=== PATIENT | female | born 1945 | race Caucasian/White ===

== ENCOUNTER → 2019-06-01 | Outpatient (REF) | payer MEDICARE, OTHER ==
[2019-06-01 16:25] LABS: BASO # 0.1 10^3/uL (0.0-0.2); EOS # 0.2 10^3/uL (0.0-0.5); HEMATOCRIT 43.4 % (36.0-47.0); HEMOGLOBIN 13.7 g/dl (12.0-15.5); LYMPH # 2.1 10^3/uL (1.5-5.0); LYMPH % 35.4 % (24.0-44.0); MEAN CORPUSCULAR HEMOGLOBIN 34.3 pg (27.0-33.0); MEAN CORPUSCULAR HGB CONC 31.6 g/dl (32.0-36.5); MEAN CORPUSCULAR VOLUME 108.5 fl (80.0-96.0); MONO # 0.9 10^3/uL (0.0-0.8); NEUTROPHILS # 2.6 10^3/uL (1.5-8.5); NEUTROPHILS % 44.4 % (36.0-66.0); PLATELET COUNT, AUTOMATED 328 10^3/uL (150-450); WHITE BLOOD COUNT 5.9 10^3/uL (4.0-10.0)
[2019-06-01 16:41] LABS: ALBUMIN 3.7 GM/DL (3.2-5.2); ALT/SGPT 19 U/L (12-78); BILIRUBIN,TOTAL 0.3 MG/DL (0.2-1.0); BLOOD UREA NITROGEN 15 MG/DL (7-18); CALCIUM LEVEL 9.2 MG/DL (8.8-10.2); CARBON DIOXIDE LEVEL 33 MEQ/L (21-32); CHLORIDE LEVEL 106 MEQ/L (98-107); CHOLESTEROL LEVEL 213 MG/DL (<200); CHOLESTEROL RISK RATIO 5.325 (<5); CREATININE FOR GFR 0.74 MG/DL (0.55-1.30); FREE THYROXINE INDEX 3.6 % (1.3-4.8); GLOMERULAR FILTRATION RATE > 60.0 (>39); GLUCOSE, FASTING 80 MG/DL (70-100); HDL CHOLESTEROL 40 MG/DL (>40); LDL CHOLESTEROL 109 MG/DL (<100); NON-HDL-C 173 MG/DL; POTASSIUM SERUM 5.1 MEQ/L (3.5-5.1); SODIUM LEVEL 143 MEQ/L (136-145); T UPTAKE 34 % (30-39); THYROXINE (T4) 10.6 UG/DL (4.5-12.0); TOTAL PROTEIN 6.7 GM/DL (6.4-8.2); TRIGLYCERIDES LEVEL 321 MG/DL (<150)
[2019-06-01 16:42] LABS: TOTAL 25(OH) VITAMIN D 29.4 NG/ML (30.0-100.0); VITAMIN B12 LEVEL 705 PG/ML (247-911)
== END ==
LOC: M SFHCCLAY 11:36
PROVIDERS: ATTEND Nurse Practitioner Family
DX: Z13.21 Encounter for screening for nutritional disorder (principal); I63.9 Cerebral infarction, unspecified; F32.9 Major depressive disorder, single episode, unspecified

== ENCOUNTER → 2019-06-23 | Outpatient (CLI) | payer MEDICARE ==
--- NOTE | 2019-06-24 06:43 | REP ---
MRI RIGHT SHOULDER: TECHNIQUE: Axial T2 fat sat, gradient echo, sagittal oblique T2 fat sat, coronal oblique T1, T2 fat sat. The supraspinatus tendon demonstrates mild tendinopathy/tendinitis. In addition there appears to be a focal full thickness tear at the anterior leading edge peripherally. Other rotator cuff tendons appear intact. There are mild hypertrophic degenerative changes of acromioclavicular joint with mild fluid in the joint. The acromion is type II. The biceps tendon is within the bicipital groove with no tendosynovitis. Moderate focal fluid is seen surrounding the supraspinatus muscle and tendon near the musculotendinous junction having an appearance most consistent with focal tenosynovitis. This is just beneath the distal end of the clavicle. There is no Hill-Sachs deformity. There is no abnormal signal in the deltoid muscle. There is mild fraying of the biceps labral complex. There is a focal tear of the posterior labrum and cartilage which breaches the adjacent bony cortex of the posterior glenoid with focal cystic change in that portion of the bone approximately 4 mm in diameter. Remaining portions of the labrum appear intact. Mild subchondral marrow edema is seen in the superolateral humeral head. There is mild fluid in the glenohumeral joint as well as in the subacromial subdeltoid bursae. IMPRESSION: Mild to moderate supraspinatus tendinopathy. Focal full thickness partial tear anterior leading edge of the tendon. There is moderate fluid surrounding the supraspinatus muscle and tendon near the musculotendinous junction having an appearance most consistent with focal tendosynovitis. There are mild hypertrophic degenerative changes of the acromioclavicular joint with a type II acromion. There is fraying of the biceps labral complex. There is a tear of the posterior labrum and adjacent cartilage, breaching the cortex of the bony glenoid with associated focal 4 mm cyst in the subchondral bone. There is also diffuse chondromalacia at the glenohumeral joint. Subcortical marrow edema superolateral humeral head. Mild fluid in the subacromial subdeltoid bursae . Electronically Signed by Ugo Hammond MD 06/24/2019 09:38 A
== END ==
LOC: M RAD 09:13
PROVIDERS: ATTEND Orthopaedic Surgery Sports Medicine
DX: S46.011A Strain of muscle(s) and tendon(s) of the rotator cuff of right shoulder, initial encounter (principal); Y92.9 Unspecified place or not applicable; Y93.9 Activity, unspecified; Y99.9 Unspecified external cause status; M19.011 Primary osteoarthritis, right shoulder

== ENCOUNTER → 2019-10-01 | Outpatient (REF) | payer OTHER ==
[~2019-10-01] MED LIST: ASPI81TA85 PO; ATOR40TA75 PO; BUPR15TASR PO; DONE5TAB82 PO; FENO160T10 PO; OMEP-218 PO; OXYB5TAB10 PO; PREG200C PO; PRIM50TA6 PO; PROP40TA62 PO; TRAZ-257 PO; VENL150C43 PO
[2019-10-01 12:07] LABS: ALBUMIN 3.3 GM/DL (3.2-5.2); BILIRUBIN,DIRECT 6.6 MG/DL (0.0-0.2); BILIRUBIN,TOTAL 8.3 MG/DL (0.2-1.0); CHOLESTEROL RISK RATIO 5.5 (<5); TOTAL PROTEIN 7.4 GM/DL (6.4-8.2)
== END ==
LOC: M SFHCCLAY 08:50
PROVIDERS: ATTEND Nurse Practitioner Family
DX: E78.5 Hyperlipidemia, unspecified (principal)

== ENCOUNTER → 2019-10-01 | Outpatient (REF) | payer OTHER ==
[2019-10-01 12:42] LABS: FOLATE > 24.0 NG/ML; VITAMIN B12 LEVEL > 2000 PG/ML
[2019-10-04 00:06] LABS: VITAMIN B1 LEVEL WHOLE BLOOD 173.8 nmol/L (66.5-200.0); VITAMIN B6,PYRIDOXAL PHOSPHATE 15.6 ug/L (2.0-32.8)
== END ==
LOC: M LABDRAWC 11:09
PROVIDERS: ATTEND Psychiatry & Neurology Neurology
DX: H53.2 Diplopia (principal); E53.8 Deficiency of other specified B group vitamins

== ENCOUNTER 2019-10-02 14:25 | Inpatient (IN) | payer MEDICARE, OTHER ==
[~2019-10-02] VITALS: Ht 157.5 cm; Wt 52.5 kg
[2019-10-02 15:14] LABS: BASO % 0.2 % (0.0-1.0); EOS % 0.2 % (0.0-3.0); HEMATOCRIT 35.1 % (36.0-47.0); HEMOGLOBIN 12.1 g/dl (12.0-15.5); LYMPH % 7.5 % (24.0-44.0); MEAN CORPUSCULAR HEMOGLOBIN 32.4 pg (27.0-33.0); MEAN CORPUSCULAR HGB CONC 34.5 g/dl (32.0-36.5); MEAN CORPUSCULAR VOLUME 94.1 fl (80.0-96.0); MONO # 1.5 10^3/uL (0.0-0.8); MONO % 11.3 % (0.0-5.0); NEUTROPHILS # 10.5 10^3/uL (1.5-8.5); NEUTROPHILS % 80.3 % (36.0-66.0); PLATELET COUNT, AUTOMATED 309 10^3/uL (150-450); RED BLOOD COUNT 3.73 10^6/uL (4.00-5.40); WHITE BLOOD COUNT 13.1 10^3/uL (4.0-10.0)
[2019-10-02] MEDS ORDERED: BUPR15TASR PO (15:22)
[2019-10-02] MEDS ORDERED: FENO160T10 PO (15:22)
[2019-10-02] MEDS ORDERED: PROP40TA62 PO (15:22)
[2019-10-02] MEDS ORDERED: PREG200C PO (15:22)
[2019-10-02] MEDS ORDERED: PRIM50TA6 PO (15:22)
[2019-10-02] MEDS ORDERED: OXYB5TAB10 PO (15:22)
[2019-10-02] MEDS ORDERED: ASPI81TA85 PO (15:22)
[2019-10-02] MEDS ORDERED: OMEP-218 PO (15:22)
[2019-10-02] MEDS ORDERED: ATOR40TA75 PO (15:22)
[2019-10-02] MEDS ORDERED: TRAZ-257 PO (15:22)
[2019-10-02] MEDS ORDERED: DONE5TAB82 PO (15:22)
[2019-10-02] MEDS ORDERED: VENL150C43 PO (15:22)
--- NOTE | 2019-10-02 15:41 | REP ---
REASON: Altered mental status. COMPARISON: None. Patchy and somewhat curvilinear right lower lobe opacities are noted. Pleural angles are sharp and the heart is not enlarged. The osseous structures are within normal limits. IMPRESSION: Right lower lobe opacities as described above. Subsegmental atelectasis versus developing pneumonia. Correlate clinically. Electronically Signed by Esteban Ellis DO 10/02/2019 04:53 P
--- NOTE | 2019-10-02 15:45 | REP ---
REASON: Altered mental status. The ventricles and sulci are within normal limits. There are no extra-axial fluid collections. There is no shift of the midline structures. Patchy lucencies are seen throughout the deep cerebral white matter. The posterior fossa is within normal limits. The cerebellopontine angles are within normal limits. The sella turcica, cavernous, and paracavernous structures are within normal limits. The imaged paranasal sinuses and mastoid air cells are clear. IMPRESSION: Age-related deep white matter ischemic changes. Electronically Signed by Esteban Ellis DO 10/02/2019 04:53 P
[2019-10-02] MEDS: GASTROGRAFIN SOLUTION 30ML PO SCH ×2 (16:09→16:34)
[2019-10-02 16:13] LABS: ACETAMINOPHEN LEVEL < 2.0 UG/ML (10.0-30.0); ALBUMIN 2.9 GM/DL (3.2-5.2); ALT/SGPT 216 U/L (12-78); BILIRUBIN,TOTAL 11.6 MG/DL (0.2-1.0); BLOOD UREA NITROGEN 9 MG/DL (7-18); CALCIUM LEVEL 8.7 MG/DL (8.8-10.2); CARBON DIOXIDE LEVEL 27 MEQ/L (21-32); CHLORIDE LEVEL 99 MEQ/L (98-107); CK-MB VALUE MASS 1.5 NG/ML (<3.6); CPK CREATINE PHOSPHOKINASE 108 U/L (26-192); CREATININE FOR GFR 0.55 MG/DL (0.55-1.30); ETHYL ALCOHOL (ETHANOL) < 0.003 % (0.000-0.010); GLOMERULAR FILTRATION RATE > 60.0 (>39); GLUCOSE, FASTING 75 MG/DL (70-100); LIPASE 121 U/L (73-393); MB/CK RELATIVE INDEX 1.39 (< OR =4); POTASSIUM SERUM 2.9 MEQ/L (3.5-5.1); SALICYLATE LEVEL < 1.7 MG/DL (5.0-30.0); SODIUM LEVEL 134 MEQ/L (136-145); TOTAL PROTEIN 6.6 GM/DL (6.4-8.2); TROPONIN I < 0.02 NG/ML (< 0.10)
[2019-10-02] MEDS ORDERED: POTASSIUM CHLORIDE 10 MEQ SR TABLET PO ONE (16:15)
[2019-10-02] MEDS ORDERED: KCL 10MEQ/100ML SWI (KRUN) 10 MEQ in IV 1 EA IV ONE (16:15)
[2019-10-02] MEDS ORDERED: ONDANSETRON 4MG/2ML VIAL As Ordered ONE (16:31)
[2019-10-02] MEDS ORDERED: ONDANSETRON 4MG/2ML VIAL IV ONE ×2 (16:45→20:00)
[2019-10-02] MEDS ORDERED: ISOVUE-370 76% 100ML VIAL As Ordered ONE (17:27)
--- NOTE | 2019-10-02 18:30 | REPVR ---
PROCEDURE INFORMATION: Exam: CT Abdomen And Pelvis With Contrast Exam date and time: 10/02/2019 5:46 PM Age: 74 years old Clinical indication: Abdominal pain; Additional info: Upper abd pain, jaundiced TECHNIQUE: Imaging protocol: Computed tomography of the abdomen and pelvis with intravenous contrast. Radiation optimization: All CT scans at this facility use at least one of these dose optimization techniques: automated exposure control; mA and/or kV adjustment per patient size (includes targeted exams where dose is matched to clinical indication); or iterative reconstruction. Contrast material: ISO 370; Contrast volume: 100 ml; Contrast route: IV; COMPARISON: No relevant prior studies available. FINDINGS: Liver: Normal. No mass. Gallbladder and bile ducts: Intrahepatic biliary ductal dilatation. There common bile duct is dilated and measuring 11 mm. Pancreas: Normal. No ductal dilation. Spleen: 1 cm hyperdense lesion in the spleen. Adrenals: Normal. No mass. Kidneys and ureters: 1.5 cm cyst at the lower pole of the right kidney. Stomach and bowel: There is rectal and distal sigmoid colonic wall thickening. No pericolonic fat stranding. Evidence of prior left colectomy. Appendix: No evidence of appendicitis. Intraperitoneal space: Unremarkable. No free air. No significant fluid collection. Vasculature: Unremarkable. No abdominal aortic aneurysm. Lymph nodes: Unremarkable. No enlarged lymph nodes. Bladder: Unremarkable as visualized. Reproductive: Unremarkable as visualized. Bones/joints: Degenerative changes of the spine. Soft tissues: Unremarkable. IMPRESSION: Common bile duct is dilated with intrahepatic biliary ductal dilatation. Findings may suggest post cholecystectomy changes, however a distal stricture or lesion in the common bile duct cannot be excluded. MRI and MRCP is suggested for further evaluation. Rectal and distal sigmoid colonic wall thickening. Differential includes infection/inflammation/neoplastic lesion. Electronically signed by: Adithya Noyola On 10/02/2019 18:30:20 PM
[2019-10-02 19:42] LABS: AMPHETAMINES LEVEL URINE NEGATIVE (NEGATIVE); BARBITURATES URINE NEGATIVE (NEGATIVE); BENZODIAZEPINES URINE NEGATIVE (NEGATIVE); CANNABINOIDS URINE NEGATIVE (NEGATIVE); COCAINE METABOLITE URINE NEGATIVE (NEGATIVE); METHADONE URINE NEGATIVE (NEGATIVE); OPIATES URINE NEGATIVE (NEGATIVE); PHENCYCLIDINE URINE NEGATIVE (NEGATIVE)
[2019-10-02] MEDS: PIPERACILLIN/TAZOBACTAM SOD 3.375 GM in D5W MINI-BAG PLUS 50 ML IV SCH (20:08)
[2019-10-02] MEDS ORDERED: ACETAMINOPHEN TAB 650MG DOSE (2X325MG) PO PRN (20:15)
[2019-10-02] MEDS ORDERED: ONDANSETRON 4MG/2ML VIAL IV PRN (20:15)
[2019-10-02] MEDS ORDERED: MOM 30ML SUSPENSION UDC PO PRN (20:15)
[2019-10-02] MEDS ORDERED: MORPHINE 2 MG/ML 1ML VIAL (J2270) IV PRN (20:45)
[2019-10-02] MEDS ORDERED: traMADol 50 MG TAB PO PRN (20:45)
[2019-10-02 21:23] LABS: INR 1.1; PROTHROMBIN TIME 13.9 SECONDS (11.8-14.0)
[2019-10-02 21:36] VITALS: BP 138/70
[2019-10-02] MEDS ORDERED: PILL CUTTER 1 EACH XX PRN (21:45)
[2019-10-02] MEDS: PRIMIDONE 50 MG TAB PO SCH (22:26)
[2019-10-02] MEDS: VENLAFAXINE **XR** 75MG CAPSULE PO SCH (22:27)
[2019-10-02] MEDS: PREGABALIN 100 MG CAP (LYRICA) PO SCH (22:27)
[2019-10-02] MEDS: oxyBUTYnin 5 MG TAB PO SCH (22:27)
[2019-10-02] MEDS: traZODone 100 MG TAB PO SCH (22:27)
[2019-10-02] MEDS: HEPARIN SOD (PORCINE) 5000UNITS/ML VIAL (J1644 PER 1000UNITS) SC SCH (22:28)
[2019-10-03] VITALS (8 sets, daily range): BP systolic 134–157; BP diastolic 62–77
[2019-10-03] MEDS: D5W/0.45% SODIUM CHLORIDE 1,000 ML IV SCH ×2 (00:28→13:08)
--- NOTE | 2019-10-03 01:11 | HPEPDOC ---
General Date of Admission Oct 02, 2019 at 20:24 Date of Service: Oct 02, 2019 Attending Physician: YENNY SALCEDO MD Chief Complaint The patient is a 74-year-old female admitted with a reason for visit of Hypokalemia,Jaundice. History of Present Illness HPI: This is a 74-year-old female presenting for sharp right-sided nonradiating abdominal pain that is intermittent and associated with nausea vomiting that started 2 days ago without any inciting factors. She denies any aggravating or alleviating factors. Also has noted gradually worsening jaundice and decreased appetite over the past 1-2 weeks, with associated 5 pound unintentional weight loss, chills, and pale-appearing stools. She reports she had similar abdominal pain with nausea and vomiting couple months ago in February 2019 when she was found to have gallstones that were removed via ERCP sweep back in [place]. She denies any recent sick contacts, travel, changes in medications or diet. Denies any fevers, shortness of breath, rashes, or blood loss. In the ER, she is noted to be severely jaundiced with T bili 11.6, direct bili 10, AST/ALT 218/216, alkaline phosphatase 322, and CT of the abdomen and pelvis showing common bile duct dilated, intrahepatic biliary duct dilation, and rectal and distal sigmoid colonic thickening. Patient is afebrile, WBC 13.1, and hemodynamically stable with normal lactate at 1.8. Patient will be admitted for further workup, and GI Dr. Torres has been consulted, pending MRCP and ERCP. 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 Admits chills and 5lb unintentional weight loss in past 1 month HEENT: Denies headache, dysphagia, odynophagia. Admits yellowing of eyes Skin: Denies any rashes or lesions. Admits jaundice Pulmonary: Denies dyspnea, cough, wheezing Cardiac: Denies chest pain, palpitations, orthopnea, PND, edema, lightheadedness GI: Denies vomiting or blood loss or constipation. Admits nausea, abdominal pain, diarrhea of loose stools, reid-colored stools, dark urine. Admits decreased po intake & decreased appetite : Denies dysuria, hematuria, retention. Admits overactive bladder MSK: Denies new pains or weakness Neurologic: Denies new numbness/tingling. Admits memory issues at baseline PHYSICAL: General exam: A&O x3, NAD, resting comfortably HEENT: NCAT, EOMI, scleral icterus present, MMM without oral lesions, neck supple Cardiac: RRR, normal S1 & S2, 2/6 systolic murmur, no edema Respiratory: CTAB, good air exchange, no w/r/r Abdomen: soft, ND, normoactive bowel sounds, no appreciable masses or splenomegaly. Tender to palpation more in LUQ. No rebound, guarding, rigidity Extremity: 2+ radial pulses, 1+ dorsalis pedis, no calf tenderness Skin: warm, dry, no visible rash. Jaundiced throughout Msk: strength 5/5 x4, normal tone Neuro: normal speech, no focal deficits. Memory issues Psych: Normal mood and affect LABORATORY DATA, MICROBIOLOGY: Please see below. ASSESSMENT AND PLAN: This is a 74 yo F presenting for abd pain, nausea, vomiting, decreased appetite, jaundice, reid-colored stools, 5-lb wt loss worsening over the past 1 week. Has a hx of gallstones that were removed with ERCP sweep in [place] in Feb 2019. Imaging this time reveals dilated CBD & intrahepatic biliary duct. 1. Jaundice - Gradually worsening last 1-2 weeks - Associated n/v abd pain, decreased appetite, reid-colored stools - T Bili 11.6, D Bili 10.0, AST/ALT 218/216, alkaline phosphatase 322 - CT abdomen and pelvis: Common bile duct dilated to 11 mm with intrahepatic biliary ductal dilation - Choledocholithiasis versus biliary stenosis/mass effect/malignancy - Hepatitis panel pending, Tox screen negative - GI Dr. Torres consulted, appreciate input: MRCP ordered. NPO after midnight for pending ERCP 10/03/19 2. Possible colitis - Abdominal pain with chills and decreased appetite, nausea and vomiting - CT abdomen pelvis noted rectal and distal sigmoid colonic wall thickening - Afebrile, but WBC 13. Imaging may be noting inflammatory changes, but will start empiric coverage with Zosyn till remaining w/u is complete - Monitor I/O, bowel mvmts. On IVF & pain control 3. Hypokalemia - 2.9 on admission. Asymptomatic - Likely 2/2 decreased po intake, increased n/v - Supplemented po & IV. Monitor on tele - repeat in am 4. Murmur - Pt denies cardiac hx or prior murmurs - Cardiac markers negative, EKG on admission in NSR in 70s with left axis deviation, no ST-T abnormalities - Hemodynamically stable with no decompensation on exam - Echo ordered For the remainder of her chronic medical conditions as listed above, home meds are resumed. DVT prophylaxis: heparin sc CODE STATUS: discussed in depth with pt, requesting FULL CODE, and HCP is her [id number] Buffy Fisher ([phone]) while her son is deployed. DISPOSITION: admit to hospital. GI consulted, pending ERCP. Home Medications Scheduled Aspirin (Aspir 81) 81 Mg Tablet.dr, 81 MG PO DAILY, (Reported) Atorvastatin Calcium (Atorvastatin Calcium) 40 Mg Tablet, 40 MG PO DAILY, (Reported) Bupropion HCl (Bupropion HCl Sr) 150 Mg Tab.er.12h, 150 MG PO DAILY, (Reported) Donepezil HCl (Donepezil HCl) 5 Mg Tablet, 5 MG PO DAILY, (Reported) Fenofibrate (Fenofibrate) 160 Mg Tablet, 160 MG PO DAILY, (Reported) Omeprazole (Omeprazole) 20 Mg Capsule.dr, 20 MG PO DAILY, (Reported) Oxybutynin Chloride (Oxybutynin Chloride) 5 Mg Tablet, 5 MG PO BID, (Reported) Pregabalin (Pregabalin) 200 Mg Capsule, 200 MG PO BID, (Reported) Primidone (Primidone) 50 Mg Tablet, 25 MG PO QHS, (Reported) Propranolol HCl (Propranolol HCl) 40 Mg Tablet, 40 MG PO DAILY, (Reported) Trazodone HCl (Trazodone HCl) 100 Mg Tablet, 100 MG PO QHS, (Reported) Venlafaxine HCl (Venlafaxine HCl ER) 150 Mg Cap.er.24h, 150 MG PO BID, (Reporte d) Allergies Coded Allergies: morphine (Verified Adverse Reaction, Mild, restlessness, 10/02/19) A-FIB/CHADSVASC A-FIB History Current/History of A-Fib/PAF?: No Vital Signs Vital Signs Date Time Temp Pulse Resp B/P (MAP) Pulse Ox O2 Delivery O2 Flow Rate FiO2 10/02/19 20:50 75 10/02/19 20:45 148/72 (97) 10/02/19 20:35 18 95 Room Air 10/02/19 14:25 97.4 Laboratory Data Labs 24H Laboratory Tests 2 10/02/19 15:02: Immature Granulocyte % (Auto) 0.5, Neutrophils (%) (Auto) 80.3H, Lymphocytes (%) (Auto) 7.5L, Monocytes (%) (Auto) 11.3H, Eosinophils (%) (Auto) 0.2, Basophils (%) (Auto) 0.2, Neutrophils # (Auto) 10.5H, Lymphocytes # (Auto) 1.0L, Monocytes # (Auto) 1.5H, Eosinophils # (Auto) 0.0, Basophils # (Auto) 0.0, Nucleated Red Blood Cells % (auto) 0.0, Anion Gap 8, Glomerular Filtration Rate > 60.0, Calcium Level 8.7L, Total Bilirubin 11.6H, Direct Bilirubin 10.0H, Aspartate Amino Transf (AST/SGOT) 218H, Alanine Aminotransferase (ALT/SGPT) 216H, Alkaline Phosphatase 322H, Ammonia < 10, Total Creatine Kinase 108, Creatine Kinase MB 1.5, Creatine Kinase MB Relative Index 1.39, Troponin I < 0.02, Total Protein 6.6, Albumin 2.9L, Albumin/Globulin Ratio 0.78L, Lipase 121, Thyroid Stimulating Hormone (TSH) 1.980, Salicylates Level < 1.7L, Acetaminophen Level < 2.0L, Ethyl Alcohol Level < 0.003 10/02/19 15:58: Urine Color GARTH, Urine Appearance CLEAR, Urine pH 6.0, Urine Specific [place] 1.006, Urine Protein NEGATIVE, Urine Glucose (UA) NEGATIVE, Urine Ketones TRACEH, Urine Blood NEGATIVE, Urine Nitrite NEGATIVE, Urine Bilirubin 2+H, Urine Urobilinogen 2.0H, Urine Leukocyte Esterase NEGATIVE, Urine WBC (Auto) 0, Urine RBC (Auto) 1, Urine Hyaline Casts (Auto) 0, Urine Bacteria (Auto) NEGATIVE, Urine Squamous Epithelial Cells 0, Urine Mucus (Auto) SMALL, Urine Sperm (Auto) 10/02/19 18:49: Urine Opiates Screen NEGATIVE, Urine Methadone Screen NEGATIVE, Urine Barbiturates Screen NEGATIVE, Urine Phencyclidine Screen NEGATIVE, Urine Amphetamines Screen NEGATIVE, Urine Benzodiazepines Screen NEGATIVE, Urine Cocaine Metabolite Screen NEGATIVE, Urine Cannabinoids Screen NEGATIVE 10/02/19 21:00: Prothrombin Time 13.9, Prothromb Time International Ratio 1.10, Magnesium Level 1.8 CBC/BMP Laboratory Tests 10/02/19 15:02 Microbiology Microbiology 10/02/19 Blood Culture, Received Pending 10/02/19 Blood Culture, Received Pending Plan / VTE VTE Prophylaxis Ordered?: Yes GME ATTESTATION GME ATTESTATION My faculty preceptor for this patient encounter was physically present during the encounter and was fully available. All aspects of the patient interview, examination, medical decision making process, and medical care plan development were reviewed and approved by the faculty preceptor. The faculty preceptor is aware and concurs with the plan as stated in the body of this note and will attest to such by his/her cosignature. ATTENDING NOTE I, Yenny Salcedo, have independently examined this patient and performed my own physical exam, as well as reviewed the documentation and edited where necessary. I have discussed in detail with the resident / student the findings and plan of treatment as documented by the resident / student and edited their note. I agree with their findings and treatment plan and have edited their documentation. I will continue to follow the patient during this hospital stay. PRECIOUS MORGAN DO Oct 03, 2019 01:10 YENNY SALCEDO MD Oct 03, 2019 03:26
[2019-10-03] MEDS: PIPERACILLIN/TAZOBACTAM SOD 3.375 GM in D5W MINI-BAG PLUS 50 ML IV SCH ×4 (02:38→21:21)
--- NOTE | 2019-10-03 06:33 | REPVR ---
PROCEDURE INFORMATION: Exam: MR Abdomen Without Contrast; Liver Exam date and time: 10/03/2019 8:07 PM Age: 74 years old Clinical indication: Other: Jaundice; Additional info: Cbd dilation, jaundice, abd pain TECHNIQUE: Imaging protocol: MR Abdomen without contrast. Exam focused on the liver. 3D rendering: MIP and/or 3D reconstructed images were created by the technologist. COMPARISON: CT ABD/PEL W/IV ORAL CONTRAS 10/02/2019 5:37 PM FINDINGS: Liver: Unremarkable liver. No lesions. Gallbladder and bile ducts: The patient is status post cholecystectomy. The CBD is dilated measuring up to 1.1 cm containing multiple filling defects with [id number] intrahepatic biliary ductal dilatation. Filling defects are also seen in the distal left hepatic lobe duct. Pancreas: Normal. Spleen: There is 1 cm and 6 mm splenic incompletely characterized T2 hyperintensity. Kidneys and ureters: There is a 1.7 x 1.6 cm right lower renal pole simple cyst. Intraperitoneal space: No free fluid. Bones/joints: There is lumbar spine scoliosis. IMPRESSION: 1. Status post cholecystectomy with multiple choledocholithiasis apparently extending to the distal left hepatic lobe duct with moderate intrahepatic biliary ductal dilatation. No obvious pancreatic head mass seen. Findings are likely the sequela distal CBD /ampullary stricture. Occult pancreatic head lesion cannot be completely excluded though felt less likely due to lack of pancreatic ductal dilatation. 2. 1 cm in 6 mm splenic incompletely characterized T2 hyperintensities. Further characterization may be obtained with contrast enhanced MRI. 3. 1.7 cm simple appearing right renal cyst. No follow-up is deemed necessary. Electronically signed by: Lopez Camilo On 10/03/2019 06:33:07 AM
[2019-10-03 06:37] LABS: HEMATOCRIT 35.5 % (36.0-47.0); MEAN CORPUSCULAR HEMOGLOBIN 32.4 pg (27.0-33.0); MEAN CORPUSCULAR HGB CONC 33.8 g/dl (32.0-36.5); MEAN CORPUSCULAR VOLUME 95.9 fl (80.0-96.0); PLATELET COUNT, AUTOMATED 307 10^3/uL (150-450); WHITE BLOOD COUNT 8.5 10^3/uL (4.0-10.0)
[2019-10-03 07:09] LABS: ALBUMIN 2.6 GM/DL (3.2-5.2); ALT/SGPT 199 U/L (12-78); BILIRUBIN,TOTAL 11.9 MG/DL (0.2-1.0); BLOOD UREA NITROGEN 10 MG/DL (7-18); CALCIUM LEVEL 8.6 MG/DL (8.8-10.2); CARBON DIOXIDE LEVEL 27 MEQ/L (21-32); CHLORIDE LEVEL 103 MEQ/L (98-107); CREATININE FOR GFR 0.71 MG/DL (0.55-1.30); GLOMERULAR FILTRATION RATE > 60.0 (>39); GLUCOSE, FASTING 77 MG/DL (70-100); POTASSIUM SERUM 3.3 MEQ/L (3.5-5.1); SODIUM LEVEL 139 MEQ/L (136-145); TOTAL PROTEIN 6.2 GM/DL (6.4-8.2)
[2019-10-03] MEDS ORDERED: KCL 10MEQ/100ML SWI (KRUN) 10 MEQ in IV 1 EA IV ONE ×3 (08:15→18:15)
[2019-10-03 08:29] LABS: MAGNESIUM LEVEL 1.8 MG/DL (1.8-2.4)
[2019-10-03] MEDS: ATORVASTATIN 20 MG TAB PO SCH (09:00)
[2019-10-03] MEDS: HEPARIN SOD (PORCINE) 5000UNITS/ML VIAL (J1644 PER 1000UNITS) SC SCH ×2 (09:00→21:22)
[2019-10-03] MEDS: VENLAFAXINE **XR** 75MG CAPSULE PO SCH ×2 (09:00→21:22)
[2019-10-03] MEDS: FENOFIBRATE 145 MG TAB (TRICOR) PO SCH (09:00)
[2019-10-03] MEDS: PROPRANOLOL 20 MG TAB PO SCH (09:00)
[2019-10-03] MEDS: oxyBUTYnin 5 MG TAB PO SCH ×2 (09:00→21:22)
[2019-10-03] MEDS: OMEPRAZOLE 20 MG CAP PO SCH (09:00)
[2019-10-03] MEDS: DONEPEZIL 5 MG TAB PO SCH (09:00)
[2019-10-03] MEDS: buPROPion **SR TABLET** (ZYBAN) 150MG PO SCH (09:00)
[2019-10-03] MEDS: ASPIRIN 81 MG ENTERIC TAB PO SCH (09:00)
[2019-10-03] MEDS: PREGABALIN 100 MG CAP (LYRICA) PO SCH ×2 (09:00→21:21)
[2019-10-03 10:58] LABS: HEPATITIS A ANTIBODY IGM NEGATIVE (NEGATIVE); HEPATITIS B CORE ANTIBODY IGM NEGATIVE (NEGATIVE); HEPATITIS B SURFACE ANTIGEN NEGATIVE (NEGATIVE); HEPATITIS C VIRUS ABY INDEX 0.1 INDEX (<0.8)
--- NOTE | 2019-10-03 13:22 | IPNPDOC ---
Text Note Date of Service The patient was seen on 10/03/19. NOTE Subjective: Patient stated that her pain subsided. She denied fever, chills, nausea, vomiting, diarrhea or dysuria Objective: VITAL SIGNS: Please see below. GENERAL: awake, alert, NAD, jaundice female HEENT: NCAT, icterus, YOSEF NECK: supple, no JVD CARDIOVASCULAR EXAMINATION: NS1S2, regular rate/rhythm RESPIRATORY EXAMINATION: CTA b/l, no wheezes/rales/rhonchi ABDOMINAL EXAMINATION: positive bowel sounds x 4, NT EXTREMITIES: no cyanosis, clubbing, edema SKIN: warm, no rashes. NEUROLOGICAL EXAMINATION: AAO x 3, no motor/sensory deficits PSYCHIATRIC EXAMINATION: calm, normal affect Assessment and plan Patient is 74 years old female with past medical history dementia, TIA presented to the hospital with abdominal pain secondary to choledocholithiasis. Sepsis Blood culture came back positive for gram-negative rods secondary to choledocholithiasis Patient has significantly elevated total bilirubin and transaminases Continue Zosyn IV I will repeat blood culture Choledocholithiasis CT abdomen and pelvis: Common bile duct dilated to 11 mm with intrahepatic biliary ductal dilation MRCP was done and showed The CBD is dilated measuring up to 1.1 cm containing multiple filling defects with [id number] intrahepatic biliary ductal dilatation ERCP today Jaundice Secondary to common bile duct dilatation See above Hypokalemia Secondary to vomiting Replaced Abdominal pain Secondary to choledocholithiasis Pain management VS,Fishbone, I+O VS, Fishbone, I+O Laboratory Tests 10/02/19 15:02 10/03/19 06:15 Vital Signs Date Time Temp Pulse Resp B/P (MAP) Pulse Ox O2 Delivery O2 Flow Rate FiO2 10/03/19 06:00 98.9 79 18 138/62 (87) 94 Room Air I&O- Last 24 Hours up to 6 AM 10/03/19 06:00 Intake Total 170 ml Output Total 800 ml Balance -630 ml JN ESQUIVEL DO Oct 03, 2019 13:22
--- NOTE | 2019-10-03 14:24 | CR.PDOC ---
General Date of Consultation: Oct 03, 2019 Referring Provider: JN ESQUIVEL DO Attending Physician: ZAY CONN MD Consultation Primary physician/ hospitalist: -Dr. Almazan Reason for consult: -Abnormal liver tests and jaundice HPI: 74-year-old female patient with HTN, HLD, depression, dementia, TIA in March 2019 (on aspirin 81 MG), presented to [facility] for abdominal pain associated with nausea and vomiting. Patient was noted with severe cholestasis in labs and had CT and ultrasound abdomen, which showed dilated CBD with prior cholecystectomy. GI was consulted for the same. Patient reports sharp right-sided nonradiating abdominal pain that is intermittent and associated with nausea vomiting that started 2 days ago without any inciting factors. She denies any aggravating or alleviating factors. Also has noted gradually worsening jaundice and decreased appetite over the past 1-2 weeks, with associated 5 pound unintentional weight loss, chills, and pale-appearing stools. She reports she had similar abdominal pain with nausea and vomiting couple months ago in February 2019 when she was found to have gallstones that were removed via ERCP sweep back in [place]. Pertinent negative GI symptoms: Patient denies fever, sick contacts, recent travel. No history of hematemesis, melena or hematochezia. Patient reports regular bowel movements. Review of Systems: GI: as stated above CVS: No chest pain, No palpitations, No leg swelling. RS: No Shortness of breath, No Wheezing, no cough PLC ENGINEER: No dizziness, No motor weakness, No sensory problems Hematology: No bruising, No gum bleeding, Musculoskeletal: No joint pain, ambulating well. Skin: No rash : No hematuria, No burning sensation of the urine ENT: No ear discharge/ pain, No dysphagia. Eyes: No photophobia. Jaundice Home medications: reviewed. Antithrombotic agents: -Aspirin 81 MG Medical h/o: As above. Surgical h/o: Multiple prior abdominal surgeries - with bowel resection in past with colostomy in past. Social h/o: Alcohol: -Remote history of heavy alcohol use, quit 30 years ago, smoking:. Denies, IVDA/ drugs: Denies. Family h/o of GI cancers - None Prior Endoscopies: None in [facility] Prior GI evaluations: -In [facility]. Patient was known to have CBD stones in the past as per HPI Exam: Vitals: reviewed General: Alert and oriented x 3, not in distress HEENT: NO pallor, no icterus. Normal oropharynx, NO cervical lymph nodes. Chest: symmetric with bilateral clear air entry, CVS: S1, S2 heard, normal, no murmurs . Abdomen: non-distended, multiple abdominal surgical scars, soft, non-tender, no palpable masses, normal bowel sounds heard. Rectal exam: Patient refused / Deferred at this time. Extremities: no pedal edema, pulses palpable. PLC ENGINEER: no focal motor or sensory deficits. Moves all extremities Skin: no rash. Labs: reviewed. Imaging: reviewed. 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 Impression: -Upper abdominal pain with nausea and vomiting, jaundice, cholestatic liver panel, and abdominal imaging including MRI liver protocol showed multiple CBD stones. Recommendations: - Patient educated about the test results, possible differential diagnoses and All questions answered. - Nothing by mouth, - IV hydration. - Continue home medications - Patient will be scheduled for ERCP with sphincterotomy, stone extraction with/without stent placement. - The procedure, indications, risks (bleeding, perforation, infection, hypotension, respiratory depression, allergy, need for endotracheal intubation, surgery, colostomy, cardiac arrest, even ), benefits, limitations (e.g., missing a lesion), and all other alternatives (including no intervention) were explained to the patient who understood and agreed for the procedure. - Please follow operative note for postprocedure recommendations Plan of care discussed with patient and primary team. Patient verbalized understanding and agreed with the plan. Vital Signs/I&O Vital Signs Date Time Temp Pulse Resp B/P (MAP) Pulse Ox O2 Delivery O2 Flow Rate FiO2 10/03/19 06:00 98.9 79 18 138/62 (87) 94 Room Air l I&O- Last 24 Hours up to 6 AM 10/03/19 05:59 Intake Total 170 ml Output Total 800 ml Balance -630 ml Laboratory Data Labs 24H Laboratory Tests 2 10/02/19 15:02: Immature Granulocyte % (Auto) 0.5, Neutrophils (%) (Auto) 80.3H, Lymphocytes (%) (Auto) 7.5L, Monocytes (%) (Auto) 11.3H, Eosinophils (%) (Auto) 0.2, Basophils (%) (Auto) 0.2, Neutrophils # (Auto) 10.5H, Lymphocytes # (Auto) 1.0L, Monocytes # (Auto) 1.5H, Eosinophils # (Auto) 0.0, Basophils # (Auto) 0.0, Nucleated Red Blood Cells % (auto) 0.0, Anion Gap 8, Glomerular Filtration Rate > 60.0, Calcium Level 8.7L, Total Bilirubin 11.6H, Direct Bilirubin 10.0H, Aspartate Amino Transf (AST/SGOT) 218H, Alanine Aminotransferase (ALT/SGPT) 216H, Alkaline Phosphatase 322H, Ammonia < 10, Total Creatine Kinase 108, Creatine Kinase MB 1.5, Creatine Kinase MB Relative Index 1.39, Troponin I < 0.02, Total Protein 6.6, Albumin 2.9L, Albumin/Globulin Ratio 0.78L, Lipase 121, Thyroid Stimulating Hormone (TSH) 1.980, Salicylates Level < 1.7L, Acetaminophen Level < 2.0L, Ethyl Alcohol Level < 0.003, Hepatitis A IgM Antibody NEGATIVE, Hepatitis B Surface Antigen NEGATIVE, Hepatitis B Core IgM Antibody NEGATIVE, Hepatitis C Antibody Index 0.1 10/02/19 15:58: Urine Color GARTH, Urine Appearance CLEAR, Urine pH 6.0, Urine Specific Moore 1.006, Urine Protein NEGATIVE, Urine Glucose (UA) NEGATIVE, Urine Ketones TRACEH, Urine Blood NEGATIVE, Urine Nitrite NEGATIVE, Urine Bilirubin 2+H, Urine Urobilinogen 2.0H, Urine Leukocyte Esterase NEGATIVE, Urine WBC (Auto) 0, Urine RBC (Auto) 1, Urine Hyaline Casts (Auto) 0, Urine Bacteria (Auto) NEGATIVE, Urine Squamous Epithelial Cells 0, Urine Mucus (Auto) SMALL, Urine Sperm (Auto) 10/02/19 18:49: Urine Opiates Screen NEGATIVE, Urine Methadone Screen NEGATIVE, Urine Barbiturates Screen NEGATIVE, Urine Phencyclidine Screen NEGATIVE, Urine Amphetamines Screen NEGATIVE, Urine Benzodiazepines Screen NEGATIVE, Urine Cocaine Metabolite Screen NEGATIVE, Urine Cannabinoids Screen NEGATIVE 10/02/19 21:00: Prothrombin Time 13.9, Prothromb Time International Ratio 1.10, Magnesium Level 1.8 10/03/19 06:15: Nucleated Red Blood Cells % (auto) 0.0, Anion Gap 9, Glomerular Filtration Rate > 60.0, Calcium Level 8.6L, Magnesium Level 1.8, Total Bilirubin 11.9H, Aspartate Amino Transf (AST/SGOT) 199H, Alanine Aminotransferase (ALT/SGPT) 199H, Alkaline Phosphatase 310H, Total Protein 6.2L, Albumin 2.6L, Albumin/Globulin Ratio 0.72L 10/03/19 13:46: Lactic Acid Level 1.1 CBC/BMP Laboratory Tests 10/02/19 15:02 10/03/19 06:15 10/03/19 13:46 Microbiology Microbiology 10/03/19 Blood Culture, Received Pending 10/02/19 Blood Culture, Received Pending 10/02/19 Blood Culture - Preliminary, Resulted Allergies Coded Allergies: morphine (Verified Adverse Reaction, Mild, restlessness, 10/02/19) Home Medications Scheduled Aspirin (Aspir 81) 81 Mg Tablet.dr, 81 MG PO DAILY, (Reported) Atorvastatin Calcium (Atorvastatin Calcium) 40 Mg Tablet, 40 MG PO DAILY, (Reported) Bupropion HCl (Bupropion HCl Sr) 150 Mg Tab.er.12h, 150 MG PO DAILY, (Reported) Donepezil HCl (Donepezil HCl) 5 Mg Tablet, 5 MG PO DAILY, (Reported) Fenofibrate (Fenofibrate) 160 Mg Tablet, 160 MG PO DAILY, (Reported) Omeprazole (Omeprazole) 20 Mg Capsule.dr, 20 MG PO DAILY, (Reported) Oxybutynin Chloride (Oxybutynin Chloride) 5 Mg Tablet, 5 MG PO BID, (Reported) Pregabalin (Pregabalin) 200 Mg Capsule, 200 MG PO BID, (Reported) Primidone (Primidone) 50 Mg Tablet, 25 MG PO QHS, (Reported) Propranolol HCl (Propranolol HCl) 40 Mg Tablet, 40 MG PO DAILY, (Reported) Trazodone HCl (Trazodone HCl) 100 Mg Tablet, 100 MG PO QHS, (Reported) Venlafaxine HCl (Venlafaxine HCl ER) 150 Mg Cap.er.24h, 150 MG PO BID, (Reported) ZAY CONN MD Oct 03, 2019 14:24
[2019-10-03] MEDS ORDERED: ISOVUE-300 61% 50ML VIAL As Ordered ONE (14:31)
[2019-10-03] MEDS ORDERED: POTASSIUM CHLORIDE 10 MEQ SR TABLET PO ONE (16:15)
[2019-10-03] MEDS ORDERED: fentaNYL 100 MCG/2 ML INJECTION (J3010) As Ordered ONE (18:19)
[2019-10-03] MEDS ORDERED: MIDAZOLAM INJ 2MG/2ML VIAL (J2250 PER 1MG) As Ordered ONE (18:19)
[2019-10-03] MEDS ORDERED: ROCURONIUM BROMIDE 50 MG/5 ML VIAL As Ordered ONE (18:20)
[2019-10-03] MEDS ORDERED: LIDOCAINE 2% 100MG/5ML SDV (FOR ANES.) As Ordered ONE (18:20)
[2019-10-03] MEDS ORDERED: ONDANSETRON 4MG/2ML VIAL As Ordered ONE (18:20)
[2019-10-03] MEDS ORDERED: dexameTHASONE 4 MG/ML 1ML VIAL (J1100 PER 1MG) As Ordered ONE (18:20)
[2019-10-03] MEDS ORDERED: SUGAMMADEX SODIUM 500 MG/5 ML VIAL (BRIDION) As Ordered ONE (19:00)
--- NOTE | 2019-10-03 20:04 | ROOR ---
Patient Name: Karli Fisher Procedure Date: 10/03/2019 6:22 PM Date of : 1945 Age: 74 Room: Main OR Gender: Female Note Status: Finalized Procedure: ERCP Indications: Bile duct stone(s), Common bile duct stricture Providers: Jean-Claude Torres MD Referring MD: 2. Inpatient 2. Inpatient, Margaret Jara NP Requesting Provider: Medicines: Monitored Anesthesia Care Complications: No immediate complications. Procedure: Pre-Anesthesia Assessment: - Prior to the procedure, a History and Physical was performed, and patient medications and allergies were reviewed. The patient is competent. The risks and benefits of the procedure and the sedation options and risks were discussed with the patient. All questions were answered and informed consent was obtained. Patient identification and proposed procedure were verified by the physician, the nurse and the anesthesiologist in the pre-procedure area. Mental Status Examination: normal. Airway Examination: normal oropharyngeal airway and neck mobility. Prophylactic Antibiotics: The patient does not require prophylactic antibiotics. Prior Anticoagulants: The patient has taken no previous anticoagulant or antiplatelet agents. ASA Grade Assessment: III - A patient with severe systemic disease. After reviewing the risks and benefits, the patient was deemed in satisfactory condition to undergo the procedure. The anesthesia plan was to use monitored anesthesia care (MAC). Immediately prior to administration of medications, the patient was re-assessed for adequacy to receive sedatives. The heart rate, respiratory rate, oxygen saturations, blood pressure, adequacy of pulmonary ventilation, and response to care were monitored throughout the procedure. The physical status of the patient was re-assessed after the procedure. The Duodenoscope was introduced through the mouth, and advanced to the duodenum and used to inject contrast into the bile duct. The ERCP was accomplished without difficulty. The patient tolerated the procedure well. Findings: The model maker scale film was normal. The esophagus was successfully intubated under direct vision without detailed examination of the pharynx, larynx, and associated structures, and upper GI tract. The upper GI tract was grossly normal. A biliary sphincterotomy had been performed. The sphincterotomy appeared open. A 0.035 inch x 260 cm straight Hydra Jagwire was passed into the biliary tree. The short-nosed traction sphincterotome was passed over the guidewire and the bile duct was then deeply cannulated. Contrast was injected. The main bile duct contained filling defect(s) thought to be a stone and sludge. The lower third of the main bile duct contained a segmental irregularity. The middle third of the main bile duct, upper third of the main bile duct and right main hepatic duct were moderately dilated and diffusely dilated, acquired. The largest diameter was 12 mm. A 1 mm biliary sphincterotomy was made with a monofilament traction (standard) sphincterotome using ERBE electrocautery. There was no post-sphincterotomy bleeding. The biliary tree was swept with a 12 mm balloon starting at the bifurcation. Pus was swept from the duct. Sludge was swept from the duct. Many stones were removed. No stones remained. Cells for cytology were obtained by brushing in the lower third of the main bile duct. The lower third of the main bile duct contained a segmental irregularity. One 10 mm by 4 cm covered metal stent was placed into the common bile duct. Bile flowed through the stent. The stent was in good position. Impression: - Prior biliary sphincterotomy appeared open. - A filling defect consistent with a stone and sludge was seen on the cholangiogram. - The upper third of the main bile duct, middle third of the main bile duct and right main hepatic duct were moderately dilated, acquired. - An irregularity was found in the lower third of the main bile duct. - An irregularity was found in the lower third of the main bile duct. - Choledocholithiasis was found. Complete removal was accomplished by biliary sphincterotomy and balloon extraction. - A biliary sphincterotomy was performed. - The biliary tree was swept and pus was found. - Cells for cytology obtained in the lower third of the main duct. - One covered metal stent was placed into the common bile duct. Recommendation: - Patient has a contact number available for emergencies. The signs and symptoms of potential delayed complications were discussed with the patient. Return to normal activities tomorrow. Written discharge instructions were provided to the patient. - Return patient to [facility] for ongoing care. - Await cytology results. - Clear liquid diet for 1 day, then advance as tolerated to resume previous diet. - Observe patient's clinical course. - Repeat ERCP in 4 months to remove stent. - Return to GI clinic in [facility] (address [address], [address], [place] [address]) in 3 months. Please call GI clinic @ [phone] for apppointment date and time. - Return to primary care physician. Attending Participation: I personally performed the entire procedure. Jean-Claude Torres MD Jean-Claude Torres MD 10/03/2019 8:04:18 PM Electronically signed by Jean-Claude Torres MD Number of Addenda: 0 Note Initiated On: 10/03/2019 6:22 PM Estimated Blood Loss: Estimated blood loss: none.
--- NOTE | 2019-10-03 20:04 | ECGEPIP ---
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
[2019-10-03] MEDS ORDERED: fentaNYL 100 MCG/2 ML INJECTION (J3010) IV PRN (20:15)
[2019-10-03] MEDS ORDERED: HYDROMORPHONE HCL 0.5 MG/ 0.5 ML SYRINGE (J1170 PER 1) IV PRN (20:15)
[2019-10-03] MEDS ORDERED: oxyCODONE 5MG TAB PO PRN (20:15)
[2019-10-03] MEDS ORDERED: LR 1,000 ML IV SCH (20:15)
[2019-10-03] MEDS ORDERED: LR 1,000 ML IV ONE (20:30)
[2019-10-03 20:37] LABS: BLOOD UREA NITROGEN 8 MG/DL (7-18); CALCIUM LEVEL 9.1 MG/DL (8.8-10.2); CARBON DIOXIDE LEVEL 30 MEQ/L (21-32); CHLORIDE LEVEL 102 MEQ/L (98-107); GLOMERULAR FILTRATION RATE > 60.0 (>39); GLUCOSE, FASTING 99 MG/DL (70-100); POTASSIUM SERUM 3.8 MEQ/L (3.5-5.1); SODIUM LEVEL 137 MEQ/L (136-145)
[2019-10-03] MEDS: traZODone 100 MG TAB PO SCH (21:22)
[2019-10-03] MEDS: PRIMIDONE 50 MG TAB PO SCH (21:22)
--- NOTE | 2019-10-03 23:10 | ECHO ---
DATE OF PROCEDURE: 10/03/2019 REFERRING PROVIDER: Dr. Hoang PATIENT LOCATION: Room 4221. REASON FOR THE STUDY: Heart murmur. 2D MEASUREMENTS: IVS: 1.0 cm LV: 4.4 cm LVPW: 0.9 cm LA: 3.5 cm Aorta: 2.6 cm RV: 2.5 cm DOPPLER MEASUREMENTS: Peak velocity across the aortic valve: 1.4 m/s Peak velocity across the LVOT: 0.8 m/s Mitral E: 0.58 Mitral A: 0.96, with a ratio of 0.6 Maximum tricuspid valve velocity: 3.9 m/s 2D COMMENTS: 1. Normal left ventricular size, wall thickness, and normal global left ventricular systolic function. The estimated left ventricular systolic ejection fraction is 60-65%. 2. Normal left atrium. Normal right atrium and right ventricle. 3. The atrial septum appeared to be normal without evidence of defect or shunt. 4. Normal aortic root. 5. Trace pericardial effusion noted; no evidence of cardiac tamponade. 6. Mildly calcified aortic valve with normal leaflet excursion. Normal mitral valve, tricuspid valve, and pulmonic valve. The proximal pulmonary artery branches were not well visualized. 7. The inferior vena cava subjectively appeared to be normal in size. DOPPLER: It detects trace aortic regurgitation, mild to moderate mitral regurgitation, and mild tricuspid regurgitation. The calculated pulmonary artery systolic pressure varies between 35 and 40 mmHg. Abnormal relaxation pattern was noted across the mitral valve leaflets as well as the mitral valve annulus, consistent with features of grade 1 left ventricular diastolic dysfunction. IMPRESSION: 1. Normal global left ventricular systolic function. There were some features of grade 1 left ventricular diastolic dysfunction manifested by abnormal relaxation. 2. Aortic valve sclerosis with trace aortic regurgitation but no aortic stenosis. 3. Mild to moderate mitral regurgitation. 4. Mild tricuspid regurgitation with mild pulmonary hypertension. 5. Trace pericardial effusion noted; no evidence of cardiac tamponade. [facility]
[2019-10-04] MEDS: LR 1,000 ML IV SCH ×2 (00:04→08:21)
[2019-10-04 00:45] VITALS: BP 145/70
[2019-10-04 00:52] LABS: BLOOD UREA NITROGEN 6 MG/DL (7-18); CALCIUM LEVEL 8.2 MG/DL (8.8-10.2); CARBON DIOXIDE LEVEL 28 MEQ/L (21-32); CHLORIDE LEVEL 103 MEQ/L (98-107); CREATININE FOR GFR 0.69 MG/DL (0.55-1.30); GLOMERULAR FILTRATION RATE > 60.0 (>39); GLUCOSE, FASTING 238 MG/DL (70-100); POTASSIUM SERUM 3.3 MEQ/L (3.5-5.1); SODIUM LEVEL 138 MEQ/L (136-145)
[2019-10-04] MEDS ORDERED: POTASSIUM CHLORIDE 10 MEQ SR TABLET PO ONE (01:45)
[2019-10-04] MEDS: PIPERACILLIN/TAZOBACTAM SOD 3.375 GM in D5W MINI-BAG PLUS 50 ML IV SCH ×2 (02:00→08:20)
--- NOTE | 2019-10-04 04:13 | REP ---
Clinical: Choledocholithiasis. Technique: Real time fluoroscopic evaluation using portable C-arm technique. Findings: Multiple images from ERCP examination demonstrate moderate diffuse extrahepatic and intrahepatic biliary ductal dilatation along with filling defects consistent with choledocholithiasis. Final images demonstrate the patient to be status post common bile duct stenting and decreased biliary dilatation. Total fluoroscopic time 2 minutes 10 seconds. Impression: Status post ductal stone extraction and common bile duct stent. Electronically Signed by Anand Henry MD 10/04/2019 04:05 A
[2019-10-04 04:17] LABS: HEMATOCRIT 32.2 % (36.0-47.0); HEMOGLOBIN 10.9 g/dl (12.0-15.5); MEAN CORPUSCULAR HEMOGLOBIN 32.1 pg (27.0-33.0); MEAN CORPUSCULAR HGB CONC 33.9 g/dl (32.0-36.5); MEAN CORPUSCULAR VOLUME 94.7 fl (80.0-96.0); PLATELET COUNT, AUTOMATED 329 10^3/uL (150-450); WHITE BLOOD COUNT 11.1 10^3/uL (4.0-10.0)
[2019-10-04 04:50] LABS: ALBUMIN 2.4 GM/DL (3.2-5.2); ALT/SGPT 184 U/L (12-78); BILIRUBIN,TOTAL 7.1 MG/DL (0.2-1.0); BLOOD UREA NITROGEN 5 MG/DL (7-18); CALCIUM LEVEL 8.6 MG/DL (8.8-10.2); CARBON DIOXIDE LEVEL 29 MEQ/L (21-32); CHLORIDE LEVEL 102 MEQ/L (98-107); CREATININE FOR GFR 0.61 MG/DL (0.55-1.30); GLOMERULAR FILTRATION RATE > 60.0 (>39); GLUCOSE, FASTING 143 MG/DL (70-100); SODIUM LEVEL 137 MEQ/L (136-145); TOTAL PROTEIN 5.9 GM/DL (6.4-8.2)
[2019-10-04 06:00] VITALS: BP 150/60
[2019-10-04] MEDS: HEPARIN SOD (PORCINE) 5000UNITS/ML VIAL (J1644 PER 1000UNITS) SC SCH (08:21)
[2019-10-04] MEDS: FENOFIBRATE 145 MG TAB (TRICOR) PO SCH (08:22)
[2019-10-04] MEDS: ASPIRIN 81 MG ENTERIC TAB PO SCH (08:22)
[2019-10-04] MEDS: PREGABALIN 100 MG CAP (LYRICA) PO SCH (08:22)
[2019-10-04] MEDS: oxyBUTYnin 5 MG TAB PO SCH (08:22)
[2019-10-04] MEDS: buPROPion **SR TABLET** (ZYBAN) 150MG PO SCH (08:22)
[2019-10-04] MEDS: OMEPRAZOLE 20 MG CAP PO SCH (08:22)
[2019-10-04] MEDS: ATORVASTATIN 20 MG TAB PO SCH (08:22)
[2019-10-04] MEDS: VENLAFAXINE **XR** 75MG CAPSULE PO SCH (08:22)
[2019-10-04] MEDS: DONEPEZIL 5 MG TAB PO SCH (08:22)
[2019-10-04 08:23] VITALS: BP 158/75
[2019-10-04] MEDS: PROPRANOLOL 20 MG TAB PO SCH (08:23)
[2019-10-04 08:48] LABS: BLOOD UREA NITROGEN 5 MG/DL (7-18); CALCIUM LEVEL 8.5 MG/DL (8.8-10.2); CARBON DIOXIDE LEVEL 28 MEQ/L (21-32); CHLORIDE LEVEL 101 MEQ/L (98-107); GLOMERULAR FILTRATION RATE > 60.0 (>39); GLUCOSE, FASTING 87 MG/DL (70-100); POTASSIUM SERUM 4.5 MEQ/L (3.5-5.1); SODIUM LEVEL 136 MEQ/L (136-145)
[2019-10-04] MEDS ORDERED: AUGM875T28 PO (11:39)
[2019-10-04] MEDS ORDERED: ACET1TAB55 PO (11:39)
[2019-10-04 12:39] LABS: BLOOD UREA NITROGEN 4 MG/DL (7-18); CALCIUM LEVEL 8.6 MG/DL (8.8-10.2); CARBON DIOXIDE LEVEL 29 MEQ/L (21-32); CHLORIDE LEVEL 100 MEQ/L (98-107); CREATININE FOR GFR 0.64 MG/DL (0.55-1.30); GLOMERULAR FILTRATION RATE > 60.0 (>39); GLUCOSE, FASTING 140 MG/DL (70-100); POTASSIUM SERUM 3.6 MEQ/L (3.5-5.1); SODIUM LEVEL 136 MEQ/L (136-145)
--- NOTE | 2019-10-04 16:02 | DS.PDOC ---
Discharge Summary General Date of Admission Oct 02, 2019 at 20:24 Date of Discharge 10/04/19 Discharge Summary PROCEDURES PERFORMED DURING STAY: [None]. ADMITTING DIAGNOSES: Sepsis Hypokalemia Jaundice Choledocholithiasis Abdominal pain DISCHARGE DIAGNOSES: Sepsis Hypokalemia Jaundice Choledocholithiasis Abdominal pain COMPLICATIONS/CHIEF COMPLAINT: Hypokalemia,Jaundice. HISTORY OF PRESENT ILLNESS:74-year-old female patient with HTN, HLD, depression, dementia, TIA in March 2019 (on aspirin 81 MG), presented to [facility] for abdominal pain associated with nausea and vomiting. Patient was noted with se kavita cholestasis in labs and had CT and ultrasound abdomen, which showed dilated CBD with prior cholecystectomy. GI was consulted for the same. Patient reports sharp right-sided nonradiating abdominal pain that is intermittent and associated with nausea vomiting that started 2 days ago without any inciting factors. She denies any aggravating or alleviating factors. Also has noted gradually worsening jaundice and decreased appetite over the past 1-2 weeks, with associated 5 pound unintentional weight loss, chills, and pale-appearing stools. She reports she had similar abdominal pain with nausea and vomiting couple months ago in February 2019 when she was found to have gallstones that were removed via ERCP sweep back in [place]. Pertinent negative GI symptoms: Patient denies fever, sick contacts, recent travel. No history of hematemesis, melena or hematochezia. Patient reports regular bowel movements. 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 HOSPITAL COURSE: During hospital stay patient received ERCP with sphincterotomy, stone extraction with stent placement. Blood culture was positive for gram-negative. Patient received treatment with Zosyn IV DISCHARGE MEDICATIONS: Please see below. ALLERGIES: Please see below. PHYSICAL EXAMINATION ON DISCHARGE: VITAL SIGNS: Please see below. GENERAL: awake, alert, NAD, jaundice female HEENT: NCAT, icterus, YOSEF NECK: supple, no JVD CARDIOVASCULAR EXAMINATION: NS1S2, regular rate/rhythm RESPIRATORY EXAMINATION: CTA b/l, no wheezes/rales/rhonchi ABDOMINAL EXAMINATION: positive bowel sounds x 4, NT EXTREMITIES: no cyanosis, clubbing, edema SKIN: warm, no rashes. NEUROLOGICAL EXAMINATION: AAO x 3, no motor/sensory deficits PSYCHIATRIC EXAMINATION: calm, normal affect LABORATORY DATA: Please see below. IMAGING: PROCEDURE INFORMATION: Exam: MR Abdomen Without Contrast; Liver Exam date and time: 10/03/2019 8:07 PM Age: 74 years old Clinical indication: Other: Jaundice; Additional info: Cbd dilation, jaundice, abd pain TECHNIQUE: Imaging protocol: MR Abdomen without contrast. Exam focused on the liver. 3D rendering: MIP and/or 3D reconstructed images were created by the technologist. COMPARISON: CT ABD/PEL W/IV ORAL CONTRAS 10/02/2019 5:37 PM FINDINGS: Liver: Unremarkable liver. No lesions. Gallbladder and bile ducts: The patient is status post cholecystectomy. The CBD is dilated measuring up to 1.1 cm containing multiple filling defects with [id number] intrahepatic biliary ductal dilatation. Filling defects are also seen in the distal left hepatic lobe duct. Pancreas: Normal. Spleen: There is 1 cm and 6 mm splenic incompletely characterized T2 hyperintensity. Kidneys and ureters: There is a 1.7 x 1.6 cm right lower renal pole simple cyst. Intraperitoneal space: No free fluid. Bones/joints: There is lumbar spine scoliosis. IMPRESSION: 1. Status post cholecystectomy with multiple choledocholithiasis apparently extending to the distal left hepatic lobe duct with moderate intrahepatic biliary ductal dilatation. No obvious pancreatic head mass seen. Findings are likely the sequela distal CBD /ampullary stricture. Occult pancreatic head lesion cannot be completely excluded though felt less likely due to lack of pancreatic ductal dilatation. 2. 1 cm in 6 mm splenic incompletely characterized T2 hyperintensities. Further characterization may be obtained with contrast enhanced MRI. 3. 1.7 cm simple appearing right renal cyst. No follow-up is deemed necessary. Electronically signed by: Rock Camilo On 10/03/2019 06:33:07 AM DD: ROCK CAMILO MD 10/03/192006 DT: REJI 10/03/19632 DS: GRACE 10/03/19632 [~ rep ct labl] PROGNOSIS: Fair ACTIVITY: [As tolerated]. DIET: Cardiac DISPOSITION: 01 Home, Self-Care. ITEMS TO FOLLOWUP ON ON OUTPATIENT: Follow-up with GI specialist and PCP DISCHARGE CONDITION: [Stable]. TIME SPENT ON DISCHARGE: Greater than 20 minutes. Vital Signs/I&Os Vital Signs Date Time Temp Pulse Resp B/P (MAP) Pulse Ox O2 Delivery O2 Flow Rate FiO2 10/04/19 08:23 78 158/75 10/04/19 06:00 99.8 17 94 Room Air I&O- Last 24 Hours up to 6 AM 10/04/19 06:00 Intake Total 2470 ml Output Total 2150 ml Balance 320 ml Laboratory Data Labs 24H Laboratory Tests 2 10/03/19 20:04: Anion Gap 5L, Glomerular Filtration Rate > 60.0, Calcium Level 9.1 10/04/19 00:14: Anion Gap 7L, Glomerular Filtration Rate > 60.0, Calcium Level 8.2L 10/04/19 04:10: Anion Gap 6L, Glomerular Filtration Rate > 60.0, Calcium Level 8.6L, Nucleated Red Blood Cells % (auto) 0.0, Total Bilirubin 7.1H, Aspartate Amino Transf (AST/SGOT) 181H, Alanine Aminotransferase (ALT/SGPT) 184H, Alkaline Phosphatase 297H, Total Protein 5.9L, Albumin 2.4L, Albumin/Globulin Ratio 0.69L 10/04/19 07:06: Anion Gap 7L, Glomerular Filtration Rate > 60.0, Calcium Level 8.5L 10/04/19 12:01: Anion Gap 7L, Glomerular Filtration Rate > 60.0, Calcium Level 8.6L CBC/BMP Laboratory Tests 10/03/19 20:04 10/04/19 00:14 10/04/19 04:10 10/04/19 07:06 10/04/19 12:01 Microbiology Microbiology 10/03/19 Blood Culture - Preliminary, Resulted No growth after 24 hours . All specim... 10/02/19 Blood Culture - Preliminary, Resulted No growth after 24 hours . All specim... 10/02/19 Blood Culture - Preliminary, Resulted Discharge Medications Scheduled Amoxicillin/Potassium Clav (Augmentin 875-125 Tablet) 1 Each Tablet, 875 MG PO BID Aspirin (Aspir 81) 81 Mg Tablet.dr, 81 MG PO DAILY, (Reported) Atorvastatin Calcium (Atorvastatin Calcium) 40 Mg Tablet, 40 MG PO DAILY, (Reported) Bupropion HCl (Bupropion HCl Sr) 150 Mg Tab.er.12h, 150 MG PO DAILY, (Reported) Donepezil HCl (Donepezil HCl) 5 Mg Tablet, 5 MG PO DAILY, (Reported) Fenofibrate (Fenofibrate) 160 Mg Tablet, 160 MG PO DAILY, (Reported) Omeprazole (Omeprazole) 20 Mg Capsule.dr, 20 MG PO DAILY, (Reported) Oxybutynin Chloride (Oxybutynin Chloride) 5 Mg Tablet, 5 MG PO BID, (Reported) Pregabalin (Pregabalin) 200 Mg Capsule, 200 MG PO BID, (Reported) Primidone (Primidone) 50 Mg Tablet, 25 MG PO QHS, (Reported) Propranolol HCl (Propranolol HCl) 40 Mg Tablet, 40 MG PO DAILY, (Reported) Trazodone HCl (Trazodone HCl) 100 Mg Tablet, 100 MG PO QHS, (Reported) Venlafaxine HCl (Venlafaxine HCl ER) 150 Mg Cap.er.24h, 150 MG PO BID, (Reported) Scheduled PRN Acetaminophen (Acetaminophen) 325 Mg Tablet, 650 MG PO Q4H PRN for PAIN OR FEVER Allergies Coded Allergies: morphine (Verified Adverse Reaction, Mild, restlessness, 10/02/19) JN ESQUIVEL DO Oct 04, 2019 16:02
== END 2019-10-04 14:52 | disposition home or self-care (01) | DRG 872 ==
LOC: M ED 14:25 → M ED INP 20:24 → ENRESERVTM 20:35 → ENRESERVDT 20:35 → M MSPAV 21:36
PROVIDERS: ADMIT Internal Medicine; ATTEND Internal Medicine
PROC: 0F798DZ Dilation of Common Bile Duct with Intraluminal Device, Via Natural or Artificial Opening Endoscopic (ICD-10-PCS; 2019-10-03)
PROC: 0FD98ZX Extraction of Common Bile Duct, Via Natural or Artificial Opening Endoscopic, Diagnostic (ICD-10-PCS; 2019-10-03)
PROC: 0FC98ZZ Extirpation of Matter from Common Bile Duct, Via Natural or Artificial Opening Endoscopic (ICD-10-PCS; principal; 2019-10-03 18:00)
DX: A41.9 Sepsis, unspecified organism (principal); R17 Unspecified jaundice; F03.90 Unspecified dementia, unspecified severity, without behavioral disturbance, psychotic disturbance, mood disturbance, and anxiety; K80.50 Calculus of bile duct without cholangitis or cholecystitis without obstruction; E87.6 Hypokalemia; R01.1 Cardiac murmur, unspecified; K21.9 Gastro-esophageal reflux disease without esophagitis; E78.5 Hyperlipidemia, unspecified; F32.9 Major depressive disorder, single episode, unspecified; N32.81 Overactive bladder; G47.00 Insomnia, unspecified; Z88.5 Allergy status to narcotic agent; Z79.82 Long term (current) use of aspirin; Z79.899 Other long term (current) drug therapy

== ENCOUNTER 2019-10-26 18:22 | Emergency (ER) | payer MEDICARE, OTHER ==
[~2019-10-26] VITALS: Ht 157.5 cm; Wt 49.8 kg
[~2019-10-26 18:22] MED LIST changes: +ACET1TAB55 PO; +AUGM875T28 PO
[2019-10-26] MEDS ORDERED: NS 1,000 ML IV ONE (19:45)
--- NOTE | 2019-10-26 19:55 | REP ---
Clinical: Lower chest and abdominal pain . Comparison: 10/02/2019 . Technique: PA and lateral. Findings: The mediastinum and cardiac silhouette are normal. The lung acosta are clear and without acute consolidation, effusion, or pneumothorax. Chronic changes at the right base again noted. The skeletal structures are intact and normal. Impression: 1. No acute cardiopulmonary process. Electronically Signed by Anand Henry MD 10/26/2019 07:47 P
[2019-10-26 20:32] LABS: BASO % 0.6 % (0.0-1.0); EOS # 0.1 10^3/uL (0.0-0.5); EOS % 1.3 % (0.0-3.0); HEMATOCRIT 40.2 % (36.0-47.0); HEMOGLOBIN 13.1 g/dl (12.0-15.5); LYMPH # 1.7 10^3/uL (1.5-5.0); MEAN CORPUSCULAR HEMOGLOBIN 31.6 pg (27.0-33.0); MEAN CORPUSCULAR HGB CONC 32.6 g/dl (32.0-36.5); MEAN CORPUSCULAR VOLUME 96.9 fl (80.0-96.0); MONO # 0.6 10^3/uL (0.0-0.8); MONO % 8.4 % (0.0-5.0); NEUTROPHILS # 4.5 10^3/uL (1.5-8.5); NEUTROPHILS % 64.6 % (36.0-66.0); PLATELET COUNT, AUTOMATED 258 10^3/uL (150-450); RED BLOOD COUNT 4.15 10^6/uL (4.00-5.40); WHITE BLOOD COUNT 6.9 10^3/uL (4.0-10.0)
[2019-10-26 20:42] LABS: INR 1.07; PROTHROMBIN TIME 13.6 SECONDS (11.8-14.0)
[2019-10-26 20:43] LABS: PARTIAL THROMBOPLASTIN TIME 31.7 SECONDS (25.0-38.4)
[2019-10-26 21:00] LABS: ALBUMIN 3.8 GM/DL (3.2-5.2); ALT/SGPT 43 U/L (12-78); AMYLASE 51 U/L (25-115); BILIRUBIN,DIRECT 0.7 MG/DL (0.0-0.2); BILIRUBIN,TOTAL 1.2 MG/DL (0.2-1.0); BLOOD UREA NITROGEN 17 MG/DL (7-18); CARBON DIOXIDE LEVEL 27 MEQ/L (21-32); CHLORIDE LEVEL 102 MEQ/L (98-107); CK-MB VALUE MASS < 1.0 NG/ML (<3.6); CPK CREATINE PHOSPHOKINASE 90 U/L (26-192); CREATININE FOR GFR 0.61 MG/DL (0.55-1.30); GLOMERULAR FILTRATION RATE > 60.0 (>39); GLUCOSE, FASTING 77 MG/DL (70-100); LIPASE 109 U/L (73-393); MB/CK RELATIVE INDEX 1.11 (< OR =4); POTASSIUM SERUM 3.9 MEQ/L (3.5-5.1); SODIUM LEVEL 138 MEQ/L (136-145); TOTAL PROTEIN 7.5 GM/DL (6.4-8.2); TROPONIN I < 0.02 NG/ML (< 0.10)
[2019-10-26] MEDS ORDERED: ISOVUE-370 76% 100ML VIAL As Ordered ONE (21:04)
--- NOTE | 2019-10-26 21:20 | ECGEPIP ---
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
--- NOTE | 2019-10-26 21:27 | REPVR ---
PROCEDURE INFORMATION: Exam: CT Abdomen And Pelvis With Contrast Exam date and time: 10/26/2019 9:12 PM Age: 74 years old Clinical indication: Abdominal pain; Generalized; Additional info: Abd pain, recent ercp with stent, ho diverticulitis sp resect TECHNIQUE: Imaging protocol: Computed tomography of the abdomen and pelvis with intravenous contrast. Radiation optimization: All CT scans at this facility use at least one of these dose optimization techniques: automated exposure control; mA and/or kV adjustment per patient size (includes targeted exams where dose is matched to clinical indication); or iterative reconstruction. Contrast material: ISOVUE 370; Contrast volume: 100 ml; Contrast route: IV; COMPARISON: CT ABD/PEL W/IV ORAL CONTRAS 10/02/2019 5:37 PM FINDINGS: Lungs: Calcified granuloma at the right lower lobe. Liver: Small right hepatic hypodensity is too small to characterize. Gallbladder and bile ducts: Stent involving the common bile duct. Pneumobilia. Previous cholecystectomy. Pancreas: Normal. No ductal dilation. Spleen: Small splenic hypodensities are too small to characterize. Adrenals: Normal. No mass. Kidneys and ureters: 1.5 cm simple right renal cyst, no follow-up recommended. Stomach and bowel: Previous partial colectomy with rectosigmoid anastomosis. Appendix: Normal appendix. Intraperitoneal space: Unremarkable. No free air. No significant fluid collection. Vasculature: Vascular calcification. Lymph nodes: Unremarkable. No enlarged lymph nodes. Bladder: Unremarkable as visualized. Reproductive: Unremarkable as visualized. Bones/joints: There are degenerative changes involving the spine. Mild superior endplate compression fracture involving T12, stable. Soft tissues: Small fat containing umbilical hernia. IMPRESSION: 1. No acute inflammatory process. 2. Mild superior endplate compression fracture involving T12, stable from prior examination. 3. Additional findings as above. Electronically signed by: Balbir Benavides On 10/26/2019 21:26:33 PM
[2019-10-26 22:02] VITALS: BP 106/58
[2019-10-27] MEDS ORDERED: ZOFR4TAB16 PO (13:00)
== END 2019-10-26 22:13 | disposition home or self-care (01) ==
LOC: M ED 18:22
DX: E80.6 Other disorders of bilirubin metabolism (principal); S30.1XXA Contusion of abdominal wall, initial encounter; X58.XXXA Exposure to other specified factors, initial encounter; Y92.89 Other specified places as the place of occurrence of the external cause; N28.1 Cyst of kidney, acquired; I10 Essential (primary) hypertension; E78.5 Hyperlipidemia, unspecified; F33.9 Major depressive disorder, recurrent, unspecified; K21.9 Gastro-esophageal reflux disease without esophagitis; G47.00 Insomnia, unspecified; Z86.73 Personal history of transient ischemic attack (TIA), and cerebral infarction without residual deficits; Z87.19 Personal history of other diseases of the digestive system; Z87.442 Personal history of urinary calculi; Z79.899 Other long term (current) drug therapy; Z79.82 Long term (current) use of aspirin; Z88.5 Allergy status to narcotic agent
CPT/HCPCS: 71046; 74177; 80048; 80076; 81001; 82150; 82550; 82553; 83605; 83690; 84484; 85025; 85610; 85730; 87040; 93005; 96360; 96361; 99284; Q9967

== ENCOUNTER 2019-10-27 10:23 | Emergency (ER) | payer MEDICARE ==
[~2019-10-27] VITALS: Ht 157.5 cm; Wt 49.6 kg
[2019-10-27] MEDS ORDERED: NS 1,000 ML IV SCH (10:44)
[2019-10-27] MEDS: ACETAMINOPHEN TAB 650MG DOSE (2X325MG) PO ONE ×2 (11:00→11:11)
[2019-10-27] MEDS: GASTROGRAFIN SOLUTION 30ML PO SCH ×2 (11:11→11:41)
[2019-10-27 11:15] LABS: BASO % 0.8 % (0.0-1.0); EOS # 0.1 10^3/uL (0.0-0.5); EOS % 2.2 % (0.0-3.0); HEMATOCRIT 39.1 % (36.0-47.0); HEMOGLOBIN 12.8 g/dl (12.0-15.5); LYMPH # 1.4 10^3/uL (1.5-5.0); MEAN CORPUSCULAR HGB CONC 32.7 g/dl (32.0-36.5); MEAN CORPUSCULAR VOLUME 97.8 fl (80.0-96.0); MONO # 0.5 10^3/uL (0.0-0.8); MONO % 10.1 % (0.0-5.0); NEUTROPHILS # 2.9 10^3/uL (1.5-8.5); NEUTROPHILS % 57.9 % (36.0-66.0); PLATELET COUNT, AUTOMATED 247 10^3/uL (150-450)
[2019-10-27 11:50] LABS: ALBUMIN 3.7 GM/DL (3.2-5.2); ALT/SGPT 36 U/L (12-78); BILIRUBIN,DIRECT 0.9 MG/DL (0.0-0.2); BILIRUBIN,TOTAL 1.1 MG/DL (0.2-1.0); BLOOD UREA NITROGEN 12 MG/DL (7-18); CALCIUM LEVEL 8.7 MG/DL (8.8-10.2); CARBON DIOXIDE LEVEL 28 MEQ/L (21-32); CHLORIDE LEVEL 104 MEQ/L (98-107); CREATININE FOR GFR 0.71 MG/DL (0.55-1.30); GLOMERULAR FILTRATION RATE > 60.0 (>39); GLUCOSE, FASTING 99 MG/DL (70-100); LIPASE 140 U/L (73-393); POTASSIUM SERUM 3.4 MEQ/L (3.5-5.1); SODIUM LEVEL 139 MEQ/L (136-145)
[2019-10-27] MEDS ORDERED: ONDANSETRON 4MG/2ML VIAL As Ordered ONE (12:04)
[2019-10-27] MEDS ORDERED: POTASSIUM CHLORIDE 10 MEQ SR TABLET PO ONE (12:15)
[2019-10-27] MEDS ORDERED: ONDANSETRON 4MG/2ML VIAL IV ONE (12:15)
[2019-10-27 12:30] VITALS: BP 153/72
[2019-10-27] MEDS ORDERED: ZOFR4TAB16 PO (13:00)
--- NOTE | 2019-11-21 06:51 | REP ---
Clinical: Diffuse abdominal pain. Technique: Axial contrast enhanced images from the lung bases to the pubic symphysis using oral (per protocol) and 100 ml Isovue 370 intravenous contrast material with coronal and sagittal re-formations. Comparison: 10/26/2019. Findings: Lung bases demonstrate chronic changes primarily involving the right lower lobe including calcified granuloma, scarring and mild bronchiectasis. Liver, spleen, pancreas, bilateral adrenal glands and kidneys are relatively normal / stable. Evidence of prior cholecystectomy with common bile duct stent identified. Renal hypodensities are again noted and suggest the possibility of cysts. The enteric system is without obstruction or acute inflammatory process. Normal terminal ileum and appendix identified in the right lower quadrant. Evidence for prior partial sigmoid resection and anastomoses. Pelvis demonstrates normal bladder and age-appropriate uterus/adnexa. No pelvic fluid or ascites. No free air. No adenopathy. Atherosclerotic changes to the aorta without aneurysm or dissection. Musculoskeletal structures demonstrate degenerative changes. Impression: 1. No acute abdominopelvic pathology appreciated. 2. Evidence of prior cholecystectomy and common bile duct stent in stable position. 3. Chronic changes at the right lung base consistent with prior granulomatous disease. 4. No ascites, free air, focal inflammatory stranding, or adenopathy. Electronically Signed by Anand Henry MD 11/21/2019 06:42 A
== END 2019-10-27 13:30 | disposition home or self-care (01) ==
LOC: M ED 10:23
DX: R10.84 Generalized abdominal pain (principal); R11.2 Nausea with vomiting, unspecified; Z88.5 Allergy status to narcotic agent
CPT/HCPCS: 74176; 80048; 80076; 83690; 85025; 93041; 96361; 96374; 99285; J2405; Q9963

== ENCOUNTER → 2019-11-13 | Outpatient (REF) | payer MEDICARE ==
[~2019-11-13] MED LIST changes: +ZOFR4TAB16 PO
[2019-11-13 11:53] LABS: HEMATOCRIT 40.6 % (36.0-47.0); MEAN CORPUSCULAR HEMOGLOBIN 31.9 pg (27.0-33.0); MEAN CORPUSCULAR VOLUME 99.5 fl (80.0-96.0); PLATELET COUNT, AUTOMATED 283 10^3/uL (150-450); RED BLOOD COUNT 4.08 10^6/uL (4.00-5.40); WHITE BLOOD COUNT 5.6 10^3/uL (4.0-10.0)
[2019-11-13 12:53] LABS: ALBUMIN 3.9 GM/DL (3.2-5.2); ALT/SGPT 41 U/L (12-78); BILIRUBIN,TOTAL 0.6 MG/DL (0.2-1.0); BLOOD UREA NITROGEN 11 MG/DL (7-18); CALCIUM LEVEL 9.2 MG/DL (8.8-10.2); CARBON DIOXIDE LEVEL 31 MEQ/L (21-32); CHLORIDE LEVEL 101 MEQ/L (98-107); CHOLESTEROL LEVEL 183 MG/DL (<200); CHOLESTEROL RISK RATIO 2.652 (<5); CREATININE FOR GFR 0.79 MG/DL (0.55-1.30); GLOMERULAR FILTRATION RATE > 60.0 (>39); GLUCOSE, FASTING 80 MG/DL (70-100); HDL CHOLESTEROL 69 MG/DL (>40); LDL CHOLESTEROL 87 MG/DL (<100); NON-HDL-C 114 MG/DL; POTASSIUM SERUM 4.1 MEQ/L (3.5-5.1); SODIUM LEVEL 138 MEQ/L (136-145); TOTAL 25(OH) VITAMIN D 56.5 NG/ML (30.0-100.0); TOTAL PROTEIN 6.7 GM/DL (6.4-8.2); TRIGLYCERIDES LEVEL 134 MG/DL (<150)
== END ==
LOC: M SFHCCLAY 09:02
PROVIDERS: ATTEND Nurse Practitioner Family
DX: I63.9 Cerebral infarction, unspecified (principal); E87.6 Hypokalemia; E78.5 Hyperlipidemia, unspecified; E55.9 Vitamin D deficiency, unspecified

== ENCOUNTER 2019-12-07 10:12 | Outpatient (RCR) | payer MEDICARE | END 2019-12-11 | LOC: M PT 10:12 | PROVIDERS: ATTEND Nurse Practitioner Family | DX: I63.9 Cerebral infarction, unspecified (principal) ==

== ENCOUNTER → 2019-12-19 | Outpatient (CLI) | payer MEDICARE ==
--- NOTE | 2019-12-21 01:12 | ECWPNPC ---
PATIENT NAME: TAY SOSA : 1945 GENDER: FEMALE VISIT DATE: 12/19/2019 DISCHARGE DATE: 12/19/19 1030 VISIT LOCKED DATE TIME: PHYSICIAN: CHAN STEVEN RESOURCE: CHAN STEVEN REASON FOR APPOINTMENT 1. CHRONIC NECK AND BACK PAIN HISTORY OF PRESENT ILLNESS GENERAL: -74-YEAR-OLD FEMALE IN FOR INITIAL PAIN CONSULT. SHE RATES HER PAIN CURRENTLY AT A 2 OUT OF 10 AND DESCRIBES IT ACHING. PATIENT ADMITS TO A HISTORY OF SPINAL INJECTIONS IN THE PAST AND HAS FOUND GOOD RELIEF WITH THEM. SHE IS CURRENTLY TAKING LYRICA TO HELP WITH RADICULAR PAIN. FALL RISK SCREENING: SCREENING :NO FALLS REPORTED IN THE LAST YEAR PAIN SCREENING: PATIENT HAS A COMPLAINT OF ACUTE OR CHRONIC PAIN :YES LOCATION OF PAIN: BILATERAL LOW BACK , BILATERAL HIPS INTENSITY OF PAIN (SCALE OF 1 TO 10):2 WHAT DOES YOUR PAIN FEEL LIKE:ACHING DURATION:ONLY WITH SPECIFIC ACTIVITIES, PERIODIC PAIN IS INCREASED BY:ACTIVITIES, PROLONGED STANDING PAIN IS DECREASED BY:USE OF PAIN MEDICATIONS NURSING NOTE: -. CURRENT MEDICATIONS TAKING OMEPRAZOLE 40 MG CAPSULE DELAYED RELEASE 1 CAPSULE 30 MINUTES BEFORE MORNING MEAL ORALLY ONCE A DAY TAKING WALKER - MISCELLANEOUS DIRECTED 4 WHEELED WALKER WITH SEAT I63.9, UNSTEADY GAIT TAKING PHYSICAL THERAPY EVALUATE AND TREAT PHYSICAL THERAPY DIRECTED I63.9, UNSTEADY GAIT 1-3X/WEEK TAKING ASPIRIN EC LOW DOSE 81 MG TABLET DELAYED RELEASE 1 TABLET ORALLY ONCE A DAY TAKING CHOLECALCIFEROL 25 MCG (1000 UT) CAPSULE 2 ORALLY ONCE A DAY TAKING VITAMIN B12 1000 MCG TABLET EXTENDED RELEASE 1 TABLET ORALLY ONCE A DAY TAKING TRAZODONE HCL 100 MG TABLET 1 TABLET AT BEDTIME ORALLY ONCE A DAY TAKING DONEPEZIL HCL 5 MG TABLET TAKE 1 TABLET BY MOUTH EVERY DAY TAKING BUPROPION HCL ER (SMOKING DET) 150 MG TABLET EXTENDED RELEASE 12 HOUR 1 TABLET IN THE MORNING ORALLY ONCE A DAY, NOTES: ZYBAN TAKING PROPRANOLOL HCL 40 MG TABLET TAKE 1 TABLET BY MOUTH ONCE DAILY FOR ESSENTIAL TREMORS TAKING VENLAFAXINE HCL ER 150 MG CAPSULE EXTENDED RELEASE 24 HOUR 1 CAPSULE WITH FOOD ORALLY BID TAKING ATORVASTATIN CALCIUM 40 MG TABLET 1 TABLET ORALLY ONCE A DAY TAKING PREGABALIN 200 MG CAPSULE 1 CAP ORALLY BID TAKING OXYBUTYNIN CHLORIDE 5 MG TABLET 1 TAB ORALLY TID TAKING FENOFIBRATE 160 MG TABLET 1 TAB ORALLY DAILY TAKING NAPROSYN 250 MG TABLET 1 TABLET WITH FOOD OR MILK ORALLY TWICE A DAY, NOTES: PT TAKES 6 AT A TIME WHEN SHE HAS PAIN MEDICATION LIST REVIEWED AND RECONCILED WITH THE PATIENT PAST MEDICAL HISTORY CVA MAR 2019 DIVERTICULOSIS GERD HYPERLIPIDEMIA MEMORY LOSS DEPRESSION OVERACTIVE BLADDER INSOMNIA SEASONAL ALLERGIES ALLERGIES MORPHINE: HEADACHE, RESTLESS - SIDE EFFECTS SURGICAL HISTORY TONSILS REMOVED PARTIAL COLECTOMY X2 CERVICAL SPINE FUSION GALLSTONES REMOVED ENDOSCOPIES ERCP WITH STENT PLACEMENT 09/2019 FAMILY HISTORY FATHER: MOTHER: 1 SISTER(S) . 1 SON(S) , 1 DAUGHTER(S) - HEALTHY. FATHER WITH ? ALZHEIMERS, MOTHER WITH DM/CANCER, HTN--SISTER WITH DM AND MULT. ISSUES. SOCIAL HISTORY GENERAL: TOBACCO USE ARE YOU A:NONSMOKER LATEX QUESTIONNAIRE LATEX ALLERGY : HAVE YOU EVER DEVELOPED ANY TYPE OF REACTION AFTER HANDLING LATEX PRODUCTS SUCH RUBBER GLOVES, CONDOMS, DIAPHRAGMS, BALLOONS, SOCKS, OR UNDERWEAR?NO LATEX ALLERGY : HAVE YOU EVER DEVELOPED ANY TYPE OF REACTION DURING OR AFTER DENTAL APPOINTMENT, VAGINAL/RECTAL EXAMINATION, SURGICAL PROCEDURE, OR ANY OTHER EXPOSURE?NO LATEX RISK : HAVE YOU EVER HAD ANY DIFFICULTY BREATHING OR HIVES AFTER EATING OR HANDLING ANY FRUITS, OR VEGETABLES; SUCH KIWI, BANANAS, STONE FRUITS, OR CHESTNUTSNO LATEX RISK : DO YOU HAVE A PREVIOUS PERSONAL HISTORY OF MORE THAN NINE SURGERIES, SPINA BIFIDA, OR REPEATED CATHERIZATIONS? NO LATEX RISK : ARE YOU FREQUENTLY EXPOSED TO LATEX PRODUCTS IN YOUR OCCUPATION?NO DATE ASKED : 12/19/2019 LUNG CANCER SCREENING SMOKING STATUS:NON SMOKER ALCOHOL SCREENING DID YOU HAVE A DRINK CONTAINING ALCOHOL IN THE PAST YEAR?NO POINTS0 INTERPRETATIONNEGATIVE RECREATIONAL DRUG USE DRUG USE?NO CAFFEINE CAFFEINE USE?YES HOW OFTEN AND HOW MUCH? 1 CUP COFFEE DAILY HIV / HEP-C SCREENING HIV TEST OFFERED TO PATIENT:YES DATE OFFERED:10/10/2019 TEST ACCEPTED:NO HEP-C TEST OFFERED TO PATIENT:YES DATE OFFERED:10/10/2019 REASON:PATIENT DECLINED TEST ACCEPTED:NO REASON:PATIENT DECLINED BROCHURE PROVIDED TO PATIENTNO LUTHERAN LUTHERAN NO PRESYBETERIAN BELIEFS THAT WOULD IMPACT HEALTH CARE. 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 DIET: REGULAR. EXERCISE: NO REGULAR EXERCISE. OTHERS AT HOME: NONE. HOSPITALIZATION/MAJOR DIAGNOSTIC PROCEDURE SURGERY CVA 03/2019 SMC: CHOLEDOCHOLITHIASIS 09/2019 REVIEW OF SYSTEMS CONSTITUTIONAL: ANY RECENT FEVER NO . CHILLS NO . WEIGHT CHANGE OF UNKNOWN REASONS NO . MUSCULOSKELETAL: ANY UNUSUAL JOINT PAIN OR SWELLING NOT MENTIONED NO . SYSTEMIC LUPUS NO . ANY NEUROMUSCULAR DISORDER NOT MENTIONED NO . LYME DISEASE NO . GASTROENTEROLOGY: ANY NEW CHANGE IN BOWEL CONTROL? NO . HISTORY OF LIVER DISORDER NOT MENTIONED NO . HISTORY OF UNUSUAL ABDOMINAL PAIN OR CRAMPING NOT MENTIONED NO . NO CONSTIPATION. GENITOURINARY: ANY NEW CHANGE IN BLADDER CONTROL? NO . ANY RENAL/KIDNEY CONDITON NOT MENTIONED NO . NEUROLOGY: HISTORY OF TBI NOT MENTIONED NO . OTHER NEW NUMBNESS OR PAIN PATTERNS NOT MENTIONED NO . NEW ONSET DIZZINESS OR NEUROLOGICAL CHANGES NOT MENTIONED NO . HISTORY OF SEVERE HEADACHES NOT MENTIONED NO . HISTORY OF STROKE OR NEUROLOGICAL DISORDER NOT MENTIONED NO . CARDIOLOGY: HEART SURGERY NO . CONGESTIVE HEART FAILURE/FLUID OVERLOAD NOT MENTIONED NO . HISTORY OF CHEST PAIN,IRREGULAR HEART BEAT NOT MENTIONED NO . RESPIRATORY: SHORTNESS OF BREATH ON EXERTION, WHEEZES, UNUSUAL COUGH NOT MENTIONED NO . ENDOCRINOLOGY: ADRENAL GLAND OR THYROID DISORDERS NOT MENTIONED NO . UNUSUAL URINATION, DIZZINESS OR LETHARGY NOT MENTIONED NO . VITAL SIGNS WT 114 LBS, HT 62 IN, BMI 20.85 INDEX, BP 130/61 MM HG, HR 65 /MIN, RR 18 /MIN, TEMP 96.3 F, OXYGEN SAT % 96%, NA INITIALS SC 09:12. EXAMINATION GENERAL EXAMINATION: GENERALNO ACUTE DISTRESS, WELL NOURISHED AND HYDRATED. PSYCHAPPROPRIATE MOOD AND AFFECT . LUNGS:CLEAR TO AUSCULTATION BILATERALLY, NO WHEEZES, RHONCHI, RALES. HEART:NO MURMURS, REGULAR RATE AND RHYTHM. BACK:POINT TENDER BILATERAL LUMBAR SPINE, SURROUNDING SKIN SHOWS NO ERYTHEMA, ECCHYMOSIS, INCREASED WARMTH, AND/OR SKIN ERUPTIONS NOTED. PATIENT DOES ENDORSE INCREASED PAIN WITH FACET LOADING. . ASSESSMENTS CHRONIC BILATERAL LOW BACK PAIN - M54.5 (PRIMARY) TREATMENT CHRONIC BILATERAL LOW BACK PAIN NOTES: BILATERAL THERAPEUTIC FACET BLOCK L3-L4, L4-L5. CLINICAL NOTES: 74 OLD FEMALE IN FOR INITIAL PAIN CONSULT. GIVEN PRESENTING SYMPTOMS AND RESULTS OF PHYSICAL EXAMINATION RECOMMEND FACET BLOCK WITH POST PROCEDURAL FOLLOW-UP. PATIENT HAS EXPRESSED UNDERSTANDING OF AND WAS IN AGREEMENT WITH TREATMENT PLAN. GIVEN TIME TO ASK QUESTIONS AND EXPRESS CONCERNS. OTHERS NOTES: FACET JOINT INJECTION MATERIAL WAS PRINTED. PROCEDURE CODES FA211 ESTABILISHED PATIENT [facility] CHARGE DISPOSITION & COMMUNICATION FOLLOW UP POST PROCEDURE (REASON: BILATERAL THERAPEUTIC FACET BLOCK L3-L4, L4-L5) ELECTRONICALLY SIGNED BY HELEN ZAFAR ON 12/20/2019 AT 08:23 AM EDT DISCLAIMER : THIS IS A VISIT SUMMARY EXTRACTED FROM THE [employer] CHART. IT IS NOT A COPY OF THE [employer] PROGRESS NOTE. BRET
== END ==
LOC: M PAIN 09:00
PROVIDERS: ATTEND Family Medicine
DX: M54.5 Low back pain (principal)

== ENCOUNTER 2020-01-02 08:26 | Outpatient (RCR) | payer MEDICARE ==
[~2020-01-02 08:26] MED LIST changes: -METH20TA31 PO
[2020-01-30] MEDS ORDERED: METH20TA31 PO (17:37)
== END 2020-01-11 ==
LOC: M PT 08:26
PROVIDERS: ATTEND Nurse Practitioner Family
DX: I63.9 Cerebral infarction, unspecified (principal)
CPT/HCPCS: 97110; 97112; C9803; U0003

== ENCOUNTER → 2020-01-02 | Outpatient (CLI) | payer MEDICARE ==
[~2020-01-02] MED LIST changes: -ASPI81TA85 PO; +ASPI81TA86 PO; +METH20TA31 PO
== END ==
LOC: M LABSMTC 09:38
PROVIDERS: ATTEND Anesthesiology
DX: Z11.59 Encounter for screening for other viral diseases (principal); Z20.828 Contact with and (suspected) exposure to other viral communicable diseases

== ENCOUNTER → 2020-01-23 | Outpatient (CLI) | payer MEDICARE ==
[~2020-01-23] MED LIST changes: +E-Z-GAS II EFFERVESCENT PACKET (SODIUM BICARB./CITRIC ACID/SIMETHICONE) As Ordered ONE; +E-Z-GAS II EFFERVESCENT PACKET (SODIUM BICARB./CITRIC ACID/SIMETHICONE) ONE; +E-Z-HD 98% w/w 340GM SUSP BTL As Ordered ONE; +E-Z-HD 98% w/w 340GM SUSP BTL ONE; +E-Z-PAQUE 96% w/w SUSP 176GM BTL As Ordered ONE; +E-Z-PAQUE 96% w/w SUSP 176GM BTL ONE; +METH20TA31 PO
--- NOTE | 2020-03-22 10:23 | REP ---
AIR-CONTRAST ESOPHAGRAM The procedure was performed under the direct supervision of Dr. Hammond. The images were reviewed with Dr. Hammond. A single view PA chest x-ray is submitted as a talent scout film. There is no change compared to a previous chest x-ray performed on 10/26/2019. Liquid barium and gas-producing granules are given in the erect position, as well as liquid barium in the prone oblique position, in order to perform a double-contrast esophagram examination. The oral and pharyngeal stages of deglutition are unremarkable. Note is made of a cervical anterior fixation plate extending from C4 through C6. During esophageal transport, there are tertiary waves demonstrated. There is no esophagitis, stricture, mucosal ring, or hiatal hernia. Gastroesophageal reflux is not demonstrated on this examination. Note is made of reflux of contrast into the biliary tree. IMPRESSION: There are tertiary waves demonstrated. Otherwise, unremarkable esophagram examination. Note is made of reflux of contrast into the biliary tree. 0.8 minutes of fluoroscopy time was utilized for this procedure. BRET
== END ==
LOC: M RAD 08:00
PROVIDERS: ATTEND Internal Medicine Gastroenterology
DX: R13.10 Dysphagia, unspecified (principal)

== ENCOUNTER → 2020-01-29 | Outpatient (CLI) | payer MEDICARE ==
[~2020-01-29] MED LIST changes: -E-Z-GAS II EFFERVESCENT PACKET (SODIUM BICARB./CITRIC ACID/SIMETHICONE) As Ordered ONE; -E-Z-GAS II EFFERVESCENT PACKET (SODIUM BICARB./CITRIC ACID/SIMETHICONE) ONE; -E-Z-HD 98% w/w 340GM SUSP BTL As Ordered ONE; -E-Z-HD 98% w/w 340GM SUSP BTL ONE; -E-Z-PAQUE 96% w/w SUSP 176GM BTL As Ordered ONE; -E-Z-PAQUE 96% w/w SUSP 176GM BTL ONE
== END ==
LOC: M PAIN 10:45
PROVIDERS: ATTEND Family Medicine
DX: M47.816 Spondylosis without myelopathy or radiculopathy, lumbar region (principal)

== ENCOUNTER → 2020-01-30 | Outpatient (CLI) | payer MEDICARE ==
--- NOTE | 2020-03-07 11:53 | REP ---
BILATERAL LOWER EXTREMITY ARTERIAL DOPPLER ULTRASOUND: HISTORY: Lower extremity pain. FINDINGS: The ankle brachial indices are normal at 1.2 on the right and the left. Mild plaquing is seen bilaterally. Relative normal biphasic waveforms are noted throughout. No high grade stenosis or occlusion is seen. VELOCITY CHART RIGHT PSV RIGHT (cm/s) Right AUTOMOTIVE UPHOLSTERER 84 Profunda 46 Proximal SFA 90 Mid-SFA 71 Distal SFA 67 Popliteal 41 Proximal BETTIE 60 Tibioperoneal trunk 76 Proximal FIRE PROTECTION DESIGNER 44 Distal FIRE PROTECTION DESIGNER 69 Distal BETTIE 52 VELOCITY CHART LEFT PSV LEFT (cm/s) Left AUTOMOTIVE UPHOLSTERER 60 Profunda 52 Proximal SFA 64 Mid-SFA 70 Distal SFA 60 Popliteal 51 Proximal BETTIE 39 Tibioperoneal trunk 66 Proximal FIRE PROTECTION DESIGNER 41 Distal FIRE PROTECTION DESIGNER 50 Distal BETTIE 69 MTDD
== END ==
LOC: M RAD 10:06
PROVIDERS: ATTEND Physician Assistant
DX: M79.606 Pain in leg, unspecified (principal)

== ENCOUNTER 2020-01-31 12:12 | Day surgery (SDC) | payer MEDICARE ==
[~2020-01-31] VITALS: Ht 157.5 cm; Wt 50.8 kg
[2020-01-31] MEDS ORDERED: ROCURONIUM BROMIDE 50 MG/5 ML VIAL As Ordered ONE (13:56)
[2020-01-31] MEDS ORDERED: dexameTHASONE 4 MG/ML 1ML VIAL (J1100 PER 1MG) As Ordered ONE (13:56)
[2020-01-31] MEDS ORDERED: LIDOCAINE 2% 100MG/5ML SDV (FOR ANES.) As Ordered ONE (13:56)
[2020-01-31] MEDS ORDERED: SUGAMMADEX SODIUM 500 MG/5 ML VIAL (BRIDION) As Ordered ONE (13:56)
[2020-01-31] MEDS ORDERED: ONDANSETRON 4MG/2ML VIAL As Ordered ONE (13:56)
[2020-01-31] MEDS ORDERED: propofoL 200 MG/20 ML VIAL As Ordered ONE (13:56)
[2020-01-31] MEDS ORDERED: fentaNYL 100 MCG/2 ML INJECTION (J3010) As Ordered ONE (13:57)
[2020-01-31] MEDS ORDERED: MIDAZOLAM INJ 2MG/2ML VIAL (J2250 PER 1MG) As Ordered ONE (13:57)
[2020-01-31] MEDS ORDERED: ISOVUE-300 61% 50ML VIAL As Ordered ONE (17:10)
[2020-01-31] MEDS ORDERED: LABETALOL 100MG/20ML VIAL As Ordered ONE (18:57)
[2020-01-31] MEDS ORDERED: hydrALAZINE 20MG/ML 1ML VIAL (J0360 PER 20MG) As Ordered ONE (19:12)
[2020-01-31] MEDS: hydrALAZINE 20MG/ML 1ML VIAL (J0360 PER 20MG) IV SCH ×3 (19:14→19:26)
[2020-01-31] MEDS ORDERED: LABETALOL 100MG/20ML VIAL IV SCH (19:15)
[2020-01-31 19:26] VITALS: BP 182/81
[2020-01-31] MEDS ORDERED: oxyCODONE 5MG TAB PO PRN (19:30)
[2020-01-31] MEDS ORDERED: fentaNYL 100 MCG/2 ML INJECTION (J3010) IV PRN (19:30)
[2020-01-31] MEDS ORDERED: HYDROMORPHONE HCL 0.5 MG/ 0.5 ML SYRINGE (J1170 PER 1) IV PRN (19:30)
[2020-01-31] MEDS ORDERED: ONDANSETRON 4MG/2ML VIAL IV PRN (19:30)
[2020-01-31] MEDS ORDERED: LR 1,000 ML IV SCH ×2 (19:30)
[2020-01-31 19:45] VITALS: BP 154/65
--- NOTE | 2020-02-20 11:26 | ROOR ---
Patient Name: Karli Fisher Procedure Date: 01/31/2020 5:29 PM Date of : 1945 Age: 74 Room: Main OR Gender: Female Note Status: Finalized Procedure: ERCP Indications: Bile duct stone(s), Biliary stent removal Providers: Jean-Claude Torres MD Referring MD: 1. No Referring Physician 1. No Referring Physician, Admin. Requesting Provider: Medicines: Monitored Anesthesia Care Complications: No immediate complications. Procedure: Pre-Anesthesia Assessment: - Prior to the procedure, a History and Physical was performed, and patient medications and allergies were reviewed. The patient is competent. The risks and benefits of the procedure and the sedation options and risks were discussed with the patient. All questions were answered and informed consent was obtained. Patient identification and proposed procedure were verified by the physician, the nurse and the anesthesiologist in the procedure room. Mental Status Examination: alert and oriented. Airway Examination: normal oropharyngeal airway and neck mobility. Respiratory Examination: clear to auscultation. CV Examination: normal. Prophylactic Antibiotics: The patient does not require prophylactic antibiotics. Prior Anticoagulants: The patient has taken no previous anticoagulant or antiplatelet agents. ASA Grade Assessment: III - A patient with severe systemic disease. After reviewing the risks and benefits, the patient was deemed in satisfactory condition to undergo the procedure. The anesthesia plan was to use general anesthesia. Immediately prior to administration of medications, the patient was re-assessed for adequacy to receive sedatives. The heart rate, respiratory rate, oxygen saturations, blood pressure, adequacy of pulmonary ventilation, and response to care were monitored throughout the procedure. The physical status of the patient was re-assessed after the procedure. The Duodenoscope was introduced through the mouth, and advanced to the duodenum and used to cannulate the bile duct. The ERCP was accomplished without difficulty. The patient tolerated the procedure well. Findings: A biliary stent was visible on the scout executive film. The scope was advanced to a normal major papilla in the descending duodenum. Examination of the pharynx, larynx and associated structures, and upper GI tract was normal. One covered metal stent originating in the biliary tree was emerging from the major papilla. The stent was partially occluded. A biliary sphincterotomy had been performed. The sphincterotomy appeared open. One stent was removed from the biliary tree using a rat-toothed forceps and snare. The stent was found to be partially occluded via the water column test. A 0.035 inch x 260 cm straight Hydra Jagwire was passed into the biliary tree. The short-nosed traction sphincterotome was passed over the guidewire and the bile duct was then deeply cannulated. Contrast was injected. I personally interpreted the bile duct images. Ductal flow of contrast was adequate. Image quality was adequate. Contrast extended to the entire biliary tree. The middle third of the main bile duct contained filling defect(s) thought to be a stone and sludge. To discover objects, the biliary tree was swept with a 10 mm balloon starting at the bifurcation. Sludge was swept from the duct. All stones were removed. Occlusion cholangiogram at the end of the procedure did not show any residual filling defects. Pancreatic duct was neither cannulated nor opacified. Impression: - One partially occluded stent from the biliary tree was seen in the major papilla. - Prior biliary sphincterotomy appeared open. - A filling defect consistent with a stone and sludge was seen on the cholangiogram. - Choledocholithiasis was found. Complete removal was accomplished by balloon extraction. - One stent was removed from the biliary tree. - The biliary tree was swept. Recommendation: - Avoid aspirin and nonsteroidal anti-inflammatory medicines. - The patient will be observed post-procedure, until all discharge criteria are met. - Patient has a contact number available for emergencies. The signs and symptoms of potential delayed complications were discussed with the patient. Return to normal activities tomorrow. Written discharge instructions were provided to the patient. - Clear liquid diet today, then advance as tolerated to high fiber diet. - Miralax 1 capful (17 grams) in 8 ounces of water PO BID for 6 days. - Return to GI clinic if persistent symptoms or new symptoms. - Return to primary care physician. Jean-Claude Torres MD Jean-Claude Torres MD 01/31/2020 6:34:39 PM Number of Addenda: 0 Note Initiated On: 01/31/2020 5:29 PM Estimated Blood Loss: Estimated blood loss was minimal.
--- NOTE | 2020-03-07 11:52 | REP ---
ERCP: 96-VIEWS HISTORY: History of dysphagia. COMPARISON: 10/03/19 78 seconds of fluoroscopy time is reported. FINDINGS: A sequence of 96 last image hold fluoroscopically obtained spot radiographs of the right upper quadrant document endoscopic cannulation and contrast injection of the common bile duct. A stent catheter is noted visible in place on several images. The previously noted common bile duct stent is not apparent. The intrahepatic bile ducts are somewhat improved from 10/03/19. MTDD
== END 2020-01-31 20:15 | disposition home or self-care (01) ==
LOC: M SDC 12:12
PROVIDERS: ATTEND Internal Medicine Gastroenterology
DX: K80.50 Calculus of bile duct without cholangitis or cholecystitis without obstruction (principal); R13.10 Dysphagia, unspecified; Z88.5 Allergy status to narcotic agent; Z79.899 Other long term (current) drug therapy
CPT/HCPCS: 43264; 43273; 43275; 74330; J0360; J1100; J2250; J2405; J3010; Q9967

== ENCOUNTER 2020-02-07 07:57 | Outpatient (RCR) | payer MEDICARE | END 2020-02-11 | LOC: M PT 07:57 | PROVIDERS: ATTEND Nurse Practitioner Family | DX: R29.6 Repeated falls (principal); M25.559 Pain in unspecified hip ==

== ENCOUNTER 2020-03-06 08:45 | Outpatient (RCR) | payer MEDICARE | END 2020-03-12 | LOC: M PT 08:45 | PROVIDERS: ATTEND Nurse Practitioner Family | DX: M25.559 Pain in unspecified hip (principal); R29.6 Repeated falls ==

== ENCOUNTER → 2020-03-10 | Outpatient (CLI) | payer MEDICARE | LOC: M PAIN 09:58 | PROVIDERS: ATTEND Family Medicine | DX: M47.817 Spondylosis without myelopathy or radiculopathy, lumbosacral region (principal) ==

== ENCOUNTER 2020-03-24 09:55 | Outpatient (CLI) | payer MEDICARE ==
[2020-03-24] MEDS ORDERED: VARIBAR NECTAR 40% w/v 240ML SUSP BTL As Ordered ONE (10:16)
[2020-03-24] MEDS ORDERED: BARIUM SULFATE 700 MG TABLET (E-Z-DISK) As Ordered ONE (10:16)
[2020-03-24] MEDS ORDERED: VARIBAR PUDDING 40% w/v 230ML TUBE As Ordered ONE (10:16)
--- NOTE | 2020-03-27 13:15 | REP ---
COOKIE SWALLOW This procedure was performed by KARINE Rivera, under the direct supervision of Dr. Rdz. The procedure was performed with Kavita Melchor from speech pathology present. 5 mL aliquots of thin, pudding, mixed fruit, soft food, hard food, and pill consistency barium was administered. Flash penetration was visualized with thin consistency barium. The detailed report of this examination will be provided by speech pathology. 2.3 minutes of fluoroscopy time was utilized for this procedure. BRET
== END 2020-03-24 12:08 ==
LOC: M ST 09:55 → EDSTATUS 11:30 → M RAD 11:30 → M ST 12:08 → M RAD 04-12 08:56
PROVIDERS: ATTEND Internal Medicine Gastroenterology
DX: R13.10 Dysphagia, unspecified (principal)

== ENCOUNTER → 2020-04-09 | Outpatient (CLI) | payer MEDICARE ==
--- NOTE | 2020-04-11 07:23 | ECWPNPC ---
PATIENT NAME: TAY SOSA : 1945 GENDER: FEMALE VISIT DATE: 04/09/2020 DISCHARGE DATE: 04/09/20940 VISIT LOCKED DATE TIME: PHYSICIAN: CHAN STEVEN PHYSICIAN PAGER NO: ACTIVE RESOURCE: CHAN STEVEN REASON FOR APPOINTMENT 1. LOW BACK PAIN HISTORY OF PRESENT ILLNESS PAIN CENTER INTAKE QUESTIONS: 74-YEAR-OLD FEMALE IN FOR CHRONIC PAIN FOLLOW-UP. SHE FEELS HER MEDICATIONS ARE HELPFUL AND DENIES MED SIDE EFFECTS AT THIS TIME. DO YOU HAVE A HISTORY OF MRSA? :NO DO YOU TAKE A BLOOD THINNERS? :NO DO YOU HAVE ANY BLEEDING DISORDERS? :NO ANY NEW NUMBNESS OR WEAKNESS IN YOUR LEGS OR ARMS? :NO ANY PACEMAKER,DEFIBRILLATOR, OR DORSAL COLUMN STIMULATOR? :NO DO YOU HAVE ANY RASHES OR OPEN SORES? :NO ARE YOU ALLERGIC TO IV DYE? :NO ARE YOU DIABETIC? :NO ANY NEW PROBLEMS WITH YOUR MEDICATIONS? :NO HAVE YOU RECEIVED A VACCINE IN THE PAST 30 DAYS? :NO DO YOU PLAN TO RECEIVE A VACCINE IN THE NEXT 21 DAYS? :NO DO YOU NEED ANY PRESCRIPTION? :NO DO YOU TAKE ANY IMMUNOSUPPRESSIVE MEDICATIONS? :NO IS THERE A CHANCE YOU COULD BE ? :NO ARE YOU BREAST FEEDING? :NO GENERAL: -. FALL RISK SCREENING: SCREENING :TWO OR MORE FALLS WITH INJURY IN THE PAST YEAR FROILAN HAD A FALL ON CONCRETE FELL GOING UP STEPS AND FRACTURED LEFT WRIST . HAD ANOTHER FALL IN BATHROOM A "COUPLE OF MONTHS AGO" PAIN SCREENING: PATIENT HAS A COMPLAINT OF ACUTE OR CHRONIC PAIN :NO NURSING NOTE: -. CURRENT MEDICATIONS TAKING OMEPRAZOLE 20 MG CAPSULE DELAYED RELEASE 1 CAPSULE 30 MINUTES BEFORE MORNING MEAL ORALLY ONCE A DAY TAKING ASPIRIN EC LOW DOSE 81 MG TABLET DELAYED RELEASE 1 TABLET ORALLY ONCE A DAY TAKING CHOLECALCIFEROL 25 MCG (1000 UT) CAPSULE 2 ORALLY ONCE A DAY TAKING VITAMIN B12 1000 MCG TABLET EXTENDED RELEASE 1 TABLET ORALLY ONCE A DAY TAKING TRAZODONE HCL 100 MG TABLET 1 TABLET AT BEDTIME ORALLY ONCE A DAY TAKING DONEPEZIL HCL 5 MG TABLET TAKE 1 TABLET BY MOUTH EVERY DAY TAKING BUPROPION HCL ER (SMOKING DET) 150 MG TABLET EXTENDED RELEASE 12 HOUR 1 TABLET IN THE MORNING ORALLY ONCE A DAY, NOTES: ZYBAN TAKING PROPRANOLOL HCL 40 MG TABLET TAKE 1 TABLET BY MOUTH ONCE DAILY FOR ESSENTIAL TREMORS TAKING VENLAFAXINE HCL ER 150 MG CAPSULE EXTENDED RELEASE 24 HOUR 1 CAPSULE WITH FOOD ORALLY BID TAKING ATORVASTATIN CALCIUM 40 MG TABLET 1 TABLET ORALLY ONCE A DAY TAKING PREGABALIN 200 MG CAPSULE 1 CAP ORALLY BID TAKING OXYBUTYNIN CHLORIDE 5 MG TABLET 1 TAB ORALLY TID TAKING PRIMIDONE 50 MG TABLET DIRECTED ORALLY TAKING FENOFIBRATE 160 MG TABLET TAKE 1 TABLET BY MOUTH DAILY NOT-TAKING WALKER - MISCELLANEOUS DIRECTED 4 WHEELED WALKER WITH SEAT I63.9, UNSTEADY GAIT MEDICATION LIST REVIEWED AND RECONCILED WITH THE PATIENT PAST MEDICAL HISTORY DIVERTICULOSIS CVA MAR 2019 GERD HYPERLIPIDEMIA MEMORY LOSS DEPRESSION OVERACTIVE BLADDER INSOMNIA SEASONAL ALLERGIES ALLERGIES MORPHINE: HEADACHE, RESTLESS - SIDE EFFECTS SURGICAL HISTORY TONSILS REMOVED PARTIAL COLECTOMY X2 CERVICAL SPINE FUSION GALLSTONES REMOVED ENDOSCOPIES ERCP WITH STENT PLACEMENT 09/2019 STENT REMOVED FAMILY HISTORY FATHER: MOTHER: 1 SISTER(S) . 1 SON(S) , 1 DAUGHTER(S) - HEALTHY. FATHER WITH ? ALZHEIMERS, MOTHER WITH DM/CANCER, HTN--SISTER WITH DM AND MULT. ISSUES. SOCIAL HISTORY GENERAL: TOBACCO USE ARE YOU A:NONSMOKER LATEX QUESTIONNAIRE LATEX ALLERGY : HAVE YOU EVER DEVELOPED ANY TYPE OF REACTION AFTER HANDLING LATEX PRODUCTS SUCH RUBBER GLOVES, CONDOMS, DIAPHRAGMS, BALLOONS, SOCKS, OR UNDERWEAR?NO LATEX ALLERGY : HAVE YOU EVER DEVELOPED ANY TYPE OF REACTION DURING OR AFTER DENTAL APPOINTMENT, VAGINAL/RECTAL EXAMINATION, SURGICAL PROCEDURE, OR ANY OTHER EXPOSURE?NO DATE ASKED : 12/19/2019 LATEX RISK : HAVE YOU EVER HAD ANY DIFFICULTY BREATHING OR HIVES AFTER EATING OR HANDLING ANY FRUITS, OR VEGETABLES; SUCH KIWI, BANANAS, STONE FRUITS, OR CHESTNUTSNO LATEX RISK : DO YOU HAVE A PREVIOUS PERSONAL HISTORY OF MORE THAN NINE SURGERIES, SPINA BIFIDA, OR REPEATED CATHERIZATIONS? NO LATEX RISK : ARE YOU FREQUENTLY EXPOSED TO LATEX PRODUCTS IN YOUR OCCUPATION?NO LUNG CANCER SCREENING SMOKING STATUS:NON SMOKER ALCOHOL SCREENING DID YOU HAVE A DRINK CONTAINING ALCOHOL IN THE PAST YEAR?NO POINTS0 INTERPRETATIONNEGATIVE RECREATIONAL DRUG USE DRUG USE?NO CAFFEINE CAFFEINE USE?YES HOW OFTEN AND HOW MUCH? 1 CUP COFFEE DAILY HIV / HEP-C SCREENING HIV TEST OFFERED TO PATIENT:YES DATE OFFERED:10/10/2019 TEST ACCEPTED:NO HEP-C TEST OFFERED TO PATIENT:YES DATE OFFERED:10/10/2019 REASON:PATIENT DECLINED TEST ACCEPTED:NO REASON:PATIENT DECLINED BROCHURE PROVIDED TO PATIENTNO GNOSTICISM GNOSTICISM NO ZOROASTRIANISM BELIEFS THAT WOULD IMPACT HEALTH CARE. 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 DIET: REGULAR. EXERCISE: NO REGULAR EXERCISE. OTHERS AT HOME: NONE. HOSPITALIZATION/MAJOR DIAGNOSTIC PROCEDURE SURGERY CVA 03/2019 SMC: CHOLEDOCHOLITHIASIS 09/2019 REVIEW OF SYSTEMS CONSTITUTIONAL: ANY RECENT FEVER NO . CHILLS NO . WEIGHT CHANGE OF UNKNOWN REASONS NO . GASTROENTEROLOGY: NEW UNEXPLAINABLE CHANGES IN BOWEL CONTROL NO . CONSTIPATION NO . GENITOURINARY: ANY NEW CHANGE IN BLADDER CONTROL? NO . NEUROLOGY: NEW ONSET DIZZINESS OR NEUROLOGICAL CHANGES NOT MENTIONED NO . NEW NUMBNESS OR PAIN PATTERNS NOT MENTIONED AND PERTINENT TO TODAY'S VISIT NO . CARDIOLOGY: NEW CHEST PRESSURE NO . NEW CHEST PAIN NO . RESPIRATORY: UNEXPLAINABLE COUGH NO . NEW SHORTNESS OF BREATH NO . VITAL SIGNS WT 116.4 LBS, HT 62 IN, BMI 21.29 INDEX, BP 140/60 MM HG, HR 69 /MIN, RR 18 /MIN, TEMP 96.6 F, OXYGEN SAT % 94%, SAFE IN ENV? (Y/N) YES, NA INITIALS WV 09:15, REVIEWED BY: KG. EXAMINATION GENERAL EXAMINATION: GENERALNO ACUTE DISTRESS, WELL NOURISHED AND HYDRATED. PSYCHAPPROPRIATE MOOD AND AFFECT . LUNGS:CLEAR TO AUSCULTATION BILATERALLY, NO WHEEZES, RHONCHI, RALES. HEART:NO MURMURS, REGULAR RATE AND RHYTHM. ASSESSMENTS OTHER CHRONIC PAIN - G89.29 (PRIMARY) CHRONIC BILATERAL LOW BACK PAIN - M54.5 TREATMENT OTHER CHRONIC PAIN START DICLOFENAC SODIUM TABLET DELAYED RELEASE, 50 MG, 1 TABLET, ORALLY, THREE TIMES DAILY, 30 DAY(S), 90 PAIN PROCEDURE LOGDATE OF [id number]/20PROCEDURE:BILAT LUMBAR FACET BLOCK L3/4 L4/5AMOUNT OF PRE SEDATE0/0 NOTES: 74-YEAR-OLD FEMALE IN FOR CHRONIC PAIN FOLLOW-UP. GIVEN PRESENTING SYMPTOMS RECOMMEND INCREASING DICLOFENAC 50 MG 3 TIMES A DAY WITH FOLLOW-UP IN 2 MONTHS. PATIENT HAS EXPRESSED UNDERSTANDING OF AND WAS IN AGREEMENT WITH TREATMENT PLAN. GIVEN TIME TO ASK QUESTIONS AND EXPRESS CONCERNS. CHRONIC BILATERAL LOW BACK PAIN NOTES: BILATERAL THERAPEUTIC FACET BLOCK L3-L4, L4-L5. CLINICAL NOTES: 74 OLD FEMALE IN FOR INITIAL PAIN CONSULT. GIVEN PRESENTING SYMPTOMS AND RESULTS OF PHYSICAL EXAMINATION RECOMMEND FACET BLOCK WITH POST PROCEDURAL FOLLOW-UP. PATIENT HAS EXPRESSED UNDERSTANDING OF AND WAS IN AGREEMENT WITH TREATMENT PLAN. GIVEN TIME TO ASK QUESTIONS AND EXPRESS CONCERNS. OTHERS NOTES: FACET JOINT INJECTION MATERIAL WAS PRINTED. PROCEDURE CODES FA211 ESTABILISHED PATIENT [facility] CHARGE DISPOSITION & COMMUNICATION FOLLOW UP 2 MONTHS (REASON: BACK PAIN) ELECTRONICALLY SIGNED BY HELEN ZAFAR ON 04/10/2020 AT 08:35 AM EDT DISCLAIMER : THIS IS A VISIT SUMMARY EXTRACTED FROM THE [employer] CHART. IT IS NOT A COPY OF THE [employer] PROGRESS NOTE. BRET
== END ==
LOC: M PAIN 09:00
PROVIDERS: ATTEND Family Medicine
DX: G89.29 Other chronic pain (principal); M54.5 Low back pain; K21.9 Gastro-esophageal reflux disease without esophagitis; E78.5 Hyperlipidemia, unspecified; F32.9 Major depressive disorder, single episode, unspecified; N32.81 Overactive bladder; G47.00 Insomnia, unspecified; J30.2 Other seasonal allergic rhinitis; R41.3 Other amnesia; Z79.82 Long term (current) use of aspirin; Z79.899 Other long term (current) drug therapy; Z88.5 Allergy status to narcotic agent

== ENCOUNTER 2020-05-06 13:41 | Outpatient (RCR) | payer MEDICARE | END 2020-05-12 | LOC: M ST 13:41 | PROVIDERS: ATTEND Internal Medicine Gastroenterology | DX: R13.10 Dysphagia, unspecified (principal) ==

== ENCOUNTER 2020-06-01 14:11 | Inpatient (IN) | payer MEDICARE ==
[~2020-06-01] VITALS: Ht 157.5 cm; Wt 49.6 kg
[2020-06-01] MEDS ORDERED: ATOR40TA75 PO (14:44)
[2020-06-01] MEDS ORDERED: NAPR250T4 PO (14:44)
[2020-06-01] MEDS ORDERED: cholecalciferol PO (14:44)
--- NOTE | 2020-06-01 15:11 | REP ---
INDICATION: aphasia COMPARISON: 10/02/2019. TECHNIQUE: Axial noncontrast images from the skull base to the thoracic inlet with coronal reformations. This CT examination was performed using the following dose reduction techniques: Automated exposure control, adjustment of mA and/or kv according to the patient's size, and use of iterative reconstruction technique. FINDINGS: Age-related atrophy and microvascular ischemic changes are appreciated. The ventricles and sulci are symmetric. Hammond-white differentiation is maintained. There is no evidence for acute intracranial hemorrhage, mass/mass effect, pathology or infarction. No extra-axial fluid collection. Calvarium is intact. Paranasal sinuses and mastoid air cells are clear. IMPRESSION: Age related atrophy and microvascular ischemic changes. No acute intracranial hemorrhage, infarction, or mass/mass effect. <Electronically signed by Anand Henry > 06/01/20 [id number]
[2020-06-01] MEDS ORDERED: ASPIRIN 325 MG TAB PO ONE (15:30)
--- NOTE | 2020-06-01 15:33 | REP ---
INDICATION: CVA COMPARISON: 10/26/2019 TECHNIQUE: Portable AP view of the chest FINDINGS: Moderate right lower lobe opacities suggesting acute pneumonia and possible pleural reaction. Remainder of the lung acosta are well aerated and clear. No pneumothorax. Visualized mediastinum and cardiac silhouette normal. Skeletal structures intact. IMPRESSION: Moderate right lower lobe opacity suggesting pneumonia and possible pleural reaction. <Electronically signed by Anand Henry > 06/01/20 152
[2020-06-01 15:35] LABS: BASO % 0.2 % (0.0-1.0); EOS % 0.2 % (0.0-3.0); HEMATOCRIT 38.5 % (36.0-47.0); HEMOGLOBIN 12.8 g/dl (12.0-15.5); LYMPH # 1.5 10^3/uL (1.5-5.0); LYMPH % 11.4 % (24.0-44.0); MEAN CORPUSCULAR HEMOGLOBIN 31.5 pg (27.0-33.0); MEAN CORPUSCULAR HGB CONC 33.2 g/dl (32.0-36.5); MEAN CORPUSCULAR VOLUME 94.8 fl (80.0-96.0); MONO # 1.4 10^3/uL (0.0-0.8); MONO % 11.3 % (0.0-5.0); NEUTROPHILS # 9.8 10^3/uL (1.5-8.5); NEUTROPHILS % 76.4 % (36.0-66.0); PLATELET COUNT, AUTOMATED 397 10^3/uL (150-450); RED BLOOD COUNT 4.06 10^6/uL (4.00-5.40); WHITE BLOOD COUNT 12.8 10^3/uL (4.0-10.0)
[2020-06-01 15:47] LABS: INR 1.01; PROTHROMBIN TIME 13.5 SECONDS (12.5-14.3)
[2020-06-01 15:48] LABS: PARTIAL THROMBOPLASTIN TIME 37.3 SECONDS (24.2-38.5)
[2020-06-01 16:04] LABS: ALBUMIN 3.4 GM/DL (3.2-5.2); ALT/SGPT 37 U/L (12-78); BILIRUBIN,DIRECT 0.3 MG/DL (0.0-0.2); BILIRUBIN,TOTAL 0.7 MG/DL (0.2-1.0); BLOOD UREA NITROGEN 15 MG/DL (7-18); CALCIUM LEVEL 10.1 MG/DL (8.8-10.2); CARBON DIOXIDE LEVEL 30 MEQ/L (21-32); CHLORIDE LEVEL 100 MEQ/L (98-107); CK-MB VALUE MASS 2.7 NG/ML (<3.6); CPK CREATINE PHOSPHOKINASE 211 U/L (26-192); CREATININE FOR GFR 0.59 MG/DL (0.55-1.30); ETHYL ALCOHOL (ETHANOL) 0.004 % (0.000-0.010); GLOMERULAR FILTRATION RATE > 60.0 (>39); GLUCOSE, FASTING 122 MG/DL (70-100); MB/CK RELATIVE INDEX 1.28 (< OR =4); POTASSIUM SERUM 2.9 MEQ/L (3.5-5.1); SODIUM LEVEL 139 MEQ/L (136-145); TOTAL PROTEIN 7.3 GM/DL (6.4-8.2); TROPONIN I < 0.02 NG/ML (< 0.10)
[2020-06-01] MEDS ORDERED: LORazepam 2 MG/ML VIAL IV STA (16:29)
[2020-06-01 16:41] LABS: AMPHETAMINES LEVEL URINE NEGATIVE (NEGATIVE); BARBITURATES URINE POSITIVE (NEGATIVE); BENZODIAZEPINES URINE NEGATIVE (NEGATIVE); CANNABINOIDS URINE NEGATIVE (NEGATIVE); COCAINE METABOLITE URINE NEGATIVE (NEGATIVE); METHADONE URINE NEGATIVE (NEGATIVE); OPIATES URINE NEGATIVE (NEGATIVE); PHENCYCLIDINE URINE NEGATIVE (NEGATIVE)
[2020-06-01] MEDS ORDERED: cefTRIAXone SOD 2 GM in D5W MINI-BAG PLUS 50 ML IV ONE (18:00)
--- NOTE | 2020-06-01 18:14 | REPVR ---
PROCEDURE INFORMATION: Exam: MR Head Without Contrast Exam date and time: 06/01/2020 3:45 PM Age: 74 years old Clinical indication: Altered mental status/memory loss; Confusion or disorientation; Additional info: Aphasia TECHNIQUE: Imaging protocol: MR of the head without contrast. COMPARISON: CT Head without contrast 06/01/2020 2:48 PM FINDINGS: Limitations: Patient motion artifact causes moderate image degradation on the T1 weighted sagittal, T1 weighted axial and gradient echo axial sequences.. Brain: There is no susceptibility artifact to indicate parenchymal calcification or blood product. Mild age-appropriate global brain atrophy. Mild small multifocal T2 hyperintensities in the cerebral white matter are nonspecific, but likely to be chronic small vessel ischemic change in a patient of this age group. No diffusion restriction to indicate a recent ischemic event. Fourth ventricle and posterior fossa contents are unremarkable. No mass effect or midline shift. No extra-axial fluid collections. Cerebral ventricles: Ventricles are within normal limits of size and configuration. Bones/joints: The calvarium is unremarkable. Paranasal sinuses: The paranasal sinuses are unremarkable. No acute sinusitis. Mastoid air cells: No significant mastoid disease. Orbits: The orbital contents are unremarkable. Soft tissues: Unremarkable. IMPRESSION: 1. No acute intracranial abnormalities. There is no diffusion restriction to indicate a recent stroke. 2. Mild age-appropriate global brain atrophy. 3. Mild/moderate microvascular ischemic changes. Electronically signed by: Marek Jang On 06/01/2020 18:13:45 PM
[2020-06-01] MEDS ORDERED: ASPI81TA26 PO (18:48)
[2020-06-01] MEDS ORDERED: POTASSIUM CHLORIDE 10 MEQ SR TABLET PO ONE ×2 (19:00→19:45)
--- NOTE | 2020-06-01 19:07 | ECGEPIP ---
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
[2020-06-01 19:10] LABS: RSV AMPLIFICATION NEGATIVE (NEGATIVE)
[2020-06-01] MEDS ORDERED: ACETAMINOPHEN TAB 650MG DOSE (2X325MG) PO PRN (19:45)
[2020-06-01] MEDS ORDERED: MOM 30ML SUSPENSION UDC PO PRN (19:45)
[2020-06-01] MEDS ORDERED: MAALOX 30 ML SUSP *UDC PO PRN (19:45)
[2020-06-01 19:58] LABS: MAGNESIUM LEVEL 1.7 MG/DL (1.8-2.4)
--- NOTE | 2020-06-01 22:23 | HPEPDOC ---
[facility] Medical History & Physical Date of Admission Jun 01, 2020 Date of Service: Jun 01, 2020 Primary Care Physician: Margaret Jara Attending Physician: CARL MATTSON MD History and Physical TIME OF SERVICE: 7:45 PM CHIEF COMPLAINT: Word finding difficulties HISTORY OF PRESENT ILLNESS: This 74-year-old female was brought to the hospital because of difficulties finding the right words to use for one day. Per ER intake notes. The patient's son said that she was confused yesterday and today whatever she said didn't make any sense. He also added that noted that she hasn't been eating. At the time of my exam, the patient reported feeling well. She admitted that she came to the hospital because her son was concerned about her, but she wasn't able to explain why he felt concerned. Her speech was fluent, and the topic of her speech was congruent with the conversation. She knew who the president was and knew that it was winter, but she was not able to tell me the date. . She denied having any fevers, chills, chest pain, cough, runny nose, joint pain or rash. She wasn't sure if she had been eating less than usual. 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 Per chart review, she isn't recovering alcoholic and does not drink in 30 yers FAMILY HISTORY: Cancer and heart disease ALLERGIES: Please see below. HOME MEDICATIONS: Please see below. PHYSICAL EXAMINATION: Vital Signs Date Time Temp Pulse Resp B/P (MAP) Pulse Ox O2 Delivery O2 Flow Rate FiO2 06/01/20 14:12 96.8 93 16 152/69 (96) 94 Room Air GEN: Slim build/ well developed/ NAD INTEGUMENT: not flushed/ not jaundice HEENT: lips acyanotic /mucus membranes moist and pink CVS: RRR/NMRG/ no JVP / radial and dorsalis pedis pulses intact / no lower extremity edema LUNGS: able to speak full sentences without stopping to take a breath / no cou ghing / lungs are clear to auscultation bilaterally on room air ABDOMEN: Contour (flat) / soft & not tender with palpation MSK/EXTREMITIES: NCAT / range of motion intact in all 4 extremities NEURO: CN 2-12 are grossly intact / speech is not dysarthric PSYCH: alert and oriented to person / able to understand and follow all commands LABORATORY DATA: 06/01/20 14:34: Bedside Glucose (Misc Panel) 123H 06/01/20 15:12: Immature Granulocyte % (Auto) 0.5, Neutrophils (%) (Auto) 76.4H, Lymphocytes (%) (Auto) 11.4L, Monocytes (%) (Auto) 11.3H, Eosinophils (%) (Auto) 0.2, Basophils (%) (Auto) 0.2, Neutrophils # (Auto) 9.8H, Lymphocytes # (Auto) 1.5, Monocytes # (Auto) 1.4H, Eosinophils # (Auto) 0.0, Basophils # (Auto) 0.0, Nucleated Red Blood Cells % (auto) 0.0, Prothrombin Time 13.5, Prothromb Time International Ratio 1.01, Activated Partial Thromboplast Time 37.3, Anion Gap 9, Glomerular Filtration Rate > 60.0, Calcium Level 10.1, Magnesium Level 1.7L, Total Bilirubin 0.7, Direct Bilirubin 0.3H, Aspartate Amino Transf (AST/SGOT) 29, Alanine Aminotransferase (ALT/SGPT) 37, Alkaline Phosphatase 89, Total Creatine Kinase 211H, Creatine Kinase MB 2.7, Creatine Kinase MB Relative Index 1.28, Troponin I < 0.02, Total Protein 7.3, Albumin 3.4, Albumin/Globulin Ratio 0.9L, Ethyl Alcohol Level 0.004 06/01/20 16:01: Urine Color GARTH, Urine Appearance HAZY, Urine pH 6.0, Urine Specific [place] 1.020, Urine Protein 1+H, Urine Glucose (UA) NEGATIVE, Urine Ketones 1+H, Urine Blood NEGATIVE, Urine Nitrite NEGATIVE, Urine Bilirubin 1+H, Urine Urobilinogen 4.0H, Urine Leukocyte Esterase NEGATIVE, Urine WBC (Auto) 2, Urine RBC (Auto) 2, Urine Hyaline Casts (Auto) 0, Urine Bacteria (Auto) NEGATIVE, Urine Squamous Epithelial Cells 3, Urine Mucus (Auto) MODERATE, Urine Sperm (Auto) , Urine Opiates Screen NEGATIVE, Urine Methadone Screen NEGATIVE, Urine Barbiturates Screen POSITIVEH, Urine Phencyclidine Screen NEGATIVE, Urine Amphetamines Screen NEGATIVE, Urine Benzodiazepines Screen NEGATIVE, Urine Cocaine Metabolite Screen NEGATIVE, Urine Cannabinoids Screen NEGATIVE 06/01/20 18:11: Coronavirus (COVID-19)(PCR) NEGATIVE, Influenza Type A (RT-PCR) NEGATIVE, Influenza Type B (RT-PCR) NEGATIVE, Respiratory Syncytial Virus (PCR) NEGATIVE IMAGING: CT head "Age related atrophy and microvascular ischemic changes. No acute intracranial hemorrhage, infarction, or mass/mass effect." Chest x-ray "Moderate right lower lobe opacity suggesting pneumonia and possible pleural reaction" MRI brain "1. No acute intracranial abnormalities. There is no diffusion restriction to indicate a recent stroke. 2. Mild age-appropriate global brain atrophy. 3. Mild/moderate microvascular ischemic changes" MICROBIOLOGY: Please see below. 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 PLAN: 1. Transient aphasia At the time of my exam, she didn't have any word finding difficulties and the topic of her speech was congruent to the conversation. Imaging of the brain was unremarkable, but her urine drug screen was positive for barbiturates. It is also possible that she had a TIA. Plan: Admit to medical floor/frequent neuro checks/telemetry / f/u carotid US in the morning / one-on-one sitter / ASA 2. Hypokalemia Likely due to poor oral intake Plan: Replete potassium. Follow-up magnesium & repeat K at 12 3. Abnormal chest xray finding Does not clinical signs or symptoms of pneumonia therefore , we'll start antibiotics. 4. Possible barbiturate abuse. Plan: Will ask the daytime team to obtain additional history from the patient's son in the morning / fall precautions 5. Dementia with Depression Plan: Donepezil, bupropion, venlafaxine/hold trazodone to avoid oversedation 6. DLP Plan: Atorvastatin, fenofibrate 7. Chronic HTN Plan: Propranolol DVT PROPHYLAXIS: lovenox DISPOSITION: home after more than 2 midnight's stay Late entry 4:36 AM Repeat potassium and magnesium were low. Plan: Give additional potassium, chloride, along with mag oxide Home Medications Scheduled Aspirin (Aspirin EC) 81 Mg Tablet.dr, 81 MG PO DAILY Atorvastatin Calcium (Atorvastatin Calcium) 40 Mg Tablet, 40 MG PO DAILY Bupropion HCl (Bupropion HCl Sr) 150 Mg Tab.er.12h, 150 MG PO DAILY Donepezil HCl (Donepezil HCl) 5 Mg Tablet, 5 MG PO DAILY Fenofibrate (Fenofibrate) 160 Mg Tablet, 160 MG PO DAILY Omeprazole (Omeprazole) 20 Mg Capsule.dr, 20 MG PO DAILY Oxybutynin Chloride (Oxybutynin Chloride) 5 Mg Tablet, 5 MG PO TID Pregabalin (Pregabalin) 200 Mg Capsule, 200 MG PO BID Propranolol HCl (Propranolol HCl) 40 Mg Tablet, 40 MG PO DAILY Trazodone HCl (Trazodone HCl) 100 Mg Tablet, 100 MG PO QHS Venlafaxine HCl (Venlafaxine HCl ER) 150 Mg Cap.er.24h, 150 MG PO BID Allergies Coded Allergies: morphine (Verified Adverse Reaction, Mild, restlessness, 10/02/19) A-FIB/CHADSVASC A-FIB History Current/History of A-Fib/PAF?: No Current PO Anticoag Therapy: No CARL MATTSON MD Jun 01, 2020 22:23
[2020-06-01 22:40] VITALS: BP 158/81
[2020-06-01] MEDS: ASPIRIN 81 MG ENTERIC TAB PO SCH (23:08)
[2020-06-01] MEDS: ENOXAPARIN 40MG/0.4ML SYRINGE (J1650 PER 10MG) SC SCH (23:08)
[2020-06-01] MEDS: PREGABALIN 100 MG CAP (LYRICA) PO SCH (23:08)
[2020-06-01] MEDS: VENLAFAXINE **XR** 75MG CAPSULE PO SCH (23:08)
[2020-06-02] MEDS ORDERED: MAGNESIUM OXIDE 400 MG TAB (MAG-OX) PO ONE (04:45)
[2020-06-02] MEDS ORDERED: POTASSIUM CHLORIDE 10 MEQ SR TABLET PO ONE ×2 (04:45→19:00)
[2020-06-02 06:00] VITALS: BP 130/73
[2020-06-02 06:34] LABS: HEMATOCRIT 37.7 % (36.0-47.0); HEMOGLOBIN 12.7 g/dl (12.0-15.5); MEAN CORPUSCULAR HEMOGLOBIN 33.1 pg (27.0-33.0); MEAN CORPUSCULAR HGB CONC 33.7 g/dl (32.0-36.5); MEAN CORPUSCULAR VOLUME 98.2 fl (80.0-96.0); PLATELET COUNT, AUTOMATED 375 10^3/uL (150-450); RED BLOOD COUNT 3.84 10^6/uL (4.00-5.40); WHITE BLOOD COUNT 13.9 10^3/uL (4.0-10.0)
[2020-06-02 07:05] LABS: BLOOD UREA NITROGEN 14 MG/DL (7-18); CALCIUM LEVEL 9.4 MG/DL (8.8-10.2); CARBON DIOXIDE LEVEL 31 MEQ/L (21-32); CHLORIDE LEVEL 102 MEQ/L (98-107); CREATININE FOR GFR 0.59 MG/DL (0.55-1.30); GLOMERULAR FILTRATION RATE > 60.0 (>39); GLUCOSE, FASTING 87 MG/DL (70-100); POTASSIUM SERUM 3.2 MEQ/L (3.5-5.1); SODIUM LEVEL 141 MEQ/L (136-145)
[2020-06-02] MEDS: DONEPEZIL 5 MG TAB PO SCH (08:41)
[2020-06-02] MEDS: OMEPRAZOLE 20 MG CAP PO SCH (08:41)
[2020-06-02] MEDS: VENLAFAXINE **XR** 75MG CAPSULE PO SCH ×2 (08:41→20:00)
[2020-06-02] MEDS: ATORVASTATIN 20 MG TAB PO SCH (08:41)
[2020-06-02] MEDS: buPROPion **SR TABLET** (ZYBAN) 150MG PO SCH (08:41)
[2020-06-02] MEDS: oxyBUTYnin 5 MG TAB PO SCH ×3 (08:41→20:01)
[2020-06-02] MEDS: FENOFIBRATE 145 MG TAB (TRICOR) PO SCH (08:41)
[2020-06-02] MEDS: PREGABALIN 100 MG CAP (LYRICA) PO SCH ×2 (08:42→20:01)
[2020-06-02] MEDS: PROPRANOLOL 20 MG TAB PO SCH (08:44)
[2020-06-02 13:04] LABS: BLOOD UREA NITROGEN 19 MG/DL (7-18); CALCIUM LEVEL 9.8 MG/DL (8.8-10.2); CARBON DIOXIDE LEVEL 32 MEQ/L (21-32); CHLORIDE LEVEL 104 MEQ/L (98-107); CREATININE FOR GFR 0.85 MG/DL (0.55-1.30); GLOMERULAR FILTRATION RATE > 60.0 (>39); GLUCOSE, FASTING 102 MG/DL (70-100); POTASSIUM SERUM 3.4 MEQ/L (3.5-5.1); SODIUM LEVEL 141 MEQ/L (136-145)
[2020-06-02 14:00] VITALS: BP 129/79
--- NOTE | 2020-06-02 14:10 | REP ---
INDICATION: transient aphasia COMPARISON: None. TECHNIQUE: Real-time ultrasound evaluation and duplex Doppler interrogation of the extracranial carotid vasculature is performed. FINDINGS: There is mild plaquing and narrowing in both carotid bulbs extending into the internal and external carotid arteries. Luminal narrowing is less than 50%. There is no evidence of hemodynamically significant stenosis of either internal carotid artery. Normal flow velocities are seen. The vertebral arteries demonstrate normal direction of flow. RIGHT LEFT Peak systolic velocity ICA 75.2 cm/s 163.6 cm/s End diastolic velocity ICA 21.2 cm/s 43.5 cm/s Peak systolic velocity CCA 91.0 cm/s 99.0cm/s Peak systolic velocity ECA 57.1 cm/s 67.0 cm/s ICA/CCA ratio 0.8 1.6 IMPRESSION: Bilateral luminal narrowing of the internal carotid arteries less than 50%. No evidence of hemodynamically significant stenosis. <Electronically signed by Ugo Hammond > 06/02/20 [id number]
--- NOTE | 2020-06-02 19:00 | IPNPDOC ---
Date Seen The patient was seen on 06/02/20. Progress Note SUBJECTIVE: Improved mentation per nursing, still slightly confused when I evaluated her. Had to repeat I was the doctor several times during conversation. She is eating, drinking well. Replaced potassium twice today. Denies chest pain, shortness of breath, fevers, chills, n/v/d. OBJECTIVE: PHYSICAL EXAM: VS: Please see below GEN: Slim build/ well developed/ NAD, pleasantly confused at times during conversation INTEGUMENT: not flushed/ not jaundice HEENT: lips acyanotic /mucus membranes moist and pink CVS: RRR/NMRG/ no JVP / radial and dorsalis pedis pulses intact / no lower ext remity edema LUNGS: able to speak full sentences without stopping to take a breath / no coughing / lungs are clear to auscultation bilaterally on room air ABDOMEN: Contour (flat) / soft & not tender with palpation MSK/EXTREMITIES: NCAT / range of motion intact in all 4 extremities NEURO: CN 2-12 are grossly intact / speech is not dysarthric , slightly confused at times PSYCH: mood and affect are appropriate. LABORATORY DATA: Please see below MICROBIOLOGY: Please see below. IMAGING: Carotid US: Bilateral luminal narrowing of the internal carotid arteries less than 50%. No evidence of hemodynamically significant stenosis. CT head : Age related atrophy and microvascular ischemic changes. No acute intracranial hemorrhage, infarction, or mass/mass effect. Chest x-ray: Moderate right lower lobe opacity suggesting pneumonia and possible pleural reaction MRI brain 1. No acute intracranial abnormalities. There is no diffusion restriction to indicate a recent stroke. 2. Mild age-appropriate global brain atrophy. 3. 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 PLAN: Transient aphasia cannot r/o 2/2 to barbiturate use vs. TIA vs. possible infection (PnA?): -No word finding difficulties just slightly confused during conversation: had to remind her who I was several times -WBC increased today to 13.9, afebrile, UA neg, blood cultures ordered -US carotid arteries neg -Neuro checks neg -PT: would beneift from 1-2 more session of skilled PT to futher examin her poor safety awareness and assess appropriate d/c plan; pt at this time appears most appropriate for rehab d/t decreased safety, and impulsivity; pt would also benefit from TITLE 1 TUTOR eval -F/u speech evaluation -C/w ASA, statin, abx PNA vs. aspiration -CXR: Moderate right lower lobe opacity suggesting pneumonia and possible pleural reaction. -Findings on CXR, could this be aspiration? vs. true infection -WBC incr today to 13.9, on RA -Blood cultures ordered. -Speech evaluation ordered -C/w abx. Hypokalemia, acute likely 2/2 to poor oral intake -S/p multiple potassium replacements today -F/u AM labs Hypomagnesemia likely 2/2 to poor oral intake -Supplemented by admitting team -F/u AM labs. Possible barbiturate abuse. -patient denies but is also not the best historian. -Will hold for now -Fall precautions Dementia with Depression -Unknown if this is baseline but patient pleasantly confused at times. -C/w Donepezil, bupropion, venlafaxine/hold trazodone to avoid oversedation DLP -C/w Atorvastatin, fenofibrate Chronic HTN -C/w Propranolol DVT PROPHYLAXIS: lovenox DISPOSITION: home after more than 2 midnight's stay VS, I&O, 24H, Fishbone Vital Signs/I&O Vital Signs Date Time Temp Pulse Resp B/P (MAP) Pulse Ox O2 Delivery O2 Flow Rate FiO2 06/02/20 14:00 97.9 81 18 129/79 (96) 96 Room Air I&O- Last 24 Hours up to 6 AM 06/02/20 05:59 Intake Total 50 ml Output Total 0 ml Balance 50 ml Laboratory Data 24H LABS Laboratory Tests 2 06/02/20 05:51: Nucleated Red Blood Cells % (auto) 0.0, Anion Gap 8, Glomerular Filtration Rate > 60.0, Calcium Level 9.4 06/02/20 12:19: Anion Gap 5L, Glomerular Filtration Rate > 60.0, Calcium Level 9.8 CBC/BMP Laboratory Tests 06/02/20 00:06 06/02/20 05:51 06/02/20 12:19 Current Medications Current Medications Medications (Trade) Dose Ordered Sig/Joan Route PRN Reason Start Time Stop Time Status Last Admin Dose Admin Acetaminophen (Tylenol Tab) 650 mg Q4H PRN PO PAIN OR FEVER 06/01/20 19:45 Al Hydrox/Mg Hydrox/Simethicone (Mylanta) 30 ml DAILY PRN PO DYSPEPSIA 06/01/20 19:45 Aspirin (Ecotrin) 81 mg DAILY@2100 PO 06/01/20 22:30 06/01/20 23:08 Atorvastatin Calcium (Lipitor) 40 mg DAILY PO 06/02/20 09:00 06/02/20 08:41 Bupropion HCl (Zyban, Wellbutrin Sr) 150 mg DAILY PO 06/02/20 09:00 06/02/20 08:41 Donepezil HCl (AriCEPT) 5 mg DAILY PO 06/02/20 09:00 06/02/20 08:41 Enoxaparin Sodium (Lovenox) 40 mg DAILY@2100 SC 06/01/20 21:00 06/01/20 23:08 Fenofibrate (Tricor) 145 mg DAILY PO 06/02/20 09:00 06/02/20 08:41 Home Med (Med Rec Complete!) ASDIRECTED XX 06/01/20 19:00 06/01/20 18:51 DC Lorazepam (Ativan) 1 mg STAT STAT IV 06/01/20 16:29 06/01/20 16:30 DC 06/01/20 16:33 Magnesium Hydroxide (Milk Of Magnesia) 30 ml DAILY PRN PO CONSTIPATION 06/01/20 19:45 Omeprazole (PriLOSEC) 20 mg DAILY PO 06/02/20 09:00 06/02/20 08:41 Oxybutynin Chloride (Ditropan) 5 mg TID PO 06/02/20 09:00 06/02/20 16:37 Pregabalin (Lyrica) 200 mg BID PO 06/01/20 22:30 06/02/20 08:42 Propranolol HCl (Inderal) 40 mg DAILY PO 06/02/20 09:00 06/02/20 08:44 Venlafaxine HCl (Effexor Xr) 150 mg BID PO 06/01/20 22:30 06/02/20 08:41 Allergies Coded Allergies: morphine (Verified Adverse Reaction, Mild, restlessness, 10/02/19) Celia Steen MD Jun 02, 2020 18:59
[2020-06-02] MEDS: ASPIRIN 81 MG ENTERIC TAB PO SCH (20:01)
[2020-06-02] MEDS: ENOXAPARIN 40MG/0.4ML SYRINGE (J1650 PER 10MG) SC SCH (20:01)
[2020-06-02 22:00] VITALS: BP 117/47
[2020-06-03 06:00] VITALS: BP 127/54
[2020-06-03 06:29] LABS: HEMATOCRIT 33.5 % (36.0-47.0); HEMOGLOBIN 10.8 g/dl (12.0-15.5); MEAN CORPUSCULAR HEMOGLOBIN 31.6 pg (27.0-33.0); MEAN CORPUSCULAR HGB CONC 32.2 g/dl (32.0-36.5); PLATELET COUNT, AUTOMATED 328 10^3/uL (150-450); RED BLOOD COUNT 3.42 10^6/uL (4.00-5.40); WHITE BLOOD COUNT 9.1 10^3/uL (4.0-10.0)
[2020-06-03 07:09] LABS: ALBUMIN 2.5 GM/DL (3.2-5.2); ALT/SGPT 30 U/L (12-78); BILIRUBIN,TOTAL 0.4 MG/DL (0.2-1.0); BLOOD UREA NITROGEN 18 MG/DL (7-18); CALCIUM LEVEL 9.3 MG/DL (8.8-10.2); CARBON DIOXIDE LEVEL 29 MEQ/L (21-32); CHLORIDE LEVEL 107 MEQ/L (98-107); CREATININE FOR GFR 0.86 MG/DL (0.55-1.30); GLOMERULAR FILTRATION RATE > 60.0 (>39); GLUCOSE, FASTING 106 MG/DL (70-100); POTASSIUM SERUM 3.8 MEQ/L (3.5-5.1); SODIUM LEVEL 142 MEQ/L (136-145); TOTAL PROTEIN 6.3 GM/DL (6.4-8.2)
[2020-06-03] MEDS: VENLAFAXINE **XR** 75MG CAPSULE PO SCH ×2 (08:34→20:17)
[2020-06-03] MEDS: buPROPion **SR TABLET** (ZYBAN) 150MG PO SCH (08:34)
[2020-06-03] MEDS: DONEPEZIL 5 MG TAB PO SCH (08:34)
[2020-06-03] MEDS: PREGABALIN 100 MG CAP (LYRICA) PO SCH ×2 (08:34→20:18)
[2020-06-03] MEDS: OMEPRAZOLE 20 MG CAP PO SCH (08:34)
[2020-06-03] MEDS: FENOFIBRATE 145 MG TAB (TRICOR) PO SCH (08:34)
[2020-06-03] MEDS: ATORVASTATIN 20 MG TAB PO SCH (08:35)
[2020-06-03] MEDS: oxyBUTYnin 5 MG TAB PO SCH ×3 (08:35→20:18)
[2020-06-03 08:36] VITALS: BP 160/82
[2020-06-03] MEDS: PROPRANOLOL 20 MG TAB PO SCH (08:36)
--- NOTE | 2020-06-03 13:07 | IPNPDOC ---
Date Seen The patient was seen on 06/03/20. Progress Note SUBJECTIVE: No complaints of upper or lower extremity paresthesias or weakness. , No fever, chills, shortness of breath Patient requesting to go home. OBJECTIVE: PHYSICAL EXAM: VS: Please see below GEN: Awake, alert, oriented to person only HEENT: No JVD, thyromegaly. Moist mucous membranes . Heart: S1, S2, regular rate, rhythm LUNGS:. No conversational dyspnea clear to auscultation. Wheezing or rales ABDOMEN: Soft, nontender, nondistended, positive bowel sounds NEURO: Motor function. 5 out of 54 extremities. No sensory disturbance, speech is fluent. Tongue is midline LABORATORY DATA: Please see below MICROBIOLOGY: Please see below. IMAGING: Carotid US: Bilateral luminal narrowing of the internal carotid arteries less than 50%. No evidence of hemodynamically significant stenosis. CT head : Age related atrophy and microvascular ischemic changes. No acute intracranial hemorrhage, infarction, or mass/mass effect. Chest x-ray: Moderate right lower lobe opacity suggesting pneumonia and possible pleural reaction MRI brain 1. No acute intracranial abnormalities. There is no diffusion restriction to indicate a recent stroke. 2. Mild age-appropriate global brain atrophy. 3. 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 Problem list: Acute encephalopathy secondary to barbiturate use Transient ischemic attack Pneumonia Dementia , Depression , Hypertension , Dyslipidemia PLAN: . Await speech therapy evaluation. Patient has been cleared by physical therapy for discharge. Homecare referral. Immediate follow-up with her primary care physician and neurologist as outpatient . Continue with aspirin. MRI of the brain shows no acute CVA. VS, I&O, 24H, Fishbone Vital Signs/I&O Vital Signs Date Time Temp Pulse Resp B/P (MAP) Pulse Ox O2 Delivery O2 Flow Rate FiO2 06/03/20 08:36 95 160/82 06/03/20 06:00 98.8 18 96 Room Air I&O- Last 24 Hours up to 6 AM 06/03/20 05:59 Intake Total 1430 ml Output Total 200 ml Balance 1230 ml Laboratory Data 24H LABS Laboratory Tests 2 06/03/20 05:47: Nucleated Red Blood Cells % (auto) 0.0, Anion Gap 6L, Glomerular Filtration Rate > 60.0, Calcium Level 9.3, Total Bilirubin 0.4, Aspartate Amino Transf (AST/SGOT) 21, Alanine Aminotransferase (ALT/SGPT) 30, Alkaline Phosphatase 75, Total Protein 6.3L, Albumin 2.5#L, Albumin/Globulin Ratio 0.7L CBC/BMP Laboratory Tests 06/03/20 05:47 Microbiology Microbiology 06/02/20 Blood Culture, Received Pending 06/02/20 Blood Culture, Received Pending TARA REYNA MD Jun 03, 2020 13:06
[2020-06-03 14:00] VITALS: BP 135/64
[2020-06-03 14:12] VITALS: BP 135/64
[2020-06-03] MEDS: MOXIFLOXACIN 400 MG TAB PO SCH (14:36)
--- NOTE | 2020-06-03 14:40 | REP ---
INDICATION: cough r/o pna COMPARISON: 06/01/2020 TECHNIQUE: PA and lateral. FINDINGS: Moderate opacity in the right lung base consistent with right middle lobe consolidation. Remainder lung acosta are well aerated and clear. No definite effusion. No pneumothorax. Visualized portions of the cardiac silhouette are normal. Skeletal structures are intact. IMPRESSION: Right middle lobe consolidation unchanged compared to 06/01/2020. Follow-up to resolution recommended. <Electronically signed by Anand Henry > 06/03/20 [id number]
[2020-06-03] MEDS: ASPIRIN 81 MG ENTERIC TAB PO SCH (20:17)
[2020-06-03] MEDS: ENOXAPARIN 40MG/0.4ML SYRINGE (J1650 PER 10MG) SC SCH (20:18)
[2020-06-03 22:00] VITALS: BP 131/55
[2020-06-04] MEDS: MOXIFLOXACIN 400 MG TAB PO SCH (05:04)
[2020-06-04 06:00] VITALS: BP 125/68
[2020-06-04] MEDS: buPROPion **SR TABLET** (ZYBAN) 150MG PO SCH (08:45)
[2020-06-04] MEDS: VENLAFAXINE **XR** 75MG CAPSULE PO SCH (08:45)
[2020-06-04] MEDS: FENOFIBRATE 145 MG TAB (TRICOR) PO SCH (08:45)
[2020-06-04] MEDS: PREGABALIN 100 MG CAP (LYRICA) PO SCH (08:45)
[2020-06-04] MEDS: OMEPRAZOLE 20 MG CAP PO SCH (08:46)
[2020-06-04] MEDS: oxyBUTYnin 5 MG TAB PO SCH (08:46)
[2020-06-04] MEDS: ATORVASTATIN 20 MG TAB PO SCH (08:46)
[2020-06-04] MEDS: DONEPEZIL 5 MG TAB PO SCH (08:46)
--- NOTE | 2020-06-04 10:18 | IPNPDOC ---
Date Seen The patient was seen on 06/04/20. Progress Note SUBJECTIVE: anxious to go home, but not cleared due to cognitive issues. no c/o ue/le weakness paresthesias, dysphagia, expressive or receptive aphasia, changes in vision OBJECTIVE: PHYSICAL EXAM: VS: Please see below GEN:no distress. face is symmetric no pallor HEENT: No JVD, thyromegaly. Moist mucous membranes . Heart: S1, S2, regular rate, rhythm LUNGS:. No conversational dyspnea clear to auscultation. Wheezing or rales ABDOMEN: Soft, nontender, nondistended, positive bowel sounds NEURO: Motor function. 5 out of 54 extremities. No sensory disturbance, speech is fluent. Tongue is midline LABORATORY DATA: Please see below MICROBIOLOGY: Please see below. IMAGING: Carotid US: Bilateral luminal narrowing of the internal carotid arteries less than 50%. No evidence of hemodynamically significant stenosis. CT head : Age related atrophy and microvascular ischemic changes. No acute intracranial hemorrhage, infarction, or mass/mass effect. Chest x-ray: Moderate right lower lobe opacity suggesting pneumonia and possible pleural reaction MRI brain 1. No acute intracranial abnormalities. There is no diffusion restriction to indicate a recent stroke. 2. Mild age-appropriate global brain atrophy. 3. 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 Problem list: Acute encephalopathy secondary to barbiturate use Transient ischemic attack Pneumonia Dementia , Depression , Hypertension , Dyslipidemia PLAN: continue present meds. awaiting speech cognitive evaluation. pt will need placement. will change to alc/snf status until cleared for dc home vs facility. VS, I&O, 24H, Fishbone Vital Signs/I&O Vital Signs Date Time Temp Pulse Resp B/P (MAP) Pulse Ox O2 Delivery O2 Flow Rate FiO2 06/04/20 06:00 98.2 78 16 125/68 (87) 93 Room Air I&O- Last 24 Hours up to 6 AM 06/04/20 06:00 Intake Total 600 ml Output Total 1400 ml Balance -800 ml Laboratory Data Microbiology Microbiology 06/02/20 Blood Culture - Preliminary, Resulted No growth after 24 hours . All specim... 06/02/20 Blood Culture - Preliminary, Resulted No growth after 24 hours . All specim... TARA REYNA MD Jun 04, 2020 10:18
[2020-06-04] MEDS: PROPRANOLOL 20 MG TAB PO SCH (11:44)
== END 2020-06-04 12:39 | disposition home or self-care (01) | DRG 91 ==
LOC: M ED 14:11 → M ED INP 19:36 → ENRESERV 22:33 → M MSPAV 22:41
PROVIDERS: ADMIT Internal Medicine; ATTEND General Practice
DX: G92 Toxic encephalopathy (principal); J18.9 Pneumonia, unspecified organism; G45.9 Transient cerebral ischemic attack, unspecified; F03.90 Unspecified dementia, unspecified severity, without behavioral disturbance, psychotic disturbance, mood disturbance, and anxiety; F32.9 Major depressive disorder, single episode, unspecified; E78.5 Hyperlipidemia, unspecified; I10 Essential (primary) hypertension; E87.6 Hypokalemia; T42.3X5A Adverse effect of barbiturates, initial encounter; K21.9 Gastro-esophageal reflux disease without esophagitis; Z90.49 Acquired absence of other specified parts of digestive tract; Z79.82 Long term (current) use of aspirin; Z86.73 Personal history of transient ischemic attack (TIA), and cerebral infarction without residual deficits; Z79.899 Other long term (current) drug therapy; Z88.5 Allergy status to narcotic agent; Z20.828 Contact with and (suspected) exposure to other viral communicable diseases

== ENCOUNTER → 2020-06-12 | Outpatient (RCR) | payer MEDICARE ==
[~2020-06-12] MED LIST changes: +ASPI81TA26 PO; +NAPR250T4 PO; +cholecalciferol PO
== END | disposition home or self-care (01) ==
LOC: M ST 11:03
PROVIDERS: ATTEND Internal Medicine Gastroenterology
DX: R13.10 Dysphagia, unspecified (principal)

== ENCOUNTER → 2020-06-18 | Outpatient (CLI) | payer MEDICARE ==
[~2020-06-18] MED LIST changes: +B-12100011 SL; +MEDREC COMMENT
--- NOTE | 2020-06-18 10:35 | REP ---
INDICATION: R93.89, ABNORMAL CHEST XRAY; RML DENSITY ON PRIOR CXR COMPARISON: 06/03/2020 TECHNIQUE: PA and lateral. FINDINGS: The mediastinum and cardiac silhouette are normal. Continued opacity in the right middle lobe is only minimally improved. Remainder of lung acosta are clear. No effusion. No pneumothorax. IMPRESSION: Continued right middle lobe opacity minimally improved. Consider chest CT with contrast follow-up to evaluate for the possibility of more significant underlying pathology. <Electronically signed by Anand Henry > 06/18/20 [id number]
== END ==
LOC: M CLY 10:14
PROVIDERS: ATTEND Family Medicine
DX: R91.8 Other nonspecific abnormal finding of lung field (principal); R93.89 Abnormal findings on diagnostic imaging of other specified body structures

== ENCOUNTER 2020-06-21 15:55 | Inpatient (IN) | payer MEDICARE ==
[~2020-06-21] VITALS: Ht 157.5 cm; Wt 45.0 kg
[~2020-06-21 15:55] MED LIST changes: -B-12100011 SL; -MEDREC COMMENT
--- NOTE | 2020-06-21 16:13 | REP ---
INDICATION: R/O CVVA COMPARISON: 06/01/2020 TECHNIQUE: Axial noncontrast images from the skull base to the thoracic inlet with coronal reformations. This CT examination was performed using the following dose reduction techniques: Automated exposure control, adjustment of mA and/or kv according to the patient's size, and use of iterative reconstruction technique. FINDINGS: Age-related atrophy with periventricular leukomalacia and microvascular ischemic changes are appreciated. The ventricles and sulci are symmetric. Hammond-white differentiation is maintained. There is no evidence for acute intracranial hemorrhage, mass/mass effect, pathology or infarction. No extra-axial fluid collection. Calvarium is intact. Paranasal sinuses and mastoid air cells are clear. IMPRESSION: Atrophy with periventricular leukomalacia and microvascular ischemic changes. No acute intracranial hemorrhage, infarction, or mass/mass effect. <Electronically signed by Anand Henry > 06/21/20 [id number]
[2020-06-21] MEDS: NS 1,000 ML IV SCH ×2 (16:53→22:43)
[2020-06-21 17:07] LABS: BASO % 0.2 % (0.0-1.0); EOS % 0.1 % (0.0-3.0); HEMATOCRIT 38.5 % (36.0-47.0); HEMOGLOBIN 12.5 g/dl (12.0-15.5); LYMPH # 1.5 10^3/uL (1.5-5.0); LYMPH % 10.2 % (24.0-44.0); MEAN CORPUSCULAR HEMOGLOBIN 31.8 pg (27.0-33.0); MEAN CORPUSCULAR HGB CONC 32.5 g/dl (32.0-36.5); MONO # 1.5 10^3/uL (0.0-0.8); MONO % 10.3 % (0.0-5.0); NEUTROPHILS # 11.6 10^3/uL (1.5-8.5); NEUTROPHILS % 78.8 % (36.0-66.0); PLATELET COUNT, AUTOMATED 319 10^3/uL (150-450); RED BLOOD COUNT 3.93 10^6/uL (4.00-5.40); WHITE BLOOD COUNT 14.8 10^3/uL (4.0-10.0)
--- NOTE | 2020-06-21 17:11 | REP ---
INDICATION: Altered Mental Status COMPARISON: 06/18/2020 TECHNIQUE: Portable AP view of the chest FINDINGS: Opacity in the right base again identified, unchanged and is consistent with right middle lobe infiltrate. The remainder of lung acosta are clear. Cardiac silhouette is normal. Skeletal structures are intact. IMPRESSION: Right middle lobe opacity essentially unchanged compared to prior examination <Electronically signed by Anand Henry > 06/21/20 [id number]
[2020-06-21 17:22] LABS: ACETAMINOPHEN LEVEL < 2.0 UG/ML (10.0-30.0); ALBUMIN 3.5 GM/DL (3.2-5.2); ALT/SGPT 23 U/L (12-78); BILIRUBIN,DIRECT 0.2 MG/DL (0.0-0.2); BILIRUBIN,TOTAL 0.5 MG/DL (0.2-1.0); BLOOD UREA NITROGEN 15 MG/DL (7-18); CALCIUM LEVEL 8.9 MG/DL (8.8-10.2); CARBON DIOXIDE LEVEL 30 MEQ/L (21-32); CHLORIDE LEVEL 98 MEQ/L (98-107); CK-MB VALUE MASS < 1.0 NG/ML (<3.6); CPK CREATINE PHOSPHOKINASE 46 U/L (26-192); CREATININE FOR GFR 0.54 MG/DL (0.55-1.30); ETHYL ALCOHOL (ETHANOL) < 0.003 % (0.000-0.010); GLOMERULAR FILTRATION RATE > 60.0 (>39); GLUCOSE, FASTING 82 MG/DL (70-100); MB/CK RELATIVE INDEX 2.17 (< OR =4); POTASSIUM SERUM 3.1 MEQ/L (3.5-5.1); SALICYLATE LEVEL 2.5 MG/DL (5.0-30.0); SODIUM LEVEL 136 MEQ/L (136-145); TOTAL PROTEIN 6.8 GM/DL (6.4-8.2); TROPONIN I < 0.02 NG/ML (< 0.10)
[2020-06-21] MEDS ORDERED: ACETAMINOPHEN TAB 650MG DOSE (2X325MG) PO PRN (18:15)
--- NOTE | 2020-06-21 18:36 | HPEPDOC ---
General Date of Admission Jun 21, 2020 at 18:12 Date of Service: Jun 21, 2020 Chief Complaint The patient is a 74-year-old female admitted with a reason for visit of Ams Metabolic Encephlopathy. Source: Patient Exam Limitations: Mild cognitive slowing Timing/Duration: 24 hours Severity: Mild History of Present Illness Patient is 74 years old female with past medical history of CVA in 2019, hyperlipidemia, depression, insomnia, hypertension presented to the hospital with increased confusion which started in the morning. According to the son patient developed increased forgetfulness in the morning specifically short- term. Patient did not remember how many cats she has, what day today. Of note, patient was recently admitted with similar symptoms in May 2020, workup was negative for stroke. MRI showed 1. No acute intracranial abnormalities. There is no diffusion restriction to indicate a recent stroke. 2. Mild age-appropriate global brain atrophy. 3. Mild/moderate microvascular ischemic changes.Carotid US: Bilateral luminal narrowing of the internal carotid arteries less than 50%. No evidence of hemodynamically significant stenosis In ER patient was found to have negative CT head, labs showed elevated white blood count of 14.8., Patient afebrile. Home Medications Scheduled Aspirin (Aspirin EC) 81 Mg Tablet.dr, 81 MG PO DAILY, (Reported) Atorvastatin Calcium (Atorvastatin Calcium) 40 Mg Tablet, 40 MG PO DAILY, (Reported) Bupropion HCl (Bupropion HCl Sr) 150 Mg Tab.er.12h, 150 MG PO DAILY, (Reported) Donepezil HCl (Donepezil HCl) 5 Mg Tablet, 5 MG PO DAILY, (Reported) Fenofibrate (Fenofibrate) 160 Mg Tablet, 160 MG PO DAILY, (Reported) Omeprazole (Omeprazole) 20 Mg Capsule.dr, 20 MG PO DAILY, (Reported) Oxybutynin Chloride (Oxybutynin Chloride) 5 Mg Tablet, 5 MG PO TID, (Reported) Pregabalin (Pregabalin) 200 Mg Capsule, 200 MG PO BID, (Reported) Propranolol HCl (Propranolol HCl) 40 Mg Tablet, 40 MG PO DAILY, (Reported) Trazodone HCl (Trazodone HCl) 100 Mg Tablet, 100 MG PO QHS, (Reported) Venlafaxine HCl (Venlafaxine HCl ER) 150 Mg Cap.er.24h, 150 MG PO BID, (Reported) Allergies Coded Allergies: morphine (Verified Adverse Reaction, Mild, restlessness, 10/02/19) Past Medical History Medical History Dementia Depression TIA DLP Chronic HTN GERD Cholelithiasis OVERACTIVE BLADDER INSOMNIA Surgical History Tonsillectomy Partial colectomy with ostomy with subsequent reversal 2 to manage perforated diverticulitis CERVICAL SPINE FUSION GALLSTONES REMOVED ENDOSCOPIES ERCP WITH STENT PLACEMENT 09/2019 STENT REMOVED Family History Cancer and heart disease Social History * Smoker: Denies Alcohol: Denies Drugs: denies A-FIB/CHADSVASC A-FIB History Current/History of A-Fib/PAF?: No Current PO Anticoag Therapy: No Review of Systems Constitutional: Denies: Chills, Fever Eyes: Denies: Pain ENT: Denies: Head Aches Skin: Denies: Rash, Lesions Pulmonary: Denies: Dyspnea, Cough Cardiovascular: Denies: Chest Pain Gastrointestinal: Denies: Nausea, Vomiting Genitourinary: Denies: Dysuria, Frequency Hematologic: Denies: Bruising Musculoskeletal: Denies: Neck Pain Neurological: Denies: Weakness Psych: Reports: Memory Issues Physical Examination General Exam: Positive: Alert, Cooperative Eye Exam: Positive: PERRLA ENT Exam: Positive: Atraumatic Neck Exam: Positive: Supple; Negative: JVD Chest Exam: Positive: Clear to auscultation Heart Exam: Positive: Rate Normal Telemetry: Positive: No significant arrhythmia Abdomen Exam: Positive: Normal bowel sounds Extremity Exam: Negative: Clubbing Skin Exam: Positive: Nl turgor and temperature Neuro Exam: Positive: Strength at 5/5 X4 ext, Cranial Nerves 3-12 NL Psych Exam: Positive: Oriented x 3 (oriented in place , not in time); Negative: Memory Intact Vital Signs Vital Signs Date Time Temp Pulse Resp B/P (MAP) Pulse Ox O2 Delivery O2 Flow Rate FiO2 06/21/20 16:47 06/21/20 15:55 97.8 102 18 100 Room Air Laboratory Data Labs 24H Laboratory Tests 2 06/21/20 16:38: Immature Granulocyte % (Auto) 0.4, Neutrophils (%) (Auto) 78.8H, Lymphocytes (%) (Auto) 10.2L, Monocytes (%) (Auto) 10.3H, Eosinophils (%) (Auto) 0.1, Basophils (%) (Auto) 0.2, Neutrophils # (Auto) 11.6H, Lymphocytes # (Auto) 1.5, Monocytes # (Auto) 1.5H, Eosinophils # (Auto) 0.0, Basophils # (Auto) 0.0, Nucleated Red Blood Cells % (auto) 0.0, Anion Gap 8, Glomerular Filtration Rate > 60.0, Calcium Level 8.9, Total Bilirubin 0.5, Direct Bilirubin 0.2, Aspartate Amino Transf (AST/SGOT) 12, Alanine Aminotransferase (ALT/SGPT) 23, Alkaline Phosphatase 83, Total Creatine Kinase 46, Creatine Kinase MB < 1.0, Creatine Kinase MB Relative Index 2.17, Troponin I < 0.02, Total Protein 6.8, Albumin 3.5, Albumin/Globulin Ratio 1.1L, Thyroid Stimulating Hormone (TSH) 2.020, Salicylates Level 2.5L, Acetaminophen Level < 2.0L, Ethyl Alcohol Level < 0.003 06/21/20 16:40: Lactic Acid Level 1.1 CBC/BMP Laboratory Tests 06/21/20 16:38 Assessment/Plan Patient is 74 years old female with past medical history of CVA in 2019, hyperlipidemia, depression, insomnia, hypertension presented to the hospital with increased confusion which started in the morning. According to the son patient developed increased forgetfulness in the morning specifically short- term. Patient did not remember how many cats she has, what day today. Of note, patient was recently admitted with similar symptoms in May 2020, workup was negative for stroke. MRI showed 1. No acute intracranial abnormalities. There is no diffusion restriction to indicate a recent stroke. 2. Mild age-appropriate global brain atrophy. 3. Mild/moderate microvascular ischemic changes. In ER patient was found to have negative CT head, labs showed elevated white blood count of 14.8., Patient afebrile. Problems (1) Metabolic encephalopathy Status: Acute Problem Text: Differential diagnosis includes TIA, stroke, progression of dementia or polypharmacy Will proceed with MRI and MRA Continue statin and aspirin Gabapentin on hold (2) Hypertension Status: Acute Problem Text: Continue home cardioprotective medication Blood pressures under control (3) Hyperlipidemia Status: Chronic Problem Text: Continue statin (4) Leukocytosis Status: Chronic Problem Text: Patient does not have fever, chills, diarrhea or dysuria I will not give antibiotics Continue to monitor Plan / VTE VTE Prophylaxis Ordered?: Yes JN ESQUIVEL DO Jun 21, 2020 18:35
[2020-06-21 19:35] LABS: RSV AMPLIFICATION NEGATIVE (NEGATIVE)
[2020-06-21] MEDS ORDERED: PRIM50TA6 PO (19:37)
[2020-06-21] MEDS ORDERED: B-12100011 SL (19:37)
[2020-06-21] MEDS ORDERED: MEDREC COMMENT (19:39)
[2020-06-21] MEDS ORDERED: LORazepam 2 MG/ML VIAL IV PRN (20:15)
[2020-06-21] MEDS ORDERED: LORazepam 2 MG/ML VIAL As Ordered ONE (20:45)
--- NOTE | 2020-06-21 22:20 | REPVR ---
PROCEDURE INFORMATION: Exam: MR Head Without Contrast Exam date and time: 06/21/2020 9:49 PM Age: 74 years old Clinical indication: Altered mental status/memory loss and other: Recent headache; Other: Confusion and memory loss; Patient HX: DEVI muir states feels his mother a month ago had a stroke and recently she was appearing to have simular symptoms with increase confusion (repeating a lot), and recently had a headache TECHNIQUE: Imaging protocol: MR of the head without contrast. COMPARISON: MRI-Brain without Contrast 06/01/2020 4:48 PM FINDINGS: Examination is motion limited. Moderate to severe volume loss. Major vascular flow voids at the skull base are preserved. No extra-axial fluid collection. No midline shift or significant intracranial mass effect. Nonspecific white matter gliosis, probable chronic microvascular ischemia. No diffusion restriction. Minimal paranasal sinus disease. No significant mastoid effusion. IMPRESSION: Patient motion without definite acute intracranial abnormality. Electronically signed by: Balbir Benavides On 06/21/2020 22:20:55 PM
--- NOTE | 2020-06-21 22:22 | REPVR ---
PROCEDURE INFORMATION: Exam: MR Angiogram Head Without Contrast, Arteries Exam date and time: 06/21/2020 9:49 PM Age: 74 years old Clinical indication: Headache and other: Confusion and memory loss; Patient HX: PT sons states feels his mother a month ago had a stroke and recently she was appearing to have simular symptoms with increase confusion (repeating a lot), and recently had a headache TECHNIQUE: Imaging protocol: MR angiogram head without contrast. Exam focused on the arteries. 3D rendering (Not supervised by radiologist): MIP and/or 3D reconstructed images were created by the technologist. COMPARISON: MRI-Brain without Contrast 06/01/2020 4:48 PM FINDINGS: Limitations: Patient motion. ANTERIOR CIRCULATION: Right internal carotid artery: Intracranial segment is patent with no significant stenosis. No aneurysm. Right middle cerebral artery: No occlusion or significant stenosis. No aneurysm. Right anterior cerebral artery: No occlusion or significant stenosis. No aneurysm. Left internal carotid artery: Intracranial segment is patent with no significant stenosis. No aneurysm. Left middle cerebral artery: No occlusion or significant stenosis. No aneurysm. Left anterior cerebral artery: No occlusion or significant stenosis. No aneurysm. POSTERIOR CIRCULATION: Right vertebral artery: No occlusion or significant stenosis. No aneurysm. Left vertebral artery: Left vertebral artery is dominant. Basilar artery: No occlusion or significant stenosis. No aneurysm. Right posterior cerebral artery: No occlusion or significant stenosis. No aneurysm. Left posterior cerebral artery: Carotid dominant left posterior cerebral artery with hypoplastic left P1 segment. IMPRESSION: Patient motion without definite hemodynamically significant stenosis or large vessel occlusion. Electronically signed by: Balbir Benavides On 06/21/2020 22:22:59 PM
[2020-06-21] MEDS: ENOXAPARIN 40MG/0.4ML SYRINGE (J1650 PER 10MG) SC SCH (22:46)
[2020-06-21 22:50] VITALS: BP 151/75
[2020-06-22] MEDS: HALOPERIDOL 5MG/ML VIAL (J1630 PER 1) IM PRN ×3 (01:30→20:40)
[2020-06-22] MEDS ORDERED: HALOPERIDOL 5MG/ML VIAL (J1630 PER 1) IM ONE (02:00)
[2020-06-22 06:00] VITALS: BP 153/68
[2020-06-22 06:17] LABS: HEMATOCRIT 36.6 % (36.0-47.0); HEMOGLOBIN 11.4 g/dl (12.0-15.5); MEAN CORPUSCULAR HEMOGLOBIN 31.6 pg (27.0-33.0); MEAN CORPUSCULAR HGB CONC 31.1 g/dl (32.0-36.5); MEAN CORPUSCULAR VOLUME 101.4 fl (80.0-96.0); PLATELET COUNT, AUTOMATED 277 10^3/uL (150-450); RED BLOOD COUNT 3.61 10^6/uL (4.00-5.40); WHITE BLOOD COUNT 11.8 10^3/uL (4.0-10.0)
[2020-06-22 06:50] LABS: ALBUMIN 2.9 GM/DL (3.2-5.2); ALT/SGPT 20 U/L (12-78); BILIRUBIN,TOTAL 0.6 MG/DL (0.2-1.0); BLOOD UREA NITROGEN 10 MG/DL (7-18); CALCIUM LEVEL 8.8 MG/DL (8.8-10.2); CARBON DIOXIDE LEVEL 26 MEQ/L (21-32); CHLORIDE LEVEL 101 MEQ/L (98-107); GLOMERULAR FILTRATION RATE > 60.0 (>39); GLUCOSE, FASTING 73 MG/DL (70-100); MAGNESIUM LEVEL 1.6 MG/DL (1.8-2.4); POTASSIUM SERUM 3.2 MEQ/L (3.5-5.1); SODIUM LEVEL 136 MEQ/L (136-145); TOTAL PROTEIN 6.8 GM/DL (6.4-8.2)
[2020-06-22 07:44] LABS: APPEARANCE, URINE CLEAR (CLEAR); BACTERIA, URINE AUTO NEGATIVE (NEGATIVE); BILIRUBIN, URINE AUTO NEGATIVE (NEGATIVE); BLOOD, URINE BLOOD 1+ (NEGATIVE); COLOR, URINE YELLOW (YELLOW); GLUCOSE, URINE (UA) AUTO NEGATIVE (NEGATIVE); KETONE, URINE AUTO TRACE mg/dL (NEGATIVE); LEUKOCYTE ESTERASE, URINE AUTO NEGATIVE (NEGATIVE); MUCUS, URINE SMALL (NEGATIVE); NITRITE, URINE AUTO NEGATIVE (NEGATIVE); PROTEIN, URINE AUTO NEGATIVE (NEGATIVE); RBC, URINE AUTO 1 /HPF (0-3); SPECIFIC GRAVITY URINE AUTO 1.006 (1.002-1.035); SQUAMOUS EPITHELIAL CELL UR AU 2 /HPF (0-6); UROBILINOGEN, URINE AUTO 0.2 mg/dL (0.0-2.0); WBC, URINE AUTO 4 /HPF (0-3)
[2020-06-22 14:00] VITALS: BP 133/75
--- NOTE | 2020-06-22 15:39 | IPNPDOC ---
Text Note Date of Service The patient was seen on 06/22/20. NOTE Subjective: No any acute events overnight. Pt continues to have forgetfulness patient oriented to place but not in time Objective: GENERAL APPEARANCE: NAD HEENT: no scleral icterus, no JVD, EOMI CARDIOVASCULAR: S1S2 LUNGS: CTA ABDOMEN: soft & not tender w palpitation MUSCULOSKELETAL: no cyanosis, no swelling INTEGUMENT: no generalized palor NEUROLOGICAL: cranial nerve function from 2-12 intact intact, follows commands, speech not dysarthric Assessment/Plan Patient is 74 years old female with past medical history of CVA in 2019, hyperlipidemia, depression, insomnia, hypertension presented to the hospital with increased confusion which started in the morning. According to the son patient developed increased forgetfulness in the morning specifically short- term. Patient did not remember how many cats she has, what day today. Of note, patient was recently admitted with similar symptoms in May 2020, workup was negative for stroke. MRI showed 1. No acute intracranial abnormalities. There is no diffusion restriction to indicate a recent stroke. 2. Mild age-appropriate global brain atrophy. 3. Mild/moderate microvascular ischemic changes. In ER patient was found to have negative CT head, labs showed elevated white blood count of 14.8. Patient afebrile. Problems (1) Metabolic encephalopathy/forgetfulness Improved Most likely secondary to progression of dementia MRI and MRA negative for stroke Continue statin and aspirin Gabapentin on hold Patient will need 24/ 7 home care (2) Hypertension Continue home cardioprotective medication Blood pressures under control (3) Hyperlipidemia Continue statin (4) Leukocytosis Improved Patient does not have fever, chills, diarrhea or dysuria I will not give antibiotics Continue to monitor VS,Rubioe, I+O VS, Fishbone, I+O Laboratory Tests 06/21/20 16:38 06/22/20 05:53 Vital Signs Date Time Temp Pulse Resp B/P (MAP) Pulse Ox O2 Delivery O2 Flow Rate FiO2 06/22/20 14:00 98.3 81 21 133/75 (94) 98 Room Air I&O- Last 24 Hours up to 6 AM 06/22/20 06:00 Intake Total 1020 ml Output Total 175 ml Balance 845 ml JN ESQUIVEL DO Jun 22, 2020 15:39
[2020-06-22] MEDS: oxyBUTYnin 5 MG TAB PO SCH ×2 (17:30→20:41)
[2020-06-22] MEDS: VENLAFAXINE **XR** 75MG CAPSULE PO SCH (20:41)
[2020-06-22] MEDS: ENOXAPARIN 40MG/0.4ML SYRINGE (J1650 PER 10MG) SC SCH (20:41)
[2020-06-22] MEDS: PROPRANOLOL 20 MG TAB PO SCH (20:45)
[2020-06-22 22:00] VITALS: BP 143/93
[2020-06-23 06:00] VITALS: BP 148/62
[2020-06-23 06:25] LABS: HEMATOCRIT 37.2 % (36.0-47.0); HEMOGLOBIN 12.2 g/dl (12.0-15.5); MEAN CORPUSCULAR HEMOGLOBIN 32.7 pg (27.0-33.0); MEAN CORPUSCULAR HGB CONC 32.8 g/dl (32.0-36.5); MEAN CORPUSCULAR VOLUME 99.7 fl (80.0-96.0); PLATELET COUNT, AUTOMATED 320 10^3/uL (150-450); RED BLOOD COUNT 3.73 10^6/uL (4.00-5.40); WHITE BLOOD COUNT 7.1 10^3/uL (4.0-10.0)
[2020-06-23 06:46] LABS: BLOOD UREA NITROGEN 6 MG/DL (7-18); CARBON DIOXIDE LEVEL 31 MEQ/L (21-32); CHLORIDE LEVEL 102 MEQ/L (98-107); CREATININE FOR GFR 0.54 MG/DL (0.55-1.30); GLOMERULAR FILTRATION RATE > 60.0 (>39); GLUCOSE, FASTING 89 MG/DL (70-100); MAGNESIUM LEVEL 1.8 MG/DL (1.8-2.4); POTASSIUM SERUM 3.4 MEQ/L (3.5-5.1); SODIUM LEVEL 141 MEQ/L (136-145)
[2020-06-23] MEDS ORDERED: POTASSIUM CHLORIDE 10 MEQ SR TABLET PO ONE (08:30)
[2020-06-23] MEDS: oxyBUTYnin 5 MG TAB PO SCH ×3 (09:54→20:23)
[2020-06-23] MEDS: VENLAFAXINE **XR** 75MG CAPSULE PO SCH ×2 (09:54→20:23)
[2020-06-23] MEDS: buPROPion **SR TABLET** (ZYBAN) 150MG PO SCH (09:54)
[2020-06-23] MEDS: ASPIRIN 81 MG ENTERIC TAB PO SCH (09:54)
[2020-06-23] MEDS: OMEPRAZOLE 20 MG CAP PO SCH (09:54)
[2020-06-23] MEDS: ATORVASTATIN 20 MG TAB PO SCH (09:55)
[2020-06-23] MEDS: PROPRANOLOL 20 MG TAB PO SCH ×3 (09:55→20:26)
[2020-06-23 14:00] VITALS: BP 128/66
[2020-06-23] MEDS: ENOXAPARIN 40MG/0.4ML SYRINGE (J1650 PER 10MG) SC SCH (20:23)
[2020-06-24 06:00] VITALS: BP 144/74
[2020-06-24 07:39] LABS: HEMATOCRIT 42.8 % (36.0-47.0); HEMOGLOBIN 13.3 g/dl (12.0-15.5); MEAN CORPUSCULAR HEMOGLOBIN 32.5 pg (27.0-33.0); MEAN CORPUSCULAR HGB CONC 31.1 g/dl (32.0-36.5); MEAN CORPUSCULAR VOLUME 104.6 fl (80.0-96.0); PLATELET COUNT, AUTOMATED 375 10^3/uL (150-450); RED BLOOD COUNT 4.09 10^6/uL (4.00-5.40)
--- NOTE | 2020-06-24 07:54 | ECGEPIP ---
[facility] - ED Test Date: 2020-06-21 Pat Name: TAY SOSA Department: Room: [place] [address] Gender: Female Supervisor Finishing Department: TAI : 1945 Requested By: MICKEY CERVANTES Order Number: [id number] Reading MD: Beth Ny Measurements Intervals [place] Rate: 101 P: 53 [place]: 150 QRS: -8 QRSD: 142 T: 142 QT: 401 QTc: 522 Interpretive Statements SINUS TACHYCARDIA POSSIBLE LEFT ATRIAL ENLARGEMENT LEFT BUNDLE BRANCH BLOCK Electronically Signed on 06-24-2020 7:54:33 EST by Beth Ny
[2020-06-24 08:47] LABS: BLOOD UREA NITROGEN 11 MG/DL (7-18); CARBON DIOXIDE LEVEL 23 MEQ/L (21-32); CHLORIDE LEVEL 103 MEQ/L (98-107); CREATININE FOR GFR 0.72 MG/DL (0.55-1.30); GLOMERULAR FILTRATION RATE > 60.0 (>39); GLUCOSE, FASTING 102 MG/DL (70-100); MAGNESIUM LEVEL 1.7 MG/DL (1.8-2.4); POTASSIUM SERUM 3.9 MEQ/L (3.5-5.1); SODIUM LEVEL 135 MEQ/L (136-145)
[2020-06-24] MEDS: OMEPRAZOLE 20 MG CAP PO SCH (11:23)
[2020-06-24] MEDS: VENLAFAXINE **XR** 75MG CAPSULE PO SCH (11:23)
[2020-06-24] MEDS: oxyBUTYnin 5 MG TAB PO SCH (11:24)
[2020-06-24] MEDS: buPROPion **SR TABLET** (ZYBAN) 150MG PO SCH (11:24)
[2020-06-24] MEDS: ATORVASTATIN 20 MG TAB PO SCH (11:24)
[2020-06-24 11:25] VITALS: BP 125/68
[2020-06-24] MEDS: PROPRANOLOL 20 MG TAB PO SCH (11:25)
[2020-06-24] MEDS: ASPIRIN 81 MG ENTERIC TAB PO SCH (11:26)
--- NOTE | 2020-06-25 16:47 | DS.PDOC ---
Discharge Summary General Date of Admission Jun 21, 2020 at 18:12 Date of Discharge 06/24/20 Discharge Summary PROCEDURES PERFORMED DURING STAY: [None]. ADMITTING DIAGNOSES: Metabolic encephalopathy/forgetfulness Hypertension Hyperlipidemia Leukocytosis DISCHARGE DIAGNOSES: Metabolic encephalopathy/forgetfulness Hypertension Hyperlipidemia Leukocytosis COMPLICATIONS/CHIEF COMPLAINT: Ams Metabolic Encephlopathy. HISTORY OF PRESENT ILLNESS: Patient is 74 years old female with past medical history of CVA in 2019, hyperlipidemia, depression, insomnia, hypertension presented to the hospital with increased confusion which started in the morning. According to the son patient developed increased forgetfulness in the morning specifically short-term. Patient did not remember how many cats she has, what day today. Of note, patient was recently admitted with similar symptoms in May 2020, workup was negative for stroke. MRI showed 1. No acute intracranial abnormalities. There is no diffusion restriction to indicate a recent stroke. 2. Mild age-appropriate global brain atrophy. 3. Mild/moderate microvascular ischemic changes. In ER patient was found to have negative CT head, labs showed elevated white blood count of 14.8. Patient afebrile. HOSPITAL COURSE: During hospital stay following issue addressed Problems (1) Metabolic encephalopathy/forgetfulness Improved Most likely secondary to progression of dementia MRI and MRA negative for stroke Continue statin and aspirin Patient will need 24/ 7 home care (2) Hypertension Continue home cardioprotective medication Blood pressures under control (3) Hyperlipidemia Continue statin (4) Leukocytosis Improved Patient does not have fever, chills, diarrhea or dysuria I will not give antibiotics Continue to monitor DISCHARGE MEDICATIONS: Please see below. ALLERGIES: Please see below. PHYSICAL EXAMINATION ON DISCHARGE: VITAL SIGNS: Please see below. GENERAL APPEARANCE: NAD HEENT: no scleral icterus, no JVD, EOMI CARDIOVASCULAR: S1S2 LUNGS: CTA ABDOMEN: soft & not tender w palpitation MUSCULOSKELETAL: no cyanosis, no swelling INTEGUMENT: no generalized palor NEUROLOGICAL: cranial nerve function from 2-12 intact intact, follows commands, speech not dysarthric LABORATORY DATA: Please see below. IMAGING: See above PROGNOSIS: Fair ACTIVITY: [As tolerated]. DIET: Cardiac DISPOSITION: Home Health Service. ITEMS TO FOLLOWUP ON ON OUTPATIENT: Follow-up with neurologist and PCP DISCHARGE CONDITION: [Stable]. TIME SPENT ON DISCHARGE: Greater than 40 minutes. Vital Signs/I&Os Vital Signs Date Time Temp Pulse Resp B/P (MAP) Pulse Ox O2 Delivery O2 Flow Rate FiO2 06/24/20 11:25 125/68 06/24/20 06:00 98.6 78 18 96 06/23/20 14:00 Room Air I&O- Last 24 Hours up to 6 AM 06/25/20 06:00 Intake Total 120 ml Balance 120 ml Discharge Medications Scheduled Aspirin (Aspirin EC) 81 Mg Tablet.dr, 81 MG PO DAILY, (Reported) Atorvastatin Calcium (Atorvastatin Calcium) 40 Mg Tablet, 40 MG PO DAILY, (Reported) Cyanocobalamin (Vitamin B-12) (Vitamin B-12) 1,000 Mcg Tab.subl, 1,000 MCG SL DAILY, (Reported) Donepezil HCl (Donepezil HCl) 5 Mg Tablet, 5 MG PO DAILY, (Reported) Fenofibrate (Fenofibrate) 160 Mg Tablet, 160 MG PO DAILY, (Reported) Omeprazole (Omeprazole) 20 Mg Capsule.dr, 20 MG PO DAILY, (Reported) Primidone (Primidone) 50 Mg Tablet, 25 MG PO BID, (Reported) Propranolol HCl (Propranolol HCl) 40 Mg Tablet, 40 MG PO TID, (Reported) Venlafaxine HCl (Venlafaxine HCl ER) 150 Mg Cap.er.24h, 150 MG PO BID, (Reported) Miscellaneous Medications [Medrec Comment] , (Reported) UNABLE TO VERIFY MEDS.USED EXTERNAL AND LAST OFFICE VISIT Allergies Coded Allergies: morphine (Verified Adverse Reaction, Mild, restlessness, 10/02/19) JN ESQUIVEL DO Jun 25, 2020 16:47
== END 2020-06-24 12:40 | disposition home health service (06) | DRG 884 ==
LOC: M ED 15:55 → M ED INP 18:12 → M MSPAV 22:30
PROVIDERS: ADMIT Internal Medicine; ATTEND Internal Medicine
DX: F03.90 Unspecified dementia, unspecified severity, without behavioral disturbance, psychotic disturbance, mood disturbance, and anxiety (principal); F32.9 Major depressive disorder, single episode, unspecified; Z86.73 Personal history of transient ischemic attack (TIA), and cerebral infarction without residual deficits; E78.5 Hyperlipidemia, unspecified; I10 Essential (primary) hypertension; K21.9 Gastro-esophageal reflux disease without esophagitis; N32.81 Overactive bladder; G47.00 Insomnia, unspecified; Z90.49 Acquired absence of other specified parts of digestive tract; Z98.1 Arthrodesis status; D72.829 Elevated white blood cell count, unspecified; Z79.82 Long term (current) use of aspirin; Z79.899 Other long term (current) drug therapy; Z88.5 Allergy status to narcotic agent; Z20.822 Contact with and (suspected) exposure to COVID-19

== ENCOUNTER 2020-06-29 18:00 | Emergency (ER) | payer MEDICARE ==
[~2020-06-29] VITALS: Ht 157.5 cm; Wt 50.0 kg
[~2020-06-29 18:00] MED LIST changes: +B-12100011 SL; +MEDREC COMMENT
--- OUTSIDE RECORDS SUMMARY | 2020-06-29 18:08 | CCD ---
Author Author [facility] Organization [facility] Address Unknown Phone Unavailable Care Team Providers Care Casino Enforcement Agent Name Role Phone Laurel Barnes Unavailable PROBLEMS Type Condition ICD9-CM Code [id number] Code Onset Dates Condition S tatus SNOMED Code Notes Problem Depression, unspecified depression type F32.9 Active 76012358 Problem Gastroesophageal reflux disease, esophagitis pre sence not specified K21.9 Active 294523652 Problem Dyslipidemia E78.5 Active 720826417 Problem Abnormal chest xray R93.89 Active 304350783 Problem Cerebrovascular accident (CVA), unspecified mechanism I63.9 Active 906436804 Problem TIA (transient ischemic attack) G45.9 Active 814051766 Problem Decreased appetite R63.0 Active 18676121 Problem Vitamin D deficiency E55.9 Active 98635992 Problem Other chronic pain G89.29 Active 37170567 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 20327830 ALLERGIES Allergen (clinical drug ingredient) Drug/Non Drug Allergy do cumented on EMR Reaction Allergy Type Onset Date Status morphine headache, restless Non Drug Allergy Active ENCOUNTERS from 1945 to 2020-06-18 Encounter Location Date Provider Diagnosis [facility] [address] [place] [address] Jun Laurel Barnes IMMUNIZATIONS Vaccine Route Administration Date Status Influenza (18 yrs & older) Flublok IM Intramuscular Mar 21, 2020 Administered SOCIAL HISTORY Tobacco Use: Social History Observation Description Date Details (start date - stop date) Never Smoker Sex Assigned At : Social History Observation Description Sex Assigned At Unknown Audit Question Answer Notes Total Score: 0 Interpretation: Alcohol Education Language: Question Answer Notes Languages spoken: Greek Adventism: Question Answer Notes Adventism No cheondoism beliefs that would impact health care. Drug and Alcohol Question Answer Notes Total Score: 0 Interpretation: No problems reported Alcohol Screening: Question Answer Notes Did you have a drink containing alcohol in the past year? No Points 0 Interpretation Negative Tobacco Use: Question Answer Notes Are you a: never smoker REASON FOR REFERRAL No Information VITAL SIGNS No information MEDICATIONS Medication SIG (Take, Route, Frequency, Duration) Notes Start Da te End Date Status Walker - as directed 4 WHEELED WALKER WITH SEAT I63.9, U NSTEADY GAIT October, Active Vitamin B12 1000 MCG 1 tablet Orally Once a day Active Aspirin EC Low Dose 81 MG 1 tablet Orally Once a day Active Pregabalin 200 MG 1 cap Orally bid A ctive TraZODone HCl 100 MG 1 tablet at bedtime Orally Once a day Active Donepezil HCl 5 MG TAKE 1 TABLET BY MOUTH EVERY DAY Active Fenofibrate 160 MG 1 tab Orally Daily Active Atorvastatin Calcium 40 MG 1 tablet Orally Once a day Active Omeprazole 20 MG 1 capsule 30 minutes before morning meal Orally Once a day for 90 Active Oxybutynin Chloride 5 MG 1 tab Orally tid Active Primidone 50 MG as directed Orally tid Active Propranolol HCl 40 MG 1 tablet Orally Once a day Active Cholecalciferol 25 MCG (1000 UT) 2 Orally Once a day Active BuPROPion HCl ER (Smoking Det) 150 MG 1 tablet in the mornin g Orally Once a day Active Venlafaxine HCl ER 150 MG 1 capsule with food Orally bid 2 Sep, Active PROCEDURES No Information RESULTS No Results REASON FOR VISIT Refill MEDICAL (GENERAL) HISTORY Type Description Date Medical History DIVERTICULOSIS Medical History CVA MAR 2019 Medical History GERD Medical History HYPERLIPIDEMIA Medical History MEMORY LOSS Medical History DEPRESSION Medical History OVERACTIVE BLADDER Medical History INSOMNIA Medical History SEASONAL ALLERGIES Surgical History tonsils removed Surgical History partial colectomy X2 Surgical History cervical spine fusion Surgical History gallstones removed Surgical History endoscopies Surgical History ERCP with stent placement 09/2019 Surgical History stent removed Hospitalization History surgery Hospitalization History CVA 03/2019 Hospitalization History [facility]: Choledocholithiasis 09/2019 Hospitalization History [facility] 06/01/2020 Goals Section No Information Health Concerns No Information MEDICAL EQUIPMENT No Information MENTAL STATUS No Information FUNCTIONAL STATUS No Information ASSESSMENTS No Information PLAN OF TREATMENT Medication Medication Name Sig Start Date Stop Date Donepezil HCl 5 MG TAKE 1 TABLET BY MOUTH EVERY DAY Cholecalciferol 25 MCG (1000 UT) 2 Orally Once a day TraZODone HCl 100 MG 1 tablet at bedtime Orally Once a day Pregabalin 200 MG 1 cap Orally bid Atorvastatin Calcium 40 MG 1 tablet Orally Once a day Vitamin B12 1000 MCG 1 tablet Orally Once a day Omeprazole 20 MG 1 capsule 30 minutes before morning meal Orally Once a day for 90 Aspirin EC Low Dose 81 MG 1 tablet Orally Once a day Primidone 50 MG as directed Orally tid BuPROPion HCl ER (Smoking Det) 150 MG 1 tablet in the mornin g Orally Once a day Fenofibrate 160 MG 1 tab Orally Daily Oxybutynin Chloride 5 MG 1 tab Orally tid Propranolol HCl 40 MG 1 tablet Orally Once a day Walker - as directed 4 WHEELED WALKER WITH SEAT I 63.9, UNSTEADY GAIT October, Venlafaxine HCl ER 150 MG 1 capsule with food Orally bid Sep, Next Appt Details Provider Name:Brinda Moore, 2020-06-30 09 :30:00 AM, [address] [place], [address], Provider Name:Margaret Jara, 2020-07-31 01:00:00 PM, [address] [place] [address], [phone], Insurance Providers Payer Name Payer Address Payer Phone Insured Name Patient Relati onship to Insured Coverage Start Date Coverage End Date MEDICARE COMPLETE [facility] [address] [address] [facility] [id number] TAY SOSA self
--- OUTSIDE RECORDS SUMMARY | 2020-06-29 18:08 | CCD ---
Author Author [facility] Organization [facility] Address Unknown Phone Unavailable Care Team Providers Care Capital Campaign Fundraiser Name Role Phone Margaret Jara Unavailable PROBLEMS Type Condition ICD9-CM Code [id number] Code Onset Dates Condition S tatus SNOMED Code Notes Problem Cerebrovascular accident (CVA), unspecified mechanism I63.9 Active 794071945 Problem Vitamin D deficiency E55.9 Active 52182791 Problem Other chronic pain G89.29 Active 28966514 Problem Depression, unspecified depression type F32.9 Active 05846807 Problem Gastroesophageal reflux disease, esophagitis pre sence not specified K21.9 Active 488455734 Problem Dyslipidemia E78.5 Active 187683580 Problem Decreased appetite R63.0 Active 56565761 ALLERGIES Allergen (clinical drug ingredient) Drug/Non Drug Allergy do cumented on EMR Reaction Allergy Type Onset Date Status morphine headache, restless Non Drug Allergy Active ENCOUNTERS from 1945 to 2020-04-08 Encounter Location Date Provider Diagnosis [facility] [address] [place] [address] Mar Margaret Jara Cerebrovascular accident (CVA), unspecif ied mechanism I63.9 ; Gastroesophageal reflux disease, esophagitis presence not specified K21.9 and Encounter for immunization Z23 IMMUNIZATIONS Vaccine Route Administration Date Status Influenza (18 yrs & older) Flublok IM Intramuscular Mar 21, 2020 Administered SOCIAL HISTORY Tobacco Use: Social History Observation Description Date Details (start date - stop date) Never Smoker Sex Assigned At : Social History Observation Description Sex Assigned At Unknown Audit Question Answer Notes Total Score: 0 Interpretation: Alcohol Education Language: Question Answer Notes Languages spoken: Vietnamese Holiness: Question Answer Notes Holiness No muslim beliefs that would impact health care. Drug and Alcohol Question Answer Notes Total Score: 0 Interpretation: No problems reported Alcohol Screening: Question Answer Notes Did you have a drink containing alcohol in the past year? No Points 0 Interpretation Negative Tobacco Use: Question Answer Notes Are you a: never smoker REASON FOR REFERRAL No Information VITAL SIGNS Weight 113 lbs lbs Mar, Height 62 in Mar, BMI 20.67 kg/m2 Mar, Heart Rate 63 /min Mar, Respiratory Rate 18 /min Mar, Temperature 98.7 degrees Fahrenheit Mar, Oximetry 96%ra Mar, Blood pressure systolic 150 mm Hg Mar, Blood pressure diastolic 71 mm Hg Mar, MEDICATIONS Medication SIG (Take, Route, Frequency, Duration) Start Date En d Date Status BuPROPion HCl ER (Smoking Det) 150 MG 1 tablet in the mornin g Orally Once a day Active Cholecalciferol 25 MCG (1000 UT) 2 Orally Once a day Active Pregabalin 200 MG 1 cap Orally bid Active Walker - as directed 4 WHEELED WALKER WITH SEAT I 63.9, UNSTEADY GAIT October, Active Atorvastatin Calcium 40 MG 1 tablet Orally Once a day Active Venlafaxine HCl ER 150 MG 1 capsule with food Orally bid Sep, Active Vitamin B12 1000 MCG 1 tablet Orally Once a day Active Primidone 50 MG as directed Orally Active Oxybutynin Chloride 5 MG 1 tab Orally tid Active TraZODone HCl 100 MG 1 tablet at bedtime Orally Once a day Active Fenofibrate 160 MG TAKE 1 TABLET BY MOUTH DAILY for 90 Active Omeprazole 20 MG 1 capsule 30 minutes before morning meal Orally Once a day Nov, Active Propranolol HCl 40 MG TAKE 1 TABLET BY MOUTH ONCE DAILY FOR ESSE NTIAL TREMORS Active Aspirin EC Low Dose 81 MG 1 tablet Orally Once a day Active Donepezil HCl 5 MG TAKE 1 TABLET BY MOUTH EVERY DAY Active PROCEDURES No Information RESULTS No Results REASON FOR VISIT 2 mo f/u MEDICAL (GENERAL) HISTORY Type Description Date Medical [...] CVA 03/2019 Hospitalization History [facility]: Choledocholithiasis 09/2019 Goals Section No Information Health Concerns No Information MEDICAL EQUIPMENT No Information MENTAL STATUS No Information FUNCTIONAL STATUS No Information ASSESSMENTS Encounter Date Diagnosis Notes Mar, Gastroesophageal reflux dise ase, esophagitis presence not specified (ICD-10 - K21.9) Mar, Cerebrovascular accident (CV A), unspecified mechanism (ICD-10 - I63.9) Mar, Encounter for immunization (ICD-10 - Z23 ) PLAN OF TREATMENT Medication Medication Name Sig Start Date Stop Date Venlafaxine HCl ER 150 MG 1 capsule with food Orally bid Sep, Propranolol HCl 40 MG TAKE 1 TABLET BY MOUTH ONCE DAILY FOR ESSE NTIAL TREMORS Atorvastatin Calcium 40 MG 1 tablet Orally Once a day Walker - as directed 4 WHEELED WALKER WITH SEAT I 63.9, UNSTEADY GAIT October, Primidone 50 MG as directed Orally Cholecalciferol 25 MCG (1000 UT) 2 Orally Once a day Oxybutynin Chloride 5 MG 1 tab Orally tid Pregabalin 200 MG 1 cap Orally bid Fenofibrate 160 MG TAKE 1 TABLET BY MOUTH DAILY for 90 Aspirin EC Low Dose 81 MG 1 tablet Orally Once a day Vitamin B12 1000 MCG 1 tablet Orally Once a day TraZODone HCl 100 MG 1 tablet at bedtime Orally Once a day Omeprazole 20 MG 1 capsule 30 minutes before morning meal Orally Once a day Nov, BuPROPion HCl ER (Smoking Det) 150 MG 1 tablet in the mornin g Orally Once a day Donepezil HCl 5 MG TAKE 1 TABLET BY MOUTH EVERY DAY Treatment Notes Assessment Notes Clinical Notes Encounter for immunization Patient Educated with: FLU Vaccine, Inactivated [id number] (FLU Vaccine, Inactivated [id number]) Treatment Notes Test Name Order Date Immunization: Flublok Quadrivalent (18 years & older) 0.5mL IM (Influenza) 2020-04-08 Next Appt Details 4 Months Reason: Provider Name:Jose M Melchor, 2020-04-09 09:00:00 AM, [address] [place], [address], Provider Name:Margaret Jara, 2020-07-31 01:00:00 PM, [address] [place] [address], [phone], Insurance Providers Payer Name Payer Address Payer Phone Insured Name Patient Relati onship to Insured Coverage Start Date Coverage End Date MEDICARE COMPLETE [employer] [address] [address] [facility] [phone] TAY SOSA self
--- OUTSIDE RECORDS SUMMARY | 2020-06-29 18:08 | CCD ---
Author Author [facility] Organization [facility] Address Unknown Phone Unavailable Care Team Providers Care Remote Broadcast Technician Name Role Phone Rodrigo Bhatti Unavailable PROBLEMS Type Condition ICD9-CM Code [id number] Code Onset Dates Condition S tatus SNOMED Code Notes Problem Cerebrovascular accident (CVA), unspecified mechanism I63.9 Active 872914830 Problem Vitamin D deficiency E55.9 Active 58799514 Problem Other chronic pain G89.29 Active 22656286 Problem Depression, unspecified depression type F32.9 Active 96962249 Problem Gastroesophageal reflux disease, esophagitis pre sence not specified K21.9 Active 822289493 Problem Dyslipidemia E78.5 Active 448516663 Problem Decreased appetite R63.0 Active 53849769 ALLERGIES Allergen (clinical drug ingredient) Drug/Non Drug Allergy do cumented on EMR Reaction Allergy Type Onset Date Status morphine headache, restless Non Drug Allergy Active ENCOUNTERS from 1945 to 2020-06-05 Encounter Location Date Provider Diagnosis [facility] [address] [place] [address] May, Rodrigo Bhatti IMMUNIZATIONS Vaccine Route Administration Date Status Influenza (18 yrs & older) Flublok IM Intramuscular Mar 21, 2020 Administered SOCIAL HISTORY Tobacco Use: Social History Observation Description Date Details (start date - stop date) Never Smoker Sex Assigned At : Social History Observation Description Sex Assigned At Unknown Audit Question Answer Notes Total Score: 0 Interpretation: Alcohol Education Language: Question Answer Notes Languages spoken: Kyrgyz Sabianist: Question Answer Notes Sabianist No catholic beliefs that would impact health care. Drug [...] Notes Start Da te End Date Status Atorvastatin Calcium 40 MG 1 tablet Orally Once a day for 90 Active TraZODone HCl 100 MG 1 tablet at bedtime Orally Once a day for 30 Day s Active Venlafaxine HCl ER 150 MG 1 capsule with food Orally bid 2 Sep, Active Primidone 50 MG as directed Orally tid Active Cholecalciferol 25 MCG (1000 UT) 2 Orally Once a day Active Propranolol HCl 40 MG 1 tablet Orally tid for 90 Active Pregabalin 200 MG 1 cap Orally bid for 30 Days Active BuPROPion HCl ER (Smoking Det) 150 MG 1 tablet in the mornin g Orally Once a day Active Diclofenac Sodium 50 MG 1 tablet Orally three times daily for 30 day(s) Mar, Active Vitamin B12 1000 MCG 1 tablet Orally Once a day Active Oxybutynin Chloride 5 MG 1 tab Orally tid Active Omeprazole 20 MG 1 capsule 30 minutes before morning meal Orally Once a day Nov, Active Fenofibrate 160 MG 1 tab Orally Daily for 90 Active Donepezil HCl 5 MG TAKE 1 TABLET BY MOUTH EVERY DAY for 30 Active Aspirin EC Low Dose 81 MG 1 tablet Orally Once a day Active Walker - as directed 4 WHEELED WALKER WITH SEAT I63.9, U NSTEADY GAIT October, Unknown PROCEDURES No Information RESULTS No Results REASON FOR VISIT [facility] D/C 06/04 MEDICAL (GENERAL) HISTORY Type Description Date Medical [...] surgery Hospitalization History CVA 03/2019 Hospitalization History [facility]: Choledocholithiasis 09/2019 Goals Section No Information Health Concerns No Information MEDICAL EQUIPMENT No Information MENTAL STATUS No Information FUNCTIONAL STATUS No Information ASSESSMENTS No Information PLAN OF TREATMENT Next Appt Details Provider Name:Jose M Kristy Melchor, 2020-06-10 09:30:00 AM, [address] [place] [address], [phone], Provider Name:Rodrigo Bhatti, 2020-06-11 10 :00:00 AM, [address], [place], [address], Provider Name:Margaret Jara, 2020-07-31 01:00:00 PM, [address], [place], [address], Insurance Providers Payer Name Payer Address Payer Phone Insured Name Patient Relati onship to Insured Coverage Start Date Coverage End Date MEDICARE COMPLETE [employer] [address] [address] [facility] [phone] TAY SOSA self
--- OUTSIDE RECORDS SUMMARY | 2020-06-29 18:08 | CCD | Continuity of Care Document ---
Author Author Karli LYON M.D. 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 Onset: 07/18/2019 Neck pain Samuel Lyon M.D. Onset: 07/18/2019 Spondylolysis of cervical spine Samuel Lyon M.D. Onset: 0 07/18/2019 Spondylolysis Samuel Lyon M.D. Onset: 07/18/2019 Low back pain Samuel Lyon M.D. Onset: 07/18/2019 Lumbar radiculopathy Samuel Lyon M.D. Onset: 07/18/2019 Carpal tunnel syndrome of left wrist Samuel Lyon M.D. Ons et: 09/19/2019 Lesion of ulnar nerve Samuel Lyon M.D. Onset: 09/19/2019 Essential tremor Samuel Lyon M.D. Onset: 09/19/2019 Diplopia Samuel Lyon M.D. Onset: 09/19/2019 Social History Type Date Description Comments Sex Unknown Tobacco Use Start: Unknown Patient has never smoked Allergies, Adverse Reactions, Alerts Active Allergies Reaction Severity Comments Date Morphine 07/18/2019 Medications Active Medications SIG Qnty Indications Ordering Provide r Date Primidone 50mg Tablets take 1/2 tablet by mouth twice daily. 15tabs Samuel Lyon M.D. 09/19/2019 Immunizations Description No Information Available Vital Signs Date Vital Result Comment 07/18/2019 8:21am BP Systolic 120 mmHg BP Diastolic 70 mmHg Heart Rate 70 /min Respiratory Rate 14 /min Height 62 inches 5'2" Weight 115.00 lb BMI (Body Mass Index) 21.0 kg/m2 [place] Body Weight 110 lb Results Description No Information Available Procedures Description No Information Available Medical Devices Description No Information Available Encounters Type Date Location Provider Dx Diagnosis Office Visit 04/24/2020 1:45p Main office - [place] Hung Griffith M54.2 Cervicalgia M43.02 Spondylolysis, 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, lumbar region M54.5 Low back pain M54.16 Radiculopathy, lumbar region I63.032 Cerebral infarction due to t hrombosis of left carotid artery G56.02 Carpal tunnel syndrome, left upper limb G56.22 Lesion of ulnar nerve, left upper limb G25.0 Essential tremor H53.2 Diplopia Assessments Date Code Description Provider 04/24/2020 M54.2 Cervicalgia Samuel Lyon M.D. 04/24/2020 M43.02 Spondylolysis, cervical region M ricki Lyon M.D. 04/24/2020 M43.06 Spondylolysis, lumbar region Balbir Lyon M.D. 04/24/2020 M54.5 Low back pain Samuel Lyon M.D. 04/24/2020 M54.16 Radiculopathy, lumbar region Balbir Lyon M.D. 04/24/2020 I63.032 Cerebral infarction due to throm bosis of left carotid artery Samuel Lyon M.D. 04/24/2020 G56.02 Carpal tunnel syndrome, left upp er limb Samuel Lyon M.D. 04/24/2020 G56.22 Lesion of ulnar nerve, left uppe r limb Samuel Lyon M.D. 04/24/2020 G25.0 Essential tremor Daniele Griffiht 04/24/2020 H53.2 Diplopia Samuel Lyon M.D. Plan of Treatment No Information Available Functional Status Description No Information Available Mental Status Description No Information Available Referrals Description No Information Available
--- OUTSIDE RECORDS SUMMARY | 2020-06-29 18:08 | CCD ---
Author Author [facility] Organization [facility] Address Unknown Phone Unavailable Care Team Providers Care Scrub Technician Name Role Phone Bhatti, Rodrigo Unavailable PROBLEMS Type Condition ICD9-CM Code [id number] Code Onset Dates Condition S tatus SNOMED Code Notes Problem Depression, unspecified depression type F32.9 Active 90124854 Problem Gastroesophageal reflux disease, esophagitis pre sence not specified K21.9 Active 002398674 Problem Dyslipidemia E78.5 Active 496939941 Problem Abnormal chest xray R93.89 Active 389840197 Problem Cerebrovascular accident (CVA), unspecified mechanism I63.9 Active 062927687 Problem TIA (transient ischemic attack) G45.9 Active 749703187 Problem Decreased appetite R63.0 Active 79672991 Problem Vitamin D deficiency E55.9 Active 53370348 Problem Other chronic pain G89.29 Active 76210800 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 32781292 ALLERGIES Allergen (clinical drug ingredient) Drug/Non Drug Allergy do cumented on EMR Reaction Allergy Type Onset Date Status morphine headache, restless Non Drug Allergy Active ENCOUNTERS from 1945 to 2020-06-21 Encounter Location Date Provider Diagnosis [facility] [address] [place] [address] Jun, Rodrigo Bhatti Abnormal chest xray R93.89 IMMUNIZATIONS Vaccine Route Administration Date Status Influenza (18 yrs & older) Flublok IM Intramuscular Mar 21, 2020 Administered SOCIAL HISTORY Tobacco Use: Social History Observation Description Date Details (start date - stop date) Never Smoker Sex Assigned At : Social History Observation Description Sex Assigned At Unknown Audit Question Answer Notes Total Score: 0 Interpretation: Alcohol Education Language: Question Answer Notes Languages spoken: Kazakh Zoroastrianism: Question Answer Notes Zoroastrianism No mormon beliefs that would impact health care. Drug [...] Information RESULTS No Results REASON FOR VISIT No Information MEDICAL (GENERAL) HISTORY Type Description Date Medical [...] STATUS No Information ASSESSMENTS Encounter Date Diagnosis Assessment Notes Treatment Notes Treatm ent Clinical Notes Jun, Abnormal chest xray (ICD-10 - R93.89) PLAN OF TREATMENT Medication Medication Name Sig [...] 1 capsule with food Orally bid Sep, Future Test Test Name Order Date [facility] Chest with contrast [id number] Next Appt Details Provider Name:Brinda Moore, 2020-06-30 09 :30:00 AM, [address] [place], [address], Provider Name:Margaret Jara, 2020-07-31 01:00:00 PM, [address] [place] [address], [address], Insurance Providers Payer Name Payer Address Payer Phone Insured Name Patient Relati onship to Insured Coverage Start Date Coverage End Date MEDICARE COMPLETE [employer] [address] [address] [facility] [id number] TAY SOSA self
--- OUTSIDE RECORDS SUMMARY | 2020-06-29 18:08 | CCD ---
Author Author [facility] Organization [facility] Address Unknown Phone Unavailable Care Team Providers Care Comsec Manager Name Role Phone Rodrigo Bhatti Unavailable PROBLEMS Type Condition ICD9-CM Code [id number] Code Onset Dates Condition S tatus SNOMED Code Notes Problem Depression, unspecified depression type F32.9 Active 08997017 Problem Gastroesophageal reflux disease, esophagitis pre sence not specified K21.9 Active 256597947 Problem Dyslipidemia E78.5 Active 264181281 Problem Abnormal chest xray R93.89 Active 935049833 Problem Cerebrovascular accident (CVA), unspecified mechanism I63.9 Active 008979155 Problem TIA (transient ischemic attack) G45.9 Active 332920276 Problem Decreased appetite R63.0 Active 29753778 Problem Vitamin D deficiency E55.9 Active 98787977 Problem Other chronic pain G89.29 Active 98813697 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 07283903 ALLERGIES Allergen (clinical drug ingredient) Drug/Non Drug Allergy do cumented on EMR Reaction Allergy Type Onset Date Status morphine headache, restless Non Drug Allergy Active ENCOUNTERS from 1945 to 2020-06-12 Encounter Location Date Provider Diagnosis [facility] [address] [place] [address] May, Rodrigo Bhatti TIA (transient ischemic attack) G45.9 ; Abnormal chest xray R93.89 ; Gastroesophageal reflux disease, esophagitis presence not specified K21.9 ; Cerebrovascular accident (CVA), unspecified mechanism I63.9 ; Other chronic pain G89.29 and 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 Drug and Alcohol Question Answer Notes Total Score: 0 Interpretation: No problems reported Alcohol Screening: Question Answer Notes Did you have a drink containing alcohol in the past year? No Points 0 Interpretation Negative Tobacco Use: Question Answer Notes Are you a: never smoker REASON FOR REFERRAL No Information VITAL SIGNS Weight 111 lbs May, 2019 Height 62 in May, BMI 20.30 kg/m2 May, Heart Rate 60 /min May, Respiratory Rate 18 /min May, Temperature 97.2 degrees Fahrenheit May, Oximetry 96%RA May, Blood pressure systolic 133 mm Hg May, Blood pressure diastolic 60 mm Hg May, MEDICATIONS Medication SIG (Take, Route, Frequency, Duration) [...] meal Orally Once a day Nov, Active Oxybutynin Chloride 5 MG 1 tab [...] Information RESULTS No Results REASON FOR VISIT [facility] d/c aphasia hypokalemia MEDICAL (GENERAL) HISTORY Type Description Date Medical [...] Notes Treatment Notes Treatm ent Clinical Notes May, TIA (transient ischemic attack) (ICD-10 - G45.9) May, Abnormal chest xray (ICD-10 - R93.89) May, Gastroesophageal reflux dise ase, esophagitis presence not specified (ICD-10 - K21.9) May, Cerebrovascular accident (CV A), unspecified mechanism (ICD-10 - I63.9) May, Other chronic pain (ICD-10 - G89.29) May, Somnambulism (ICD-10 - F51.3) PLAN OF TREATMENT Medication Medication Name Sig [...] morning meal Orally Once a day Nov, Aspirin EC Low Dose 81 MG 1 [...] Sep, Future Test Test Name Order Date [facility]SCAR CHEST 2 VIEW [id number] Next Appt Details 3 Months with SP Reason: Provider Name:Brinda Moore, 2020-06-30 09 :30:00 AM, [address] [place], [address], Provider Name:Margaret Jara, 2020-07-31 01:00:00 PM, [address] [place], [address], Insurance Providers Payer Name Payer Address Payer Phone Insured Name Patient Relati onship to Insured Coverage Start Date Coverage End Date MEDICARE COMPLETE [employer] [address] [address] [facility] [id number] TAY SOSA self
--- OUTSIDE RECORDS SUMMARY | 2020-06-29 18:08 | CCD ---
Author Author [facility] Organization [facility] Address Unknown Phone Unavailable Care Team Providers Care Community Education Specialist Name Role Phone Bhatti, Rodrigo Unavailable PROBLEMS Type Condition ICD9-CM Code [id number] Code Onset Dates Condition S tatus SNOMED Code Notes Problem Depression, unspecified depression type F32.9 Active 89113561 Problem Gastroesophageal reflux disease, esophagitis pre sence not specified K21.9 Active 542913887 Problem Dyslipidemia E78.5 Active 155970539 Problem Abnormal chest xray R93.89 Active 480356653 Problem Cerebrovascular accident (CVA), unspecified mechanism I63.9 Active 794057232 Problem TIA (transient ischemic attack) G45.9 Active 992954369 Problem Decreased appetite R63.0 Active 95248383 Problem Vitamin D deficiency E55.9 Active 87177287 Problem Other chronic pain G89.29 Active 60414806 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 Drug [...] Notes Start Da te End Date Status Propranolol HCl 40 MG 1 tablet Orally three times a day Active Vitamin B12 1000 MCG 1 tablet Orally Once a day Active Venlafaxine HCl ER 150 MG 1 capsule with food Orally bid 2 4 Sep, 2019 Active Aspirin EC Low Dose 81 MG 1 tablet Orally Once a day Active Atorvastatin Calcium 40 MG 1 tablet Orally Once a day Active Cholecalciferol 25 MCG (1000 UT) 2 Orally Once a day Not-Taking Donepezil HCl 5 MG TAKE 1 TABLET BY MOUTH EVERY DAY Active Omeprazole 20 MG 1 capsule 30 minutes before morning meal Orally Once a day for 90 Active Primidone 50 MG 0.5 tablet Orally Twice a day Active Fenofibrate 160 MG 1 tab Orally Daily Active Walker - as directed 4 WHEELED WALKER WITH SEAT I63.9, U NSTEADY GAIT October, Active PROCEDURES No Information RESULTS No Results REASON FOR VISIT [facility] D/C 06/24 MEDICAL (GENERAL) HISTORY Type Description Date Medical [...] surgery Hospitalization History CVA 03/2019 Hospitalization History [facility]: Choledocholithiasis 09/2019 Hospitalization History [facility]-TIA 06/01/2020 Goals Section No Information Health Concerns No Information MEDICAL EQUIPMENT No Information MENTAL STATUS No Information FUNCTIONAL STATUS No Information ASSESSMENTS Encounter Date Diagnosis Assessment Notes Treatment Notes Treatm ent Clinical Notes Jun, Other Spoke to pts so n and daughter in law, hospital follow up appt confirmed, medications reviewed and verified. Karlene Melendez RN 06/25/2020 1144 PLAN OF TREATMENT Next Appt Details Provider Name:Brinda Moore, 2020-06-30 09 :30:00 AM, [address] [place], [address], Provider Name:Rodrigo Bhatti, 2020-07-01 10 :00:00 AM, [address] , [place], [address], Provider Name:Margaret Jara, 2020-07-31 01:00:00 PM, [address], [place], [address], Insurance Providers Payer Name Payer Address Payer Phone Insured Name Patient Relati onship to Insured Coverage Start Date Coverage End Date MEDICARE COMPLETE [facility] [address] [address] [facility] [phone] TAY SOSA self
--- OUTSIDE RECORDS SUMMARY | 2020-06-29 18:08 | CCD ---
Author Author [facility] Organization [facility] Address Unknown Phone Unavailable Care Team Providers Care Clinical Education Manager Name Role Phone Margaret Jara Unavailable PROBLEMS Type Condition ICD9-CM Code [id number] Code Onset Dates Condition S tatus SNOMED Code Notes Problem Cerebrovascular accident (CVA), unspecified mechanism I63.9 Active 302146131 Problem Vitamin D deficiency E55.9 Active 34136320 Problem Other chronic pain G89.29 Active 03666772 Problem Depression, unspecified depression type F32.9 Active 35139248 Problem Gastroesophageal reflux disease, esophagitis pre sence not specified K21.9 Active 696072912 Problem Dyslipidemia E78.5 Active 283419844 Problem Decreased appetite R63.0 Active 29930438 ALLERGIES Allergen (clinical drug ingredient) Drug/Non Drug Allergy do cumented on EMR Reaction Allergy Type Onset Date Status morphine headache, restless Non Drug Allergy Active ENCOUNTERS from 1945 to 2020-04-26 Encounter Location Date Provider Diagnosis [facility] [address] [place] [address] Apr Margaret Jara IMMUNIZATIONS Vaccine Route Administration Date Status Influenza (18 yrs & older) Flublok IM Intramuscular Mar 21, 2020 Administered SOCIAL HISTORY Tobacco Use: Social History Observation Description Date Details (start date - stop date) Never Smoker Sex Assigned At : Social History Observation Description Sex Assigned At Unknown Audit Question Answer Notes Total Score: 0 Interpretation: Alcohol Education Language: Question Answer Notes Languages spoken: Serbian Rastafarian: Question Answer Notes Rastafarian No voodoo beliefs that would impact health care. Drug [...] Duration) Start Date En d Date Status Diclofenac Sodium 50 MG 1 tablet Orally three times daily fo r 30 day(s) Mar, Active Propranolol HCl 40 MG TAKE 1 TABLET BY MOUTH ONCE DAILY FOR ESSE NTIAL TREMORS Active Oxybutynin Chloride 5 MG 1 tab Orally tid Active Cholecalciferol 25 MCG (1000 UT) 2 Orally Once a day Active TraZODone HCl 100 MG 1 tablet at bedtime Orally Once a day for 30 D ays Active Atorvastatin Calcium 40 MG 1 tablet Orally Once a day for 90 Active Fenofibrate 160 MG 1 tab Orally Daily for 90 Active Donepezil HCl 5 MG TAKE 1 TABLET BY MOUTH EVERY DAY Active BuPROPion HCl ER (Smoking Det) 150 MG 1 tablet in the mornin g Orally Once a day Active Primidone 50 MG as directed Orally Active Omeprazole 20 MG 1 capsule 30 minutes before morning meal Orally Once a day Nov, Active Walker - as directed 4 WHEELED WALKER WITH SEAT I 63.9, UNSTEADY GAIT October, Not-Taking Vitamin B12 1000 MCG 1 tablet Orally Once a day Active Pregabalin 200 MG 1 cap Orally bid for 30 Days Active Aspirin EC Low Dose 81 MG 1 tablet Orally Once a day Active Venlafaxine HCl ER 150 MG 1 capsule with food Orally bid Sep, 20 Active PROCEDURES No Information RESULTS No Results REASON FOR VISIT renewal MEDICAL (GENERAL) HISTORY Type Description Date Medical [...] Medication Name Sig Start Date Stop Date Fenofibrate 160 MG 1 tab Orally Daily for 90 Pregabalin 200 MG 1 cap Orally bid for 30 Days Atorvastatin Calcium 40 MG 1 tablet Orally Once a day for 90 TraZODone HCl 100 MG 1 tablet at bedtime Orally Once a day for 3 0 Days Diclofenac Sodium 50 MG 1 tablet Orally three times daily fo r 30 day(s) Mar, Next Appt Details Provider Name:Brinda Moore, 2020-06-10 10 :00:00 AM, [address] [place], [address], Provider Name:Margaret Jara, 2020-07-31 01:00:00 PM, [address] [place] [address], [address], Insurance Providers Payer Name Payer Address Payer Phone Insured Name Patient Relati onship to Insured Coverage Start Date Coverage End Date MEDICARE COMPLETE [employer] [address] [address] [facility] [id number] TAY SOSA self
--- OUTSIDE RECORDS SUMMARY | 2020-06-29 18:08 | CCD ---
Author Author [facility] Organization [facility] Address Unknown Phone Unavailable Care Team Providers Care In Flight Refueling Operator Name Role Phone Marek Margaret Unavailable PROBLEMS Type Condition ICD9-CM Code EDL69-NP Code Onset Dates Condition S tatus SNOMED Code Notes Problem Depression, unspecified depression type F32.9 Active 94881649 Problem Gastroesophageal reflux disease, esophagitis pre sence not specified K21.9 Active 180334216 Problem Dyslipidemia E78.5 Active 367268435 Problem Abnormal chest xray R93.89 Active 348209205 Problem Cerebrovascular accident (CVA), unspecified mechanism I63.9 Active 281777276 Problem TIA (transient ischemic attack) G45.9 Active 707339208 Problem Decreased appetite R63.0 Active 79782656 Problem Vitamin D deficiency E55.9 Active 74746930 Problem Other chronic pain G89.29 Active 18034947 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 Drug [...] Information RESULTS No Results REASON FOR VISIT call back MEDICAL (GENERAL) HISTORY Type Description Date Medical [...] Name:Brinda Moore, 2020-06-30 09 :30:00 AM, [address] [place], [address], Provider Name:Margaret Jara, 2020-07-31 01:00:00 PM, [address] [place] [address], [address], Insurance Providers Payer Name Payer Address Payer Phone Insured Name Patient Relati onship to Insured Coverage Start Date Coverage End Date MEDICARE COMPLETE [facility] [address] [address] [facility] [id number] TAY SOSA self
--- OUTSIDE RECORDS SUMMARY | 2020-06-29 18:09 | CCD ---
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 Name Role Phone Lesley Miles MD Unavailable Unavailable Mollison, Lesley Roger MD Unavailable Unavailable Mollison, Lesley Roger MD Unavailable Unavailable Mollison, Lesley Roger MD Unavailable Unavailable Mollison, Lesley Roger MD Unavailable Unavailable Mollison, Lesley Roger MD Unavailable Unavailable Mollison, Lesley Roger MD Unavailable Unavailable Mollison, Lesley Roger MD Unavailable Unavailable Mollison, Lesley Roger MD Unavailable Unavailable Mollison, Lesley Roger MD Unavailable Unavailable Mollison, Lesley Roger MD Unavailable Unavailable Mollison, Lesley Roger MD Unavailable Unavailable Mollison, Lesley Roger MD Unavailable Unavailable Mollison, Lesley Roger MD Unavailable Unavailable Mollison, Lesley Roger MD Unavailable Unavailable Mollison, Lesley Roger MD Unavailable Unavailable Mollison, Lesley Roger MD Unavailable Unavailable Mollison, Lesley Roger MD Unavailable Unavailable Mollison, Lesley Roger MD Unavailable Unavailable Mollison, Lesley Roger MD Unavailable Unavailable MollisonLesley MD Unavailable Unavailable Loyola, L Ann Marie RPA Unavailable Unavailable Loyola, L Ann Marie RPA Unavailable Unavailable Loyola, L Ann Marie RPA Unavailable Unavailable Loyola, L Ann Marie RPA Unavailable Unavailable Loyola, L Ann Marie RPA Unavailable Unavailable Loyola, L Ann Marie RPA Unavailable Unavailable Loyola, L Ann Marie RPA Unavailable Unavailable Loyola, L Ann Marie RPA Unavailable Unavailable Loyola, L Ann Marie RPA Unavailable Unavailable Loyola, L Ann Marie RPA Unavailable Unavailable Loyola, L Ann Marie RPA Unavailable Unavailable Loyola, L Ann Marie RPA Unavailable Unavailable Loyola, L Ann Marie RPA Unavailable Unavailable Loyola, L Ann Marie RPA Unavailable Unavailable Loyola, L Ann Marie RPA Unavailable Unavailable Loyola, L Ann Marie RPA Unavailable Unavailable Loyola, L Ann Marie RPA Unavailable Unavailable Olyola, L Ann Marie RPA Unavailable Unavailable Loyola, L Ann Marie RPA Unavailable Unavailable Loyola, L Ann Marie RPA Unavailable Unavailable Loyola, L Ann Marie RPA Unavailable Unavailable Loyola, L Ann Marie RPA Unavailable Unavailable Loyola, L Ann Marie RPA Unavailable Unavailable Loyola, L Ann Marie RPA Unavailable Unavailable Loyola, L Ann Marie RPA Unavailable Unavailable Loyola, L Ann Marie RPA Unavailable Unavailable Loyola, L Ann Marie RPA Unavailable Unavailable Loyola, L Ann Marie RPA Unavailable Unavailable Loyola, L Ann Marie RPA Unavailable Unavailable Loyola, L Ann Marie RPA Unavailable Unavailable Loyola, L Ann Marie RPA Unavailable Unavailable Loyola, L Ann Marie RPA Unavailable Unavailable Ali, Samuel MD Unavailable Unavailable Ali, Samuel MD Unavailable Unavailable Ali, Samuel MD Unavailable Unavailable Ali, Samuel MD Unavailable Unavailable Ali, Samuel MD Unavailable Unavailable Ali, Samuel MD Unavailable Unavailable Ali, Samuel MD Unavailable Unavailable Ali, Samuel MD Unavailable Unavailable Ali, Samuel MD Unavailable Unavailable Ali, Samuel MD Unavailable Unavailable Ali, Samuel MD Unavailable Unavailable Ali, Samuel MD Unavailable Unavailable Ali, Samuel MD Unavailable Unavailable Ali, Samuel MD Unavailable Unavailable Ali, Samuel MD Unavailable Unavailable Ali, Samuel MD Unavailable Unavailable Ali, Samuel MD Unavailable Unavailable Ali, Samuel MD Unavailable Unavailable Ali, Samuel MD Unavailable Unavailable Ali, Samuel MD Unavailable Unavailable Ali, Samuel MD Unavailable Unavailable Ali, Samuel MD Unavailable Unavailable Ali, Samuel MD Unavailable Unavailable Ali, Samuel MD Unavailable Unavailable Ali, Samuel MD Unavailable Unavailable Ali, Samuel MD Unavailable Unavailable Ali, Samuel MD Unavailable Unavailable Ali, Samuel MD Unavailable Unavailable Ali, Samuel MD Unavailable Unavailable Ali, Samuel MD Unavailable Unavailable Ali, Samuel MD Unavailable Unavailable Ali, Samuel MD Unavailable Unavailable Ali, Samuel MD Unavailable Unavailable Ali, Samuel MD Unavailable Unavailable Ali, Samuel MD Unavailable Unavailable Ali, Samuel MD Unavailable Unavailable Ali, Samuel MD Unavailable Unavailable Ali, Samuel MD Unavailable Unavailable Ali, Samuel MD Unavailable Unavailable Ali, Samuel MD Unavailable Unavailable Ali, Samuel MD Unavailable Unavailable Ali, Samuel MD Unavailable Unavailable Ali, Samuel MD Unavailable Unavailable Ali, Samuel MD Unavailable Unavailable Ali, Samuel MD Unavailable Unavailable Ali, Samuel MD Unavailable Unavailable Ali, Samuel MD Unavailable Unavailable Ali, Samuel MD Unavailable Unavailable Ali, Samuel MD Unavailable Unavailable Ali, Samuel MD Unavailable Unavailable Ali, Samuel MD Unavailable Unavailable Ali, Samuel MD Unavailable Unavailable Re-disclosure Warning The records that you are about to access may contain information from federally-assisted alcohol or drug abuse programs. If such information is present, then the following federally mandated warning applies: This information has been disclosed to you from records protected by federal confidentiality rules (42 CFR part 2). The federal rules prohibit you from making any further disclosure of this information unless further disclosure is expressly permitted by the written consent of the person to whom it pertains or as otherwise permitted by 42 CFR part 2. A general authorization for the release of medical or other information is NOT sufficient for this purpose. The Federal rules restrict any use of the information to criminally investigate or prosecute any alcohol or drug abuse patient.The records that you are about to access may contain highly sensitive health information, the redisclosure of which is protected by Article 27-F of the [facility] Public Health law. If you continue you may have access to information: Regarding HIV / AIDS; Provided by facilities licensed or operated by the [facility] Office of Mental Health; or Provided by the [facility] Office for People With Developmental Disabilities. If such information is present, then the following [facility] mandated warning applies: This information has been disclosed to you from confidential records which are protected by state law. State law prohibits you from making any further disclosure of this information without the specific written consent of the person to whom it pertains, or as otherwise permitted by law. Any unauthorized further disclosure in violation of state law may result in a fine or penitentiary sentence or both. A general authorization for the release of medical or other information is NOT sufficient authorization for further disc losure. Allergies and Adverse Reactions Type Description Substance Reaction Status Data Source(s ) morphine morphine Morphine Sulfate 15 MG Extended Release Oral Tablet headache, restless Active eCW1 ([facility]) morphine morphine Morphine Sulfate 15 MG Extended Release Oral Tablet headache, restless Active eCW1 ([facility]) morphine morphine Morphine Sulfate 15 MG Extended Release Oral Tablet headache, restless Active eCW1 ([facility]) Encounters Encounter Providers Location Date Indications Data Source(s ) [place] [address] [facility] [address] 06/25/2020 12:00:00 AM EST eCW1 ([facility]) [place] [address] [facility] [address] 06/23/2020 12:00:00 AM EST eCW1 ([facility]) Unknown [address] [facility] [place] [address] 06/19/2020 12:00:00 AM EST eCW1 ([facility]) Unknown [address] [facility] [place] [address] 06/18/2020 12:00:00 AM EST eCW1 ([facility]) (TCM) Transition of Care Visit [address] [place] [address] 06/11/2020 12:00:00 AM EST eCW1 ([facility]) Unknown [address] [facility] [place] [address] 06/05/2020 12:00:00 AM EST eCW1 ([facility]) Unknown [address] [facility] [place] [address] 04/25/2020 12:00:00 AM EST eCW1 ([facility]) Office Visit Attender: Samuel Lyon MD Main office - [place] 04/24/2020 12:45:00 PM EST MEDENT ([facility] ) Outpatient [address] [facility] [place] [address] 04/09/2020 12:00:00 AM EDT eCW1 ([facility]) Outpatient [address] [facility] [place] [address] 03/21/2020 12:00:00 AM EDT eCW1 ([facility]) [place] [address] [facility] [address] 12/04/2019 12:00:00 AM EDT eCW1 ([facility]) Unknown [address] [facility] [place] [address] 11/23/2019 12:00:00 AM EDT eCW1 ([facility]) Outpatient [address] [facility] [place] [address] 11/15/2019 12:00:00 AM EDT eCW1 ([facility]) [address] [address] 11/02/2019 12:00:00 AM EDT eCW1 ([facility]) Outpatient [address] [place] [address] [place] [address] 11/01/2019 12:00:00 AM EDT eCW1 ([facility]) Outpatient Attender: Ann Marie Tolliver/Bryan/Matthew/Alanis nj 10/29/2019 10:30:00 AM EDT MEDENT ([facility] [address] [address] 10/29/2019 12:00:00 AM EDT eCW1 [facility]) Outpatient Attender: Samuel Lyon MD Main office - [place] 10/17/2019 02:00:00 PM EDT MEDENT ([facility] [place]) [address] [address] 10/10/2019 12:00:00 AM EDT eCW1 ([facility]) [address] [place] [address] 10/08/2019 12:00:00 AM EDT eCW1 ([facility]) [address] [place] [address] 10/05/2019 12:00:00 AM EDT eCW1 ([facility]) [address] [address] 10/05/2019 12:00:00 AM EDT eCW1 ([facility]) [address] [place] [address] 10/04/2019 12:00:00 AM EDT eCW1 ([facility]) [address] [place] [address] 10/02/2019 12:00:00 AM EDT eCW1 ([facility]) [address] [address] 10/02/2019 12:00:00 AM EDT eCW1 ([facility]) [address] [place] [address] 10/02/2019 12:00:00 AM EDT eCW1 ([facility] [address] [place] [address] 10/01/2019 12:00:00 AM EDT eCW1 ([facility]) [address] [place] [address] 09/28/2019 12:00:00 AM EDT eCW1 ([facility]) Outpatient Attender: Samuel Lyon MD Main [facility] 09/19/2019 12:45:00 PM EDT MEDENT ([facility], ) [address] [place] [address] 08/22/2019 12:00:00 AM EDT eCW1 ([facility]) [address] [place] [address] 08/22/2019 12:00:00 AM EDT eCW1 ([facility]) [address] [place] [address] 08/22/2019 12:00:00 AM EDT eCW1 ([facility]) [address] [address] 08/04/2019 12:00:00 AM EST eCW1 ([facility]) [address] [place] [address] 07/17/2019 12:00:00 AM EST eCW1 ([facility]) [address] [place] [address] 06/22/2019 12:00:00 AM EST eCW1 ([facility]) Outpatient Attender: Kana Tolliver/Bryan/Matthew/Swathi indl 06/12/2019 09:30:00 AM EST MEDENT ([facility] [address], [facility] [address] 06/01/2019 12:00:00 AM EST eCW1 ([facility]) Immunizations Vaccine Date Status Description Data Source(s) influenza, recombinant, quadrIvalent,injectable, prese rvative free 03/21/2020 12:58:00 PM EDT completed eCW1 ([facility]) influenza, recombinant, quadrIvalent,injectable, prese rvative free 03/21/2020 12:58:00 PM EDT completed eCW1 ([facility]) influenza, recombinant, quadrIvalent,injectable, prese rvative free 03/21/2020 12:58:00 PM EDT completed eCW1 ([facility]) influenza, recombinant, quadrIvalent,injectable, prese rvative free 03/21/2020 12:58:00 PM EDT completed eCW1 ([facility]) influenza, recombinant, quadrIvalent,injectable, prese rvative free 03/21/2020 12:58:00 PM EDT completed eCW1 ([facility]) influenza, recombinant, quadrIvalent,injectable, prese rvative free 03/21/2020 12:58:00 PM EDT completed eCW1 ([facility]) influenza, recombinant, quadrIvalent,injectable, prese rvative free 03/21/2020 12:58:00 PM EDT completed eCW1 ([facility]) influenza, recombinant, quadrIvalent,injectable, prese rvative free 03/21/2020 12:58:00 PM EDT completed eCW1 ([facility]) influenza, recombinant, quadrIvalent,injectable, prese rvative free 03/21/2020 12:58:00 PM EDT completed eCW1 ([facility]) Medications Medication Brand Name Start Date Product Form Dose Route Admi nistrative Instructions Pharmacy Instructions Status Indications Reaction Description Data Source(s) Diclofenac Sodium 50 MG Delayed Release Oral Tablet Diclofen ac Sodium 50 MG 04/09/2020 12:00:00 AM EDT 1.0 {tablet} active Diclofenac Sodium 50 MG eCW1 ([facility]) Diclofenac Sodium 50 MG Delayed Release Oral Tablet Diclofen ac Sodium 50 MG 04/09/2020 12:00:00 AM EDT 1.0 {tablet} active Diclofenac Sodium 50 MG eCW1 ([facility]) Diclofenac Sodium 50 MG Delayed Release Oral Tablet Diclofen ac Sodium 50 MG 04/09/2020 12:00:00 AM EDT 1.0 {tablet} active Diclofenac Sodium 50 MG eCW1 ([facility]) POLYETHYLENE GLYCOL 3350 142 MG/ML Oral Solution [Miralax] M iralax 02/01/2020 12:00:00 AM EDT active Jorge KEEN ([facility], ) Omeprazole 20 MG Delayed Release Oral Capsule Omeprazole 20 MG 11/15/2019 12:00:00 AM EDT active Omeprazo le 20 MG eCW1 ([facility]) Omeprazole 20 MG Delayed Release Oral Capsule Omeprazole 20 MG 11/15/2019 12:00:00 AM EDT active Omeprazo le 20 MG eCW1 ([facility]) Omeprazole 40 MG Delayed Release Oral Capsule Omeprazole 40 MG 11/15/2019 12:00:00 AM EDT active Omeprazo le 40 MG eCW1 ([facility]) Physical Therapy evaluate and treat UNK 11/15/2019 12:00:00 AM EDT active Physical Therapy evaluate and tr eat eCW1 ([facility]) Physical Therapy evaluate and treat UNK 11/15/2019 12:00:00 AM EDT active Physical Therapy evaluate and tr eat eCW1 ([facility]) Omeprazole 20 MG Delayed Release Oral Capsule Omeprazole 20 MG 11/15/2019 12:00:00 AM EDT active Omeprazo le 20 MG eCW1 ([facility]) Omeprazole 40 MG Delayed Release Oral Capsule Omeprazole 40 MG 11/15/2019 12:00:00 AM EDT active Omeprazo le 40 MG eCW1 ([facility]) Physical Therapy evaluate and treat UNK 11/15/2019 12:00:00 AM EDT active Physical Therapy evaluate and tr eat eCW1 ([facility]) Omeprazole 20 MG Delayed Release Oral Capsule Omeprazole 20 MG 11/15/2019 12:00:00 AM EDT active Omeprazo le 20 MG eCW1 ([facility]) Omeprazole 40 MG Delayed Release Oral Capsule Omeprazole 40 MG 11/15/2019 12:00:00 AM EDT active Omeprazo le 40 MG eCW1 ([facility]) Omeprazole 40 MG Delayed Release Oral Capsule Omeprazole 40 MG 11/15/2019 12:00:00 AM EDT active Omeprazo le 40 MG eCW1 ([facility]) Omeprazole 20 MG Delayed Release Oral Capsule Omeprazole 20 MG 11/15/2019 12:00:00 AM EDT active Omeprazo le 20 MG eCW1 ([facility]) Physical Therapy evaluate and treat UNK 11/15/2019 12:00:00 AM EDT active Physical Therapy evaluate and tr eat eCW1 ([facility]) Walker - Walker - 11/01/2019 12:00:00 AM EDT activ e Walker - eCW1 ([facility]) Walker - Walker - 11/01/2019 12:00:00 AM EDT suspe nded Walker - eCW1 ([facility]) Walker - Walker - 11/01/2019 12:00:00 AM EDT activ e Walker - eCW1 ([facility]) Walker - Walker - 11/01/2019 12:00:00 AM EDT activ e Walker - eCW1 ([facility]) Walker - Walker - 11/01/2019 12:00:00 AM EDT activ e Walker - eCW1 ([facility]) Walker - Walker - 11/01/2019 12:00:00 AM EDT activ e Walker - eCW1 ([facility]) Walker - Walker - 11/01/2019 12:00:00 AM EDT activ e Walker - eCW1 ([facility]) Walker - Walker - 11/01/2019 12:00:00 AM EDT activ e Walker - eCW1 ([facility]) Walker - Walker - 11/01/2019 12:00:00 AM EDT activ e as directed eCW1 ([facility]) Walker - Walker - 11/01/2019 12:00:00 AM EDT activ e Walker - eCW1 ([facility]) Walker - Walker - 11/01/2019 12:00:00 AM EDT activ e Walker - eCW1 ([facility]) Walker - Walker - 11/01/2019 12:00:00 AM EDT activ e Walker - eCW1 ([facility]) Walker - Walker - 11/01/2019 12:00:00 AM EDT activ e Walker - eCW1 ([facility]) Walker - Walker - 11/01/2019 12:00:00 AM EDT suspe nded Walker - eCW1 ([facility]) 24 HR venlafaxine 150 MG Extended Releas e Oral Capsule Venlafaxine HCl ER 150 MG Venlafaxine HCl ER 150 MG 10/05/2019 12:00:00 AM EDT active 1 capsule with food eCW1 ([facility]) 24 HR venlafaxine 150 MG Extended Releas e Oral Capsule Venlafaxine HCl ER 150 MG Venlafaxine HCl ER 150 MG 10/05/2019 12:00:00 AM EDT active 1 capsule with food eCW1 ([facility]) 24 HR venlafaxine 150 MG Extended Releas e Oral Capsule Venlafaxine HCl ER 150 MG Venlafaxine HCl ER 150 MG 10/05/2019 12:00:00 AM EDT 1 .0 {capsule_with_food} active Venlafaxine HCl ER 1 50 MG eCW1 ([facility]) 24 HR venlafaxine 150 MG Extended Releas e Oral Capsule Venlafaxine HCl ER 150 MG Venlafaxine HCl ER 150 MG 10/05/2019 12:00:00 AM EDT 1 .0 {capsule_with_food} active Venlafaxine HCl ER 1 50 MG eCW1 ([facility]) 24 HR venlafaxine 150 MG Extended Releas e Oral Capsule Venlafaxine HCl ER 150 MG Venlafaxine HCl ER 150 MG 10/05/2019 12:00:00 AM EDT 1 .0 {capsule_with_food} active Venlafaxine HCl ER 1 50 MG eCW1 ([facility]) 24 HR venlafaxine 150 MG Extended Releas e Oral Capsule Venlafaxine HCl ER 150 MG Venlafaxine HCl ER 150 MG 10/05/2019 12:00:00 AM EDT 1 .0 {capsule_with_food} active Venlafaxine HCl ER 1 50 MG eCW1 ([facility]) 24 HR venlafaxine 150 MG Extended Releas e Oral Capsule Venlafaxine HCl ER 150 MG Venlafaxine HCl ER 150 MG 10/05/2019 12:00:00 AM EDT 1 .0 {capsule_with_food} active Venlafaxine HCl ER 1 50 MG eCW1 ([facility]) 24 HR venlafaxine 150 MG Extended Releas e Oral Capsule Venlafaxine HCl ER 150 MG Venlafaxine HCl ER 150 MG 10/05/2019 12:00:00 AM EDT 1 .0 {capsule_with_food} active Venlafaxine HCl ER 1 50 MG eCW1 ([facility]) 24 HR venlafaxine 150 MG Extended Releas e Oral Capsule Venlafaxine HCl ER 150 MG Venlafaxine HCl ER 150 MG 10/05/2019 12:00:00 AM EDT 1 .0 {capsule_with_food} active Venlafaxine HCl ER 1 50 MG eCW1 ([facility]) 24 HR venlafaxine 150 MG Extended Releas e Oral Capsule Venlafaxine HCl ER 150 MG Venlafaxine HCl ER 150 MG 10/05/2019 12:00:00 AM EDT 1 .0 {capsule_with_food} active Venlafaxine HCl ER 1 50 MG eCW1 ([facility]) 24 HR venlafaxine 150 MG Extended Releas e Oral Capsule Venlafaxine HCl ER 150 MG Venlafaxine HCl ER 150 MG 10/05/2019 12:00:00 AM EDT 1 .0 {capsule_with_food} active Venlafaxine HCl ER 1 50 MG eCW1 ([facility]) 24 HR venlafaxine 150 MG Extended Releas e Oral Capsule Venlafaxine HCl ER 150 MG Venlafaxine HCl ER 150 MG 10/05/2019 12:00:00 AM EDT 1 .0 {capsule_with_food} active Venlafaxine HCl ER 1 50 MG eCW1 ([facility]) 24 HR venlafaxine 150 MG Extended Releas e Oral Capsule Venlafaxine HCl ER 150 MG Venlafaxine HCl ER 150 MG 10/05/2019 12:00:00 AM EDT 1 .0 {capsule_with_food} active Venlafaxine HCl ER 1 50 MG eCW1 ([facility]) 24 HR venlafaxine 150 MG Extended Releas e Oral Capsule Venlafaxine HCl ER 150 MG Venlafaxine HCl ER 150 MG 10/05/2019 12:00:00 AM EDT 1 .0 {capsule_with_food} active Venlafaxine HCl ER 1 50 MG eCW1 ([facility]) 24 HR venlafaxine 150 MG Extended Releas e Oral Capsule Venlafaxine HCl ER 150 MG Venlafaxine HCl ER 150 MG 10/05/2019 12:00:00 AM EDT 1 .0 {capsule_with_food} active Venlafaxine HCl ER 1 50 MG eCW1 ([facility]) Primidone 50 MG Oral Tablet Primidone 09/19/2019 12:00:00 AM EDT ORAL active MEDENT ([facility], ) Fenofibrate 160 MG Oral Tablet Fenofibrate 160 MG 06/22/2019 12:00: 00 AM EST active 1 tab eCW1 ([facility]) Fenofibrate 160 MG Oral Tablet Fenofibrate 160 MG 06/22/2019 12:00: 00 AM EST active 1 tab eCW1 ([facility]) Fenofibrate 160 MG Oral Tablet Fenofibrate 160 MG 06/22/2019 12:00: 00 AM EST active 1 tab eCW1 ([facility]) Fenofibrate 160 MG Oral Tablet Fenofibrate 160 MG 06/22/2019 12:00: 00 AM EST active 1 tab eCW1 ([facility]) Insurance Providers Payer name Policy type / Coverage type Policy ID Covered constitution party ID Covered constitution party's relationship to ramos Policy Ramos Plan Information MEDICARE COMPLETE [id number] SP [id number] MEDICARE COMPLETE-[facility] O [id number] S [id number] [facility] [id number] SP [id number] MEDICARE COMPLETE [id number] SP [id number] MEDICARE [id number] SP [id number] [facility] [id number] SP [id number] [facility] [id number] Problems, Conditions, and Diagnoses Code Display Name Description Problem Type Effective Dates Data Source(s) 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 Problem 06/11/2020 12:00:00 AM EST eCW1 ([facility]) G45.9 [id number] TIA (transient ischemic attack) Problem 06/11/2020 12:00:00 AM EST eCW1 ([facility]) R93.89 [id number] Abnormal chest xray Problem 06/11/2020 12:00 :00 AM EST eCW1 ([facility]) G89.29 Chronic pain Other chronic pain Problem 04/08/2020 12:0 0:00 AM EDT eCW1 ([facility]) E55.9 Vitamin D deficiency Vitamin D deficiency Problem 11/01/2019 12:00:00 AM EDT eCW1 ([facility]) E55.9 Vitamin D deficiency Vitamin D deficiency Problem 11/01/2019 12:00:00 AM EDT eCW1 ([facility]) R63.0 [id number] Decreased appetite Problem 10/10/2019 12:00: 00 AM EDT eCW1 ([facility]) R63.0 56317422 Decreased appetite Problem 10/10/2019 12:00: 00 AM EDT eCW1 ([facility]) 17432850 Diplopia Diplopia Problem 09/19/2019 12:00:00 AM ED T MEDENT ([facility], ) [id number] Essential tremor Essential tremor Problem 09/19/2019 12 :00:00 AM EDT MEDENT ([facility]) [id number] Lesion of ulnar nerve Lesion of ulnar nerve Problem 09/19/2019 12:00:00 AM EDT MEDENT ([facility], ) [id number] Carpal tunnel syndrome of left wrist Car pal tunnel syndrome of left wrist Problem 09/19/2019 12:00:00 AM EDT MEDENT ([facility]) [id number] Lumbar radiculopathy Lumbar radiculopathy Problem 07/18/2019 12:00:00 AM EST MEDENT ([facility], ) 498105003 Low back pain Low back pain Problem 07/18/2019 12:00:00 AM EST MEDENT ([facility], ) 674227883 Spondylolysis Spondylolysis Problem 07/18/2019 12:00:00 AM EST MEDENT ([facility], ) [id number] 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 Problem 07/18/2019 12:00:00 AM EST MEDENT ([facility] ) 58508269 Neck pain Neck pain Problem 07/18/2019 12:00:00 AM ES T MEDENT ([facility], ) [id number] 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 Problem 07/18/2019 12:00:00 AM EST MEDENT ([facility], ) E78.5 Dyslipidemia Dyslipidemia Problem 06/22/2019 12:00:00 A M EST W1 ([facility]) E78.5 [id number] Dyslipidemia Problem 06/22/2019 12:00:00 AM EST W1 ([facility]) I63.9 045085253 Cerebrovascular accident (CVA), unspecifi ed mechanism Problem 06/01/2019 12:00:00 AM EST W1 ([facility]) K21.9 451434002 Gastroesophageal ref lux disease, esophagitis presence not specified Problem 06/01/2019 12:00:00 AM EST eCW1 ([facility]) F32.9 Depressive disorder Depression, unspecified depression type Problem 06/01/2019 12:00:00 AM EST eCW1 ([facility]) K21.9 605752038 Gastroesophageal ref lux disease, esophagitis presence not specified Problem 06/01/2019 12:00:00 AM EST eCW1 ([facility]) F32.9 30153329 Depression, unspecified depression type P roblem 06/01/2019 12:00:00 AM EST [facility]CW1 [facility] [facility]) I63.9 [id number] Cerebrovascular accident (CVA), unspecifi ed mechanism Problem 06/01/2019 12:00:00 AM EST eCW1 ([facility]) Surgeries/Procedures Procedure Description Date Indications Data Source(s) Needle electromyography, each extremity, with related paraspinal areas, when performed, done with nerve conduction, amplitude and latency/velocity study; complete, five or more muscles studied, innervated by three or more nerves or four or more spinal levels (list separately in addition to the code for primary procedure). 07/23/2019 12:00:00 AM EST MEDEN T ([facility], ) Needle electromyography, each extremity, with related paraspinal areas, when performed, done with nerve conduction, amplitude and latency/velocity study; complete, five or more muscles studied, innervated by three or more nerves or four or more spinal levels (list separately in addition to the code for primary procedure). 07/23/2019 12:00:00 AM EST MEDEN T ([facility], ) Nerve Conduction 11-12 Studies 07/23/2019 12:00:00 AM EST MEDENT ([facility], ) MRI SPINAL CANAL CERVICAL W/O CONTRAST MATRL 0 12:00:00 AM EST MEDENT ([facility], ) MRI SPINAL CANAL CERVICAL W/O CONTRAST MATRL 0 12:00:00 AM EST MEDENT ([facility], ) MRI SPINAL CANAL LUMBAR W/O CONTRAST MATERIAL 07/21/19 20 12:00:00 AM EST MEDENT ([facility], ) MRI SPINAL CANAL LUMBAR W/O CONTRAST MATERIAL 07/21/19 20 12:00:00 AM EST MEDENT ([facility], ) Inject/Drain Arthrocentesis Major Joint/Bursa/Ganglion Cyst 06/12/2019 12:00:00 AM EST MEDENT ([facility], ) X-Ray Shoulder Complete 06/12/2019 12:00:00 AM EST MEDENT ([facility], ) Office Visit, New Pt., Level 3 FC 06/01/2019 12:00:00 AM EST eCW1 ([facility]) Office Visit, New Pt., Level 4 FC 06/01/2019 12:00:00 AM EST eCW1 ([facility]) Results ID Date Data Source [id number] 06/21/2020 06:39:00 PM EST [facility] Name Value Range Interpretation Code Description Data Itzel rce(s) Supporting Document(s) SARS coronavirus 2 RNA [Presence] in Res piratory specimen by MICHAEL with probe detection NEGATIVE [facility] This lab was ordered by [facility] a nd reported by [facility]. ID Date Data Source [id number] 06/01/2020 06:11:00 PM EST [facility] Name Value Range Interpretation Code Description Data Itzel rce(s) Supporting Document(s) SARS coronavirus 2 RNA [Presence] in Res piratory specimen by MICHAEL with probe detection [facility] This lab was ordered by [facility] a nd reported by [facility]. ID Date Data Source [id number] 01/02/2020 10:00:00 AM EDT [facility] Name Value Range Interpretation Code Description Data Itzel rce(s) Supporting Document(s) SARS coronavirus 2 RNA [facility] This lab was ordered by [facility] and reported by [facility]. ID Date Data Source [id number] 10/01/2019 09:06:00 AM EDT MEDENT ([facility], ) Name Value Range Interpretation Code Description Data Itzel rce(s) Supporting Document(s) Acetylcholine receptor Ab [Units/volume] in Serum Laboratory test result 0.00-0.24 MEDENT ([facility]) Negative: 0.00 - 0.24 Borderline: 0.25 - 0.40 Positive: >0.40 Acetylcholine receptor blocking Ab [Units/volume] in Serum 20 % 0-25 [facility] ([facility]) Results verified by repeat testing Negative: 0 - 25 Borderline: 26 - 30 Positive: >30 Thiamine [Mass/volume] in Blood 173.8 nmol/L 66.5-200.0 [facility] ([facility]) Performed at: [address] [id number] Mobility Architect Manager: Og Velarde MD, Phone: [phone] Acetylcholine receptor modulation Ab [Units/volume] in Serum Laboratory test result 0-20 [facility] ([facility]) <content>Negative: <21</content>
<content>Equivocal: 21 - 25</content>
<content>Positive: >25</content>
<content>The assay is linear between values of 12 and 64.</content>
<content>Those <12 and >64 are reported as such. No single</content>
<content>value for ACR- modulating antibody should be used as</content>
<content>a sole basis for diagnosis or response to therapy.</content>
<content></content> Pyridoxine [Mass/volume] in Serum or Plasma 15.6 ug/L 2.0-32.8 [facility] Specimen Comment: Test(s) 812322-[id number] B6; 990602-Bwo. B1, Whole Blood Specimen Comment: was developed and its performance characteristics Specimen Comment: determined by [email or web address]. It has not been cleared or approved Specimen Comment: by the Food and Drug Administration. Specimen Comment: Test(s) 862030-Ckdswhj E(Alpha Tocopherol); 089976- Specimen Comment: Vitamin E(Gamma Tocopherol) Specimen Comment: was developed and its performance characteristics Specimen Comment: determined by [facility]. It has not been cleared or approved Specimen Comment: by the Food and Drug Administration. Specimen Comment: Test(s) 605129-FPjA Blocking Abs, Serum Specimen Comment: results are labeled for research purposes only by the Specimen Comment: assay's director of trauma. The performance characteristics of Specimen Comment: this assay have not been established by the director of trauma. Specimen Comment: The result should not be used for treatment or for Specimen Comment: diagnostic purposes without confirmation of the diagnosis Specimen Comment: by another medically established diagnostic product or Specimen Comment: procedure. The performance characteristics were determined Specimen Comment: by [facility]. Striated muscle Ab [Presence] in Serum Laboratory test result [facility] ([facility], ) Performed at: [facility] [address] [id number] Mobility Architect Manager: Og Velarde MD, Phone: [phone] Performed at: [employer] [address] [place] [id number] Mobility Architect Manager: Soren Rios MD, Phone: [phone] Performed at: [facility] [address] [id number] Mobility Architect Manager: Shena Lau MD, Phone: [phone] Muscle specific receptor tyrosine kinase Ab [Titer] in Serum or Plasma Laboratory test result [facility]) <content>Reference Range:</content>
<content>Negative: <1.0</content>
<content>Positive: 1.0 or higher</content>
<content>A positive result, in the context of congruent clinical</content>
<content>findings, confirms the diagnosis of autoimmune MuSK</content>
<content>myasthenia gravis.</content>
<content>COMMENTS:</content>
<content>- Myasthenia gravis (MG) is caused by auto-antibodies</content>
<content>against proteins of the neuromuscular junction. Most</content>
<content>cases (about 90%) of generalized MG are anti-</content>
<content>acetylcholine receptor (AChR) antibody-positive.(1)</content>
<content>- Of generalized MG patients who lack anti-AChR antibodies</content>
<content>(AChR-seronegative), about 40% are positive for Muscle-</content>
<content>Specific Kinase (MuSK) antibody.(1,2)</content>
<content>- Though a positive MuSK result is specific for the</content>
<content>diagnosis of MuSK MG, a negative MuSK result does not</content>
<content>rule out a MG diagnosis.</content>
<content>- MuSK antibody levels have been shown to correlate with</content>
<content>disease severity.(3) Serial measurements may be useful</content>
<content>to follow treatment.</content>
<content>References:</content>
<content>1. Nahomi- Hima S et al. J Autoimmunity 2014;52:90-100.</content>
<content>2. Huijbers MG et al. PNAS 2013;110(59);00521-94911.</content>
<content>3. Jay Donis et al. Neurology 2006;67:505-507.</content>
<content>This test was developed and its performance characteristics</content>
<content>determined by [facility]. It has not been cleared or approved</content>
<content>by the Food and Drug Administration.</content>
<content></content> ID Date Data Source [id number] 10/01/2019 09:06:00 AM EDT [facility] Name Value Range Interpretation Code Description Data Itzel rce(s) Supporting Document(s) Vitamin E(Gamma Tocopherol) 0.3 mg/L 0.5-4.9 [facility] Reference intervals for alpha and gamma- tocopherol determined from National Health and Nutrition Examination Survey, 4588-0351. Individuals with alpha-tocopherol levels less than 5.0 mg/L are considered vitamin E deficient. Vitamin E(Alpha Tocopherol) 12.8 mg/L 9.0-29.0 MED[facility] ([facility], ) ID Date Data Source [id number] 10/01/2019 09:06:00 AM EDT [facility] Name Value Range Interpretation Code Description Data Itzel rce(s) Supporting Document(s) Vitamin B12 Level Laboratory test result [facility] ([facility], ) VITAMIN B12 NORMAL RANGE NORMAL 247 - 911 PG/ML INDETERMINATE 211 - 246 PG/ML DEFICIENT LESS THAN 211 PG/ML Folate Laboratory test result [facility] ([facility], ) FOLATE NORMAL RANGE NORMAL GREATER THAN 5.4 NG/ML INDETERMINATE 3.4-5.4 NG/ML DEFICIENT LESS THAN 3.4 NG/ML Procedure Social History Code Duration Value Status Description Data Source(s ) Smoking 06/11/2020 12:00:00 AM EST Never Smoker completed Never S moker eCW1 ([facility]) Smoking 06/11/2020 12:00:00 AM EST Never Smoker completed Never S moker eCW1 ([facility]) Smoking 06/11/2020 12:00:00 AM EST Never Smoker completed Never S moker eCW1 ([facility]) Smoking 06/11/2020 12:00:00 AM EST Never Smoker completed Never S moker eCW1 ([facility]) Smoking 06/11/2020 12:00:00 AM EST Never Smoker completed Never S moker eCW1 ([facility]) Smoking 04/09/2020 12:00:00 AM EDT Never Smoker completed Never S moker eCW1 ([facility]) Smoking 04/09/2020 12:00:00 AM EDT Never Smoker completed Never S moker eCW1 ([facility]) Smoking 04/09/2020 12:00:00 AM EDT Never Smoker completed Never S moker eCW1 ([facility]) Smoking 03/21/2020 12:00:00 AM EDT Never Smoker completed Never S moker eCW1 ([facility]) Smoking 11/15/2019 12:00:00 AM EDT Never Smoker completed Never S moker eCW1 ([facility]) Smoking 11/15/2019 12:00:00 AM EDT Never Smoker completed Never S moker eCW1 ([facility]) Smoking 11/15/2019 12:00:00 AM EDT Never Smoker completed Never S moker eCW1 ([facility]) Smoking 11/15/2019 12:00:00 AM EDT Never Smoker completed Never S moker eCW1 ([facility]) Vital Signs ID Date Data Source UNK Name Value Range Interpretation Code Description Data Source(s) Diastolic blood pressure 60 mm[Hg] 60 mm[Hg] eCW1 ([facility]) Systolic blood pressure 133 mm[Hg] 133 mm[Hg] e CW1 ([facility]) Body temperature 97.2 [degF] 97.2 [degF] eCW1 ( [facility]) Respiratory rate 18 /min 18 /min eCW1 ([facility]) Heart rate 60 /min 60 /min eCW1 ([facility]) Body mass index (BMI) [Ratio] 20.30 kg/m2 20.30 kg/m2 eCW1 ([facility]) Body height 62 [in_i] 62 [in_i] eCW1 ([facility]) Body weight 111 [lb_av] 111 [lb_av] eCW1 ([facility]) Diastolic blood pressure 60 mm[Hg] 60 mm[Hg] eCW1 ([facility]) Systolic blood pressure 140 mm[Hg] 140 mm[Hg] e CW1 ([facility]) Body temperature 96.6 [degF] 96.6 [degF] eCW1 ( [facility]) Respiratory rate 18 /min 18 /min eCW1 ([facility]) Heart rate 69 /min 69 /min eCW1 ([facility]) Body mass index (BMI) [Ratio] 21.29 kg/m2 21.29 kg/m2 eCW1 ([facility]) Body height 62 [in_i] 62 [in_i] eCW1 ([facility]) Body weight 116.4 [lb_av] 116.4 [lb_av] eCW1 ([facility]) Diastolic blood pressure 71 mm[Hg] 71 mm[Hg] eCW1 ([facility]) Systolic blood pressure 150 mm[Hg] 150 mm[Hg] e CW1 ([facility]) Body temperature 98.7 [degF] 98.7 [degF] eCW1 ( [facility]) Respiratory rate 18 /min 18 /min eCW1 ([facility]) Heart rate 63 /min 63 /min eCW1 ([facility]) Body mass index (BMI) [Ratio] 20.67 kg/m2 20.67 kg/m2 eCW1 ([facility]) Body height 62 [in_i] 62 [in_i] eCW1 ([facility]) Body weight [lb_av] eCW1 ([facility]) Body weight 50.576 kg 50.576 kg [facility] Body mass index (BMI) [Ratio] 20.4 kg/m2 20.4 k g/m2 MEDENT ([facility], ) Body weight 111.50 [lb_av] 111.50 [lb_av] [facility] Body height 62 [in_i] 62 [in_i] [facility] ([facility]) 5'2" Diastolic blood pressure 68 mm[Hg] 68 mm[Hg] [facility] ([facility]) Systolic blood pressure 120 mm[Hg] 120 mm[Hg] [facility] Body weight 51.257 kg 51.257 kg [facility] ([facility]) Body mass index (BMI) [Ratio] 20.7 kg/m2 20.7 k g/m2 [facility] ([facility]) Body weight 113.00 [lb_av] 113.00 [lb_av] [facility] Body height 62 [in_i] 62 [in_i] [facility] ([facility]) 5'2" Diastolic blood pressure 60 mm[Hg] 60 mm[Hg] [facility] ([facility]) Systolic blood pressure 112 mm[Hg] 112 mm[Hg] [facility] Diastolic blood pressure 72 mm[Hg] 72 mm[Hg] eCW1 ([facility]) Systolic blood pressure 108 mm[Hg] 108 mm[Hg] e CW1 ([facility]) Body temperature 98.4 [degF] 98.4 [degF] eCW1 ( [facility]) Respiratory rate 18 /min 18 /min eCW1 ([facility]) Heart rate 77 /min 77 /min eCW1 ([facility]) Body mass index (BMI) [Ratio] 20.48 kg/m2 20.48 kg/m2 W1 ([facility]) Body height [in_i] eCW1 ([facility]) Body weight 112 [lb_av] 112 [lb_av] eCW1 ([facility]) Diastolic blood pressure 84 mm[Hg] 84 mm[Hg] eCW1 ([facility]) Systolic blood pressure 130 mm[Hg] 130 mm[Hg] e CW1 ([facility]) Body temperature 99.0 [degF] 99.0 [degF] eCW1 ( [facility]) Respiratory rate 18 /min 18 /min eCW1 ([facility]) Heart rate 77 /min 77 /min eCW1 ([facility]) Body mass index (BMI) [Ratio] 20.12 kg/m2 20.12 kg/m2 eCW1 ([facility]) Body height [in_i] eCW1 ([facility]) Body weight 110 [lb_av] 110 [lb_av] eCW1 ([facility]) Body weight 49.216 kg 49.216 kg MEDENT ([facility], ) Body mass index (BMI) [Ratio] 19.8 kg/m2 19.8 k g/m2 MEDENT ([facility], ) Body weight 108.50 [lb_av] 108.50 [lb_av] MEDEN T ([facility], ) Body height 62 [in_i] 62 [in_i] MEDENT ([facility], ) 5'2" Diastolic blood pressure 68 mm[Hg] 68 mm[Hg] MEDENT ([facility]) Systolic blood pressure 108 mm[Hg] 108 mm[Hg] M EDENT ([facility]) Diastolic blood pressure 79 mm[Hg] 79 mm[Hg] eCW1 ([facility]) Systolic blood pressure 139 mm[Hg] 139 mm[Hg] e CW1 ([facility]) Body temperature 98.4 [degF] 98.4 [degF] eCW1 ( [facility]) Respiratory rate 20 /min 20 /min eCW1 ([facility]) Heart rate 72 /min 72 /min eCW1 ([facility]) Body mass index (BMI) [Ratio] 20.48 kg/m2 20.48 kg/m2 eCW1 ([facility]) Body height [in_us] eCW1 ([facility]) Body weight Measured 112 [lb_av] 112 [lb_av] eC W1 ([facility]) [place] body weight 110 [lb_av] 110 [lb_av] MEDEN T ([facility], ) Body mass index (BMI) [Ratio] 21.0 kg/m2 21.0 k g/m2 MEDENT ([facility]) Body weight 115.00 [lb_av] 115.00 [lb_av] MEDEN T ([facility]) Body height 62 [in_i] 62 [in_i] MEDENT ([facility], ) 5'2" Respiratory rate 14 /min 14 /min MEDENT ( [facility]) Heart rate 70 /min 70 /min MED[facility] ([facility]) Diastolic blood pressure 70 mm[Hg] 70 mm[Hg] MEDENT ([facility]) Systolic blood pressure 120 mm[Hg] 120 mm[Hg] M EDENT ([facility]) Diastolic blood pressure 67 mm[Hg] 67 mm[Hg] eCW1 ([facility]) Systolic blood pressure 140 mm[Hg] 140 mm[Hg] e CW1 ([facility]) Body temperature 98.3 [degF] 98.3 [degF] eCW1 ( [facility]) Respiratory rate 20 /min 20 /min eCW1 ([facility]) Heart rate 93 /min 93 /min eCW1 ([facility]) Body mass index (BMI) [Ratio] 21.40 kg/m2 21.40 kg/m2 eCW1 ([facility]) Body height [in_us] eCW1 ([facility]) Body weight Measured 117 [lb_av] 117 [lb_av] eC W1 ([facility]) Body weight 52.164 kg 52.164 kg MED[facility] ([facility], ) Body mass index (BMI) [Ratio] 21.0 kg/m2 21.0 k g/m2 MED[facility] ([facility], ) Body weight 115.00 [lb_av] 115.00 [lb_av] MEDEN T ([facility], ) Body height 62 [in_i] 62 [in_i] MED[facility] ([facility], ) 5'2" Body temperature 97.9 [degF] 97.9 [degF] MEDENT ([facility], ) Diastolic blood pressure 68 mm[Hg] 68 mm[Hg] eCW1 ([facility]) Systolic blood pressure 122 mm[Hg] 122 mm[Hg] e CW1 ([facility]) Body temperature 98 [degF] 98 [degF] eCW1 ([facility]) Respiratory rate 20 /min 20 /min eCW1 ([facility]) Heart rate 66 /min 66 /min eCW1 ([facility]) Body mass index (BMI) [Ratio] 21.03 kg/m2 21.03 kg/m2 eCW1 ([facility]) Body height [in_us] eCW1 ([facility]) Body weight Measured 115 [lb_av] 115 [lb_av] eC W1 ([facility]) Patient Treatment Plan of Care Planned Activity Planned Date Details Description Data Source (s) Diclofenac Sodium 50 MG Delayed Release Oral Tablet 04/09/20 12:00:00 AM EDT eCW1 ([facility]) Diclofenac Sodium 50 MG Delayed Release Oral Tablet 04/09/20 12:00:00 AM EDT eCW1 ([facility]) Omeprazole 20 MG Delayed Release Oral Capsule 11/15/2019 12:00:00 A M EDT eCW1 ([facility]) Omeprazole 20 MG Delayed Release Oral Capsule 11/15/2019 12:00:00 A M EDT eCW1 ([facility]) Physical Therapy evaluate and treat 11/15/2019 12:00:00 AM EDT eCW1 ([facility]) Omeprazole 40 MG Delayed Release Oral Capsule 11/15/2019 12:00:00 A M EDT eCW1 ([facility]) Physical Therapy evaluate and treat 11/15/2019 12:00:00 AM EDT eCW1 ([facility]) Omeprazole 40 MG Delayed Release Oral Capsule 11/15/2019 12:00:00 A M EDT eCW1 ([facility]) Physical Therapy evaluate and treat 11/15/2019 12:00:00 AM EDT eCW1 ([facility]) Omeprazole 40 MG Delayed Release Oral Capsule 11/15/2019 12:00:00 A M EDT eCW1 ([facility]) Physical Therapy evaluate and treat 11/15/2019 12:00:00 AM EDT eCW1 ([facility]) Omeprazole 40 MG Delayed Release Oral Capsule 11/15/2019 12:00:00 A M EDT eCW1 ([facility]) Walker - 11/01/2019 12:00:00 AM EDT e CW1 ([facility]) Walker - 11/01/2019 12:00:00 AM EDT e CW1 ([facility]) Walker - 11/01/2019 12:00:00 AM EDT e CW1 ([facility]) Walker - 11/01/2019 12:00:00 AM EDT e CW1 ([facility]) Walker - 11/01/2019 12:00:00 AM EDT e CW1 ([facility]) Walker - 11/01/2019 12:00:00 AM EDT e CW1 ([facility]) Walker - 11/01/2019 12:00:00 AM EDT e CW1 ([facility]) Walker - 11/01/2019 12:00:00 AM EDT e CW1 ([facility]) Walker - 11/01/2019 12:00:00 AM EDT e CW1 ([facility]) Walker - 11/01/2019 12:00:00 AM EDT e CW1 ([facility]) 24 HR venlafaxine 150 MG Extended Release Oral Capsule 10/05/2019 12:00:00 AM EDT eCW1 ([facility]) 24 HR venlafaxine 150 MG Extended Release Oral Capsule 10/05/2019 12:00:00 AM EDT eCW1 ([facility]) 24 HR venlafaxine 150 MG Extended Release Oral Capsule 10/05/2019 12:00:00 AM EDT eCW1 ([facility]) 24 HR venlafaxine 150 MG Extended Release Oral Capsule 10/05/2019 12:00:00 AM EDT eCW1 ([facility]) 24 HR venlafaxine 150 MG Extended Release Oral Capsule 10/05/2019 12:00:00 AM EDT eCW1 ([facility]) 24 HR venlafaxine 150 MG Extended Release Oral Capsule 10/05/2019 12:00:00 AM EDT eCW1 ([facility]) 24 HR venlafaxine 150 MG Extended Release Oral Capsule 10/05/2019 12:00:00 AM EDT eCW1 ([facility]) 24 HR venlafaxine 150 MG Extended Release Oral Capsule 10/05/2019 12:00:00 AM EDT eCW1 ([facility]) 24 HR venlafaxine 150 MG Extended Release Oral Capsule 10/05/2019 12:00:00 AM EDT eCW1 ([facility]) 24 HR venlafaxine 150 MG Extended Release Oral Capsule 10/05/2019 12:00:00 AM EDT eCW1 ([facility]) Fenofibrate 160 MG Oral Tablet 06/22/2019 12:00:00 AM EST eCW1 ([facility]) Fenofibrate 160 MG Oral Tablet 06/22/2019 12:00:00 AM EST eCW1 ([facility]) Fenofibrate 160 MG Oral Tablet 06/22/2019 12:00:00 AM EST eCW1 ([facility])
[2020-06-29] MEDS ORDERED: ONDANSETRON 4MG/2ML VIAL IV ONE (18:30)
[2020-06-29] MEDS ORDERED: NS 1,000 ML IV ONE (18:30)
[2020-06-29] MEDS ORDERED: ONDANSETRON 4MG/2ML VIAL As Ordered ONE (18:32)
--- OUTSIDE RECORDS SUMMARY | 2020-06-29 18:41 | CCD ---
Author Author [facility] Organization [facility] Address Unknown Phone Unavailable Care Team Providers Care Air Traffic Controller Name Role Phone Lesley Miles MD Unavailable [...] is protected by Article 27-F of the [facility] Public Health law. If you continue you may have access to information: Regarding HIV / AIDS; Provided by facilities licensed or operated by the [facility] Office of Mental Health; or Provided by the [facility] Office for People With Developmental Disabilities. If such information is present, then the following [facility] mandated warning applies: This information has been [...] law may result in a fine or half-way sentence or both. A general authorization for the release of medical or other information is NOT sufficient authorization for further disc losure. Allergies and Adverse Reactions Type Description Substance Reaction Status Data Source(s ) morphine morphine Morphine Sulfate 15 MG Extended Release Oral Tablet headache, restless Active eCW1 ([facility]) morphine morphine Morphine Sulfate 15 MG Extended Release Oral Tablet headache, restless Active eCW1 ([facility]) morphine morphine Morphine Sulfate 15 MG Extended Release Oral Tablet headache, restless Active eCW1 ([facility]) Encounters Encounter Providers Location Date Indications Data Source(s ) Unknown [address] [facility] [address] 06/25/2020 12:00:00 AM EST eCW1 ([facility]) Unknown [address] [facility] [address] 06/23/2020 12:00:00 AM EST eCW1 ([facility]) Unknown [address] [facility] [place] [address] 06/19/2020 12:00:00 AM EST eCW1 ([facility]) Unknown [address] [facility] [place] [address] 06/18/2020 12:00:00 AM EST eCW1 ([facility]) (TCM) Transition of Care Visit [address] [place] [address] 06/11/2020 12:00:00 AM EST eCW1 ([facility]) Unknown [address] [facility] [place] [address] 06/05/2020 12:00:00 AM EST eCW1 ([facility]) Unknown [address] [facility] [place] [address] 04/25/2020 12:00:00 AM EST eCW1 ([facility]) Office Visit Attender: Samuel Lyon MD Main office - [place] 04/24/2020 12:45:00 PM EST MEDENT ([facility] ) Outpatient [address] [facility] [place] [address] 04/09/2020 12:00:00 AM EDT eCW1 ([facility]) Outpatient [address] [facility] [place] [address] 03/21/2020 12:00:00 AM EDT eCW1 ([facility]) Unknown [address] [facility] [address] 12/04/2019 12:00:00 AM EDT eCW1 ([facility]) Unknown [address] [facility] [place] [address] 11/23/2019 12:00:00 AM EDT eCW1 ([facility]) Outpatient [address] [facility] [place] [address] 11/15/2019 12:00:00 AM EDT eCW1 ([facility]) [address] [address] 11/02/2019 12:00:00 AM EDT eCW1 ([facility]) Outpatient [address] [place] [address] [place] [address] 11/01/2019 12:00:00 AM EDT eCW1 ([facility]) Outpatient Attender: Ann Marie Tolliver/Bryan/Matthew/Alanis nj 10/29/2019 10:30:00 AM EDT MEDENT ([facility]) [address] [address] 10/29/2019 12:00:00 AM EDT eCW1 [facility]) Outpatient Attender: Samuel Lyon MD Main office - [place] 10/17/2019 02:00:00 PM EDT MEDENT ([facility], [place]) [address] [address] 10/10/2019 12:00:00 AM EDT eCW1 ([facility]) [address] [place] [address] 10/08/2019 12:00:00 AM EDT eCW1 ([facility]) [address] [place] [address] 10/05/2019 12:00:00 AM EDT eCW1 ([facility]) [address] [address] 10/05/2019 12:00:00 AM EDT eCW1 ([facility]) [address] [place] [address] 10/04/2019 12:00:00 AM EDT eCW1 ([facility]) [address] [place] [address] 10/02/2019 12:00:00 AM EDT eCW1 ([facility]) [address] [address] 10/02/2019 12:00:00 AM EDT eCW1 ([facility]) [address] [place] [address] 10/02/2019 12:00:00 AM EDT eCW1 ([facility]) [facility] [address] [place] [address] 10/01/2019 12:00:00 AM EDT eCW1 ([facility]) [address] [place] [address] 09/28/2019 12:00:00 AM EDT eCW1 ([facility]) Outpatient Attender: Samuel Lyon MD Main [facility] 09/19/2019 12:45:00 PM EDT MEDENT ([facility], ) [address] [place] [address] 08/22/2019 12:00:00 AM EDT eCW1 ([facility]) [address] [place] [address] 08/22/2019 12:00:00 AM EDT eCW1 ([facility]) [address] [place] [address] 08/22/2019 12:00:00 AM EDT eCW1 ([facility]) [address] [address] 08/04/2019 12:00:00 AM EST eCW1 ([facility]) [address] [place] [address] 07/17/2019 12:00:00 AM EST eCW1 ([facility]) [address] [place] [address] 06/22/2019 12:00:00 AM EST eCW1 ([facility]) Outpatient Attender: Kana Tolliver/Bryan/Matthew/Swathi indl 06/12/2019 09:30:00 AM EST MEDENT ([facility] [address], [facility] [address] 06/01/2019 12:00:00 AM EST eCW1 ([facility]) Immunizations Vaccine Date Status Description Data Source(s) influenza, recombinant, quadrIvalent,injectable, prese rvative free 03/21/2020 12:58:00 PM EDT completed eCW1 ([facility]) influenza, recombinant, quadrIvalent,injectable, prese rvative free 03/21/2020 12:58:00 PM EDT completed eCW1 ([facility]) influenza, recombinant, quadrIvalent,injectable, prese rvative free 03/21/2020 12:58:00 PM EDT completed eCW1 ([facility]) influenza, recombinant, quadrIvalent,injectable, prese rvative free 03/21/2020 12:58:00 PM EDT completed eCW1 ([facility]) influenza, recombinant, quadrIvalent,injectable, prese rvative free 03/21/2020 12:58:00 PM EDT completed eCW1 ([facility]) influenza, recombinant, quadrIvalent,injectable, prese rvative free 03/21/2020 12:58:00 PM EDT completed eCW1 ([facility]) influenza, recombinant, quadrIvalent,injectable, prese rvative free 03/21/2020 12:58:00 PM EDT completed eCW1 ([facility]) influenza, recombinant, quadrIvalent,injectable, prese rvative free 03/21/2020 12:58:00 PM EDT completed eCW1 ([facility]) influenza, recombinant, quadrIvalent,injectable, prese rvative free 03/21/2020 12:58:00 PM EDT completed eCW1 ([facility]) Medications Medication Brand Name Start Date Product Form Dose Route Admi nistrative Instructions Pharmacy Instructions Status Indications Reaction Description Data Source(s) Diclofenac Sodium 50 MG Delayed Release Oral Tablet Diclofen ac Sodium 50 MG 04/09/2020 12:00:00 AM EDT 1.0 {tablet} active Diclofenac Sodium 50 MG eCW1 ([facility]) Diclofenac Sodium 50 MG Delayed Release Oral Tablet Diclofen ac Sodium 50 MG 04/09/2020 12:00:00 AM EDT 1.0 {tablet} active Diclofenac Sodium 50 MG eCW1 ([facility]) Diclofenac Sodium 50 MG Delayed Release Oral Tablet Diclofen ac Sodium 50 MG 04/09/2020 12:00:00 AM EDT 1.0 {tablet} active Diclofenac Sodium 50 MG eCW1 ([facility]) POLYETHYLENE GLYCOL 3350 142 MG/ML Oral Solution [Miralax] M iralax 02/01/2020 12:00:00 AM EDT active Jorge KEEN ([facility] ) Omeprazole 20 MG Delayed Release Oral Capsule Omeprazole 20 MG 11/15/2019 12:00:00 AM EDT active Omeprazo le 20 MG eCW1 ([facility]) Omeprazole 20 MG Delayed Release Oral Capsule Omeprazole 20 MG 11/15/2019 12:00:00 AM EDT active Omeprazo le 20 MG eCW1 ([facility]) Omeprazole 40 MG Delayed Release Oral Capsule Omeprazole 40 MG 11/15/2019 12:00:00 AM EDT active Omeprazo le 40 MG eCW1 ([facility]) Physical Therapy evaluate and treat UNK 11/15/2019 12:00:00 AM EDT active Physical Therapy evaluate and tr eat eCW1 ([facility]) Physical Therapy evaluate and treat UNK 11/15/2019 12:00:00 AM EDT active Physical Therapy evaluate and tr eat eCW1 ([facility]) Omeprazole 20 MG Delayed Release Oral Capsule Omeprazole 20 MG 11/15/2019 12:00:00 AM EDT active Omeprazo le 20 MG eCW1 ([facility]) Omeprazole 40 MG Delayed Release Oral Capsule Omeprazole 40 MG 11/15/2019 12:00:00 AM EDT active Omeprazo le 40 MG eCW1 ([facility]) Physical Therapy evaluate and treat UNK 11/15/2019 12:00:00 AM EDT active Physical Therapy evaluate and tr eat eCW1 ([facility]) Omeprazole 20 MG Delayed Release Oral Capsule Omeprazole 20 MG 11/15/2019 12:00:00 AM EDT active Omeprazo le 20 MG eCW1 ([facility]) Omeprazole 40 MG Delayed Release Oral Capsule Omeprazole 40 MG 11/15/2019 12:00:00 AM EDT active Omeprazo le 40 MG eCW1 ([facility]) Omeprazole 40 MG Delayed Release Oral Capsule Omeprazole 40 MG 11/15/2019 12:00:00 AM EDT active Omeprazo le 40 MG eCW1 ([facility]) Omeprazole 20 MG Delayed Release Oral Capsule Omeprazole 20 MG 11/15/2019 12:00:00 AM EDT active Omeprazo le 20 MG eCW1 ([facility]) Physical Therapy evaluate and treat UNK 11/15/2019 12:00:00 AM EDT active Physical Therapy evaluate and tr eat eCW1 ([facility]) Walker - Walker - 11/01/2019 12:00:00 AM EDT activ e Walker - eCW1 ([facility]) Walker - Walker - 11/01/2019 12:00:00 AM EDT suspe nded Walker - eCW1 ([facility]) Walker - Walker - 11/01/2019 12:00:00 AM EDT activ e Walker - eCW1 ([facility]) Walker - Walker - 11/01/2019 12:00:00 AM EDT activ e Walker - eCW1 ([facility]) Walker - Walker - 11/01/2019 12:00:00 AM EDT activ e Walker - eCW1 ([facility]) Walker - Walker - 11/01/2019 12:00:00 AM EDT activ e Walker - eCW1 ([facility]) Walker - Walker - 11/01/2019 12:00:00 AM EDT activ e Walker - eCW1 ([facility]) Walker - Walker - 11/01/2019 12:00:00 AM EDT activ e Walker - eCW1 ([facility]) Walker - Walker - 11/01/2019 12:00:00 AM EDT activ e as directed eCW1 ([facility]) Walker - Walker - 11/01/2019 12:00:00 AM EDT activ e Walker - eCW1 ([facility]) Walker - Walker - 11/01/2019 12:00:00 AM EDT activ e Walker - eCW1 ([facility]) Walker - Walker - 11/01/2019 12:00:00 AM EDT activ e Walker - eCW1 ([facility]) Walker - Walker - 11/01/2019 12:00:00 AM EDT activ e Walker - eCW1 ([facility]) Walker - Walker - 11/01/2019 12:00:00 AM EDT suspe nded Walker - eCW1 ([facility]) 24 HR venlafaxine 150 MG Extended Releas e Oral Capsule Venlafaxine HCl ER 150 MG Venlafaxine HCl ER 150 MG 10/05/2019 12:00:00 AM EDT active 1 capsule with food eCW1 ([facility]) 24 HR venlafaxine 150 MG Extended Releas e Oral Capsule Venlafaxine HCl ER 150 MG Venlafaxine HCl ER 150 MG 10/05/2019 12:00:00 AM EDT active 1 capsule with food eCW1 ([facility]) 24 HR venlafaxine 150 MG Extended Releas e Oral Capsule Venlafaxine HCl ER 150 MG Venlafaxine HCl ER 150 MG 10/05/2019 12:00:00 AM EDT 1 .0 {capsule_with_food} active Venlafaxine HCl ER 1 50 MG eCW1 ([facility]) 24 HR venlafaxine 150 MG Extended Releas e Oral Capsule Venlafaxine HCl ER 150 MG Venlafaxine HCl ER 150 MG 10/05/2019 12:00:00 AM EDT 1 .0 {capsule_with_food} active Venlafaxine HCl ER 1 50 MG eCW1 ([facility]) 24 HR venlafaxine 150 MG Extended Releas e Oral Capsule Venlafaxine HCl ER 150 MG Venlafaxine HCl ER 150 MG 10/05/2019 12:00:00 AM EDT 1 .0 {capsule_with_food} active Venlafaxine HCl ER 1 50 MG eCW1 ([facility]) 24 HR venlafaxine 150 MG Extended Releas e Oral Capsule Venlafaxine HCl ER 150 MG Venlafaxine HCl ER 150 MG 10/05/2019 12:00:00 AM EDT 1 .0 {capsule_with_food} active Venlafaxine HCl ER 1 50 MG eCW1 ([facility]) 24 HR venlafaxine 150 MG Extended Releas e Oral Capsule Venlafaxine HCl ER 150 MG Venlafaxine HCl ER 150 MG 10/05/2019 12:00:00 AM EDT 1 .0 {capsule_with_food} active Venlafaxine HCl ER 1 50 MG eCW1 ([facility]) 24 HR venlafaxine 150 MG Extended Releas e Oral Capsule Venlafaxine HCl ER 150 MG Venlafaxine HCl ER 150 MG 10/05/2019 12:00:00 AM EDT 1 .0 {capsule_with_food} active Venlafaxine HCl ER 1 50 MG eCW1 ([facility]) 24 HR venlafaxine 150 MG Extended Releas e Oral Capsule Venlafaxine HCl ER 150 MG Venlafaxine HCl ER 150 MG 10/05/2019 12:00:00 AM EDT 1 .0 {capsule_with_food} active Venlafaxine HCl ER 1 50 MG eCW1 ([facility]) 24 HR venlafaxine 150 MG Extended Releas e Oral Capsule Venlafaxine HCl ER 150 MG Venlafaxine HCl ER 150 MG 10/05/2019 12:00:00 AM EDT 1 .0 {capsule_with_food} active Venlafaxine HCl ER 1 50 MG eCW1 ([facility]) 24 HR venlafaxine 150 MG Extended Releas e Oral Capsule Venlafaxine HCl ER 150 MG Venlafaxine HCl ER 150 MG 10/05/2019 12:00:00 AM EDT 1 .0 {capsule_with_food} active Venlafaxine HCl ER 1 50 MG eCW1 ([facility]) 24 HR venlafaxine 150 MG Extended Releas e Oral Capsule Venlafaxine HCl ER 150 MG Venlafaxine HCl ER 150 MG 10/05/2019 12:00:00 AM EDT 1 .0 {capsule_with_food} active Venlafaxine HCl ER 1 50 MG eCW1 ([facility]) 24 HR venlafaxine 150 MG Extended Releas e Oral Capsule Venlafaxine HCl ER 150 MG Venlafaxine HCl ER 150 MG 10/05/2019 12:00:00 AM EDT 1 .0 {capsule_with_food} active Venlafaxine HCl ER 1 50 MG eCW1 ([facility]) 24 HR venlafaxine 150 MG Extended Releas e Oral Capsule Venlafaxine HCl ER 150 MG Venlafaxine HCl ER 150 MG 10/05/2019 12:00:00 AM EDT 1 .0 {capsule_with_food} active Venlafaxine HCl ER 1 50 MG eCW1 ([facility]) 24 HR venlafaxine 150 MG Extended Releas e Oral Capsule Venlafaxine HCl ER 150 MG Venlafaxine HCl ER 150 MG 10/05/2019 12:00:00 AM EDT 1 .0 {capsule_with_food} active Venlafaxine HCl ER 1 50 MG eCW1 ([facility]) Primidone 50 MG Oral Tablet Primidone 09/19/2019 12:00:00 AM EDT ORAL active MEDENT ([facility], ) Fenofibrate 160 MG Oral Tablet Fenofibrate 160 MG 06/22/2019 12:00: 00 AM EST active 1 tab eCW1 ([facility]) Fenofibrate 160 MG Oral Tablet Fenofibrate 160 MG 06/22/2019 12:00: 00 AM EST active 1 tab eCW1 ([facility]) Fenofibrate 160 MG Oral Tablet Fenofibrate 160 MG 06/22/2019 12:00: 00 AM EST active 1 tab eCW1 ([facility]) Fenofibrate 160 MG Oral Tablet Fenofibrate 160 MG 06/22/2019 12:00: 00 AM EST active 1 tab eCW1 ([facility]) Insurance Providers Payer name Policy type / Coverage type Policy ID Covered libertarian ID Covered libertarian's relationship to ramos Policy Ramos Plan Information MEDICARE COMPLETE [id number] SP [id number] MEDICARE COMPLETE[facility] O [id number] S [id number] [facility] [id number] SP [id number] MEDICARE COMPLETE [id number] SP [id number] MEDICARE [id number] SP [id number] [facility] PL[facility] [id number] SP [id number] [facility] [id number] Problems, Conditions, and Diagnoses Code Display Name Description Problem Type Effective Dates Data Source(s) F51.3 [id number] Somnambulism Problem 06/11/2020 12:00:00 AM EST eCW1 ([facility]) G45.9 [id number] TIA (transient ischemic attack) Problem 06/11/2020 12:00:00 AM EST eCW1 ([facility]) R93.89 [id number] Abnormal chest xray Problem 06/11/2020 12:00 :00 AM EST eCW1 ([facility]) G89.29 Chronic pain Other chronic pain Problem 04/08/2020 12:0 0:00 AM EDT eCW1 ([facility]) E55.9 Vitamin D deficiency Vitamin D deficiency Problem 11/01/2019 12:00:00 AM EDT eCW1 ([facility]) E55.9 Vitamin D deficiency Vitamin D deficiency Problem 11/01/2019 12:00:00 AM EDT eCW1 ([facility]) R63.0 40995226 Decreased appetite Problem 10/10/2019 12:00: 00 AM EDT eCW1 ([facility]) R63.0 46851171 Decreased appetite Problem 10/10/2019 12:00: 00 AM EDT eCW1 ([facility]) 67888402 Diplopia Diplopia Problem 09/19/2019 12:00:00 AM ED T MEDENT ([facility], ) [id number] Essential tremor Essential tremor Problem 09/19/2019 12 :00:00 AM EDT MEDENT ([facility]) 113306953 Lesion of ulnar nerve Lesion of ulnar nerve Problem 09/19/2019 12:00:00 AM EDT MEDENT ([facility], ) [id number] Carpal tunnel syndrome of left wrist Car pal tunnel syndrome of left wrist Problem 09/19/2019 12:00:00 AM EDT MEDENT ([facility]) 121426286 Lumbar radiculopathy Lumbar radiculopathy Problem 07/18/2019 12:00:00 AM EST MEDENT ([facility], ) 600528798 Low back pain Low back pain Problem 07/18/2019 12:00:00 AM EST MEDENT ([facility], ) 164122997 Spondylolysis Spondylolysis Problem 07/18/2019 12:00:00 AM EST MEDENT ([facility], ) 487499842 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 Problem 07/18/2019 12:00:00 AM EST MEDENT ([facility] ) 15366999 Neck pain Neck pain Problem 07/18/2019 12:00:00 AM ES T MEDENT ([facility], ) [id number] 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 Problem 07/18/2019 12:00:00 AM EST MEDENT ([facility], ) E78.5 Dyslipidemia Dyslipidemia Problem 06/22/2019 12:00:00 A M EST W1 ([facility]) E78.5 [id number] Dyslipidemia Problem 06/22/2019 12:00:00 AM EST W1 ([facility]) I63.9 134520909 Cerebrovascular accident (CVA), unspecifi ed mechanism Problem 06/01/2019 12:00:00 AM EST W1 ([facility]) K21.9 101861911 Gastroesophageal ref lux disease, esophagitis presence not specified Problem 06/01/2019 12:00:00 AM EST eCW1 ([facility]) F32.9 Depressive disorder Depression, unspecified depression type Problem 06/01/2019 12:00:00 AM EST eCW1 ([facility]) K21.9 627264508 Gastroesophageal ref lux disease, esophagitis presence not specified Problem 06/01/2019 12:00:00 AM EST eCW1 ([facility]) F32.9 11287504 Depression, unspecified depression type P roblem 06/01/2019 12:00:00 AM EST eCW1 ([facility]) I63.9 [id number] Cerebrovascular accident (CVA), unspecifi ed mechanism Problem 06/01/2019 12:00:00 AM EST eCW1 ([facility]) Surgeries/Procedures Procedure Description Date Indications Data Source(s) Needle electromyography, each extremity, with related paraspinal areas, when performed, done with nerve conduction, amplitude and latency/velocity study; complete, five or more muscles studied, innervated by three or more nerves or four or more spinal levels (list separately in addition to the code for primary procedure). 07/23/2019 12:00:00 AM EST MEDEN T ([facility], ) Needle electromyography, each extremity, with related paraspinal areas, when performed, done with nerve conduction, amplitude and latency/velocity study; complete, five or more muscles studied, innervated by three or more nerves or four or more spinal levels (list separately in addition to the code for primary procedure). 07/23/2019 12:00:00 AM EST MEDEN T ([facility], ) Nerve Conduction 11-12 Studies 07/23/2019 12:00:00 AM EST MEDENT ([facility], ) MRI SPINAL CANAL CERVICAL W/O CONTRAST MATRL 0 12:00:00 AM EST MEDENT ([facility], ) MRI SPINAL CANAL CERVICAL W/O CONTRAST MATRL 0 12:00:00 AM EST MEDENT ([facility], ) MRI SPINAL CANAL LUMBAR W/O CONTRAST MATERIAL 07/21/19 20 12:00:00 AM EST MEDENT ([facility], ) MRI SPINAL CANAL LUMBAR W/O CONTRAST MATERIAL 07/21/19 20 12:00:00 AM EST MEDENT ([facility], ) Inject/Drain Arthrocentesis Major Joint/Bursa/Ganglion Cyst 06/12/2019 12:00:00 AM EST MEDENT ([facility] ) X-Ray Shoulder Complete 06/12/2019 12:00:00 AM EST MEDENT ([facility] ) Office Visit, New Pt., Level 3 FC 06/01/2019 12:00:00 AM EST eCW1 ([facility]) Office Visit, New Pt., Level 4 FC 06/01/2019 12:00:00 AM EST eCW1 ([facility]) Results ID Date Data Source [id number] 06/21/2020 06:39:00 PM EST [facility] Name Value Range Interpretation Code Description Data Itzel rce(s) Supporting Document(s) SARS coronavirus 2 RNA [Presence] in Res piratory specimen by MICHAEL with probe detection NEGATIVE [facility] This lab was ordered by [facility] a nd reported by [facility]. ID Date Data Source [id number] 06/01/2020 06:11:00 PM EST [facility] Name Value Range Interpretation Code Description Data Itzel rce(s) Supporting Document(s) SARS coronavirus 2 RNA [Presence] in Res piratory specimen by MICHAEL with probe detection [facility] This lab was ordered by [facility] a nd reported by [facility]. ID Date Data Source [id number] 01/02/2020 10:00:00 AM EDT [facility] Name Value Range Interpretation Code Description Data Itzel rce(s) Supporting Document(s) SARS coronavirus 2 RNA [facility] This lab was ordered by [facility] and reported by [facility]. ID Date Data Source [id number] 10/01/2019 09:06:00 AM EDT MEDENT ([facility] ) Name Value Range Interpretation Code Description Data Itzel rce(s) Supporting Document(s) Acetylcholine receptor Ab [Units/volume] in Serum Laboratory test result 0.00-0.24 MEDENT ([facility]) Negative: 0.00 - 0.24 Borderline: 0.25 - 0.40 Positive: >0.40 Acetylcholine receptor blocking Ab [Units/volume] in Serum 20 % 0-25 [facility] ([facility]) Results verified by repeat testing Negative: 0 - 25 Borderline: 26 - 30 Positive: >30 Thiamine [Mass/volume] in Blood 173.8 nmol/L 66.5-200.0 MED[facility] ([facility]) Performed at: [address] [id number] 61 Frame Nailer: Og Velarde MD, Phone: [phone] Acetylcholine receptor modulation Ab [Units/volume] in Serum Laboratory test result 0-20 [facility] ([facility]) <content>Negative: <21</content>
<content>Equivocal: 21 - 25</content>
<content>Positive: >25</content>
<content>The assay is linear between values of 12 and 64.</content>
<content>Those <12 and >64 are reported as such. No single</content>
<content>value for ACR- modulating antibody should be used as</content>
<content>a sole basis for diagnosis or response to therapy.</content>
<content></content> Pyridoxine [Mass/volume] in Serum or Plasma 15.6 ug/L 2[facility]0-32.[facility] Specimen Comment: Test(s) [id number]-Gezrhom B6; [id number]-Wzy. B1, Whole Blood Specimen Comment: was developed and its performance characteristics Specimen Comment: determined by [employer]. It has not been cleared or approved Specimen Comment: by the Food and Drug Administration. Specimen Comment: Test(s) 826154-Xtbqpck E(Alpha Tocopherol); 800237- Specimen Comment: Vitamin E(Gamma Tocopherol) Specimen Comment: was developed and its performance characteristics Specimen Comment: determined by [employer]. It has not been cleared or approved Specimen Comment: by the Food and Drug Administration. Specimen Comment: Test(s) 111918-UKlN Blocking Abs, Serum Specimen Comment: results are labeled for research purposes only by the Specimen Comment: assay's apparel stock checker. The performance characteristics of Specimen Comment: this assay have not been established by the apparel stock checker. Specimen Comment: The result should not be used for treatment or for Specimen Comment: diagnostic purposes without confirmation of the diagnosis Specimen Comment: by another medically established diagnostic product or Specimen Comment: procedure. The performance characteristics were determined Specimen Comment: by [facility]. Striated muscle Ab [Presence] in Serum Laboratory test result [facility] ([facility], ) Performed at: [facility] [address] [id number] Frame Nailer: Og Velarde MD, Phone: [phone] Performed at: [facility] [address] [place] [id number] Frame Nailer: Soren Rios MD, Phone: [phone] Performed at: [facility] [address] [id number] Frame Nailer: Shena Lau MD, Phone: [phone] Muscle specific receptor tyrosine kinase Ab [Titer] in Serum or Plasma Laboratory test result [facility]) <content>Reference Range:</content>
<content>Negative: <1.0</content>
<content>Positive: 1.0 [...] 2014;52:90-100.</content>
<content>2. Huijbers MG et al. PNAS 2013;110(21);19818-13489.</content>
<content>3. Jay Donis et al. Neurology 2006;67:505-507.</content>
<content>This test was developed and its performance characteristics</content>
<content>determined by [facility]. It has not been cleared or approved</content>
<content>by the Food and Drug Administration.</content>
<content></content> ID Date Data Source [id number] 10/01/2019 09:06:00 AM EDT [facility] Name Value Range Interpretation Code Description Data Itzel rce(s) Supporting Document(s) Vitamin E(Gamma Tocopherol) 0.3 mg/L 0.5-4.9 [facility] Reference intervals for alpha and gamma- tocopherol determined from National Health and Nutrition Examination Survey, 6577-3539. Individuals with alpha-tocopherol levels less than 5.0 mg/L are considered vitamin E deficient. Vitamin E(Alpha Tocopherol) 12.8 mg/L 9.0-29.0 [facility] ([facility], ) ID Date Data Source [id number] 10/01/2019 09:06:00 AM EDT [facility] Name Value Range Interpretation Code Description Data Itzel rce(s) Supporting Document(s) Vitamin B12 Level Laboratory test result [facility] ([facility], ) VITAMIN B12 NORMAL RANGE NORMAL 247 - 911 PG/ML INDETERMINATE 211 - 246 PG/ML DEFICIENT LESS THAN 211 PG/ML Folate Laboratory test result [facility] ([facility], ) FOLATE NORMAL RANGE NORMAL GREATER THAN 5.4 NG/ML INDETERMINATE 3.4-5.4 NG/ML DEFICIENT LESS THAN 3.4 NG/ML Procedure Social History Code Duration Value Status Description Data Source(s ) Smoking 06/11/2020 12:00:00 AM EST Never Smoker completed Never S moker eCW1 ([facility]) Smoking 06/11/2020 12:00:00 AM EST Never Smoker completed Never S moker eCW1 ([facility]) Smoking 06/11/2020 12:00:00 AM EST Never Smoker completed Never S moker eCW1 ([facility]) Smoking 06/11/2020 12:00:00 AM EST Never Smoker completed Never S moker eCW1 ([facility]) Smoking 06/11/2020 12:00:00 AM EST Never Smoker completed Never S moker eCW1 ([facility]) Smoking 04/09/2020 12:00:00 AM EDT Never Smoker completed Never S moker eCW1 ([facility]) Smoking 04/09/2020 12:00:00 AM EDT Never Smoker completed Never S moker eCW1 ([facility]) Smoking 04/09/2020 12:00:00 AM EDT Never Smoker completed Never S moker eCW1 ([facility]) Smoking 03/21/2020 12:00:00 AM EDT Never Smoker completed Never S moker eCW1 ([facility]) Smoking 11/15/2019 12:00:00 AM EDT Never Smoker completed Never S moker eCW1 ([facility]) Smoking 11/15/2019 12:00:00 AM EDT Never Smoker completed Never S moker eCW1 ([facility]) Smoking 11/15/2019 12:00:00 AM EDT Never Smoker completed Never S moker eCW1 ([facility]) Smoking 11/15/2019 12:00:00 AM EDT Never Smoker completed Never S moker eCW1 ([facility]) Vital Signs ID Date Data Source UNK Name Value Range Interpretation Code Description Data Source(s) Diastolic blood pressure 60 mm[Hg] 60 mm[Hg] eCW1 ([facility]) Systolic blood pressure 133 mm[Hg] 133 mm[Hg] e CW1 ([facility]) Body temperature 97.2 [degF] 97.2 [degF] eCW1 ( [facility]) Respiratory rate 18 /min 18 /min eCW1 ([facility]) Heart rate 60 /min 60 /min eCW1 ([facility]) Body mass index (BMI) [Ratio] 20.30 kg/m2 20.30 kg/m2 eCW1 ([facility]) Body height 62 [in_i] 62 [in_i] eCW1 ([facility]) Body weight 111 [lb_av] 111 [lb_av] eCW1 ([facility]) Diastolic blood pressure 60 mm[Hg] 60 mm[Hg] eCW1 ([facility]) Systolic blood pressure 140 mm[Hg] 140 mm[Hg] e CW1 ([facility]) Body temperature 96.6 [degF] 96.6 [degF] eCW1 ( [facility]) Respiratory rate 18 /min 18 /min eCW1 ([facility]) Heart rate 69 /min 69 /min eCW1 ([facility]) Body mass index (BMI) [Ratio] 21.29 kg/m2 21.29 kg/m2 eCW1 ([facility]) Body height 62 [in_i] 62 [in_i] eCW1 ([facility]) Body weight 116.4 [lb_av] 116.4 [lb_av] eCW1 ([facility]) Diastolic blood pressure 71 mm[Hg] 71 mm[Hg] eCW1 ([facility]) Systolic blood pressure 150 mm[Hg] 150 mm[Hg] e CW1 ([facility]) Body temperature 98.7 [degF] 98.7 [degF] eCW1 ( [facility]) Respiratory rate 18 /min 18 /min eCW1 ([facility]) Heart rate 63 /min 63 /min eCW1 ([facility]) Body mass index (BMI) [Ratio] 20.67 kg/m2 20.67 kg/m2 eCW1 ([facility]) Body height 62 [in_i] 62 [in_i] eCW1 ([facility]) Body weight [lb_av] eCW1 ([facility]) Body weight 50.576 kg 50.[facility] [address] [facility] Body mass index (BMI) [Ratio] 20.4 kg/m2 20.4 k g/m2 [facility] ([facility], ) Body weight 111.50 [lb_av] 111.50 [lb_av] [facility] Body height 62 [in_i] 62 [in_i] [facility] ([facility]) 5'2" Diastolic blood pressure 68 mm[Hg] 68 mm[Hg] [facility] ([facility]) Systolic blood pressure 120 mm[Hg] 120 [facility]Hg] [facility] Body weight 51.257 kg 51.257 kg [facility] ([facility]) Body mass index (BMI) [Ratio] 20.7 kg/m2 20.7 k g/m2 [facility] ([facility]) Body weight 113.00 [lb_av] 113.00 [lb_av] [facility] Body height 62 [in_i] 62 [in_i] [facility] ([facility]) 5'2" Diastolic blood pressure 60 mm[Hg] 60 mm[Hg] [facility] ([facility]) Systolic blood pressure 112 mm[Hg] 112 mm[Hg] M [facility] ([facility]) Diastolic blood pressure 72 mm[Hg] 72 mm[Hg] eCW1 ([facility]) Systolic blood pressure 108 mm[Hg] 108 mm[Hg] e CW1 ([facility]) Body temperature 98.4 [degF] 98.4 [degF] eCW1 ( [facility]) Respiratory rate 18 /min 18 /min eCW1 ([facility]) Heart rate 77 /min 77 /min eCW1 ([facility]) Body mass index (BMI) [Ratio] 20.48 kg/m2 20.48 kg/m2 W1 ([facility]) Body height [in_i] eCW1 ([facility]) Body weight 112 [lb_av] 112 [lb_av] eCW1 ([facility]) Diastolic blood pressure 84 mm[Hg] 84 mm[Hg] eCW1 ([facility]) Systolic blood pressure 130 mm[Hg] 130 mm[Hg] e CW1 ([facility]) Body temperature 99.0 [degF] 99.0 [degF] eCW1 ( [facility]) Respiratory rate 18 /min 18 /min eCW1 ([facility]) Heart rate 77 /min 77 /min eCW1 ([facility]) Body mass index (BMI) [Ratio] 20.12 kg/m2 20.12 kg/m2 eCW1 ([facility]) Body height [in_i] eCW1 ([facility]) Body weight 110 [lb_av] 110 [lb_av] eCW1 ([facility]) Body weight 49.216 kg 49.216 kg [facility] ([facility], ) Body mass index (BMI) [Ratio] 19.8 kg/m2 19.8 k g/m2 [facility] ([facility], ) Body weight 108.50 [lb_av] 108.50 [lb_av] MEDEN T ([facility], ) Body height 62 [in_i] 62 [in_i] [facility] ([facility], ) 5'2" Diastolic blood pressure 68 mm[Hg] 68 mm[Hg] [facility] ([facility]) Systolic blood pressure 108 mm[Hg] 108 mm[Hg] M EDENT ([facility]) Diastolic blood pressure 79 mm[Hg] 79 mm[Hg] eCW1 ([facility]) Systolic blood pressure 139 mm[Hg] 139 mm[Hg] e CW1 ([facility]) Body temperature 98.4 [degF] 98.4 [degF] eCW1 ( [facility]) Respiratory rate 20 /min 20 /min eCW1 ([facility]) Heart rate 72 /min 72 /min eCW1 ([facility]) Body mass index (BMI) [Ratio] 20.48 kg/m2 20.48 kg/m2 eCW1 ([facility]) Body height [in_us] eCW1 ([facility]) Body weight Measured 112 [lb_av] 112 [lb_av] eC W1 ([facility]) [place] body weight 110 [lb_av] 110 [lb_av] MED[facility] T ([facility], ) Body mass index (BMI) [Ratio] 21.0 kg/m2 21.0 k g/m2 [facility] ([facility]) Body weight 115.00 [lb_av] 115.00 [lb_av] MEDEN T ([facility]) Body height 62 [in_i] 62 [in_i] [facility] ([facility], ) 5'2" Respiratory rate 14 /min 14 /min [facility] ( [facility]) Heart rate 70 /min 70 /min [facility] ([facility]) Diastolic blood pressure 70 mm[Hg] 70 mm[Hg] [facility] ([facility]) Systolic blood pressure 120 mm[Hg] 120 mm[Hg] M EDENT ([facility]) Diastolic blood pressure 67 mm[Hg] 67 mm[Hg] eCW1 ([facility]) Systolic blood pressure 140 mm[Hg] 140 mm[Hg] e CW1 ([facility]) Body temperature 98.3 [degF] 98.3 [degF] eCW1 ( [facility]) Respiratory rate 20 /min 20 /min eCW1 ([facility]) Heart rate 93 /min 93 /min eCW1 ([facility]) Body mass index (BMI) [Ratio] 21.40 kg/m2 21.40 kg/m2 eCW1 ([facility]) Body height [in_us] eCW1 ([facility]) Body weight Measured 117 [lb_av] 117 [lb_av] eC W1 ([facility]) Body weight 52.164 kg 52.164 kg [facility] ([facility], ) Body mass index (BMI) [Ratio] 21.0 kg/m2 21.0 k g/m2 [facility] ([facility], ) Body weight 115.00 [lb_av] 115.00 [lb_av] MEDEN T ([facility], ) Body height 62 [in_i] 62 [in_i] [facility] ([facility], ) 5'2" Body temperature 97.9 [degF] 97.9 [degF] [facility] ([facility], ) Diastolic blood pressure 68 mm[Hg] 68 mm[Hg] eCW1 ([facility]) Systolic blood pressure 122 mm[Hg] 122 mm[Hg] e CW1 ([facility]) Body temperature 98 [degF] 98 [degF] eCW1 ([facility]) Respiratory rate 20 /min 20 /min eCW1 ([facility]) Heart rate 66 /min 66 /min eCW1 ([facility]) Body mass index (BMI) [Ratio] 21.03 kg/m2 21.03 kg/m2 eCW1 ([facility]) Body height [in_us] eCW1 ([facility]) Body weight Measured 115 [lb_av] 115 [lb_av] eC W1 ([facility]) Patient Treatment Plan of Care Planned Activity Planned Date Details Description Data Source (s) Diclofenac Sodium 50 MG Delayed Release Oral Tablet 04/09/20 12:00:00 AM EDT eCW1 ([facility]) Diclofenac Sodium 50 MG Delayed Release Oral Tablet 04/09/20 12:00:00 AM EDT eCW1 ([facility]) Omeprazole 20 MG Delayed Release Oral Capsule 11/15/2019 12:00:00 A M EDT eCW1 ([facility]) Omeprazole 20 MG Delayed Release Oral Capsule 11/15/2019 12:00:00 A M EDT eCW1 ([facility]) Physical Therapy evaluate and treat 11/15/2019 12:00:00 AM EDT eCW1 ([facility]) Omeprazole 40 MG Delayed Release Oral Capsule 11/15/2019 12:00:00 A M EDT eCW1 ([facility]) Physical Therapy evaluate and treat 11/15/2019 12:00:00 AM EDT eCW1 ([facility]) Omeprazole 40 MG Delayed Release Oral Capsule 11/15/2019 12:00:00 A M EDT eCW1 ([facility]) Physical Therapy evaluate and treat 11/15/2019 12:00:00 AM EDT eCW1 ([facility]) Omeprazole 40 MG Delayed Release Oral Capsule 11/15/2019 12:00:00 A M EDT eCW1 ([facility]) Physical Therapy evaluate and treat 11/15/2019 12:00:00 AM EDT eCW1 ([facility]) Omeprazole 40 MG Delayed Release Oral Capsule 11/15/2019 12:00:00 A M EDT eCW1 ([facility]) Walker - 11/01/2019 12:00:00 AM EDT e CW1 ([facility]) Walker - 11/01/2019 12:00:00 AM EDT e CW1 ([facility]) Walker - 11/01/2019 12:00:00 AM EDT e CW1 ([facility]) Walker - 11/01/2019 12:00:00 AM EDT e CW1 ([facility]) Walker - 11/01/2019 12:00:00 AM EDT e CW1 ([facility]) Walker - 11/01/2019 12:00:00 AM EDT e CW1 ([facility]) Walker - 11/01/2019 12:00:00 AM EDT e CW1 ([facility]) Walker - 11/01/2019 12:00:00 AM EDT e CW1 ([facility]) Walker - 11/01/2019 12:00:00 AM EDT e CW1 ([facility]) Walker - 11/01/2019 12:00:00 AM EDT e CW1 ([facility]) 24 HR venlafaxine 150 MG Extended Release Oral Capsule 10/05/2019 12:00:00 AM EDT eCW1 ([facility]) 24 HR venlafaxine 150 MG Extended Release Oral Capsule 10/05/2019 12:00:00 AM EDT eCW1 ([facility]) 24 HR venlafaxine 150 MG Extended Release Oral Capsule 10/05/2019 12:00:00 AM EDT eCW1 ([facility]) 24 HR venlafaxine 150 MG Extended Release Oral Capsule 10/05/2019 12:00:00 AM EDT eCW1 ([facility]) 24 HR venlafaxine 150 MG Extended Release Oral Capsule 10/05/2019 12:00:00 AM EDT eCW1 ([facility]) 24 HR venlafaxine 150 MG Extended Release Oral Capsule 10/05/2019 12:00:00 AM EDT eCW1 ([facility]) 24 HR venlafaxine 150 MG Extended Release Oral Capsule 10/05/2019 12:00:00 AM EDT eCW1 ([facility]) 24 HR venlafaxine 150 MG Extended Release Oral Capsule 10/05/2019 12:00:00 AM EDT eCW1 ([facility]) 24 HR venlafaxine 150 MG Extended Release Oral Capsule 10/05/2019 12:00:00 AM EDT eCW1 ([facility]) 24 HR venlafaxine 150 MG Extended Release Oral Capsule 10/05/2019 12:00:00 AM EDT eCW1 ([facility]) Fenofibrate 160 MG Oral Tablet 06/22/2019 12:00:00 AM EST eCW1 ([facility]) Fenofibrate 160 MG Oral Tablet 06/22/2019 12:00:00 AM EST eCW1 ([facility]) Fenofibrate 160 MG Oral Tablet 06/22/2019 12:00:00 AM EST eCW1 ([facility])
[2020-06-29] MEDS ORDERED: fentaNYL 100 MCG/2 ML INJECTION (J3010) IV ONE (18:45)
[2020-06-29 18:54] LABS: BASO # 0.1 10^3/uL (0.0-0.2); BASO % 0.9 % (0.0-1.0); EOS # 0.1 10^3/uL (0.0-0.5); EOS % 0.9 % (0.0-3.0); HEMATOCRIT 41.5 % (36.0-47.0); HEMOGLOBIN 13.7 g/dl (12.0-15.5); LYMPH % 29.6 % (24.0-44.0); MEAN CORPUSCULAR HEMOGLOBIN 32.4 pg (27.0-33.0); MEAN CORPUSCULAR VOLUME 98.1 fl (80.0-96.0); MONO # 0.8 10^3/uL (0.0-0.8); MONO % 12.2 % (0.0-5.0); NEUTROPHILS # 3.8 10^3/uL (1.5-8.5); PLATELET COUNT, AUTOMATED 475 10^3/uL (150-450); RED BLOOD COUNT 4.23 10^6/uL (4.00-5.40); WHITE BLOOD COUNT 6.8 10^3/uL (4.0-10.0)
--- NOTE | 2020-06-29 19:27 | REP ---
INDICATION: Abdominal Pain. COMPARISON: Chest radiograph 06/21/2020. TECHNIQUE: Supine and erect views of the abdomen are performed, well as the frontal view of the chest. FINDINGS: There is no free intraperitoneal air. There is no evidence of bowel obstruction. Moderate fecal material seen throughout the colon. Extensive costal cartilage calcifications are noted. There is degenerative change of the lumbar spine with curvature toward the left. Right middle lobe consolidation has mildly improved. Left lung is clear. Heart is normal in size. There is elevation the right hemidiaphragm again noted unchanged. Metallic plate and screws are seen in the lower cervical spine. IMPRESSION: No free air or obstruction. Moderate fecal material throughout the colon. Right middle lobe consolidation has mildly improved. <Electronically signed by Ugo Hammond > 06/29/201922
[2020-06-29 19:38] LABS: ALBUMIN 3.5 GM/DL (3.2-5.2); ALT/SGPT 34 U/L (12-78); BILIRUBIN,DIRECT < 0.1 MG/DL (0.0-0.2); BILIRUBIN,TOTAL 0.5 MG/DL (0.2-1.0); CK-MB VALUE MASS < 1.0 NG/ML (<3.6); CPK CREATINE PHOSPHOKINASE 86 U/L (26-192); LIPASE 246 U/L (73-393); MB/CK RELATIVE INDEX 1.16 (< OR =4); TOTAL PROTEIN 7.1 GM/DL (6.4-8.2); TROPONIN I < 0.02 NG/ML (< 0.10)
[2020-06-29] MEDS ORDERED: ISOVUE-370 76% 100ML VIAL As Ordered ONE (20:20)
--- NOTE | 2020-06-29 21:13 | REPVR ---
PROCEDURE INFORMATION: Exam: CT Abdomen And Pelvis With Contrast Exam date and time: 06/29/2020 8:24 PM Age: 74 years old Clinical indication: Abdominal pain; Generalized; Additional info: Abd pain/constipation TECHNIQUE: Imaging protocol: Computed tomography of the abdomen and pelvis with intravenous contrast. Radiation optimization: All CT scans at this facility use at least one of these dose optimization techniques: automated exposure control; mA and/or kV adjustment per patient size (includes targeted exams where dose is matched to clinical indication); or iterative reconstruction. Contrast material: ISOVUE 370; Contrast volume: 100 ml; Contrast route: INTRAVENOUS (IV); COMPARISON: CT ABD/PEL W/PO CONTRAST ONLY 10/27/2019 12:27 PM FINDINGS: Lungs: Volume loss with airspace consolidation, peribronchial opacities, and bronchiectasis in the right middle lobe and to a lesser degree in the right lower lobe. Liver: Normal. No mass. Gallbladder and bile ducts: The previous biliary enteric stent is been removed. No biliary duct dilation. Prior cholecystectomy. Pancreas: Mild pancreatic duct dilation measuring 3 mm. No pancreatic mass, calculi, or inflammatory changes. Spleen: Small cysts in the spleen. Spleen is otherwise unremarkable. Adrenal glands: Normal. No mass. Kidneys and ureters: Small cyst in the right kidney. Kidneys are otherwise unremarkable. No calculi or hydronephrosis. Stomach and bowel: Moderate amount of fecal material in the colon. No colonic inflammatory changes or mass. The small bowel is unremarkable. Appendix: No evidence of appendicitis. Intraperitoneal space: Unremarkable. No free air. No significant fluid collection. Vasculature: Unremarkable. No abdominal aortic aneurysm. Lymph nodes: Unremarkable. No enlarged lymph nodes. Urinary bladder: Unremarkable as visualized. Reproductive: Unremarkable as visualized. Bones/joints: There are degenerative changes in the spine and pelvis. Soft tissues: Unremarkable. IMPRESSION: 1. Mild constipation. 2. Mild pancreatic duct dilation. No pancreatic mass or inflammatory changes. 3. Peribronchial opacities with bronchiectasis and volume loss in the right middle and lower lobes suggesting mycobacterium avium complex pneumonia or other chronic pneumonia. COMMENTS: Consistent with the [employer]'s Incidental Findings Committee white paper (J Am Gwendolyn Radiol 2018): Any incidental renal lesion less than 1 cm or classified as too small to characterize, or any incidental cystic renal lesion characterized as simple-appearing, is likely benign. No follow-up imaging is recommended for these lesions per consensus recommendations based on imaging criteria. Electronically signed by: Abner Vela On 06/29/2020 21:12:15 PM
[2020-06-29 21:56] VITALS: BP 119/68
[2020-06-29] MEDS ORDERED: MIRA3350 PO (21:59)
[2020-06-29] MEDS ORDERED: COLA100C5 PO (21:59)
--- NOTE | 2020-06-30 09:12 | ECGEPIP ---
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
--- NOTE | 2020-07-01 11:33 | ED PDOC ---
Post-Departure Follow-Up kleber cabrera faxed formal report of ct abd/p for fu Hardeep Azar MD Jul 01, 2020 11:33
== END 2020-06-29 22:14 | disposition home or self-care (01) ==
LOC: M ED 18:00
DX: K59.00 Constipation, unspecified (principal); J18.9 Pneumonia, unspecified organism; I10 Essential (primary) hypertension; E78.5 Hyperlipidemia, unspecified; K20.90 Esophagitis, unspecified without bleeding; R25.1 Tremor, unspecified; Z86.73 Personal history of transient ischemic attack (TIA), and cerebral infarction without residual deficits; F33.9 Major depressive disorder, recurrent, unspecified; Z88.5 Allergy status to narcotic agent; Z79.899 Other long term (current) drug therapy
CPT/HCPCS: 74021; 74177; 80047; 80076; 81001; 82550; 82553; 83690; 84484; 85025; 93005; 96361; 96374; 99284; J2405; Q9967

== ENCOUNTER → 2020-07-01 | Outpatient (REF) | payer MEDICARE ==
[~2020-07-01] MED LIST changes: +BACT800T5 PO; +COLA100C5 PO; +DONE10TA90 PO; +MIRA1POW3 PO; +MIRA3350 PO; +NAPR-849 PO; -NAPR250T4 PO; +ONDA4TAB6 PO; +PATIENT COMMENT; +TRAM50TA2 PO
[2020-07-01 17:13] LABS: BLOOD UREA NITROGEN 18 MG/DL (7-18); CARBON DIOXIDE LEVEL 28 MEQ/L (21-32); CHLORIDE LEVEL 100 MEQ/L (98-107); CREATININE FOR GFR 0.59 MG/DL (0.55-1.30); GLOMERULAR FILTRATION RATE > 60.0 (>39); GLUCOSE, FASTING 87 MG/DL (70-100); POTASSIUM SERUM 4.3 MEQ/L (3.5-5.1); SODIUM LEVEL 135 MEQ/L (136-145)
== END ==
LOC: M SFHCCLAY 11:31
PROVIDERS: ATTEND Family Medicine
DX: G30.1 Alzheimer's disease with late onset (principal); K59.00 Constipation, unspecified; I63.9 Cerebral infarction, unspecified
CPT/HCPCS: 80048; 99496; G0463

== ENCOUNTER → 2020-07-04 | Outpatient (CLI) | payer MEDICARE ==
[~2020-07-04] MED LIST changes: +ISOVUE-370 76% 100ML VIAL As Ordered ONE; -NAPR-849 PO; +NAPR250T4 PO
--- NOTE | 2020-07-04 16:55 | REP ---
INDICATION: UNCHANGING RT DENSITY ON X RAY. COMPARISON: Several radiographs, most recently 06/29/2020. TECHNIQUE: CT chest performed following the intravenous administration of 100 cc of Isovue 370. Sagittal and coronal reconstruction images are performed. FINDINGS: Lungs: There is a calcified granuloma in the right lower lobe. There is consolidation with air bronchograms scattered throughout the right middle lobe. The right lower lobe is mildly hyperlucent. There is a small bulla in the left lower lobe along the descending thoracic aorta. There is subsegmental atelectasis/infiltrate in the superior segment of the right lower lobe. No abnormal parenchymal opacities are seen in the left lung. Mediastinum: No adenopathy. Angie: There is a small calcified lymph node in the right hilum. There appears to be fairly significant focal narrowing of the bronchus intermedius. Along the lateral aspect there appears to be ill-defined soft tissue approximately 1 cm in diameter. The central aspect of the right middle lobe bronchioles appear obliterated as does the bronchiole to the superior segment of the right lower lobe. Axilla: No adenopathy. Pleura: No effusion. Heart: Not enlarged. Thoracic aorta: No aneurysm or dissection. Upper abdominal structures: There appears to be a small cyst in the lower pole the right kidney. Visualized osseous structures: There are mild degenerative changes of the spine with a an old mild compression deformity of T12. IMPRESSION: Evidence of prior granulomatous disease. Partial consolidation right middle lobe with air bronchograms. Right lower lobe is mildly hyperlucent suggesting air trapping. There is significant focal narrowing of the bronchus intermedius. There is ill-defined soft tissue along its lateral aspect approximately 1 cm in diameter. The central right middle lobe bronchioles are obliterated with internal fluid or tissue. There is also obliteration of the bronchiole of the superior segment of the right lower lobe. Recommend bronchoscopy for further evaluation. <Electronically signed by Ugo Hammond > 07/04/20 [id number]
== END ==
LOC: M RAD 15:26
PROVIDERS: ATTEND Family Medicine
DX: R93.89 Abnormal findings on diagnostic imaging of other specified body structures (principal)
CPT/HCPCS: 71260; Q9967

== ENCOUNTER 2020-07-07 12:05 | Emergency (ER) | payer MEDICARE ==
[~2020-07-07] VITALS: Ht 157.5 cm; Wt 50.9 kg
[~2020-07-07 12:05] MED LIST changes: -BACT800T5 PO; -DONE10TA90 PO; -ISOVUE-370 76% 100ML VIAL As Ordered ONE; -MIRA1POW3 PO; -ONDA4TAB6 PO; -PATIENT COMMENT; -TRAM50TA2 PO
[2020-07-07] MEDS ORDERED: NS 1,000 ML IV ONE (13:00)
[2020-07-07] MEDS ORDERED: KETOROLAC 30 MG/ML 1ML VIAL IV ONE (13:00)
[2020-07-07] MEDS ORDERED: ONDANSETRON 4 MG ORAL DISINTEGRATING TAB PO ONE (13:00)
[2020-07-07 13:20] LABS: BASO # 0.1 10^3/uL (0.0-0.2); BASO % 0.3 % (0.0-1.0); EOS % 0.1 % (0.0-3.0); HEMATOCRIT 38.7 % (36.0-47.0); HEMOGLOBIN 12.9 g/dl (12.0-15.5); LYMPH # 1.7 10^3/uL (1.5-5.0); LYMPH % 10.2 % (24.0-44.0); MEAN CORPUSCULAR HEMOGLOBIN 32.7 pg (27.0-33.0); MEAN CORPUSCULAR HGB CONC 33.3 g/dl (32.0-36.5); MONO # 2.5 10^3/uL (0.0-0.8); MONO % 14.6 % (0.0-5.0); NEUTROPHILS # 12.6 10^3/uL (1.5-8.5); NEUTROPHILS % 74.2 % (36.0-66.0); PLATELET COUNT, AUTOMATED 406 10^3/uL (150-450); RED BLOOD COUNT 3.95 10^6/uL (4.00-5.40)
--- NOTE | 2020-07-07 13:34 | REP ---
INDICATION: Abdominal Pain. COMPARISON: Comparison study 29 June 2020. TECHNIQUE: Three views FINDINGS: Upright chest radiograph demonstrates infiltrate and/or atelectasis in right middle lobe distribution. This is similar to prior study from June 29, 2020 and June 21, 2020. The right hemidiaphragm remains somewhat elevated. There is a granulomatous calcification projecting in the right lung base. No free subdiaphragmatic air is seen. The patient is status post lower cervical spine fusion. There appear to be bilateral cervical ribs. Supine and erect views of the abdomen demonstrate air and stool in a nondistended colon. There is an anastomotic suture line in the central pelvis. Mild vascular calcification is noted. There is a levoconvex curve and some degenerative spondylosis change in the lumbar spine. Flank stripes are intact. Psoas margins are symmetric. There is no evidence of obstruction or ileus. IMPRESSION: Persistent infiltrate and/or atelectasis right middle lobe distribution. Granulomatous calcification right base. Postoperative changes. Normal bowel gas pattern. Scoliosis and spondylosis in the lumbar spine.. <Electronically signed by Akbar Rdz > 07/07/20 [id number]
--- NOTE | 2020-07-07 13:53 | REP ---
INDICATION: abd pain/weight loss. COMPARISON: Comparison CT study June 29, 2020.. TECHNIQUE: Right upper quadrant sonography. FINDINGS: Scanning through the right upper quadrant of the abdomen demonstrates no focal liver lesion. Liver is normal in size homogeneous in texture.. Gallbladder surgically absent. Common bile duct is normal measuring 0.6 cm in greatest diameter. Limited views of pancreas show no show no abnormality. There is no evidence of ascites or right renal abnormality. The right kidney measures 9.7 x 4.0 x 3.9 cm. IMPRESSION: Negative right upper quadrant sonography. Patient is status post cholecystectomy.. <Electronically signed by Akbar Rdz > 07/07/20 [id number]
[2020-07-07 14:04] LABS: ALBUMIN 3.3 GM/DL (3.2-5.2); BILIRUBIN,DIRECT 0.2 MG/DL (0.0-0.2); BILIRUBIN,TOTAL 0.7 MG/DL (0.2-1.0); TOTAL PROTEIN 6.8 GM/DL (6.4-8.2)
[2020-07-07] MEDS ORDERED: BACT800T5 PO (17:20)
[2020-07-07] MEDS ORDERED: TRAM50TA2 PO (17:20)
[2020-07-07] MEDS ORDERED: ONDA4TAB6 PO (17:20)
[2020-07-07 17:31] VITALS: BP 144/63
--- NOTE | 2020-07-07 21:59 | ED PDOC ---
Post-Departure Follow-Up dr kirby faxed formal report of abdl xray for fu Hardeep Azar MD Jul 07, 2020 21:59
== END 2020-07-07 18:19 | disposition home or self-care (01) ==
LOC: M ED 12:05
DX: N39.0 Urinary tract infection, site not specified (principal); R91.8 Other nonspecific abnormal finding of lung field; M41.9 Scoliosis, unspecified; M47.816 Spondylosis without myelopathy or radiculopathy, lumbar region; I10 Essential (primary) hypertension; Z86.73 Personal history of transient ischemic attack (TIA), and cerebral infarction without residual deficits; E78.5 Hyperlipidemia, unspecified; K21.9 Gastro-esophageal reflux disease without esophagitis; K57.92 Diverticulitis of intestine, part unspecified, without perforation or abscess without bleeding; F03.90 Unspecified dementia, unspecified severity, without behavioral disturbance, psychotic disturbance, mood disturbance, and anxiety; R25.1 Tremor, unspecified; R41.3 Other amnesia; K80.20 Calculus of gallbladder without cholecystitis without obstruction; Z79.82 Long term (current) use of aspirin; Z79.899 Other long term (current) drug therapy; Z88.5 Allergy status to narcotic agent
CPT/HCPCS: 74021; 76705; 80047; 80076; 81001; 83690; 85025; 87086; 96361; 96374; 99284; J1885; Q0162

== ENCOUNTER 2020-07-10 17:08 | Inpatient (IN) | payer MEDICARE ==
[~2020-07-10] VITALS: Ht 157.5 cm; Wt 46.1 kg
[~2020-07-10 17:08] MED LIST changes: +BACT800T5 PO; +ONDA4TAB6 PO; +TRAM50TA2 PO
--- OUTSIDE RECORDS SUMMARY | 2020-07-10 17:17 | CCD | Continuity of Care Document ---
Author Author Karli LYON M.D. 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 Onset: 09/19/2019 Isolated seizures Samuel Lyon M.D. Onset: 07/02/2020 Social History Type Date Description Comments Sex Unknown Tobacco Use Start: Unknown Patient has never smoked Allergies, Adverse Reactions, Alerts Active Allergies Reaction Severity Comments Date Morphine 07/18/2019 Medications Active Medications SIG Qnty Indications Ordering Provide r Date Donepezil HCL 10mg Tablets 1 by mouth qam. 30tabs Samuel Lyon M.D. 07/02/2020 Primidone 50mg Tablets Take 1/2 Tablet By Mouth Twice Daily. Maximum Daily Dose Is 2 15tabs Isaac Lyon M.D. 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 G40.89 Other seizures M54.2 Cervicalgia M43.02 Spondylolysis, 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, lumbar region M54.5 Low back pain M54.16 Radiculopathy, lumbar region G25.0 Essential tremor Office Visit 04/24/2020 1:45p Main office - [place] M54.2 Cervicalgia M43.02 Spondylolysis, 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 07/02/2020 G40.89 Other seizures Samuel Lyon M.D. 07/02/2020 M54.2 Cervicalgia Samuel Lyon M.D. 07/02/2020 M43.02 Spondylolysis, cervical region M ricki Lyon M.D. 07/02/2020 M43.06 Spondylolysis, lumbar region Balbir Lyon M.D. 07/02/2020 M54.5 Low back pain Samuel Lyon M.D. 07/02/2020 M54.16 Radiculopathy, lumbar region Balbir Lyon M.D. 07/02/2020 G25.0 Essential tremor Daniele Griffith 04/24/2020 M54.2 Cervicalgia Samuel Lyon M.D. 04/24/2020 [...] Lyon M.D. 04/24/2020 G25.0 Essential tremor Daniele Griffith 04/24/2020 H53.2 Diplopia Samuel Lyon M.D. Plan of Treatment Future Appointment(s):* 10/28/2020 12:00 pm - Samuel Lyon M.D. at Main office - [place] Functional Status Description No Information Available Mental Status Description No Information Available Referrals Description No Information Available
--- OUTSIDE RECORDS SUMMARY | 2020-07-10 17:17 | CCD | Continuity of Care Document ---
Author Author Karli LYON M.D. 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 Maximum Daily Dose Is 1 90tabs Samuel Lyon M.D. 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 07/02/2020 M43.02 Spondylolysis, cervical region Jorge Lyon M.D. 07/02/2020 M43.06 Spondylolysis, lumbar region [...] Samuel Lyon M.D. at Main office - [place] Functional Status Description No Information Available Mental Status Description No Information Available Referrals Description No Information Available
--- OUTSIDE RECORDS SUMMARY | 2020-07-10 17:17 | CCD ---
Author Author [facility] Organization [facility] Address Unknown Phone Unavailable Care Team Providers Care Core Shaper Top Name Role Phone Rodrigo Bhatti Unavailable PROBLEMS Type Condition ICD9-CM Code ALS54-PM Code Onset Dates Condition S tatus SNOMED Code Notes Problem Dyslipidemia E78.5 Active 143174099 Problem Decreased appetite R63.0 Active 88910499 Problem Vitamin D deficiency E55.9 Active 41602834 Problem Cerebrovascular accident (CVA), unspecified mechanism I63.9 Active 456787963 Problem Constipation, unspecified constipation type K59.00 Active 27677472 Problem Gastroesophageal reflux disease, esophagitis pre sence not specified K21.9 Active 482801439 Problem Alzheimer's disease with late onset G30.1 Acti ve 458857072 Problem Depression, unspecified depression type F32.9 Active 25481258 Problem Other chronic pain G89.29 Active 83417345 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 57420343 Problem Abnormal chest xray R93.89 Active 671401424 Problem TIA (transient ischemic attack) G45.9 Active 894242253 ALLERGIES Allergen (clinical drug ingredient) Drug/Non Drug Allergy do cumented on EMR Reaction Allergy Type Onset Date Status morphine headache, restless Non Drug Allergy Active ENCOUNTERS from 1945 to 2020-07-08 Encounter Location Date Provider Diagnosis [facility] [address] [place] [address] Jun, Rodrigo Bhatti IMMUNIZATIONS Vaccine Route Administration [...] Education Language: Question Answer Notes Languages spoken: Pashto Islam: Question Answer Notes Islam No judaism beliefs that would impact health care. Drug and Alcohol Question Answer Notes Total Score: 0 Interpretation: No problems reported Alcohol Screening: Question Answer Notes Did you have a drink containing alcohol in the past year? No Points 0 Interpretation Negative Tobacco Use: Question Answer Notes Are you a: never smoker never smoker REASON FOR REFERRAL No Information VITAL SIGNS No information MEDICATIONS Medication SIG (Take, Route, Frequency, Duration) Notes Start Da te End Date Status MiraLax 17 GM/SCOOP as directed Orally Daily Active Omeprazole 20 MG 1 capsule 30 minutes before morning meal Orally On ce a day Active Colace 100 MG 1 capsule as needed Orally Once a day Active Atorvastatin Calcium 40 MG 1 tablet Orally Once a day Active Vitamin B12 1000 MCG 1 tablet Orally Once a day Active Walker - as directed 4 WHEELED WALKER WITH SEAT I63.9, U NSTEADY GAIT October, Active Fenofibrate 160 MG 1 tab Orally Daily Active Propranolol HCl 40 MG 1 tablet Orally three times a day Active Donepezil HCl 5 MG TAKE 1 TABLET BY MOUTH EVERY DAY Active Primidone 50 MG 0.5 tablet Orally Twice a day Active Venlafaxine HCl ER 150 MG 1 capsule with food Orally bid 2 4 Sep, 2019 Active Dulcolax 10 MG 1 suppository as needed Rectal Once a day for 30 day(s) Jun, Active Cholecalciferol 25 MCG (1000 UT) 2 Orally Once a day Active Aspirin EC Low Dose 81 MG 1 tablet Orally Once a day Active PROCEDURES No Information RESULTS No Results REASON FOR VISIT abd pain, MEDICAL (GENERAL) HISTORY Type Description Date Medical [...] [facility]: Choledocholithiasis 09/2019 Hospitalization History [facility]-TIA 06/01/2020 Hospitalization History confusion r/o TIA 06/21/2020 Goals Section No Information Health Concerns No Information MEDICAL EQUIPMENT No Information MENTAL STATUS No Information FUNCTIONAL STATUS No Information ASSESSMENTS No Information PLAN OF TREATMENT Medication Medication Name Sig Start Date Stop Date Vitamin B12 1000 MCG 1 tablet Orally Once a day Dulcolax 10 MG 1 suppository as needed Rectal Once a da y for 30 day(s) Jun, Atorvastatin Calcium 40 MG 1 tablet Orally Once a day Colace 100 MG 1 capsule as needed Orally Once a day Fenofibrate 160 MG 1 tab Orally Daily MiraLax 17 GM/SCOOP as directed Orally Daily Propranolol HCl 40 MG 1 tablet Orally three times a day Omeprazole 20 MG 1 capsule 30 minutes before morning meal Orally Once a day Primidone 50 MG 0.5 tablet Orally Twice a day Cholecalciferol 25 MCG (1000 UT) 2 Orally Once a day Walker - as directed 4 WHEELED WALKER WITH SEAT I 63.9, UNSTEADY GAIT October, Donepezil HCl 5 MG TAKE 1 TABLET BY MOUTH EVERY DAY Venlafaxine HCl ER 150 MG 1 capsule with food Orally bid Sep, Aspirin EC Low Dose 81 MG 1 tablet Orally Once a day Next Appt Details Provider Name:Rodrigo Bhatti, 2020-07-16 03 :30:00 PM, [address] [place], [address], Provider Name:Margaret Jara, 2020-07-31 01:00:00 PM, [address] [place], [address], Insurance Providers Payer Name Payer Address Payer Phone Insured Name Patient Relati onship to Insured Coverage Start Date Coverage End Date MEDICARE COMPLETE [employer] [address] [address] [facility] [id number] TAY SOSA self
--- OUTSIDE RECORDS SUMMARY | 2020-07-10 17:17 | CCD ---
Author Author [facility] Organization [facility] Address Unknown Phone Unavailable Care Team Providers Care Cheese Cutter Name Role Phone Rodrigo Bhatti Unavailable PROBLEMS Type Condition ICD9-CM Code [id number] Code Onset Dates Condition S tatus SNOMED Code Notes Problem Dyslipidemia E78.5 Active 764011531 Problem Decreased appetite R63.0 Active 50125257 Problem Vitamin D deficiency E55.9 Active 64111928 Problem Cerebrovascular accident (CVA), unspecified mechanism I63.9 Active 096022725 Problem Constipation, unspecified constipation type K59.00 Active 52040147 Problem Gastroesophageal reflux disease, esophagitis pre sence not specified K21.9 Active 533812547 Problem Alzheimer's disease with late onset G30.1 Acti ve 851038744 Problem Depression, unspecified depression type F32.9 Active 19134216 Problem Other chronic pain G89.29 Active 39694459 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 57788610 Problem Abnormal chest xray R93.89 Active 349947337 Problem TIA (transient ischemic attack) G45.9 Active 686922934 ALLERGIES Allergen (clinical drug ingredient) Drug/Non Drug Allergy do cumented on EMR Reaction Allergy Type Onset Date Status morphine headache, restless Non Drug Allergy Active ENCOUNTERS from 1945 to 2020-07-06 Encounter Location Date Provider Diagnosis [facility] [address] [place] [address] Jun, Rodrigo Bhatti Abnormal ECG R94.31 IMMUNIZATIONS Vaccine Route Administration Date Status Influenza [...] Language: Question Answer Notes Languages spoken: Vietnamese Restorationism: Question Answer Notes Restorationism No restorationism beliefs that would impact health care. Drug [...] Notes Treatm ent Clinical Notes Jun, Abnormal ECG (ICD-10 - R94.31) PLAN OF TREATMENT Medication Medication Name Sig [...] Name:Rodrigo Bhatti, 2020-07-16 03 :30:00 PM, [address] [place], [address], Provider Name:Margaret Jara, 2020-07-31 01:00:00 PM, [address] [place], [address], Insurance Providers Payer Name Payer Address Payer Phone Insured Name Patient Relati onship to Insured Coverage Start Date Coverage End Date MEDICARE COMPLETE UNITED [employer]CARE [address] [address] [facility] [id number] TAY SOSA self
--- OUTSIDE RECORDS SUMMARY | 2020-07-10 17:17 | CCD ---
Author Author [facility] Organization [facility] Address Unknown Phone Unavailable Care Team Providers Care Print Producer Name Role Phone Rodrigo Bhatti Unavailable PROBLEMS Type Condition ICD9-CM Code [id number] Code Onset Dates Condition S tatus SNOMED Code Notes Problem Dyslipidemia E78.5 Active 920498043 Problem Decreased appetite R63.0 Active 58118679 Problem Vitamin D deficiency E55.9 Active 82841100 Problem Cerebrovascular accident (CVA), unspecified mechanism I63.9 Active 479094179 Problem Constipation, unspecified constipation type K59.00 Active 71126791 Problem Gastroesophageal reflux disease, esophagitis pre sence not specified K21.9 Active 974479783 Problem Alzheimer's disease with late onset G30.1 Acti ve 851829472 Problem Depression, unspecified depression type F32.9 Active 16009790 Problem Other chronic pain G89.29 Active 99273312 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 59648818 Problem Abnormal chest xray R93.89 Active 678513075 Problem TIA (transient ischemic attack) G45.9 Active 218583202 ALLERGIES Allergen (clinical drug ingredient) Drug/Non Drug Allergy do cumented on EMR Reaction Allergy Type Onset Date Status morphine headache, restless Non Drug Allergy Active ENCOUNTERS from 1945 to 2020-07-02 Encounter Location Date Provider Diagnosis [facility] [address] [place] [address] Jun, Rodrigo Bhatti IMMUNIZATIONS Vaccine Route Administration [...] Education Language: Question Answer Notes Languages spoken: Yakut Jain: Question Answer Notes Jain No mandaeism beliefs that would impact health care. Drug [...] Bhatti, 2020-07-16 03 :30:00 PM, [address] [place], [address], Provider Name:Margaret Jara, 2020-07-31 01:00:00 PM, [address] [place], [address], Insurance Providers Payer Name Payer Address Payer Phone Insured Name Patient Relati onship to Insured Coverage Start Date Coverage End Date MEDICARE COMPLETE UNITED [employer]CARE [address] [address] [facility] [id number] TAY SOSA self
--- OUTSIDE RECORDS SUMMARY | 2020-07-10 17:18 | CCD ---
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 Name Role Phone Lesley Miles MD Unavailable Unavailable Mollison, Lesley Roger MD Unavailable Unavailable MollisonLesley MD Unavailable Unavailable Mollison, Lesley Roger MD Unavailable Unavailable Mollison, Lesley Roger MD Unavailable Unavailable Mollison, Lesley Roger MD Unavailable Unavailable Mollison, Lesley Roger MD Unavailable Unavailable MollisonLesley MD Unavailable Unavailable Mollison, Lesley Roger MD Unavailable Unavailable MollisonLesley MD Unavailable Unavailable Mollison, Lesley Roger MD Unavailable Unavailable Mollison, Lesley Roger MD Unavailable Unavailable Mollison, Lesley Roger MD Unavailable Unavailable Mollison, Lesley Roger MD Unavailable Unavailable MollisonLesley MD Unavailable Unavailable MollisonLesley MD Unavailable Unavailable MollisonLesley MD Unavailable Unavailable MollisonLesley MD Unavailable Unavailable MollisonLesley MD Unavailable Unavailable MollisonLesley MD Unavailable Unavailable MollisonLesley MD Unavailable Unavailable MollisonLesley MD Unavailable Unavailable [...] Loyola, L Ann Marie RPA Unavailable Unavailable AliSamuel MD Unavailable Unavailable AliSamuel MD Unavailable Unavailable Ali, Samuel BROWN Unavailable Unavailable Ali, Samuel BROWN Unavailable Unavailable Ali, Samuel BROWN Unavailable Unavailable Ali, Samuel BROWN Unavailable Unavailable Ali, Samuel BROWN Unavailable Unavailable Ali, Samuel BROWN Unavailable Unavailable Ali, Samuel BROWN Unavailable Unavailable Ali, Samuel BROWN Unavailable Unavailable Ali, Samuel BROWN Unavailable Unavailable Ali, Samuel BROWN Unavailable Unavailable Ali, Samuel BROWN Unavailable Unavailable Ali, Samuel BROWN Unavailable Unavailable Ali, Samuel BROWN Unavailable Unavailable Ali, Samuel BROWN Unavailable Unavailable Ali, Samuel BROWN Unavailable Unavailable AliSamuel MD Unavailable Unavailable Ali, Samuel BROWN Unavailable Unavailable Ali, Samuel BROWN Unavailable Unavailable Ali, Samuel BROWN Unavailable Unavailable Ali, Samuel BROWN Unavailable Unavailable Ali, Samuel BROWN Unavailable Unavailable AliSamuel MD Unavailable Unavailable Ali, Samuel BROWN Unavailable Unavailable AliSamuel MD Unavailable Unavailable AliSamuel MD Unavailable Unavailable AliSamuel MD Unavailable Unavailable Ali, Samuel BROWN Unavailable Unavailable Ali, Samuel BROWN Unavailable Unavailable Ali, Samuel BROWN Unavailable Unavailable Ali, Samuel BROWN Unavailable Unavailable AliSamuel MD Unavailable Unavailable AliSamuel MD Unavailable Unavailable Ali, Samuel BROWN Unavailable Unavailable AliSamuel MD Unavailable Unavailable AliSamuel MD Unavailable Unavailable AliSamuel MD Unavailable Unavailable Ali, Samuel BROWN Unavailable Unavailable AliSamuel MD Unavailable Unavailable Ali, Samuel BROWN Unavailable Unavailable Ali, Samuel BROWN Unavailable Unavailable AliSamuel MD Unavailable Unavailable AliSamuel MD Unavailable Unavailable AliSamuel MD Unavailable Unavailable AliSamuel MD Unavailable Unavailable AliSamuel MD Unavailable Unavailable Ali, Samuel BROWN Unavailable Unavailable Ali, Samuel BROWN Unavailable Unavailable Re-disclosure Warning The records that [...] is protected by Article 27-F of the [facility] Public Health law. If you continue you may have access to information: Regarding HIV / AIDS; Provided by facilities licensed or operated by the [facility] Office of Mental Health; or Provided by the [facility] Office for People With Developmental Disabilities. If such information is present, then the following [facility] mandated warning applies: This information has [...] law may result in a fine or correction sentence or both. A general authorization for the release of medical or other information is NOT sufficient authorization for further disc losure. Allergies and Adverse Reactions Type Description Substance Reaction Status Data Source(s ) morphine morphine Morphine Sulfate 15 MG Extended Release Oral Tablet headache, restless Active eCW1 ([facility]) morphine morphine Morphine Sulfate 15 MG Extended Release Oral Tablet headache, restless Active eCW1 ([facility]) morphine morphine Morphine Sulfate 15 MG Extended Release Oral Tablet headache, restless Active eCW1 ([facility]) Encounters Encounter Providers Location Date Indications Data Source(s ) Unknown [address] [facility] [address] 07/07/2020 12:00:00 AM EST eCW1 ([facility]) Unknown [address] [facility] [address] 07/03/2020 12:00:00 AM EST eCW1 ([facility]) Outpatient Attender: Samuel Lyon MD Main office - [place] 07/02/2020 11:00:00 AM EST [facility] ([facility] ) Unknown [address] [facility] [address] 07/01/2020 12:00:00 AM EST eCW1 ([facility]) Unknown [address] [facility] [address] 06/25/2020 12:00:00 AM EST eCW1 ([facility]) Unknown [address] [facility] [address] 06/23/2020 12:00:00 AM EST eCW1 ([facility]) Unknown [address] [facility] [address] 06/19/2020 12:00:00 AM EST eCW1 ([facility]) Unknown [address] [facility] [address] 06/18/2020 12:00:00 AM EST eCW1 ([facility]) (TCM) Transition of Care Visit [address] [place] [address] 06/11/2020 12:00:00 AM EST eCW1 ([facility]) Unknown [address] [facility] [address] 06/05/2020 12:00:00 AM EST eCW1 ([facility]) Unknown [address] [facility] [place] [address] 04/25/2020 12:00:00 AM EST eCW1 ([facility]) Office Visit Attender: Samuel Lyon MD Main office - [place] 04/24/2020 12:45:00 PM EST MEDENT ([facility] ) Outpatient [address] [facility] [address] 04/09/2020 12:00:00 AM EDT eCW1 ([facility]) Outpatient [address] [facility] [address] 03/21/2020 12:00:00 AM EDT eCW1 ([facility]) Unknown [address] [facility] [address] 12/04/2019 12:00:00 AM EDT eCW1 ([facility]) Unknown [address] [place] [address], [place] [address] 11/23/2019 12:00:00 AM EDT eCW1 ([facility]) Outpatient [address] [place] [address] [place] [address] 11/15/2019 12:00:00 AM EDT eCW1 ([facility]) [address] [place] [address] 11/02/2019 12:00:00 AM EDT eCW1 ([facility]) Outpatient [address] [place] [address] Y [address] 11/01/2019 12:00:00 AM EDT eCW1 ([facility]) Outpatient Attender: Ann Marie Tolliver/Bryan/Matthew/Alanis nj 10/29/2019 10:30:00 AM EDT MEDENT ([facility]) [address] [place] [address] 10/29/2019 12:00:00 AM EDT eCW1 ([facility]) Outpatient Attender: Samuel Lyon MD Main office - [place] 10/17/2019 02:00:00 PM EDT MEDENT ([facility]) [address] [place] [address] 10/10/2019 12:00:00 AM EDT eCW1 ([facility]) [address] [place] [address] 10/08/2019 12:00:00 AM EDT eCW1 ([facility]) [address] [address] 10/05/2019 12:00:00 AM EDT eCW1 ([facility]) [facility] [place] [address] [place] [address], [place] [address] 10/05/2019 12:00:00 AM EDT eCW1 ([facility]) [address] [address] 10/04/2019 12:00:00 AM EDT eCW1 ([facility]) [address] [address] 10/02/2019 12:00:00 AM EDT eCW1 ([facility]) [address] [address] 10/02/2019 12:00:00 AM EDT eCW1 ([facility]) [address] [address] 10/02/2019 12:00:00 AM EDT eCW1 [facility] [address] [place] [address] 10/01/2019 12:00:00 AM EDT eCW1 ([facility]) [address] [address] 09/28/2019 12:00:00 AM EDT eCW1 ([facility]) Outpatient Attender: Samuel Lyon MD Main office - [place] 09/19/2019 12:45:00 PM EDT MED[facility] ([facility] [address] [address] 08/22/2019 12:00:00 AM EDT eCW1 ([facility]) [address] [place] [address] 08/22/2019 12:00:00 AM EDT eCW1 ([facility]) [address] [place] [address] 08/22/2019 12:00:00 AM EDT eCW1 ([facility]) [address] [address] 08/04/2019 12:00:00 AM EST eCW1 ([facility]) [address] [address] 07/17/2019 12:00:00 AM EST eCW1 ([facility]) [address] [address] 06/22/2019 12:00:00 AM EST eCW1 ([facility]) Outpatient Attender: Kana Tolliver/Jorge/Swathi indl 06/12/2019 09:30:00 AM EST [facility] ([facility] [address] [address] 06/01/2019 12:00:00 AM EST eCW1 ([facility]) Immunizations Vaccine Date Status Description Data Source(s) influenza, recombinant, quadrIvalent,injectable, prese rvative free 03/21/2020 12:58:00 PM EDT completed eCW1 ([facility]) influenza, recombinant, quadrIvalent,injectable, prese rvative free 03/21/2020 12:58:00 PM EDT completed eCW1 ([facility]) influenza, recombinant, quadrIvalent,injectable, prese rvative free 03/21/2020 12:58:00 PM EDT completed eCW1 ([facility]) influenza, recombinant, quadrIvalent,injectable, prese rvative free 03/21/2020 12:58:00 PM EDT completed eCW1 ([facility]) influenza, recombinant, quadrIvalent,injectable, prese rvative free 03/21/2020 12:58:00 PM EDT completed eCW1 ([facility]) influenza, recombinant, quadrIvalent,injectable, prese rvative free 03/21/2020 12:58:00 PM EDT completed eCW1 ([facility]) influenza, recombinant, quadrIvalent,injectable, prese rvative free 03/21/2020 12:58:00 PM EDT completed eCW1 ([facility]) influenza, recombinant, quadrIvalent,injectable, prese rvative free 03/21/2020 12:58:00 PM EDT completed eCW1 ([facility]) influenza, recombinant, quadrIvalent,injectable, prese rvative free 03/21/2020 12:58:00 PM EDT completed eCW1 ([facility]) influenza, recombinant, quadrIvalent,injectable, prese rvative free 03/21/2020 12:58:00 PM EDT completed eCW1 ([facility]) influenza, recombinant, quadrIvalent,injectable, prese rvative free 03/21/2020 12:58:00 PM EDT completed eCW1 ([facility]) influenza, recombinant, quadrIvalent,injectable, prese rvative free 03/21/2020 12:58:00 PM EDT completed eCW1 ([facility]) Medications Medication Brand Name Start Date Product Form Dose Route Admi nistrative Instructions Pharmacy Instructions Status Indications Reaction Description Data Source(s) Donepezil hydrochloride 10 MG Oral Tablet Donepezil HCL 07/02/2020 12:00:00 AM EST active MEDENT ([facility]) Bisacodyl 10 MG Rectal Suppository [Dulcolax] Dulcolax 10 MG Dulcolax 10 MG 07/01/2020 12:00:00 AM EST 1.0 {suppository_as_needed} active Dulcolax 10 MG eCW1 ([facility]) Bisacodyl 10 MG Rectal Suppository [Dulcolax] Dulcolax 10 MG Dulcolax 10 MG 07/01/2020 12:00:00 AM EST 1.0 {suppository_as_needed} active Dulcolax 10 MG eCW1 ([facility]) Bisacodyl 10 MG Rectal Suppository [Dulcolax] Dulcolax 10 MG Dulcolax 10 MG 07/01/2020 12:00:00 AM EST 1.0 {suppository_as_needed} active Dulcolax 10 MG eCW1 ([facility]) Diclofenac Sodium 50 MG Delayed Release Oral Tablet Diclofen ac Sodium 50 MG 04/09/2020 12:00:00 AM EDT 1.0 {tablet} active Diclofenac Sodium 50 MG eCW1 ([facility]) Diclofenac Sodium 50 MG Delayed Release Oral Tablet Diclofen ac Sodium 50 MG 04/09/2020 12:00:00 AM EDT 1.0 {tablet} active Diclofenac Sodium 50 MG eCW1 ([facility]) Diclofenac Sodium 50 MG Delayed Release Oral Tablet Diclofen ac Sodium 50 MG 04/09/2020 12:00:00 AM EDT 1.0 {tablet} active Diclofenac Sodium 50 MG eCW1 ([facility]) POLYETHYLENE GLYCOL 3350 142 MG/ML Oral Solution [Miralax] M iralax 02/01/2020 12:00:00 AM EDT active Jorge KEEN ([facility] ) Omeprazole 20 MG Delayed Release Oral Capsule Omeprazole 20 MG 11/15/2019 12:00:00 AM EDT active Omeprazo le 20 MG eCW1 ([facility]) Omeprazole 20 MG Delayed Release Oral Capsule Omeprazole 20 MG 11/15/2019 12:00:00 AM EDT active Omeprazo le 20 MG eCW1 ([facility]) Omeprazole 40 MG Delayed Release Oral Capsule Omeprazole 40 MG 11/15/2019 12:00:00 AM EDT active Omeprazo le 40 MG eCW1 ([facility]) Physical Therapy evaluate and treat UNK 11/15/2019 12:00:00 AM EDT active Physical Therapy evaluate and tr eat eCW1 ([facility]) Physical Therapy evaluate and treat UNK 11/15/2019 12:00:00 AM EDT active Physical Therapy evaluate and tr eat eCW1 ([facility]) Omeprazole 20 MG Delayed Release Oral Capsule Omeprazole 20 MG 11/15/2019 12:00:00 AM EDT active Omeprazo le 20 MG eCW1 ([facility]) Omeprazole 40 MG Delayed Release Oral Capsule Omeprazole 40 MG 11/15/2019 12:00:00 AM EDT active Omeprazo le 40 MG eCW1 ([facility]) Physical Therapy evaluate and treat UNK 11/15/2019 12:00:00 AM EDT active Physical Therapy evaluate and tr eat eCW1 ([facility]) Omeprazole 20 MG Delayed Release Oral Capsule Omeprazole 20 MG 11/15/2019 12:00:00 AM EDT active Omeprazo le 20 MG eCW1 ([facility]) Omeprazole 40 MG Delayed Release Oral Capsule Omeprazole 40 MG 11/15/2019 12:00:00 AM EDT active Omeprazo le 40 MG eCW1 ([facility]) Omeprazole 40 MG Delayed Release Oral Capsule Omeprazole 40 MG 11/15/2019 12:00:00 AM EDT active Omeprazo le 40 MG eCW1 ([facility]) Physical Therapy evaluate and treat UNK 11/15/2019 12:00:00 AM EDT active Physical Therapy evaluate and tr eat eCW1 ([facility]) Omeprazole 20 MG Delayed Release Oral Capsule Omeprazole 20 MG 11/15/2019 12:00:00 AM EDT active Omeprazo le 20 MG eCW1 ([facility]) Walker - Walker - 11/01/2019 12:00:00 AM EDT activ e Walker - eCW1 ([facility]) Walker - Walker - 11/01/2019 12:00:00 AM EDT suspe nded Walker - eCW1 ([facility]) Walker - Walker - 11/01/2019 12:00:00 AM EDT activ e Walker - eCW1 ([facility]) Walker - Walker - 11/01/2019 12:00:00 AM EDT activ e Walker - eCW1 ([facility]) Walker - Walker - 11/01/2019 12:00:00 AM EDT activ e Walker - eCW1 ([facility]) Walker - Walker - 11/01/2019 12:00:00 AM EDT activ e Walker - eCW1 ([facility]) Walker - Walker - 11/01/2019 12:00:00 AM EDT activ e Walker - eCW1 ([facility]) Walker - Walker - 11/01/2019 12:00:00 AM EDT activ e Walker - eCW1 ([facility]) Walker - Walker - 11/01/2019 12:00:00 AM EDT activ e Walker - eCW1 ([facility]) Walker - Walker - 11/01/2019 12:00:00 AM EDT activ e Walker - eCW1 ([facility]) Walker - Walker - 11/01/2019 12:00:00 AM EDT activ e Walker - eCW1 ([facility]) Walker - Walker - 11/01/2019 12:00:00 AM EDT activ e as directed eCW1 ([facility]) Walker - Walker - 11/01/2019 12:00:00 AM EDT activ e Walker - eCW1 ([facility]) Walker - Walker - 11/01/2019 12:00:00 AM EDT activ e Walker - eCW1 ([facility]) Walker - Walker - 11/01/2019 12:00:00 AM EDT activ e Walker - eCW1 ([facility]) Walker - Walker - 11/01/2019 12:00:00 AM EDT activ e Walker - eCW1 ([facility]) Walker - Walker - 11/01/2019 12:00:00 AM EDT suspe nded Walker - eCW1 ([facility]) 24 HR venlafaxine 150 MG Extended Releas e Oral Capsule Venlafaxine HCl ER 150 MG Venlafaxine HCl ER 150 MG 10/05/2019 12:00:00 AM EDT 1 .0 {capsule_with_food} active Venlafaxine HCl ER 1 50 MG eCW1 ([facility]) 24 HR venlafaxine 150 MG Extended Releas e Oral Capsule Venlafaxine HCl ER 150 MG Venlafaxine HCl ER 150 MG 10/05/2019 12:00:00 AM EDT active 1 capsule with food eCW1 ([facility]) 24 HR venlafaxine 150 MG Extended Releas e Oral Capsule Venlafaxine HCl ER 150 MG Venlafaxine HCl ER 150 MG 10/05/2019 12:00:00 AM EDT active 1 capsule with food eCW1 ([facility]) 24 HR venlafaxine 150 MG Extended Releas e Oral Capsule Venlafaxine HCl ER 150 MG Venlafaxine HCl ER 150 MG 10/05/2019 12:00:00 AM EDT 1 .0 {capsule_with_food} active Venlafaxine HCl ER 1 50 MG eCW1 ([facility]) 24 HR venlafaxine 150 MG Extended Releas e Oral Capsule Venlafaxine HCl ER 150 MG Venlafaxine HCl ER 150 MG 10/05/2019 12:00:00 AM EDT 1 .0 {capsule_with_food} active Venlafaxine HCl ER 1 50 MG eCW1 ([facility]) 24 HR venlafaxine 150 MG Extended Releas e Oral Capsule Venlafaxine HCl ER 150 MG Venlafaxine HCl ER 150 MG 10/05/2019 12:00:00 AM EDT 1 .0 {capsule_with_food} active Venlafaxine HCl ER 1 50 MG eCW1 ([facility]) 24 HR venlafaxine 150 MG Extended Releas e Oral Capsule Venlafaxine HCl ER 150 MG Venlafaxine HCl ER 150 MG 10/05/2019 12:00:00 AM EDT 1 .0 {capsule_with_food} active Venlafaxine HCl ER 1 50 MG eCW1 ([facility]) 24 HR venlafaxine 150 MG Extended Releas e Oral Capsule Venlafaxine HCl ER 150 MG Venlafaxine HCl ER 150 MG 10/05/2019 12:00:00 AM EDT 1 .0 {capsule_with_food} active Venlafaxine HCl ER 1 50 MG eCW1 ([facility]) 24 HR venlafaxine 150 MG Extended Releas e Oral Capsule Venlafaxine HCl ER 150 MG Venlafaxine HCl ER 150 MG 10/05/2019 12:00:00 AM EDT 1 .0 {capsule_with_food} active Venlafaxine HCl ER 1 50 MG eCW1 ([facility]) 24 HR venlafaxine 150 MG Extended Releas e Oral Capsule Venlafaxine HCl ER 150 MG Venlafaxine HCl ER 150 MG 10/05/2019 12:00:00 AM EDT 1 .0 {capsule_with_food} active Venlafaxine HCl ER 1 50 MG eCW1 ([facility]) 24 HR venlafaxine 150 MG Extended Releas e Oral Capsule Venlafaxine HCl ER 150 MG Venlafaxine HCl ER 150 MG 10/05/2019 12:00:00 AM EDT 1 .0 {capsule_with_food} active Venlafaxine HCl ER 1 50 MG eCW1 ([facility]) 24 HR venlafaxine 150 MG Extended Releas e Oral Capsule Venlafaxine HCl ER 150 MG Venlafaxine HCl ER 150 MG 10/05/2019 12:00:00 AM EDT 1 .0 {capsule_with_food} active Venlafaxine HCl ER 1 50 MG eCW1 ([facility]) 24 HR venlafaxine 150 MG Extended Releas e Oral Capsule Venlafaxine HCl ER 150 MG Venlafaxine HCl ER 150 MG 10/05/2019 12:00:00 AM EDT 1 .0 {capsule_with_food} active Venlafaxine HCl ER 1 50 MG eCW1 ([facility]) 24 HR venlafaxine 150 MG Extended Releas e Oral Capsule Venlafaxine HCl ER 150 MG Venlafaxine HCl ER 150 MG 10/05/2019 12:00:00 AM EDT 1 .0 {capsule_with_food} active Venlafaxine HCl ER 1 50 MG eCW1 ([facility]) 24 HR venlafaxine 150 MG Extended Releas e Oral Capsule Venlafaxine HCl ER 150 MG Venlafaxine HCl ER 150 MG 10/05/2019 12:00:00 AM EDT 1 .0 {capsule_with_food} active Venlafaxine HCl ER 1 50 MG eCW1 ([facility]) 24 HR venlafaxine 150 MG Extended Releas e Oral Capsule Venlafaxine HCl ER 150 MG Venlafaxine HCl ER 150 MG 10/05/2019 12:00:00 AM EDT 1 .0 {capsule_with_food} active Venlafaxine HCl ER 1 50 MG eCW1 ([facility]) 24 HR venlafaxine 150 MG Extended Releas e Oral Capsule Venlafaxine HCl ER 150 MG Venlafaxine HCl ER 150 MG 10/05/2019 12:00:00 AM EDT 1 .0 {capsule_with_food} active Venlafaxine HCl ER 1 50 MG eCW1 ([facility]) 24 HR venlafaxine 150 MG Extended Releas e Oral Capsule Venlafaxine HCl ER 150 MG Venlafaxine HCl ER 150 MG 10/05/2019 12:00:00 AM EDT 1 .0 {capsule_with_food} active Venlafaxine HCl ER 1 50 MG eCW1 ([facility]) Primidone 50 MG Oral Tablet Primidone 09/19/2019 12:00:00 AM EDT active MEDENT ([facility] ) Fenofibrate 160 MG Oral Tablet Fenofibrate 160 MG 06/22/2019 12:00: 00 AM EST active 1 tab eCW1 ([facility]) Fenofibrate 160 MG Oral Tablet Fenofibrate 160 MG 06/22/2019 12:00: 00 AM EST active 1 tab eCW1 ([facility]) Fenofibrate 160 MG Oral Tablet Fenofibrate 160 MG 06/22/2019 12:00: 00 AM EST active 1 tab eCW1 ([facility]) Fenofibrate 160 MG Oral Tablet Fenofibrate 160 MG 06/22/2019 12:00: 00 AM EST active 1 tab eCW1 ([facility]) Insurance Providers Payer name Policy type / Coverage type Policy ID Covered libertarian ID Covered libertarian's relationship to [place] Policy [place] Plan Information MEDICARE COMPLETE [id number] SP [id number] MEDICARE COMPLETE[facility] [id number] S [id number] [facility] [id number] SP [id number] MEDICARE COMPLETE [id number] SP [id number] MEDICARE [id number] SP [id number] [facility] [place] [id number] SP [id number] [facility] [place] [id number] SP [id number] Problems, Conditions, and Diagnoses Code Display Name Description Problem Type Effective Dates Data Source(s) 118673104 Isolated seizures Isolated seizures Problem 07/02 12:00:00 AM EST MEDENT ([facility] ) G30.1 [id number] Alzheimer's disease with late onset Probl em 07/01/2020 12:00:00 AM EST eCW1 ([facility]) K59.00 Constipation Constipation, unspecified constipation ty pe Problem 07/01/2020 12:00:00 AM EST eCW1 ([facility]) G45.9 [id number] TIA (transient ischemic attack) Problem 06/11/2020 12:00:00 AM EST eCW1 ([facility]) R93.89 [id number] Abnormal chest xray Problem 06/11/2020 12:00 :00 AM EST eCW1 ([facility]) F51.3 [id number] Somnambulism Problem 06/11/2020 12:00:00 AM EST eCW1 ([facility]) G89.29 Chronic pain Other chronic pain Problem 04/08/2020 12:0 0:00 AM EDT eCW1 ([facility]) E55.9 Vitamin D deficiency Vitamin D deficiency Problem 11/01/2019 12:00:00 AM EDT eCW1 ([facility]) E55.9 Vitamin D deficiency Vitamin D deficiency Problem 11/01/2019 12:00:00 AM EDT eCW1 ([facility]) R63.0 [id number] Decreased appetite Problem 10/10/2019 12:00: 00 AM EDT eCW1 ([facility]) R63.0 [id number] Decreased appetite Problem 10/10/2019 12:00: 00 AM EDT eCW1 ([facility]) [id number] Diplopia Diplopia Problem 09/19/2019 12:00:00 AM ED T MEDENT ([facility]) [id number] Essential tremor Essential tremor Problem 09/19/2019 12 :00:00 AM EDT MEDENT ([facility]) [id number] Lesion of ulnar nerve Lesion of ulnar nerve Problem 09/19/2019 12:00:00 AM EDT [facility] ([facility]) [id number] Carpal tunnel syndrome of left wrist Car pal tunnel syndrome of left wrist Problem 09/19/2019 12:00:00 AM EDT [facility] ([facility]) [id number] Lumbar radiculopathy Lumbar radiculopathy Problem 07/18/2019 12:00:00 AM EST [facility] ([facility] ) [id number] Low back pain Low back pain Problem 07/18/2019 12:00:00 AM EST MED[facility] ([facility] ) [id number] Spondylolysis Spondylolysis Problem 07/18/2019 12:00:00 AM EST MED[facility] ([facility] ) [id number] 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 Problem 07/18/2019 12:00:00 AM EST [facility] ([facility] ) [id number] Neck pain Neck pain Problem 07/18/2019 12:00:00 AM ES T MEDENT ([facility] ) [id number] 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 Problem 07/18/2019 12:00:00 AM EST [facility] ([facility] ) E78.5 Dyslipidemia Dyslipidemia Problem 06/22/2019 12:00:00 A M EST eCW1 ([facility]) E78.5 [id number] Dyslipidemia Problem 06/22/2019 12:00:00 AM EST eCW1 ([facility]) F32.9 Depressive disorder Depression, unspecified depression type Problem 06/01/2019 12:00:00 AM EST eCW1 ([facility]) K21.9 [id number] Gastroesophageal ref lux disease, esophagitis presence not specified Problem 06/01/2019 12:00:00 AM EST eCW1 ([facility]) I63.9 [id number] Cerebrovascular accident (CVA), unspecifi ed mechanism Problem 06/01/2019 12:00:00 AM EST eCW1 ([facility]) K21.9 [id number] Gastroesophageal ref lux disease, esophagitis presence not specified Problem 06/01/2019 12:00:00 AM EST eCW1 ([facility]) F32.9 [id number] Depression, unspecified depression type P roblem 06/01/2019 12:00:00 AM EST eCW1 ([facility]) I63.9 [id number] Cerebrovascular accident (CVA), unspecifi ed mechanism Problem 06/01/2019 12:00:00 AM EST eCW1 ([facility]) Surgeries/Procedures Procedure Description Date Indications Data Source(s) Needle electromyography, each extremity, with related paraspinal areas, when performed, done with nerve conduction, amplitude and latency/velocity study; complete, five or more muscles studied, innervated by three or more nerves or four or more spinal levels (list separately in addition to the code for primary procedure). 07/23/2019 12:00:00 AM EST MEDEN T ([facility], ) Needle electromyography, each extremity, with related paraspinal areas, when performed, done with nerve conduction, amplitude and latency/velocity study; complete, five or more muscles studied, innervated by three or more nerves or four or more spinal levels (list separately in addition to the code for primary procedure). 07/23/2019 12:00:00 AM EST MEDEN T ([facility] ) Nerve Conduction 11-12 Studies 07/23/2019 12:00:00 AM EST [facility] ([facility] ) MRI SPINAL CANAL CERVICAL W/O CONTRAST MATRL 0 12:00:00 AM EST [facility] ([facility] ) MRI SPINAL CANAL CERVICAL W/O CONTRAST MATRL 0 12:00:00 AM EST [facility] ([facility] ) MRI SPINAL CANAL LUMBAR W/O CONTRAST MATERIAL 07/21/19 20 12:00:00 AM EST [facility] ([facility] ) MRI SPINAL CANAL LUMBAR W/O CONTRAST MATERIAL 07/21/19 20 12:00:00 AM EST [facility] ([facility] ) Inject/Drain Arthrocentesis Major Joint/Bursa/Ganglion Cyst 06/12/2019 12:00:00 AM EST [facility] ([facility] ) X-Ray Shoulder Complete 06/12/2019 12:00:00 AM EST [facility] ([facility], ) Office Visit, New Pt., Level 3 FC 06/01/2019 12:00:00 AM EST eCW1 ([facility]) Office Visit, New Pt., Level 4 FC 06/01/2019 12:00:00 AM EST eCW1 ([facility]) Results ID Date Data Source [id number] 06/21/2020 06:39:00 PM EST [facility] Name Value Range Interpretation Code Description Data Itzel rce(s) Supporting Document(s) SARS coronavirus 2 RNA [Presence] in Res piratory specimen by MICHAEL with probe detection NEGATIVE [facility] This lab was ordered by [facility] a nd reported by [facility]. ID Date Data Source [id number] 06/01/2020 06:11:00 PM EST [facility] Name Value Range Interpretation Code Description Data Itzel rce(s) Supporting Document(s) SARS coronavirus 2 RNA [Presence] in Res piratory specimen by MICHAEL with probe detection [facility] This lab was ordered by [facility] a nd reported by [facility]. ID Date Data Source [id number] 01/02/2020 10:00:00 AM EDT [facility] Name Value Range Interpretation Code Description Data Itzel rce(s) Supporting Document(s) SARS coronavirus 2 RNA [facility] This lab was ordered by [facility] and reported by [facility]. ID Date Data Source [id number] 10/01/2019 09:06:00 AM EDT [facility] ([facility] ) Name Value Range Interpretation Code Description Data Itzel rce(s) Supporting Document(s) Acetylcholine receptor Ab [Units/volume] in Serum Laboratory test result 0.00-0.24 [facility] ([facility]) Negative: 0.00 - 0.24 Borderline: 0.25 - 0.40 Positive: >0.40 Acetylcholine receptor blocking Ab [Units/volume] in Serum 20 % 0-25 [facility] ([facility], ) Results verified by repeat testing Negative: 0 - 25 Borderline: 26 - 30 Positive: >30 Thiamine [Mass/volume] in Blood 173.8 nmol/L 66.5-200.0 [facility] ([facility]) Performed at: [facility] [address] [id number] Associate Professor Of Pathology: Og Velarde MD, Phone: [phone] Acetylcholine receptor modulation Ab [Units/volume] in Serum Laboratory test result 0-20 [facility] ([facility], ) <content>Negative: <21</content>
<content>Equivocal: 21 - 25</content>
<content>Positive: >25</content>
<content>The assay is linear between values of 12 and 64.</content>
<content>Those <12 and >64 are reported as such. No single</content>
<content>value for ACR- modulating antibody should be used as</content>
<content>a sole basis for diagnosis or response to therapy.</content>
<content></content> Pyridoxine [Mass/volume] in Serum or Plasma 15.6 ug/L 2.0-32.[address] [facility] ([facility], ) Specimen Comment: Test(s) 235162-Jpteozx B6; 834349-Ofm. B1, Whole Blood Specimen Comment: was developed and its performance characteristics Specimen Comment: determined by [employer]. It has not been cleared or approved Specimen Comment: by the Food and Drug Administration. Specimen Comment: Test(s) 172413-Zwlpelb E(Alpha Tocopherol); 231717- Specimen Comment: Vitamin E(Gamma Tocopherol) Specimen Comment: was developed and its performance characteristics Specimen Comment: determined by [employer]. It has not been cleared or approved Specimen Comment: by the Food and Drug Administration. Specimen Comment: Test(s) 543747-XQvC Blocking Abs, Serum Specimen Comment: results are labeled for research purposes only by the Specimen Comment: assay's electric motor control assembler. The performance characteristics of Specimen Comment: this assay have not been established by the electric motor control assembler. Specimen Comment: The result should not be used for treatment or for Specimen Comment: diagnostic purposes without confirmation of the diagnosis Specimen Comment: by another medically established diagnostic product or Specimen Comment: procedure. The performance characteristics were determined Specimen Comment: by [facility]. Striated muscle Ab [Presence] in Serum Laboratory test result [facility] ([facility], ) Performed at: [facility] [address] [id number] Associate Professor Of Pathology: Og Velarde MD, Phone: [phone] Performed at: [facility] [address] [place] [id number] Associate Professor Of Pathology: Soren Rios MD, Phone: [phone] Performed at: [facility] [id number] Associate Professor Of Pathology: Shena Lau MD, Phone: [phone] Muscle specific receptor tyrosine kinase Ab [Titer] in Serum or Plasma Laboratory test result [facility], ) <content>Reference Range:</content>
<content>Negative: <1.0</content>
<content>Positive: 1.0 or [...] be useful</content>
<content>to follow treatment.</content>
<content>References:</content>
<content>1. Arash Rabago S et al. J Autoimmunity 2014;52:90-100.</content>
<content>2. Aneesh BATISTA et al. PNAS 2013;110(72);19929-28045.</content>
<content>3. Jay Donis et al. Neurology 2006;67:505-507.</content>
<content>This test was developed and its performance characteristics</content>
<content>determined by [facility]. It has not been cleared or approved</content>
<content>by the Food and Drug Administration.</content>
<content></content> ID Date Data Source [id number] 10/01/2019 09:06:00 AM EDT [facility] Name Value Range Interpretation Code Description Data Itzel rce(s) Supporting Document(s) Vitamin E(Gamma Tocopherol) 0.3 mg/L 0.5-4.[address] [facility] ([facility] ) Reference intervals for alpha and gamma- tocopherol determined from National Health and Nutrition Examination Survey, 3913-0825. Individuals with alpha-tocopherol levels less than 5.0 mg/L are considered vitamin E deficient. Vitamin E(Alpha Tocopherol) 12.8 mg/L 9.0-29.0 [facility] ([facility] ) ID Date Data Source [id number] 10/01/2019 09:06:00 AM EDT [facility] Name Value Range Interpretation Code Description Data Itzel rce(s) Supporting Document(s) Vitamin B12 Level Laboratory test result [facility] ) VITAMIN B12 NORMAL RANGE NORMAL 247 - 911 PG/ML INDETERMINATE 211 - 246 PG/ML DEFICIENT LESS THAN 211 PG/ML Folate Laboratory test result [facility] ([facility], ) FOLATE NORMAL RANGE NORMAL GREATER THAN 5.4 NG/ML INDETERMINATE 3.4-5.4 NG/ML DEFICIENT LESS THAN 3.4 NG/ML Procedure Social History Code Duration Value Status Description Data Source(s ) Smoking 07/01/2020 12:00:00 AM EST Never Smoker completed Never S moker eCW1 ([facility]) Smoking 07/01/2020 12:00:00 AM EST Never Smoker completed Never S moker eCW1 ([facility]) Smoking 07/01/2020 12:00:00 AM EST Never Smoker completed Never S moker eCW1 ([facility]) Smoking 06/11/2020 12:00:00 AM EST Never Smoker completed Never S moker eCW1 ([facility]) Smoking 06/11/2020 12:00:00 AM EST Never Smoker completed Never S moker eCW1 ([facility]) Smoking 06/11/2020 12:00:00 AM EST Never Smoker completed Never S moker eCW1 ([facility]) Smoking 06/11/2020 12:00:00 AM EST Never Smoker completed Never S moker eCW1 ([facility]) Smoking 06/11/2020 12:00:00 AM EST Never Smoker completed Never S moker eCW1 ([facility]) Smoking 04/09/2020 12:00:00 AM EDT Never Smoker completed Never S moker eCW1 ([facility]) Smoking 04/09/2020 12:00:00 AM EDT Never Smoker completed Never S moker eCW1 ([facility]) Smoking 04/09/2020 12:00:00 AM EDT Never Smoker completed Never S moker eCW1 ([facility]) Smoking 03/21/2020 12:00:00 AM EDT Never Smoker completed Never S moker eCW1 ([facility]) Smoking 11/15/2019 12:00:00 AM EDT Never Smoker completed Never S moker eCW1 ([facility]) Smoking 11/15/2019 12:00:00 AM EDT Never Smoker completed Never S moker eCW1 ([facility]) Smoking 11/15/2019 12:00:00 AM EDT Never Smoker completed Never S moker eCW1 ([facility]) Smoking 11/15/2019 12:00:00 AM EDT Never Smoker completed Never S moker eCW1 ([facility]) Vital Signs ID Date Data Source UNK Name Value Range Interpretation Code Description Data Source(s) Diastolic blood pressure 60 mm[Hg] 60 mm[Hg] eCW1 ([facility]) Systolic blood pressure 133 mm[Hg] 133 mm[Hg] e CW1 ([facility]) Body temperature 97.2 [degF] 97.2 [degF] eCW1 ( [facility]) Respiratory rate 18 /min 18 /min eCW1 ([facility]) Heart rate 60 /min 60 /min eCW1 ([facility]) Body mass index (BMI) [Ratio] 20.30 kg/m2 20.30 kg/m2 eCW1 ([facility]) Body height 62 [in_i] 62 [in_i] eCW1 ([facility]) Body weight 111 [lb_av] 111 [lb_av] eCW1 ([facility]) Diastolic blood pressure 60 mm[Hg] 60 mm[Hg] eCW1 ([facility]) Systolic blood pressure 140 mm[Hg] 140 mm[Hg] e CW1 ([facility]) Body temperature 96.6 [degF] 96.6 [degF] eCW1 ( [facility]) Respiratory rate 18 /min 18 /min eCW1 ([facility]) Heart rate 69 /min 69 /min eCW1 ([facility]) Body mass index (BMI) [Ratio] 21.29 kg/m2 21.29 kg/m2 eCW1 ([facility]) Body height 62 [in_i] 62 [in_i] eCW1 ([facility]) Body weight 116.4 [lb_av] 116.4 [lb_av] eCW1 ([facility]) Diastolic blood pressure 71 mm[Hg] 71 mm[Hg] eCW1 ([facility]) Systolic blood pressure 150 mm[Hg] 150 mm[Hg] e CW1 ([facility]) Body temperature 98.7 [degF] 98.7 [degF] eCW1 ( [facility]) Respiratory rate 18 /min 18 /min eCW1 ([facility]) Heart rate 63 /min 63 /min eCW1 ([facility]) Body mass index (BMI) [Ratio] 20.67 kg/m2 20.67 kg/m2 eCW1 ([facility]) Body height 62 [in_i] 62 [in_i] eCW1 ([facility]) Body weight [lb_av] eCW1 ([facility]) Body weight 50.576 kg 50.[address] [facility] ([facility]) Body mass index (BMI) [Ratio] 20.4 kg/m2 20.4 k g/m2 [facility] ([facility]) Body weight 111.50 [lb_av] 111.50 [lb_av] MEDEN T ([facility]) Body height 62 [in_i] 62 [in_i] [facility] ([facility]) 5'2" Diastolic blood pressure 68 mm[Hg] 68 mm[Hg] [facility] ([facility]) Systolic blood pressure 120 mm[Hg] 120 mm[Hg] M EDENT ([facility]) Body weight 51.257 kg 51.[address] [facility] ([facility]) Body mass index (BMI) [Ratio] 20.7 kg/m2 20.7 k g/m2 [facility] ([facility]) Body weight 113.00 [lb_av] 113.00 [lb_av] [facility] Body height 62 [in_i] 62 [in_i] [facility] 5'2" Diastolic blood pressure 60 mm[Hg] 60 mm[Hg] [facility] ([facility]) Systolic blood pressure 112 mm[Hg] 112 mm[Hg] M EDENT ([facility]) Diastolic blood pressure 72 mm[Hg] 72 mm[Hg] eCW1 ([facility]) Systolic blood pressure 108 mm[Hg] 108 mm[Hg] e CW1 ([facility]) Body temperature 98.4 [degF] 98.4 [degF] eCW1 ( [facility]) Respiratory rate 18 /min 18 /min eCW1 ([facility]) Heart rate 77 /min 77 /min eCW1 ([facility]) Body mass index (BMI) [Ratio] 20.48 kg/m2 20.48 kg/m2 [facility] ([facility]) Body height [in_i] eCW1 ([facility]) Body weight 112 [lb_av] 112 [lb_av] eCW1 ([facility]) Diastolic blood pressure 84 mm[Hg] 84 mm[Hg] eCW1 ([facility]) Systolic blood pressure 130 mm[Hg] 130 mm[Hg] e CW1 ([facility]) Body temperature 99.0 [degF] 99.0 [degF] eCW1 ( [facility]) Respiratory rate 18 /min 18 /min eCW1 ([facility]) Heart rate 77 /min 77 /min eCW1 ([facility]) Body mass index (BMI) [Ratio] 20.12 kg/m2 20.12 kg/m2 W1 ([facility]) Body height [in_i] eCW1 ([facility]) Body weight 110 [lb_av] 110 [lb_av] eCW1 ([facility]) Body weight 49.216 kg 49.216 kg MED[facility] ([facility], ) Body mass index (BMI) [Ratio] 19.8 kg/m2 19.8 k g/m2 [facility] ([facility], ) Body weight 108.50 [lb_av] 108.50 [lb_av] MEDEN T ([facility], ) Body height 62 [in_i] 62 [in_i] [facility] ([facility], ) 5'2" Diastolic blood pressure 68 mm[Hg] 68 mm[Hg] [facility] ([facility], ) Systolic blood pressure 108 mm[Hg] 108 mm[Hg] M EDENT ([facility], ) Diastolic blood pressure 79 mm[Hg] 79 mm[Hg] eCW1 ([facility]) Systolic blood pressure 139 mm[Hg] 139 mm[Hg] e CW1 ([facility]) Body temperature 98.4 [degF] 98.4 [degF] eCW1 ( [facility]) Respiratory rate 20 /min 20 /min eCW1 ([facility]) Heart rate 72 /min 72 /min eCW1 ([facility]) Body mass index (BMI) [Ratio] 20.48 kg/m2 20.48 kg/m2 eCW1 ([facility]) Body height [in_us] eCW1 ([facility]) Body weight Measured 112 [lb_av] 112 [lb_av] eC W1 ([facility]) [place] body weight 110 [lb_av] 110 [lb_av] MEDEN T ([facility], ) Body mass index (BMI) [Ratio] 21.0 kg/m2 21.0 k g/m2 [facility] Body weight 115.00 [lb_av] 115.00 [lb_av] MEDEN T ([facility], ) Body height 62 [in_i] 62 [in_i] [facility] ([facility] ) 5'2" Respiratory rate 14 /min 14 /min [facility] ( [facility] ) Heart rate 70 /min 70 /min [facility] ([facility] ) Diastolic blood pressure 70 mm[Hg] 70 mm[Hg] [facility] Systolic blood pressure 120 mm[Hg] 120 mm[Hg] M EDENT ([facility] ) Diastolic blood pressure 67 mm[Hg] 67 mm[Hg] eCW1 ([facility]) Systolic blood pressure 140 mm[Hg] 140 mm[Hg] e CW1 ([facility]) Body temperature 98.3 [degF] 98.3 [degF] eCW1 ( [facility]) Respiratory rate 20 /min 20 /min eCW1 ([facility]) Heart rate 93 /min 93 /min eCW1 ([facility]) Body mass index (BMI) [Ratio] 21.40 kg/m2 21.40 kg/m2 eCW1 ([facility]) Body height [in_us] eCW1 ([facility]) Body weight Measured 117 [lb_av] 117 [lb_av] eC W1 ([facility]) Body weight 52.164 kg 52.164 kg MED[facility] ([facility], ) Body mass index (BMI) [Ratio] 21.0 kg/m2 21.0 k g/m2 [facility] ([facility]) Body weight 115.00 [lb_av] 115.00 [lb_av] MEDEN T ([facility]) Body height 62 [in_i] 62 [in_i] [facility] ([facility]) 5'2" Body temperature 97.9 [degF] 97.9 [degF] [facility] ([facility]) Diastolic blood pressure 68 mm[Hg] 68 mm[Hg] eCW1 ([facility]) Systolic blood pressure 122 mm[Hg] 122 mm[Hg] e CW1 ([facility]) Body temperature 98 [degF] 98 [degF] eCW1 ([facility]) Respiratory rate 20 /min 20 /min eCW1 ([facility]) Heart rate 66 /min 66 /min eCW1 ([facility]) Body mass index (BMI) [Ratio] 21.03 kg/m2 21.03 kg/m2 eCW1 ([facility]) Body height [in_us] eCW1 ([facility]) Body weight Measured 115 [lb_av] 115 [lb_av] eC W1 ([facility]) Patient Treatment Plan of Care Planned Activity Planned Date Details Description Data Source (s) Bisacodyl 10 MG Rectal Suppository [Dulcolax] 07/01/2020 12:00:00 A M EST eCW1 ([facility]) Bisacodyl 10 MG Rectal Suppository [Dulcolax] 07/01/2020 12:00:00 A M EST eCW1 ([facility]) Bisacodyl 10 MG Rectal Suppository [Dulcolax] 07/01/2020 12:00:00 A M EST eCW1 ([facility]) Diclofenac Sodium 50 MG Delayed Release Oral Tablet 04/09/20 12:00:00 AM EDT eCW1 ([facility]) Diclofenac Sodium 50 MG Delayed Release Oral Tablet 04/09/20 12:00:00 AM EDT eCW1 ([facility]) Omeprazole 20 MG Delayed Release Oral Capsule 11/15/2019 12:00:00 A M EDT eCW1 ([facility]) Omeprazole 20 MG Delayed Release Oral Capsule 11/15/2019 12:00:00 A M EDT eCW1 ([facility]) Physical Therapy evaluate and treat 11/15/2019 12:00:00 AM EDT eCW1 ([facility]) Omeprazole 40 MG Delayed Release Oral Capsule 11/15/2019 12:00:00 A M EDT eCW1 ([facility]) Physical Therapy evaluate and treat 11/15/2019 12:00:00 AM EDT eCW1 ([facility]) Omeprazole 40 MG Delayed Release Oral Capsule 11/15/2019 12:00:00 A M EDT eCW1 ([facility]) Physical Therapy evaluate and treat 11/15/2019 12:00:00 AM EDT eCW1 ([facility]) Omeprazole 40 MG Delayed Release Oral Capsule 11/15/2019 12:00:00 A M EDT eCW1 ([facility]) Physical Therapy evaluate and treat 11/15/2019 12:00:00 AM EDT eCW1 ([facility]) Omeprazole 40 MG Delayed Release Oral Capsule 11/15/2019 12:00:00 A M EDT eCW1 ([facility]) Walker - 11/01/2019 12:00:00 AM EDT e CW1 ([facility]) Walker - 11/01/2019 12:00:00 AM EDT e CW1 ([facility]) Walker - 11/01/2019 12:00:00 AM EDT e CW1 ([facility]) Walker - 11/01/2019 12:00:00 AM EDT e CW1 ([facility]) Walker - 11/01/2019 12:00:00 AM EDT e CW1 ([facility]) Walker - 11/01/2019 12:00:00 AM EDT e CW1 ([facility]) Walker - 11/01/2019 12:00:00 AM EDT e CW1 ([facility]) Walker - 11/01/2019 12:00:00 AM EDT e CW1 ([facility]) Walker - 11/01/2019 12:00:00 AM EDT e CW1 ([facility]) Walker - 11/01/2019 12:00:00 AM EDT e CW1 ([facility]) Walker - 11/01/2019 12:00:00 AM EDT e CW1 ([facility]) Walker - 11/01/2019 12:00:00 AM EDT e CW1 ([facility]) Walker - 11/01/2019 12:00:00 AM EDT e CW1 ([facility]) 24 HR venlafaxine 150 MG Extended Release Oral Capsule 10/05/2019 12:00:00 AM EDT eCW1 ([facility] [facility] 24 HR venlafaxine 150 MG Extended Release Oral Capsule 10/05/2019 12:00:00 AM EDT [email or web address] ([facility]) 24 HR venlafaxine 150 MG Extended Release Oral Capsule 10/05/2019 12:00:00 AM EDT [email or web address] ([facility]) 24 HR venlafaxine 150 MG Extended Release Oral Capsule 10/05/2019 12:00:00 AM EDT [email or web address] ([facility]) 24 HR venlafaxine 150 MG Extended Release Oral Capsule 10/05/2019 12:00:00 AM EDT [email or web address] ([facility]) 24 HR venlafaxine 150 MG Extended Release Oral Capsule 10/05/2019 12:00:00 AM EDT [email or web address] ([facility]) 24 HR venlafaxine 150 MG Extended Release Oral Capsule 10/05/2019 12:00:00 AM EDT [email or web address] ([facility]) 24 HR venlafaxine 150 MG Extended Release Oral Capsule 10/05/2019 12:00:00 AM EDT [email or web address] ([facility]) 24 HR venlafaxine 150 MG Extended Release Oral Capsule 10/05/2019 12:00:00 AM EDT eCW1 ([facility]) 24 HR venlafaxine 150 MG Extended Release Oral Capsule 10/05/2019 12:00:00 AM EDT [email or web address] ([facility]) 24 HR venlafaxine 150 MG Extended Release Oral Capsule 10/05/2019 12:00:00 AM EDT [email or web address] ([facility]) 24 HR venlafaxine 150 MG Extended Release Oral Capsule 10/05/2019 12:00:00 AM EDT eCW1 ([facility]) 24 HR venlafaxine 150 MG Extended Release Oral Capsule 10/05/2019 12:00:00 AM EDT eCW1 ([facility]) Fenofibrate 160 MG Oral Tablet 06/22/2019 12:00:00 AM EST eCW1 ([facility]) Fenofibrate 160 MG Oral Tablet 06/22/2019 12:00:00 AM EST eCW1 ([facility]) Fenofibrate 160 MG Oral Tablet 06/22/2019 12:00:00 AM EST eCW1 ([facility])
[2020-07-10 18:26] LABS: BASO # 0.1 10^3/uL (0.0-0.2); BASO % 0.7 % (0.0-1.0); EOS % 0.4 % (0.0-3.0); HEMATOCRIT 41.8 % (36.0-47.0); HEMOGLOBIN 13.7 g/dl (12.0-15.5); LYMPH % 23.5 % (24.0-44.0); MEAN CORPUSCULAR HEMOGLOBIN 31.9 pg (27.0-33.0); MEAN CORPUSCULAR HGB CONC 32.8 g/dl (32.0-36.5); MEAN CORPUSCULAR VOLUME 97.2 fl (80.0-96.0); MONO # 1.2 10^3/uL (0.0-0.8); MONO % 14.3 % (0.0-5.0); NEUTROPHILS # 5.1 10^3/uL (1.5-8.5); NEUTROPHILS % 60.7 % (36.0-66.0); PLATELET COUNT, AUTOMATED 561 10^3/uL (150-450); WHITE BLOOD COUNT 8.4 10^3/uL (4.0-10.0)
[2020-07-10 18:53] LABS: ALBUMIN 3.3 GM/DL (3.2-5.2); ALT/SGPT 22 U/L (12-78); BILIRUBIN,DIRECT 0.1 MG/DL (0.0-0.2); BILIRUBIN,TOTAL 0.2 MG/DL (0.2-1.0); BLOOD UREA NITROGEN 19 MG/DL (7-18); CALCIUM LEVEL 10.3 MG/DL (8.8-10.2); CARBON DIOXIDE LEVEL 29 MEQ/L (21-32); CHLORIDE LEVEL 95 MEQ/L (98-107); CREATININE FOR GFR 0.71 MG/DL (0.55-1.30); GLOMERULAR FILTRATION RATE > 60.0 (>39); GLUCOSE, FASTING 97 MG/DL (70-100); LIPASE 102 U/L (73-393); POTASSIUM SERUM 4.4 MEQ/L (3.5-5.1); SODIUM LEVEL 132 MEQ/L (136-145)
[2020-07-10] MEDS ORDERED: ISOVUE-370 76% 100ML VIAL As Ordered ONE (18:56)
--- OUTSIDE RECORDS SUMMARY | 2020-07-10 20:00 | CCD ---
Author Author [facility] Organization [facility] Address Unknown Phone Unavailable Care Team Providers Care Perfect Binder Operator Name Role Phone Lesley Miles MD [...] is protected by Article 27-F of the [facility] Public Health law. If you continue you may have access to information: Regarding HIV / AIDS; Provided by facilities licensed or operated by the [facility] Office of Mental Health; or Provided by the [facility] Office for People With Developmental Disabilities. If such information is present, then the following [facility] mandated warning applies: This information has [...] law may result in a fine or chcf sentence or both. A general authorization for the release of medical or other information is NOT sufficient authorization for further disc losure. Allergies and Adverse Reactions Type Description Substance Reaction Status Data Source(s ) morphine morphine Morphine Sulfate 15 MG Extended Release Oral Tablet headache, restless Active eCW1 ([facility]) morphine morphine Morphine Sulfate 15 MG Extended Release Oral Tablet headache, restless Active eCW1 ([facility]) morphine morphine Morphine Sulfate 15 MG Extended Release Oral Tablet headache, restless Active eCW1 ([facility]) Encounters Encounter Providers Location Date Indications Data Source(s ) Unknown [address] [facility] [address] 07/07/2020 12:00:00 AM EST eCW1 ([facility]) Unknown [address] [facility] [address] 07/03/2020 12:00:00 AM EST eCW1 ([facility]) Outpatient Attender: Samuel Lyon MD Main office - [place] 07/02/2020 11:00:00 AM EST MEDENT ([facility] ) Unknown [address] [facility] [address] 07/01/2020 12:00:00 AM EST eCW1 ([facility]) Unknown [address] [facility] [address] 06/25/2020 12:00:00 AM EST eCW1 ([facility]) Unknown [address] [facility] [address] 06/23/2020 12:00:00 AM EST eCW1 ([facility]) Unknown [address] [facility] [address] 06/19/2020 12:00:00 AM EST eCW1 ([facility]) Unknown [address] [facility] [address] 06/18/2020 12:00:00 AM EST eCW1 ([facility]) (TCM) Transition of Care Visit [address] [place] [address] 06/11/2020 12:00:00 AM EST eCW1 ([facility]) Unknown [address] [facility] [address] 06/05/2020 12:00:00 AM EST eCW1 ([facility]) Unknown [address] [facility] [place] [address] 04/25/2020 12:00:00 AM EST eCW1 ([facility]) Office Visit Attender: Samuel Lyon MD Main office - [place] 04/24/2020 12:45:00 PM EST MEDENT ([facility] ) Outpatient [address] [facility] [address] 04/09/2020 12:00:00 AM EDT eCW1 ([facility]) Outpatient [address] [facility] [address] 03/21/2020 12:00:00 AM EDT eCW1 ([facility]) Unknown [address] [facility] [address] 12/04/2019 12:00:00 AM EDT eCW1 [facility] Unknown [address] [place] [address], [place] [address] 11/23/2019 12:00:00 AM EDT eCW1 ([facility]) Outpatient [address] [place] [address] [place] [address] 11/15/2019 12:00:00 AM EDT eCW1 ([facility]) [address] [place] [address] 11/02/2019 12:00:00 AM EDT eCW1 ([facility]) Outpatient [address] [place] [address] [place] [address] 11/01/2019 12:00:00 AM EDT eCW1 ([facility]) Outpatient Attender: Ann Marie Tolliver/Bryan/Matthew/Alanis nj 10/29/2019 10:30:00 AM EDT MEDENT ([facility] [address] [place] [address] 10/29/2019 12:00:00 AM EDT eCW1 ([facility]) Outpatient Attender: Samuel Lyon MD Main office - [place] 10/17/2019 02:00:00 PM EDT MEDENT ([facility]) [address] [place] [address] 10/10/2019 12:00:00 AM EDT eCW1 ([facility]) [address] [place] [address] 10/08/2019 12:00:00 AM EDT eCW1 ([facility]) [address] [address] 10/05/2019 12:00:00 AM EDT eCW1 ([facility]) [facility] [place] [address] [place] [address], [place] [address] 10/05/2019 12:00:00 AM EDT eCW1 ([facility]) [address] [address] 10/04/2019 12:00:00 AM EDT eCW1 ([facility]) [address] [address] 10/02/2019 12:00:00 AM EDT eCW1 ([facility]) [address] [address] 10/02/2019 12:00:00 AM EDT eCW1 ([facility]) [address] [address] 10/02/2019 12:00:00 AM EDT eCW1 ([facility]) [facility] [address] [place] [address] 10/01/2019 12:00:00 AM EDT eCW1 ([facility]) [address] [address] 09/28/2019 12:00:00 AM EDT eCW1 ([facility]) Outpatient Attender: Samuel Lyon MD Main office - [place] 09/19/2019 12:45:00 PM EDT MEDENT ([facility] [address] [address] 08/22/2019 12:00:00 AM EDT eCW1 ([facility]) [address] [place] [address] 08/22/2019 12:00:00 AM EDT eCW1 ([facility]) [address] [place] [address] 08/22/2019 12:00:00 AM EDT eCW1 ([facility]) [address] [address] 08/04/2019 12:00:00 AM EST eCW1 ([facility]) [address] [address] 07/17/2019 12:00:00 AM EST eCW1 ([facility]) [address] [address] 06/22/2019 12:00:00 AM EST eCW1 ([facility]) Outpatient Attender: Kana Tolliver/Jorge/Swathi indl 06/12/2019 09:30:00 AM EST MEDENT ([facility] [address] [address] 06/01/2019 12:00:00 AM EST eCW1 ([facility]) Immunizations Vaccine Date Status Description Data Source(s) influenza, recombinant, quadrIvalent,injectable, prese rvative free 03/21/2020 12:58:00 PM EDT completed eCW1 ([facility]) influenza, recombinant, quadrIvalent,injectable, prese rvative free 03/21/2020 12:58:00 PM EDT completed eCW1 ([facility]) influenza, recombinant, quadrIvalent,injectable, prese rvative free 03/21/2020 12:58:00 PM EDT completed eCW1 ([facility]) influenza, recombinant, quadrIvalent,injectable, prese rvative free 03/21/2020 12:58:00 PM EDT completed eCW1 ([facility]) influenza, recombinant, quadrIvalent,injectable, prese rvative free 03/21/2020 12:58:00 PM EDT completed eCW1 ([facility]) influenza, recombinant, quadrIvalent,injectable, prese rvative free 03/21/2020 12:58:00 PM EDT completed eCW1 ([facility]) influenza, recombinant, quadrIvalent,injectable, prese rvative free 03/21/2020 12:58:00 PM EDT completed eCW1 ([facility]) influenza, recombinant, quadrIvalent,injectable, prese rvative free 03/21/2020 12:58:00 PM EDT completed eCW1 ([facility]) influenza, recombinant, quadrIvalent,injectable, prese rvative free 03/21/2020 12:58:00 PM EDT completed eCW1 ([facility]) influenza, recombinant, quadrIvalent,injectable, prese rvative free 03/21/2020 12:58:00 PM EDT completed eCW1 ([facility]) influenza, recombinant, quadrIvalent,injectable, prese rvative free 03/21/2020 12:58:00 PM EDT completed eCW1 ([facility]) influenza, recombinant, quadrIvalent,injectable, prese rvative free 03/21/2020 12:58:00 PM EDT completed eCW1 ([facility]) Medications Medication Brand Name Start Date Product Form Dose Route Admi nistrative Instructions Pharmacy Instructions Status Indications Reaction Description Data Source(s) Donepezil hydrochloride 10 MG Oral Tablet Donepezil HCL 07/02/2020 12:00:00 AM EST active MEDENT ([facility]) Bisacodyl 10 MG Rectal Suppository [Dulcolax] Dulcolax 10 MG Dulcolax 10 MG 07/01/2020 12:00:00 AM EST 1.0 {suppository_as_needed} active Dulcolax 10 MG eCW1 ([facility]) Bisacodyl 10 MG Rectal Suppository [Dulcolax] Dulcolax 10 MG Dulcolax 10 MG 07/01/2020 12:00:00 AM EST 1.0 {suppository_as_needed} active Dulcolax 10 MG eCW1 ([facility]) Bisacodyl 10 MG Rectal Suppository [Dulcolax] Dulcolax 10 MG Dulcolax 10 MG 07/01/2020 12:00:00 AM EST 1.0 {suppository_as_needed} active Dulcolax 10 MG eCW1 ([facility]) Diclofenac Sodium 50 MG Delayed Release Oral Tablet Diclofen ac Sodium 50 MG 04/09/2020 12:00:00 AM EDT 1.0 {tablet} active Diclofenac Sodium 50 MG eCW1 ([facility]) Diclofenac Sodium 50 MG Delayed Release Oral Tablet Diclofen ac Sodium 50 MG 04/09/2020 12:00:00 AM EDT 1.0 {tablet} active Diclofenac Sodium 50 MG eCW1 ([facility]) Diclofenac Sodium 50 MG Delayed Release Oral Tablet Diclofen ac Sodium 50 MG 04/09/2020 12:00:00 AM EDT 1.0 {tablet} active Diclofenac Sodium 50 MG eCW1 ([facility]) POLYETHYLENE GLYCOL 3350 142 MG/ML Oral Solution [Miralax] M iralax 02/01/2020 12:00:00 AM EDT active Jorge KEEN ([facility] ) Omeprazole 20 MG Delayed Release Oral Capsule Omeprazole 20 MG 11/15/2019 12:00:00 AM EDT active Omeprazo le 20 MG eCW1 ([facility]) Omeprazole 20 MG Delayed Release Oral Capsule Omeprazole 20 MG 11/15/2019 12:00:00 AM EDT active Omeprazo le 20 MG eCW1 ([facility]) Omeprazole 40 MG Delayed Release Oral Capsule Omeprazole 40 MG 11/15/2019 12:00:00 AM EDT active Omeprazo le 40 MG eCW1 ([facility]) Physical Therapy evaluate and treat UNK 11/15/2019 12:00:00 AM EDT active Physical Therapy evaluate and tr eat eCW1 ([facility]) Physical Therapy evaluate and treat UNK 11/15/2019 12:00:00 AM EDT active Physical Therapy evaluate and tr eat eCW1 ([facility]) Omeprazole 20 MG Delayed Release Oral Capsule Omeprazole 20 MG 11/15/2019 12:00:00 AM EDT active Omeprazo le 20 MG eCW1 ([facility]) Omeprazole 40 MG Delayed Release Oral Capsule Omeprazole 40 MG 11/15/2019 12:00:00 AM EDT active Omeprazo le 40 MG eCW1 ([facility]) Physical Therapy evaluate and treat UNK 11/15/2019 12:00:00 AM EDT active Physical Therapy evaluate and tr eat eCW1 ([facility]) Omeprazole 20 MG Delayed Release Oral Capsule Omeprazole 20 MG 11/15/2019 12:00:00 AM EDT active Omeprazo le 20 MG eCW1 ([facility]) Omeprazole 40 MG Delayed Release Oral Capsule Omeprazole 40 MG 11/15/2019 12:00:00 AM EDT active Omeprazo le 40 MG eCW1 ([facility]) Omeprazole 40 MG Delayed Release Oral Capsule Omeprazole 40 MG 11/15/2019 12:00:00 AM EDT active Omeprazo le 40 MG eCW1 ([facility]) Physical Therapy evaluate and treat UNK 11/15/2019 12:00:00 AM EDT active Physical Therapy evaluate and tr eat eCW1 ([facility]) Omeprazole 20 MG Delayed Release Oral Capsule Omeprazole 20 MG 11/15/2019 12:00:00 AM EDT active Omeprazo le 20 MG eCW1 ([facility]) Walker - Walker - 11/01/2019 12:00:00 AM EDT activ e Walker - eCW1 ([facility]) Walker - Walker - 11/01/2019 12:00:00 AM EDT suspe nded Walker - eCW1 ([facility]) Walker - Walker - 11/01/2019 12:00:00 AM EDT activ e Walker - eCW1 ([facility]) Walker - Walker - 11/01/2019 12:00:00 AM EDT activ e Walker - eCW1 ([facility]) Walker - Walker - 11/01/2019 12:00:00 AM EDT activ e Walker - eCW1 ([facility]) Walker - Walker - 11/01/2019 12:00:00 AM EDT activ e Walker - eCW1 ([facility]) Walker - Walker - 11/01/2019 12:00:00 AM EDT activ e Walker - eCW1 ([facility]) Walker - Walker - 11/01/2019 12:00:00 AM EDT activ e Walker - eCW1 ([facility]) Walker - Walker - 11/01/2019 12:00:00 AM EDT activ e Walker - eCW1 ([facility]) Walker - Walker - 11/01/2019 12:00:00 AM EDT activ e Walker - eCW1 ([facility]) Walker - Walker - 11/01/2019 12:00:00 AM EDT activ e Walker - eCW1 ([facility]) Walker - Walker - 11/01/2019 12:00:00 AM EDT activ e as directed eCW1 ([facility]) Walker - Walker - 11/01/2019 12:00:00 AM EDT activ e Walker - eCW1 ([facility]) Walker - Walker - 11/01/2019 12:00:00 AM EDT activ e Walker - eCW1 ([facility]) Walker - Walker - 11/01/2019 12:00:00 AM EDT activ e Walker - eCW1 ([facility]) Walker - Walker - 11/01/2019 12:00:00 AM EDT activ e Walker - eCW1 ([facility]) Walker - Walker - 11/01/2019 12:00:00 AM EDT suspe nded Walker - eCW1 ([facility]) 24 HR venlafaxine 150 MG Extended Releas e Oral Capsule Venlafaxine HCl ER 150 MG Venlafaxine HCl ER 150 MG 10/05/2019 12:00:00 AM EDT 1 .0 {capsule_with_food} active Venlafaxine HCl ER 1 50 MG eCW1 ([facility]) 24 HR venlafaxine 150 MG Extended Releas e Oral Capsule Venlafaxine HCl ER 150 MG Venlafaxine HCl ER 150 MG 10/05/2019 12:00:00 AM EDT active 1 capsule with food eCW1 ([facility]) 24 HR venlafaxine 150 MG Extended Releas e Oral Capsule Venlafaxine HCl ER 150 MG Venlafaxine HCl ER 150 MG 10/05/2019 12:00:00 AM EDT active 1 capsule with food eCW1 ([facility]) 24 HR venlafaxine 150 MG Extended Releas e Oral Capsule Venlafaxine HCl ER 150 MG Venlafaxine HCl ER 150 MG 10/05/2019 12:00:00 AM EDT 1 .0 {capsule_with_food} active Venlafaxine HCl ER 1 50 MG eCW1 ([facility]) 24 HR venlafaxine 150 MG Extended Releas e Oral Capsule Venlafaxine HCl ER 150 MG Venlafaxine HCl ER 150 MG 10/05/2019 12:00:00 AM EDT 1 .0 {capsule_with_food} active Venlafaxine HCl ER 1 50 MG eCW1 ([facility]) 24 HR venlafaxine 150 MG Extended Releas e Oral Capsule Venlafaxine HCl ER 150 MG Venlafaxine HCl ER 150 MG 10/05/2019 12:00:00 AM EDT 1 .0 {capsule_with_food} active Venlafaxine HCl ER 1 50 MG eCW1 ([facility]) 24 HR venlafaxine 150 MG Extended Releas e Oral Capsule Venlafaxine HCl ER 150 MG Venlafaxine HCl ER 150 MG 10/05/2019 12:00:00 AM EDT 1 .0 {capsule_with_food} active Venlafaxine HCl ER 1 50 MG eCW1 ([facility]) 24 HR venlafaxine 150 MG Extended Releas e Oral Capsule Venlafaxine HCl ER 150 MG Venlafaxine HCl ER 150 MG 10/05/2019 12:00:00 AM EDT 1 .0 {capsule_with_food} active Venlafaxine HCl ER 1 50 MG eCW1 ([facility]) 24 HR venlafaxine 150 MG Extended Releas e Oral Capsule Venlafaxine HCl ER 150 MG Venlafaxine HCl ER 150 MG 10/05/2019 12:00:00 AM EDT 1 .0 {capsule_with_food} active Venlafaxine HCl ER 1 50 MG eCW1 ([facility]) 24 HR venlafaxine 150 MG Extended Releas e Oral Capsule Venlafaxine HCl ER 150 MG Venlafaxine HCl ER 150 MG 10/05/2019 12:00:00 AM EDT 1 .0 {capsule_with_food} active Venlafaxine HCl ER 1 50 MG eCW1 ([facility]) 24 HR venlafaxine 150 MG Extended Releas e Oral Capsule Venlafaxine HCl ER 150 MG Venlafaxine HCl ER 150 MG 10/05/2019 12:00:00 AM EDT 1 .0 {capsule_with_food} active Venlafaxine HCl ER 1 50 MG eCW1 ([facility]) 24 HR venlafaxine 150 MG Extended Releas e Oral Capsule Venlafaxine HCl ER 150 MG Venlafaxine HCl ER 150 MG 10/05/2019 12:00:00 AM EDT 1 .0 {capsule_with_food} active Venlafaxine HCl ER 1 50 MG eCW1 ([facility]) 24 HR venlafaxine 150 MG Extended Releas e Oral Capsule Venlafaxine HCl ER 150 MG Venlafaxine HCl ER 150 MG 10/05/2019 12:00:00 AM EDT 1 .0 {capsule_with_food} active Venlafaxine HCl ER 1 50 MG eCW1 ([facility]) 24 HR venlafaxine 150 MG Extended Releas e Oral Capsule Venlafaxine HCl ER 150 MG Venlafaxine HCl ER 150 MG 10/05/2019 12:00:00 AM EDT 1 .0 {capsule_with_food} active Venlafaxine HCl ER 1 50 MG eCW1 ([facility]) 24 HR venlafaxine 150 MG Extended Releas e Oral Capsule Venlafaxine HCl ER 150 MG Venlafaxine HCl ER 150 MG 10/05/2019 12:00:00 AM EDT 1 .0 {capsule_with_food} active Venlafaxine HCl ER 1 50 MG eCW1 ([facility]) 24 HR venlafaxine 150 MG Extended Releas e Oral Capsule Venlafaxine HCl ER 150 MG Venlafaxine HCl ER 150 MG 10/05/2019 12:00:00 AM EDT 1 .0 {capsule_with_food} active Venlafaxine HCl ER 1 50 MG eCW1 ([facility]) 24 HR venlafaxine 150 MG Extended Releas e Oral Capsule Venlafaxine HCl ER 150 MG Venlafaxine HCl ER 150 MG 10/05/2019 12:00:00 AM EDT 1 .0 {capsule_with_food} active Venlafaxine HCl ER 1 50 MG eCW1 ([facility]) 24 HR venlafaxine 150 MG Extended Releas e Oral Capsule Venlafaxine HCl ER 150 MG Venlafaxine HCl ER 150 MG 10/05/2019 12:00:00 AM EDT 1 .0 {capsule_with_food} active Venlafaxine HCl ER 1 50 MG eCW1 ([facility]) Primidone 50 MG Oral Tablet Primidone 09/19/2019 12:00:00 AM EDT active MEDENT ([facility] ) Fenofibrate 160 MG Oral Tablet Fenofibrate 160 MG 06/22/2019 12:00: 00 AM EST active 1 tab eCW1 ([facility]) Fenofibrate 160 MG Oral Tablet Fenofibrate 160 MG 06/22/2019 12:00: 00 AM EST active 1 tab eCW1 ([facility]) Fenofibrate 160 MG Oral Tablet Fenofibrate 160 MG 06/22/2019 12:00: 00 AM EST active 1 tab eCW1 ([facility]) Fenofibrate 160 MG Oral Tablet Fenofibrate 160 MG 06/22/2019 12:00: 00 AM EST active 1 tab eCW1 ([facility]) Insurance Providers Payer name Policy type / Coverage type Policy ID Covered alliance party ID Covered alliance party's relationship to alcantara Policy [employer] Plan Information MEDICARE COMPLETE [id number] SP [id number] MEDIC[place]PLE[place] [id number] S [id number] [facility] [id number] SP [id number] MEDICARE COMPLETE [id number] SP [id number] MEDICARE [id number] SP [id number] FORMERLY [facility] [id number] SP [id number] FORMERLY [facility] [id number] SP [id number] Problems, Conditions, and Diagnoses Code Display Name Description Problem Type Effective Dates Data Source(s) 656593095 Isolated seizures Isolated seizures Problem 07/02 12:00:00 AM EST MEDENT ([facility], ) G30.1 [id number] Alzheimer's disease with late onset Probl em 07/01/2020 12:00:00 AM EST eCW1 ([facility]) K59.00 Constipation Constipation, unspecified constipation ty pe Problem 07/01/2020 12:00:00 AM EST eCW1 ([facility]) G45.9 [id number] TIA (transient ischemic attack) Problem 06/11/2020 12:00:00 AM EST eCW1 ([facility]) R93.89 [id number] Abnormal chest xray Problem 06/11/2020 12:00 :00 AM EST eCW1 ([facility]) F51.3 [id number] Somnambulism Problem 06/11/2020 12:00:00 AM EST eCW1 ([facility]) G89.29 Chronic pain Other chronic pain Problem 04/08/2020 12:0 0:00 AM EDT eCW1 ([facility]) E55.9 Vitamin D deficiency Vitamin D deficiency Problem 11/01/2019 12:00:00 AM EDT eCW1 ([facility]) E55.9 Vitamin D deficiency Vitamin D deficiency Problem 11/01/2019 12:00:00 AM EDT eCW1 ([facility]) R63.0 [id number] Decreased appetite Problem 10/10/2019 12:00: 00 AM EDT eCW1 ([facility]) R63.0 34843000 Decreased appetite Problem 10/10/2019 12:00: 00 AM EDT eCW1 ([facility]) 28039691 Diplopia Diplopia Problem 09/19/2019 12:00:00 AM ED T MEDENT ([facility]) [id number] Essential tremor Essential tremor Problem 09/19/2019 12 :00:00 AM EDT MEDENT ([facility]) 834781276 Lesion of ulnar nerve Lesion of ulnar nerve Problem 09/19/2019 12:00:00 AM EDT MEDENT ([facility]) [id number] Carpal tunnel syndrome of left wrist Car pal tunnel syndrome of left wrist Problem 09/19/2019 12:00:00 AM EDT MEDENT ([facility]) 242006516 Lumbar radiculopathy Lumbar radiculopathy Problem 07/18/2019 12:00:00 AM EST MEDENT ([facility] ) 249367048 Low back pain Low back pain Problem 07/18/2019 12:00:00 AM EST MEDENT ([facility] ) 405210776 Spondylolysis Spondylolysis Problem 07/18/2019 12:00:00 AM EST MEDENT ([facility] ) 036227185 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 Problem 07/18/2019 12:00:00 AM EST MEDENT ([facility] ) 74077684 Neck pain Neck pain Problem 07/18/2019 12:00:00 AM ES T MEDENT ([facility] ) [id number] 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 Problem 07/18/2019 12:00:00 AM EST MEDENT ([facility] ) E78.5 Dyslipidemia Dyslipidemia Problem 06/22/2019 12:00:00 A M EST eCW1 ([facility]) E78.5 [id number] Dyslipidemia Problem 06/22/2019 12:00:00 AM EST eCW1 ([facility]) F32.9 Depressive disorder Depression, unspecified depression type Problem 06/01/2019 12:00:00 AM EST eCW1 ([facility]) K21.9 408798534 Gastroesophageal ref lux disease, esophagitis presence not specified Problem 06/01/2019 12:00:00 AM EST eCW1 ([facility]) I63.9 077963145 Cerebrovascular accident (CVA), unspecifi ed mechanism Problem 06/01/2019 12:00:00 AM EST eCW1 ([facility]) K21.9 451961226 Gastroesophageal ref lux disease, esophagitis presence not specified Problem 06/01/2019 12:00:00 AM EST eCW1 ([facility]) F32.9 46221025 Depression, unspecified depression type P roblem 06/01/2019 12:00:00 AM EST eCW1 ([facility]) I63.9 224806085 Cerebrovascular accident (CVA), unspecifi ed mechanism Problem 06/01/2019 12:00:00 AM EST eCW1 ([facility]) Surgeries/Procedures Procedure Description Date Indications Data Source(s) Needle electromyography, each extremity, with related paraspinal areas, when performed, done with nerve conduction, amplitude and latency/velocity study; complete, five or more muscles studied, innervated by three or more nerves or four or more spinal levels (list separately in addition to the code for primary procedure). 07/23/2019 12:00:00 AM EST MEDEN T ([facility], ) Needle electromyography, each extremity, with related paraspinal areas, when performed, done with nerve conduction, amplitude and latency/velocity study; complete, five or more muscles studied, innervated by three or more nerves or four or more spinal levels (list separately in addition to the code for primary procedure). 07/23/2019 12:00:00 AM EST MEDEN T ([facility], ) Nerve Conduction 11-12 Studies 07/23/2019 12:00:00 AM EST MEDENT ([facility], ) MRI SPINAL CANAL CERVICAL W/O CONTRAST MATRL 0 12:00:00 AM EST MEDENT ([facility], ) MRI SPINAL CANAL CERVICAL W/O CONTRAST MATRL 0 12:00:00 AM EST MEDENT ([facility], ) MRI SPINAL CANAL LUMBAR W/O CONTRAST MATERIAL 07/21/19 20 12:00:00 AM EST MEDENT ([facility], ) MRI SPINAL CANAL LUMBAR W/O CONTRAST MATERIAL 07/21/19 20 12:00:00 AM EST MEDENT ([facility], ) Inject/Drain Arthrocentesis Major Joint/Bursa/Ganglion Cyst 06/12/2019 12:00:00 AM EST MEDENT ([facility], ) X-Ray Shoulder Complete 06/12/2019 12:00:00 AM EST MEDENT ([facility], ) Office Visit, New Pt., Level 3 FC 06/01/2019 12:00:00 AM EST eCW1 ([facility]) Office Visit, New Pt., Level 4 FC 06/01/2019 12:00:00 AM EST eCW1 ([facility]) Results ID Date Data Source [id number] 06/21/2020 06:39:00 PM EST [facility] Name Value Range Interpretation Code Description Data Itzel rce(s) Supporting Document(s) SARS coronavirus 2 RNA [Presence] in Res piratory specimen by MICHAEL with probe detection NEGATIVE [facility] This lab was ordered by [facility] a nd reported by [facility]. ID Date Data Source [id number] 06/01/2020 06:11:00 PM EST [facility] Name Value Range Interpretation Code Description Data Itzel rce(s) Supporting Document(s) SARS coronavirus 2 RNA [Presence] in Res piratory specimen by MICHAEL with probe detection [facility] This lab was ordered by [facility] a nd reported by [facility]. ID Date Data Source [id number] 01/02/2020 10:00:00 AM EDT [facility] Name Value Range Interpretation Code Description Data Itzel rce(s) Supporting Document(s) SARS coronavirus 2 RNA [facility] This lab was ordered by [facility] and reported by [facility]. ID Date Data Source [id number] 10/01/2019 09:06:00 AM EDT MEDENT ([facility], ) Name Value Range Interpretation Code Description Data Itzel rce(s) Supporting Document(s) Acetylcholine receptor Ab [Units/volume] in Serum Laboratory test result 0.00-0.24 MEDENT ([facility]) Negative: 0.00 - 0.24 Borderline: 0.25 - 0.40 Positive: >0.40 Acetylcholine receptor blocking Ab [Units/volume] in Serum 20 % 0-25 MEDENT ([facility], ) Results verified by repeat testing Negative: 0 - 25 Borderline: 26 - 30 Positive: >30 Thiamine [Mass/volume] in Blood 173.8 nmol/L 66.5-200.0 MEDENT ([facility]) Performed at: [facility] [address] [id number] Paramedic Supervisor: Og Velarde MD, Phone: [phone] Acetylcholine receptor modulation Ab [Units/volume] in Serum Laboratory test result 0-20 MEDENT ([facility], ) <content>Negative: <21</content>
<content>Equivocal: 21 - 25</content>
<content>Positive: >25</content>
<content>The assay is linear between values of 12 and 64.</content>
<content>Those <12 and >64 are reported as such. No single</content>
<content>value for ACR- modulating antibody should be used as</content>
<content>a sole basis for diagnosis or response to therapy.</content>
<content></content> Pyridoxine [Mass/volume] in Serum or Plasma 15.6 ug/L 2.0-32.8 [facility] ([facility], ) Specimen Comment: Test(s) [id number] B6; [id number]-Xhm. B1, Whole Blood Specimen Comment: was developed and its performance characteristics Specimen Comment: determined by [email or web address]. It has not been cleared or approved Specimen Comment: by the Food and Drug Administration. Specimen Comment: Test(s) 736096-Oauqhbq E(Alpha Tocopherol); 219290- Specimen Comment: Vitamin E(Gamma Tocopherol) Specimen Comment: was developed and its performance characteristics Specimen Comment: determined by [employer]. It has not been cleared or approved Specimen Comment: by the Food and Drug Administration. Specimen Comment: Test(s) [id number]-[id number] Blocking Abs, Serum Specimen Comment: results are labeled for research purposes only by the Specimen Comment: assay's public relations associate. The performance characteristics of Specimen Comment: this assay have not been established by the public relations associate. Specimen Comment: The result should not be used for treatment or for Specimen Comment: diagnostic purposes without confirmation of the diagnosis Specimen Comment: by another medically established diagnostic product or Specimen Comment: procedure. The performance characteristics were determined Specimen Comment: by [facility]. Striated muscle Ab [Presence] in Serum Laboratory test result [facility] ([facility], ) Performed at: [facility] [address] [id number] Paramedic Supervisor: Og Velarde MD, Phone: [phone] Performed at: [employer] [address] [place] [id number] Paramedic Supervisor: Soren Rios MD, Phone: [phone] Performed at: [facility] [id number] Paramedic Supervisor: Shena Lau MD, Phone: [phone] Muscle specific receptor tyrosine kinase Ab [Titer] in Serum or Plasma Laboratory test result [facility], ) <content>Reference Range:</content>
<content>Negative: <1.0</content>
<content>Positive: [...] 2014;52:90-100.</content>
<content>2. Aneesh BATISTA et al. PNAS 2013;110(27);18298-95568.</content>
<content>3. Jay Donis et al. Neurology 2006;67:505-507.</content>
<content>This test was developed and its performance characteristics</content>
<content>determined by [facility]. It has not been cleared or approved</content>
<content>by the Food and Drug Administration.</content>
<content></content> ID Date Data Source [id number] 10/01/2019 09:06:00 AM EDT [facility] Name Value Range Interpretation Code Description Data Itzel rce(s) Supporting Document(s) Vitamin E(Gamma Tocopherol) 0.3 mg/L 0.5-4.9 [facility] ([facility], ) Reference intervals for alpha and gamma- tocopherol determined from National Health and Nutrition Examination Survey, 1219-0980. Individuals with alpha-tocopherol levels less than 5.0 mg/L are considered vitamin E deficient. Vitamin E(Alpha Tocopherol) 12.8 mg/L 9.0-29.0 [facility] ) ID Date Data Source [id number] 10/01/2019 09:06:00 AM EDT [facility] Name Value Range Interpretation Code Description Data Itzel rce(s) Supporting Document(s) Vitamin B12 Level Laboratory test [facility] ) VITAMIN B12 NORMAL RANGE NORMAL 247 - 911 PG/ML INDETERMINATE 211 - 246 PG/ML DEFICIENT LESS THAN 211 PG/ML Folate Laboratory test result [facility] ([facility], ) FOLATE NORMAL RANGE NORMAL GREATER THAN 5.4 NG/ML INDETERMINATE 3.4-5.4 NG/ML DEFICIENT LESS THAN 3.4 NG/ML Procedure Social History Code Duration Value Status Description Data Source(s ) Smoking 07/01/2020 12:00:00 AM EST Never Smoker completed Never S moker eCW1 ([facility]) Smoking 07/01/2020 12:00:00 AM EST Never Smoker completed Never S moker eCW1 ([facility]) Smoking 07/01/2020 12:00:00 AM EST Never Smoker completed Never S moker eCW1 ([facility]) Smoking 06/11/2020 12:00:00 AM EST Never Smoker completed Never S moker eCW1 ([facility]) Smoking 06/11/2020 12:00:00 AM EST Never Smoker completed Never S moker eCW1 ([facility]) Smoking 06/11/2020 12:00:00 AM EST Never Smoker completed Never S moker eCW1 ([facility]) Smoking 06/11/2020 12:00:00 AM EST Never Smoker completed Never S moker eCW1 ([facility]) Smoking 06/11/2020 12:00:00 AM EST Never Smoker completed Never S moker eCW1 ([facility]) Smoking 04/09/2020 12:00:00 AM EDT Never Smoker completed Never S moker eCW1 ([facility]) Smoking 04/09/2020 12:00:00 AM EDT Never Smoker completed Never S moker eCW1 ([facility]) Smoking 04/09/2020 12:00:00 AM EDT Never Smoker completed Never S moker eCW1 ([facility]) Smoking 03/21/2020 12:00:00 AM EDT Never Smoker completed Never S moker eCW1 ([facility]) Smoking 11/15/2019 12:00:00 AM EDT Never Smoker completed Never S moker eCW1 ([facility]) Smoking 11/15/2019 12:00:00 AM EDT Never Smoker completed Never S moker eCW1 ([facility]) Smoking 11/15/2019 12:00:00 AM EDT Never Smoker completed Never S moker eCW1 ([facility]) Smoking 11/15/2019 12:00:00 AM EDT Never Smoker completed Never S moker eCW1 ([facility]) Vital Signs ID Date Data Source UNK Name Value Range Interpretation Code Description Data Source(s) Diastolic blood pressure 60 mm[Hg] 60 mm[Hg] eCW1 ([facility]) Systolic blood pressure 133 mm[Hg] 133 mm[Hg] e CW1 ([facility]) Body temperature 97.2 [degF] 97.2 [degF] eCW1 ( [facility]) Respiratory rate 18 /min 18 /min eCW1 ([facility]) Heart rate 60 /min 60 /min eCW1 ([facility]) Body mass index (BMI) [Ratio] 20.30 kg/m2 20.30 kg/m2 eCW1 ([facility]) Body height 62 [in_i] 62 [in_i] eCW1 ([facility]) Body weight 111 [lb_av] 111 [lb_av] eCW1 ([facility]) Diastolic blood pressure 60 mm[Hg] 60 mm[Hg] eCW1 ([facility]) Systolic blood pressure 140 mm[Hg] 140 mm[Hg] e CW1 ([facility]) Body temperature 96.6 [degF] 96.6 [degF] eCW1 ( [facility]) Respiratory rate 18 /min 18 /min eCW1 ([facility]) Heart rate 69 /min 69 /min eCW1 ([facility]) Body mass index (BMI) [Ratio] 21.29 kg/m2 21.29 kg/m2 eCW1 ([facility]) Body height 62 [in_i] 62 [in_i] eCW1 ([facility]) Body weight 116.4 [lb_av] 116.4 [lb_av] eCW1 ([facility]) Diastolic blood pressure 71 mm[Hg] 71 mm[Hg] eCW1 ([facility]) Systolic blood pressure 150 mm[Hg] 150 mm[Hg] e CW1 ([facility]) Body temperature 98.7 [degF] 98.7 [degF] eCW1 ( [facility]) Respiratory rate 18 /min 18 /min eCW1 ([facility]) Heart rate 63 /min 63 /min eCW1 ([facility]) Body mass index (BMI) [Ratio] 20.67 kg/m2 20.67 kg/m2 eCW1 ([facility]) Body height 62 [in_i] 62 [in_i] eCW1 ([facility]) Body weight [lb_av] eCW1 ([facility]) Body weight 50.576 kg 50.576 kg [facility] ([facility]) Body mass index (BMI) [Ratio] 20.4 kg/m2 20.4 k g/m2 [facility] ([facility]) Body weight 111.50 [lb_av] 111.50 [lb_av] MEDEN T ([facility]) Body height 62 [in_i] 62 [in_i] MEDENT ([facility]) 5'2" Diastolic blood pressure 68 mm[Hg] 68 mm[Hg] [facility] ([facility]) Systolic blood pressure 120 mm[Hg] 120 mm[Hg] M EDENT ([facility]) Body weight 51.257 kg 51.257 kg [facility] ([facility]) Body mass index (BMI) [Ratio] 20.7 kg/m2 20.7 k g/m2 [facility] ([facility]) Body weight 113.00 [lb_av] 113.00 [lb_av] [facility] Body height 62 [in_i] 62 [in_i] [facility] 5'2" Diastolic blood pressure 60 mm[Hg] 60 mm[Hg] [facility] ([facility]) Systolic blood pressure 112 mm[Hg] 112 mm[Hg] M EDENT ([facility]) Diastolic blood pressure 72 mm[Hg] 72 mm[Hg] eCW1 ([facility]) Systolic blood pressure 108 mm[Hg] 108 mm[Hg] e CW1 ([facility]) Body temperature 98.4 [degF] 98.4 [degF] eCW1 ( [facility]) Respiratory rate 18 /min 18 /min eCW1 ([facility]) Heart rate 77 /min 77 /min eCW1 ([facility]) Body mass index (BMI) [Ratio] 20.48 kg/m2 20.48 kg/m2 [facility] ([facility]) Body height [in_i] eCW1 ([facility]) Body weight 112 [lb_av] 112 [lb_av] eCW1 ([facility]) Diastolic blood pressure 84 mm[Hg] 84 mm[Hg] eCW1 ([facility]) Systolic blood pressure 130 mm[Hg] 130 mm[Hg] e CW1 ([facility]) Body temperature 99.0 [degF] 99.0 [degF] eCW1 ( [facility]) Respiratory rate 18 /min 18 /min eCW1 ([facility]) Heart rate 77 /min 77 /min eCW1 ([facility]) Body mass index (BMI) [Ratio] 20.12 kg/m2 20.12 kg/m2 W1 ([facility]) Body height [in_i] eCW1 ([facility]) Body weight 110 [lb_av] 110 [lb_av] eCW1 ([facility]) Body weight 49.216 kg 49.216 kg MEDENT ([facility], ) Body mass index (BMI) [Ratio] 19.8 kg/m2 19.8 k g/m2 MEDENT ([facility], ) Body weight 108.50 [lb_av] 108.50 [lb_av] MEDEN T ([facility], ) Body height 62 [in_i] 62 [in_i] [facility] ([facility], ) 5'2" Diastolic blood pressure 68 mm[Hg] 68 mm[Hg] MEDENT ([facility], ) Systolic blood pressure 108 mm[Hg] 108 mm[Hg] M EDENT ([facility], ) Diastolic blood pressure 79 mm[Hg] 79 mm[Hg] eCW1 ([facility]) Systolic blood pressure 139 mm[Hg] 139 mm[Hg] e CW1 ([facility]) Body temperature 98.4 [degF] 98.4 [degF] eCW1 ( [facility]) Respiratory rate 20 /min 20 /min eCW1 ([facility]) Heart rate 72 /min 72 /min eCW1 ([facility]) Body mass index (BMI) [Ratio] 20.48 kg/m2 20.48 kg/m2 eCW1 ([facility]) Body height [in_us] eCW1 ([facility]) Body weight Measured 112 [lb_av] 112 [lb_av] eC W1 ([facility]) [place] body weight 110 [lb_av] 110 [lb_av] MEDEN T ([facility], ) Body mass index (BMI) [Ratio] 21.0 kg/m2 21.0 k g/m2 [facility] Body weight 115.00 [lb_av] 115.00 [lb_av] MEDEN T ([facility], ) Body height 62 [in_i] 62 [in_i] MEDENT ([facility], ) 5'2" Respiratory rate 14 /min 14 /min MEDENT ( [facility], ) Heart rate 70 /min 70 /min MEDENT ([facility], ) Diastolic blood pressure 70 mm[Hg] 70 mm[Hg] [facility] Systolic blood pressure 120 mm[Hg] 120 mm[Hg] M EDENT ([facility], ) Diastolic blood pressure 67 mm[Hg] 67 mm[Hg] eCW1 ([facility]) Systolic blood pressure 140 mm[Hg] 140 mm[Hg] e CW1 ([facility]) Body temperature 98.3 [degF] 98.3 [degF] eCW1 ( [facility]) Respiratory rate 20 /min 20 /min eCW1 ([facility]) Heart rate 93 /min 93 /min eCW1 ([facility]) Body mass index (BMI) [Ratio] 21.40 kg/m2 21.40 kg/m2 eCW1 ([facility]) Body height [in_us] eCW1 ([facility]) Body weight Measured 117 [lb_av] 117 [lb_av] eC W1 ([facility]) Body weight 52.164 kg 52.164 kg MEDENT ([facility], ) Body mass index (BMI) [Ratio] 21.0 kg/m2 21.0 k g/m2 MEDENT ([facility]) Body weight 115.00 [lb_av] 115.00 [lb_av] MEDEN T ([facility]) Body height 62 [in_i] 62 [in_i] MEDENT ([facility]) 5'2" Body temperature 97.9 [degF] 97.9 [degF] MEDENT ([facility]) Diastolic blood pressure 68 mm[Hg] 68 mm[Hg] eCW1 ([facility]) Systolic blood pressure 122 mm[Hg] 122 mm[Hg] e CW1 ([facility]) Body temperature 98 [degF] 98 [degF] eCW1 ([facility]) Respiratory rate 20 /min 20 /min eCW1 ([facility]) Heart rate 66 /min 66 /min eCW1 ([facility]) Body mass index (BMI) [Ratio] 21.03 kg/m2 21.03 kg/m2 eCW1 ([facility]) Body height [in_us] eCW1 ([facility]) Body weight Measured 115 [lb_av] 115 [lb_av] eC W1 ([facility]) Patient Treatment Plan of Care Planned Activity Planned Date Details Description Data Source (s) Bisacodyl 10 MG Rectal Suppository [Dulcolax] 07/01/2020 12:00:00 A M EST eCW1 ([facility]) Bisacodyl 10 MG Rectal Suppository [Dulcolax] 07/01/2020 12:00:00 A M EST eCW1 ([facility]) Bisacodyl 10 MG Rectal Suppository [Dulcolax] 07/01/2020 12:00:00 A M EST eCW1 ([facility]) Diclofenac Sodium 50 MG Delayed Release Oral Tablet 04/09/20 12:00:00 AM EDT eCW1 ([facility]) Diclofenac Sodium 50 MG Delayed Release Oral Tablet 04/09/20 12:00:00 AM EDT eCW1 ([facility]) Omeprazole 20 MG Delayed Release Oral Capsule 11/15/2019 12:00:00 A M EDT eCW1 ([facility]) Omeprazole 20 MG Delayed Release Oral Capsule 11/15/2019 12:00:00 A M EDT eCW1 ([facility]) Physical Therapy evaluate and treat 11/15/2019 12:00:00 AM EDT eCW1 ([facility]) Omeprazole 40 MG Delayed Release Oral Capsule 11/15/2019 12:00:00 A M EDT eCW1 ([facility]) Physical Therapy evaluate and treat 11/15/2019 12:00:00 AM EDT eCW1 ([facility]) Omeprazole 40 MG Delayed Release Oral Capsule 11/15/2019 12:00:00 A M EDT eCW1 ([facility]) Physical Therapy evaluate and treat 11/15/2019 12:00:00 AM EDT eCW1 ([facility]) Omeprazole 40 MG Delayed Release Oral Capsule 11/15/2019 12:00:00 A M EDT eCW1 ([facility]) Physical Therapy evaluate and treat 11/15/2019 12:00:00 AM EDT eCW1 ([facility]) Omeprazole 40 MG Delayed Release Oral Capsule 11/15/2019 12:00:00 A M EDT eCW1 ([facility]) Walker - 11/01/2019 12:00:00 AM EDT e CW1 ([facility]) Walker - 11/01/2019 12:00:00 AM EDT e CW1 ([facility]) Walker - 11/01/2019 12:00:00 AM EDT e CW1 ([facility]) Walker - 11/01/2019 12:00:00 AM EDT e CW1 ([facility]) Walker - 11/01/2019 12:00:00 AM EDT e CW1 ([facility]) Walker - 11/01/2019 12:00:00 AM EDT e CW1 ([facility]) Walker - 11/01/2019 12:00:00 AM EDT e CW1 ([facility]) Walker - 11/01/2019 12:00:00 AM EDT e CW1 ([facility]) Walker - 11/01/2019 12:00:00 AM EDT e CW1 ([facility]) Walker - 11/01/2019 12:00:00 AM EDT e CW1 ([facility]) Walker - 11/01/2019 12:00:00 AM EDT e CW1 ([facility]) Walker - 11/01/2019 12:00:00 AM EDT e CW1 ([facility]) Walker - 11/01/2019 12:00:00 AM EDT e CW1 ([facility]) 24 HR venlafaxine 150 MG Extended Release Oral Capsule 10/05/2019 12:00:00 AM EDT eCW1 ([facility]) 24 HR venlafaxine 150 MG Extended Release Oral Capsule 10/05/2019 12:00:00 AM EDT eCW1 ([facility]) 24 HR venlafaxine 150 MG Extended Release Oral Capsule 10/05/2019 12:00:00 AM EDT eCW1 ([facility]) 24 HR venlafaxine 150 MG Extended Release Oral Capsule 10/05/2019 12:00:00 AM EDT eCW1 ([facility]) 24 HR venlafaxine 150 MG Extended Release Oral Capsule 10/05/2019 12:00:00 AM EDT eCW1 ([facility]) 24 HR venlafaxine 150 MG Extended Release Oral Capsule 10/05/2019 12:00:00 AM EDT eCW1 ([facility]) 24 HR venlafaxine 150 MG Extended Release Oral Capsule 10/05/2019 12:00:00 AM EDT eCW1 ([facility]) 24 HR venlafaxine 150 MG Extended Release Oral Capsule 10/05/2019 12:00:00 AM EDT eCW1 ([facility]) 24 HR venlafaxine 150 MG Extended Release Oral Capsule 10/05/2019 12:00:00 AM EDT eCW1 ([facility]) 24 HR venlafaxine 150 MG Extended Release Oral Capsule 10/05/2019 12:00:00 AM EDT eCW1 ([facility]) 24 HR venlafaxine 150 MG Extended Release Oral Capsule 10/05/2019 12:00:00 AM EDT eCW1 ([facility]) 24 HR venlafaxine 150 MG Extended Release Oral Capsule 10/05/2019 12:00:00 AM EDT eCW1 ([facility]) 24 HR venlafaxine 150 MG Extended Release Oral Capsule 10/05/2019 12:00:00 AM EDT eCW1 ([facility]) Fenofibrate 160 MG Oral Tablet 06/22/2019 12:00:00 AM EST eCW1 ([facility]) Fenofibrate 160 MG Oral Tablet 06/22/2019 12:00:00 AM EST eCW1 ([facility]) Fenofibrate 160 MG Oral Tablet 06/22/2019 12:00:00 AM EST eCW1 ([facility])
--- NOTE | 2020-07-10 20:27 | REPVR ---
PROCEDURE INFORMATION: Exam: CT Abdomen And Pelvis With Contrast Exam date and time: 07/10/2020 7:37 PM Age: 74 years old Clinical indication: Abdominal pain; Generalized; Additional info: Abdominal pain, anorexia, weight loss TECHNIQUE: Imaging protocol: Computed tomography of the abdomen and pelvis with intravenous contrast. Radiation optimization: All CT scans at this facility use at least one of these dose optimization techniques: automated exposure control; mA and/or kV adjustment per patient size (includes targeted exams where dose is matched to clinical indication); or iterative reconstruction. Contrast material: ISOVUE 370; Contrast volume: 100 ml; Contrast route: INTRAVENOUS (IV); COMPARISON: CT ABD/PEL W/IV CONTRAST ONLY 06/29/2020 8:24 PM FINDINGS: Lungs: There is complete atelectasis and consolidation in the lateral segment of the right middle lobe. Mild bronchiectasis noted in the atelectatic segment. Subsegmental atelectasis present in the right lower lobe. Calcified granuloma right lower lobe. Scattered small foci centrilobular type emphysema. Liver: The liver is low in density. 5 mm low-density lesion medial segment left lobe of the liver. Gallbladder and bile ducts: A structure that may represent a cystic duct remnant is noted containing a small focus of air. Pancreas: Mild atrophy. Pancreatic duct measures 3.2 mm in the head of the pancreas.. Spleen: 5 mm low-density lesion present within the spleen. Adrenal glands: Normal. No mass. Kidneys and ureters: 1.8 cm simple cyst lower pole right kidney. No hydronephrosis in either kidney. 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 Suture line noted at the level of the approximate rectosigmoid junction. Appendix: No evidence of appendicitis. Intraperitoneal space: Unremarkable. No free air. No significant fluid collection. Vasculature: Unremarkable. No abdominal aortic aneurysm. Lymph nodes: Unremarkable. No enlarged lymph nodes. Urinary bladder: Unremarkable as visualized. Reproductive: Unremarkable as visualized. Bones/joints: There is an underlying levoscoliosis of the thoracolumbar spine with moderately advanced degenerative changes noted at the level of the scoliosis. Advanced facet arthropathy noted in the lower lumbar spine and lumbosacral junction. Soft tissues: Unremarkable. IMPRESSION: 1. Jejuno jejunal intussusception involving proximal jejunum. No obstruction. 2. Progressive atelectasis and consolidation in the lateral segment of the right middle lobe. 3. Hepatic steatosis. 4. 5 mm low-density lesion in the left lobe of the liver. 5 mm low-density splenic lesion. In a low risk individual, these are likely benign. No follow-up recommended based on these findings. 5. Air and fluid containing structure present in the gallbladder fossa may represent a cystic duct remnant. No change from previous. 6. Simple cyst right kidney. No follow-up recommended. COMMENTS: Consistent with the [employer]'s Incidental Findings Committee white paper (J Am Gwendolyn Radiol 2018): Any incidental renal lesion less than 1 cm or classified as too small to characterize, or any incidental cystic renal lesion characterized as simple-appearing, is likely benign. No follow-up imaging is recommended for these lesions per consensus recommendations based on imaging criteria. Electronically signed by: Payton Carrillo On 07/10/2020 20:27:41 PM
--- NOTE | 2020-07-10 20:39 | REPVR ---
PROCEDURE INFORMATION: Exam: CT Chest With Contrast; Diagnostic Exam date and time: 07/10/2020 7:37 PM Age: 74 years old Clinical indication: Abnormal findings; Abnormal radiologic exam of lung or chest; Additional info: Persistent rml infiltrate TECHNIQUE: Imaging protocol: Diagnostic computed tomography of the chest with intravenous contrast. Radiation optimization: All CT scans at this facility use at least one of these dose optimization techniques: automated exposure control; mA and/or kV adjustment per patient size (includes targeted exams where dose is matched to clinical indication); or iterative reconstruction. Contrast material: ISOVUE 370; Contrast volume: 100 ml; Contrast route: INTRAVENOUS (IV); COMPARISON: CT Chest with contrast 07/04/2020 4:01 PM FINDINGS: Lungs: There is a focal narrowing (appears to be extrinsic) noted of the bronchus intermedius located immediately proximal to its bifurcation into the right middle lobe and right lower lobe bronchus. There is progressive atelectasis/consolidation in the lateral segment segment of the right middle lobe. Subsegmental atelectasis present in the superior segment of the right lower lobe and in the right lower lobe. Calcified granuloma right lower lobe. Hyperinflation noted of the right lower lobe. Bronchiectasis noted in the right lower lobe and the right middle lobe. Pleural spaces: Unremarkable. No pneumothorax. No pleural effusion. Heart: Unremarkable. No cardiomegaly. No pericardial effusion. Aorta: Unremarkable. No aortic aneurysm. Lymph nodes: Unremarkable. No enlarged lymph nodes. Bones/joints: Unremarkable. No acute fracture. Soft tissues: Unremarkable. IMPRESSION: Progressive atelectasis/consolidation in the right middle with evidence of compression/stenosis of the distal bronchus intermedius. Direct visualization recommended. There is also Subsegmental atelectasis with hyperinflation in the right lower lobe Electronically signed by: Payton Carrillo On 07/10/2020 20:39:21 PM
[2020-07-10] MEDS ORDERED: PRIMIDONE 50 MG TAB PO SCH (21:00)
--- NOTE | 2020-07-10 21:00 | ECGEPIP ---
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
[2020-07-10] MEDS ORDERED: fentaNYL 100 MCG/2 ML INJECTION (J3010) IV ONE (21:30)
--- OUTSIDE RECORDS SUMMARY | 2020-07-10 22:25 | CCD ---
Author Author [facility] Organization [facility] Address Unknown Phone Unavailable Care Team Providers Care Utility Driver Name Role Phone Lesley Miles MD Unavailable Unavailable Mollison, Lesley Roger MD Unavailable Unavailable MollisonLesley MD Unavailable Unavailable Mollison, Leslye Roger MD Unavailable Unavailable Mollison, Lesley Roger [...] is protected by Article 27-F of the [facility] Public Health law. If you continue you may have access to information: Regarding HIV / AIDS; Provided by facilities licensed or operated by the [facility] Office of Mental Health; or Provided by the [facility] Office for People With Developmental Disabilities. If such information is present, then the following [facility] mandated warning applies: This information has [...] law may result in a fine or mcfp sentence or both. A general authorization for the release of medical or other information is NOT sufficient authorization for further disc losure. Allergies and Adverse Reactions Type Description Substance Reaction Status Data Source(s ) morphine morphine Morphine Sulfate 15 MG Extended Release Oral Tablet headache, restless Active eCW1 ([facility]) morphine morphine Morphine Sulfate 15 MG Extended Release Oral Tablet headache, restless Active eCW1 ([facility]) morphine morphine Morphine Sulfate 15 MG Extended Release Oral Tablet headache, restless Active eCW1 ([facility]) Encounters Encounter Providers Location Date Indications Data Source(s ) Unknown [address] [facility] [address] 07/07/2020 12:00:00 AM EST eCW1 ([facility]) Unknown [address] [facility] [address] 07/03/2020 12:00:00 AM EST eCW1 ([facility]) Outpatient Attender: Samuel Lyon MD Main office - [facility] 07/02/2020 11:00:00 AM EST MEDENT ([facility] ) Unknown [address] [facility] [address] 07/01/2020 12:00:00 AM EST eCW1 ([facility]) Unknown [address] [facility] [address] 06/25/2020 12:00:00 AM EST eCW1 ([facility]) Unknown [address] [facility] [address] 06/23/2020 12:00:00 AM EST eCW1 ([facility]) Unknown [address] [facility] [address] 06/19/2020 12:00:00 AM EST eCW1 ([facility]) Unknown [address] [facility] [address] 06/18/2020 12:00:00 AM EST eCW1 ([facility]) (TCM) Transition of Care Visit [address] [place] [address] 06/11/2020 12:00:00 AM EST eCW1 ([facility]) Unknown [address] [facility] [address] 06/05/2020 12:00:00 AM EST eCW1 ([facility]) Unknown [address] [facility] [place] [address] 04/25/2020 12:00:00 AM EST eCW1 ([facility]) Office Visit Attender: Samuel Lyon MD Main office - [facility] 04/24/2020 12:45:00 PM EST MEDENT ([facility] ) Outpatient [address] [facility] [address] 04/09/2020 12:00:00 AM EDT eCW1 ([facility]) Outpatient [address] [facility] [address] 03/21/2020 12:00:00 AM EDT eCW1 ([facility]) Unknown [address] [facility] [address] 12/04/2019 12:00:00 AM EDT eCW1 [facility]) Unknown [address] [place] [address], [place] [address] 11/23/2019 12:00:00 AM EDT eCW1 ([facility]) Outpatient [address] [place] [address] [place] [address] 11/15/2019 12:00:00 AM EDT [facility]CW1 [facility] [address] [place] [address] 11/02/2019 12:00:00 AM EDT eCW1 ([facility]) Outpatient [address] [place] [address] [place] [address] 11/01/2019 12:00:00 AM EDT eCW1 ([facility]) Outpatient Attender: Ann Marie Tolliver/Bryan/Matthew/Alanis nj 10/29/2019 10:30:00 AM EDT MEDENT ([facility]) [address] [place] [address] 10/29/2019 12:00:00 AM EDT eCW1 ([facility]) Outpatient Attender: Samuel Lyon MD Main office - [facility] 10/17/2019 02:00:00 PM EDT MEDENT ([facility]) [address] [place] [address] 10/10/2019 12:00:00 AM EDT eCW1 ([facility]) [address] [place] [address] 10/08/2019 12:00:00 AM EDT eCW1 ([facility]) [address] [address] 10/05/2019 12:00:00 AM EDT eCW1 ([facility]) [facility] Kwadwo [address] [place] [address], [place] [address] 10/05/2019 12:00:00 AM EDT eCW1 ([facility]) [address] [address] 10/04/2019 12:00:00 AM EDT eCW1 ([facility]) [address] [address] 10/02/2019 12:00:00 AM EDT eCW1 ([facility]) [address] [address] 10/02/2019 12:00:00 AM EDT eCW1 ([facility]) [address] [address] 10/02/2019 12:00:00 AM EDT eCW1 ([facility] [address] [place] [address] 10/01/2019 12:00:00 AM EDT eCW1 ([facility]) [address] [address] 09/28/2019 12:00:00 AM EDT eCW1 ([facility]) Outpatient Attender: Samuel Lyon MD Main office - [facility] 09/19/2019 12:45:00 PM EDT MEDENT ([facility] [address] [address] 08/22/2019 12:00:00 AM EDT eCW1 ([facility]) [address] [place] [address] 08/22/2019 12:00:00 AM EDT eCW1 ([facility]) [address] [place] [address] 08/22/2019 12:00:00 AM EDT eCW1 ([facility]) [address] [address] 08/04/2019 12:00:00 AM EST eCW1 ([facility]) [address] [address] 07/17/2019 12:00:00 AM EST eCW1 ([facility]) [address] [address] 06/22/2019 12:00:00 AM EST eCW1 ([facility]) Outpatient Attender: Kana Tolliver/Jorge/Swathi indl 06/12/2019 09:30:00 AM EST [facility] ([facility] [address] [address] 06/01/2019 12:00:00 AM EST eCW1 ([facility]) Immunizations Vaccine Date Status Description Data Source(s) influenza, recombinant, quadrIvalent,injectable, prese rvative free 03/21/2020 12:58:00 PM EDT completed eCW1 ([facility]) influenza, recombinant, quadrIvalent,injectable, prese rvative free 03/21/2020 12:58:00 PM EDT completed eCW1 ([facility]) influenza, recombinant, quadrIvalent,injectable, prese rvative free 03/21/2020 12:58:00 PM EDT completed eCW1 ([facility]) influenza, recombinant, quadrIvalent,injectable, prese rvative free 03/21/2020 12:58:00 PM EDT completed eCW1 ([facility]) influenza, recombinant, quadrIvalent,injectable, prese rvative free 03/21/2020 12:58:00 PM EDT completed eCW1 ([facility]) influenza, recombinant, quadrIvalent,injectable, prese rvative free 03/21/2020 12:58:00 PM EDT completed eCW1 ([facility]) influenza, recombinant, quadrIvalent,injectable, prese rvative free 03/21/2020 12:58:00 PM EDT completed eCW1 ([facility]) influenza, recombinant, quadrIvalent,injectable, prese rvative free 03/21/2020 12:58:00 PM EDT completed eCW1 ([facility]) influenza, recombinant, quadrIvalent,injectable, prese rvative free 03/21/2020 12:58:00 PM EDT completed eCW1 ([facility]) influenza, recombinant, quadrIvalent,injectable, prese rvative free 03/21/2020 12:58:00 PM EDT completed eCW1 ([facility]) influenza, recombinant, quadrIvalent,injectable, prese rvative free 03/21/2020 12:58:00 PM EDT completed eCW1 ([facility]) influenza, recombinant, quadrIvalent,injectable, prese rvative free 03/21/2020 12:58:00 PM EDT completed eCW1 ([facility]) Medications Medication Brand Name Start Date Product Form Dose Route Admi nistrative Instructions Pharmacy Instructions Status Indications Reaction Description Data Source(s) Donepezil hydrochloride 10 MG Oral Tablet Donepezil HCL 07/02/2020 12:00:00 AM EST active MEDENT ([facility]) Bisacodyl 10 MG Rectal Suppository [Dulcolax] Dulcolax 10 MG Dulcolax 10 MG 07/01/2020 12:00:00 AM EST 1.0 {suppository_as_needed} active Dulcolax 10 MG eCW1 ([facility]) Bisacodyl 10 MG Rectal Suppository [Dulcolax] Dulcolax 10 MG Dulcolax 10 MG 07/01/2020 12:00:00 AM EST 1.0 {suppository_as_needed} active Dulcolax 10 MG eCW1 ([facility]) Bisacodyl 10 MG Rectal Suppository [Dulcolax] Dulcolax 10 MG Dulcolax 10 MG 07/01/2020 12:00:00 AM EST 1.0 {suppository_as_needed} active Dulcolax 10 MG eCW1 ([facility]) Diclofenac Sodium 50 MG Delayed Release Oral Tablet Diclofen ac Sodium 50 MG 04/09/2020 12:00:00 AM EDT 1.0 {tablet} active Diclofenac Sodium 50 MG eCW1 ([facility]) Diclofenac Sodium 50 MG Delayed Release Oral Tablet Diclofen ac Sodium 50 MG 04/09/2020 12:00:00 AM EDT 1.0 {tablet} active Diclofenac Sodium 50 MG eCW1 ([facility]) Diclofenac Sodium 50 MG Delayed Release Oral Tablet Diclofen ac Sodium 50 MG 04/09/2020 12:00:00 AM EDT 1.0 {tablet} active Diclofenac Sodium 50 MG eCW1 ([facility]) POLYETHYLENE GLYCOL 3350 142 MG/ML Oral Solution [Miralax] M iralax 02/01/2020 12:00:00 AM EDT active Jorge KEEN ([facility], ) Omeprazole 20 MG Delayed Release Oral Capsule Omeprazole 20 MG 11/15/2019 12:00:00 AM EDT active Omeprazo le 20 MG eCW1 ([facility]) Omeprazole 20 MG Delayed Release Oral Capsule Omeprazole 20 MG 11/15/2019 12:00:00 AM EDT active Omeprazo le 20 MG eCW1 ([facility]) Omeprazole 40 MG Delayed Release Oral Capsule Omeprazole 40 MG 11/15/2019 12:00:00 AM EDT active Omeprazo le 40 MG eCW1 ([facility]) Physical Therapy evaluate and treat UNK 11/15/2019 12:00:00 AM EDT active Physical Therapy evaluate and tr eat eCW1 ([facility]) Physical Therapy evaluate and treat UNK 11/15/2019 12:00:00 AM EDT active Physical Therapy evaluate and tr eat eCW1 ([facility]) Omeprazole 20 MG Delayed Release Oral Capsule Omeprazole 20 MG 11/15/2019 12:00:00 AM EDT active Omeprazo le 20 MG eCW1 ([facility]) Omeprazole 40 MG Delayed Release Oral Capsule Omeprazole 40 MG 11/15/2019 12:00:00 AM EDT active Omeprazo le 40 MG eCW1 ([facility]) Physical Therapy evaluate and treat UNK 11/15/2019 12:00:00 AM EDT active Physical Therapy evaluate and tr eat eCW1 ([facility]) Omeprazole 20 MG Delayed Release Oral Capsule Omeprazole 20 MG 11/15/2019 12:00:00 AM EDT active Omeprazo le 20 MG eCW1 ([facility]) Omeprazole 40 MG Delayed Release Oral Capsule Omeprazole 40 MG 11/15/2019 12:00:00 AM EDT active Omeprazo le 40 MG eCW1 ([facility]) Omeprazole 40 MG Delayed Release Oral Capsule Omeprazole 40 MG 11/15/2019 12:00:00 AM EDT active Omeprazo le 40 MG eCW1 ([facility]) Physical Therapy evaluate and treat UNK 11/15/2019 12:00:00 AM EDT active Physical Therapy evaluate and tr eat eCW1 ([facility]) Omeprazole 20 MG Delayed Release Oral Capsule Omeprazole 20 MG 11/15/2019 12:00:00 AM EDT active Omeprazo le 20 MG eCW1 ([facility]) Walker - Walker - 11/01/2019 12:00:00 AM EDT activ e Walker - eCW1 ([facility]) Walker - Walker - 11/01/2019 12:00:00 AM EDT suspe nded Walker - eCW1 ([facility]) Walker - Walker - 11/01/2019 12:00:00 AM EDT activ e Walker - eCW1 ([facility]) Walker - Walker - 11/01/2019 12:00:00 AM EDT activ e Walker - eCW1 ([facility]) Walker - Walker - 11/01/2019 12:00:00 AM EDT activ e Walker - eCW1 ([facility]) Walker - Walker - 11/01/2019 12:00:00 AM EDT activ e Walker - eCW1 ([facility]) Walker - Walker - 11/01/2019 12:00:00 AM EDT activ e Walker - eCW1 ([facility]) Walker - Walker - 11/01/2019 12:00:00 AM EDT activ e Walker - eCW1 ([facility]) Walker - Walker - 11/01/2019 12:00:00 AM EDT activ e Walker - eCW1 ([facility]) Walker - Walker - 11/01/2019 12:00:00 AM EDT activ e Walker - eCW1 ([facility]) Walker - Walker - 11/01/2019 12:00:00 AM EDT activ e Walker - eCW1 ([facility]) Walker - Walker - 11/01/2019 12:00:00 AM EDT activ e as directed eCW1 ([facility]) Walker - Walker - 11/01/2019 12:00:00 AM EDT activ e Walker - eCW1 ([facility]) Walker - Walker - 11/01/2019 12:00:00 AM EDT activ e Walker - eCW1 ([facility]) Walker - Walker - 11/01/2019 12:00:00 AM EDT activ e Walker - eCW1 ([facility]) Walker - Walker - 11/01/2019 12:00:00 AM EDT activ e Walker - eCW1 ([facility]) Walker - Walker - 11/01/2019 12:00:00 AM EDT suspe nded Walker - eCW1 ([facility]) 24 HR venlafaxine 150 MG Extended Releas e Oral Capsule Venlafaxine HCl ER 150 MG Venlafaxine HCl ER 150 MG 10/05/2019 12:00:00 AM EDT 1 .0 {capsule_with_food} active Venlafaxine HCl ER 1 50 MG eCW1 ([facility]) 24 HR venlafaxine 150 MG Extended Releas e Oral Capsule Venlafaxine HCl ER 150 MG Venlafaxine HCl ER 150 MG 10/05/2019 12:00:00 AM EDT active 1 capsule with food eCW1 ([facility]) 24 HR venlafaxine 150 MG Extended Releas e Oral Capsule Venlafaxine HCl ER 150 MG Venlafaxine HCl ER 150 MG 10/05/2019 12:00:00 AM EDT active 1 capsule with food eCW1 ([facility]) 24 HR venlafaxine 150 MG Extended Releas e Oral Capsule Venlafaxine HCl ER 150 MG Venlafaxine HCl ER 150 MG 10/05/2019 12:00:00 AM EDT 1 .0 {capsule_with_food} active Venlafaxine HCl ER 1 50 MG eCW1 ([facility]) 24 HR venlafaxine 150 MG Extended Releas e Oral Capsule Venlafaxine HCl ER 150 MG Venlafaxine HCl ER 150 MG 10/05/2019 12:00:00 AM EDT 1 .0 {capsule_with_food} active Venlafaxine HCl ER 1 50 MG eCW1 ([facility]) 24 HR venlafaxine 150 MG Extended Releas e Oral Capsule Venlafaxine HCl ER 150 MG Venlafaxine HCl ER 150 MG 10/05/2019 12:00:00 AM EDT 1 .0 {capsule_with_food} active Venlafaxine HCl ER 1 50 MG eCW1 ([facility]) 24 HR venlafaxine 150 MG Extended Releas e Oral Capsule Venlafaxine HCl ER 150 MG Venlafaxine HCl ER 150 MG 10/05/2019 12:00:00 AM EDT 1 .0 {capsule_with_food} active Venlafaxine HCl ER 1 50 MG eCW1 ([facility]) 24 HR venlafaxine 150 MG Extended Releas e Oral Capsule Venlafaxine HCl ER 150 MG Venlafaxine HCl ER 150 MG 10/05/2019 12:00:00 AM EDT 1 .0 {capsule_with_food} active Venlafaxine HCl ER 1 50 MG eCW1 ([facility]) 24 HR venlafaxine 150 MG Extended Releas e Oral Capsule Venlafaxine HCl ER 150 MG Venlafaxine HCl ER 150 MG 10/05/2019 12:00:00 AM EDT 1 .0 {capsule_with_food} active Venlafaxine HCl ER 1 50 MG eCW1 ([facility]) 24 HR venlafaxine 150 MG Extended Releas e Oral Capsule Venlafaxine HCl ER 150 MG Venlafaxine HCl ER 150 MG 10/05/2019 12:00:00 AM EDT 1 .0 {capsule_with_food} active Venlafaxine HCl ER 1 50 MG eCW1 ([facility]) 24 HR venlafaxine 150 MG Extended Releas e Oral Capsule Venlafaxine HCl ER 150 MG Venlafaxine HCl ER 150 MG 10/05/2019 12:00:00 AM EDT 1 .0 {capsule_with_food} active Venlafaxine HCl ER 1 50 MG eCW1 ([facility]) 24 HR venlafaxine 150 MG Extended Releas e Oral Capsule Venlafaxine HCl ER 150 MG Venlafaxine HCl ER 150 MG 10/05/2019 12:00:00 AM EDT 1 .0 {capsule_with_food} active Venlafaxine HCl ER 1 50 MG eCW1 ([facility]) 24 HR venlafaxine 150 MG Extended Releas e Oral Capsule Venlafaxine HCl ER 150 MG Venlafaxine HCl ER 150 MG 10/05/2019 12:00:00 AM EDT 1 .0 {capsule_with_food} active Venlafaxine HCl ER 1 50 MG eCW1 ([facility]) 24 HR venlafaxine 150 MG Extended Releas e Oral Capsule Venlafaxine HCl ER 150 MG Venlafaxine HCl ER 150 MG 10/05/2019 12:00:00 AM EDT 1 .0 {capsule_with_food} active Venlafaxine HCl ER 1 50 MG eCW1 ([facility]) 24 HR venlafaxine 150 MG Extended Releas e Oral Capsule Venlafaxine HCl ER 150 MG Venlafaxine HCl ER 150 MG 10/05/2019 12:00:00 AM EDT 1 .0 {capsule_with_food} active Venlafaxine HCl ER 1 50 MG eCW1 ([facility]) 24 HR venlafaxine 150 MG Extended Releas e Oral Capsule Venlafaxine HCl ER 150 MG Venlafaxine HCl ER 150 MG 10/05/2019 12:00:00 AM EDT 1 .0 {capsule_with_food} active Venlafaxine HCl ER 1 50 MG eCW1 ([facility]) 24 HR venlafaxine 150 MG Extended Releas e Oral Capsule Venlafaxine HCl ER 150 MG Venlafaxine HCl ER 150 MG 10/05/2019 12:00:00 AM EDT 1 .0 {capsule_with_food} active Venlafaxine HCl ER 1 50 MG eCW1 ([facility]) 24 HR venlafaxine 150 MG Extended Releas e Oral Capsule Venlafaxine HCl ER 150 MG Venlafaxine HCl ER 150 MG 10/05/2019 12:00:00 AM EDT 1 .0 {capsule_with_food} active Venlafaxine HCl ER 1 50 MG eCW1 ([facility]) Primidone 50 MG Oral Tablet Primidone 09/19/2019 12:00:00 AM EDT active MEDENT ([facility] ) Fenofibrate 160 MG Oral Tablet Fenofibrate 160 MG 06/22/2019 12:00: 00 AM EST active 1 tab eCW1 ([facility]) Fenofibrate 160 MG Oral Tablet Fenofibrate 160 MG 06/22/2019 12:00: 00 AM EST active 1 tab eCW1 ([facility]) Fenofibrate 160 MG Oral Tablet Fenofibrate 160 MG 06/22/2019 12:00: 00 AM EST active 1 tab eCW1 ([facility]) Fenofibrate 160 MG Oral Tablet Fenofibrate 160 MG 06/22/2019 12:00: 00 AM EST active 1 tab eCW1 ([facility]) Insurance Providers Payer name Policy type / Coverage type Policy ID Covered libertarian ID Covered libertarian's relationship to alcantara Policy [place] Plan Information MEDICARE COMPLETE [id number] SP [id number] MEDICARE COMPLETE-[facility] [id number] S [id number] [facility] [id number] SP [id number] MEDICARE COMPLETE [id number] SP [id number] MEDICARE [id number] SP [id number] [facility] [id number] SP [id number] [facility] [id number] SP [id number] Problems, Conditions, and Diagnoses Code Display Name Description Problem Type Effective Dates Data Source(s) 652181380 Isolated seizures Isolated seizures Problem 07/02 12:00:00 AM EST MEDENT ([facility] ) G30.1 [id number] Alzheimer's disease with late onset Probl em 07/01/2020 12:00:00 AM EST eCW1 ([facility]) K59.00 Constipation Constipation, unspecified constipation ty pe Problem 07/01/2020 12:00:00 AM EST eCW1 ([facility]) G45.9 [id number] TIA (transient ischemic attack) Problem 06/11/2020 12:00:00 AM EST eCW1 ([facility]) R93.89 [id number] Abnormal chest xray Problem 06/11/2020 12:00 :00 AM EST eCW1 ([facility]) F51.3 [id number] Somnambulism Problem 06/11/2020 12:00:00 AM EST eCW1 ([facility]) G89.29 Chronic pain Other chronic pain Problem 04/08/2020 12:0 0:00 AM EDT eCW1 ([facility]) E55.9 Vitamin D deficiency Vitamin D deficiency Problem 11/01/2019 12:00:00 AM EDT eCW1 ([facility]) E55.9 Vitamin D deficiency Vitamin D deficiency Problem 11/01/2019 12:00:00 AM EDT eCW1 ([facility]) R63.0 26878782 Decreased appetite Problem 10/10/2019 12:00: 00 AM EDT eCW1 ([facility]) R63.0 68318288 Decreased appetite Problem 10/10/2019 12:00: 00 AM EDT eCW1 ([facility]) 51417083 Diplopia Diplopia Problem 09/19/2019 12:00:00 AM ED T MEDENT ([facility]) 735612522 Essential tremor Essential tremor Problem 09/19/2019 12 :00:00 AM EDT MEDENT ([facility]) 704747054 Lesion of ulnar nerve Lesion of ulnar nerve Problem 09/19/2019 12:00:00 AM EDT MEDENT ([facility]) [id number] Carpal tunnel syndrome of left wrist Car pal tunnel syndrome of left wrist Problem 09/19/2019 12:00:00 AM EDT MEDENT ([facility]) 366169324 Lumbar radiculopathy Lumbar radiculopathy Problem 07/18/2019 12:00:00 AM EST MEDENT ([facility] ) [id number] Low back pain Low back pain Problem 07/18/2019 12:00:00 AM EST MEDENT ([facility] ) 741299575 Spondylolysis Spondylolysis Problem 07/18/2019 12:00:00 AM EST MEDENT ([facility] ) 019706579 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 Problem 07/18/2019 12:00:00 AM EST MEDENT ([facility] ) 82119460 Neck pain Neck pain Problem 07/18/2019 12:00:00 AM ES T MEDENT ([facility] ) [id number] 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 Problem 07/18/2019 12:00:00 AM EST MEDENT ([facility] ) E78.5 Dyslipidemia Dyslipidemia Problem 06/22/2019 12:00:00 A M EST eCW1 ([facility]) E78.5 [id number] Dyslipidemia Problem 06/22/2019 12:00:00 AM EST eCW1 ([facility]) F32.9 Depressive disorder Depression, unspecified depression type Problem 06/01/2019 12:00:00 AM EST eCW1 ([facility]) K21.9 241593662 Gastroesophageal ref lux disease, esophagitis presence not specified Problem 06/01/2019 12:00:00 AM EST eCW1 ([facility]) I63.9 645709297 Cerebrovascular accident (CVA), unspecifi ed mechanism Problem 06/01/2019 12:00:00 AM EST eCW1 ([facility]) K21.9 048725912 Gastroesophageal ref lux disease, esophagitis presence not specified Problem 06/01/2019 12:00:00 AM EST eCW1 ([facility]) F32.9 92703872 Depression, unspecified depression type P roblem 06/01/2019 12:00:00 AM EST eCW1 ([facility]) I63.9 750024980 Cerebrovascular accident (CVA), unspecifi ed mechanism Problem 06/01/2019 12:00:00 AM EST eCW1 ([facility]) Surgeries/Procedures Procedure Description Date Indications Data Source(s) [...] Joint/Bursa/Ganglion Cyst 06/12/2019 12:00:00 AM EST MEDENT ([facility] ) X-Ray Shoulder Complete 06/12/2019 12:00:00 AM EST MEDENT ([facility], ) Office Visit, New Pt., Level 3 FC 06/01/2019 12:00:00 AM EST eCW1 ([facility]) Office Visit, New Pt., Level 4 FC 06/01/2019 12:00:00 AM EST eCW1 ([facility]) Results ID Date Data Source [id number] 06/21/2020 06:39:00 PM EST [facility] Name Value Range Interpretation Code Description Data Itzel rce(s) Supporting Document(s) SARS coronavirus 2 RNA [Presence] in Res piratory specimen by MICHAEL with probe detection NEGATIVE [facility] This lab was ordered by [facility] a nd reported by [facility]. ID Date Data Source [id number] 06/01/2020 06:11:00 PM EST [facility] Name Value Range Interpretation Code Description Data Itzel rce(s) Supporting Document(s) SARS coronavirus 2 RNA [Presence] in Res piratory specimen by MICHAEL with probe detection [facility] This lab was ordered by [facility] a nd reported by [facility]. ID Date Data Source [id number] 01/02/2020 10:00:00 AM EDT [facility] Name Value Range Interpretation Code Description Data Itzel rce(s) Supporting Document(s) SARS coronavirus 2 RNA [facility] This lab was ordered by [facility] and reported by [facility]. ID Date Data Source [id number] 10/01/2019 09:06:00 AM EDT [facility] ([facility] ([facility]) Performed at: [facility] [id number] Mold Maker: Og Velarde MD, Phone: [phone] Acetylcholine receptor modulation Ab [Units/volume] in Serum [...] in Serum or Plasma 15.6 ug/L 2.0-32.8 [facility] ([facility], ) Specimen Comment: Test(s) 302043-Jafquwd B6; 542221-Col. B1, Whole Blood Specimen Comment: was developed and its performance characteristics Specimen Comment: determined by [employer]. It has not been cleared or approved Specimen Comment: by the Food and Drug Administration. Specimen Comment: Test(s) 625905-Glcuaxt E(Alpha Tocopherol); 495131- Specimen Comment: Vitamin E(Gamma Tocopherol) Specimen Comment: was developed and its performance characteristics Specimen Comment: determined by [facility]. It has not been cleared or approved Specimen Comment: by the Food and Drug Administration. Specimen Comment: Test(s) 708324-CLgH Blocking Abs, Serum Specimen Comment: results are labeled for research purposes only by the Specimen Comment: assay's metal neutralizer. The performance characteristics of Specimen Comment: this assay have not been established by the metal neutralizer. Specimen Comment: The result should not be used for treatment or for Specimen Comment: diagnostic purposes without confirmation of the diagnosis Specimen Comment: by another medically established diagnostic product or Specimen Comment: procedure. The performance characteristics were determined Specimen Comment: by [facility]. Striated muscle Ab [Presence] in Serum Laboratory test result [facility] ([facility], ) Performed at: [facility] [id number] Mold Maker: Og Velarde MD, Phone: [phone] Performed at: [facility] [address] [place] [id number] Mold Maker: Soren Rios MD, Phone: [phone] Performed at: [facility] [id number] Mold Maker: Shena Lau MD, Phone: [phone] Muscle specific receptor tyrosine kinase Ab [Titer] in Serum or Plasma Laboratory test result [facility], ) <content>Reference Range:</content>
<content>Negative: <1.0</content>
<content>Positive: [...] 2014;52:90-100.</content>
<content>2. Aneesh BATISTA et al. PNAS 2013;110(22);92671-71801.</content>
<content>3. Jay Donis et al. Neurology 2006;67:505-507.</content>
<content>This test was developed and its performance characteristics</content>
<content>determined by [facility]. It has not been cleared or approved</content>
<content>by the Food and Drug Administration.</content>
<content></content> ID Date Data Source [id number] 10/01/2019 09:06:00 AM EDT [facility] ([facility] ) Name Value Range Interpretation Code Description Data Itzel rce(s) Supporting Document(s) Vitamin E(Gamma Tocopherol) 0.3 mg/L 0.5-4.9 [facility] ([facility], ) Reference intervals for alpha and gamma- tocopherol determined from National Health and Nutrition Examination Survey, [id number]. Individuals with alpha-tocopherol levels less than 5.0 mg/L are considered vitamin E deficient. Vitamin E(Alpha Tocopherol) 12.8 mg/L 9.0-29.0 [facility] ([facility], ) ID Date Data Source [id number] 10/01/2019 09:06:00 AM EDT [facility] ([facility] ) Name Value Range Interpretation Code Description Data Itzel rce(s) Supporting Document(s) Vitamin B12 Level Laboratory test result [facility] ([facility] ) VITAMIN B12 [...] Never Smoker completed Never S moker eCW1 ([facility]) Smoking 07/01/2020 12:00:00 AM EST Never Smoker completed Never S moker eCW1 ([facility]) Smoking 07/01/2020 12:00:00 AM EST Never Smoker completed Never S moker eCW1 ([facility]) Smoking 06/11/2020 12:00:00 AM EST Never Smoker completed Never S moker eCW1 ([facility]) Smoking 06/11/2020 12:00:00 AM EST Never Smoker completed Never S moker eCW1 ([facility]) Smoking 06/11/2020 12:00:00 AM EST Never Smoker completed Never S moker eCW1 ([facility]) Smoking 06/11/2020 12:00:00 AM EST Never Smoker completed Never S moker eCW1 ([facility]) Smoking 06/11/2020 12:00:00 AM EST Never Smoker completed Never S moker eCW1 ([facility]) Smoking 04/09/2020 12:00:00 AM EDT Never Smoker completed Never S moker eCW1 ([facility]) Smoking 04/09/2020 12:00:00 AM EDT Never Smoker completed Never S moker eCW1 ([facility]) Smoking 04/09/2020 12:00:00 AM EDT Never Smoker completed Never S moker eCW1 ([facility]) Smoking 03/21/2020 12:00:00 AM EDT Never Smoker completed Never S moker eCW1 ([facility]) Smoking 11/15/2019 12:00:00 AM EDT Never Smoker completed Never S moker eCW1 ([facility]) Smoking 11/15/2019 12:00:00 AM EDT Never Smoker completed Never S moker eCW1 ([facility]) Smoking 11/15/2019 12:00:00 AM EDT Never Smoker completed Never S moker eCW1 ([facility]) Smoking 11/15/2019 12:00:00 AM EDT Never Smoker completed Never S moker eCW1 ([facility]) Vital Signs ID Date Data Source UNK Name Value Range Interpretation Code Description Data Source(s) Diastolic blood pressure 60 mm[Hg] 60 mm[Hg] eCW1 ([facility]) Systolic blood pressure 133 mm[Hg] 133 mm[Hg] e CW1 ([facility]) Body temperature 97.2 [degF] 97.2 [degF] eCW1 ( [facility]) Respiratory rate 18 /min 18 /min eCW1 ([facility]) Heart rate 60 /min 60 /min eCW1 ([facility]) Body mass index (BMI) [Ratio] 20.30 kg/m2 20.30 kg/m2 eCW1 ([facility]) Body height 62 [in_i] 62 [in_i] eCW1 ([facility]) Body weight 111 [lb_av] 111 [lb_av] eCW1 ([facility]) Diastolic blood pressure 60 mm[Hg] 60 mm[Hg] eCW1 ([facility]) Systolic blood pressure 140 mm[Hg] 140 mm[Hg] e CW1 ([facility]) Body temperature 96.6 [degF] 96.6 [degF] eCW1 ( [facility]) Respiratory rate 18 /min 18 /min eCW1 ([facility]) Heart rate 69 /min 69 /min eCW1 ([facility]) Body mass index (BMI) [Ratio] 21.29 kg/m2 21.29 kg/m2 eCW1 ([facility]) Body height 62 [in_i] 62 [in_i] eCW1 ([facility]) Body weight 116.4 [lb_av] 116.4 [lb_av] eCW1 ([facility]) Diastolic blood pressure 71 mm[Hg] 71 mm[Hg] eCW1 ([facility]) Systolic blood pressure 150 mm[Hg] 150 mm[Hg] e CW1 ([facility]) Body temperature 98.7 [degF] 98.7 [degF] eCW1 ( [facility]) Respiratory rate 18 /min 18 /min eCW1 ([facility]) Heart rate 63 /min 63 /min eCW1 ([facility]) Body mass index (BMI) [Ratio] 20.67 kg/m2 20.67 kg/m2 eCW1 ([facility]) Body height 62 [in_i] 62 [in_i] eCW1 ([facility]) Body weight [lb_av] eCW1 ([facility]) Body weight 50.576 kg 50.576 kg [facility] ([facility]) Body mass index (BMI) [Ratio] 20.4 kg/m2 20.4 k g/m2 [facility] ([facility]) Body weight 111.50 [lb_av] 111.50 [lb_av] [facility] T ([facility]) Body height 62 [in_i] 62 [in_i] [facility] ([facility]) 5'2" Diastolic blood pressure 68 mm[Hg] 68 mm[Hg] [facility] ([facility]) Systolic blood pressure 120 mm[Hg] 120 mm[Hg] M EDENT ([facility]) Body weight 51.257 kg 51.257 kg [facility] ([facility]) Body mass index (BMI) [Ratio] 20.7 kg/m2 20.7 k g/m2 [facility] ([facility]) Body weight 113.00 [lb_av] 113.00 [lb_av] [facility] Body height 62 [in_i] 62 [in_i] [facility] 5'2" Diastolic blood pressure 60 mm[Hg] 60 mm[Hg] [facility] ([facility]) Systolic blood pressure 112 mm[Hg] 112 mm[Hg] M EDENT ([facility]) Diastolic blood pressure 72 mm[Hg] 72 mm[Hg] eCW1 ([facility]) Systolic blood pressure 108 mm[Hg] 108 mm[Hg] e CW1 ([facility]) Body temperature 98.4 [degF] 98.4 [degF] eCW1 ( [facility]) Respiratory rate 18 /min 18 /min eCW1 ([facility]) Heart rate 77 /min 77 /min eCW1 ([facility]) Body mass index (BMI) [Ratio] 20.48 kg/m2 20.48 kg/m2 [facility] ([facility]) Body height [in_i] eCW1 ([facility]) Body weight 112 [lb_av] 112 [lb_av] eCW1 ([facility]) Diastolic blood pressure 84 mm[Hg] 84 mm[Hg] eCW1 ([facility]) Systolic blood pressure 130 mm[Hg] 130 mm[Hg] e CW1 ([facility]) Body temperature 99.0 [degF] 99.0 [degF] eCW1 ( [facility]) Respiratory rate 18 /min 18 /min eCW1 ([facility]) Heart rate 77 /min 77 /min eCW1 ([facility]) Body mass index (BMI) [Ratio] 20.12 kg/m2 20.12 kg/m2 W1 ([facility]) Body height [in_i] eCW1 ([facility]) Body weight 110 [lb_av] 110 [lb_av] eCW1 ([facility]) Body weight 49.216 kg 49.216 kg [facility] ([facility], ) Body mass index (BMI) [Ratio] 19.8 kg/m2 19.8 k g/m2 [facility] ([facility], ) Body weight 108.50 [lb_av] 108.50 [lb_av] MEDEN T ([facility], ) Body height 62 [in_i] 62 [in_i] [facility] ([facility], ) 5'2" Diastolic blood pressure 68 mm[Hg] 68 mm[Hg] [facility] ([facility], ) Systolic blood pressure 108 mm[Hg] 108 mm[Hg] M EDENT ([facility], ) Diastolic blood pressure 79 mm[Hg] 79 mm[Hg] eCW1 ([facility]) Systolic blood pressure 139 mm[Hg] 139 mm[Hg] e CW1 ([facility]) Body temperature 98.4 [degF] 98.4 [degF] eCW1 ( [facility]) Respiratory rate 20 /min 20 /min eCW1 ([facility]) Heart rate 72 /min 72 /min eCW1 ([facility]) Body mass index (BMI) [Ratio] 20.48 kg/m2 20.48 kg/m2 eCW1 ([facility]) Body height [in_us] eCW1 ([facility]) Body weight Measured 112 [lb_av] 112 [lb_av] eC W1 ([facility]) [place] body weight 110 [lb_av] 110 [lb_av] MED[facility] T ([facility], ) Body mass index (BMI) [Ratio] 21.0 kg/m2 21.0 k g/m2 [facility] Body weight 115.00 [lb_av] 115.00 [lb_av] MEDEN T ([facility], ) Body height 62 [in_i] 62 [in_i] [facility] ([facility], ) 5'2" Respiratory rate 14 /min 14 /min [facility] ( [facility] ) Heart rate 70 /min 70 /min [facility] ([facility] ) Diastolic blood pressure 70 mm[Hg] 70 mm[Hg] [facility] Systolic blood pressure 120 mm[Hg] 120 mm[Hg] M EDENT ([facility] ) Diastolic blood pressure 67 mm[Hg] 67 mm[Hg] eCW1 ([facility]) Systolic blood pressure 140 mm[Hg] 140 mm[Hg] e CW1 ([facility]) Body temperature 98.3 [degF] 98.3 [degF] eCW1 ( [facility]) Respiratory rate 20 /min 20 /min eCW1 ([facility]) Heart rate 93 /min 93 /min eCW1 ([facility]) Body mass index (BMI) [Ratio] 21.40 kg/m2 21.40 kg/m2 eCW1 ([facility]) Body height [in_us] eCW1 ([facility]) Body weight Measured 117 [lb_av] 117 [lb_av] eC W1 ([facility]) Body weight 52.164 kg 52.164 kg [facility] ([facility], ) Body mass index (BMI) [Ratio] 21.0 kg/m2 21.0 k g/m2 [facility] ([facility]) Body weight 115.00 [lb_av] 115.00 [lb_av] MEDEN T ([facility]) Body height 62 [in_i] 62 [in_i] [facility] ([facility]) 5'2" Body temperature 97.9 [degF] 97.9 [degF] [facility] ([facility]) Diastolic blood pressure 68 mm[Hg] 68 mm[Hg] eCW1 ([facility]) Systolic blood pressure 122 mm[Hg] 122 mm[Hg] e CW1 ([facility]) Body temperature 98 [degF] 98 [degF] eCW1 ([facility]) Respiratory rate 20 /min 20 /min eCW1 ([facility]) Heart rate 66 /min 66 /min eCW1 ([facility]) Body mass index (BMI) [Ratio] 21.03 kg/m2 21.03 kg/m2 eCW1 ([facility]) Body height [in_us] eCW1 ([facility]) Body weight Measured 115 [lb_av] 115 [lb_av] eC W1 ([facility]) Patient Treatment Plan of Care Planned Activity Planned Date Details Description Data Source (s) Bisacodyl 10 MG Rectal Suppository [Dulcolax] 07/01/2020 12:00:00 A M EST eCW1 ([facility]) Bisacodyl 10 MG Rectal Suppository [Dulcolax] 07/01/2020 12:00:00 A M EST eCW1 ([facility]) Bisacodyl 10 MG Rectal Suppository [Dulcolax] 07/01/2020 12:00:00 A M EST eCW1 ([facility]) Diclofenac Sodium 50 MG Delayed Release Oral Tablet 04/09/20 12:00:00 AM EDT eCW1 ([facility]) Diclofenac Sodium 50 MG Delayed Release Oral Tablet 04/09/20 12:00:00 AM EDT eCW1 ([facility]) Omeprazole 20 MG Delayed Release Oral Capsule 11/15/2019 12:00:00 A M EDT eCW1 ([facility]) Omeprazole 20 MG Delayed Release Oral Capsule 11/15/2019 12:00:00 A M EDT eCW1 ([facility]) Physical Therapy evaluate and treat 11/15/2019 12:00:00 AM EDT eCW1 ([facility]) Omeprazole 40 MG Delayed Release Oral Capsule 11/15/2019 12:00:00 A M EDT eCW1 ([facility]) Physical Therapy evaluate and treat 11/15/2019 12:00:00 AM EDT eCW1 ([facility]) Omeprazole 40 MG Delayed Release Oral Capsule 11/15/2019 12:00:00 A M EDT eCW1 ([facility]) Physical Therapy evaluate and treat 11/15/2019 12:00:00 AM EDT eCW1 ([facility]) Omeprazole 40 MG Delayed Release Oral Capsule 11/15/2019 12:00:00 A M EDT eCW1 ([facility]) Physical Therapy evaluate and treat 11/15/2019 12:00:00 AM EDT eCW1 ([facility]) Omeprazole 40 MG Delayed Release Oral Capsule 11/15/2019 12:00:00 A M EDT eCW1 ([facility]) Walker - 11/01/2019 12:00:00 AM EDT e CW1 ([facility]) Walker - 11/01/2019 12:00:00 AM EDT e CW1 ([facility]) Walker - 11/01/2019 12:00:00 AM EDT e CW1 ([facility]) Walker - 11/01/2019 12:00:00 AM EDT e CW1 ([facility]) Walker - 11/01/2019 12:00:00 AM EDT e CW1 ([facility]) Walker - 11/01/2019 12:00:00 AM EDT e CW1 ([facility]) Walker - 11/01/2019 12:00:00 AM EDT e CW1 ([facility]) Walker - 11/01/2019 12:00:00 AM EDT e CW1 ([facility]) Walker - 11/01/2019 12:00:00 AM EDT e CW1 ([facility]) Walker - 11/01/2019 12:00:00 AM EDT e CW1 ([facility]) Walker - 11/01/2019 12:00:00 AM EDT e CW1 ([facility]) Walker - 11/01/2019 12:00:00 AM EDT e CW1 ([facility]) Walker - 11/01/2019 12:00:00 AM EDT e CW1 ([facility]) 24 HR venlafaxine 150 MG Extended Release Oral Capsule 10/05/2019 12:00:00 AM EDT eCW1 ([facility]) 24 HR venlafaxine 150 MG Extended Release Oral Capsule 10/05/2019 12:00:00 AM EDT eCW1 ([facility]) 24 HR venlafaxine 150 MG Extended Release Oral Capsule 10/05/2019 12:00:00 AM EDT eCW1 ([facility]) 24 HR venlafaxine 150 MG Extended Release Oral Capsule 10/05/2019 12:00:00 AM EDT eCW1 ([facility]) 24 HR venlafaxine 150 MG Extended Release Oral Capsule 10/05/2019 12:00:00 AM EDT eCW1 ([facility]) 24 HR venlafaxine 150 MG Extended Release Oral Capsule 10/05/2019 12:00:00 AM EDT eCW1 ([facility]) 24 HR venlafaxine 150 MG Extended Release Oral Capsule 10/05/2019 12:00:00 AM EDT eCW1 ([facility]) 24 HR venlafaxine 150 MG Extended Release Oral Capsule 10/05/2019 12:00:00 AM EDT eCW1 ([facility]) 24 HR venlafaxine 150 MG Extended Release Oral Capsule 10/05/2019 12:00:00 AM EDT eCW1 ([facility]) 24 HR venlafaxine 150 MG Extended Release Oral Capsule 10/05/2019 12:00:00 AM EDT eCW1 ([facility]) 24 HR venlafaxine 150 MG Extended Release Oral Capsule 10/05/2019 12:00:00 AM EDT eCW1 ([facility]) 24 HR venlafaxine 150 MG Extended Release Oral Capsule 10/05/2019 12:00:00 AM EDT eCW1 ([facility]) 24 HR venlafaxine 150 MG Extended Release Oral Capsule 10/05/2019 12:00:00 AM EDT eCW1 ([facility]) Fenofibrate 160 MG Oral Tablet 06/22/2019 12:00:00 AM EST eCW1 ([facility]) Fenofibrate 160 MG Oral Tablet 06/22/2019 12:00:00 AM EST eCW1 ([facility]) Fenofibrate 160 MG Oral Tablet 06/22/2019 12:00:00 AM EST eCW1 ([facility])
[2020-07-10] MEDS ORDERED: DONE10TA90 PO (22:30)
[2020-07-10] MEDS ORDERED: BACT800T5 PO (22:30)
[2020-07-10] MEDS ORDERED: MIRA1POW3 PO (22:30)
[2020-07-10] MEDS ORDERED: COLA100C5 PO (22:30)
[2020-07-10] MEDS ORDERED: TRAM50TA2 PO (22:30)
[2020-07-10] MEDS ORDERED: PATIENT COMMENT (22:30)
[2020-07-10] MEDS ORDERED: ONDA4TAB6 PO (22:30)
[2020-07-10] MEDS ORDERED: ONDANSETRON 4MG/2ML VIAL IV PRN (23:00)
[2020-07-10] MEDS ORDERED: MORPHINE 2 MG/ML 1ML VIAL (J2270) IV PRN (23:00)
[2020-07-10] MEDS ORDERED: PILL CUTTER 1 EACH XX PRN (23:15)
[2020-07-10 23:17] LABS: RSV AMPLIFICATION NEGATIVE (NEGATIVE)
--- NOTE | 2020-07-10 23:29 | HPEPDOC ---
[facility] Medical History & Physical History and Physical CHIEF COMPLAINT: HISTORY OF PRESENT ILLNESS: PAST MEDICAL HISTORY: 1. . 2. . 3. . PAST SURGICAL HISTORY: 1. . 2. . 3. . SOCIAL HISTORY: Marital status: . Resides in: Children: Employment: Tobacco use: ETOH: Illicit drug use: Tattoos done unprofessionally: . IV drug use: Other relevant social factors: FAMILY HISTORY: Father: Mother: Siblings: Children: Hereditary Diseases: Unexpected deaths due to medical reasons: ALLERGIES: Please see below. REVIEW OF SYSTEMS: CONSTITUTIONAL: . HEENT: . CARDIOVASCULAR: . RESPIRATORY: . GASTROINTESTINAL: . GENITOURINARY: . SKIN: . MUSCULOSKELETAL: . NEUROLOGICAL: . PSYCHIATRIC: . ENDOCRINE: . HEMATOLOGIC/LYMPHATIC: . HOME MEDICATIONS: Please see below. PHYSICAL EXAMINATION: VITAL SIGNS: Temperature , pulse , respiratory rate , blood pressure , pulse oximetry % on room air. GENERAL APPEARANCE: . HEENT: . CARDIOVASCULAR: . LUNGS: . ABDOMEN: . MUSCULOSKELETAL: . EXTREMITIES: . NEUROLOGICAL: . PSYCHIATRIC: . LABORATORY DATA: See below. IMAGING: MICROBIOLOGY: Please see below. ASSESSMENT: . . PLAN: 1. . Vital Signs Vital Signs Date Time Temp Pulse Resp B/P (MAP) Pulse Ox O2 Delivery O2 Flow Rate FiO2 07/10/20 22:15 16 07/10/20 19:30 69 137/58 (84) 97 07/10/20 17:09 97.5 Room Air Laboratory Data Labs 24H Laboratory Tests 2 07/10/20 17:50: Immature Granulocyte % (Auto) 0.4, Neutrophils (%) (Auto) 60.7, Lymphocytes (%) (Auto) 23.5L, Monocytes (%) (Auto) 14.3H, Eosinophils (%) (Auto) 0.4, Basophils (%) (Auto) 0.7, Neutrophils # (Auto) 5.1, Lymphocytes # (Auto) 2.0, Monocytes # (Auto) 1.2H, Eosinophils # (Auto) 0.0, Basophils # (Auto) 0.1, Nucleated Red Blood Cells % (auto) 0.0, Anion Gap 8, Glomerular Filtration Rate > 60.0, Calcium Level 10.3H, Total Bilirubin 0.2, Direct Bilirubin 0.1, Aspartate Amino Transf (AST/SGOT) 15, Alanine Aminotransferase (ALT/SGPT) 22, Alkaline Phosphatase 71, Total Protein 7.0, Albumin 3.3, Albumin/Globulin Ratio 0.9L, Lipase 102 07/10/20 17:56: Lactic Acid Level 1.0 07/10/20 18:14: Urine Color YELLOW, Urine Appearance CLEAR, Urine pH 5.0, Urine Specific [place] 1.032, Urine Protein 1+H, Urine Glucose (UA) 1+H, Urine Ketones 1+H, Urine Blood NEGATIVE, Urine Nitrite NEGATIVE, Urine Bilirubin 2+H, Urine Urobilinogen 2.0H, Urine Leukocyte Esterase NEGATIVE, Urine WBC (Auto) 1, Urine RBC (Auto) 0, Urine Hyaline Casts (Auto) 0, Urine Bacteria (Auto) NEGATIVE, Urine Squamous Epithelial Cells 1, Urine Mucus (Auto) SMALL, Urine Sperm (Auto) 07/10/20 22:19: Coronavirus (COVID-19)(PCR) NEGATIVE, Influenza Type A (RT-PCR) NEGATIVE, Influenza Type B (RT-PCR) NEGATIVE, Respiratory Syncytial Virus (PCR) NEGATIVE CBC/BMP Laboratory Tests 07/10/20 17:50 Microbiology Microbiology 07/10/20 Blood Culture, Received Pending 07/10/20 Blood Culture, Received Pending Home Medications Scheduled Aspirin (Aspirin EC) 81 Mg Tablet.dr, 81 MG PO DAILY Atorvastatin Calcium (Atorvastatin Calcium) 40 Mg Tablet, 40 MG PO DAILY Cyanocobalamin (Vitamin B-12) (Vitamin B-12) 1,000 Mcg Tab.subl, 1,000 MCG SL DAILY Docusate Sodium (Colace) 100 Mg Capsule, 100 MG PO BID Donepezil HCl (Donepezil HCl) 10 Mg Tablet, 10 MG PO DAILY Fenofibrate (Fenofibrate) 160 Mg Tablet, 160 MG PO DAILY Omeprazole (Omeprazole) 20 Mg Capsule.dr, 20 MG PO DAILY Primidone (Primidone) 50 Mg Tablet, 25 MG PO BID Propranolol HCl (Propranolol HCl) 40 Mg Tablet, 40 MG PO TID Sulfamethoxazole/Trimethoprim (Bactrim Ds Tablet) 1 Each Tablet, 1 TAB PO BID STARTED 07/07/20 Venlafaxine HCl (Venlafaxine HCl ER) 150 Mg Cap.er.24h, 150 MG PO BID Scheduled PRN Ondansetron (Ondansetron Odt) 4 Mg Tab.rapdis, 4 MG PO Q6H PRN for NAUSEA OR VOMITING Polyethylene Glycol 3350 (Miralax) 17 Gm Powd.pack, 17 GM PO DAILY PRN for CONSTIPATION Tramadol HCl (Tramadol HCl) 50 Mg Tablet, 50 MG PO Q6H PRN for PAIN Miscellaneous Medications [Patient Comment] MED REC COMPLETED VIA EXTERNAL MED HISTORY AND PREVIOUS DISCHARGE PAPERWORK Allergies Coded Allergies: morphine (Verified Adverse Reaction, Mild, restlessness, 10/02/19) CARL MATTSON MD Jul 10, 2020 23:29
--- NOTE | 2020-07-10 23:30 | IPNPDOC ---
Text Note Date of Service The patient was seen on 07/10/20. NOTE TIME OF SERVICE 1156PM is a 74 yr old F w a hx of CVA/TIA, depression, DLP, GERD and insomnia who was sent to the ER by her PCP bc of c/o intermittent abdominal pain for a few weeks that was associated with poor appetite; her last BM was 2 days ago and she last passed gas this morning. She will be admitted for management of intussuception. Despite the Xray findings of PNA she doesn't have clinical features of the latter. Plan: NPO & f/u w rest per 's H&P VS,Mitchel, I+O VS, Mitchel, I+O Laboratory Tests 07/10/20 17:50 Vital Signs Date Time Temp Pulse Resp B/P (MAP) Pulse Ox O2 Delivery O2 Flow Rate FiO2 07/10/20 22:15 16 07/10/20 19:30 69 137/58 (84) 97 07/10/20 17:09 97.5 Room Air CARL MATTSON MD Jul 10, 2020 23:30
[2020-07-11] MEDS: NS 1,000 ML IV SCH ×3 (01:00→16:12)
[2020-07-11 01:52] VITALS: BP 134/76
[2020-07-11] MEDS: RAMELTEON 8 MG TAB (ROZEREM) PO PRN (02:35)
[2020-07-11] MEDS: PROPRANOLOL 20 MG TAB PO SCH ×4 (02:35→21:50)
[2020-07-11] MEDS: VENLAFAXINE **XR** 75MG CAPSULE PO SCH ×3 (02:35→21:49)
[2020-07-11] MEDS: PRIMIDONE 25MG PER 1/2 TABLET PO SCH ×3 (02:35→21:49)
--- NOTE | 2020-07-11 04:03 | HPEPDOC ---
[facility] Medical History & Physical Date of Admission Jul 10, 2020 Date of Service: Jul 10, 2020 Attending Physician: CARL MATTSON MD History and Physical CHIEF COMPLAINT: Abdominal pain, nausea, constipation HISTORY OF PRESENT ILLNESS: Patient is a 74-year-old female with a past medical history significant for TIA, valley fever who presented to [facility] emergency department with complaint of lower abdominal pain that had worsened over the past few days. Patient stated she developed a crampy pain in the lower abdomen which has persisted and has recently gotten worse. She states that she has developed some nausea as well as constipation. She's been in and out of the emergency department is her third visit. Patient states that her lower abdomen is painful, however, denies any other symptoms. In the emergency department the patient was vitally stable. . She received a CT of the abdomen and pelvis which demonstrated jejunojejunal intussusception involving the proximal jejunum with no obstruction. Initially was progressive atelectasis consolidation in the lateral segment of the right middle lobe and hepatic steatosis. Due to the findings of intussusception. General surgery was contacted to the emergency department. Stated they would see the patient the morning. Hospitalist service was consultative the patient was admitted for further evaluation management PAST MEDICAL HISTORY: 1. Choledocholithiasis. 2. TIA. 3., History of valley fever. PAST SURGICAL HISTORY: 1. Common bile duct stent placement. 2. Valley fever. 3. Bowel resection surgery secondary to diverticulitis. 4. Right shoulder surgery SOCIAL HISTORY: Patient recently moved to [place] from [place]. She is currently living with her son and [id number]. She is a nonsmoker. She denies any alcohol use. Denies any IV or illicit drug use ever. FAMILY HISTORY: Patient states her father was healthy and of natural causes. Her mother had a history of heart disease, diabetes ALLERGIES: Please see below. REVIEW OF SYSTEMS: CONSTITUTIONAL: Denies fevers, chills. Denies unintentional weight loss or weight gain. Denies night sweats HEENT: Denies dysphagia. Denies odynophagia. CARDIOVASCULAR: Denies Chest pain, palpitations or feelings of the heart racing. RESPIRATORY: Denies Shortness of breath. Denies cough. Denies wheezing. GASTROINTESTINAL: Denies abdominal pain and lower left and right quadrant. Mrs. mayo. Admits to nausea. Denies any vomiting GENITOURINARY:. Denies dysuria, increased frequency. Denies urgency. SKIN: Denies rashes or lesions MUSCULOSKELETAL: Denies Muscle pain or weakness. NEUROLOGICAL:. Denies any changes in her gait or speech. PSYCHIATRIC: Denies depression or anxiety ENDOCRINE:. Denies heat intolerance or cold intolerance. HEMATOLOGIC/LYMPHATIC: Denies any history of easy bruising or bleeding. Denies history of DVT or pulmonary embolism. HOME MEDICATIONS: Please see below. PHYSICAL EXAMINATION: VITAL SIGNS: Temperature 97.9, pulse, 92, respiratory rate 17, blood pressure 134/76, pulse oximetry, 96 % on room air. GENERAL APPEARANCE: Awake, alert, oriented. She does not appear in acute distress. She is conversant. She is pleasant. HEENT: Atraumatic or normocephalic. Eyes nonicteric. Trachea is midline mucous members are pink and moist. CARDIOVASCULAR: Normal S1, S2 regular rate rhythm. No clicks rubs or murmurs. LUNGS: Clear Vesicular breath sounds bilaterally. Good respiratory effort. No wheezes rhonchi or rales. ABDOMEN:. Soft nondistended. Mild tenderness in the lower left and right quadrant. No rebound tenderness or guarding. Hypoactive bowel sounds.. EXTREMITIES: No Edema. Full equal pulses bilateral upper and lower extremities. NEUROLOGICAL: No focal Neurological deficits. PSYCHIATRIC: Mood and affect appear appropriate LABORATORY DATA: See below. IMAGING: PROCEDURE INFORMATION: Exam: CT Chest With Contrast; Diagnostic Exam date and time: 07/10/2020 7:37 PM Age: 74 years old Clinical indication: Abnormal findings; Abnormal radiologic exam of lung or chest; Additional info: Persistent rml infiltrate TECHNIQUE: Imaging protocol: Diagnostic computed tomography of the chest with intravenous contrast. Radiation optimization: All CT scans at this facility use at least one of these dose optimization techniques: automated exposure control; mA and/or kV adjustment per patient size (includes targeted exams where dose is matched to clinical indication); or iterative reconstruction. Contrast material: ISOVUE 370; Contrast volume: 100 ml; Contrast route: INTRAVENOUS (IV); COMPARISON: CT Chest with contrast 07/04/2020 4:01 PM FINDINGS: Lungs: There is a focal narrowing (appears to be extrinsic) noted of the bronchus intermedius located immediately proximal to its bifurcation into the right middle lobe and right lower lobe bronchus. There is progressive atelectasis/consolidation in the lateral segment segment of the right middle lobe. Subsegmental atelectasis present in the superior segment of the right lower lobe and in the right lower lobe. Calcified granuloma right lower lobe. Hyperinflation noted of the right lower lobe. Bronchiectasis noted in the right lower lobe and the right middle lobe. Pleural spaces: Unremarkable. No pneumothorax. No pleural effusion. Heart: Unremarkable. No cardiomegaly. No pericardial effusion. Aorta: Unremarkable. No aortic aneurysm. Lymph nodes: Unremarkable. No enlarged lymph nodes. Bones/joints: Unremarkable. No acute fracture. Soft tissues: Unremarkable. IMPRESSION: Progressive atelectasis/consolidation in the right middle with evidence of compression/stenosis of the distal bronchus intermedius. Direct visualization recommended. There is also Subsegmental atelectasis with hyperinflation in the right lower lobe Electronically signed by: Payton Carrillo On 07/10/2020 20:39:21 PM ADDENDUM REPORT 1 There is a diverticulum arising from the 2nd portion of the duodenum. Electronically signed by: Payton Carrillo On 07/10/2020 20:45:43 PM DD: PAYTON CARRILLO MD 07/10/201936 DT: REJI 07/10/202044 DS: LUZMARIA 07/10/202044 PROCEDURE INFORMATION: Exam: CT Abdomen And Pelvis With Contrast Exam date and time: 07/10/2020 7:37 PM Age: 74 years old Clinical indication: Abdominal pain; Generalized; Additional info: Abdominal pain, anorexia, weight loss TECHNIQUE: Imaging protocol: Computed tomography of the abdomen and pelvis with intravenous contrast. Radiation optimization: All CT scans at this facility use at least one of these dose optimization techniques: automated exposure control; mA and/or kV adjustment per patient size (includes targeted exams where dose is matched to clinical indication); or iterative reconstruction. Contrast material: ISOVUE 370; Contrast volume: 100 ml; Contrast route: INTRAVENOUS (IV); COMPARISON: CT ABD/PEL W/IV CONTRAST ONLY 06/29/2020 8:24 PM FINDINGS: Lungs: There is complete atelectasis and consolidation in the lateral segment of the right middle lobe. Mild bronchiectasis noted in the atelectatic segment. Subsegmental atelectasis present in the right lower lobe. Calcified granuloma right lower lobe. Scattered small foci centrilobular type emphysema. Liver: The liver is low in density. 5 mm low-density lesion medial segment left lobe of the liver. Gallbladder and bile ducts: A structure that may represent a cystic duct remnant is noted containing a small focus of air. Pancreas: Mild atrophy. Pancreatic duct measures 3.2 mm in the head of the pancreas.. Spleen: 5 mm low-density lesion present within the spleen. Adrenal glands: Normal. No mass. Kidneys and ureters: 1.8 cm simple cyst lower pole right kidney. No hydronephrosis in either kidney. 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 Suture line noted at the level of the approximate rectosigmoid junction. Appendix: No evidence of appendicitis. Intraperitoneal space: Unremarkable. No free air. No significant fluid collection. Vasculature: Unremarkable. No abdominal aortic aneurysm. Lymph nodes: Unremarkable. No enlarged lymph nodes. Urinary bladder: Unremarkable as visualized. Reproductive: Unremarkable as visualized. Bones/joints: There is an underlying levoscoliosis of the thoracolumbar spine with moderately advanced degenerative changes noted at the level of the scoliosis. Advanced facet arthropathy noted in the lower lumbar spine and lumbosacral junction. Soft tissues: Unremarkable. IMPRESSION: 1. Jejuno jejunal intussusception involving proximal jejunum. No obstruction. 2. Progressive atelectasis and consolidation in the lateral segment of the right middle lobe. 3. Hepatic steatosis. 4. 5 mm low-density lesion in the left lobe of the liver. 5 mm low-density splenic lesion. In a low risk individual, these are likely benign. No follow-up recommended based on these findings. 5. Air and fluid containing structure present in the gallbladder fossa may represent a cystic duct remnant. No change from previous. 6. Simple cyst right kidney. No follow-up recommended. COMMENTS: Consistent with the [employer]'s Incidental Findings Committee white paper (J Am Gwendolyn Radiol 2018): Any incidental renal lesion less than 1 cm or classified as too small to characterize, or any incidental cystic renal lesion characterized as simple-appearing, is likely benign. No follow-up imaging is recommended for these lesions per consensus recommendations based on imaging criteria. Electronically signed by: Payton Carrillo On 07/10/2020 20:27:41 PM MICROBIOLOGY: Please see below. ASSESSMENT: Patient is a 74-year-old female the past medical history significant for diverticulitis with bowel resection, TIA history and history of valley fever who presented to [facility] emergency with complaint of abdominal pain and nausea and felt to have intussusception. PLAN: 1. Intussusception -CT imaging demonstrated jejunojejunal intussusception involving the proximal jejunum without obstruction. General surgery was contacted through the ER stated they will see the patient in the morning -We'll make patient nothing by mouth except medications -The cause her intussusception is unclear. She has had her colonoscopy approximate 6 months ago which she states was normal. She has no other signif icant risk factors for cancer, although she does have findings on her CT scan a demonstrate a right middle lobe consolidative region. However, she has a history of diverticula which could lead to intussusception. -Continue anti-emetics and IV fluid. 2. Abnormal lung CT findings -CT abdomen and pelvis showing urinary in the right middle lobe of progressive atelectasis consolidation. This is of questionable etiology. Patient does state that she was diagnosed with valley fever approximately 16 months ago. This could represent chronic scarring. Should have follow-up for this. She is a nonsmoker. She is low risk for lung cancer. 3. Dementia -Patient's currently on prednisone and Donepezil -Functional status is very good 4. DVT prophylaxis -Mechanical Vital Signs Vital Signs Date Time Temp Pulse Resp B/P (MAP) Pulse Ox O2 Delivery O2 Flow Rate FiO2 07/11/20 02:35 92 134/76 07/11/20 01:52 97.9 17 96 Room Air Laboratory Data Labs 24H Laboratory Tests 2 07/10/20 17:50: Immature Granulocyte % (Auto) 0.4, Neutrophils (%) (Auto) 60.7, Lymphocytes (%) (Auto) 23.5L, Monocytes (%) (Auto) 14.3H, Eosinophils (%) (Auto) 0.4, Basophils (%) (Auto) 0.7, Neutrophils # (Auto) 5.1, Lymphocytes # (Auto) 2.0, Monocytes # (Auto) 1.2H, Eosinophils # (Auto) 0.0, Basophils # (Auto) 0.1, Nucleated Red Blood Cells % (auto) 0.0, Anion Gap 8, Glomerular Filtration Rate > 60.0, Calcium Level 10.3H, Total Bilirubin 0.2, Direct Bilirubin 0.1, Aspartate Amino Transf (AST/SGOT) 15, Alanine Aminotransferase (ALT/SGPT) 22, Alkaline Phosphatase 71, Total Protein 7.0, Albumin 3.3, Albumin/Globulin Ratio 0.9L, Lipase 102 07/10/20 17:56: Lactic Acid Level 1.0 07/10/20 18:14: Urine Color YELLOW, Urine Appearance CLEAR, Urine pH 5.0, Urine Specific [place] 1.032, Urine Protein 1+H, Urine Glucose (UA) 1+H, Urine Ketones 1+H, Urine Blood NEGATIVE, Urine Nitrite NEGATIVE, Urine Bilirubin 2+H, Urine Urobilinogen 2.0H, Urine Leukocyte Esterase NEGATIVE, Urine WBC (Auto) 1, Urine RBC (Auto) 0, Urine Hyaline Casts (Auto) 0, Urine Bacteria (Auto) NEGATIVE, Urine Squamous Epithelial Cells 1, Urine Mucus (Auto) SMALL, Urine Sperm (Auto) 07/10/20 22:19: Coronavirus (COVID-19)(PCR) NEGATIVE, Influenza Type A (RT-PCR) NEGATIVE, Inf luenza Type B (RT-PCR) NEGATIVE, Respiratory Syncytial Virus (PCR) NEGATIVE CBC/BMP Laboratory Tests 07/10/20 17:50 Microbiology Microbiology 07/10/20 Blood Culture, Received Pending 07/10/20 Blood Culture, Received Pending Home Medications Scheduled Aspirin (Aspirin EC) 81 Mg Tablet.dr, 81 MG PO DAILY Atorvastatin Calcium (Atorvastatin Calcium) 40 Mg Tablet, 40 MG PO DAILY Cyanocobalamin (Vitamin B-12) (Vitamin B-12) 1,000 Mcg Tab.subl, 1,000 MCG SL DAILY Docusate Sodium (Colace) 100 Mg Capsule, 100 MG PO BID Donepezil HCl (Donepezil HCl) 10 Mg Tablet, 10 MG PO DAILY Fenofibrate (Fenofibrate) 160 Mg Tablet, 160 MG PO DAILY Omeprazole (Omeprazole) 20 Mg Capsule.dr, 20 MG PO DAILY Primidone (Primidone) 50 Mg Tablet, 25 MG PO BID Propranolol HCl (Propranolol HCl) 40 Mg Tablet, 40 MG PO TID Sulfamethoxazole/Trimethoprim (Bactrim Ds Tablet) 1 Each Tablet, 1 TAB PO BID STARTED 07/07/20 Venlafaxine HCl (Venlafaxine HCl ER) 150 Mg Cap.er.24h, 150 MG PO BID Scheduled PRN Ondansetron (Ondansetron Odt) 4 Mg Tab.rapdis, 4 MG PO Q6H PRN for NAUSEA OR VOMITING Polyethylene Glycol 3350 (Miralax) 17 Gm Powd.pack, 17 GM PO DAILY PRN for CONSTIPATION Tramadol HCl (Tramadol HCl) 50 Mg Tablet, 50 MG PO Q6H PRN for PAIN Miscellaneous Medications [Patient Comment] MED REC COMPLETED VIA EXTERNAL MED HISTORY AND PREVIOUS DISCHARGE PAPERWORK Allergies Coded Allergies: morphine (Verified Adverse Reaction, Mild, restlessness, 10/02/19) A-FIB/CHADSVASC A-FIB History Current/History of A-Fib/PAF?: No GME ATTESTATION GME ATTESTATION My faculty preceptor for this patient encounter was physically present during the encounter and was fully available. All aspects of the patient interview, examination, medical decision making process, and medical care plan development were reviewed and approved by the faculty preceptor. The faculty preceptor is aware and concurs with the plan as stated in the body of this note and will attest to such by his/her cosignature. ATTENDING NOTE TIME OF SERVICE 1156PM is a 74 yr old F w a hx of CVA/TIA, depression, DLP, GERD and insomnia who was sent to the ER by her PCP bc of c/o intermittent abdominal pain for a few weeks that was associated with poor appetite; her last BM was 2 days ago and she last passed gas this morning. She will be admitted for management of intussuception. Despite the Xray findings of PNA she doesn't have clinical features of the latter. Plan: NPO & f/u w rest per 's H&P YANET CASTILLO DO Jul 11, 2020 04:03 CARL MATTSON MD Jul 11, 2020 04:51
[2020-07-11 05:50] LABS: HEMATOCRIT 39.4 % (36.0-47.0); HEMOGLOBIN 12.8 g/dl (12.0-15.5); MEAN CORPUSCULAR HEMOGLOBIN 32.1 pg (27.0-33.0); MEAN CORPUSCULAR HGB CONC 32.5 g/dl (32.0-36.5); MEAN CORPUSCULAR VOLUME 98.7 fl (80.0-96.0); PLATELET COUNT, AUTOMATED 480 10^3/uL (150-450); RED BLOOD COUNT 3.99 10^6/uL (4.00-5.40); WHITE BLOOD COUNT 13.8 10^3/uL (4.0-10.0)
[2020-07-11 06:00] VITALS: BP 151/59
[2020-07-11 06:23] LABS: ALBUMIN 2.9 GM/DL (3.2-5.2); ALT/SGPT 19 U/L (12-78); BILIRUBIN,TOTAL 0.3 MG/DL (0.2-1.0); BLOOD UREA NITROGEN 17 MG/DL (7-18); CALCIUM LEVEL 9.3 MG/DL (8.8-10.2); CARBON DIOXIDE LEVEL 24 MEQ/L (21-32); CHLORIDE LEVEL 97 MEQ/L (98-107); CREATININE FOR GFR 0.55 MG/DL (0.55-1.30); GLOMERULAR FILTRATION RATE > 60.0 (>39); GLUCOSE, FASTING 61 MG/DL (70-100); MAGNESIUM LEVEL 1.7 MG/DL (1.8-2.4); POTASSIUM SERUM 3.5 MEQ/L (3.5-5.1); SODIUM LEVEL 134 MEQ/L (136-145); TOTAL PROTEIN 6.7 GM/DL (6.4-8.2)
[2020-07-11] MEDS ORDERED: PNEUMOCOCCAL VACCINE 0.5ML SYRINGE (PNEUMOVAX 23) IM ONE (09:00)
[2020-07-11] MEDS: DONEPEZIL 5 MG TAB PO SCH (09:00)
[2020-07-11] MEDS ORDERED: E-Z-PAQUE 96% w/w SUSP 176GM BTL As Ordered ONE (09:52)
--- NOTE | 2020-07-11 12:33 | CR ---
CONSULTATION DATE: 07/11/2020 CHIEF COMPLAINT: Abdominal pain. HISTORY OF PRESENT ILLNESS: Patient is an 74-year-old female, presented to the hospital with complaints of lower abdominal pain that has been getting worse over the past couple of days. She has had pains like this for the past few weeks as well. She has been in and out of the hospital a few times. This is her third visit recently for similar symptoms. Previously, she has been diagnosed with constipation; however, this time a CT showed jejunojejunal intussusception. Because of that, she was kept overnight. Her abdominal pain was minimal. Labs were nonspecific, so there was no indication for any type of emergency at the time. This morning, she feels slightly better than she did yesterday. Her abdomen is soft. No real nausea or vomiting. No fevers or chills. No complaints other than she is sick of having the same problems that will not go away. She said she barely eats anything because she always has the pain. Her bowel movements are small and pebble-like. She only has a little bit every couple of days. She has had a couple of prior abdominal surgeries for diverticulitis and perforation many years ago. Nothing recently. She is on bowel regimen at home, but still is only having bowel movements a couple of times a week. PAST MEDICAL HISTORY: 1. Choledocholithiasis. 2. Transient ischemic attack (TIA). 3. History of Valley Fever. PAST SURGICAL HISTORY: 1. Common bowel duct stent placement and Valley Fever. 2. Bowel resection for diverticulitis. 3. Right shoulder surgery. SOCIAL HISTORY: Denies drug, alcohol, tobacco abuse. FAMILY HISTORY: Noncontributory. ALLERGIES: MORPHINE. MEDICATIONS: Please see medical reconciliation. REVIEW OF SYSTEMS: Per positives and negatives as stated in the history of present illness (HPI). PHYSICAL EXAMINATION: Alert and oriented times three. No acute distress. VITAL SIGNS: Temperature 98.3, pulse 70, respirations 16, blood pressure 151/59, pulse oximetry 99% on room air. HEENT: Pupils are equal, round and reactive to light and accommodation. HEART: S1, S2. Regular rate and rhythm. LUNGES: Clear to auscultation bilaterally. ABDOMEN: Soft, nontender, non-distended. No ventral hernias. There is midline abdominal scarring from prior surgery. EXTREMITIES: No clubbing, cyanosis or edema. LABORATORY DATA: White count 8.4, up to 13.8 this morning, hemoglobin 12.8, platelets 480. Potassium 3.5, creatinine 0.55, magnesium 1.7. IMAGING DATA: CT abdomen and pelvis shows jejunojejunal intussusception involving proximal jejunum. No obstruction. Progressive atelectasis and consolidation in the lateral segment of the right middle lobe. Hepatic steatosis. A 5 mm low density lesion in the left lobe of the liver. A 5 mm splenic lesion. Air and fluid containing structure present in the gallbladder fossa, may represent a cystic duct remnant. No change from previous exam. ASSESSMENT AND PLAN: The patient is a 74-year-old female with persistent abdominal pains in the lower abdomen. She also has jejunojejunal intussusception on CT. This is most likely an incidental finding, though she has no symptoms of that. Her lower abdominal crampy pains are most likely secondary to constipation. Recommendation is to check a small bowel fall through just to confirm there is no abnormal pathology associated with this intussusception. If that is normal, she can be placed on a regular diet, as well as a bowel regimen. Once she has a couple of bowel movements and is feeling well, she can be discharged home to follow up with her primary.
[2020-07-11 14:00] VITALS: BP 148/60
--- NOTE | 2020-07-11 17:22 | REP ---
INDICATION: abnormal CT. COMPARISON: None TECHNIQUE: This procedure was performed by Kateryna Zaman [facility], under the direct supervision of Dr. Rdz. Images were reviewed with Dr. Rdz prior to dictation. Liquid barium was administered and the barium column was followed through the small bowel to the level of the terminal ileum. FINDINGS: The mixing pan tender film shows no organomegaly or pathological masses. The intestinal gas pattern is unremarkable. Small bowel transit time is approximately 20 minutes. During fluoroscopy gentle palpation shows all loops are freely movable and pliable. There is no fixed angulated loops. The small bowel mucosal pattern is normal in course and caliber. There is no transition to suggest a partial small bowel obstruction. Spot filming of the terminal ileum shows it to be unremarkable. The appendix is visualized. IMPRESSION: 1. Small bowel transit time of approximately 20 minutes. 0.5 minutes of fluoroscopy time was utilized for this procedure. Some fluoroscopic images are performed with last image hold technology. These images require no additional radiation. <Electronically signed by Kateryna Zaman > 07/11/20 [id number] <Electronically signed by Akbar Rdz > 07/11/20 [id number]
[2020-07-11] MEDS ORDERED: MIRALAX *UNIT DOSE* 17GM PACKET PO PRN (19:45)
--- NOTE | 2020-07-11 19:51 | IPNPDOC ---
Subjective Date Seen The patient was seen on 07/11/20. Subjective Chief Complaint/HPI Mrs. Fisher is a 74 year old female with TIA, choledocholithiasis, and history of valley fever who presents with persistent lower abdominal pain. This morning, she still has abdominal pain with nausea and poor appetite. Denies chest pain or dyspnea Objective Physical Examination General Exam: Positive: Alert, Cooperative Eye Exam: Positive: EOMI; Negative: Sclera icteric Neck Exam: Positive: Supple Chest Exam: Positive: Clear to auscultation; Negative: Rales, Rhonchi, Wheezing Heart Exam: Positive: Rate Normal, Regular Rhythm Abdomen Exam: Positive: BS Hypoactive, Tenderness Extremity Exam: Negative: Edema Neuro Exam: Positive: Normal Speech Psych Exam: Positive: Anxiety Assessment /Plan Assessment Mrs. Fisher is a 74 year old female with TIA, choledocholithiasis, and history of valley fever who presents with persistent lower abdominal pain. She was admitted for jejuno-jejunal intussusception. General surgery was consulted. Recommended small bowel follow through. If normal, recommend regular diet and bowel regimen. Plan/VTE VTE Prophylaxis Ordered?: Yes Plan 1. Intussusception -Jejunojejunal intussusception -General surgery consulted -Recommended small bowel follow through -If negative test, can start on diet and bowel regimen 2. Atelectasis -Demonstrated on CT chest. She has history of Valley Fever. Concern for chronic scarring -No clinical signs or symptoms of pneumonia 3. Dementia -Donepezil 4. DVT ppx -TEDs Disposition: If tolerates diet and has BM, possible discharge tomorrow VS, I&O, 24H, Fishbone Vital Signs/I&O Vital Signs Date Time Temp Pulse Resp B/P (MAP) Pulse Ox O2 Delivery O2 Flow Rate FiO2 07/11/20 16:13 66 148/60 07/11/20 14:00 97.5 16 99 Room Air I&O- Last 24 Hours up to 6 AM 07/11/20 06:00 Intake Total 540 ml Output Total 250 ml Balance 290 ml Laboratory Data 24H LABS Laboratory Tests 2 07/10/20 22:19: Coronavirus (COVID-19)(PCR) NEGATIVE, Influenza Type A (RT-PCR) NEGATIVE, Influenza Type B (RT-PCR) NEGATIVE, Respiratory Syncytial Virus (PCR) NEGATIVE 07/11/20 05:13: Nucleated Red Blood Cells % (auto) 0.0, Anion Gap 13, Glomerular Filtration Rate > 60.0, Calcium Level 9.3, Magnesium Level 1.7L, Total Bilirubin 0.3, Aspartate Amino Transf (AST/SGOT) 12, Alanine Aminotransferase (ALT/SGPT) 19, Alkaline Phosphatase 61, Total Protein 6.7, Albumin 2.9L, Albumin/Globulin Ratio 0.8L CBC/BMP Laboratory Tests 07/11/20 05:13 Microbiology Microbiology 07/10/20 Blood Culture - Preliminary, Resulted No growth after 24 hours . All specim... 07/10/20 Blood Culture - Preliminary, Resulted No growth after 24 hours . All specim... PAO WILLS DO Jul 11, 2020 19:51
[2020-07-11] MEDS: DOCUSATE SODIUM 100MG CAPSULE PO SCH (21:49)
[2020-07-11 22:00] VITALS: BP 145/61
[2020-07-12] MEDS: NS 1,000 ML IV SCH (01:12)
[2020-07-12 06:00] VITALS: BP 162/71
[2020-07-12 07:17] LABS: ALBUMIN 2.8 GM/DL (3.2-5.2); ALT/SGPT 20 U/L (12-78); BILIRUBIN,TOTAL 0.3 MG/DL (0.2-1.0); BLOOD UREA NITROGEN 5 MG/DL (7-18); CALCIUM LEVEL 8.7 MG/DL (8.8-10.2); CARBON DIOXIDE LEVEL 27 MEQ/L (21-32); CHLORIDE LEVEL 102 MEQ/L (98-107); CREATININE FOR GFR 0.47 MG/DL (0.55-1.30); GLOMERULAR FILTRATION RATE > 60.0 (>39); GLUCOSE, FASTING 88 MG/DL (70-100); MAGNESIUM LEVEL 1.7 MG/DL (1.8-2.4); POTASSIUM SERUM 3.7 MEQ/L (3.5-5.1); SODIUM LEVEL 140 MEQ/L (136-145); TOTAL PROTEIN 6.7 GM/DL (6.4-8.2)
[2020-07-12 09:38] LABS: HEMOGLOBIN 12.2 g/dl (12.0-15.5); MEAN CORPUSCULAR HEMOGLOBIN 32.5 pg (27.0-33.0); MEAN CORPUSCULAR HGB CONC 33.9 g/dl (32.0-36.5); PLATELET COUNT, AUTOMATED 445 10^3/uL (150-450); RED BLOOD COUNT 3.75 10^6/uL (4.00-5.40); WHITE BLOOD COUNT 8.5 10^3/uL (4.0-10.0)
[2020-07-12] MEDS: PRIMIDONE 25MG PER 1/2 TABLET PO SCH ×2 (09:53→20:48)
[2020-07-12] MEDS: DONEPEZIL 5 MG TAB PO SCH (09:53)
[2020-07-12] MEDS: VENLAFAXINE **XR** 75MG CAPSULE PO SCH ×2 (09:53→20:47)
[2020-07-12] MEDS: DOCUSATE SODIUM 100MG CAPSULE PO SCH ×2 (09:53→20:32)
[2020-07-12] MEDS: PROPRANOLOL 20 MG TAB PO SCH ×3 (09:54→20:48)
[2020-07-12 14:00] VITALS: BP 134/75
--- NOTE | 2020-07-12 18:12 | IPNPDOC ---
Subjective Date Seen The patient was seen on 07/12/20. Subjective Chief Complaint/HPI Mrs. Fisher is a 74 year old female with TIA, choledocholithiasis, and history of valley fever who presents with persistent lower abdominal pain. She had a few bowel movements this morning and was feeling better in the afternoon. She still feels weak with her legs. Will have physical therapy evaluate. Otherwise, per PFS note, son is considering placement for patient. Son to made decision on Tuesday regarding placement for patient. Objective Physical Examination General Exam: Positive: Alert, Cooperative Eye Exam: Positive: EOMI; Negative: Sclera icteric Neck Exam: Positive: Supple Chest Exam: Positive: Clear to auscultation; Negative: Rales, Rhonchi, Wheezing Heart Exam: Positive: Rate Normal, Regular Rhythm Abdomen Exam: Positive: Normal bowel sounds Extremity Exam: Negative: Edema Neuro Exam: Positive: Normal Speech Psych Exam: Positive: Anxiety Assessment /Plan Assessment Mrs. Fisher is a 74 year old female with TIA, choledocholithiasis, and history of valley fever who presents with persistent lower abdominal pain. She was admitted for jejuno-jejunal intussusception. General surgery was consulted. Recommended small bowel follow through. small bowel follow through was normal. Patient started on diet and a bowel regimen. [place] better with BM. She also felt weak with ambulation. Will order PT. Otherwise, son is considering placement. Son to contact PFS on Tuesday about placement. Plan/VTE VTE Prophylaxis Ordered?: Yes Plan 1. Intussusception -Jejunojejunal intussusception -General surgery consulted -Small bowel follow through negative -Monitor 2. Abdominal pain -Secondary to constipation -Feels better with BM -Continue with bowel regimen 3. Atelectasis -Demonstrated on CT chest. She has history of Valley Fever. Concern for chronic scarring -No clinical signs or symptoms of pneumonia -Breathing well at room air 4. Dementia -Donepezil -Son is considering placement. Pending response on Tuesday 5. Debility -Feels week with ambulation, she is not eating well -BMI 18.9 -Order PT 6. DVT ppx -TEDs Disposition: Son considering placement VS, I&O, 24H, Fishbone Vital Signs/I&O Vital Signs Date Time Temp Pulse Resp B/P (MAP) Pulse Ox O2 Delivery O2 Flow Rate FiO2 07/12/20 15:55 79 130/58 07/12/20 14:00 97.8 15 96 Room Air I&O- Last 24 Hours up to 6 AM 07/12/20 06:00 Intake Total 2550 ml Output Total 1100 ml Balance 1450 ml Laboratory Data 24H LABS Laboratory Tests 2 07/12/20 06:39: Anion Gap 11, Glomerular Filtration Rate > 60.0, Calcium Level 8.7L, Magnesium Level 1.7L, Total Bilirubin 0.3, Aspartate Amino Transf (AST/SGOT) 28, Alanine Aminotransferase (ALT/SGPT) 20, Alkaline Phosphatase 58, Total Protein 6.7, Albumin 2.8L, Albumin/Globulin Ratio 0.7L 07/12/20 09:27: Nucleated Red Blood Cells % (auto) 0.0 CBC/BMP Laboratory Tests 07/12/20 06:39 07/12/20 09:27 Microbiology Microbiology 07/10/20 Blood Culture - Preliminary, Resulted No growth after 24 hours . All specim... 07/10/20 Blood Culture - Preliminary, Resulted No growth after 24 hours . All specim... PAO WILLS DO Jul 12, 2020 18:06
[2020-07-12] MEDS: RAMELTEON 8 MG TAB (ROZEREM) PO PRN (20:48)
[2020-07-12] MEDS: KETOROLAC 30 MG/ML 1ML VIAL IV PRN (20:49)
[2020-07-12 22:00] VITALS: BP 132/65
[2020-07-13] MEDS: KETOROLAC 30 MG/ML 1ML VIAL IV PRN ×2 (04:22→12:35)
[2020-07-13 06:00] VITALS: BP 161/60
[2020-07-13 07:10] LABS: HEMATOCRIT 38.3 % (36.0-47.0); HEMOGLOBIN 12.5 g/dl (12.0-15.5); MEAN CORPUSCULAR HEMOGLOBIN 31.5 pg (27.0-33.0); MEAN CORPUSCULAR HGB CONC 32.6 g/dl (32.0-36.5); MEAN CORPUSCULAR VOLUME 96.5 fl (80.0-96.0); PLATELET COUNT, AUTOMATED 431 10^3/uL (150-450); RED BLOOD COUNT 3.97 10^6/uL (4.00-5.40); WHITE BLOOD COUNT 10.2 10^3/uL (4.0-10.0)
[2020-07-13 07:41] LABS: ALT/SGPT 19 U/L (12-78); BILIRUBIN,TOTAL 0.3 MG/DL (0.2-1.0); BLOOD UREA NITROGEN 5 MG/DL (7-18); CALCIUM LEVEL 9.5 MG/DL (8.8-10.2); CARBON DIOXIDE LEVEL 33 MEQ/L (21-32); CHLORIDE LEVEL 98 MEQ/L (98-107); CREATININE FOR GFR 0.52 MG/DL (0.55-1.30); GLOMERULAR FILTRATION RATE > 60.0 (>39); GLUCOSE, FASTING 121 MG/DL (70-100); MAGNESIUM LEVEL 1.6 MG/DL (1.8-2.4); POTASSIUM SERUM 3.2 MEQ/L (3.5-5.1); SODIUM LEVEL 138 MEQ/L (136-145); TOTAL PROTEIN 6.4 GM/DL (6.4-8.2)
[2020-07-13] MEDS ORDERED: POTASSIUM CHLORIDE 10 MEQ SR TABLET PO ONE (09:00)
[2020-07-13] MEDS: PRIMIDONE 25MG PER 1/2 TABLET PO SCH ×2 (09:36→20:30)
[2020-07-13] MEDS: VENLAFAXINE **XR** 75MG CAPSULE PO SCH ×2 (09:36→20:30)
[2020-07-13] MEDS: DONEPEZIL 5 MG TAB PO SCH (09:36)
[2020-07-13] MEDS: DOCUSATE SODIUM 100MG CAPSULE PO SCH ×2 (09:36→20:29)
[2020-07-13] MEDS: PROPRANOLOL 20 MG TAB PO SCH ×3 (09:37→20:30)
[2020-07-13] MEDS ORDERED: ONDANSETRON 4 MG TAB PO PRN (12:45)
[2020-07-13 14:00] VITALS: BP 152/69
--- NOTE | 2020-07-13 19:07 | IPNPDOC ---
Subjective Date Seen The patient was seen on 07/13/20. Subjective Chief Complaint/HPI Mrs. Fisher is a 74 year old female with TIA, choledocholithiasis, and history of valley fever who presents with persistent lower abdominal pain. Today, her abdominal pain has improved. Denies chest pain or dyspnea. Pending conversation between son and PFS for placement or home Objective Physical Examination General Exam: Positive: Alert, Cooperative Eye Exam: Positive: EOMI; Negative: Sclera icteric Neck Exam: Positive: Supple Chest Exam: Positive: Clear to auscultation; Negative: Rales, Rhonchi, Wheezing Heart Exam: Positive: Rate Normal, Regular Rhythm Abdomen Exam: Positive: Normal bowel sounds Extremity Exam: Negative: Edema Neuro Exam: Positive: Normal Speech Psych Exam: Positive: Anxiety Assessment /Plan Assessment Mrs. Fisher is a 74 year old female with TIA, choledocholithiasis, and history of valley fever who presents with persistent lower abdominal pain. She was admitted for jejuno-jejunal intussusception. General surgery was consulted. Recommended small bowel follow through. small bowel follow through was normal. Patient started on diet and a bowel regimen. [place] better with BM. She also felt weak with ambulation. Will order PT. Otherwise, son is considering placement. Son to contact PFS on Tuesday about placement. Plan/VTE VTE Prophylaxis Ordered?: Yes Plan 1. Intussusception -Jejunojejunal intussusception -General surgery consulted -Small bowel follow through negative -Monitor 2. Abdominal pain -Secondary to constipation -Feels better with BM -Continue with bowel regimen 3. Atelectasis -Demonstrated on CT chest. She has history of Valley Fever. Concern for chronic scarring -No clinical signs or symptoms of pneumonia -Breathing well at room air 4. Dementia -Donepezil -Son is considering placement. Pending response on Tuesday 5. Debility -Order PT 6. DVT ppx -TEDs Disposition: Son considering placement VS, I&O, 24H, Fishbone Vital Signs/I&O Vital Signs Date Time Temp Pulse Resp B/P (MAP) Pulse Ox O2 Delivery O2 Flow Rate FiO2 07/13/20 16:09 63 141/67 07/13/20 14:00 97.4 17 97 Room Air I&O- Last 24 Hours up to 6 AM 07/13/20 06:00 Intake Total 2430 ml Output Total 550 ml Balance 1880 ml Laboratory Data 24H LABS Laboratory Tests 2 07/13/20 06:49: Nucleated Red Blood Cells % (auto) 0.0, Anion Gap 7L, Glomerular Filtration Rate > 60.0, Calcium Level 9.5, Magnesium Level 1.6L, Total Bilirubin 0.3, Aspartate Amino Transf (AST/SGOT) 11, Alanine Aminotransferase (ALT/SGPT) 19, Alkaline Phosphatase 77, Total Protein 6.4, Albumin 3.0L, Albumin/Globulin Ratio 0.9L CBC/BMP Laboratory Tests 07/13/20 06:49 Microbiology Microbiology 07/10/20 Blood Culture - Preliminary, Resulted No Growth after 72 hours. All specime... 07/10/20 Blood Culture - Preliminary, Resulted No Growth after 72 hours. All specime... PAO WILLS DO Jul 13, 2020 19:07
[2020-07-13] MEDS: RAMELTEON 8 MG TAB (ROZEREM) PO PRN (20:30)
[2020-07-13] MEDS: ACETAMINOPHEN TAB 650MG DOSE (2X325MG) PO PRN (20:32)
[2020-07-13 22:00] VITALS: BP 138/82
[2020-07-14 06:00] VITALS: BP 131/74
[2020-07-14 07:14] LABS: HEMATOCRIT 37.9 % (36.0-47.0); HEMOGLOBIN 12.3 g/dl (12.0-15.5); MEAN CORPUSCULAR HEMOGLOBIN 31.8 pg (27.0-33.0); MEAN CORPUSCULAR HGB CONC 32.5 g/dl (32.0-36.5); MEAN CORPUSCULAR VOLUME 97.9 fl (80.0-96.0); PLATELET COUNT, AUTOMATED 413 10^3/uL (150-450); RED BLOOD COUNT 3.87 10^6/uL (4.00-5.40); WHITE BLOOD COUNT 6.1 10^3/uL (4.0-10.0)
[2020-07-14 07:42] LABS: ALBUMIN 2.9 GM/DL (3.2-5.2); ALT/SGPT 18 U/L (12-78); BILIRUBIN,TOTAL 0.2 MG/DL (0.2-1.0); BLOOD UREA NITROGEN 5 MG/DL (7-18); CARBON DIOXIDE LEVEL 29 MEQ/L (21-32); CHLORIDE LEVEL 103 MEQ/L (98-107); CREATININE FOR GFR 0.52 MG/DL (0.55-1.30); GLOMERULAR FILTRATION RATE > 60.0 (>39); GLUCOSE, FASTING 107 MG/DL (70-100); MAGNESIUM LEVEL 1.5 MG/DL (1.8-2.4); POTASSIUM SERUM 3.5 MEQ/L (3.5-5.1); SODIUM LEVEL 140 MEQ/L (136-145); TOTAL PROTEIN 6.6 GM/DL (6.4-8.2)
[2020-07-14] MEDS: PROPRANOLOL 20 MG TAB PO SCH ×3 (09:00→20:04)
[2020-07-14] MEDS: DOCUSATE SODIUM 100MG CAPSULE PO SCH ×2 (09:07→20:04)
[2020-07-14] MEDS: DONEPEZIL 5 MG TAB PO SCH (09:07)
[2020-07-14] MEDS: VENLAFAXINE **XR** 75MG CAPSULE PO SCH ×2 (09:07→20:04)
[2020-07-14] MEDS: PRIMIDONE 25MG PER 1/2 TABLET PO SCH ×2 (09:07→20:04)
[2020-07-14 14:00] VITALS: BP 114/68
[2020-07-14] MEDS: RAMELTEON 8 MG TAB (ROZEREM) PO PRN (20:04)
[2020-07-14] MEDS: ACETAMINOPHEN TAB 650MG DOSE (2X325MG) PO PRN (20:05)
[2020-07-14 22:00] VITALS: BP 135/63
--- NOTE | 2020-07-14 22:09 | IPNPDOC ---
Subjective Date Seen The patient was seen on 07/14/20. Subjective Chief Complaint/HPI Mrs. Fisher is a 74 year old female with TIA, choledocholithiasis, and history of valley fever who presents with persistent lower abdominal pain. Today, she feels well. Abdominal pain and appetite improved. No dyspnea. Son has decided placement. Objective Physical Examination General Exam: Positive: Alert, Cooperative Eye Exam: Positive: EOMI; Negative: Sclera icteric Neck Exam: Positive: Supple Chest Exam: Positive: Clear to auscultation; Negative: Rales, Rhonchi, Wheezing Heart Exam: Positive: Rate Normal, Regular Rhythm Abdomen Exam: Positive: Normal bowel sounds Extremity Exam: Negative: Edema Neuro Exam: Positive: Normal Speech Psych Exam: Positive: Anxiety Assessment /Plan Assessment Mrs. Fisher is a 74 year old female with TIA, choledocholithiasis, and history of valley fever who presents with persistent lower abdominal pain. She was admitted for jejuno-jejunal intussusception. General surgery was consulted. Recommended small bowel follow through. small bowel follow through was normal. Patient started on diet and a bowel regimen. [place] better with BM. Otherwise, son has decided on placement. Plan/VTE VTE Prophylaxis Ordered?: Yes Plan 1. Intussusception -Jejunojejunal intussusception -General surgery consulted -Small bowel follow through negative -Monitor 2. Abdominal pain -Secondary to constipation -Feels better with BM -Continue with bowel regimen 3. Atelectasis -Demonstrated on CT chest. She has history of Valley Fever. Concern for chronic scarring -No clinical signs or symptoms of pneumonia -Breathing well at room air 4. Dementia -Donepezil -Son is considering placement. Pending response on Tuesday 5. Debility -Order PT 6. DVT ppx -TEDs Disposition: Pending placement VS, I&O, 24H, Fishbone Vital Signs/I&O Vital Signs Date Time Temp Pulse Resp B/P (MAP) Pulse Ox O2 Delivery O2 Flow Rate FiO2 07/14/20 20:04 64 142/57 07/14/20 14:00 97.0 14 98 Room Air I&O- Last 24 Hours up to 6 AM 07/14/20 06:00 Intake Total 2010 ml Output Total 1600 ml Balance 410 ml Laboratory Data 24H LABS Laboratory Tests 2 07/14/20 06:56: Nucleated Red Blood Cells % (auto) 0.0, Anion Gap 8, Glomerular Filtration Rate > 60.0, Calcium Level 9.0, Magnesium Level 1.5L, Total Bilirubin 0.2, Aspartate Amino Transf (AST/SGOT) 13, Alanine Aminotransferase (ALT/SGPT) 18, Alkaline Phosphatase 76, Total Protein 6.6, Albumin 2.9L, Albumin/Globulin Ratio 0.8L CBC/BMP Laboratory Tests 07/14/20 06:56 Microbiology Microbiology 07/10/20 Blood Culture - Preliminary, Resulted No Growth after 72 hours. All specime... 07/10/20 Blood Culture - Preliminary, Resulted No Growth after 72 hours. All specime... PAO WILLS DO Jul 14, 2020 22:09
[2020-07-15 06:00] VITALS: BP 154/87
[2020-07-15 06:20] LABS: HEMATOCRIT 38.6 % (36.0-47.0); HEMOGLOBIN 12.5 g/dl (12.0-15.5); MEAN CORPUSCULAR HEMOGLOBIN 32.3 pg (27.0-33.0); MEAN CORPUSCULAR HGB CONC 32.4 g/dl (32.0-36.5); MEAN CORPUSCULAR VOLUME 99.7 fl (80.0-96.0); PLATELET COUNT, AUTOMATED 423 10^3/uL (150-450); RED BLOOD COUNT 3.87 10^6/uL (4.00-5.40); WHITE BLOOD COUNT 7.2 10^3/uL (4.0-10.0)
[2020-07-15 06:49] LABS: ALBUMIN 2.8 GM/DL (3.2-5.2); ALT/SGPT 18 U/L (12-78); BILIRUBIN,TOTAL 0.1 MG/DL (0.2-1.0); BLOOD UREA NITROGEN 10 MG/DL (7-18); CALCIUM LEVEL 9.6 MG/DL (8.8-10.2); CARBON DIOXIDE LEVEL 32 MEQ/L (21-32); CHLORIDE LEVEL 103 MEQ/L (98-107); CREATININE FOR GFR 0.56 MG/DL (0.55-1.30); GLOMERULAR FILTRATION RATE > 60.0 (>39); GLUCOSE, FASTING 104 MG/DL (70-100); MAGNESIUM LEVEL 1.7 MG/DL (1.8-2.4); POTASSIUM SERUM 3.8 MEQ/L (3.5-5.1); SODIUM LEVEL 140 MEQ/L (136-145); TOTAL PROTEIN 6.7 GM/DL (6.4-8.2)
[2020-07-15] MEDS ORDERED: MAG SULF 1GM/100ML (MAG RUN) 1 GM in IV 1 EA IV ONE (08:15)
[2020-07-15] MEDS: DONEPEZIL 5 MG TAB PO SCH (08:57)
[2020-07-15] MEDS: DOCUSATE SODIUM 100MG CAPSULE PO SCH (08:57)
[2020-07-15] MEDS: PRIMIDONE 25MG PER 1/2 TABLET PO SCH (08:57)
[2020-07-15] MEDS: VENLAFAXINE **XR** 75MG CAPSULE PO SCH (08:58)
[2020-07-15 08:59] VITALS: BP 132/75
[2020-07-15] MEDS: PROPRANOLOL 20 MG TAB PO SCH (08:59)
[2020-07-15] MEDS ORDERED: MAGNESIUM OXIDE 400 MG TAB (MAG-OX) PO SCH (09:00)
--- NOTE | 2020-07-15 13:17 | DS.PDOC ---
Discharge Summary General Date of Admission Jul 10, 2020 at 22:06 Date of Discharge 07/15/20 Discharge Summary DISCHARGE DIAGNOSES: Intussusception Constipation Atelectasis Dementia H/o Valley Fever w chronic scarring Debility DISCHARGE MEDICATIONS: Please see below. ALLERGIES: Please see below. DISCHARGE INSTRUCTIONS: Continue bowel regimen. outpt fu w pcp within 5 days of d/c. HOSPITAL COURSE: 74-year-old female with history of valley fever, choledocholithiasis, TIA, presented to the emergency room with lower quadrant abdominal pain. CT abdomen and pelvis showed jejunojejunal intussusception and chronic constipation. Patient was evaluated by general surgery, Dr. Ugo Dimas who recommended conservative management with bowel regimen and no surgical intervention. Small bowel follow-through was negative. Despite consolidation noted on CT abdomen and pelvis. Patient denied any cough, fever, chills and was not treated. In the emergency room, Workup included lactic acid which was normal at 1, CBC with differential, comprehensive metabolic panel were normal, Urinalysis was negative. She was given a bowel regimen with 3 bowel movements on 07/12/2020, And 2 on 07/13/2020. , She is medically stable for discharge to [facility]. PHYSICAL EXAMINATION ON DISCHARGE: VITAL SIGNS: Please see below. General Exam: Positive: Alert, Cooperative, no distress Eye Exam: Positive: EOMI; Negative: Sclera icteric Neck Exam: Positive: Supple, no JVD or thyromegaly Chest Exam: Positive: Clear to auscultation; Negative: Rales, Rhonchi, Wheezing Heart Exam: Positive: Rate Normal, Regular Rhythm Abdomen Exam: Positive: Normal bowel sounds , Nondistended. No rebound or guarding Extremity Exam: Negative: Edema Neuro Exam: Positive: Normal Speech Psych Exam: Positive: Anxiety LABORATORY DATA/IMAGING STUDIES/MICROBIOLOGY: Please see below. 07/10/20 CT ABD/PELVIS: 1. Jejuno jejunal intussusception involving proximal jejunum. No obstruction. 2. Progressive atelectasis and consolidation in the lateral segment of the right middle lobe. 3. Hepatic steatosis. 4. 5 mm low-density lesion in the left lobe of the liver. 5 mm low-density splenic lesion. In a low risk individual, these are likely benign. No follow-up recommended based on these findings. 5. Air and fluid containing structure present in the gallbladder fossa may represent a cystic duct remnant. No change from previous. 6. Simple cyst right kidney. No follow-up recommended. COMMENTS: Consistent with the [employer]'s Incidental Findings Committee white paper (J Am Gwendolyn Radiol 2018): Any incidental renal lesion less than 1 cm or classified as too small to characterize, or any incidental cystic renal lesion characterized as simple-appearing, is likely benign. No follow-up imaging is recommended for these lesions per consensus recommendations based on imaging criteria. Electronically signed by: Payton Carrillo On 07/10/2020 20:27:41 SMALL BOWEL FOLLOW-THROUGH INDICATION: abnormal CT. COMPARISON: None TECHNIQUE: This procedure was performed by Jaylyn Duong, [facility], under the direct supervision of Dr. Rdz. Images were reviewed with Dr. Rdz prior to dictation. Liquid barium was administered and the barium column was followed through the small bowel to the level of the terminal ileum. FINDINGS: The wearing apparel presser film shows no organomegaly or pathological masses. The intestinal gas pattern is unremarkable. Small bowel transit time is approximately 20 minutes. During fluoroscopy gentle palpation shows all loops are freely movable and pliable. There is no fixed angulated loops. The small bowel mucosal pattern is normal in course and caliber. There is no transition to suggest a partial small bowel obstruction. Spot filming of the terminal ileum shows it to be unremarkable. The appendix is visualized. IMPRESSION: 1. Small bowel transit time of approximately 20 minutes. 0.5 minutes of fluoroscopy time was utilized for this procedure. Some fluoroscopic images are performed with last image hold technology. These images require no additional radiation. <Electronically signed by Jaylyn Duong > 07/11/20 1606 <Electronically signed by Akbar Rdz > 07/11/20 1718 DD: JAYLYN DUONG [facility] 07/11/208 DISPOSITION: SSV TIME SPENT ON DISCHARGE:30 minutes. Vital Signs/I&Os Vital Signs Date Time Temp Pulse Resp B/P (MAP) Pulse Ox O2 Delivery O2 Flow Rate FiO2 07/15/20 08:59 86 132/75 07/15/20 06:00 98.0 18 95 07/14/20 14:00 Room Air I&O- Last 24 Hours up to 6 AM 07/15/20 06:00 Intake Total 2030 ml Output Total 1000 ml Balance 1030 ml Laboratory Data Labs 24H Laboratory Tests 2 2/2/21 05:38: Nucleated Red Blood Cells % (auto) 0.0, Anion Gap 5L, Glomerular Filtration Rate > 60.0, Calcium Level 9.6, Magnesium Level 1.7L, Total Bilirubin 0.1L, Aspartate Amino Transf (AST/SGOT) 10, Alanine Aminotransferase (ALT/SGPT) 18, Alkaline Phosphatase 83, Total Protein 6.7, Albumin 2.8L, Albumin/Globulin Ratio 0.7L 07/15/20 09:53: Coronavirus (COVID-19)(PCR) NEGATIVE CBC/BMP Laboratory Tests 07/15/20 05:38 Microbiology Microbiology 07/10/20 Blood Culture - Preliminary, Resulted No Growth after 72 hours. All specime... 07/10/20 Blood Culture - Preliminary, Resulted No Growth after 72 hours. All specime... Discharge Medications Scheduled Aspirin (Aspirin EC) 81 Mg Tablet.dr, 81 MG PO DAILY, (Reported) Atorvastatin Calcium (Atorvastatin Calcium) 40 Mg Tablet, 40 MG PO DAILY, (Reported) Cyanocobalamin (Vitamin B-12) (Vitamin B-12) 1,000 Mcg Tab.subl, 1,000 MCG SL DAILY, (Reported) Docusate Sodium (Colace) 100 Mg Capsule, 100 MG PO BID, (Reported) Donepezil HCl (Donepezil HCl) 10 Mg Tablet, 10 MG PO DAILY, (Reported) Fenofibrate (Fenofibrate) 160 Mg Tablet, 160 MG PO DAILY, (Reported) Omeprazole (Omeprazole) 20 Mg Capsule.dr, 20 MG PO DAILY, (Reported) Primidone (Primidone) 50 Mg Tablet, 25 MG PO BID, (Reported) Propranolol HCl (Propranolol HCl) 40 Mg Tablet, 40 MG PO TID, (Reported) Venlafaxine HCl (Venlafaxine HCl ER) 150 Mg Cap.er.24h, 150 MG PO BID, (Reported) Scheduled PRN Ondansetron (Ondansetron Odt) 4 Mg Tab.rapdis, 4 MG PO Q6H PRN for NAUSEA OR VOMITING, (Reported) Polyethylene Glycol 3350 (Miralax) 17 Gm Powd.pack, 17 GM PO DAILY PRN for CONSTIPATION, (Reported) Tramadol HCl (Tramadol HCl) 50 Mg Tablet, 50 MG PO Q6H PRN for PAIN, (Reported) Miscellaneous Medications [Patient Comment] , (Reported) MED REC COMPLETED VIA EXTERNAL MED HISTORY AND PREVIOUS DISCHARGE PAPERWORK Allergies Coded Allergies: morphine (Verified Adverse Reaction, Mild, restlessness, 10/02/19) TARA REYNA MD Jul 15, 2020 13:17
== END 2020-07-15 12:58 | DRG 389 ==
LOC: M ED 17:08 → M ED INP 22:06 → M MSPAV 07-11 01:31
PROVIDERS: ADMIT Internal Medicine; ATTEND General Practice
DX: K56.1 Intussusception (principal); J98.11 Atelectasis; Z68.1 Body mass index [BMI] 19.9 or less, adult; F03.90 Unspecified dementia, unspecified severity, without behavioral disturbance, psychotic disturbance, mood disturbance, and anxiety; J98.4 Other disorders of lung; F32.9 Major depressive disorder, single episode, unspecified; E78.5 Hyperlipidemia, unspecified; K21.9 Gastro-esophageal reflux disease without esophagitis; R53.81 Other malaise; G47.00 Insomnia, unspecified; K59.00 Constipation, unspecified; K76.89 Other specified diseases of liver; K76.0 Fatty (change of) liver, not elsewhere classified; Z86.73 Personal history of transient ischemic attack (TIA), and cerebral infarction without residual deficits; Z86.19 Personal history of other infectious and parasitic diseases; Z20.822 Contact with and (suspected) exposure to COVID-19; Z79.82 Long term (current) use of aspirin; Z79.899 Other long term (current) drug therapy; Z88.5 Allergy status to narcotic agent; Z90.49 Acquired absence of other specified parts of digestive tract

== ENCOUNTER → 2020-07-16 | Outpatient (REF) ==
[~2020-07-16] MED LIST changes: +DONE10TA90 PO; +MIRA1POW3 PO; +PATIENT COMMENT
== END ==
PROVIDERS: ATTEND Internal Medicine
DX: Z20.822 Contact with and (suspected) exposure to COVID-19 (principal)

== ENCOUNTER → 2020-07-22 | Outpatient (REF) ==
[2020-07-22 11:49] LABS: HEMATOCRIT 34.8 % (36.0-47.0); HEMOGLOBIN 10.9 g/dl (12.0-15.5); MEAN CORPUSCULAR HEMOGLOBIN 32.2 pg (27.0-33.0); MEAN CORPUSCULAR HGB CONC 31.3 g/dl (32.0-36.5); MEAN CORPUSCULAR VOLUME 102.7 fl (80.0-96.0); PLATELET COUNT, AUTOMATED 361 10^3/uL (150-450); RED BLOOD COUNT 3.39 10^6/uL (4.00-5.40); WHITE BLOOD COUNT 14.6 10^3/uL (4.0-10.0)
[2020-07-22 12:21] LABS: BLOOD UREA NITROGEN 11 MG/DL (7-18); CALCIUM LEVEL 9.4 MG/DL (8.8-10.2); CARBON DIOXIDE LEVEL 31 MEQ/L (21-32); CHLORIDE LEVEL 101 MEQ/L (98-107); CREATININE FOR GFR 0.73 MG/DL (0.55-1.30); GLOMERULAR FILTRATION RATE > 60.0 (>39); GLUCOSE, FASTING 151 MG/DL (70-100); POTASSIUM SERUM 4.1 MEQ/L (3.5-5.1); SODIUM LEVEL 139 MEQ/L (136-145)
== END ==
PROVIDERS: ATTEND Family Medicine
DX: F03.90 Unspecified dementia, unspecified severity, without behavioral disturbance, psychotic disturbance, mood disturbance, and anxiety (principal)

== ENCOUNTER → 2020-07-23 | Outpatient (REF) ==
[2020-07-23 09:40] LABS: HEMATOCRIT 35.2 % (36.0-47.0); HEMOGLOBIN 11.2 g/dl (12.0-15.5); MEAN CORPUSCULAR HEMOGLOBIN 32.6 pg (27.0-33.0); MEAN CORPUSCULAR HGB CONC 31.8 g/dl (32.0-36.5); MEAN CORPUSCULAR VOLUME 102.3 fl (80.0-96.0); PLATELET COUNT, AUTOMATED 361 10^3/uL (150-450); RED BLOOD COUNT 3.44 10^6/uL (4.00-5.40); WHITE BLOOD COUNT 15.2 10^3/uL (4.0-10.0)
[2020-07-23 10:04] LABS: INR 1.04; PROTHROMBIN TIME 13.8 SECONDS (12.5-14.3)
[2020-07-23 12:20] LABS: BLOOD UREA NITROGEN 12 MG/DL (7-18); CARBON DIOXIDE LEVEL 29 MEQ/L (21-32); CHLORIDE LEVEL 100 MEQ/L (98-107); CREATININE FOR GFR 0.61 MG/DL (0.55-1.30); GLOMERULAR FILTRATION RATE > 60.0 (>39); GLUCOSE, FASTING 100 MG/DL (70-100); POTASSIUM SERUM 3.8 MEQ/L (3.5-5.1); SODIUM LEVEL 137 MEQ/L (136-145)
--- NOTE | 2020-07-23 16:51 | REPPI ---
INDICATION: LEUCOCYTOSIS 117-1. COMPARISON: 06/21/2020. TECHNIQUE: AP view chest. FINDINGS: Previously noted consolidative infiltrate in the right middle lobe continues to improve. There is mild residual opacity at that location. There is again elevation of the right hemidiaphragm. No acute infiltrate is seen on the left. The heart is not significantly enlarged. The mediastinal silhouette is unchanged. IMPRESSION: Continued improvement of right middle lobe consolidation with mild residual. No new area of infiltrate. <Electronically signed by Ugo Hammond > 07/23/20 0508
== END ==
PROVIDERS: ATTEND Internal Medicine
DX: Z20.822 Contact with and (suspected) exposure to COVID-19 (principal)

== ENCOUNTER → 2020-07-24 | Outpatient (REF) ==
[2020-07-24 09:56] LABS: HEMATOCRIT 35.5 % (36.0-47.0); HEMOGLOBIN 11.2 g/dl (12.0-15.5); MEAN CORPUSCULAR HEMOGLOBIN 32.7 pg (27.0-33.0); MEAN CORPUSCULAR HGB CONC 31.5 g/dl (32.0-36.5); MEAN CORPUSCULAR VOLUME 103.5 fl (80.0-96.0); PLATELET COUNT, AUTOMATED 294 10^3/uL (150-450); RED BLOOD COUNT 3.43 10^6/uL (4.00-5.40); WHITE BLOOD COUNT 15.4 10^3/uL (4.0-10.0)
[2020-07-24 10:18] LABS: BLOOD UREA NITROGEN 9 MG/DL (7-18); CALCIUM LEVEL 8.9 MG/DL (8.8-10.2); CARBON DIOXIDE LEVEL 25 MEQ/L (21-32); CHLORIDE LEVEL 98 MEQ/L (98-107); CREATININE FOR GFR 0.49 MG/DL (0.55-1.30); GLOMERULAR FILTRATION RATE > 60.0 (>39); GLUCOSE, FASTING 101 MG/DL (70-100); SODIUM LEVEL 134 MEQ/L (136-145)
[2020-07-24 13:02] LABS: RSV AMPLIFICATION NEGATIVE (NEGATIVE)
== END ==
PROVIDERS: ATTEND Physician Assistant
DX: D72.829 Elevated white blood cell count, unspecified (principal)

== ENCOUNTER → 2020-07-25 | Outpatient (REF) ==
[2020-07-25 09:28] LABS: HEMATOCRIT 35.1 % (36.0-47.0); HEMOGLOBIN 11.3 g/dl (12.0-15.5); MEAN CORPUSCULAR HEMOGLOBIN 32.2 pg (27.0-33.0); MEAN CORPUSCULAR HGB CONC 32.2 g/dl (32.0-36.5); PLATELET COUNT, AUTOMATED 457 10^3/uL (150-450); RED BLOOD COUNT 3.51 10^6/uL (4.00-5.40); WHITE BLOOD COUNT 11.6 10^3/uL (4.0-10.0)
[2020-07-25 09:52] LABS: ALBUMIN 2.8 GM/DL (3.2-5.2); ALT/SGPT 35 U/L (12-78); BILIRUBIN,TOTAL 0.3 MG/DL (0.2-1.0); BLOOD UREA NITROGEN 10 MG/DL (7-18); CALCIUM LEVEL 9.4 MG/DL (8.8-10.2); CARBON DIOXIDE LEVEL 32 MEQ/L (21-32); CHLORIDE LEVEL 102 MEQ/L (98-107); GLOMERULAR FILTRATION RATE > 60.0 (>39); GLUCOSE, FASTING 103 MG/DL (70-100); POTASSIUM SERUM 4.5 MEQ/L (3.5-5.1); SODIUM LEVEL 140 MEQ/L (136-145); TOTAL PROTEIN 6.7 GM/DL (6.4-8.2)
== END ==
PROVIDERS: ATTEND Physician Assistant
DX: R19.7 Diarrhea, unspecified (principal)

== ENCOUNTER → 2020-07-25 | Outpatient (CLI) | payer MEDICARE ==
--- NOTE | 2020-07-25 10:58 | REP ---
INDICATION: ABD PAIN COMPARISON: Comparison CT study 10 July 2020.. TECHNIQUE: Helical scanning is acquired in 4 mm axial images were reformatted. Coronal and sagittal MPR images were generated and reviewed. FINDINGS: Extensive collapse and consolidation are again noted in the right middle lobe and to a lesser extent right lower lobe with air bronchograms. There are granulomatous calcifications in the right lower lobe as well. No pleural effusion is seen. Lung bases are otherwise clear. The right lower lobe consolidation is more prominent than on the 10 July 2020 study. Is the liver and the spleen are normal in size homogeneous in texture. No adrenal lesion is seen. No pancreatic abnormality is noted. The gallbladder is surgically absent. The air and fluid containing small structure in the gallbladder fossa noted on the 10 July 2020 study is also again noted, possibly cystic duct remnant. Kidneys are morphologically intact. There is a cyst in the lower pole region of the right kidney again noted. No retroperitoneal mass or adenopathy is seen. Uterus is tipped somewhat to the left but unremarkable. No ovarian lesion is seen. Urinary bladder is smooth and intact. No abdominal wall defect is seen. Small and large intestinal bowel loops are unremarkable. Descending duodenal diverticulum again seen. Normal appendix noted. IMPRESSION: Extensive collapse and consolidation persists in the right middle lobe. There is adjacent and progressive consolidation in the right lower lobe. Post cholecystectomy. Normal appendix. No acute intra-abdominal or pelvic abnormality seen. <Electronically signed by Akbar Rdz > 07/25/20 2325
== END ==
LOC: M RAD 10:19
PROVIDERS: ATTEND Physician Assistant
DX: R91.8 Other nonspecific abnormal finding of lung field (principal); N28.1 Cyst of kidney, acquired; R10.9 Unspecified abdominal pain

== ENCOUNTER → 2020-07-28 | Outpatient (REF) | payer MEDICARE ==
[2020-07-28 10:30] LABS: HEMATOCRIT 35.7 % (36.0-47.0); HEMOGLOBIN 11.4 g/dl (12.0-15.5); MEAN CORPUSCULAR HEMOGLOBIN 31.8 pg (27.0-33.0); MEAN CORPUSCULAR HGB CONC 31.9 g/dl (32.0-36.5); MEAN CORPUSCULAR VOLUME 99.7 fl (80.0-96.0); PLATELET COUNT, AUTOMATED 447 10^3/uL (150-450); RED BLOOD COUNT 3.58 10^6/uL (4.00-5.40); WHITE BLOOD COUNT 9.3 10^3/uL (4.0-10.0)
[2020-07-28 10:40] LABS: BLOOD UREA NITROGEN 8 MG/DL (7-18); CALCIUM LEVEL 8.9 MG/DL (8.8-10.2); CARBON DIOXIDE LEVEL 26 MEQ/L (21-32); CHLORIDE LEVEL 100 MEQ/L (98-107); GLOMERULAR FILTRATION RATE > 60.0 (>39); GLUCOSE, FASTING 102 MG/DL (70-100); POTASSIUM SERUM 3.9 MEQ/L (3.5-5.1); SODIUM LEVEL 137 MEQ/L (136-145)
== END ==
PROVIDERS: ATTEND Family Medicine
DX: D72.829 Elevated white blood cell count, unspecified (principal)

== ENCOUNTER → 2020-07-29 | Outpatient (REF) ==
[2020-07-29 11:26] LABS: HEMATOCRIT 34.3 % (36.0-47.0); HEMOGLOBIN 10.9 g/dl (12.0-15.5); MEAN CORPUSCULAR HEMOGLOBIN 31.8 pg (27.0-33.0); MEAN CORPUSCULAR HGB CONC 31.8 g/dl (32.0-36.5); PLATELET COUNT, AUTOMATED 607 10^3/uL (150-450); RED BLOOD COUNT 3.43 10^6/uL (4.00-5.40); WHITE BLOOD COUNT 13.9 10^3/uL (4.0-10.0)
[2020-07-29 11:58] LABS: BLOOD UREA NITROGEN 9 MG/DL (7-18); CARBON DIOXIDE LEVEL 29 MEQ/L (21-32); CHLORIDE LEVEL 99 MEQ/L (98-107); CREATININE FOR GFR 0.64 MG/DL (0.55-1.30); GLOMERULAR FILTRATION RATE > 60.0 (>39); GLUCOSE, FASTING 140 MG/DL (70-100); POTASSIUM SERUM 4.1 MEQ/L (3.5-5.1); SODIUM LEVEL 136 MEQ/L (136-145)
== END ==
PROVIDERS: ATTEND Physician Assistant
DX: F03.90 Unspecified dementia, unspecified severity, without behavioral disturbance, psychotic disturbance, mood disturbance, and anxiety (principal)

== ENCOUNTER → 2020-07-30 | Outpatient (REF) | payer MEDICARE ==
[2020-07-30 11:40] LABS: INR 1.04; PARTIAL THROMBOPLASTIN TIME 30.3 SECONDS (24.2-38.5); PROTHROMBIN TIME 13.8 SECONDS (12.5-14.3)
[2020-07-30 12:21] LABS: IMMUNOGLOBULIN M 90.8 MG/DL (40-230)
== END ==
PROVIDERS: ATTEND Internal Medicine
DX: Z20.822 Contact with and (suspected) exposure to COVID-19 (principal)

== ENCOUNTER → 2020-07-31 | Outpatient (REF) ==
[2020-07-31 09:27] LABS: HEMATOCRIT 35.6 % (36.0-47.0); HEMOGLOBIN 11.3 g/dl (12.0-15.5); MEAN CORPUSCULAR HEMOGLOBIN 31.8 pg (27.0-33.0); MEAN CORPUSCULAR HGB CONC 31.7 g/dl (32.0-36.5); MEAN CORPUSCULAR VOLUME 100.3 fl (80.0-96.0); PLATELET COUNT, AUTOMATED 659 10^3/uL (150-450); RED BLOOD COUNT 3.55 10^6/uL (4.00-5.40); WHITE BLOOD COUNT 7.6 10^3/uL (4.0-10.0)
[2020-07-31 09:56] LABS: BLOOD UREA NITROGEN 9 MG/DL (7-18); CALCIUM LEVEL 9.1 MG/DL (8.8-10.2); CARBON DIOXIDE LEVEL 30 MEQ/L (21-32); CHLORIDE LEVEL 101 MEQ/L (98-107); CREATININE FOR GFR 0.55 MG/DL (0.55-1.30); GLOMERULAR FILTRATION RATE > 60.0 (>39); GLUCOSE, FASTING 144 MG/DL (70-100); POTASSIUM SERUM 3.9 MEQ/L (3.5-5.1); SODIUM LEVEL 139 MEQ/L (136-145)
== END ==
PROVIDERS: ATTEND Family Medicine
DX: B38.2 Pulmonary coccidioidomycosis, unspecified (principal)

== ENCOUNTER → 2020-08-06 | Outpatient (REF) | PROVIDERS: ATTEND Internal Medicine | DX: Z20.822 Contact with and (suspected) exposure to COVID-19 (principal) ==

== ENCOUNTER → 2020-08-12 | Outpatient (REF) | payer MEDICARE ==
[~2020-08-12] MED LIST changes: +NAPR-849 PO; -NAPR250T4 PO
[2020-08-12 11:18] LABS: BASO # 0.1 10^3/uL (0.0-0.2); BASO % 0.9 % (0.0-1.0); EOS # 0.2 10^3/uL (0.0-0.5); EOS % 2.3 % (0.0-3.0); HEMATOCRIT 35.6 % (36.0-47.0); HEMOGLOBIN 11.3 g/dl (12.0-15.5); LYMPH # 1.9 10^3/uL (1.5-5.0); LYMPH % 24.4 % (24.0-44.0); MEAN CORPUSCULAR HEMOGLOBIN 31.7 pg (27.0-33.0); MEAN CORPUSCULAR HGB CONC 31.7 g/dl (32.0-36.5); MONO # 0.9 10^3/uL (0.0-0.8); MONO % 11.9 % (2.0-8.0); NEUTROPHILS # 4.7 10^3/uL (1.5-8.5); NEUTROPHILS % 59.9 % (36.0-66.0); PLATELET COUNT, AUTOMATED 625 10^3/uL (150-450); RED BLOOD COUNT 3.56 10^6/uL (4.00-5.40); WHITE BLOOD COUNT 7.9 10^3/uL (4.0-10.0)
[2020-08-12 11:48] LABS: ALBUMIN 2.8 GM/DL (3.2-5.2); ALT/SGPT 13 U/L (12-78); BILIRUBIN,TOTAL 0.5 MG/DL (0.2-1.0); BLOOD UREA NITROGEN 11 MG/DL (7-18); CALCIUM LEVEL 9.3 MG/DL (8.8-10.2); CARBON DIOXIDE LEVEL 30 MEQ/L (21-32); CHLORIDE LEVEL 100 MEQ/L (98-107); CREATININE FOR GFR 0.56 MG/DL (0.55-1.30); FREE T4 1.12 NG/DL (0.76-1.46); GLOMERULAR FILTRATION RATE > 60.0 (>39); GLUCOSE, FASTING 81 MG/DL (70-100); POTASSIUM SERUM 4.1 MEQ/L (3.5-5.1); SODIUM LEVEL 136 MEQ/L (136-145); TOTAL PROTEIN 6.9 GM/DL (6.4-8.2)
[2020-08-13 13:24] LABS: ALBUMIN % 46.6 % (55.8-66.1); ALPHA-1-GLOBULIN % 7.2 % (2.9-4.9); BETA-1-GLOBULINS % 6.6 % (4.7-7.2)
[2020-08-13 13:25] LABS: ALBUMIN 3.22 GM/DL (3.29-5.55); ALPHA-2-GLOBULINS 1.17 GM/DL (0.42-0.99); BETA-1-GLOBULINS 0.46 GM/DL (0.28-0.60); BETA-2-GLOBULINS 0.41 GM/DL (0.19-0.55); GAMMA GLOBULIN % 16.6 % (11.1-18.8); GAMMA GLOBULINS 1.15 GM/DL (0.65-1.58)
== END ==
PROVIDERS: ATTEND Family Medicine
DX: R53.83 Other fatigue (principal)

== ENCOUNTER → 2020-08-13 | Outpatient (REF) | payer MEDICARE | PROVIDERS: ATTEND Internal Medicine | DX: Z20.822 Contact with and (suspected) exposure to COVID-19 (principal) ==

== ENCOUNTER → 2020-08-19 | Outpatient (CLI) | payer MEDICARE ==
--- NOTE | 2020-08-19 11:30 | REP ---
INDICATION: PULMONARY COCCIDIOIDOMYCOSIS COMPARISON: 07/10/2020 TECHNIQUE: Axial noncontrast images from the thoracic inlet to the upper abdomen with coronal and sagittal reformations. This CT examination was performed using the following dose reduction techniques: Automated exposure control, adjustment of mA and/or kv according to the patient's size, and use of iterative reconstruction technique. FINDINGS: Large areas of consolidation with air bronchograms involving the right middle lobe and right lower lobe has significantly increased from prior examination. Few calcified granuloma in the region of consolidation are identified and similar to prior examination measuring up to approximately 12 mm. No obvious mucous plugging is appreciated. The residual aerated right hemithorax and the aerated left lung are relatively clear and without further acute process. No effusion. No pneumothorax. No significant adenopathy identifiable by noncontrast evaluation. Further evaluation of the mediastinum demonstrates stable atherosclerotic changes to the thoracic aorta and coronary arteries. Aorta appears mildly ectatic and measures up to 3.1 cm diameter. No cardiomegaly or pericardial effusion. Musculoskeletal structures without acute osseous abnormality. IMPRESSION: Significantly increased moderate to large areas of consolidation with air bronchograms involving right middle lobe and right lower lobe. <Electronically signed by Anand Henry > 08/19/20 1123
== END ==
LOC: M RAD 10:48
PROVIDERS: ATTEND Internal Medicine Pulmonary Disease
DX: B38.2 Pulmonary coccidioidomycosis, unspecified (principal); Z20.822 Contact with and (suspected) exposure to COVID-19
CPT/HCPCS: 71250; U0002

== ENCOUNTER → 2020-08-19 | Outpatient (REF) | payer MEDICARE | PROVIDERS: ATTEND Internal Medicine | DX: Z20.822 Contact with and (suspected) exposure to COVID-19 (principal) ==

== ENCOUNTER → 2020-08-20 | Outpatient (REF) | payer MEDICARE | PROVIDERS: ATTEND Internal Medicine | DX: Z20.822 Contact with and (suspected) exposure to COVID-19 (principal) ==

== ENCOUNTER → 2020-08-27 | Outpatient (REF) | payer MEDICARE ==
[2020-08-27 10:41] LABS: INR 0.94; PROTHROMBIN TIME 12.8 SECONDS (12.5-14.3)
[2020-08-27 10:56] LABS: IMMUNOGLOBULIN M 92.3 MG/DL (40-230)
== END ==
PROVIDERS: ATTEND Internal Medicine Pulmonary Disease
DX: B38.2 Pulmonary coccidioidomycosis, unspecified (principal)

== ENCOUNTER → 2020-09-01 | Outpatient (REF) | payer MEDICARE ==
[2020-09-01 10:38] LABS: BASO % 0.7 % (0.0-1.0); EOS # 0.2 10^3/uL (0.0-0.5); EOS % 2.8 % (0.0-3.0); HEMATOCRIT 39.4 % (36.0-47.0); HEMOGLOBIN 12.4 g/dl (12.0-15.5); LYMPH # 1.9 10^3/uL (1.5-5.0); LYMPH % 35.1 % (24.0-44.0); MEAN CORPUSCULAR HEMOGLOBIN 31.9 pg (27.0-33.0); MEAN CORPUSCULAR HGB CONC 31.5 g/dl (32.0-36.5); MEAN CORPUSCULAR VOLUME 101.3 fl (80.0-96.0); MONO # 0.7 10^3/uL (0.0-0.8); NEUTROPHILS # 2.6 10^3/uL (1.5-8.5); NEUTROPHILS % 48.2 % (36.0-66.0); PLATELET COUNT, AUTOMATED 341 10^3/uL (150-450); RED BLOOD COUNT 3.89 10^6/uL (4.00-5.40); WHITE BLOOD COUNT 5.4 10^3/uL (4.0-10.0)
[2020-09-01 11:28] LABS: BLOOD UREA NITROGEN 13 MG/DL (7-18); CALCIUM LEVEL 9.6 MG/DL (8.8-10.2); CARBON DIOXIDE LEVEL 28 MEQ/L (21-32); CHLORIDE LEVEL 106 MEQ/L (98-107); CREATININE FOR GFR 0.43 MG/DL (0.55-1.30); GLOMERULAR FILTRATION RATE > 60.0 (>39); GLUCOSE, FASTING 82 MG/DL (70-100); POTASSIUM SERUM 4.1 MEQ/L (3.5-5.1); SODIUM LEVEL 141 MEQ/L (136-145)
== END ==
PROVIDERS: ATTEND Internal Medicine Pulmonary Disease
DX: R91.8 Other nonspecific abnormal finding of lung field (principal)

== ENCOUNTER → 2020-09-26 | Outpatient (CLI) | payer MEDICARE ==
[~2020-09-26] MED LIST changes: +ACET-683 PO; +DITR5TAB PO; +ROZE8TAB16 PO; +VOLT1GEL15 TD
== END ==
LOC: M LABSMTC 11:54
PROVIDERS: ATTEND Anesthesiology
DX: Z01.812 Encounter for preprocedural laboratory examination (principal); Z20.822 Contact with and (suspected) exposure to COVID-19

== ENCOUNTER 2020-10-01 06:12 | Day surgery (SDC) | payer MEDICARE ==
[~2020-10-01] VITALS: Ht 157.5 cm; Wt 48.9 kg
[2020-10-01] MEDS ORDERED: ALBUTEROL SULFATE 2.5 MG/0.5 ML INH NEB SOLN INH ONE (06:15)
[2020-10-01] MEDS ORDERED: LR 1,000 ML IV ONE (06:15)
[2020-10-01] MEDS ORDERED: LIDOCAINE 4% INJ 5ML AMP INH ONE (06:15)
[2020-10-01] MEDS ORDERED: CETACAINE SPRAY 5GM As Ordered ONE (07:11)
[2020-10-01] MEDS ORDERED: THROMBIN SOLN 5,000 UNITS VIAL As Ordered ONE (07:11)
[2020-10-01] MEDS ORDERED: EPINEPHrine 1MG/10ML SYRINGE 1.5IN As Ordered ONE (07:11)
[2020-10-01] MEDS ORDERED: propofoL 200 MG/20 ML VIAL As Ordered ONE (07:17)
[2020-10-01] MEDS ORDERED: LIDOCAINE 2% 100MG/5ML SDV (FOR ANES.) As Ordered ONE (07:17)
[2020-10-01] MEDS ORDERED: MIDAZOLAM INJ 2MG/2ML VIAL (J2250 PER 1MG) As Ordered ONE (07:17)
[2020-10-01] MEDS ORDERED: fentaNYL 100 MCG/2 ML INJECTION (J3010) As Ordered ONE (07:17)
[2020-10-01] MEDS ORDERED: dexameTHASONE 4 MG/ML 1ML VIAL (J1100 PER 1MG) As Ordered ONE (07:17)
[2020-10-01] MEDS ORDERED: ROCURONIUM BROMIDE 50 MG/5 ML VIAL As Ordered ONE (07:17)
[2020-10-01] MEDS ORDERED: SEVOFLURANE INHAL SOLN 250 ML BTL As Ordered ONE (07:20)
[2020-10-01] MEDS ORDERED: LIDOCAINE 2% JELLY 5ML TUBE As Ordered ONE (07:38)
[2020-10-01] MEDS ORDERED: PHENYLephrine 500MCG 5ML (100MCG/ML) SYRINGE As Ordered ONE (08:03)
[2020-10-01] MEDS ORDERED: SUGAMMADEX SODIUM 500 MG/5 ML VIAL (BRIDION) As Ordered ONE (08:26)
[2020-10-01] MEDS ORDERED: ONDANSETRON 4MG/2ML VIAL As Ordered ONE (08:27)
[2020-10-01] MEDS ORDERED: LACRILUBE (AKWA TEARS) OPHTH OINT 3.5 GM As Ordered ONE (08:48)
[2020-10-01] MEDS ORDERED: fentaNYL 100 MCG/2 ML INJECTION (J3010) IV PRN (09:15)
[2020-10-01] MEDS ORDERED: oxyCODONE 5MG TAB PO PRN (09:15)
[2020-10-01] MEDS ORDERED: LR 1,000 ML IV SCH (09:15)
[2020-10-01] MEDS ORDERED: ONDANSETRON 4MG/2ML VIAL IV PRN (09:15)
--- NOTE | 2020-10-01 09:37 | REP ---
INDICATION: R/O PNEUMO COMPARISON: 07/23/2020, 06/21/2020 TECHNIQUE: Portable AP view of the chest FINDINGS: Mediastinum and cardiac silhouette are stable and within normal limits. Area of opacification in the right lower lobe has gradually increased when compared through 06/21/2020 and warrants further investigation/follow-up. No pneumothorax. Small right effusion cannot be excluded. Skeletal structures are intact. IMPRESSION: Increased area of opacification gradually increased when compared through 06/21/2020. Correlation and follow-up recommended. <Electronically signed by Anand Henry > 10/01/20 0956
[2020-10-01 10:26] LABS: APPEARANCE CLOUDY (CLEAR); COLOR PINK (COLORLESS); SOURCE RIGHT LOWER LOBE
[2020-10-01 10:30] VITALS: BP 161/92
--- NOTE | 2020-10-01 20:14 | ROOR ---
Patient Name: Karli Fisher Procedure Date: 10/01/2020 7:09 AM Date of : 1945 Admit Type: Outpatient Age: 75 Note Status: Finalized Attending MD: Marcia Dennis MD Procedure: Bronchoscopy Indications: Atelectasis of the right lower lobe, Abnormal CT scan of chest Providers: Marcia Dennis MD (Doctor), Javier Boyd DO (1st Assisting Doctor) Referring MD: Rodrigo Bhatti MD (Referring MD) Requesting Physician: Medicines: Lidocaine 4% via nebulizer with Albuterol 2.5 mg, General Anesthesia, Cetacaine topical, Epinephrine 1 mg/10 mL topical 1 mL Complications: No immediate complications. Estimated blood loss: Minimal Procedure: Pre-Anesthesia Assessment: - Prior to the procedure, a History and Physical was performed, and patient medications and allergies were reviewed. The patient's tolerance of previous anesthesia was also reviewed. The risks and benefits of the procedure and the sedation options and risks were discussed with the patient. All questions were answered, and informed consent was obtained. Prior Anticoagulants: The patient has taken aspirin, last dose was day of procedure. ASA Grade Assessment: II - A patient with mild systemic disease. After reviewing the risks and benefits, the patient was deemed in satisfactory condition to undergo the procedure. - Patient identification and proposed procedure were verified prior to the procedure by the physician, the nurse, the anesthesiologist, the uniforms sales representative and the application technician. The procedure was verified in the procedure room. The Bronchoscope was introduced through the mouth, via the endotracheal tube (the patient was intubated for the procedure) and advanced to the tracheobronchial tree of both lungs. The procedure was accomplished without difficulty. The patient tolerated the procedure well. Findings: The trachea is of normal caliber. The yessi is sharp. The entire tracheobronchial tree was examined to at least the first subsegmental level. Bronchial anatomy was normal. In the left bronchial tree there was pale/jaime scattered submucosal nodularity and scattered pitting. In the right upper lobe there was submucosal nodularity. Leading into the right bronchus intermedius there appeared to be a pseudomembrane formation occluding orifice to right middle and right lower lobe. With suctioning there was some clearance of the pseudomebrane with apparent extrinsic compression of the bronchus intermedius. Brushing was done of the right bronchus intermedius leading into right lower lobe. Brushing was obtained with a cytology brush and sent for routine cytology. Using radial ultrasound and fluoroscopy there transbronchial biopsies of an area of infiltration were performed in the right lower lobe using forceps and sent for histopathology examination. After biopsy and some clearance of the pseudomembrane there was thick purulent secretions coming from the right lower lobe. Bronchoalveolar lavage was performed in the right lower lobe of the lung and sent for cell count, bacterial culture, viral smears & culture, and fungal & AFB analysis and cytology. The return was blood-tinged and cloudy. Mucous plugs were present in the return fluid. An endobronchial ultrasound endoscope was utilized in order to assist with fine needle aspiration in the subcarinal area and in the right hilum. Transbronchial needle aspirations of a lymph nodes were performed in the subcarinal area and in the right hilum using an Olympus EBUS-TBNA 21 gauge needle and sent for routine cytology. The procedure was guided by ultrasound. Transbronchial needle aspiration technique was selected because the sampling site was not visible endoscopically. Impression: - Atelectasis of the right lower lobe - Abnormal CT scan of chest - Brushings were obtained. - Transbronchial lung biopsies were performed. - Endobronchial ultrasound was performed. - A transbronchial needle aspiration was performed. Recommendation: - Await test results. Procedure Code(s): --- Professional --- 61733, Bronchoscopy, rigid or flexible, including fluoroscopic guidance, when performed; with transbronchial needle aspiration biopsy(s), trachea, main stem and/or lobar bronchus(i) 68989, Bronchoscopy, rigid or flexible, including fluoroscopic guidance, when performed; with transbronchial lung biopsy(s), single lobe 49810, Bronchoscopy, rigid or flexible, including fluoroscopic guidance, when performed; with bronchial alveolar lavage 96399, Bronchoscopy, rigid or flexible, including fluoroscopic guidance, when performed; with brushing or protected brushings 32295, Bronchoscopy, rigid or flexible, including fluoroscopic guidance, when performed; with transendoscopic endobronchial ultrasound (EBUS) during bronchoscopic diagnostic or therapeutic intervention(s) for peripheral lesion(s) (List separately in addition to code for primary procedure[s]) CPT copyright 2019 [employer] [place] [employer]. All rights reserved. The codes documented in this report are preliminary and upon purchasing and fiscal clerk review may be revised to meet current compliance requirements. Attending Participation: I personally performed the entire procedure. Marcia Dennis MD 10/01/2020 8:13:26 PM Javier Boyd DO Number of Addenda: 0 Note Initiated On: 10/01/2020 7:09 AM
== END 2020-10-01 10:40 | disposition home or self-care (01) ==
LOC: M SDC 06:12
PROVIDERS: ATTEND Internal Medicine Pulmonary Disease
DX: J98.11 Atelectasis (principal); R91.8 Other nonspecific abnormal finding of lung field; B38.2 Pulmonary coccidioidomycosis, unspecified; R13.10 Dysphagia, unspecified; J47.9 Bronchiectasis, uncomplicated; R06.02 Shortness of breath; K21.9 Gastro-esophageal reflux disease without esophagitis; G47.00 Insomnia, unspecified; E78.5 Hyperlipidemia, unspecified; I49.1 Atrial premature depolarization; R53.82 Chronic fatigue, unspecified; I10 Essential (primary) hypertension; R01.1 Cardiac murmur, unspecified; Z86.73 Personal history of transient ischemic attack (TIA), and cerebral infarction without residual deficits; Z79.899 Other long term (current) drug therapy; Z79.891 Long term (current) use of opiate analgesic; Z79.82 Long term (current) use of aspirin; Z88.5 Allergy status to narcotic agent
CPT/HCPCS: 31623; 31624; 31628; 31629; 31654; 71045; 76000; 87070; 87102; 87116; 87186; 87205; 87206; 88104; 88108; 88173; 88305; 88313; 89051; J1100; J2250; J2370; J2405; J3010

== ENCOUNTER 2020-10-04 18:00 | Inpatient (IN) | payer MEDICARE ==
[~2020-10-04] VITALS: Ht 157.5 cm; Wt 46.6 kg
[2020-10-04] MEDS ORDERED: ACET1TAB55 PO (18:26)
[2020-10-04] MEDS ORDERED: ASPI81CH33 PO (18:26)
[2020-10-04] MEDS ORDERED: B-12100020 PO (18:26)
[2020-10-04] MEDS ORDERED: PROC5TAB57 PO (18:26)
[2020-10-04] MEDS ORDERED: MILKSUS3 PO (18:26)
[2020-10-04 18:39] LABS: BASO # 0.1 10^3/uL (0.0-0.2); BASO % 0.4 % (0.0-1.0); EOS # 0.2 10^3/uL (0.0-0.5); EOS % 1.4 % (0.0-3.0); HEMATOCRIT 42.6 % (36.0-47.0); LYMPH # 1.9 10^3/uL (1.5-5.0); LYMPH % 16.7 % (24.0-44.0); MEAN CORPUSCULAR HEMOGLOBIN 32.8 pg (27.0-33.0); MEAN CORPUSCULAR HGB CONC 32.9 g/dl (32.0-36.5); MEAN CORPUSCULAR VOLUME 99.8 fl (80.0-96.0); MONO # 1.2 10^3/uL (0.0-0.8); MONO % 10.4 % (2.0-8.0); NEUTROPHILS # 7.8 10^3/uL (1.5-8.5); NEUTROPHILS % 70.1 % (36.0-66.0); PLATELET COUNT, AUTOMATED 352 10^3/uL (150-450); RED BLOOD COUNT 4.27 10^6/uL (4.00-5.40); WHITE BLOOD COUNT 11.2 10^3/uL (4.0-10.0)
--- NOTE | 2020-10-04 19:01 | REP ---
INDICATION: Altered Mental Status COMPARISON: 10/01/2020 TECHNIQUE: Portable AP view of the chest FINDINGS: Persistent right lower lobe opacity consistent with previously noted right middle lobe collapse and possible right lower lobe atelectasis with moderate pleural effusion similar to prior examination. Remainder of lung acosta are clear. Visualized portions of the mediastinum and cardiac silhouette are stable/normal. IMPRESSION: Persistent opacity in the right lower lung zone consistent with previously noted right middle lobe collapse and likely associated right lower lobe atelectasis and pleural effusion. <Electronically signed by Anand Henry > 10/04/20 [id number]
[2020-10-04 19:08] LABS: AMPHETAMINES LEVEL URINE NEGATIVE (NEGATIVE); BARBITURATES URINE NEGATIVE (NEGATIVE); BENZODIAZEPINES URINE POSITIVE (NEGATIVE); CANNABINOIDS URINE NEGATIVE (NEGATIVE); COCAINE METABOLITE URINE NEGATIVE (NEGATIVE); METHADONE URINE NEGATIVE (NEGATIVE); OPIATES URINE NEGATIVE (NEGATIVE); PHENCYCLIDINE URINE NEGATIVE (NEGATIVE)
[2020-10-04 19:11] LABS: ALBUMIN 3.8 GM/DL (3.2-5.2); ALT/SGPT 27 U/L (12-78); BILIRUBIN,DIRECT < 0.1 MG/DL (0.0-0.2); BILIRUBIN,TOTAL 0.3 MG/DL (0.2-1.0); BLOOD UREA NITROGEN 20 MG/DL (7-18); CALCIUM LEVEL 9.5 MG/DL (8.8-10.2); CARBON DIOXIDE LEVEL 28 MEQ/L (21-32); CHLORIDE LEVEL 103 MEQ/L (98-107); CK-MB VALUE MASS < 1.0 NG/ML (<3.6); CPK CREATINE PHOSPHOKINASE 132 U/L (26-192); CREATININE FOR GFR 0.66 MG/DL (0.55-1.30); ETHYL ALCOHOL (ETHANOL) < 0.003 % (0.000-0.010); GLOMERULAR FILTRATION RATE > 60.0 (>39); GLUCOSE, FASTING 112 MG/DL (70-100); MB/CK RELATIVE INDEX 0.76 (< OR =4); POTASSIUM SERUM 3.4 MEQ/L (3.5-5.1); SALICYLATE LEVEL < 1.7 MG/DL (5.0-30.0); SODIUM LEVEL 140 MEQ/L (136-145); TOTAL PROTEIN 7.4 GM/DL (6.4-8.2); TROPONIN I 0.03 NG/ML (< 0.10)
--- NOTE | 2020-10-04 19:32 | REPVR ---
PROCEDURE INFORMATION: Exam: CT Head Without Contrast Exam date and time: 10/04/2020 6:14 PM Age: 75 years old Clinical indication: Altered mental status/memory loss; Confusion or disorientation; Additional info: AMS; Fall TECHNIQUE: Imaging protocol: Computed tomography of the head without contrast. Radiation optimization: All CT scans at this facility use at least one of these dose optimization techniques: automated exposure control; mA and/or kV adjustment per patient size (includes targeted exams where dose is matched to clinical indication); or iterative reconstruction. COMPARISON: CT Head without contrast 06/21/2020 4:00 PM FINDINGS: Brain: No mass, mass effect, parenchymal hemorrhage, or evidence of large acute infarct. No asymmetric sulcal effacement or loss of the gutierrez-white interface. No extra-axial hemorrhage. Mild diffuse cerebral volume loss. Patchy hypodensity again seen in the periventricular and subcortical white matter of both hemispheres consistent with small vessel ischemic disease. Cerebral ventricles: There is no hydrocephalus. Basal cisterns are patent. No midline shift. Bones/joints: Unremarkable. No acute fracture. Paranasal sinuses: Visualized sinuses are unremarkable. No fluid levels. Mastoid air cells: Visualized mastoid air cells are well aerated. Vasculature: Atherosclerotic calcification in the internal carotid arteries, particularly on the left. Soft tissues: Unremarkable. IMPRESSION: 1. No intracranial hemorrhage or evidence of large acute infarct. 2. Atherosclerosis, cerebral volume loss, and small vessel ischemic disease. Electronically signed by: Rohini Flynn On 10/04/2020 19:32:00 PM
[2020-10-04 19:37] LABS: MAGNESIUM LEVEL 1.3 MG/DL (1.8-2.4)
[2020-10-04] MEDS ORDERED: MAG SULF 1GM/100ML (MAG RUN) 1 GM in IV 1 EA IV ONE (19:45)
--- NOTE | 2020-10-04 19:53 | REPVR ---
PROCEDURE INFORMATION: Exam: CT Cervical Spine Without Contrast Exam date and time: 10/04/2020 6:14 PM Age: 75 years old Clinical indication: Other: AMS; Fall TECHNIQUE: Imaging protocol: Computed tomography images of the cervical spine without contrast. Radiation optimization: All CT scans at this facility use at least one of these dose optimization techniques: automated exposure control; mA and/or kV adjustment per patient size (includes targeted exams where dose is matched to clinical indication); or iterative reconstruction. COMPARISON: No relevant prior studies available. FINDINGS: Vertebrae: Additional findings: There was significant motion artifact on the initial attempt. Therefore, a repeat set of axial images obtained with repeat sagittal and coronal reformatted images. There is anterior fusion with anterior plate and vertebral body screws as well as presumed interbody graft at C4 through C6. No evidence of hardware complication. Interbody graft appears to be mostly incorporated. Slightly limited evaluation for subtle fractures due to motion artifact particularly at the C1 through C3 levels. However, motion artifact is less pronounced than on the initial series. No definite acute fracture. There is 2 mm anterolisthesis at C3-C4 on the images with less motion. 2 mm anterolisthesis is seen at C6-C7. Degenerative facet disease particularly at C2 through C4, most pronounced on the right at C2-C3. Disc heights of the unfused levels are relatively well maintained. There is also degenerative facet disease which is severe on the right at C6-C7. C2-C3: Moderate neural foraminal narrowing on the right. No significant central canal narrowing. C3-C4: Mild neural foraminal narrowing on the left. No central canal narrowing C4-C5: No significant disc protrusion. No severe spinal canal stenosis. No significant neural foraminal narrowing. C5-C6: No significant disc protrusion. No severe spinal canal stenosis. No significant neural foraminal narrowing. C6-C7: No significant disc protrusion. No severe spinal canal stenosis. No significant neural foraminal narrowing. C7-T1: No significant disc protrusion. No severe spinal canal stenosis. No significant neural foraminal narrowing. Soft tissues: No precervical soft tissue swelling. Esophagus: The upper thoracic esophagus is patulous. Lungs: Included lung apices are clear. IMPRESSION: 1. No definite acute fracture. Study limited by motion artifact, significantly improved on repeat sequence but still of fact ting the upper cervical spine. 2. 2 mm anterolisthesis at C3-C4 and C6-C7. 3. C4 through C6 fusion without evidence of hardware complication. 4. Patulous upper thoracic esophagus. Electronically signed by: Rohini Flynn On 10/04/2020 19:53:10 PM
[2020-10-04] MEDS ORDERED: MAALOX 30 ML SUSP *UDC PO PRN (20:15)
[2020-10-04] MEDS ORDERED: NS 1,000 ML IV SCH (20:15)
[2020-10-04] MEDS ORDERED: POTASSIUM CHLORIDE 10 MEQ SR TABLET PO ONE (20:15)
[2020-10-04] MEDS ORDERED: MOM 30ML SUSPENSION UDC PO PRN (20:15)
--- NOTE | 2020-10-04 20:16 | HPEPDOC ---
[facility] Medical History & Physical Date of Admission Oct 04, 2020 Date of Service: Oct 04, 2020 Primary Care Physician: Rodrigo Bhatti MD Attending Physician: CARL MATTSON MD History and Physical TIME OF SERVICE: 7:55 PM CHIEF COMPLAINT: AMS HISTORY OF PRESENT ILLNESS: (hx obtained from Antoine Adhikari and the patient's son) This 75 yr old F was admitted her in May 2020 for acute encephalopathy possibly secondary to barbiturate use and TIA and again in Jun 2020 for acute metabolic encephalopathy / forgetfulness of unclear cause. During both admissions brain imaging studies were negative for an acute process. Today she was found lying on the floor for an unknown time by staff at the assisted living facility; when they tried to help her she was combative therefore they gave her 10mg of versed. She is confused but denies any pain and is unable to provide any meaningful history. Her son thinks that she has been eating well recently. REVIEW OF SYSTEMS: Incomplete because of patient's memory lapse PAST MEDICAL/ SURGICAL HISTORY: Dementia Depression TIA DLP Chronic HTN / Chronic small vessel ischemic disease GERD C4 through C6 fusion Cholelithiasis Tonsillectomy Partial colectomy with ostomy with subsequent reversal 2 to manage perforated diverticulitis SOCIAL HISTORY: She lives at an assisted living facility. Her drug screen was positive for barbiturates. 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 HOME MEDICATIONS: Please see below. PHYSICAL EXAM Vital Signs Date Time Temp Pulse Resp B/P (MAP) Pulse Ox O2 Delivery O2 Flow Rate FiO2 10/04/20 18:15 136 94 Room Air 10/04/20 18:33 190/91 (124) GENERAL APPEARANCE: well nourished and developed / asleep but arousable with vocal stimuli HEENT: EOMI / MMM & pink CARDIOVASCULAR: tachycardic / NMRG LUNGS: CTAB on RA ABDOMEN: flat / soft & NT MUSCULOSKELETAL: NCAT / LENY x 4 INTEGUMENT: not flushed, bruised or diaphoretic NEUROLOGICAL: speech not dysarthric PSYCHIATRIC: A&O to person able to follow simple commands / appears confused even when I ask her simple questions such as if she would like something to dri nk LABS Immature Granulocyte % (Auto) 1.0, Neutrophils (%) (Auto) 70.1H, Lymphocytes (%) (Auto) 16.7L, Monocytes (%) (Auto) 10.4H, Eosinophils (%) (Auto) 1.4, Basophils (%) (Auto) 0.4, Neutrophils # (Auto) 7.8, Lymphocytes # (Auto) 1.9, Monocytes # (Auto) 1.2H, Eosinophils # (Auto) 0.2, Basophils # (Auto) 0.1, Nucleated Red Blood Cells % (auto) 0.0, Urine Color YELLOW, Urine Appearance CLEAR, Urine pH 7.0, Urine Specific [place] 1.018, Urine Protein 1+H, Urine Glucose (UA) 1+H, Urine Ketones NEGATIVE, Urine Blood NEGATIVE, Urine Nitrite NEGATIVE, Urine Bilirubin NEGATIVE, Urine Urobilinogen 0.2, Urine Leukocyte Esterase NEGATIVE, Urine WBC (Auto) 1, Urine RBC (Auto) 2, Urine Hyaline Casts (Auto) 0, Urine Bacteria (Auto) NEGATIVE, Urine Squamous Epithelial Cells 0, Urine Amorphous Sediment SMALLH, Urine Mucus (Auto) SMALL, Urine Sperm (Auto) , Anion Gap 9, Glomerular Filtration Rate > 60.0, Calcium Level 9.5, Magnesium Level 1.3L, Total Bilirubin 0.3, Direct Bilirubin < 0.1, Aspartate Amino Transf (AST/SGOT) 28, Alanine Aminotransferase (ALT/SGPT) 27, Alkaline Phosphatase 65, Total Creatine Kinase 132, Creatine Kinase MB < 1.0, Creatine Kinase MB Relative Index 0.76, Troponin I 0.03, Total Protein 7.4, Albumin 3.8, Albumin/Globulin Ratio 1.1L, Thyroid Stimulating Hormone (TSH) 2.370, Salicylates Level < 1.7L, Urine Opiates Screen NEGATIVE, Urine Methadone Screen NEGATIVE, Acetaminophen Level 3.0L, Urine Barbiturates Screen NEGATIVE, Urine Phencyclidine Screen NEGATIVE, Urine Amphetamines Screen NEGATIVE, Urine Benzodiazepines Screen POSITIVEH, Urine Cocaine Metabolite Screen NEGATIVE, Urine Cannabinoids Screen NEGATIVE, Ethyl Alcohol IMAGING: Chest xray " IMPRESSION: Persistent opacity in the right lower lung zone consistent with previously noted right middle lobe collapse and likely associated right lower lobe atelectasis and pleural effusion." CT head w/o contrast "IMPRESSION: 1. No intracranial hemorrhage or evidence of large acute infarct. 2. Atherosclerosis, cerebral volume loss, and small vessel ischemic disease. " CT cervical spine w/o contrast "IMPRESSION: 1. No definite acute fracture. Study limited by motion artifact, significantly improved on repeat sequence but still of fact ting the upper cervical spine. 2. 2 mm anterolisthesis at C3-C4 and C6-C7. 3. C4 through C6 fusion without evidence of hardware complication. 4. Patulous upper thoracic esophagus. " MICROBIOLOGY: respiratory panel neg EKG tachycardia w LBBB (not new) and PVCs ASSESSMENT: Ms. Fisher is a 74-year-old w a history of dementia, depression, TIA, dyslipidemia, HTN,small vessel ischemic dz and multiple abdominal surgeries, who was brought to the hospital for evaluation of encephalopathy. PLAN: 1 Recurrent encephalopathy Possibly due to HTN Encephalopathy (SBP in the 190s) vs non-cirrhotic hyperammonemia vs post ictal state vs other cause TBD Antoine Adhikari discussed the case with who recommended observation and seizure precautions Plan: admit to medical floor / f/u prolactin (add on ) to r/o seizure / f/u B1 / frequent neurochecks /seizure precautions / hold oxybuytynin & prochlorperazine / start amlodipine 2.5mg QHS 2 Uncontrolled HTN vs HTN Encephalopathy Plan: start amlodipine 3 TIA / Chronic small vessel ischemic disease Plan: ASA & statin 4 Tachycardia Possibly due to hypomagnesemia and hypokalemia and or dehydration Plan: telemetry / orthostats / IVF / replete lytes 6 Non-cirrhotic ? Hyperammonemia Her LFTs & Hep panel are normal but she has a remote hx of alcohol abuse. She is not taking meds that commonly cause elevated ammonia. 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 or other cause TBD Plan: f/u coags & Hep B / trail of lactulose to see if this helps with her mental status / f/u repeat ammonia /the day time team may consider calling GI or Neuro to help determine the cause and if the elevation is clinically meaningful 7 Suspected fall Cause TBD Plan: fall precautions / day time team may consider PT eval / f/u repeat CPK in the AM 8 Hypokalemia and Hypomagnesemia Possibly due to omeprazole Plan: replete lytes and f/u repeat K and Mg in the morning / hold omeprazole 9 Dementia Plan:donepezil 10 Depression Plan:venlafaxine 11 DLP Plan: atorvastatin & fenofibrate DVT px w SCDs Dispo: home after less than 2 midnights stay LATE ENTRY Per d/w BEBO Ramos the patient's ortho stats were neg but the pt's arms were shaking and c/o feeling light headed while transitioning from lying down, to sitting and standin. The day time team may consider MRI to r/o vertebrobasilar insufficiency Home Medications Scheduled Acetaminophen (Acetaminophen) 500 Mg Tablet, 1,000 MG PO BID Aspirin (Aspirin) 81 Mg Tab.chew, 81 MG PO DAILY Atorvastatin Calcium (Atorvastatin Calcium) 40 Mg Tablet, 40 MG PO QHS Cyanocobalamin (Vitamin B-12) (B-12) 1,000 Mcg Tablet, 1,000 MCG PO DAILY Donepezil HCl (Donepezil HCl) 10 Mg Tablet, 10 MG PO QHS Fenofibrate (Fenofibrate) 160 Mg Tablet, 160 MG PO DAILY Omeprazole (Omeprazole) 20 Mg Capsule.dr, 20 MG PO DAILY Oxybutynin Chloride (Ditropan Xl) 5 Mg Tab.er.24, 5 MG PO QHS Venlafaxine HCl (Venlafaxine HCl ER) 150 Mg Cap.er.24h, 150 MG PO BID Scheduled PRN Acetaminophen (Acetaminophen) 325 Mg Tablet, 650 MG PO Q4H PRN for PAIN Diclofenac Sodium (Voltaren) 100 Gm Gel..gram., 4 GRAM TD QID PRN for PAIN APPLY TO NECK, UPPER BACK, ANKLES, FEET, AND TOES Magnesium Hydroxide (Milk of Magnesia) 400 Mg/5 Ml Oral.susp, 30 ML PO DAILY PRN for CONSTIPATION Polyethylene Glycol 3350 (Miralax) 17 Gm Powd.pack, 17 GM PO DAILY PRN for CONSTIPATION Prochlorperazine (Prochlorperazine Maleate) 5 Mg Tablet, 5 MG PO BID PRN for NAUSEA Ramelteon (Rozerem) 8 Mg Tablet, 8 MG PO QHS PRN for SLEEP Allergies Coded Allergies: morphine (Verified Adverse Reaction, Mild, restlessness, 10/01/20) A-FIB/CHADSVASC A-FIB History Current/History of A-Fib/PAF?: No Current PO Anticoag Therapy: No CARL MATTSON MD Oct 04, 2020 20:16
[2020-10-04] MEDS ORDERED: MIRALAX *UNIT DOSE* 17GM PACKET PO PRN (20:25)
[2020-10-04 20:41] LABS: RSV AMPLIFICATION NEGATIVE (NEGATIVE)
[2020-10-04 22:27] VITALS: BP 179/86
[2020-10-05] MEDS: DONEPEZIL 5 MG TAB PO SCH ×2 (00:07→20:42)
[2020-10-05] MEDS: ATORVASTATIN 20 MG TAB PO SCH ×2 (00:07→20:41)
[2020-10-05] MEDS: LACTULOSE 20 GM/30 ML SYRUP UD PO SCH ×2 (00:07→09:24)
[2020-10-05] MEDS: ACETAMINOPHEN TAB 650MG DOSE (2X325MG) PO PRN ×3 (00:10→20:42)
[2020-10-05 00:40] VITALS: BP 186/78
[2020-10-05 01:37] VITALS: BP_SYST 158; BP_SYST 169; BP_SYST 173; BP_DIAS 100; BP_DIAS 89
[2020-10-05] MEDS ORDERED: ONDANSETRON 4 MG ORAL DISINTEGRATING TAB PO ONE (02:10)
[2020-10-05 06:00] VITALS: BP 169/70
[2020-10-05 06:23] LABS: HEMATOCRIT 41.5 % (36.0-47.0); HEMOGLOBIN 13.6 g/dl (12.0-15.5); MEAN CORPUSCULAR HEMOGLOBIN 32.6 pg (27.0-33.0); MEAN CORPUSCULAR HGB CONC 32.8 g/dl (32.0-36.5); MEAN CORPUSCULAR VOLUME 99.5 fl (80.0-96.0); PLATELET COUNT, AUTOMATED 366 10^3/uL (150-450); RED BLOOD COUNT 4.17 10^6/uL (4.00-5.40); WHITE BLOOD COUNT 13.3 10^3/uL (4.0-10.0)
[2020-10-05 06:32] LABS: INR 0.99; PROTHROMBIN TIME 13.3 SECONDS (12.5-14.3)
[2020-10-05 06:33] LABS: PARTIAL THROMBOPLASTIN TIME 28.3 SECONDS (24.2-38.5)
[2020-10-05 06:45] LABS: BLOOD UREA NITROGEN 14 MG/DL (7-18); CALCIUM LEVEL 8.8 MG/DL (8.8-10.2); CARBON DIOXIDE LEVEL 29 MEQ/L (21-32); CHLORIDE LEVEL 103 MEQ/L (98-107); CREATININE FOR GFR 0.49 MG/DL (0.55-1.30); GLOMERULAR FILTRATION RATE > 60.0 (>39); GLUCOSE, FASTING 108 MG/DL (70-100); POTASSIUM SERUM 3.2 MEQ/L (3.5-5.1); SODIUM LEVEL 140 MEQ/L (136-145)
[2020-10-05] MEDS ORDERED: POTASSIUM CHLORIDE 10 MEQ SR TABLET PO ONE (07:35)
--- NOTE | 2020-10-05 08:37 | REP ---
INDICATION: hyperammonemia, no prior cirrhosis hx COMPARISON: 07/07/2020 TECHNIQUE: Real time gutierrez scale ultrasound examination using curved array transducer. FINDINGS: Liver demonstrates mild increased echotexture suggesting fatty infiltration. No focal hepatic lesions are identified. The pancreas is incompletely evaluated but visualized portions appear normal. Patient is noted to be status post cholecystectomy. No biliary ductal dilatation is appreciated and the common bile duct measures 3.9 mm diameter. Right kidney is normal in reniform shape without hydronephrosis and measures 9.5 x 4.8 x 4.0 cm. IMPRESSION: Hepatosteatosis. <Electronically signed by Anand Henry > 10/05/20 0812
[2020-10-05] MEDS: ENOXAPARIN 40MG/0.4ML SYRINGE (J1650 PER 10MG) SC SCH (09:22)
[2020-10-05] MEDS: ASPIRIN 81 MG CHEW TABLET PO SCH (09:22)
[2020-10-05] MEDS: OMEPRAZOLE 20 MG CAP PO SCH (09:23)
[2020-10-05] MEDS: VENLAFAXINE **XR** 75MG CAPSULE PO SCH ×2 (09:23→17:57)
[2020-10-05] MEDS: FENOFIBRATE 145 MG TAB (TRICOR) PO SCH (09:23)
[2020-10-05] MEDS: CYANOCOBALAMIN 1,000MCG/ML VIAL (J3420) IM SCH (09:24)
--- NOTE | 2020-10-05 11:49 | ECGEPIP ---
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
[2020-10-05] MEDS ORDERED: LIDOCAINE 2% JELLY 5ML TUBE TOP PRN (12:10)
[2020-10-05 12:24] LABS: MAGNESIUM LEVEL 1.9 MG/DL (1.8-2.4)
--- NOTE | 2020-10-05 12:42 | IPNPDOC ---
Date Seen The patient was seen on 10/05/20. Progress Note SUBJECTIVE: Complains of nausea, ammonia level wnl this AM. Liver US: hepatosteatosis. OBJECTIVE: PHYSICAL EXAMINATION: Vital Signs: Pleas see below GENERAL APPEARANCE: NAD, resting in bed, AAOx 3 HEENT: EOMI / MMM & pink CARDIOVASCULAR: sinus tachycardia / NMRG LUNGS: CTAB on RA ABDOMEN: flat / soft & NT / no organomegaly MUSCULOSKELETAL: NCAT / LENY x 4 INTEGUMENT: not flushed, bruised or diaphoretic NEUROLOGICAL: speech not dysarthric PSYCHIATRIC: A&O to person able to follow simple commands / appears confused even when I ask her simple questions such as if she would like something to drink LABORATORY: Please see below MICROBIOLOGY: Respiratory panel: neg IMAGING: Liver US: Hepatosteatosis CXR: Persistent opacity in the right lower lung zone consistent with previously noted right middle lobe collapse and likely associated right lower lobe atelectasis and pleural effusion. CT head w/o contrast : 1. No intracranial hemorrhage or evidence of large acute infarct. 2. Atherosclerosis, cerebral volume loss, and small vessel ischemic disease. CT cervical spine w/o contrast: 1. No definite acute fracture. Study limited by motion artifact, significantly improved on repeat sequence but still of fact ting the upper cervical spine. 2. 2 mm anterolisthesis at C3-C4 and C6-C7. 3. C4 through C6 fusion without evidence of hardware complication. 4. Patulous upper thoracic esophagus. EKG tachycardia w LBBB (not new) and PVCs ASSESSMENT: Ms. Fisher is a 74-year-old w a history of dementia, depression, TIA, dyslipidemia, HTN,small vessel ischemic dz and multiple abdominal surgeries, who was brought to the hospital for evaluation of encephalopathy. PLAN: Recurrent encephalopathy cannot r/o 2/2 to HTN Encephalopathy (SBP in the 190s in the ER) vs non-cirrhotic hyperammonemia (now normal) vs post ictal state - now resolved -Patient is now AAOx 3, great historian, HD stable, orthostatics neg -Neuro checks neg overnight. -Only 1 BM with improvement of ammonia- not sure if even related. -Liver US neg, stopping lactulose -Prolactin and Vit B1 pending, no seizure-like activity overnight -ER provider discussed the case with Dr. Vargas who recommended observation and seizure precautions -Treatment of individual issues below Uncontrolled HTN with ? encephalopathy -BP 140-160's since admission -Increased home dose amlodipine to 5 mg Po daily -Monitor Acute hypokalemia -K 3.2 -Supplemented 50 mEq Po today -Monitor with daily labs Acute hypomagnesemia -Mag on admission low 1.3 -Given magrun -Will recheck today along with phosphorous Chronic nausea / chronic diarrhea 2/2 to lactose intolerant, IBS -Per patient these two typically go hand in hand but not always -Nausea she is experiencing today is NOT new -Resume compazine BID PRN, stopping lactulose -Can f/u with PCP as o/p Chronic cramping of b/l lower ext poss 2/2 to electrolyte abnormalities above -Replace K and mag PRN -F/u Phos, mag levels today -May need to start standing supplementation Hx of ? coccidiomycosis -Per patient was diagnosed in [place], [place] before -Following with Dr. Dennis as o/p, had recent bronchoscopy? (cannot be confirmed until 10/06/20) this past week -Currently not SOB, denies coughing, chest pain, afebrile, not on antifungal meds Chronic deconditioning believed to be from chronic illness, r/o acute cause ab ove -This is why she is in assisted living, has been receiving services there per patient -F/u PT/OT suggestions TIA / Chronic small vessel ischemic disease -No new neuro changes, d/c neuro checks -C/w ASA & statin Hyperammonemia with hepatosteatosis -AST/ALT, hep panel, ammonia this AM wnl -Remote hx of alcohol abuse -F/u lipid panel -D/c lactulose with hx of chronic diarrhea -If ammonia increases again on 10/06/20, may want to run by GI Suspected fall -Unknown -PT/OT , has been getting PT/OT at [place] Dementia -AAOX3, great historian -C/w donepezil Depression -Stable -C/w venlafaxine DLP -C/w atorvastatin & fenofibrate DVT px: SCD Resolved issues: Tachycardia possibly due to hypomagnesemia and hypokalemia and or dehydration DISPOSITION: Currently resides at assisted living facility, PT/OT ordered for 10/06/20 to see if at baseline to return. Appears to be near baseline mental status. Plan is for her to return to [place] when medically cleared. VS, I&O, 24H, [place] Vital Signs/I&O Vital Signs Date Time Temp Pulse Resp B/P (MAP) Pulse Ox O2 Delivery O2 Flow Rate FiO2 10/05/20 09:23 91 145/75 10/05/20 06:00 97.5 18 100 Room Air I&O- Last 24 Hours up to 6 AM 10/05/20 06:00 Intake Total 770 ml Output Total 200 ml Balance 570 ml Laboratory Data 24H LABS Laboratory Tests 2 10/04/20 18:32: Immature Granulocyte % (Auto) 1.0, Neutrophils (%) (Auto) 70.1H, Lymphocytes (%) (Auto) 16.7L, Monocytes (%) (Auto) 10.4H, Eosinophils (%) (Auto) 1.4, Basophils (%) (Auto) 0.4, Neutrophils # (Auto) 7.8, Lymphocytes # (Auto) 1.9, Monocytes # (Auto) 1.2H, Eosinophils # (Auto) 0.2, Basophils # (Auto) 0.1, Nucleated Red Blood Cells % (auto) 0.0, Urine Color YELLOW, Urine Appearance CLEAR, Urine pH 7.0, Urine Specific [place] 1.018, Urine Protein 1+H, Urine Glucose (UA) 1+H, Urine Ketones NEGATIVE, Urine Blood NEGATIVE, Urine Nitrite NEGATIVE, Urine Bilirubin NEGATIVE, Urine Urobilinogen 0.2, Urine Leukocyte Esterase NEGATIVE, Urine WBC (Auto) 1, Urine RBC (Auto) 2, Urine Hyaline Casts (Auto) 0, Urine Bacteria (Auto) NEGATIVE, Urine Squamous Epithelial Cells 0, Urine Amorphous Sediment SMALLH, Urine Mucus (Auto) SMALL, Urine Sperm (Auto) , Anion Gap 9, Glomerular Filtration Rate > 60.0, Calcium Level 9.5, Magnesium Level 1.3L, Total Bilirubin 0.3, Direct Bilirubin < 0.1, Aspartate Amino Transf (AST/SGOT) 28, Alanine Aminotransferase (ALT/SGPT) 27, Alkaline Phosphatase 65, Total Creatine Kinase 132, Creatine Kinase MB < 1.0, Creatine Kinase MB Relative Index 0.76, Troponin I 0.03, Total Protein 7.4, Albumin 3.8, Albumin/Globulin Ratio 1.1L, Thyroid Stimulating Hormone (TSH) 2.370, Salicylates Level < 1.7L, Urine Opiates Screen NEGATIVE, Urine Methadone Screen NEGATIVE, Acetaminophen Level 3.0L, Urine Barbiturates Screen NEGATIVE, Urine Phencyclidine Screen NEGATIVE, Urine Amphetamines Screen NEGATIVE, Urine Benzodiazepines Screen POSITIVEH, Urine Cocaine Metabolite Screen NEGATIVE, Urine Cannabinoids Screen NEGATIVE, Ethyl Alcohol Level < 0.003 10/04/20 19:47: Ammonia 38H, Coronavirus (COVID-19)(PCR) NEGATIVE, Influenza Type A (RT-PCR) NEGATIVE, Influenza Type B (RT-PCR) NEGATIVE, Respiratory Syncytial Virus (PCR) NEGATIVE 10/05/20 06:12: Nucleated Red Blood Cells % (auto) 0.0, Anion Gap 8, Glomerular Filtration Rate > 60.0, Calcium Level 8.8, Prothrombin Time 13.3, Prothromb Time International Ratio 0.99, Activated Partial Thromboplast Time 28.3 10/05/20 08:07: Ammonia 23 CBC/BMP Laboratory Tests 10/04/20 18:32 10/05/20 06:12 Celia Steen MD Oct 05, 2020 12:42
[2020-10-05] MEDS: PROCHLORPERAZINE 5 MG TAB (S0183) PO PRN (12:53)
[2020-10-05 14:00] VITALS: BP 145/65
[2020-10-05] MEDS: oxyBUTYnin *DITROPAN XL* 5 MG TABCR PO SCH (20:41)
[2020-10-05 22:00] VITALS: BP 157/65
[2020-10-06] MEDS: ACETAMINOPHEN TAB 650MG DOSE (2X325MG) PO PRN ×2 (04:26→14:13)
[2020-10-06 05:50] LABS: HEMATOCRIT 37.9 % (36.0-47.0); HEMOGLOBIN 12.3 g/dl (12.0-15.5); MEAN CORPUSCULAR HEMOGLOBIN 32.7 pg (27.0-33.0); MEAN CORPUSCULAR HGB CONC 32.5 g/dl (32.0-36.5); MEAN CORPUSCULAR VOLUME 100.8 fl (80.0-96.0); PLATELET COUNT, AUTOMATED 288 10^3/uL (150-450); RED BLOOD COUNT 3.76 10^6/uL (4.00-5.40)
[2020-10-06 06:00] VITALS: BP 146/73
[2020-10-06 06:21] LABS: ALBUMIN 3.6 GM/DL (3.2-5.2); ALT/SGPT 20 U/L (12-78); BILIRUBIN,TOTAL 0.8 MG/DL (0.2-1.0); BLOOD UREA NITROGEN 17 MG/DL (7-18); CALCIUM LEVEL 9.2 MG/DL (8.8-10.2); CARBON DIOXIDE LEVEL 26 MEQ/L (21-32); CHLORIDE LEVEL 101 MEQ/L (98-107); CREATININE FOR GFR 0.44 MG/DL (0.55-1.30); GLOMERULAR FILTRATION RATE > 60.0 (>39); GLUCOSE, FASTING 95 MG/DL (70-100); POTASSIUM SERUM 3.5 MEQ/L (3.5-5.1); SODIUM LEVEL 135 MEQ/L (136-145); TOTAL PROTEIN 6.8 GM/DL (6.4-8.2)
[2020-10-06 06:53] LABS: PROLACTIN 29.6 NG/ML
[2020-10-06] MEDS: OMEPRAZOLE 20 MG CAP PO SCH (09:49)
[2020-10-06] MEDS: ASPIRIN 81 MG CHEW TABLET PO SCH (09:50)
[2020-10-06] MEDS: ENOXAPARIN 40MG/0.4ML SYRINGE (J1650 PER 10MG) SC SCH (09:50)
[2020-10-06] MEDS: VENLAFAXINE **XR** 75MG CAPSULE PO SCH ×2 (09:50→18:38)
[2020-10-06] MEDS: FENOFIBRATE 145 MG TAB (TRICOR) PO SCH (09:50)
[2020-10-06] MEDS: CYANOCOBALAMIN 1,000MCG/ML VIAL (J3420) IM SCH (09:50)
--- NOTE | 2020-10-06 15:30 | IPNPDOC ---
Date Seen The patient was seen on 10/06/20. Progress Note SUBJECTIVE: Was going to discharge this AM but nursing reports restlessness this AM, slightly more confused , unable to redirect. Needed sitter due to not staying in bed. Ammonia wnl, afebrile, infectious w/u neg thus far aside from lung issues which are chronic and being w/u as o/p. Did not sleep last evening due to not having night med- likely cause of increased confusion and restlessness. Restarted home med. Hoping for discharge back 10/07/20 to assisted living. She denies incr SOB, fevers, chills, chest pain. OBJECTIVE: PHYSICAL EXAMINATION: Vital Signs: Pleas see below GENERAL APPEARANCE: NAD, resting in bed, AAOx 3 HEENT: EOMI / MMM & pink CARDIOVASCULAR: sinus tachycardia / NMRG LUNGS: CTAB on RA ABDOMEN: flat / soft & NT / no organomegaly MUSCULOSKELETAL: NCAT / LENY x 4 INTEGUMENT: not flushed, bruised or diaphoretic NEUROLOGICAL: speech not dysarthric PSYCHIATRIC: mood and affect appropriate, cooperative and answering questions appropriately for me LABORATORY: Please see below MICROBIOLOGY: Respiratory panel: neg IMAGING: Liver US: Hepatosteatosis CXR: Persistent opacity in the right lower lung zone consistent with previously noted right middle lobe collapse and likely associated right lower lobe atelectasis and pleural effusion. CT head w/o contrast : 1. No intracranial hemorrhage or evidence of large acute infarct. 2. Atherosclerosis, cerebral volume loss, and small vessel ischemic disease. CT cervical spine w/o contrast: 1. No definite acute fracture. Study limited by motion artifact, significantly improved on repeat sequence but still of fact ting the upper cervical spine. 2. 2 mm anterolisthesis at C3-C4 and C6-C7. 3. C4 through C6 fusion without evidence of hardware complication. 4. Patulous upper thoracic esophagus. EKG tachycardia w LBBB (not new) and PVCs ASSESSMENT: Ms. Fisher is a 74-year-old w a history of dementia, depression, TIA, dyslipidemia, HTN,small vessel ischemic dz and multiple abdominal surgeries, who was brought to the hospital for evaluation of encephalopathy. PLAN: Recurrent encephalopathy cannot r/o 2/2 to HTN Encephalopathy (SBP in the 190s in the ER) vs non-cirrhotic hyperammonemia (now normal) vs post ictal state - Resolved -Patient is now AAOx 3, pola historian, HD stable, orthostatics neg -Liver US neg, stopped lactulose (received only several doses) -Prolactin very minimally elevated, Vit B1 pending, no seizure-like activity recorded here -ER provider discussed the case with Dr. Vargas who recommended observation and seizure precautions -Treatment of individual issues below Uncontrolled HTN with ? encephalopathy -BP 140-160's since admission -C/w amlodipine to 5 mg Po daily (incr from home dose) -Monitor Acute hypokalemia- resolved -K wnl this AM -Monitor with daily labs Acute hypomagnesemia -Last level wnl -Will recheck 10/07/20 to see if needs supplement on d/c Chronic nausea / chronic diarrhea 2/2 to lactose intolerant, IBS -Per patient these two typically go hand in hand but not always -Nausea she is experiencing is NOT new, not increased from baseline -C/w compazine BID PRN -Can f/u with PCP as o/p Chronic cramping of b/l lower ext poss 2/2 to electrolyte abnormalities above- improved -Replace K and mag PRN -F/u mag levels today -May need to start standing supplementation Hx of ? coccidiomycosis -Saturating well on RA, no SOB, denies coughing, chest pain, afebrile, not on antifungal meds -Abnormal CXR above -Per patient was diagnosed in [place], [place] before -Following with Dr. Dennis as o/p, had recent bronchoscopy? (cannot be confirmed until 10/06/20) this past week Chronic deconditioning believed to be from chronic illness, r/o acute cause above -This is why she is in assisted living, has been receiving services there per patient -F/u PT/OT suggestions TIA / Chronic small vessel ischemic disease -No new neuro changes, d/c neuro checks -C/w ASA & statin Hyperammonemia with hepatosteatosis -AST/ALT, hep panel, ammonia this AM wnl -Remote hx of alcohol abuse, no hx of prior liver issues -Liver US neg -D/c lactulose with hx of chronic diarrhea Suspected fall -Unknown -PT/OT , has been getting PT/OT at [place] Dementia -AAOX3, pola historian at baseline despite this -C/w donepezil Depression -Stable -C/w venlafaxine DLP -C/w atorvastatin & fenofibrate DVT px: SCD Resolved issues: Tachycardia possibly due to hypomagnesemia and hypokalemia and or dehydration DISPOSITION: Currently resides at assisted living facility, PT/OT f/u recommendations. If all ok by PT and no issues overnight, can d/c back to [place] on 10/07/20. VS, I&O, 24H, Fishbone Vital Signs/I&O Vital Signs Date Time Temp Pulse Resp B/P (MAP) Pulse Ox O2 Delivery O2 Flow Rate FiO2 10/06/20 09:49 104 146/73 10/06/20 06:00 98.1 18 97 Room Air I&O- Last 24 Hours up to 6 AM 10/06/20 06:00 Intake Total 950 ml Output Total 1100 ml Balance -150 ml Laboratory Data 24H LABS Laboratory Tests 2 10/06/20 05:32: Nucleated Red Blood Cells % (auto) 0.0, Anion Gap 8, Glomerular Filtration Rate > 60.0, Calcium Level 9.2, Total Bilirubin 0.8#, Aspartate Amino Transf (AST/SGOT) 16, Alanine Aminotransferase (ALT/SGPT) 20, Alkaline Phosphatase 53, Ammonia 20, Total Protein 6.8, Albumin 3.6, Albumin/Globulin Ratio 1.1L CBC/BMP Laboratory Tests 10/06/20 05:32 Celia Steen MD Oct 06, 2020 15:30
[2020-10-06] MEDS: ATORVASTATIN 20 MG TAB PO SCH (20:05)
[2020-10-06] MEDS: DONEPEZIL 5 MG TAB PO SCH (20:05)
[2020-10-06] MEDS: oxyBUTYnin *DITROPAN XL* 5 MG TABCR PO SCH (20:05)
[2020-10-06] MEDS: RAMELTEON 8 MG TAB (ROZEREM) PO PRN ×2 (20:05→21:47)
[2020-10-06 22:00] VITALS: BP 149/80
[2020-10-07] MEDS: ACETAMINOPHEN TAB 650MG DOSE (2X325MG) PO PRN ×3 (00:07→21:06)
[2020-10-07 06:00] VITALS: BP 153/67
[2020-10-07 06:03] LABS: HEMATOCRIT 37.4 % (36.0-47.0); HEMOGLOBIN 12.5 g/dl (12.0-15.5); MEAN CORPUSCULAR HEMOGLOBIN 33.1 pg (27.0-33.0); MEAN CORPUSCULAR HGB CONC 33.4 g/dl (32.0-36.5); MEAN CORPUSCULAR VOLUME 98.9 fl (80.0-96.0); PLATELET COUNT, AUTOMATED 301 10^3/uL (150-450); RED BLOOD COUNT 3.78 10^6/uL (4.00-5.40)
[2020-10-07 06:40] LABS: ALBUMIN 3.1 GM/DL (3.2-5.2); ALT/SGPT 21 U/L (12-78); BILIRUBIN,TOTAL 0.3 MG/DL (0.2-1.0); BLOOD UREA NITROGEN 15 MG/DL (7-18); CALCIUM LEVEL 8.8 MG/DL (8.8-10.2); CARBON DIOXIDE LEVEL 27 MEQ/L (21-32); CHLORIDE LEVEL 105 MEQ/L (98-107); CREATININE FOR GFR 0.45 MG/DL (0.55-1.30); GLOMERULAR FILTRATION RATE > 60.0 (>39); GLUCOSE, FASTING 109 MG/DL (70-100); POTASSIUM SERUM 2.9 MEQ/L (3.5-5.1); SODIUM LEVEL 140 MEQ/L (136-145); TOTAL PROTEIN 7.1 GM/DL (6.4-8.2)
[2020-10-07] MEDS: POTASSIUM CHLORIDE 10 MEQ SR TABLET PO SCH ×3 (07:04→13:00)
[2020-10-07 07:32] LABS: MAGNESIUM LEVEL 1.7 MG/DL (1.8-2.4)
[2020-10-07] MEDS: ENOXAPARIN 40MG/0.4ML SYRINGE (J1650 PER 10MG) SC SCH (10:20)
[2020-10-07] MEDS: CYANOCOBALAMIN 1,000MCG/ML VIAL (J3420) IM SCH (10:20)
[2020-10-07] MEDS: FENOFIBRATE 145 MG TAB (TRICOR) PO SCH (10:21)
[2020-10-07] MEDS: VENLAFAXINE **XR** 75MG CAPSULE PO SCH ×2 (10:21→18:13)
[2020-10-07] MEDS: ASPIRIN 81 MG CHEW TABLET PO SCH (10:21)
[2020-10-07] MEDS: OMEPRAZOLE 20 MG CAP PO SCH (10:21)
--- NOTE | 2020-10-07 13:50 | IPNPDOC ---
Text Note Date of Service The patient was seen on 10/07/20. NOTE SUBJECTIVE: -Was going to be discharged back [place] [facility] yesterday but had some restlessness and agitation on 10/06 and this morning there is a report of ambivalence to work with PT for proper evaluation for clearance back to [place]. Nursing also reporting some confusion. Plan now is to dc tomorrow if stable to [facility] -Otherwise denies incr SOB, fevers, chills, chest pain. OBJECTIVE: Vital Signs: Pleas see below GENERAL APPEARANCE: NAD, resting in bed, AAOx 3 HEENT: EOMI, MMM CARDIOVASCULAR: RRR, no m/r/g LUNGS: CTAB on RA ABDOMEN: Normoactive sounds, soft, NTND SKIN: not flushed, bruised or diaphoretic, no rashes NEUROLOGICAL: speech not dysarthric, grossly nonfocal examination PSYCHIATRIC: mood and affect appropriate, cooperative and answering questions appropriately this morning. LABORATORY: Reviewed K 2.9 (repleted) MICROBIOLOGY: Respiratory panel: neg IMAGING: Liver US: Hepatosteatosis CXR: Persistent opacity in the right lower lung zone consistent with previously noted right middle lobe collapse and likely associated right lower lobe atelectasis and pleural effusion. CT head w/o contrast : 1. No intracranial hemorrhage or evidence of large acute infarct. 2. Atherosclerosis, cerebral volume loss, and small vessel ischemic disease. CT cervical spine w/o contrast: 1. No definite acute fracture. Study limited by motion artifact, significantly improved on repeat sequence but still of fact ting the upper cervical spine. 2. 2 mm anterolisthesis at C3-C4 and C6-C7. 3. C4 through C6 fusion without evidence of hardware complication. 4. Patulous upper thoracic esophagus. EKG tachycardia w LBBB (not new) and PVCs ASSESSMENT: Ms. Fisher is a 74-year-old w a history of dementia, depression, TIA, dyslipidemia, HTN,small vessel ischemic dz and multiple abdominal surgeries, who was brought to the hospital for evaluation of encephalopathy. PLAN: Metabolic encephalopathy cannot r/o 2/2 to HTN Encephalopathy (SBP in the 190s in the ER) vs hyperammonemia (now normal) vs post ictal state: Resolved -Patient is now AAOx 3 -Liver US neg for cirrhosis -Prolactin very minimally elevated, Vit B1 pending, no seizure-like activity recorded here, EEG negative -BP well controlled now Uncontrolled HTN with encephalopathy -BP 140-160's since admission -amlodipine 5 mg Po daily -Monitor Acute hypokalemia: -replete PRN -Monitor with daily labs Acute hypomagnesemia -replete PRN Chronic nausea / chronic diarrhea 2/2 to lactose intolerant, IBS -Per patient these two typically go hand in hand but not always -Nausea she is experiencing is NOT new, not increased from baseline -C/w compazine BID PRN -Can f/u with PCP as o/p Chronic cramping of b/l lower ext poss 2/2 to electrolyte abnormalities above- improved -Replace K and mag PRN -May need to start standing supplementation Hx of ? coccidiomycosis -Saturating well on RA, no SOB, denies coughing, chest pain, afebrile, not on antifungal meds -Abnormal CXR above -Per patient was diagnosed in [place], [place] before -Following with Dr. Dennis as o/p, had recent bronchoscopy? Chronic deconditioning believed to be from chronic illness, r/o acute cause above -This is why she was in assisted living, has been receiving services there per patient -F/u PT/OT suggestions Chronic small vessel ischemic disease -No new neuro changes, d/c neuro checks -C/w ASA & statin Hyperammonemia with hepatosteatosis -AST/ALT, hep panel, ammonia now wnl -Remote hx of alcohol abuse, no hx of prior liver issues -Liver US neg Suspected fall -Unknown -PT/OT , had been getting PT/OT at [place] Dementia -AAOX3, great historian at baseline despite this -C/w donepezil Depression -Stable -C/w venlafaxine DLP -C/w atorvastatin & fenofibrate DVT px: SCD DISPOSITION: Recently resided at assisted living facility, PT/OT f/u recommendations. Plan for [facility] tomorrow [facility], I+O [facility], I+O Laboratory Tests 10/07/20 05:24 Vital Signs Date Time Temp Pulse Resp B/P (MAP) Pulse Ox O2 Delivery O2 Flow Rate FiO2 10/07/20 06:00 97.0 85 17 153/67 (95) 95 Room Air I&O- Last 24 Hours up to 6 AM 10/07/20 06:00 Intake Total 1790 ml Output Total 300 ml Balance 1490 ml CHELY WOODRUFF MD Oct 07, 2020 10:17
[2020-10-07 14:00] VITALS: BP 161/70
[2020-10-07 18:43] VITALS: BP 150/62
[2020-10-07 20:00] VITALS: BP 154/68
[2020-10-07] MEDS ORDERED: hydrOXYzine 25 MG TAB PO ONE (20:00)
[2020-10-07] MEDS: RAMELTEON 8 MG TAB (ROZEREM) PO PRN (21:05)
[2020-10-07] MEDS: ATORVASTATIN 20 MG TAB PO SCH (21:05)
[2020-10-07] MEDS: DONEPEZIL 5 MG TAB PO SCH (21:06)
[2020-10-07] MEDS: oxyBUTYnin *DITROPAN XL* 5 MG TABCR PO SCH (21:06)
[2020-10-08 06:00] VITALS: BP 152/70
[2020-10-08] MEDS: ACETAMINOPHEN TAB 650MG DOSE (2X325MG) PO PRN ×2 (06:01→14:59)
[2020-10-08] MEDS: CYANOCOBALAMIN 1,000MCG/ML VIAL (J3420) IM SCH (09:22)
[2020-10-08] MEDS: amLODIPine 5 MG TAB PO SCH (09:22)
[2020-10-08] MEDS: ENOXAPARIN 40MG/0.4ML SYRINGE (J1650 PER 10MG) SC SCH (09:22)
[2020-10-08] MEDS: OMEPRAZOLE 20 MG CAP PO SCH (09:22)
[2020-10-08] MEDS: ASPIRIN 81 MG CHEW TABLET PO SCH (09:23)
[2020-10-08] MEDS: FENOFIBRATE 145 MG TAB (TRICOR) PO SCH (09:23)
[2020-10-08] MEDS: VENLAFAXINE **XR** 75MG CAPSULE PO SCH ×2 (09:23→17:11)
[2020-10-08] MEDS ORDERED: ALBUTEROL 90 MCG/ACT 8GM HFA INHALER INH PRN (09:30)
[2020-10-08] MEDS ORDERED: diphenhydrAMINE 50MG/ML VIAL (J1200) IV PRN (09:30)
[2020-10-08] MEDS: NS 1,000 ML IV SCH (09:30)
[2020-10-08] MEDS ORDERED: methylPREDNISolone 125MG 2ML VIAL IV PRN (09:30)
[2020-10-08] MEDS ORDERED: ALBUTEROL SULFATE 2.5 MG/0.5 ML INH NEB SOLN INH PRN (09:30)
[2020-10-08] MEDS ORDERED: EPINEPHrine INJ 1 MG/ML 1ML AMP IM PRN (09:30)
[2020-10-08 10:23] LABS: HEMATOCRIT 37.8 % (36.0-47.0); HEMOGLOBIN 12.3 g/dl (12.0-15.5); MEAN CORPUSCULAR HEMOGLOBIN 32.5 pg (27.0-33.0); MEAN CORPUSCULAR HGB CONC 32.5 g/dl (32.0-36.5); PLATELET COUNT, AUTOMATED 286 10^3/uL (150-450); RED BLOOD COUNT 3.78 10^6/uL (4.00-5.40); WHITE BLOOD COUNT 6.3 10^3/uL (4.0-10.0)
[2020-10-08 10:34] LABS: INR 0.98; PARTIAL THROMBOPLASTIN TIME 36.9 SECONDS (24.2-38.5); PROTHROMBIN TIME 13.1 SECONDS (12.5-14.3)
[2020-10-08 10:37] LABS: D-DIMER QUANT 870.38 ng/ml (<500)
[2020-10-08 10:54] LABS: ALBUMIN 3.3 GM/DL (3.2-5.2); ALT/SGPT 25 U/L (12-78); BILIRUBIN,DIRECT < 0.1 MG/DL (0.0-0.2); BILIRUBIN,TOTAL 0.3 MG/DL (0.2-1.0); BLOOD UREA NITROGEN 11 MG/DL (7-18); CALCIUM LEVEL 9.1 MG/DL (8.8-10.2); CARBON DIOXIDE LEVEL 28 MEQ/L (21-32); CHLORIDE LEVEL 104 MEQ/L (98-107); CREATININE FOR GFR 0.49 MG/DL (0.55-1.30); FERRITIN 348 NG/ML (8-252); GLOMERULAR FILTRATION RATE > 60.0 (>39); GLUCOSE, FASTING 154 MG/DL (70-100); LDH LACTATE DEHYDROGENASE 160 U/L (84-246); POTASSIUM SERUM 3.6 MEQ/L (3.5-5.1); SODIUM LEVEL 138 MEQ/L (136-145)
[2020-10-08] MEDS ORDERED: BAMLANIVIMAB 700 MG, ETESEVIMAB 1,400 MG in NS 250 ML IV ONE (12:00)
[2020-10-08 12:34] VITALS: BP 146/65
--- NOTE | 2020-10-08 12:58 | IPNPDOC ---
Text Note Date of Service The patient was seen on 10/08/20. NOTE SUBJECTIVE: -Was going to be discharged to [facility] rehab but was found to be covid-19 positive. -Otherwise denies incr SOB, fevers, chills, chest pain. OBJECTIVE: Vital Signs: Pleas see below GENERAL APPEARANCE: NAD, resting in bed, AAOx 3 HEENT: EOMI, MMM CARDIOVASCULAR: RRR, no m/r/g LUNGS: CTAB on RA ABDOMEN: Normoactive sounds, soft, NTND SKIN: not flushed, bruised or diaphoretic, no rashes NEUROLOGICAL: speech not dysarthric, grossly nonfocal examination PSYCHIATRIC: mood and affect appropriate, cooperative and answering questions appropriately this morning. LABORATORY: Reviewed MICROBIOLOGY: Respiratory panel: neg IMAGING: Liver US: Hepatosteatosis CXR: Persistent opacity in the right lower lung zone consistent with previously noted right middle lobe collapse and likely associated right lower lobe atelectasis and pleural effusion. CT head w/o contrast : 1. No intracranial hemorrhage or evidence of large acute infarct. 2. Atherosclerosis, cerebral volume loss, and small vessel ischemic disease. CT cervical spine w/o contrast: 1. No definite acute fracture. Study limited by motion artifact, significantly improved on repeat sequence but still of fact ting the upper cervical spine. 2. 2 mm anterolisthesis at C3-C4 and C6-C7. 3. C4 through C6 fusion without evidence of hardware complication. 4. Patulous upper thoracic esophagus. EKG tachycardia w LBBB (not new) and PVCs ASSESSMENT: Ms. Fisher is a 74-year-old w a history of dementia, depression, TIA, dyslipidemia, HTN,small vessel ischemic dz and multiple abdominal surgeries, who was brought to the hospital for evaluation of encephalopathy. PLAN: Covid-19 infection: asymptomatic at this time -will start empiric antibody treatment with bamlanivimab and etesevimab -CBC,BMP, Ddimer, ferritin, LDH, INR, PTT, procal, LFTs -daily CBC and BMP -droplet isolation -lovenox 40 QD for DVT ppx Metabolic encephalopathy cannot r/o 2/2 to HTN Encephalopathy (SBP in the 190s in the ER) vs hyperammonemia (now normal) vs post ictal state: Resolved -Patient is now AAOx 3 -Liver US neg for cirrhosis -Prolactin very minimally elevated, Vit B1 pending, no seizure-like activity recorded here, EEG negative -BP well controlled now Uncontrolled HTN with encephalopathy: resolved -BP 140-160's since admission -amlodipine 5 mg Po daily -Monitor Acute hypokalemia: resolved -replete PRN -Monitor with daily labs Acute hypomagnesemia: resolved -replete PRN Chronic nausea / chronic diarrhea 2/2 to lactose intolerant, IBS -Per patient these two typically go hand in hand but not always -Nausea she is experiencing is NOT new, not increased from baseline -C/w compazine BID PRN -Can f/u with PCP as o/p Chronic cramping of b/l lower ext poss 2/2 to electrolyte abnormalities above- improved -Replace K and mag PRN -May need to start standing supplementation Hx of ? coccidiomycosis -Saturating well on RA, no SOB, denies coughing, chest pain, afebrile, not on antifungal meds -Abnormal CXR above -Per patient was diagnosed in [place], [place] before -Following with Dr. Dennis as o/p, had recent bronchoscopy? Chronic deconditioning believed to be from chronic illness, r/o acute cause above -This is why she was in assisted living, has been receiving services there per patient -F/u PT/OT suggestions Chronic small vessel ischemic disease -No new neuro changes, d/c neuro checks -C/w ASA & statin Hyperammonemia with hepatosteatosis -AST/ALT, hep panel, ammonia now wnl -Remote hx of alcohol abuse, no hx of prior liver issues -Liver US neg Suspected fall -Unknown -PT/OT , had been getting PT/OT at [place] Dementia -AAOX3, great historian at baseline despite this -C/w donepezil Depression -Stable -C/w venlafaxine DLP -C/w atorvastatin & fenofibrate DVT px: Enoxaparin 40 QD DISPOSITION: Recently resided at assisted living facility, PT/OT f/u recommendations. VS,Fishbone, I+O VS, Fishbone, I+O Vital Signs Date Time Temp Pulse Resp B/P (MAP) Pulse Ox O2 Delivery O2 Flow Rate FiO2 10/08/20 09:22 87 152/70 10/08/20 06:00 98.4 16 97 Room Air I&O- Last 24 Hours up to 6 AM 10/08/20 05:59 Intake Total 1320 ml Output Total 600 ml Balance 720 ml CHELY WOODRUFF MD Oct 08, 2020 09:44
[2020-10-08 13:25] VITALS: BP 152/66
[2020-10-08 13:58] VITALS: BP 126/58
[2020-10-08 14:00] VITALS: BP 126/58
[2020-10-08] MEDS: PROCHLORPERAZINE 5 MG TAB (S0183) PO PRN (16:01)
[2020-10-08] MEDS: ONDANSETRON 4MG/2ML VIAL IV PRN (18:06)
[2020-10-08] MEDS: DONEPEZIL 5 MG TAB PO SCH (20:04)
[2020-10-08] MEDS: CEPACOL LOZENGE PO PRN ×2 (20:04→21:58)
[2020-10-08] MEDS: oxyBUTYnin *DITROPAN XL* 5 MG TABCR PO SCH (20:05)
[2020-10-08] MEDS: ATORVASTATIN 20 MG TAB PO SCH (20:05)
[2020-10-08] MEDS: RAMELTEON 8 MG TAB (ROZEREM) PO PRN (21:57)
[2020-10-08 22:00] VITALS: BP 109/53
[2020-10-09] MEDS: ACETAMINOPHEN TAB 650MG DOSE (2X325MG) PO PRN ×2 (00:15→16:20)
[2020-10-09 06:00] VITALS: BP 109/53
[2020-10-09 07:39] LABS: HEMATOCRIT 35.5 % (36.0-47.0); HEMOGLOBIN 11.8 g/dl (12.0-15.5); MEAN CORPUSCULAR HEMOGLOBIN 33.4 pg (27.0-33.0); MEAN CORPUSCULAR HGB CONC 33.2 g/dl (32.0-36.5); MEAN CORPUSCULAR VOLUME 100.6 fl (80.0-96.0); PLATELET COUNT, AUTOMATED 289 10^3/uL (150-450); RED BLOOD COUNT 3.53 10^6/uL (4.00-5.40); WHITE BLOOD COUNT 5.7 10^3/uL (4.0-10.0)
[2020-10-09 07:59] LABS: BLOOD UREA NITROGEN 10 MG/DL (7-18); CALCIUM LEVEL 8.7 MG/DL (8.8-10.2); CARBON DIOXIDE LEVEL 28 MEQ/L (21-32); CHLORIDE LEVEL 104 MEQ/L (98-107); CREATININE FOR GFR 0.47 MG/DL (0.55-1.30); GLOMERULAR FILTRATION RATE > 60.0 (>39); GLUCOSE, FASTING 101 MG/DL (70-100); POTASSIUM SERUM 3.4 MEQ/L (3.5-5.1); SODIUM LEVEL 139 MEQ/L (136-145)
[2020-10-09] MEDS: NS 1,000 ML IV SCH (09:30)
[2020-10-09] MEDS ORDERED: POTASSIUM CHLORIDE 10 MEQ SR TABLET PO ONE (09:45)
[2020-10-09] MEDS: OMEPRAZOLE 20 MG CAP PO SCH (09:50)
[2020-10-09] MEDS: FENOFIBRATE 145 MG TAB (TRICOR) PO SCH (09:51)
[2020-10-09] MEDS: ASPIRIN 81 MG CHEW TABLET PO SCH (09:51)
[2020-10-09] MEDS: VENLAFAXINE **XR** 75MG CAPSULE PO SCH ×2 (09:51→19:02)
[2020-10-09] MEDS: CYANOCOBALAMIN 1,000MCG/ML VIAL (J3420) IM SCH (09:52)
[2020-10-09 09:53] LABS: MAGNESIUM LEVEL 1.3 MG/DL (1.8-2.4)
[2020-10-09] MEDS: ENOXAPARIN 40MG/0.4ML SYRINGE (J1650 PER 10MG) SC SCH (09:53)
[2020-10-09] MEDS: BENZONATATE 100 MG CAP PO SCH ×3 (09:54→21:51)
[2020-10-09] MEDS: amLODIPine 5 MG TAB PO SCH (09:59)
--- NOTE | 2020-10-09 13:34 | IPNPDOC ---
Text Note Date of Service The patient was seen on 10/09/20. NOTE SUBJECTIVE: -Has a dry cough now, otherwise denies incr SOB, fevers, chills, chest pain. OBJECTIVE: Vital Signs: Pleas see below GENERAL APPEARANCE: NAD, resting in bed, AAOx 3 HEENT: EOMI, MMM CARDIOVASCULAR: RRR, no m/r/g LUNGS: CTAB on RA ABDOMEN: Normoactive sounds, soft, NTND SKIN: not flushed, bruised or diaphoretic, no rashes NEUROLOGICAL: speech not dysarthric, grossly nonfocal examination PSYCHIATRIC: mood and affect appropriate, cooperative and answering questions appropriately this morning. LABORATORY: Reviewed WBC 5.7 Hgb 11.8 platelets 289 na 139 K 3.4 Cr 0.47 MICROBIOLOGY: Respiratory panel: neg IMAGING: Liver US: Hepatosteatosis CXR: Persistent opacity in the right lower lung zone consistent with previously noted right middle lobe collapse and likely associated right lower lobe atelectasis and pleural effusion. CT head w/o contrast : 1. No intracranial hemorrhage or evidence of large acute infarct. 2. Atherosclerosis, cerebral volume loss, and small vessel ischemic disease. CT cervical spine w/o contrast: 1. No definite acute fracture. Study limited by motion artifact, significantly improved on repeat sequence but still of fact ting the upper cervical spine. 2. 2 mm anterolisthesis at C3-C4 and C6-C7. 3. C4 through C6 fusion without evidence of hardware complication. 4. Patulous upper thoracic esophagus. EKG tachycardia w LBBB (not new) and PVCs ASSESSMENT: Ms. Fisher is a 74-year-old w a history of dementia, depression, TIA, dyslipidemia, HTN,small vessel ischemic dz and multiple abdominal surgeries, who was brought to the hospital for evaluation of encephalopathy. PLAN: Covid-19 infection: asymptomatic at this time -s/p empiric antibody treatment with bamlanivimab and etesevimab -CBC,BMP, Ddimer, ferritin, LDH, INR, PTT, procal, LFTs -daily CBC and BMP -droplet isolation -lovenox 40 QD for DVT ppx Metabolic encephalopathy cannot r/o 2/2 to HTN Encephalopathy (SBP in the 190s in the ER) vs hyperammonemia (now normal) vs post ictal state: Resolved -Patient is now AAOx 3 -Liver US neg for cirrhosis -Prolactin very minimally elevated, Vit B1 pending, no seizure-like activity recorded here, EEG negative -BP well controlled now Uncontrolled HTN with encephalopathy: resolved -BP 140-160's since admission -amlodipine 5 mg Po daily -Monitor Acute hypokalemia: resolved -replete PRN -Monitor with daily labs Acute hypomagnesemia: resolved -replete PRN Chronic nausea / chronic diarrhea 2/2 to lactose intolerant, IBS -Per patient these two typically go hand in hand but not always -Nausea she is experiencing is NOT new, not increased from baseline -C/w compazine BID PRN -Can f/u with PCP as o/p Chronic cramping of b/l lower ext poss 2/2 to electrolyte abnormalities above- improved -Replace K and mag PRN -May need to start standing supplementation 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 Dennis as o/p, had recent bronchoscopy? Chronic deconditioning believed to be from chronic illness, r/o acute cause above -This is why she was in assisted living, has been receiving services there per patient -F/u PT/OT suggestions Chronic small vessel ischemic disease -No new neuro changes, d/c neuro checks -C/w ASA & statin Hyperammonemia with hepatosteatosis -AST/ALT, hep panel, ammonia now wnl -Remote hx of alcohol abuse, no hx of prior liver issues -Liver US neg Suspected fall -Unknown -PT/OT , had been getting PT/OT at [facility] Dementia -AAOX3, great historian at baseline despite this -C/w donepezil Depression -Stable -C/w venlafaxine DLP -C/w atorvastatin & fenofibrate DVT px: Enoxaparin 40 QD DISPOSITION: Recently resided at assisted living facility, PT/OT f/u recommendations. VS,Mitchel, I+O VS, [place], I+O Laboratory Tests 10/08/20 10:00 10/09/20 07:25 Vital Signs Date Time Temp Pulse Resp B/P (MAP) Pulse Ox O2 Delivery O2 Flow Rate FiO2 10/09/20 06:00 99.2 90 18 109/53 (71) 93 Room Air I&O- Last 24 Hours up to 6 AM 10/09/20 05:59 Intake Total 260 ml Balance 260 ml CHELY WOODRUFF MD Oct 09, 2020 09:44
[2020-10-09 21:20] LABS: CLOSTRIDIUM DIFFICILE PCR NEGATIVE (NEGATIVE)
[2020-10-09] MEDS: DONEPEZIL 5 MG TAB PO SCH (21:50)
[2020-10-09] MEDS: oxyBUTYnin *DITROPAN XL* 5 MG TABCR PO SCH (21:51)
[2020-10-09] MEDS: ATORVASTATIN 20 MG TAB PO SCH (21:51)
[2020-10-09] MEDS: RAMELTEON 8 MG TAB (ROZEREM) PO PRN (21:51)
[2020-10-09 22:00] VITALS: BP 128/66
[2020-10-09] MEDS ORDERED: LOPERAMIDE 2 MG CAPLET PO PRN (23:15)
[2020-10-09] MEDS ORDERED: LOPERAMIDE 2 MG CAPLET PO ONE (23:15)
[2020-10-10] MEDS: ACETAMINOPHEN TAB 650MG DOSE (2X325MG) PO PRN ×3 (02:34→22:56)
[2020-10-10 06:00] VITALS: BP 131/62
[2020-10-10 09:49] LABS: HEMATOCRIT 38.5 % (36.0-47.0); HEMOGLOBIN 12.3 g/dl (12.0-15.5); MEAN CORPUSCULAR HEMOGLOBIN 32.5 pg (27.0-33.0); MEAN CORPUSCULAR HGB CONC 31.9 g/dl (32.0-36.5); MEAN CORPUSCULAR VOLUME 101.6 fl (80.0-96.0); PLATELET COUNT, AUTOMATED 291 10^3/uL (150-450); RED BLOOD COUNT 3.79 10^6/uL (4.00-5.40); WHITE BLOOD COUNT 4.3 10^3/uL (4.0-10.0)
[2020-10-10 10:10] LABS: BLOOD UREA NITROGEN 12 MG/DL (7-18); CALCIUM LEVEL 9.5 MG/DL (8.8-10.2); CARBON DIOXIDE LEVEL 28 MEQ/L (21-32); CHLORIDE LEVEL 103 MEQ/L (98-107); GLOMERULAR FILTRATION RATE > 60.0 (>39); GLUCOSE, FASTING 102 MG/DL (70-100); POTASSIUM SERUM 3.3 MEQ/L (3.5-5.1); SODIUM LEVEL 139 MEQ/L (136-145)
[2020-10-10] MEDS: FENOFIBRATE 145 MG TAB (TRICOR) PO SCH (10:29)
[2020-10-10] MEDS: ENOXAPARIN 40MG/0.4ML SYRINGE (J1650 PER 10MG) SC SCH (10:29)
[2020-10-10] MEDS: CYANOCOBALAMIN 1,000MCG/ML VIAL (J3420) IM SCH (10:29)
[2020-10-10] MEDS: VENLAFAXINE **XR** 75MG CAPSULE PO SCH ×2 (10:30→17:31)
[2020-10-10] MEDS: BENZONATATE 100 MG CAP PO SCH ×3 (10:30→20:15)
[2020-10-10] MEDS: OMEPRAZOLE 20 MG CAP PO SCH (10:30)
[2020-10-10] MEDS: ASPIRIN 81 MG CHEW TABLET PO SCH (10:30)
[2020-10-10] MEDS: amLODIPine 5 MG TAB PO SCH (10:32)
[2020-10-10] MEDS ORDERED: POTASSIUM CHLORIDE 10 MEQ SR TABLET PO ONE (12:15)
[2020-10-10 13:42] VITALS: BP 140/70
[2020-10-10 19:28] VITALS: BP 119/58
[2020-10-10] MEDS: DONEPEZIL 5 MG TAB PO SCH (20:15)
[2020-10-10] MEDS: oxyBUTYnin *DITROPAN XL* 5 MG TABCR PO SCH (20:15)
[2020-10-10] MEDS: ATORVASTATIN 20 MG TAB PO SCH (20:15)
[2020-10-10] MEDS: RAMELTEON 8 MG TAB (ROZEREM) PO PRN (22:56)
[2020-10-11 04:29] VITALS: BP 158/65
[2020-10-11 07:33] LABS: HEMATOCRIT 37.8 % (36.0-47.0); HEMOGLOBIN 12.1 g/dl (12.0-15.5); MEAN CORPUSCULAR HEMOGLOBIN 32.2 pg (27.0-33.0); MEAN CORPUSCULAR VOLUME 100.5 fl (80.0-96.0); PLATELET COUNT, AUTOMATED 317 10^3/uL (150-450); RED BLOOD COUNT 3.76 10^6/uL (4.00-5.40); WHITE BLOOD COUNT 4.3 10^3/uL (4.0-10.0)
[2020-10-11 07:55] LABS: BLOOD UREA NITROGEN 16 MG/DL (7-18); CALCIUM LEVEL 9.3 MG/DL (8.8-10.2); CARBON DIOXIDE LEVEL 28 MEQ/L (21-32); CHLORIDE LEVEL 105 MEQ/L (98-107); CREATININE FOR GFR 0.46 MG/DL (0.55-1.30); GLOMERULAR FILTRATION RATE > 60.0 (>39); GLUCOSE, FASTING 103 MG/DL (70-100); POTASSIUM SERUM 3.8 MEQ/L (3.5-5.1); SODIUM LEVEL 140 MEQ/L (136-145)
[2020-10-11] MEDS: FENOFIBRATE 145 MG TAB (TRICOR) PO SCH (09:47)
[2020-10-11] MEDS: amLODIPine 5 MG TAB PO SCH (09:47)
[2020-10-11] MEDS: ASPIRIN 81 MG CHEW TABLET PO SCH (09:47)
[2020-10-11] MEDS: OMEPRAZOLE 20 MG CAP PO SCH (09:47)
[2020-10-11] MEDS: CYANOCOBALAMIN 1,000MCG/ML VIAL (J3420) IM SCH (09:47)
[2020-10-11] MEDS: BENZONATATE 100 MG CAP PO SCH ×3 (09:48→20:01)
[2020-10-11] MEDS: ENOXAPARIN 40MG/0.4ML SYRINGE (J1650 PER 10MG) SC SCH (09:49)
[2020-10-11] MEDS: VENLAFAXINE **XR** 75MG CAPSULE PO SCH ×2 (09:50→16:39)
[2020-10-11] MEDS: ONDANSETRON 4MG/2ML VIAL IV PRN ×2 (11:12→16:39)
[2020-10-11 14:00] VITALS: BP 122/60
[2020-10-11] MEDS: ACETAMINOPHEN TAB 650MG DOSE (2X325MG) PO PRN ×2 (16:43→21:44)
[2020-10-11 19:21] VITALS: BP 131/67
[2020-10-11] MEDS: DONEPEZIL 5 MG TAB PO SCH (20:00)
[2020-10-11] MEDS: ATORVASTATIN 20 MG TAB PO SCH (20:00)
[2020-10-11] MEDS: oxyBUTYnin *DITROPAN XL* 5 MG TABCR PO SCH (20:01)
[2020-10-11] MEDS: RAMELTEON 8 MG TAB (ROZEREM) PO PRN (21:44)
[2020-10-12 05:49] VITALS: BP 149/70
[2020-10-12 07:16] LABS: HEMOGLOBIN 13.3 g/dl (12.0-15.5); MEAN CORPUSCULAR HEMOGLOBIN 32.9 pg (27.0-33.0); MEAN CORPUSCULAR HGB CONC 32.4 g/dl (32.0-36.5); MEAN CORPUSCULAR VOLUME 101.5 fl (80.0-96.0); PLATELET COUNT, AUTOMATED 372 10^3/uL (150-450); RED BLOOD COUNT 4.04 10^6/uL (4.00-5.40); WHITE BLOOD COUNT 5.2 10^3/uL (4.0-10.0)
[2020-10-12 07:26] LABS: BLOOD UREA NITROGEN 13 MG/DL (7-18); CARBON DIOXIDE LEVEL 29 MEQ/L (21-32); CHLORIDE LEVEL 104 MEQ/L (98-107); CREATININE FOR GFR 0.58 MG/DL (0.55-1.30); GLOMERULAR FILTRATION RATE > 60.0 (>39); GLUCOSE, FASTING 103 MG/DL (70-100); POTASSIUM SERUM 3.7 MEQ/L (3.5-5.1); SODIUM LEVEL 142 MEQ/L (136-145)
[2020-10-12] MEDS: ASPIRIN 81 MG CHEW TABLET PO SCH (08:26)
[2020-10-12] MEDS: CYANOCOBALAMIN 1,000MCG/ML VIAL (J3420) IM SCH (08:26)
[2020-10-12] MEDS: BENZONATATE 100 MG CAP PO SCH ×3 (08:26→20:19)
[2020-10-12] MEDS: ENOXAPARIN 40MG/0.4ML SYRINGE (J1650 PER 10MG) SC SCH (08:26)
[2020-10-12] MEDS: OMEPRAZOLE 20 MG CAP PO SCH (08:26)
[2020-10-12] MEDS: VENLAFAXINE **XR** 75MG CAPSULE PO SCH ×2 (08:26→17:36)
[2020-10-12] MEDS: FENOFIBRATE 145 MG TAB (TRICOR) PO SCH (08:26)
[2020-10-12] MEDS: amLODIPine 5 MG TAB PO SCH (08:26)
[2020-10-12 14:00] VITALS: BP 114/72
[2020-10-12] MEDS: ONDANSETRON 4MG/2ML VIAL IV PRN (18:05)
[2020-10-12] MEDS: PROCHLORPERAZINE 5 MG TAB (S0183) PO PRN (19:17)
[2020-10-12] MEDS: oxyBUTYnin *DITROPAN XL* 5 MG TABCR PO SCH (20:18)
[2020-10-12] MEDS: DONEPEZIL 5 MG TAB PO SCH (20:19)
[2020-10-12] MEDS: ATORVASTATIN 20 MG TAB PO SCH (20:19)
[2020-10-12 20:20] VITALS: BP 145/71
[2020-10-12] MEDS: RAMELTEON 8 MG TAB (ROZEREM) PO PRN (23:48)
[2020-10-12] MEDS: ACETAMINOPHEN TAB 650MG DOSE (2X325MG) PO PRN (23:49)
[2020-10-13 06:14] VITALS: BP 148/78
[2020-10-13 07:47] LABS: HEMATOCRIT 39.2 % (36.0-47.0); HEMOGLOBIN 12.5 g/dl (12.0-15.5); MEAN CORPUSCULAR HEMOGLOBIN 32.1 pg (27.0-33.0); MEAN CORPUSCULAR HGB CONC 31.9 g/dl (32.0-36.5); MEAN CORPUSCULAR VOLUME 100.8 fl (80.0-96.0); PLATELET COUNT, AUTOMATED 357 10^3/uL (150-450); RED BLOOD COUNT 3.89 10^6/uL (4.00-5.40)
[2020-10-13 08:11] LABS: BLOOD UREA NITROGEN 17 MG/DL (7-18); CALCIUM LEVEL 10.2 MG/DL (8.8-10.2); CARBON DIOXIDE LEVEL 29 MEQ/L (21-32); CHLORIDE LEVEL 103 MEQ/L (98-107); CREATININE FOR GFR 0.61 MG/DL (0.55-1.30); GLOMERULAR FILTRATION RATE > 60.0 (>39); GLUCOSE, FASTING 109 MG/DL (70-100); POTASSIUM SERUM 3.6 MEQ/L (3.5-5.1); SODIUM LEVEL 141 MEQ/L (136-145)
[2020-10-13] MEDS: OMEPRAZOLE 20 MG CAP PO SCH (09:48)
[2020-10-13] MEDS: VENLAFAXINE **XR** 75MG CAPSULE PO SCH ×2 (09:48→18:02)
[2020-10-13] MEDS: FENOFIBRATE 145 MG TAB (TRICOR) PO SCH (09:48)
[2020-10-13] MEDS: ASPIRIN 81 MG CHEW TABLET PO SCH (09:48)
[2020-10-13] MEDS: CYANOCOBALAMIN 1,000MCG/ML VIAL (J3420) IM SCH (09:48)
[2020-10-13] MEDS: BENZONATATE 100 MG CAP PO SCH ×3 (09:48→20:33)
[2020-10-13] MEDS: amLODIPine 5 MG TAB PO SCH (09:49)
[2020-10-13] MEDS: ENOXAPARIN 40MG/0.4ML SYRINGE (J1650 PER 10MG) SC SCH (09:49)
[2020-10-13] MEDS: ONDANSETRON 4MG/2ML VIAL IV PRN (14:09)
[2020-10-13] MEDS: PROCHLORPERAZINE 5 MG TAB (S0183) PO PRN (16:18)
[2020-10-13] MEDS: ACETAMINOPHEN TAB 650MG DOSE (2X325MG) PO PRN (16:18)
[2020-10-13] MEDS: METOCLOPRAMIDE INJ 10MG/2ML VIAL (J2765 PER 1) IV PRN (18:50)
[2020-10-13 20:30] VITALS: BP 135/70
[2020-10-13] MEDS: RAMELTEON 8 MG TAB (ROZEREM) PO PRN (20:33)
[2020-10-13] MEDS: oxyBUTYnin *DITROPAN XL* 5 MG TABCR PO SCH (20:33)
[2020-10-13] MEDS: DONEPEZIL 5 MG TAB PO SCH (20:33)
[2020-10-13] MEDS: ATORVASTATIN 20 MG TAB PO SCH (20:33)
[2020-10-14 06:06] VITALS: BP 150/76
[2020-10-14] MEDS: ASPIRIN 81 MG CHEW TABLET PO SCH (08:31)
[2020-10-14] MEDS: FENOFIBRATE 145 MG TAB (TRICOR) PO SCH (08:31)
[2020-10-14] MEDS: amLODIPine 5 MG TAB PO SCH (08:31)
[2020-10-14] MEDS: OMEPRAZOLE 20 MG CAP PO SCH (08:31)
[2020-10-14] MEDS: VENLAFAXINE **XR** 75MG CAPSULE PO SCH ×2 (08:31→17:48)
[2020-10-14] MEDS: CYANOCOBALAMIN 1,000MCG/ML VIAL (J3420) IM SCH (08:31)
[2020-10-14] MEDS: BENZONATATE 100 MG CAP PO SCH ×3 (08:31→20:13)
[2020-10-14] MEDS: ENOXAPARIN 40MG/0.4ML SYRINGE (J1650 PER 10MG) SC SCH (08:32)
[2020-10-14] MEDS: METOCLOPRAMIDE INJ 10MG/2ML VIAL (J2765 PER 1) IV PRN (13:27)
--- NOTE | 2020-10-14 15:31 | IPNPDOC ---
Text Note Date of Service The patient was seen on 10/14/20. NOTE Subjective: No any acute events overnight. Patient stated that she has continuous nausea for 3 days, no vomiting. Patient afebrile, doesn't have cough Objective: GENERAL APPEARANCE: NAD HEENT: no scleral icterus, no JVD, EOMI CARDIOVASCULAR: S1S2 LUNGS: CTA ABDOMEN: soft & not tender w palpitation MUSCULOSKELETAL: no cyanosis, no swelling INTEGUMENT: no generalized pallor NEUROLOGICAL: cranial nerve function from 2-12 intact intact, follows commands, speech not dysarthric Assessment and plan Patient is 74 years old female with past medical history of of dementia, depression, TIA, dyslipidemia, HTN,small vessel ischemic dz and multiple abdominal surgeries, who was brought to the hospital for evaluation of encephalopathy. Covid-19 asymptomatic at this time -s/p empiric antibody treatment with bamlanivimab and etesevimab Metabolic encephalopathy Resolved Hypertension Continue home meds Blood pressure under control Electrolytes imbalance Will check BMP today Chronic nausea I added Zofran IV, monitor EKG for QTc prolongation Hx of coccidiomycosis -Saturating well on RA, no SOB, denies coughing, chest pain, afebrile, not on antifungal meds Following with Dr. Dennis as o/p Deconditioning PT/OT Dementia Continue Donepezil Depression continue venlafaxin Hyperlipidemia Continue with atorvastatin and fenofibrate VS,Fishbone, I+O VS, Fishbone, I+O Vital Signs Date Time Temp Pulse Resp B/P (MAP) Pulse Ox O2 Delivery O2 Flow Rate FiO2 10/14/20 08:31 91 127/67 10/14/20 06:06 98.2 16 98 Room Air I&O- Last 24 Hours up to 6 AM 10/14/20 06:00 Intake Total 1560 ml Output Total 375 ml Balance 1185 ml JN ESQUIVEL DO October 14, 2020 15:31
[2020-10-14 15:49] LABS: BASO % 0.6 % (0.0-1.0); EOS # 0.1 10^3/uL (0.0-0.5); EOS % 1.7 % (0.0-3.0); HEMATOCRIT 38.2 % (36.0-47.0); HEMOGLOBIN 12.7 g/dl (12.0-15.5); LYMPH # 1.5 10^3/uL (1.5-5.0); LYMPH % 27.7 % (24.0-44.0); MEAN CORPUSCULAR HEMOGLOBIN 33.3 pg (27.0-33.0); MEAN CORPUSCULAR HGB CONC 33.2 g/dl (32.0-36.5); MEAN CORPUSCULAR VOLUME 100.3 fl (80.0-96.0); MONO # 0.8 10^3/uL (0.0-0.8); MONO % 14.3 % (2.0-8.0); NEUTROPHILS % 55.1 % (36.0-66.0); PLATELET COUNT, AUTOMATED 350 10^3/uL (150-450); RED BLOOD COUNT 3.81 10^6/uL (4.00-5.40); WHITE BLOOD COUNT 5.5 10^3/uL (4.0-10.0)
[2020-10-14 16:20] LABS: ALBUMIN 3.4 GM/DL (3.2-5.2); ALT/SGPT 30 U/L (12-78); BILIRUBIN,TOTAL 0.3 MG/DL (0.2-1.0); BLOOD UREA NITROGEN 19 MG/DL (7-18); CALCIUM LEVEL 9.5 MG/DL (8.8-10.2); CARBON DIOXIDE LEVEL 27 MEQ/L (21-32); CHLORIDE LEVEL 103 MEQ/L (98-107); GLOMERULAR FILTRATION RATE > 60.0 (>39); GLUCOSE, FASTING 100 MG/DL (70-100); POTASSIUM SERUM 3.7 MEQ/L (3.5-5.1); SODIUM LEVEL 139 MEQ/L (136-145); TOTAL PROTEIN 6.8 GM/DL (6.4-8.2)
[2020-10-14] MEDS: LORazepam 1 MG TAB PO PRN (17:57)
[2020-10-14] MEDS: ONDANSETRON 4MG/2ML VIAL IV PRN (17:57)
[2020-10-14] MEDS: ACETAMINOPHEN TAB 650MG DOSE (2X325MG) PO PRN (17:57)
[2020-10-14 20:00] VITALS: BP 141/61
[2020-10-14] MEDS: ATORVASTATIN 20 MG TAB PO SCH (20:13)
[2020-10-14] MEDS: DONEPEZIL 5 MG TAB PO SCH (20:13)
[2020-10-14] MEDS: RAMELTEON 8 MG TAB (ROZEREM) PO PRN (20:13)
[2020-10-14] MEDS: oxyBUTYnin *DITROPAN XL* 5 MG TABCR PO SCH (20:13)
[2020-10-15 06:00] VITALS: BP 140/63
[2020-10-15] MEDS: CYANOCOBALAMIN 1,000MCG/ML VIAL (J3420) IM SCH (08:59)
[2020-10-15] MEDS: ENOXAPARIN 40MG/0.4ML SYRINGE (J1650 PER 10MG) SC SCH (08:59)
[2020-10-15] MEDS: FENOFIBRATE 145 MG TAB (TRICOR) PO SCH (09:00)
[2020-10-15] MEDS: ASPIRIN 81 MG CHEW TABLET PO SCH (09:00)
[2020-10-15] MEDS: VENLAFAXINE **XR** 75MG CAPSULE PO SCH ×2 (09:00→17:07)
[2020-10-15] MEDS: OMEPRAZOLE 20 MG CAP PO SCH (09:00)
[2020-10-15] MEDS: BENZONATATE 100 MG CAP PO SCH ×3 (09:00→20:35)
[2020-10-15] MEDS: amLODIPine 5 MG TAB PO SCH (09:00)
[2020-10-15] MEDS: METOCLOPRAMIDE INJ 10MG/2ML VIAL (J2765 PER 1) IV PRN (13:42)
[2020-10-15] MEDS: ONDANSETRON 4MG/2ML VIAL IV PRN (17:17)
[2020-10-15] MEDS: DONEPEZIL 5 MG TAB PO SCH (20:34)
[2020-10-15] MEDS: LORazepam 1 MG TAB PO PRN (20:35)
[2020-10-15] MEDS: ATORVASTATIN 20 MG TAB PO SCH (20:35)
[2020-10-15] MEDS: ACETAMINOPHEN TAB 650MG DOSE (2X325MG) PO PRN (20:35)
[2020-10-15] MEDS: RAMELTEON 8 MG TAB (ROZEREM) PO PRN (20:35)
[2020-10-15] MEDS: oxyBUTYnin *DITROPAN XL* 5 MG TABCR PO SCH (20:35)
[2020-10-16 04:09] VITALS: BP 166/74
[2020-10-16] MEDS: BENZONATATE 100 MG CAP PO SCH ×3 (10:03→20:09)
[2020-10-16] MEDS: amLODIPine 5 MG TAB PO SCH (10:03)
[2020-10-16] MEDS: FENOFIBRATE 145 MG TAB (TRICOR) PO SCH (10:04)
[2020-10-16] MEDS: CYANOCOBALAMIN 1,000MCG/ML VIAL (J3420) IM SCH (10:04)
[2020-10-16] MEDS: ASPIRIN 81 MG CHEW TABLET PO SCH (10:04)
[2020-10-16] MEDS: OMEPRAZOLE 20 MG CAP PO SCH (10:04)
[2020-10-16] MEDS: VENLAFAXINE **XR** 75MG CAPSULE PO SCH ×2 (10:04→17:08)
[2020-10-16] MEDS: ENOXAPARIN 40MG/0.4ML SYRINGE (J1650 PER 10MG) SC SCH (10:05)
[2020-10-16 18:00] VITALS: BP 121/58
[2020-10-16] MEDS: ONDANSETRON 4MG/2ML VIAL IV PRN (18:06)
[2020-10-16] MEDS: LORazepam 1 MG TAB PO PRN (20:08)
[2020-10-16] MEDS: DONEPEZIL 5 MG TAB PO SCH (20:09)
[2020-10-16] MEDS: oxyBUTYnin *DITROPAN XL* 5 MG TABCR PO SCH (20:09)
[2020-10-16] MEDS: ATORVASTATIN 20 MG TAB PO SCH (20:09)
[2020-10-16] MEDS: ACETAMINOPHEN TAB 650MG DOSE (2X325MG) PO PRN (20:09)
[2020-10-16] MEDS: RAMELTEON 8 MG TAB (ROZEREM) PO PRN (20:53)
[2020-10-17] MEDS: ACETAMINOPHEN TAB 650MG DOSE (2X325MG) PO PRN ×2 (02:39→17:25)
[2020-10-17 04:38] VITALS: BP 170/77
[2020-10-17 07:53] VITALS: BP 174/79
[2020-10-17] MEDS: VENLAFAXINE **XR** 75MG CAPSULE PO SCH ×2 (09:51→17:24)
[2020-10-17] MEDS: ASPIRIN 81 MG CHEW TABLET PO SCH (09:51)
[2020-10-17] MEDS: BENZONATATE 100 MG CAP PO SCH ×3 (09:52→20:15)
[2020-10-17] MEDS: amLODIPine 5 MG TAB PO SCH (09:52)
[2020-10-17] MEDS: OMEPRAZOLE 20 MG CAP PO SCH (09:52)
[2020-10-17] MEDS: FENOFIBRATE 145 MG TAB (TRICOR) PO SCH (09:52)
[2020-10-17] MEDS: ENOXAPARIN 40MG/0.4ML SYRINGE (J1650 PER 10MG) SC SCH (09:53)
[2020-10-17] MEDS: ONDANSETRON 4MG/2ML VIAL IV PRN ×2 (09:53→15:06)
[2020-10-17] MEDS: CYANOCOBALAMIN 1,000MCG/ML VIAL (J3420) IM SCH (09:53)
[2020-10-17] MEDS: LORazepam 1 MG TAB PO PRN ×2 (12:22→18:32)
[2020-10-17] MEDS: METOCLOPRAMIDE INJ 10MG/2ML VIAL (J2765 PER 1) IV PRN (16:29)
[2020-10-17 20:00] VITALS: BP 143/75
[2020-10-17] MEDS: DONEPEZIL 5 MG TAB PO SCH (20:15)
[2020-10-17] MEDS: ATORVASTATIN 20 MG TAB PO SCH (20:15)
[2020-10-17] MEDS: RAMELTEON 8 MG TAB (ROZEREM) PO PRN (20:15)
[2020-10-17] MEDS: oxyBUTYnin *DITROPAN XL* 5 MG TABCR PO SCH (20:15)
[2020-10-18 06:00] VITALS: BP 137/60
[2020-10-18] MEDS: OMEPRAZOLE 20 MG CAP PO SCH (08:56)
[2020-10-18] MEDS: ENOXAPARIN 40MG/0.4ML SYRINGE (J1650 PER 10MG) SC SCH (08:56)
[2020-10-18] MEDS: CYANOCOBALAMIN 1,000MCG/ML VIAL (J3420) IM SCH (08:56)
[2020-10-18] MEDS: FENOFIBRATE 145 MG TAB (TRICOR) PO SCH (08:56)
[2020-10-18] MEDS: ASPIRIN 81 MG CHEW TABLET PO SCH (08:57)
[2020-10-18] MEDS: VENLAFAXINE **XR** 75MG CAPSULE PO SCH ×2 (08:57→17:32)
[2020-10-18] MEDS: BENZONATATE 100 MG CAP PO SCH ×3 (09:00→20:08)
[2020-10-18] MEDS: amLODIPine 5 MG TAB PO SCH (09:00)
[2020-10-18] MEDS: ONDANSETRON 4MG/2ML VIAL IV PRN (13:25)
[2020-10-18] MEDS: ACETAMINOPHEN TAB 650MG DOSE (2X325MG) PO PRN (13:25)
[2020-10-18] MEDS: PROCHLORPERAZINE 5 MG TAB (S0183) PO PRN ×2 (14:27→20:08)
[2020-10-18] MEDS: LORazepam 1 MG TAB PO PRN ×2 (14:28→20:08)
[2020-10-18 20:00] VITALS: BP 159/65
[2020-10-18] MEDS: RAMELTEON 8 MG TAB (ROZEREM) PO PRN (20:08)
[2020-10-18] MEDS: DONEPEZIL 5 MG TAB PO SCH (20:08)
[2020-10-18] MEDS: ATORVASTATIN 20 MG TAB PO SCH (20:08)
[2020-10-18] MEDS: oxyBUTYnin *DITROPAN XL* 5 MG TABCR PO SCH (20:08)
[2020-10-19] MEDS: LORazepam 1 MG TAB PO PRN ×3 (02:13→20:36)
[2020-10-19 06:00] VITALS: BP 140/70
[2020-10-19 08:45] VITALS: BP 122/65
[2020-10-19 08:48] VITALS: BP 122/65
[2020-10-19] MEDS: ENOXAPARIN 40MG/0.4ML SYRINGE (J1650 PER 10MG) SC SCH (08:51)
[2020-10-19] MEDS: ASPIRIN 81 MG CHEW TABLET PO SCH (08:52)
[2020-10-19] MEDS: VENLAFAXINE **XR** 75MG CAPSULE PO SCH ×2 (08:52→17:21)
[2020-10-19] MEDS: BENZONATATE 100 MG CAP PO SCH ×3 (08:52→20:36)
[2020-10-19] MEDS: FENOFIBRATE 145 MG TAB (TRICOR) PO SCH (08:52)
[2020-10-19] MEDS: OMEPRAZOLE 20 MG CAP PO SCH (08:52)
[2020-10-19] MEDS: CYANOCOBALAMIN 1,000MCG/ML VIAL (J3420) IM SCH (08:52)
[2020-10-19] MEDS: amLODIPine 5 MG TAB PO SCH (08:53)
[2020-10-19] MEDS: ACETAMINOPHEN TAB 650MG DOSE (2X325MG) PO PRN ×2 (10:21→20:43)
[2020-10-19] MEDS: ONDANSETRON 4 MG ORAL DISINTEGRATING TAB PO PRN (13:56)
[2020-10-19] MEDS: METOCLOPRAMIDE 10 MG TAB PO PRN (17:13)
[2020-10-19 19:33] VITALS: BP 133/59
[2020-10-19] MEDS: ATORVASTATIN 20 MG TAB PO SCH (20:36)
[2020-10-19] MEDS: RAMELTEON 8 MG TAB (ROZEREM) PO PRN (20:36)
[2020-10-19] MEDS: DONEPEZIL 5 MG TAB PO SCH (20:36)
[2020-10-19] MEDS: oxyBUTYnin *DITROPAN XL* 5 MG TABCR PO SCH (20:37)
[2020-10-19] MEDS: PROCHLORPERAZINE 5 MG TAB (S0183) PO PRN (20:37)
[2020-10-20 04:17] VITALS: BP 112/64
[2020-10-20] MEDS: ASPIRIN 81 MG CHEW TABLET PO SCH (08:38)
[2020-10-20] MEDS: OMEPRAZOLE 20 MG CAP PO SCH (08:38)
[2020-10-20] MEDS: amLODIPine 5 MG TAB PO SCH (08:38)
[2020-10-20] MEDS: FENOFIBRATE 145 MG TAB (TRICOR) PO SCH (08:38)
[2020-10-20] MEDS: VENLAFAXINE **XR** 75MG CAPSULE PO SCH ×2 (08:39→17:30)
[2020-10-20] MEDS: CYANOCOBALAMIN 1,000MCG/ML VIAL (J3420) IM SCH (08:39)
[2020-10-20] MEDS: BENZONATATE 100 MG CAP PO SCH ×3 (08:40→20:02)
[2020-10-20] MEDS: ENOXAPARIN 40MG/0.4ML SYRINGE (J1650 PER 10MG) SC SCH (08:40)
[2020-10-20] MEDS: SODIUM CHLORIDE NASAL 0.65% SPRAY BTL (OCEAN) SCH ×2 (12:00→20:03)
[2020-10-20] MEDS: ONDANSETRON 4 MG ORAL DISINTEGRATING TAB PO PRN ×2 (12:12→17:31)
[2020-10-20] MEDS: PROCHLORPERAZINE 5 MG TAB (S0183) PO PRN (13:21)
[2020-10-20] MEDS: LORazepam 1 MG TAB PO PRN ×2 (15:17→20:02)
[2020-10-20] MEDS: DONEPEZIL 5 MG TAB PO SCH (20:01)
[2020-10-20] MEDS: oxyBUTYnin *DITROPAN XL* 5 MG TABCR PO SCH (20:02)
[2020-10-20] MEDS: RAMELTEON 8 MG TAB (ROZEREM) PO PRN (20:02)
[2020-10-20] MEDS: ACETAMINOPHEN TAB 650MG DOSE (2X325MG) PO PRN (20:02)
[2020-10-20] MEDS: ATORVASTATIN 20 MG TAB PO SCH (20:02)
[2020-10-21 04:07] VITALS: BP 131/58
[2020-10-21] MEDS: CYANOCOBALAMIN 1,000MCG/ML VIAL (J3420) IM SCH (08:16)
[2020-10-21] MEDS: ASPIRIN 81 MG CHEW TABLET PO SCH (08:16)
[2020-10-21] MEDS: FENOFIBRATE 145 MG TAB (TRICOR) PO SCH (08:16)
[2020-10-21] MEDS: amLODIPine 5 MG TAB PO SCH (08:17)
[2020-10-21] MEDS: VENLAFAXINE **XR** 75MG CAPSULE PO SCH ×2 (08:17→17:20)
[2020-10-21] MEDS: OMEPRAZOLE 20 MG CAP PO SCH (08:17)
[2020-10-21] MEDS: ENOXAPARIN 40MG/0.4ML SYRINGE (J1650 PER 10MG) SC SCH (08:17)
[2020-10-21] MEDS: SODIUM CHLORIDE NASAL 0.65% SPRAY BTL (OCEAN) SCH ×2 (08:17→20:23)
[2020-10-21] MEDS: BENZONATATE 100 MG CAP PO SCH ×3 (08:17→20:22)
[2020-10-21] MEDS: ONDANSETRON 4 MG ORAL DISINTEGRATING TAB PO PRN ×2 (09:13→13:16)
[2020-10-21] MEDS: LORazepam 1 MG TAB PO PRN ×3 (09:41→20:22)
[2020-10-21] MEDS: PROCHLORPERAZINE 5 MG TAB (S0183) PO PRN (09:41)
[2020-10-21] MEDS: METOCLOPRAMIDE 10 MG TAB PO PRN (10:51)
[2020-10-21] MEDS: ACETAMINOPHEN TAB 650MG DOSE (2X325MG) PO PRN ×2 (15:00→20:22)
[2020-10-21] MEDS: DONEPEZIL 5 MG TAB PO SCH (20:22)
[2020-10-21] MEDS: oxyBUTYnin *DITROPAN XL* 5 MG TABCR PO SCH (20:22)
[2020-10-21] MEDS: RAMELTEON 8 MG TAB (ROZEREM) PO PRN (20:22)
[2020-10-21] MEDS: ATORVASTATIN 20 MG TAB PO SCH (20:22)
[2020-10-21 20:30] VITALS: BP 148/65
[2020-10-22] MEDS: SODIUM CHLORIDE NASAL 0.65% SPRAY BTL (OCEAN) SCH ×2 (09:00→21:00)
[2020-10-22] MEDS: FENOFIBRATE 145 MG TAB (TRICOR) PO SCH (09:26)
[2020-10-22] MEDS: ASPIRIN 81 MG CHEW TABLET PO SCH (09:26)
[2020-10-22] MEDS: VENLAFAXINE **XR** 75MG CAPSULE PO SCH ×2 (09:29→17:35)
[2020-10-22] MEDS: amLODIPine 5 MG TAB PO SCH (09:29)
[2020-10-22] MEDS: OMEPRAZOLE 20 MG CAP PO SCH (09:29)
[2020-10-22] MEDS: LORazepam 1 MG TAB PO PRN ×2 (09:30→17:35)
[2020-10-22] MEDS: ENOXAPARIN 40MG/0.4ML SYRINGE (J1650 PER 10MG) SC SCH (09:30)
[2020-10-22] MEDS: BENZONATATE 100 MG CAP PO SCH ×3 (09:30→20:02)
[2020-10-22] MEDS: CYANOCOBALAMIN 1,000MCG/ML VIAL (J3420) IM SCH (09:38)
[2020-10-22 10:20] VITALS: BP 149/72
[2020-10-22] MEDS: PROCHLORPERAZINE 5 MG TAB (S0183) PO PRN (11:37)
[2020-10-22] MEDS: ONDANSETRON 4 MG ORAL DISINTEGRATING TAB PO PRN (13:06)
[2020-10-22 14:57] VITALS: BP 135/89
[2020-10-22] MEDS: oxyBUTYnin *DITROPAN XL* 5 MG TABCR PO SCH (20:02)
[2020-10-22] MEDS: ATORVASTATIN 20 MG TAB PO SCH (20:02)
[2020-10-22] MEDS: DONEPEZIL 5 MG TAB PO SCH (20:02)
[2020-10-22] MEDS: RAMELTEON 8 MG TAB (ROZEREM) PO PRN (20:02)
[2020-10-22] MEDS: ACETAMINOPHEN TAB 650MG DOSE (2X325MG) PO PRN (20:06)
[2020-10-23 06:00] VITALS: BP 129/77
[2020-10-23] MEDS: ASPIRIN 81 MG CHEW TABLET PO SCH (08:22)
[2020-10-23] MEDS: OMEPRAZOLE 20 MG CAP PO SCH (08:22)
[2020-10-23] MEDS: BENZONATATE 100 MG CAP PO SCH ×3 (08:22→20:01)
[2020-10-23] MEDS: FENOFIBRATE 145 MG TAB (TRICOR) PO SCH (08:22)
[2020-10-23] MEDS: ENOXAPARIN 40MG/0.4ML SYRINGE (J1650 PER 10MG) SC SCH (08:23)
[2020-10-23] MEDS: CYANOCOBALAMIN 1,000MCG/ML VIAL (J3420) IM SCH (08:23)
[2020-10-23] MEDS: SODIUM CHLORIDE NASAL 0.65% SPRAY BTL (OCEAN) SCH ×2 (08:24→20:03)
[2020-10-23] MEDS: VENLAFAXINE **XR** 75MG CAPSULE PO SCH ×2 (08:24→18:18)
[2020-10-23] MEDS: amLODIPine 5 MG TAB PO SCH (08:25)
[2020-10-23] MEDS: METOCLOPRAMIDE 10 MG TAB PO PRN ×2 (10:15→18:18)
[2020-10-23] MEDS: ONDANSETRON 4 MG ORAL DISINTEGRATING TAB PO PRN (13:27)
[2020-10-23] MEDS: LORazepam 1 MG TAB PO PRN ×2 (14:04→18:17)
[2020-10-23] MEDS: ACETAMINOPHEN TAB 650MG DOSE (2X325MG) PO PRN ×2 (15:40→20:02)
[2020-10-23] MEDS: oxyBUTYnin *DITROPAN XL* 5 MG TABCR PO SCH (20:01)
[2020-10-23] MEDS: RAMELTEON 8 MG TAB (ROZEREM) PO PRN (20:01)
[2020-10-23] MEDS: DONEPEZIL 5 MG TAB PO SCH (20:01)
[2020-10-23] MEDS: ATORVASTATIN 20 MG TAB PO SCH (20:01)
[2020-10-24 06:00] VITALS: BP 134/77
[2020-10-24] MEDS: SODIUM CHLORIDE NASAL 0.65% SPRAY BTL (OCEAN) SCH ×2 (09:00→20:31)
[2020-10-24] MEDS: ENOXAPARIN 40MG/0.4ML SYRINGE (J1650 PER 10MG) SC SCH (09:23)
[2020-10-24] MEDS: BENZONATATE 100 MG CAP PO SCH ×3 (09:24→20:30)
[2020-10-24] MEDS: OMEPRAZOLE 20 MG CAP PO SCH (09:24)
[2020-10-24] MEDS: VENLAFAXINE **XR** 75MG CAPSULE PO SCH ×2 (09:24→17:18)
[2020-10-24] MEDS: CYANOCOBALAMIN 1,000MCG/ML VIAL (J3420) IM SCH (09:24)
[2020-10-24] MEDS: LORazepam 1 MG TAB PO PRN ×3 (09:24→20:31)
[2020-10-24] MEDS: ASPIRIN 81 MG CHEW TABLET PO SCH (09:24)
[2020-10-24] MEDS: FENOFIBRATE 145 MG TAB (TRICOR) PO SCH (09:24)
[2020-10-24] MEDS: amLODIPine 5 MG TAB PO SCH (09:26)
[2020-10-24] MEDS: METOCLOPRAMIDE 10 MG TAB PO PRN ×2 (12:35→18:41)
--- NOTE | 2020-10-24 13:24 | IPNPDOC ---
Text Note Date of Service The patient was seen on 10/24/20. NOTE Subjective: No any acute events overnight. Patient was tested negative for COVID 19 today Objective: GENERAL APPEARANCE: NAD HEENT: no scleral icterus, no JVD, EOMI CARDIOVASCULAR: S1S2 LUNGS: CTA ABDOMEN: soft & not tender w palpitation MUSCULOSKELETAL: no cyanosis, no swelling INTEGUMENT: no generalized pallor NEUROLOGICAL: cranial nerve function from 2-12 intact intact, follows commands, speech not dysarthric Assessment and plan Patient is 74 years old female with past medical history of of dementia, depression, TIA, dyslipidemia, HTN,small vessel ischemic dz and multiple abdominal surgeries, who was brought to the hospital for evaluation of encephalopathy. Covid-19 Resolved -s/p empiric antibody treatment with bamlanivimab and etesevimab Metabolic encephalopathy Resolved Hypertension Continue home meds Blood pressure under control Electrolytes imbalance Will check BMP today Chronic nausea Continue Zofran IV, monitor EKG for QTc prolongation Hx of coccidiomycosis -Saturating well on RA, no SOB, denies coughing, chest pain, afebrile, not on antifungal meds Following with Dr. Dennis as o/p Deconditioning PT/OT Dementia Continue Donepezil Depression continue venlafaxin Hyperlipidemia Continue with atorvastatin and fenofibrate VS,Fishbone, I+O VS, Fishbone, I+O Vital Signs Date Time Temp Pulse Resp B/P (MAP) Pulse Ox O2 Delivery O2 Flow Rate FiO2 10/24/20 09:26 80 135/73 10/24/20 06:00 97.8 18 97 Room Air I&O- Last 24 Hours up to 6 AM 10/24/20 06:00 Intake Total 1460 ml Output Total 1000 ml Balance 460 ml JN ESQUIVEL DO October 24, 2020 13:24
[2020-10-24 14:15] LABS: BASO % 0.4 % (0.0-1.0); EOS # 0.1 10^3/uL (0.0-0.5); EOS % 0.8 % (0.0-3.0); HEMATOCRIT 38.8 % (36.0-47.0); HEMOGLOBIN 12.8 g/dl (12.0-15.5); LYMPH % 27.5 % (24.0-44.0); MEAN CORPUSCULAR HEMOGLOBIN 32.6 pg (27.0-33.0); MEAN CORPUSCULAR VOLUME 98.7 fl (80.0-96.0); MONO # 1.1 10^3/uL (0.0-0.8); MONO % 14.6 % (2.0-8.0); NEUTROPHILS # 4.1 10^3/uL (1.5-8.5); NEUTROPHILS % 56.4 % (36.0-66.0); PLATELET COUNT, AUTOMATED 370 10^3/uL (150-450); RED BLOOD COUNT 3.93 10^6/uL (4.00-5.40); WHITE BLOOD COUNT 7.3 10^3/uL (4.0-10.0)
[2020-10-24 14:44] LABS: ALBUMIN 3.6 GM/DL (3.2-5.2); ALT/SGPT 41 U/L (12-78); BILIRUBIN,TOTAL 0.3 MG/DL (0.2-1.0); BLOOD UREA NITROGEN 10 MG/DL (7-18); CALCIUM LEVEL 9.6 MG/DL (8.8-10.2); CARBON DIOXIDE LEVEL 31 MEQ/L (21-32); CHLORIDE LEVEL 100 MEQ/L (98-107); CREATININE FOR GFR 0.44 MG/DL (0.55-1.30); GLOMERULAR FILTRATION RATE > 60.0 (>39); GLUCOSE, FASTING 87 MG/DL (70-100); SODIUM LEVEL 138 MEQ/L (136-145); TOTAL PROTEIN 6.7 GM/DL (6.4-8.2)
[2020-10-24] MEDS ORDERED: GI COCKTAIL 50ML BTL(HYOSCYAMINE/MAALOX/LIDOCAINE VISCOUS)(1:3:1) PO ONE (15:00)
[2020-10-24] MEDS: ONDANSETRON 4 MG ORAL DISINTEGRATING TAB PO PRN (17:18)
[2020-10-24] MEDS: oxyBUTYnin *DITROPAN XL* 5 MG TABCR PO SCH (20:31)
[2020-10-24] MEDS: ATORVASTATIN 20 MG TAB PO SCH (20:31)
[2020-10-24] MEDS: DONEPEZIL 5 MG TAB PO SCH (20:31)
[2020-10-24] MEDS: hydrOXYzine 25 MG TAB PO PRN (22:37)
[2020-10-24] MEDS: ACETAMINOPHEN TAB 650MG DOSE (2X325MG) PO PRN (22:37)
[2020-10-24] MEDS: RAMELTEON 8 MG TAB (ROZEREM) PO PRN (22:38)
[2020-10-25 06:00] VITALS: BP 141/71
[2020-10-25] MEDS: CYANOCOBALAMIN 1,000MCG/ML VIAL (J3420) IM SCH (09:40)
[2020-10-25] MEDS: ENOXAPARIN 40MG/0.4ML SYRINGE (J1650 PER 10MG) SC SCH (09:40)
[2020-10-25] MEDS: SODIUM CHLORIDE NASAL 0.65% SPRAY BTL (OCEAN) SCH ×2 (09:40→20:27)
[2020-10-25] MEDS: FENOFIBRATE 145 MG TAB (TRICOR) PO SCH (09:41)
[2020-10-25] MEDS: BENZONATATE 100 MG CAP PO SCH ×3 (09:41→20:26)
[2020-10-25] MEDS: VENLAFAXINE **XR** 75MG CAPSULE PO SCH ×2 (09:41→18:05)
[2020-10-25] MEDS: OMEPRAZOLE 20 MG CAP PO SCH (09:41)
[2020-10-25] MEDS: amLODIPine 5 MG TAB PO SCH (09:41)
[2020-10-25] MEDS: ASPIRIN 81 MG CHEW TABLET PO SCH (09:41)
[2020-10-25] MEDS: LORazepam 1 MG TAB PO PRN ×2 (15:33→20:26)
[2020-10-25] MEDS: ONDANSETRON 4 MG ORAL DISINTEGRATING TAB PO PRN (16:49)
[2020-10-25] MEDS: hydrOXYzine 25 MG TAB PO PRN (18:05)
[2020-10-25] MEDS: oxyBUTYnin *DITROPAN XL* 5 MG TABCR PO SCH (20:26)
[2020-10-25] MEDS: RAMELTEON 8 MG TAB (ROZEREM) PO PRN (20:26)
[2020-10-25] MEDS: DONEPEZIL 5 MG TAB PO SCH (20:26)
[2020-10-25] MEDS: ATORVASTATIN 20 MG TAB PO SCH (20:26)
[2020-10-25] MEDS: METOCLOPRAMIDE 10 MG TAB PO PRN (20:26)
[2020-10-25] MEDS: ACETAMINOPHEN TAB 650MG DOSE (2X325MG) PO PRN (20:27)
[2020-10-26] MEDS: hydrOXYzine 25 MG TAB PO PRN ×2 (01:02→18:44)
[2020-10-26 06:00] VITALS: BP 136/64
[2020-10-26] MEDS: ENOXAPARIN 40MG/0.4ML SYRINGE (J1650 PER 10MG) SC SCH (08:09)
[2020-10-26] MEDS: CYANOCOBALAMIN 1,000MCG/ML VIAL (J3420) IM SCH (08:09)
[2020-10-26] MEDS: ASPIRIN 81 MG CHEW TABLET PO SCH (08:10)
[2020-10-26] MEDS: LORazepam 1 MG TAB PO PRN ×3 (08:10→21:27)
[2020-10-26] MEDS: SODIUM CHLORIDE NASAL 0.65% SPRAY BTL (OCEAN) SCH ×2 (08:10→19:10)
[2020-10-26] MEDS: VENLAFAXINE **XR** 75MG CAPSULE PO SCH ×2 (08:10→17:08)
[2020-10-26] MEDS: BENZONATATE 100 MG CAP PO SCH ×3 (08:10→19:09)
[2020-10-26] MEDS: OMEPRAZOLE 20 MG CAP PO SCH (08:10)
[2020-10-26] MEDS: FENOFIBRATE 145 MG TAB (TRICOR) PO SCH (08:10)
[2020-10-26] MEDS: amLODIPine 5 MG TAB PO SCH (08:11)
[2020-10-26] MEDS: ONDANSETRON 4 MG ORAL DISINTEGRATING TAB PO PRN ×2 (12:07→17:07)
[2020-10-26] MEDS: ACETAMINOPHEN TAB 650MG DOSE (2X325MG) PO PRN (12:08)
[2020-10-26] MEDS: METOCLOPRAMIDE 10 MG TAB PO PRN (14:57)
[2020-10-26] MEDS: ATORVASTATIN 20 MG TAB PO SCH (19:09)
[2020-10-26] MEDS: oxyBUTYnin *DITROPAN XL* 5 MG TABCR PO SCH (19:09)
[2020-10-26] MEDS: RAMELTEON 8 MG TAB (ROZEREM) PO PRN (19:10)
[2020-10-26] MEDS: DONEPEZIL 5 MG TAB PO SCH (19:10)
[2020-10-27 06:00] VITALS: BP 122/64
[2020-10-27 08:34] VITALS: BP 122/64
[2020-10-27] MEDS: VENLAFAXINE **XR** 75MG CAPSULE PO SCH (08:34)
[2020-10-27] MEDS: CYANOCOBALAMIN 1,000MCG/ML VIAL (J3420) IM SCH (08:34)
[2020-10-27] MEDS: amLODIPine 5 MG TAB PO SCH (08:34)
[2020-10-27] MEDS: BENZONATATE 100 MG CAP PO SCH (08:34)
[2020-10-27] MEDS: ASPIRIN 81 MG CHEW TABLET PO SCH (08:34)
[2020-10-27] MEDS: OMEPRAZOLE 20 MG CAP PO SCH (08:34)
[2020-10-27] MEDS: FENOFIBRATE 145 MG TAB (TRICOR) PO SCH (08:34)
[2020-10-27] MEDS: SODIUM CHLORIDE NASAL 0.65% SPRAY BTL (OCEAN) SCH (08:35)
[2020-10-27] MEDS: ENOXAPARIN 40MG/0.4ML SYRINGE (J1650 PER 10MG) SC SCH (08:35)
[2020-10-27] MEDS: ACETAMINOPHEN TAB 650MG DOSE (2X325MG) PO PRN (09:40)
[2020-10-27] MEDS ORDERED: AMLO1TAB24 PO (09:56)
[2020-10-27] MEDS ORDERED: ONDA4TAB6 PO ×3 (09:56→11:34)
[2020-10-27] MEDS ORDERED: METO10TA2 PO (09:56)
[2020-10-27] MEDS ORDERED: OMEP-218 PO (09:56)
[2020-10-27] MEDS ORDERED: HYDR-3363 PO ×2 (09:56→11:11)
[2020-10-27] MEDS ORDERED: ATIV1TAB7 PO (09:56)
[2020-10-27] MEDS: METOCLOPRAMIDE 10 MG TAB PO PRN (11:31)
--- NOTE | 2020-10-27 20:38 | DS.PDOC ---
Discharge Summary General Date of Admission Oct 05, 2020 at 07:39 Date of Discharge 10/27/2020 Discharge Summary PRIMARY CARE PHYSICIAN: Dr. Rodrigo Bhatti M.D. ATTENDING AT TIME OF DISCHARGE: Dr. Aleida Urbano, DISCHARGE DIAGNOS(E)S: Metabolic encephalopathy COVID 19 infection Hypertension Electrolyte imbalance Chronic nausea History of coccidiomycosis Physical deconditioning Mention Depression Hyperlipidemia History of TIA HPI & HOSPITAL COURSE: Patient was found lying on the floor for an unknown amount of time at her assisted living facility, when they helped her she was quite combative and confused, therefore she was brought into the emergency department for further evaluation. She has been hospitalized previously in May 2020, and in June 2020 for metabolic encephalopathy at that time as well. Upon arrival to the ED she did have a very high blood pressure, and she also did have an elevated ammonia, there is also some question as to whether or not she may have had a seizure and she was in a postictal state. Ammonia improved quickly, blood pressures also improved over the first night. Ultrasound of the liver found hepato-steatosis. It is suspected the dementia may also be clouding the picture. She does have a history of coccidiomycosis and she is following with a acute dialysis registered nurse outpatient, but she is not on any specific medications for this at this time. In the absence of any specific etiology for metabolic encephalopathy she was going to be discharged back to assisted living on 10/08/2020, but she was found to be incidentally COVID-19 positive. She did have a minor dry cough, but was otherwise essentially asymptomatic. She was treated empirically with bamlanivimab and stesevimab. repeat COVID-19 test on 10/24/20 was negative. She now appears stable for discharge at this time. PHYSICAL EXAMINATION ON DISCHARGE: GENERAL: Awake, alert. She is in no acute distress at this time. CARDIOVASCULAR EXAMINATION: Regular rate and rhythm, with no rubs, gallops, or murmur. RESPIRATORY EXAMINATION: Clear to auscultation bilaterally with no wheezes, rales, or rhonchi. ABDOMINAL EXAMINATION: Soft, nontender, nondistended. Bowel sounds present. EXTREMITIES: No clubbing or edema noted. 2+ pulses in the radial bilaterally. DISPOSITION: Back home to assisted living at [facility] DISCHARGE INSTRUCTIONS: Follow-up with primary care provider in 7-10 days. Diet as tolerated. Activity as tolerated. If symptoms return, or if you experience worsening of your symptoms, please call your doctor or return to the emergency department. Vital Signs/I&Os Vital Signs Date Time Temp Pulse Resp B/P (MAP) Pulse Ox O2 Delivery O2 Flow Rate FiO2 10/27/20 08:34 86 122/64 10/27/20 06:00 97.8 16 93 Room Air I&O- Last 24 Hours up to 6 AM 10/27/20 06:00 Intake Total 1695 ml Output Total 1400 ml Balance 295 ml Microbiology Microbiology 10/24/20 Respiratory Virus Panel (PCR) (WHIT) - Final, Complete 10/17/20 Respiratory Virus Panel (PCR) (WHIT) - Final, Complete SARS-CoV-2 (COVID 19) Discharge Medications Scheduled Amlodipine Besylate (Amlodipine Besylate) 5 Mg Tablet, 5 MG PO QAM Aspirin (Aspirin) 81 Mg Tab.chew, 81 MG PO DAILY, (Reported) Atorvastatin Calcium (Atorvastatin Calcium) 40 Mg Tablet, 40 MG PO QHS, (Reported) Cyanocobalamin (Vitamin B-12) (B-12) 1,000 Mcg Tablet, 1,000 MCG PO DAILY, (Reported) Donepezil HCl (Donepezil HCl) 10 Mg Tablet, 10 MG PO QHS, (Reported) Fenofibrate (Fenofibrate) 160 Mg Tablet, 160 MG PO DAILY, (Reported) Omeprazole (Omeprazole) 20 Mg Capsule.dr, 40 MG PO DAILY Oxybutynin Chloride (Ditropan Xl) 5 Mg Tab.er.24, 5 MG PO QHS, (Reported) Venlafaxine HCl (Venlafaxine HCl ER) 150 Mg Cap.er.24h, 150 MG PO BID, (Reported) Scheduled PRN Acetaminophen (Acetaminophen) 325 Mg Tablet, 650 MG PO Q4H PRN for PAIN, (Reported) Diclofenac Sodium (Voltaren) 100 Gm Gel..gram., 4 GRAM TD QID PRN for PAIN, (Reported) APPLY TO NECK, UPPER BACK, ANKLES, FEET, AND TOES Hydroxyzine HCl (Hydroxyzine HCl) 25 Mg Tablet, 25 MG PO BIDP PRN for ANXIETY Hydroxyzine HCl (Hydroxyzine HCl) 25 Mg Tablet, 25 MG PO BIDP PRN for ANXIETY Lorazepam (Ativan) 1 Mg Tablet, 1 MG PO BIDP PRN for ANXIETY Magnesium Hydroxide (Milk of Magnesia) 400 Mg/5 Ml Oral.susp, 30 ML PO DAILY PRN for CONSTIPATION, (Reported) Metoclopramide HCl (Metoclopramide HCl) 10 Mg Tablet, 10 MG PO Q6HP PRN for NAUSEA OR VOMITING Ondansetron (Ondansetron Odt) 4 Mg Tab.rapdis, 2 MG PO BIDP PRN for NAUSEA Ondansetron (Ondansetron Odt) 4 Mg Tab.rapdis, 1 TAB PO BIDP PRN for nausea/vomiting Polyethylene Glycol 3350 (Miralax) 17 Gm Powd.pack, 17 GM PO DAILY PRN for CONSTIPATION, (Reported) Prochlorperazine (Prochlorperazine Maleate) 5 Mg Tablet, 5 MG PO BID PRN for NAUSEA, (Reported) Ramelteon (Rozerem) 8 Mg Tablet, 8 MG PO QHS PRN for SLEEP, (Reported) Allergies Coded Allergies: morphine (Verified Adverse Reaction, Mild, restlessness, 10/01/20) ALEIDA URBANO DO October 27, 2020 20:38
== END 2020-10-27 13:50 | DRG 77 ==
LOC: M ED 18:00 → EDBD 18:00 → M ED INP 18:01 → ENRESERV 20:58 → M MSPAV 22:29 → OBSVTOIN 10-05 07:39 → M 4MAIN 10-07 18:40 → M MSPAV 10-22 14:58
PROVIDERS: ADMIT Internal Medicine; ATTEND Neuromusculoskeletal Medicine & OMM
DX: I67.4 Hypertensive encephalopathy (principal); U07.1 COVID-19; E72.20 Disorder of urea cycle metabolism, unspecified; I10 Essential (primary) hypertension; E87.6 Hypokalemia; E83.42 Hypomagnesemia; Z86.73 Personal history of transient ischemic attack (TIA), and cerebral infarction without residual deficits; E78.5 Hyperlipidemia, unspecified; F32.9 Major depressive disorder, single episode, unspecified; Z79.899 Other long term (current) drug therapy; Z79.82 Long term (current) use of aspirin; Z88.5 Allergy status to narcotic agent; F03.90 Unspecified dementia, unspecified severity, without behavioral disturbance, psychotic disturbance, mood disturbance, and anxiety; K21.9 Gastro-esophageal reflux disease without esophagitis

== ENCOUNTER 2020-10-31 04:48 | Inpatient (IN) | payer MEDICARE ==
[~2020-10-31] VITALS: Ht 162.6 cm; Wt 47.7 kg
[~2020-10-31 04:48] MED LIST changes: +AMLO1TAB24 PO; +ASPI81CH33 PO; +ATIV1TAB7 PO; +B-12100020 PO; +HYDR-3363 PO; +METO10TA2 PO; +MILKSUS3 PO; +PROC5TAB57 PO
[2020-10-31 05:25] LABS: BASO # 0.1 10^3/uL (0.0-0.2); BASO % 0.6 % (0.0-1.0); EOS # 0.2 10^3/uL (0.0-0.5); EOS % 1.9 % (0.0-3.0); HEMATOCRIT 39.3 % (36.0-47.0); HEMOGLOBIN 12.7 g/dl (12.0-15.5); LYMPH # 2.9 10^3/uL (1.5-5.0); LYMPH % 30.9 % (24.0-44.0); MEAN CORPUSCULAR HEMOGLOBIN 32.5 pg (27.0-33.0); MEAN CORPUSCULAR HGB CONC 32.3 g/dl (32.0-36.5); MEAN CORPUSCULAR VOLUME 100.5 fl (80.0-96.0); MONO # 1.2 10^3/uL (0.0-0.8); MONO % 12.5 % (2.0-8.0); NEUTROPHILS # 5.1 10^3/uL (1.5-8.5); NEUTROPHILS % 53.7 % (36.0-66.0); RED BLOOD COUNT 3.91 10^6/uL (4.00-5.40); WHITE BLOOD COUNT 9.4 10^3/uL (4.0-10.0)
[2020-10-31 05:38] LABS: ALBUMIN 3.7 GM/DL (3.2-5.2); ALT/SGPT 32 U/L (12-78); BILIRUBIN,DIRECT < 0.1 MG/DL (0.0-0.2); BILIRUBIN,TOTAL 0.2 MG/DL (0.2-1.0); BLOOD UREA NITROGEN 15 MG/DL (7-18); CALCIUM LEVEL 9.4 MG/DL (8.8-10.2); CARBON DIOXIDE LEVEL 31 MEQ/L (21-32); CHLORIDE LEVEL 104 MEQ/L (98-107); CK-MB VALUE MASS < 1.0 NG/ML (<3.6); CPK CREATINE PHOSPHOKINASE 71 U/L (26-192); CREATININE FOR GFR 0.68 MG/DL (0.55-1.30); GLOMERULAR FILTRATION RATE > 60.0 (>39); GLUCOSE, FASTING 155 MG/DL (70-100); MB/CK RELATIVE INDEX 1.41 (< OR =4); SODIUM LEVEL 140 MEQ/L (136-145); TOTAL PROTEIN 7.2 GM/DL (6.4-8.2); TROPONIN I < 0.02 NG/ML (< 0.10)
[2020-10-31] MEDS ORDERED: AMLO1TAB24 PO (05:55)
[2020-10-31] MEDS ORDERED: MIRA1POW3 PO (05:55)
[2020-10-31] MEDS ORDERED: HYDR-3363 PO (05:55)
[2020-10-31] MEDS ORDERED: METO10TA2 PO (05:55)
[2020-10-31] MEDS ORDERED: OMEP1CAP73 PO (05:55)
[2020-10-31] MEDS ORDERED: PROC5TAB57 PO (06:01)
[2020-10-31] MEDS ORDERED: ONDA4TAB6 PO (06:01)
--- NOTE | 2020-10-31 06:07 | REPVR ---
PROCEDURE INFORMATION: Exam: CT Head Without Contrast Exam date and time: 10/31/2020 5:23 AM Age: 75 years old Clinical indication: Altered mental status/memory loss; Confusion or disorientation; Additional info: AMS TECHNIQUE: Imaging protocol: Computed tomography of the head without contrast. Radiation optimization: All CT scans at this facility use at least one of these dose optimization techniques: automated exposure control; mA and/or kV adjustment per patient size (includes targeted exams where dose is matched to clinical indication); or iterative reconstruction. COMPARISON: 1. MRI-Brain without Contrast 06/21/2020 9:12:[address] Head without contrast 10/04/2020 6:13 PM FINDINGS: Brain: There is mild, diffuse parenchymal volume loss. There is again heterogeneity of the white matter attenuation, most consistent with moderate chronic white matter ischemic changes. There is no evidence of intracranial hemorrhage. Cerebral ventricles: The ventricular system demonstrates mild diffuse compensatory enlargement. Bones/joints: No acute fractures of the skull are identified. Paranasal sinuses: The visualized paranasal sinuses are clear. Mastoid air cells: The mastoid air cells are clear. Soft tissues: The soft tissues appear unremarkable. IMPRESSION: 1. Mild diffuse parenchymal volume loss and heterogeneous low attenuation in the white matter bilaterally, unchanged from the prior exam, and probably related to chronic small vessel ischemic disease. 2. No evidence of acute infarct or hemorrhage. Electronically signed by: Lissa Benavides On 10/31/2020 06:07:24 AM
--- NOTE | 2020-10-31 06:23 | REPVR ---
PROCEDURE INFORMATION: Exam: CT Cervical Spine Without Contrast Exam date and time: 10/31/2020 5:23 AM Age: 75 years old Clinical indication: Neck pain; Additional info: AMS TECHNIQUE: Imaging protocol: Computed tomography images of the cervical spine without contrast. Radiation optimization: All CT scans at this facility use at least one of these dose optimization techniques: automated exposure control; mA and/or kV adjustment per patient size (includes targeted exams where dose is matched to clinical indication); or iterative reconstruction. COMPARISON: CT Spine,cervical w/o contrast 10/04/2020 6:13 PM FINDINGS: Bones/joints: Evidence of anterior cervical fusion and discectomy is again noted, with an anterior fixation plate and screws from C4 through C6 and incorporated grafts at the C4-C5 and C5-C6 disc levels. There is a rotatory subluxation at C1-C2 which was not seen on the recent prior CT scan. The right lateral mass of C2 is anteriorly subluxed and the left lateral mass of C2 is posteriorly subluxed by 4-5 mm. The alignment of the cervical spine otherwise appears normal. Hypertrophic degenerative changes are seen at the articulation of the odontoid process with the anterior arch of C1 with associated narrowing of the pre dens space. There is advanced hypertrophic facet arthropathy at multiple levels, especially on the right side at C2-C3, bilaterally at C3-C4, and on the right side at C6-C7, grossly similar to the prior exam Discs/Spinal canal/Neural foramina: There are mild degenerative endplate changes at C3-C4 and C6-C7. No significant disc osteophyte complexes are identified. No significant spinal canal stenosis is seen. Prevertebral Space: The prevertebral soft tissues appear normal. Lungs: The visualized lung apices are clear. Soft tissues: The paraspinous soft tissues appear unremarkable. IMPRESSION: 1. Rotatory subluxation at C1-C2, not seen on the recent prior CT scan. This may be related to acute ligamentous injury or chronic ligamentous laxity. There are degenerative changes at the odontoid process and anterior arch of C1. 2. No acute fractures identified. 3. Anterior fusion of C4 through C6 without evidence of complication. 4. Multilevel hypertrophic facet arthropathy. Electronically signed by: Lissa Benavides On 10/31/2020 06:23:32 AM
[2020-10-31] MEDS ORDERED: NS 1,000 ML IV ONE (07:00)
[2020-10-31] MEDS ORDERED: cefTRIAXone SOD 1 GM in D5W MINI-BAG PLUS 50 ML IV ONE (07:00)
--- NOTE | 2020-10-31 07:00 | REPVR ---
PROCEDURE INFORMATION: Exam: XR Chest Exam date and time: 10/31/2020 5:55 AM Age: 75 years old Clinical indication: Other: AMS TECHNIQUE: Imaging protocol: XR of the chest. Views: 1 view. COMPARISON: MD PORTABLE CHEST X-RAY 10/04/2020 6:42 PM FINDINGS: Lungs: There is right basilar atelectasis. Pleural spaces: A trace right pleural effusion may be present. Heart/Mediastinum: No cardiomegaly. Vasculature: There is stable prominence of the aortic arch. Bones/joints: There are postoperative changes from cervical spine surgery not fully assessed. IMPRESSION: Persistent changes right lower lobe. Follow-up clearing recommended. Electronically signed by: Kana Ledezma On 10/31/2020 06:59:46 AM
[2020-10-31] MEDS ORDERED: POTASSIUM CHLORIDE 10 MEQ SR TABLET PO ONE (08:00)
[2020-10-31] MEDS ORDERED: ACETAMINOPHEN TAB 650MG DOSE (2X325MG) PO ONE (08:05)
--- NOTE | 2020-10-31 09:12 | HPEPDOC ---
[facility] Medical History & Physical Date of Admission October 31, 2020 Date of Service: October 31, 2020 Attending Physician: Celia Steen MD History and Physical CHIEF COMPLAINT: fall, altered mental status HISTORY OF PRESENT ILLNESS: Patient is a 75-year-old female with past medical history of Covid 19 infection, hypertension, chronic nausea, hx of pulmonary coccidiomycosis, depression, hyperlipidemia, history of TIA who was sent to the emergency room today status post fall with increased altered mental status. The patient lives in assisted living facility and was found down for an unknown amount of time. No known LOC, no bowel or bladder incontinence, tongue biting or post ictal phase documen gayle/noted. She appeared more confused and was unable to recall her name, date of or the people around her. The patient has baseline dementia but is normally able to recall all of these faxed along with familiar faces. She had another fall several weeks ago for which she was hospitalized 2104/ where she was treated for metabolic encephalopathy seemed to have resolved rapidly with IV fluids, no new infections were identified aside from Covid 19 which she was asymptomatic for and found on a routine Covid 19 tests to send back to assisted living. The patient was kept at the hospital until her quarantine time was up. The patient does not remember the events of falling but there is no documented tremoring, post ictal phase, hitting of her head, document of chest pain, shortness of breath, fevers, chills and has been eating well at this visit living facility. Due to the events of today she was sent to the emergency room for further evaluation. In the emergency room, vital signs were 97.6F, heart rate [id number] sinus tachycardia, RR 18, blood pressure 457402/6886, 96% on room air. With ER staff she was greatly confused and could not even recommend her son at the bedside. She was started on IV fluids. The VBC was normal H&H stable, potassium low at 3.0, lactic acid high at 3.1. QTc was found to be 500 and ECG was similar to prior on file, sinus arrhythmia. UA positive, blood cultures collected and sent. CT head was negative for any acute intracranial abnormalities. CXR: Persistent changes right lower lobe. She complained of chills and was tremoring. Also complained of dysuria, increased urinary frequency, some suprapubic discomfort on exam. She denied CVA tenderness, n/v/d, decreased appetite. She was more awake and conversant with me by the time I was able to come and see her. She was still lethargic; however, and not Ox3. She was admitted for further wo rkup/treatment of acute metabolic encephalopathy, r/o 2/2 to UTI, sepsis, fall. REVIEW OF SYSTEMS: Neg except mentioned above PAST MEDICAL HISTORY: Dementia Depression hx of TIA hx of hepatosteatosis Physical deconditioning, chronic HLD Chronic HTN Chronic small vessel ischemic disease GERD Hx of pulmonary coccidiomycosis Hx of COVID-19 infection (Dx 10/07/20, tested neg 10/24 and again on 10/31) Hx of cholelithiasis SURGICAL HISTORY Tonsillectomy C4-C6 fusion Partial colectomy with ostomy with subsequent reversal 2 to manage perforated diverticulitis SOCIAL HISTORY: Denies tobacco or drug use. Lives at an assisted living facility. 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 HOME MEDICATIONS: Please see below. PHYSICAL EXAMINATION: CONSTITUTIONAL: Cold and tremoring, in bed, confused to events of the day but also able to tell me place, name. EYES: PERRLA, EOM intact HENT, MOUTH: Normocephalic, atraumatic, moist mucous membranes NECK: SUPPLE, no JVD, no lymphadenopathy, no carotid bruit CV: sinus tachycardia, S1S2 normal, no murmurs/rubs/gallops RESPIRATORY: Clear to auscultation bilaterally, no rales/rhonchi/wheezes GI: BS positive in 4 quadrants, soft, nontender, nondistended, no rebound or guarding, no organomegaly : Deferred MUSCULOSKELETAL: Normal ROM. No cyanosis, clubbing, swelling, joint deformity, extremity edema INTEGUMENTARY: Skin tear on left upper ext, very superficial NEUROLOGIC: Cranial Nerves II-XII are intact, no focal deficits LABORATORY DATA: Please see below MICRO: Bcx x 2 sets pending UA +, UCx pending IMAGING: CT head: 1. Mild diffuse parenchymal volume loss and heterogeneous low attenuation in the white matter bilaterally, unchanged from the prior exam, and probably related to chronic small vessel ischemic disease. 2. No evidence of acute infarct or hemorrhage. CXR: Persistent changes right lower lobe. Follow-up clearing recommended. CT cervical spine: 1. Rotatory subluxation at C1-C2, not seen on the recent prior CT scan. This may be related to acute ligamentous injury or chronic ligamentous laxity. There are degenerative changes at the odontoid process and anterior arch of C1. 2. No acute fractures identified. 3. Anterior fusion of C4 through C6 without evidence of complication. 4. Multilevel hypertrophic facet arthropathy. ASSESSMENT: 75-year-old female with past medical history of Covid 19 infection, hypertension, chronic nausea, hx of pulmonary coccidiomycosis, depression, hyperlipidemia, history of TIA admitted for further workup/treatment of acute metabolic encephalopathy, r/o 2/2 to UTI, sepsis, fall. PLAN: Acute metabolic encephalopathy likely 2/2 to UTI, sepsis. -WBC wnl, afebrile but LA 3.1, HR >90, + UA -CT head neg, no neurological deficits. -Improving after IV rocephin, IVFS -C/w ceftriaxone, IVFs, monitor improvement of LA, daily labs -F/u all cultures above Hypokalemia, acute and likely 2/2 to dehydration -K 3.0, 40 mEq KCL given in ER -repeat K 3.7 -F/u on AM labs Fall possibly 2/2 to increased unsteadiness, confusion from UTI -Weak in bed currently -chronic physical deconditioned state -C/w treatment above, PT/OT when improving -Fall risk, ambulate with assistance only Hx of COVID-19 infection -No incr SOB, changes on CXR -Positive originally on 10/07/20 and again on 10/17/20. -Last two tests on 10/24/20 and 10/31/20 negative HTN -Resume home meds IBS / lactose intolerance / chronic diarrhea/chronic nausea -C/w home meds -Modify diet here -Can add immodium if needed -Only start zofran, reglan. D/c compazine for now. Hx coccidiomycosis -Saturating well on RA, no SOB, denies coughing, chest pain, afebrile, not on antifungal meds -Abnormal CXR above- unchanged from prior -Per patient was diagnosed in [place], [place] before moving here in 2019 -Following with Dr. Dennis as o/p, had recent bronchoscopy in 09/2020 -Requesting records from [facility] Urinary incontinence -C/w home meds Chronic deconditioning believed to be from chronic illness, r/o acute cause above -This is why she is in assisted living, has been receiving services there per patient -F/u PT/OT suggestions TIA / Chronic small vessel ischemic disease -No new neuro changes -Doing neuro checks for 24 hours. -C/w ASA & statin Dementia -Great historian at baseline despite this , still slightly confused at times with acute illness above -C/w donepezil HS Depression -Stable -C/w venlafaxine DLP -C/w atorvastatin & fenofibrate GERD -PPI DVT px: -Lovenox DISPOSITION: Currently resides at assisted living facility, PT/OT f/u recommendations. Plan is to d/c back to facility when closer to baseline. Updated son who was at bedside during exam. Full Code. Vital Signs Vital Signs Date Time Temp Pulse Resp B/P (MAP) Pulse Ox O2 Delivery O2 Flow Rate FiO2 10/31/20 08:00 102 16 149/88 (108) 97 Room Air 10/31/20 04:53 97.6 Laboratory Data Labs 24H Laboratory Tests 2 10/31/20 05:01: Immature Granulocyte % (Auto) 0.4, Neutrophils (%) (Auto) 53.7, Lymphocytes (%) (Auto) 30.9, Monocytes (%) (Auto) 12.5H, Eosinophils (%) (Auto) 1.9, Basophils (%) (Auto) 0.6, Neutrophils # (Auto) 5.1, Lymphocytes # (Auto) 2.9, Monocytes # (Auto) 1.2H, Eosinophils # (Auto) 0.2, Basophils # (Auto) 0.1, Nucleated Red Blood Cells % (auto) 0.0 10/31/20 05:05: Anion Gap 5L, Glomerular Filtration Rate > 60.0, Lactic Acid Level 3.1*H, Calciu m Level 9.4, Total Bilirubin 0.2, Direct Bilirubin < 0.1, Aspartate Amino Transf (AST/SGOT) 17, Alanine Aminotransferase (ALT/SGPT) 32, Alkaline Phosphatase 76, Ammonia 31, Total Creatine Kinase 71, Creatine Kinase MB < 1.0, Creatine Kinase MB Relative Index 1.41, Troponin I < 0.02, Total Protein 7.2, Albumin 3.7, Albumin/Globulin Ratio 1.1L, Thyroid Stimulating Hormone (TSH) 4.180H 10/31/20 05:23: Urine Color YELLOW, Urine Appearance CLOUDYH, Urine pH 8.0, Urine Specific Gr avity 1.011, Urine Protein NEGATIVE, Urine Glucose (UA) 1+H, Urine Ketones NEGATIVE, Urine Blood NEGATIVE, Urine Nitrite NEGATIVE, Urine Bilirubin NEGATIVE, Urine Urobilinogen 0.2, Urine Leukocyte Esterase 1+H, Urine WBC (Auto) 25H, Urine RBC (Auto) 3, Urine Hyaline Casts (Auto) 0, Urine Bacteria (Auto) 1+H, Urine Squamous Epithelial Cells 3, Urine Transitional Epithelial Cells 1, Urine Mucus (Auto) SMALL, Urine Sperm (Auto) CBC/BMP Laboratory Tests 10/31/20 05:01 10/31/20 05:05 Microbiology Microbiology 10/31/20 Respiratory Virus Panel (PCR) (WHIT) - Final, Complete 10/31/20 Urine Culture, Received Pending 10/31/20 Blood Culture, Received Pending Home Medications Scheduled Amlodipine Besylate (Amlodipine Besylate) 5 Mg Tablet, 5 MG PO DAILY Aspirin (Aspirin) 81 Mg Tab.chew, 81 MG PO DAILY Atorvastatin Calcium (Atorvastatin Calcium) 40 Mg Tablet, 40 MG PO QHS Cyanocobalamin (Vitamin B-12) (B-12) 1,000 Mcg Tablet, 1,000 MCG PO DAILY Donepezil HCl (Donepezil HCl) 10 Mg Tablet, 10 MG PO QHS Fenofibrate (Fenofibrate) 160 Mg Tablet, 160 MG PO DAILY Omeprazole (Omeprazole) 20 Mg Capsule.dr, 40 MG PO DAILY STARTED 10/28/20, ENDS 11/26/20 Oxybutynin Chloride (Ditropan Xl) 5 Mg Tab.er.24, 5 MG PO QHS Venlafaxine HCl (Venlafaxine HCl ER) 150 Mg Cap.er.24h, 150 MG PO BID 0800, 1700 Scheduled PRN Acetaminophen (Acetaminophen) 325 Mg Tablet, 650 MG PO Q4H PRN for PAIN Diclofenac Sodium (Voltaren) 100 Gm Gel..gram., 4 GRAM TD QID PRN for PAIN APPLY TO NECK, UPPER BACK, ANKLES, FEET, AND TOES Hydroxyzine HCl (Hydroxyzine HCl) 25 Mg Tablet, 25 MG PO BID PRN for ANXIETY STARTED 10/27/20, ENDS 11/10/20 Magnesium Hydroxide (Milk of Magnesia) 400 Mg/5 Ml Oral.susp, 30 ML PO DAILY PRN for CONSTIPATION Metoclopramide HCl (Metoclopramide HCl) 10 Mg Tablet, 10 MG PO Q6H PRN for NAUSEA OR VOMITING STARTED 10/27/20, ENDS 11/05/20 Ondansetron (Ondansetron Odt) 4 Mg Tab.rapdis, 4 MG PO BID PRN for NAUSEA STARTED 10/27/20, ENDS 11/10/20 Polyethylene Glycol 3350 (Miralax) 17 Gm Powd.pack, 17 GM PO DAILY PRN for CONSTIPATION Prochlorperazine (Prochlorperazine Maleate) 5 Mg Tablet, 5 MG PO BID PRN for NAUSEA Ramelteon (Rozerem) 8 Mg Tablet, 8 MG PO QHS PRN for INSOMNIA Allergies Coded Allergies: morphine (Verified Adverse Reaction, Mild, restlessness, 10/01/20) A-FIB/CHADSVASC A-FIB History Current/History of A-Fib/PAF?: No Current PO Anticoag Therapy: No Age/Risk Factor Scoring CHADSVASC: CHADSVASC Response (Comments) Value Age Risk Factor Age >/= 75 years old 2 Gender Risk Factor Female 1 Hx of CHF No 0 Hx of HTN Yes 1 Hx of Stroke/TIA/or VTE Yes 2 Hx of Diabetes No 0 Hx of Vascular Disease No 0 Total 6 Treatment Treatment ordered: Other Other anticoagulant ordered: Celia Rodriguez MD October 31, 2020 09:12
[2020-10-31] MEDS ORDERED: PROCHLORPERAZINE 5 MG TAB (S0183) PO PRN (09:15)
[2020-10-31] MEDS ORDERED: MOM 30ML SUSPENSION UDC PO PRN (09:15)
[2020-10-31] MEDS ORDERED: MIRALAX *UNIT DOSE* 17GM PACKET PO PRN (09:15)
[2020-10-31 09:28] LABS: ACETAMINOPHEN LEVEL < 2.0 UG/ML (10.0-30.0); ETHYL ALCOHOL (ETHANOL) < 0.003 % (0.000-0.010); SALICYLATE LEVEL < 1.7 MG/DL (5.0-30.0)
[2020-10-31] MEDS ORDERED: LIDOCAINE 2% 5ML JELLY UROJET TOP ONE (09:40)
[2020-10-31 10:36] LABS: INR 0.93; PROTHROMBIN TIME 12.7 SECONDS (12.5-14.3)
[2020-10-31 10:37] LABS: PARTIAL THROMBOPLASTIN TIME 25.9 SECONDS (24.2-38.5)
[2020-10-31 10:59] LABS: BLOOD UREA NITROGEN 11 MG/DL (7-18); CALCIUM LEVEL 9.5 MG/DL (8.8-10.2); CARBON DIOXIDE LEVEL 28 MEQ/L (21-32); CHLORIDE LEVEL 106 MEQ/L (98-107); CREATININE FOR GFR 0.53 MG/DL (0.55-1.30); GLOMERULAR FILTRATION RATE > 60.0 (>39); GLUCOSE, FASTING 98 MG/DL (70-100); POTASSIUM SERUM 3.7 MEQ/L (3.5-5.1); SODIUM LEVEL 141 MEQ/L (136-145)
[2020-10-31] MEDS: ASPIRIN 81 MG CHEW TABLET PO SCH (12:47)
[2020-10-31] MEDS: VENLAFAXINE **XR** 75MG CAPSULE PO SCH ×2 (12:47→16:29)
[2020-10-31] MEDS: amLODIPine 5 MG TAB PO SCH (12:47)
[2020-10-31] MEDS: NS 1,000 ML IV SCH ×3 (12:53→19:54)
[2020-10-31 14:00] VITALS: BP 140/74
[2020-10-31] MEDS: ENOXAPARIN 40MG/0.4ML SYRINGE (J1650 PER 10MG) SC SCH (15:08)
[2020-10-31] MEDS: FENOFIBRATE 145 MG TAB (TRICOR) PO SCH (15:08)
[2020-10-31] MEDS: OMEPRAZOLE 20 MG CAP PO SCH (15:08)
[2020-10-31] MEDS ORDERED: LORazepam 1 MG TAB PO ONE (16:05)
[2020-10-31] MEDS: oxyBUTYnin *DITROPAN XL* 5 MG TABCR PO SCH (19:54)
[2020-10-31] MEDS: DONEPEZIL 5 MG TAB PO SCH (19:54)
[2020-10-31] MEDS: hydrOXYzine 25 MG TAB PO PRN (19:54)
[2020-10-31] MEDS: ACETAMINOPHEN TAB 650MG DOSE (2X325MG) PO PRN (19:55)
[2020-10-31] MEDS: RAMELTEON 8 MG TAB (ROZEREM) PO PRN (19:55)
[2020-10-31] MEDS: ATORVASTATIN 20 MG TAB PO SCH (19:56)
--- NOTE | 2020-10-31 20:32 | ECGEPIP ---
[facility] - ED Test Date: 2020-10-31 Pat Name: TAY SOSA Department: Room: - Gender: Female [employer] Maker: HC : 1945 Requested By: YANET Johnson Order Number: [id number] Reading MD: Beth Ny Measurements Intervals [place] Rate: 95 P: 57 CO: 148 QRS: -1 QRSD: 96 T: 103 QT: 398 QTc: 500 Interpretive Statements Sinus rhythm with marked sinus arrhythmia Left ventricular hypertrophy with repolarization abnormality ( Sokolow-Leon ) Prolonged QT, clinical correlation less ectopy compared 10/04/20 Electronically Signed on 10-31-2020 20:32:15 EDT by Beth yN
[2020-10-31 22:00] VITALS: BP 158/86
[2020-11-01] MEDS: NS 1,000 ML IV SCH ×2 (03:20→17:57)
[2020-11-01 06:00] VITALS: BP 121/74
[2020-11-01 06:24] LABS: HEMATOCRIT 37.5 % (36.0-47.0); HEMOGLOBIN 12.1 g/dl (12.0-15.5); MEAN CORPUSCULAR HEMOGLOBIN 32.6 pg (27.0-33.0); MEAN CORPUSCULAR HGB CONC 32.3 g/dl (32.0-36.5); MEAN CORPUSCULAR VOLUME 101.1 fl (80.0-96.0); PLATELET COUNT, AUTOMATED 334 10^3/uL (150-450); RED BLOOD COUNT 3.71 10^6/uL (4.00-5.40); WHITE BLOOD COUNT 8.8 10^3/uL (4.0-10.0)
[2020-11-01 06:54] LABS: ALBUMIN 3.5 GM/DL (3.2-5.2); ALT/SGPT 28 U/L (12-78); BILIRUBIN,TOTAL 0.4 MG/DL (0.2-1.0); BLOOD UREA NITROGEN 6 MG/DL (7-18); CARBON DIOXIDE LEVEL 27 MEQ/L (21-32); CHLORIDE LEVEL 107 MEQ/L (98-107); GLOMERULAR FILTRATION RATE > 60.0 (>39); GLUCOSE, FASTING 96 MG/DL (70-100); POTASSIUM SERUM 3.2 MEQ/L (3.5-5.1); SODIUM LEVEL 139 MEQ/L (136-145); TOTAL PROTEIN 6.9 GM/DL (6.4-8.2)
[2020-11-01] MEDS: ASPIRIN 81 MG CHEW TABLET PO SCH (08:58)
[2020-11-01] MEDS: OMEPRAZOLE 20 MG CAP PO SCH (08:59)
[2020-11-01] MEDS: amLODIPine 5 MG TAB PO SCH (08:59)
[2020-11-01] MEDS: ENOXAPARIN 40MG/0.4ML SYRINGE (J1650 PER 10MG) SC SCH (09:00)
[2020-11-01] MEDS: VENLAFAXINE **XR** 75MG CAPSULE PO SCH ×2 (09:00→17:54)
[2020-11-01] MEDS: FENOFIBRATE 145 MG TAB (TRICOR) PO SCH (09:00)
[2020-11-01] MEDS: cefTRIAXone SOD 1 GM in D5W MINI-BAG PLUS 50 ML IV SCH (09:01)
[2020-11-01] MEDS: hydrOXYzine 25 MG TAB PO PRN ×2 (09:03→21:22)
[2020-11-01] MEDS: HALOPERIDOL 5MG/ML VIAL (J1630 PER 1) IV PRN (15:33)
[2020-11-01] MEDS ORDERED: POTASSIUM CHLORIDE 10 MEQ SR TABLET PO ONE (18:05)
--- NOTE | 2020-11-01 18:08 | IPNPDOC ---
Date Seen The patient was seen on 11/01/20. Progress Note SUBJECTIVE: Agitated and aggressive with staff today, added jennifer LANGLEY. Cooperative for me. Still confused to why she is here but oriented to self, birthday, place. OBJECTIVE PHYSICAL EXAMINATION: CONSTITUTIONAL: has tremor today, able to tell me place, name, birthday but not reason she is here. Agitated and became aggressive with sitter trying to help her while i was in room EYES: PERRLA, EOM intact HENT, MOUTH: Normocephalic, atraumatic, moist mucous membranes NECK: SUPPLE, no JVD, no lymphadenopathy, no carotid bruit CV: sinus , S1S2 normal, no murmurs/rubs/gallops RESPIRATORY: Clear to auscultation bilaterally, no rales/rhonchi/wheezes GI: BS positive in 4 quadrants, soft, nontender, nondistended, no rebound or guarding, no organomegaly : Deferred MUSCULOSKELETAL: Normal ROM. No cyanosis, clubbing, swelling, joint deformity, extremity edema INTEGUMENTARY: Skin tear on left upper ext, very superficial- healing but tender NEUROLOGIC: Cranial Nerves II-XII are intact, no focal deficits LABORATORY DATA: Please see below MICRO: Bcx x 2 sets NG to date UA +, UCx pending IMAGING: CT head: 1. Mild diffuse parenchymal volume loss and heterogeneous low attenuation in the white matter bilaterally, unchanged from the prior exam, and probably related to chronic small vessel ischemic disease. 2. No evidence of acute infarct or hemorrhage. CXR: Persistent changes right lower lobe. Follow-up clearing recommended. CT cervical spine: 1. Rotatory subluxation at C1-C2, not seen on the recent prior CT scan. This may be related to acute ligamentous injury or chronic ligamentous laxity. There are degenerative changes at the odontoid process and anterior arch of C1. 2. No acute fractures identified. 3. Anterior fusion of C4 through C6 without evidence of complication. 4. Multilevel hypertrophic facet arthropathy. ASSESSMENT: 75-year-old female with past medical history of Covid 19 infection, hypertension, chronic nausea, hx of pulmonary coccidiomycosis, depression, hyperlipidemia, history of TIA admitted for further workup/treatment of acute metabolic encephalopathy, r/o 2/2 to UTI, sepsis, fall. PLAN: Acute metabolic encephalopathy likely 2/2 to UTI, sepsis. -WBC wnl, afebrile but LA 3.1, HR >90, + UA -CT head neg, no neurological deficits. -Improving after IV rocephin, IVFS -C/w ceftriaxone, IVFs, monitor improvement of LA, daily labs -F/u all cultures above Hypokalemia, acute and likely 2/2 to dehydration -K 3.2, 40 mEq KCL given -F/u on AM labs Fall possibly 2/2 to increased unsteadiness, confusion from UTI , chronic physical deconditioned state -Weak still today -C/w treatment above -PT: Recommend rehab prior to return to [place]. -Fall risk, ambulate with assistance only Hx of COVID-19 infection -No incr SOB, changes on CXR -Positive originally on 10/07/20 and again on 10/17/20. -Last two tests on 10/24/20 and 10/31/20 negative HTN -C/w home meds IBS / lactose intolerance / chronic diarrhea/chronic nausea -C/w home meds -Modify diet here -Can add immodium if needed -Only start zofran, reglan. D/c compazine for now. Hx coccidiomycosis -Saturating well on RA, no SOB, denies coughing, chest pain, afebrile, not on antifungal meds -Abnormal CXR above- unchanged from prior -Per patient was diagnosed in [place], [place] before moving here in 2018 -Following with Dr. Dennis as o/p, had recent bronchoscopy in 09/2020 -Requesting records from [facility] Urinary incontinence -C/w home meds TIA / Chronic small vessel ischemic disease -No new neuro changes -C/w ASA & statin Dementia -Great historian at baseline despite this , still slightly confused at times with acute illness above -C/w donepezil HS Depression -Stable -C/w venlafaxine DLP -C/w atorvastatin & fenofibrate GERD -PPI DVT px: -Lovenox DISPOSITION: Currently resides at assisted living facility, PT: recommend rehab prior to returning to assisted living. VS, I&O, 24H, Fishbone Vital Signs/I&O Vital Signs Date Time Temp Pulse Resp B/P (MAP) Pulse Ox O2 Delivery O2 Flow Rate FiO2 11/01/20 08:59 84 157/85 11/01/20 06:00 97.2 18 96 Room Air I&O- Last 24 Hours up to 6 AM 11/01/20 06:00 Intake Total 1917.5 ml Balance 1917.5 ml Laboratory Data 24H LABS Laboratory Tests 2 11/01/20 06:12: Nucleated Red Blood Cells % (auto) 0.0, Anion Gap 5L, Glomerular Filtration Rate > 60.0, Calcium Level 8.0#L, Total Bilirubin 0.4#, Aspartate Amino Transf (AST/SGOT) 18, Alanine Aminotransferase (ALT/SGPT) 28, Alkaline Phosphatase 62, Total Protein 6.9, Albumin 3.5, Albumin/Globulin Ratio 1.0L CBC/BMP Laboratory Tests 11/01/20 06:12 Microbiology Microbiology 10/31/20 Blood Culture - Preliminary, Resulted No growth after 24 hours . All specim... 10/31/20 Blood Culture - Preliminary, Resulted No growth after 24 hours . All specim... 10/31/20 Respiratory Virus Panel (PCR) (WHIT) - Final, Complete 10/31/20 Urine Culture, Received Pending 10/31/20 Blood Culture - Preliminary, Resulted No growth after 24 hours . All specim... Celia Steen MD November 01, 2020 18:07
[2020-11-01] MEDS: oxyBUTYnin *DITROPAN XL* 5 MG TABCR PO SCH (21:21)
[2020-11-01] MEDS: ATORVASTATIN 20 MG TAB PO SCH (21:21)
[2020-11-01] MEDS: RAMELTEON 8 MG TAB (ROZEREM) PO PRN (21:21)
[2020-11-01] MEDS: DONEPEZIL 5 MG TAB PO SCH (21:21)
[2020-11-01] MEDS: ACETAMINOPHEN TAB 650MG DOSE (2X325MG) PO PRN (21:25)
[2020-11-01 22:00] VITALS: BP 160/83
[2020-11-02] MEDS: NS 1,000 ML IV SCH (02:26)
[2020-11-02 05:39] LABS: HEMATOCRIT 36.1 % (36.0-47.0); HEMOGLOBIN 11.7 g/dl (12.0-15.5); MEAN CORPUSCULAR HEMOGLOBIN 32.6 pg (27.0-33.0); MEAN CORPUSCULAR HGB CONC 32.4 g/dl (32.0-36.5); MEAN CORPUSCULAR VOLUME 100.6 fl (80.0-96.0); PLATELET COUNT, AUTOMATED 303 10^3/uL (150-450); RED BLOOD COUNT 3.59 10^6/uL (4.00-5.40); WHITE BLOOD COUNT 7.1 10^3/uL (4.0-10.0)
[2020-11-02 06:00] VITALS: BP 158/80
[2020-11-02 06:09] LABS: ALBUMIN 3.3 GM/DL (3.2-5.2); ALT/SGPT 25 U/L (12-78); BILIRUBIN,TOTAL 0.4 MG/DL (0.2-1.0); BLOOD UREA NITROGEN 6 MG/DL (7-18); CALCIUM LEVEL 8.2 MG/DL (8.8-10.2); CARBON DIOXIDE LEVEL 26 MEQ/L (21-32); CHLORIDE LEVEL 111 MEQ/L (98-107); CREATININE FOR GFR 0.45 MG/DL (0.55-1.30); GLOMERULAR FILTRATION RATE > 60.0 (>39); GLUCOSE, FASTING 96 MG/DL (70-100); POTASSIUM SERUM 3.2 MEQ/L (3.5-5.1); SODIUM LEVEL 143 MEQ/L (136-145); TOTAL PROTEIN 6.9 GM/DL (6.4-8.2)
[2020-11-02] MEDS ORDERED: POTASSIUM CHLORIDE 10 MEQ SR TABLET PO ONE ×3 (08:25→11:00)
[2020-11-02] MEDS: VENLAFAXINE **XR** 75MG CAPSULE PO SCH ×2 (09:13→16:42)
[2020-11-02] MEDS: amLODIPine 5 MG TAB PO SCH (09:14)
[2020-11-02] MEDS: OMEPRAZOLE 20 MG CAP PO SCH (09:14)
[2020-11-02] MEDS: ASPIRIN 81 MG CHEW TABLET PO SCH (09:14)
[2020-11-02] MEDS: ENOXAPARIN 40MG/0.4ML SYRINGE (J1650 PER 10MG) SC SCH (09:14)
[2020-11-02] MEDS: FENOFIBRATE 145 MG TAB (TRICOR) PO SCH (09:14)
[2020-11-02] MEDS: cefTRIAXone SOD 1 GM in D5W MINI-BAG PLUS 50 ML IV SCH (09:15)
[2020-11-02 14:00] VITALS: BP 107/73
[2020-11-02] MEDS: ACETAMINOPHEN TAB 650MG DOSE (2X325MG) PO PRN ×2 (15:21→23:49)
--- NOTE | 2020-11-02 17:13 | IPNPDOC ---
Date Seen The patient was seen on 11/02/20. Progress Note SUBJECTIVE: No additional doses from 1 mg needed 11/01/20 for aggression/incr agitation. Calm and cooperative today. More awake and could tell me where she was, oriented to self, birthday, place- mild improvement. OBJECTIVE: PHYSICAL EXAMINATION: CONSTITUTIONAL: decreased tremor today, oriented to place, name, birthday. EYES: PERRLA, EOM intact HENT, MOUTH: Normocephalic, atraumatic, moist mucous membranes NECK: SUPPLE, no JVD, no lymphadenopathy, no carotid bruit CV: sinus , S1S2 normal, no murmurs/rubs/gallops RESPIRATORY: Clear to auscultation bilaterally, no rales/rhonchi/wheezes GI: BS positive in 4 quadrants, soft, nontender, nondistended, no rebound or guarding, no organomegaly : Deferred MUSCULOSKELETAL: Normal ROM. No cyanosis, clubbing, swelling, joint deformity, extremity edema INTEGUMENTARY: Skin tear on left upper ext, very superficial- healing but tender NEUROLOGIC: Cranial Nerves II-XII are intact, no focal deficits LABORATORY DATA: Please see below MICRO: Bcx x 2 sets NG to date UCx : E. coli IMAGING: CT head: 1. Mild diffuse parenchymal volume loss and heterogeneous low attenuation in the white matter bilaterally, unchanged from the prior exam, and probably related to chronic small vessel ischemic disease. 2. No evidence of acute infarct or hemorrhage. CXR: Persistent changes right lower lobe. Follow-up clearing recommended. CT cervical spine: 1. Rotatory subluxation at C1-C2, not seen on the recent prior CT scan. This may be related to acute ligamentous injury or chronic ligamentous laxity. There are degenerative changes at the odontoid process and anterior arch of C1. 2. No acute fractures identified. 3. Anterior fusion of C4 through C6 without evidence of complication. 4. Multilevel hypertrophic facet arthropathy. ASSESSMENT: 75-year-old female with past medical history of Covid 19 infection, hypertension, chronic nausea, hx of pulmonary coccidiomycosis, depression, hyperlipidemia, history of TIA admitted for further workup/treatment of acute metabolic encephalopathy, r/o 2/2 to UTI, sepsis, fall. PLAN: Acute metabolic encephalopathy likely 2/2 to E. coli UTI. resolved sepsis. -WBC wnl, afebrile, LA wnl, HR 80-95, UCx above -CT head neg, no neurological deficits. -C/w IV rocephin for 5 days total, IVF stopped as she is eating and drinking well -C/w daily labs Hypokalemia, acute and likely 2/2 to dehydration -K 3.2 -60 mEq given today -F/u on AM labs Fall possibly 2/2 to increased unsteadiness, confusion from UTI , chronic physical deconditioned state -Weak but slightly stronger today -C/w treatment above -PT: Recommend rehab prior to return to [place]. -Fall risk, ambulate with assistance only Hx of COVID-19 infection -No incr SOB, changes on CXR -Positive originally on 10/07/20 and again on 10/17/20. -Last two tests on 10/24/20 and 10/31/20 negative HTN -C/w home meds IBS / lactose intolerance / chronic diarrhea/chronic nausea -C/w home meds -Modify diet here -Can add immodium if needed -Luanne reglan. D/c compazine for now. Hx coccidiomycosis -Saturating well on RA, no SOB, denies coughing, chest pain, afebrile, not on antifungal meds -Abnormal CXR above- unchanged from prior -Per patient was diagnosed in [place], [place] before moving here in 2018 -Following with Dr. Dennis as o/p, had recent bronchoscopy in 09/2020 -Requesting records from [facility] Urinary incontinence -C/w home meds TIA / Chronic small vessel ischemic disease -No new neuro changes -C/w ASA & statin Dementia -Great historian at baseline despite this , still slightly confused at times with acute illness above -C/w donepezil HS Depression -Stable -C/w venlafaxine DLP -C/w atorvastatin & fenofibrate GERD -PPI DVT px: -Lovenox DISPOSITION: Currently resides at assisted living facility, PT: recommend rehab prior to returning to assisted living. VS, I&O, 24H, Fishbone Vital Signs/I&O Vital Signs Date Time Temp Pulse Resp B/P (MAP) Pulse Ox O2 Delivery O2 Flow Rate FiO2 11/02/20 14:00 98.2 85 16 107/73 (84) 98 Room Air I&O- Last 24 Hours up to 6 AM 11/02/20 06:00 Intake Total 3462 ml Balance 3462 ml Laboratory Data 24H LABS Laboratory Tests 2 11/02/20 05:23: Nucleated Red Blood Cells % (auto) 0.0, Anion Gap 6L, Glomerular Filtration Rate > 60.0, Calcium Level 8.2L, Total Bilirubin 0.4, Aspartate Amino Transf (AST/SGOT) 16, Alanine Aminotransferase (ALT/SGPT) 25, Alkaline Phosphatase 65, Total Protein 6.9, Albumin 3.3, Albumin/Globulin Ratio 0.9L CBC/BMP Laboratory Tests 11/02/20 05:23 Microbiology Microbiology 10/31/20 Blood Culture - Preliminary, Resulted No Growth after 48 hours. All Specime... 10/31/20 Blood Culture - Preliminary, Resulted No Growth after 48 hours. All Specime... 10/31/20 Respiratory Virus Panel (PCR) (WHIT) - Final, Complete 10/31/20 Urine Culture - Final, Complete Escherichia Coli 10/31/20 Blood Culture - Preliminary, Resulted No Growth after 48 hours. All Specime... Celia Steen MD November 02, 2020 17:13
[2020-11-02] MEDS: DONEPEZIL 5 MG TAB PO SCH (20:13)
[2020-11-02] MEDS: hydrOXYzine 25 MG TAB PO PRN (20:13)
[2020-11-02] MEDS: RAMELTEON 8 MG TAB (ROZEREM) PO PRN (20:13)
[2020-11-02] MEDS: ATORVASTATIN 20 MG TAB PO SCH (20:13)
[2020-11-02] MEDS: oxyBUTYnin *DITROPAN XL* 5 MG TABCR PO SCH (20:13)
[2020-11-02 22:00] VITALS: BP 113/71
[2020-11-03] MEDS: HALOPERIDOL 5MG/ML VIAL (J1630 PER 1) IV PRN (01:06)
[2020-11-03 06:00] VITALS: BP 151/85
[2020-11-03 06:17] LABS: HEMATOCRIT 35.5 % (36.0-47.0); HEMOGLOBIN 11.7 g/dl (12.0-15.5); MEAN CORPUSCULAR HEMOGLOBIN 33.3 pg (27.0-33.0); MEAN CORPUSCULAR VOLUME 101.1 fl (80.0-96.0); PLATELET COUNT, AUTOMATED 319 10^3/uL (150-450); RED BLOOD COUNT 3.51 10^6/uL (4.00-5.40); WHITE BLOOD COUNT 5.9 10^3/uL (4.0-10.0)
[2020-11-03 06:40] LABS: ALBUMIN 3.3 GM/DL (3.2-5.2); ALT/SGPT 24 U/L (12-78); BILIRUBIN,TOTAL 0.3 MG/DL (0.2-1.0); BLOOD UREA NITROGEN 9 MG/DL (7-18); CALCIUM LEVEL 8.6 MG/DL (8.8-10.2); CARBON DIOXIDE LEVEL 28 MEQ/L (21-32); CHLORIDE LEVEL 105 MEQ/L (98-107); CREATININE FOR GFR 0.52 MG/DL (0.55-1.30); GLOMERULAR FILTRATION RATE > 60.0 (>39); GLUCOSE, FASTING 135 MG/DL (70-100); POTASSIUM SERUM 3.5 MEQ/L (3.5-5.1); SODIUM LEVEL 141 MEQ/L (136-145); TOTAL PROTEIN 6.5 GM/DL (6.4-8.2)
[2020-11-03] MEDS: ENOXAPARIN 40MG/0.4ML SYRINGE (J1650 PER 10MG) SC SCH (09:27)
[2020-11-03] MEDS: FENOFIBRATE 145 MG TAB (TRICOR) PO SCH (09:27)
[2020-11-03] MEDS: CEFUROXIME 500 MG TAB PO SCH ×2 (09:27→20:28)
[2020-11-03] MEDS: OMEPRAZOLE 20 MG CAP PO SCH (09:27)
[2020-11-03] MEDS: ASPIRIN 81 MG CHEW TABLET PO SCH (09:27)
[2020-11-03] MEDS: amLODIPine 5 MG TAB PO SCH (09:27)
[2020-11-03] MEDS: VENLAFAXINE **XR** 75MG CAPSULE PO SCH ×2 (09:27→17:17)
[2020-11-03] MEDS: ACETAMINOPHEN TAB 650MG DOSE (2X325MG) PO PRN ×3 (09:29→20:29)
[2020-11-03] MEDS ORDERED: CEFU50TA PO (10:48)
[2020-11-03] MEDS: hydrOXYzine 25 MG TAB PO PRN ×2 (12:50→20:28)
[2020-11-03 14:00] VITALS: BP 159/95
--- NOTE | 2020-11-03 18:42 | IPNPDOC ---
Date Seen The patient was seen on 11/03/20. Progress Note SUBJECTIVE: Haldol x 1 dose given at 1 AM this morning, not documented why. Calm and cooperative today. AL refused to take back due to haldol administration. D/artem PRN order. OBJECTIVE: PHYSICAL EXAMINATION: CONSTITUTIONAL:AAOx 3, NAD in bed EYES: PERRLA, EOM intact HENT, MOUTH: Normocephalic, atraumatic, moist mucous membranes NECK: SUPPLE, no JVD, no lymphadenopathy, no carotid bruit CV: sinus , S1S2 normal, no murmurs/rubs/gallops RESPIRATORY: Clear to auscultation bilaterally, no rales/rhonchi/wheezes GI: BS positive in 4 quadrants, soft, nontender, nondistended, no rebound or guarding, no organomegaly : Deferred MUSCULOSKELETAL: Normal ROM. No cyanosis, clubbing, swelling, joint deformity, extremity edema INTEGUMENTARY: Skin tear on left upper ext, very superficial- healing but tender NEUROLOGIC: resting and intention tremor-chronic. Cranial Nerves II-XII are intact, no focal deficits LABORATORY DATA: Please see below MICRO: Bcx x 2 sets NG to date UCx : E. coli IMAGING: CT head: 1. Mild diffuse parenchymal volume loss and heterogeneous low attenuation in the white matter bilaterally, unchanged from the prior exam, and probably related to chronic small vessel ischemic disease. 2. No evidence of acute infarct or hemorrhage. CXR: Persistent changes right lower lobe. Follow-up clearing recommended. CT cervical spine: 1. Rotatory subluxation at C1-C2, not seen on the recent prior CT scan. This may be related to acute ligamentous injury or chronic ligamentous laxity. There are degenerative changes at the odontoid process and anterior arch of C1. 2. No acute fractures identified. 3. Anterior fusion of C4 through C6 without evidence of complication. 4. Multilevel hypertrophic facet arthropathy. ASSESSMENT: 75-year-old female with past medical history of Covid 19 infection, hypertension, chronic nausea, hx of pulmonary coccidiomycosis, depression, hyperlipidemia, history of TIA admitted for further workup/treatment of acute metabolic encephalopathy, r/o 2/2 to UTI, sepsis, fall. PLAN: Acute metabolic encephalopathy likely 2/2 to E. coli UTI, sepsis.- resolved and at baseline -WBC wnl, afebrile, LA wnl, HR stable,UCx above -CT head neg, no neurological deficits. -On PO ceftin BID -C/w daily labs Hypokalemia, acute and likely 2/2 to dehydration- resolved -K wnl -F/u on AM labs Fall possibly 2/2 to increased unsteadiness, confusion from UTI , chronic physical deconditioned state -Much improved from before weekend. -C/w PT/OT -PT: Can return to [facility], f/u official notes Hx of COVID-19 infection -No incr SOB, changes on CXR -Positive originally on 10/07/20 and again on 10/17/20. -Last two tests on 10/24/20 and 10/31/20 negative HTN -C/w home meds IBS / lactose intolerance / chronic diarrhea/chronic nausea -C/w home meds -Modify diet here -Can add immodium if needed -Zofran, reglan. D/c compazine for now. Hx coccidiomycosis -Saturating well on RA, no SOB, denies coughing, chest pain, afebrile, not on antifungal meds -Abnormal CXR above- unchanged from prior -Per patient was diagnosed in [place], [place] before moving here in 2019 -Following with Dr. Dennis as o/p, had recent bronchoscopy in 09/2020 Urinary incontinence -C/w home meds TIA / Chronic small vessel ischemic disease -No new neuro changes -C/w ASA & statin Dementia -Still slightly confused at times- appears to be at baseline -C/w donepezil HS Depression -Stable -C/w venlafaxine DLP -C/w atorvastatin & fenofibrate GERD -PPI DVT px: -Lovenox DISPOSITION: AL refused patient back today due to haldol administration, she is currently at her baseline mentation and functionality. To return to assisted living, hopefully in the next 24 hours. VS, I&O, 24H, Fishbone Vital Signs/I&O Vital Signs Date Time Temp Pulse Resp B/P (MAP) Pulse Ox O2 Delivery O2 Flow Rate FiO2 11/03/20 14:00 97.6 96 16 159/95 (116) 99 Room Air I&O- Last 24 Hours up to 6 AM 11/03/20 06:00 Intake Total 1200 ml Balance 1200 ml Laboratory Data 24H LABS Laboratory Tests 2 11/03/20 06:00: Nucleated Red Blood Cells % (auto) 0.0, Anion Gap 8, Glomerular Filtration Rate > 60.0, Calcium Level 8.6L, Total Bilirubin 0.3, Aspartate Amino Transf (AST/SGOT) 15, Alanine Aminotransferase (ALT/SGPT) 24, Alkaline Phosphatase 69, Total Protein 6.5, Albumin 3.3, Albumin/Globulin Ratio 1.0L CBC/BMP Laboratory Tests 11/03/20 06:00 Microbiology Microbiology 10/31/20 Blood Culture - Preliminary, Resulted No Growth after 72 hours. All specime... 10/31/20 Blood Culture - Preliminary, Resulted No Growth after 72 hours. All specime... 10/31/20 Respiratory Virus Panel (PCR) (WHIT) - Final, Complete 10/31/20 Urine Culture - Final, Complete Escherichia Coli 10/31/20 Blood Culture - Preliminary, Resulted No Growth after 72 hours. All specime... Celia Steen MD November 03, 2020 18:42
[2020-11-03] MEDS: RAMELTEON 8 MG TAB (ROZEREM) PO PRN (20:28)
[2020-11-03] MEDS: DONEPEZIL 5 MG TAB PO SCH (20:29)
[2020-11-03] MEDS: ATORVASTATIN 20 MG TAB PO SCH (20:29)
[2020-11-03] MEDS: oxyBUTYnin *DITROPAN XL* 5 MG TABCR PO SCH (20:29)
[2020-11-03 22:00] VITALS: BP 153/75
[2020-11-04 06:00] VITALS: BP 130/68
[2020-11-04 06:02] LABS: HEMATOCRIT 36.1 % (36.0-47.0); MEAN CORPUSCULAR HEMOGLOBIN 33.1 pg (27.0-33.0); MEAN CORPUSCULAR HGB CONC 33.2 g/dl (32.0-36.5); MEAN CORPUSCULAR VOLUME 99.4 fl (80.0-96.0); PLATELET COUNT, AUTOMATED 359 10^3/uL (150-450); RED BLOOD COUNT 3.63 10^6/uL (4.00-5.40); WHITE BLOOD COUNT 7.2 10^3/uL (4.0-10.0)
[2020-11-04 06:23] LABS: ALBUMIN 3.4 GM/DL (3.2-5.2); ALT/SGPT 25 U/L (12-78); BILIRUBIN,TOTAL 0.3 MG/DL (0.2-1.0); BLOOD UREA NITROGEN 11 MG/DL (7-18); CARBON DIOXIDE LEVEL 28 MEQ/L (21-32); CHLORIDE LEVEL 107 MEQ/L (98-107); CREATININE FOR GFR 0.47 MG/DL (0.55-1.30); GLOMERULAR FILTRATION RATE > 60.0 (>39); GLUCOSE, FASTING 104 MG/DL (70-100); POTASSIUM SERUM 3.2 MEQ/L (3.5-5.1); SODIUM LEVEL 141 MEQ/L (136-145)
[2020-11-04] MEDS ORDERED: POTASSIUM CHLORIDE 10 MEQ SR TABLET PO ONE (08:00)
[2020-11-04] MEDS: FENOFIBRATE 145 MG TAB (TRICOR) PO SCH (09:20)
[2020-11-04] MEDS: OMEPRAZOLE 20 MG CAP PO SCH (09:20)
[2020-11-04] MEDS: ENOXAPARIN 40MG/0.4ML SYRINGE (J1650 PER 10MG) SC SCH (09:21)
[2020-11-04] MEDS: VENLAFAXINE **XR** 75MG CAPSULE PO SCH ×2 (09:22→16:50)
[2020-11-04] MEDS: CEFUROXIME 500 MG TAB PO SCH ×2 (09:22→20:36)
[2020-11-04] MEDS: ASPIRIN 81 MG CHEW TABLET PO SCH (09:22)
[2020-11-04] MEDS: amLODIPine 5 MG TAB PO SCH (09:22)
[2020-11-04] MEDS: hydrOXYzine 25 MG TAB PO PRN ×2 (13:14→20:36)
[2020-11-04 14:00] VITALS: BP_SYST 130; BP_SYST 145; BP_DIAS 55; BP_DIAS 90
[2020-11-04] MEDS ORDERED: hydrOXYzine 25 MG TAB PO ONE (14:30)
--- NOTE | 2020-11-04 19:21 | IPNPDOC ---
Subjective Date Seen The patient was seen on 11/04/20. Subjective Chief Complaint/HPI Mrs. Fisher is a 75 year old female from [facility] with dementia who is here with AMS 2/2 E.coli UTI. This morning, she denies any chest pain or dyspnea. She felt ready to return back to [facility], but her COVID test returned positive. She had first tested positive on October 07. Currently not having any symptoms, but she cannot go back to [facility] until she tests negative. Next test can be obtained on Tuesday. Patient will be made [facility] Objective Physical Examination General Exam: Positive: Alert, Cooperative Eye Exam: Negative: Sclera icteric Chest Exam: Positive: Clear to auscultation Heart Exam: Positive: Rate Normal, Regular Rhythm Abdomen Exam: Positive: Normal bowel sounds, Soft; Negative: Tenderness Extremity Exam: Negative: Edema Neuro Exam: Positive: Normal Speech Psych Exam: Positive: Anxiety Assessment /Plan Assessment Mrs. Fisher is a 75 year old female from [facility] with dementia who is here with AMS 2/2 E.coli UTI. This had resolved and patient was supposed to return back to [facility], but then tested positive for COVID 19. Patient has no respiratory symptoms. Patient first tested positive about a month ago. Patient can be tested again this Tuesday. Otherwise, patient will be made [facility]. Plan/VTE VTE Prophylaxis Ordered?: Yes Plan 1. Acute metabolic encephalopathy 2/2 E.coli UTI -Resolved -Continue with Ceftin BID until 11/05/2020 2. Hypokalemia -Resolved 3. Fall 2/2 increased unsteadiness and confusion from UTI -Physical therapy worked with patient. Patient to return to [facility] 4. History of COVID infection -Tested positive on 10/07/20 -Currently no symptoms, can be tested again on Tuesday 5. Hypertension -Continue amlodipine 6. IBS -Continue with bowel regimen 7. History of coccidiomycosis -Saturating well on RA, no SOB, denies coughing, chest pain, afebrile, not on antifungal meds -Abnormal CXR, unchanged from prior -Per patient, she was diagnosed in [place], [place] before moving here in 2019 -Following with Dr. Dennis as o/p, had recent bronchoscopy in 09/2020 8. Dementia -At baseline -Continue with Donepezil 9. Depression -Continue with venlafaxine 10. Dyslipidemia -Continue with atorvastatin and fenofibrate 11. GERD -Continue with PPI 12. DVT ppx -Continue with Lovenox Disposition: Patient will need to wait for negative test before going back to [facility]. Next test can be obtained on Tuesday. Until then, patient will be made [facility] VS, I&O, 24H, Fishbone Vital Signs/I&O Vital Signs Date Time Temp Pulse Resp B/P (MAP) Pulse Ox O2 Delivery O2 Flow Rate FiO2 11/04/20 14:00 98.5 98 18 145/90 (108) 98 Room Air I&O- Last 24 Hours up to 6 AM 11/04/20 06:00 Intake Total 720 ml Balance 720 ml Laboratory Data 24H LABS Laboratory Tests 2 11/04/20 05:50: Nucleated Red Blood Cells % (auto) 0.0, Anion Gap 6L, Glomerular Filtration Rate > 60.0, Calcium Level 9.0, Total Bilirubin 0.3, Aspartate Amino Transf (AST/SGOT) 17, Alanine Aminotransferase (ALT/SGPT) 25, Alkaline Phosphatase 65, Total Protein 7.0, Albumin 3.4, Albumin/Globulin Ratio 0.9L 11/04/20 10:08: Coronavirus (COVID-19)(PCR) POSITIVEA CBC/BMP Laboratory Tests 11/04/20 05:50 Microbiology Microbiology 10/31/20 Blood Culture - Preliminary, Resulted No Growth after 72 hours. All specime... 10/31/20 Blood Culture - Preliminary, Resulted No Growth after 72 hours. All specime... 10/31/20 Respiratory Virus Panel (PCR) (WHIT) - Final, Complete 10/31/20 Urine Culture - Final, Complete Escherichia Coli 10/31/20 Blood Culture - Preliminary, Resulted No Growth after 72 hours. All specime... PAO WILLS DO November 04, 2020 19:21
[2020-11-04] MEDS: oxyBUTYnin *DITROPAN XL* 5 MG TABCR PO SCH (20:36)
[2020-11-04] MEDS: DONEPEZIL 5 MG TAB PO SCH (20:36)
[2020-11-04] MEDS: RAMELTEON 8 MG TAB (ROZEREM) PO PRN (20:36)
[2020-11-04] MEDS: ATORVASTATIN 20 MG TAB PO SCH (20:36)
[2020-11-04] MEDS: ACETAMINOPHEN TAB 650MG DOSE (2X325MG) PO PRN (20:37)
[2020-11-05 05:51] LABS: HEMATOCRIT 36.8 % (36.0-47.0); HEMOGLOBIN 12.1 g/dl (12.0-15.5); MEAN CORPUSCULAR HEMOGLOBIN 32.6 pg (27.0-33.0); MEAN CORPUSCULAR HGB CONC 32.9 g/dl (32.0-36.5); MEAN CORPUSCULAR VOLUME 99.2 fl (80.0-96.0); PLATELET COUNT, AUTOMATED 381 10^3/uL (150-450); RED BLOOD COUNT 3.71 10^6/uL (4.00-5.40); WHITE BLOOD COUNT 6.2 10^3/uL (4.0-10.0)
[2020-11-05 06:00] VITALS: BP 145/73
[2020-11-05 06:24] LABS: BLOOD UREA NITROGEN 14 MG/DL (7-18); CALCIUM LEVEL 10.2 MG/DL (8.8-10.2); CARBON DIOXIDE LEVEL 28 MEQ/L (21-32); CHLORIDE LEVEL 105 MEQ/L (98-107); CREATININE FOR GFR 0.49 MG/DL (0.55-1.30); GLOMERULAR FILTRATION RATE > 60.0 (>39); GLUCOSE, FASTING 109 MG/DL (70-100); POTASSIUM SERUM 3.7 MEQ/L (3.5-5.1); SODIUM LEVEL 141 MEQ/L (136-145)
[2020-11-05] MEDS: FENOFIBRATE 145 MG TAB (TRICOR) PO SCH (09:46)
[2020-11-05] MEDS: OMEPRAZOLE 20 MG CAP PO SCH (09:46)
[2020-11-05] MEDS: ENOXAPARIN 40MG/0.4ML SYRINGE (J1650 PER 10MG) SC SCH (09:46)
[2020-11-05] MEDS: ASPIRIN 81 MG CHEW TABLET PO SCH (09:47)
[2020-11-05] MEDS: amLODIPine 5 MG TAB PO SCH (09:47)
[2020-11-05] MEDS: hydrOXYzine 25 MG TAB PO PRN ×2 (09:47→20:50)
[2020-11-05] MEDS: VENLAFAXINE **XR** 75MG CAPSULE PO SCH ×2 (09:47→16:27)
[2020-11-05] MEDS: CEFUROXIME 500 MG TAB PO SCH ×2 (09:47→20:51)
[2020-11-05] MEDS: oxyBUTYnin *DITROPAN XL* 5 MG TABCR PO SCH (20:50)
[2020-11-05] MEDS: RAMELTEON 8 MG TAB (ROZEREM) PO PRN (20:51)
[2020-11-05] MEDS: DONEPEZIL 5 MG TAB PO SCH (20:51)
[2020-11-05] MEDS: ATORVASTATIN 20 MG TAB PO SCH (20:51)
[2020-11-05] MEDS: ACETAMINOPHEN TAB 650MG DOSE (2X325MG) PO PRN (20:52)
[2020-11-06 06:00] VITALS: BP 143/73
[2020-11-06 06:32] LABS: HEMATOCRIT 38.4 % (36.0-47.0); HEMOGLOBIN 12.4 g/dl (12.0-15.5); MEAN CORPUSCULAR HEMOGLOBIN 32.6 pg (27.0-33.0); MEAN CORPUSCULAR HGB CONC 32.3 g/dl (32.0-36.5); MEAN CORPUSCULAR VOLUME 101.1 fl (80.0-96.0); PLATELET COUNT, AUTOMATED 406 10^3/uL (150-450)
[2020-11-06 06:48] LABS: BLOOD UREA NITROGEN 15 MG/DL (7-18); CALCIUM LEVEL 9.8 MG/DL (8.8-10.2); CARBON DIOXIDE LEVEL 28 MEQ/L (21-32); CHLORIDE LEVEL 105 MEQ/L (98-107); CREATININE FOR GFR 0.56 MG/DL (0.55-1.30); GLOMERULAR FILTRATION RATE > 60.0 (>39); GLUCOSE, FASTING 97 MG/DL (70-100); SODIUM LEVEL 140 MEQ/L (136-145)
[2020-11-06] MEDS: ENOXAPARIN 40MG/0.4ML SYRINGE (J1650 PER 10MG) SC SCH (08:26)
[2020-11-06] MEDS: VENLAFAXINE **XR** 75MG CAPSULE PO SCH ×2 (08:26→17:07)
[2020-11-06] MEDS: FENOFIBRATE 145 MG TAB (TRICOR) PO SCH (08:26)
[2020-11-06] MEDS: OMEPRAZOLE 20 MG CAP PO SCH (08:26)
[2020-11-06] MEDS: ASPIRIN 81 MG CHEW TABLET PO SCH (08:26)
[2020-11-06] MEDS: amLODIPine 5 MG TAB PO SCH (08:28)
[2020-11-06] MEDS: ONDANSETRON 4 MG ORAL DISINTEGRATING TAB PO PRN (08:52)
[2020-11-06] MEDS: METOCLOPRAMIDE 10 MG TAB PO PRN (11:22)
[2020-11-06] MEDS: hydrOXYzine 25 MG TAB PO PRN (14:08)
[2020-11-06 16:27] VITALS: BP 172/88
[2020-11-06] MEDS: ACETAMINOPHEN TAB 650MG DOSE (2X325MG) PO PRN (17:07)
--- NOTE | 2020-11-06 17:23 | ECGEPIP ---
[facility] Test Date: 2020-11-06 Pat Name: TAY SOSA Department: Room: [place] [address] Gender: Female Digital Intern: IRASEMA : 1945 Requested By: PAO Castillo Order Number: [id number] Reading MD: Alverto Russell Measurements Intervals [place] Rate: 100 P: 36 [place]: 146 QRS: 37 QRSD: 94 T: -78 QT: 384 QTc: 495 Interpretive Statements Sinus rhythm with premature atrial complexes Left ventricular hypertrophy with repolarization abnormality No significant change when compared to prior tracing of 10/31/2020 Electronically Signed on 11-06-2020 17:23:18 EDT by Alverto Russell
--- NOTE | 2020-11-06 19:02 | REPVR ---
PROCEDURE INFORMATION: Exam: CT Head Without Contrast Exam date and time: 11/06/2020 5:55 PM Age: 75 years old Clinical indication: Injury or trauma; Fall; Blunt trauma (contusions or hematomas) TECHNIQUE: Imaging protocol: Computed tomography of the head without contrast. Radiation optimization: All CT scans at this facility use at least one of these dose optimization techniques: automated exposure control; mA and/or kV adjustment per patient size (includes targeted exams where dose is matched to clinical indication); or iterative reconstruction. COMPARISON: CT Head without contrast 10/31/2020 5:29 AM FINDINGS: Brain: There is mild parenchymal volume loss. White matter changes are demonstrated in the subcortical, centrum semiovale and periventricular white matter consistent with chronic age related small vessel ischemic changes. 2.7 mm punctate density demonstrated in the left temporal lobe may represent a small focus of calcification. Possibility of a small focal hemorrhage not excluded. Further evaluation with thin section imaging suggested. Cerebral ventricles: The degree of ventricular dilatation is normal for age and/or degree of atrophy present. Paranasal sinuses: Visualized sinuses are unremarkable. No fluid levels. Mastoid air cells: Visualized mastoid air cells are well aerated. Bones/joints: Unremarkable. No acute fracture. Soft tissues: Unremarkable. IMPRESSION: 1. There is mild parenchymal volume loss. White matter changes are demonstrated in the subcortical, centrum semiovale and periventricular white matter consistent with chronic age related small vessel ischemic changes. 2. The degree of ventricular dilatation is normal for age and/or degree of atrophy present. 3. 2.7 mm punctate density in the left temporal lobe as described above. Differential diagnosis includes a small focus of calcification and less likely a small focal hemorrhage. Further evaluation with thin section imaging suggested. A critical call has been made to speak with the ordering physician/practitioner. This report will be amended once consultation has occurred. Electronically signed by: Pete Falk On 11/06/2020 19:02:31 PM
--- NOTE | 2020-11-06 19:05 | REPVR ---
PROCEDURE INFORMATION: Exam: CT Thoracic Spine Without Contrast Exam date and time: 11/06/2020 5:55 PM Age: 75 years old Clinical indication: Injury or trauma; Fall; Blunt trauma (contusions or hematomas) TECHNIQUE: Imaging protocol: Computed tomography images of the thoracic spine without contrast. Radiation optimization: All CT scans at this facility use at least one of these dose optimization techniques: automated exposure control; mA and/or kV adjustment per patient size (includes targeted exams where dose is matched to clinical indication); or iterative reconstruction. COMPARISON: No relevant prior studies available. FINDINGS: Vertebrae: Age indeterminate compression deformity at T12. Clinical correlation to exclude acute fracture suggested. Status post lower cervical anterior interbody fusion. Discs/Spinal canal/Neural foramina: No significant disc protrusion. No severe spinal canal stenosis. No significant neural foraminal narrowing. Soft tissues: Unremarkable. Lymph nodes: Calcified right hilar lymph nodes. Lungs: Calcified granuloma right lower lobe. IMPRESSION: 1. Age indeterminate compression deformity at T12. Clinical correlation to exclude acute fracture suggested. 2. Findings consistent with remote intrathoracic granulomatous infection. Electronically signed by: Pete Falk On 11/06/2020 19:05:23 PM
[2020-11-06] MEDS: oxyBUTYnin *DITROPAN XL* 5 MG TABCR PO SCH (20:39)
[2020-11-06] MEDS: RAMELTEON 8 MG TAB (ROZEREM) PO PRN (20:40)
[2020-11-06] MEDS: DONEPEZIL 5 MG TAB PO SCH (20:40)
[2020-11-06] MEDS: ATORVASTATIN 20 MG TAB PO SCH (20:40)
[2020-11-06] MEDS: METOPROLOL TART 25 MG TABLET PO SCH (20:40)
[2020-11-06 22:00] VITALS: BP 160/82
[2020-11-07] MEDS: ACETAMINOPHEN TAB 650MG DOSE (2X325MG) PO PRN ×2 (00:06→17:49)
[2020-11-07] MEDS: hydrOXYzine 25 MG TAB PO PRN ×2 (02:22→14:45)
[2020-11-07 06:00] VITALS: BP 149/74
[2020-11-07 07:51] LABS: HEMOGLOBIN 12.5 g/dl (12.0-15.5); MEAN CORPUSCULAR HGB CONC 32.1 g/dl (32.0-36.5); MEAN CORPUSCULAR VOLUME 99.7 fl (80.0-96.0); PLATELET COUNT, AUTOMATED 400 10^3/uL (150-450); RED BLOOD COUNT 3.91 10^6/uL (4.00-5.40)
[2020-11-07 08:13] LABS: BLOOD UREA NITROGEN 16 MG/DL (7-18); CALCIUM LEVEL 9.8 MG/DL (8.8-10.2); CARBON DIOXIDE LEVEL 30 MEQ/L (21-32); CHLORIDE LEVEL 102 MEQ/L (98-107); GLOMERULAR FILTRATION RATE > 60.0 (>39); GLUCOSE, FASTING 102 MG/DL (70-100); POTASSIUM SERUM 3.7 MEQ/L (3.5-5.1); SODIUM LEVEL 139 MEQ/L (136-145)
--- NOTE | 2020-11-07 08:50 | REPVR ---
PROCEDURE INFORMATION: Exam: CT Head Without Contrast Exam date and time: 11/07/2020 7:20 AM Age: 75 years old Clinical indication: Abnormal findings; Abnormal radiologic findings of head/skull; Intracranial mass/space-occupying lesion; Additional info: Left temporal lobe density, hemorrhage? TECHNIQUE: Imaging protocol: Computed tomography of the head without contrast. Radiation optimization: All CT scans at this facility use at least one of these dose optimization techniques: automated exposure control; mA and/or kV adjustment per patient size (includes targeted exams where dose is matched to clinical indication); or iterative reconstruction. COMPARISON: 1. CT Head without contrast 11/06/2020 6:[address] Head without contrast 10/04/2020 6:13:16 PM 3. MRI-Brain without Contrast 06/21/2020 9:12:33 PM FINDINGS: Brain: There is mild, diffuse parenchymal volume loss. There is heterogeneity of the white matter attenuation, most consistent with moderate chronic white matter ischemic changes. There is a persistent, small hyperdense focus in the left temporal lobe at the site of concern on the most recent prior CT scan, measuring 3 x 4 mm , best seen on the 1 mm images (images 32-34 of series 201). This may represent a small focus of calcification or a small focus of acute blood. It is not definitely seen on the prior CT scans of October 31, 2020 or October 04, 2020. No definite abnormality is seen at this site on the prior MRI of June 21, 2020. No additional other sites suspicious for hemorrhage are identified. No parenchymal mass lesions identified. Cerebral ventricles: The ventricular system demonstrates mild diffuse compensatory enlargement. Paranasal sinuses: The visualized paranasal sinuses are clear. Mastoid air cells: The mastoid air cells are clear. Bones/joints: No acute fractures of the skull are identified. Soft tissues: The soft tissues appear unremarkable. Other findings: IMPRESSION: 1. A small hyperdense focus is confirmed in the left temporal lobe. As it was not definitely seen on the prior exams, it is suspicious for a small acute hemorrhage, but it is still possible it represents a focus of calcification that was not seen previously due to slice selection and its small size. 2. Mild diffuse parenchymal volume loss and heterogeneous low attenuation in the white matter, most consistent with chronic small vessel ischemic disease, similar to the prior exams. Electronically signed by: Lissa Benavides On 11/07/2020 08:50:25 AM
[2020-11-07] MEDS: FENOFIBRATE 145 MG TAB (TRICOR) PO SCH (08:56)
[2020-11-07] MEDS: OMEPRAZOLE 20 MG CAP PO SCH (08:56)
[2020-11-07] MEDS: METOPROLOL TART 25 MG TABLET PO SCH ×2 (08:56→21:46)
[2020-11-07] MEDS: VENLAFAXINE **XR** 75MG CAPSULE PO SCH ×2 (08:56→17:49)
[2020-11-07] MEDS: amLODIPine 5 MG TAB PO SCH (08:56)
[2020-11-07] MEDS: ONDANSETRON 4 MG ORAL DISINTEGRATING TAB PO PRN (11:06)
--- NOTE | 2020-11-07 11:42 | IPNPDOC ---
Subjective Date Seen The patient was seen on 11/07/20. Subjective Chief Complaint/HPI Mrs. Fisher is a 75 year old female from [facility] with dementia who is here with AMS 2/2 E.coli UTI. Yesterday, she was trying to sit down when she missed the bed and landed on the floor. Patient denies head strike and was mostly complaining of upper back pain and left arm pain. CT thoracic spine and CT head ordered. Otherwise, she had persistent anxiety and was concerned about palpitations. EKG demonstrated frequent PAC and a qTC of 490. Started patient on Lopressor. Later that night CT head returned for a small density that could either be c alcification or hemorrhage. Recommended repeat imaging with thin sections. Repeated imaging this morning, and still demonstrated the small density. When I saw the patient, she was feeling better. She had bruises and scrapes of left arm. Otherwise, she has no neuro deficits. CN3-12 grossly intact, Muscle strength 5/5 bilaterally in upper and lower extremities, finger to nose intact. I reached out to neurology. Unlikely a bleed but recommended and MRI to help rule out bleed. Objective Physical Examination General Exam: Positive: Alert, Cooperative Eye Exam: Negative: Sclera icteric Chest Exam: Positive: Clear to auscultation Heart Exam: Positive: Rate Normal, Regular Rhythm Abdomen Exam: Positive: Normal bowel sounds, Soft; Negative: Tenderness Extremity Exam: Negative: Edema Neuro Exam: Positive: Normal Speech, Cranial Nerves 3-12 NL Psych Exam: Positive: Anxiety Assessment /Plan Assessment Mrs. Fisher is a 75 year old female from [facility] with dementia who is here with AMS 2/2 E.coli UTI. This had resolved and patient was supposed to return back to [facility], but then tested positive for COVID 19. Patient has no respiratory symptoms. Patient first tested positive about a month ago. Patient can be tested again on Tuesday. Otherwise, patient had a fall and a CT head was obtained. Demonstrated a small density that may either be calcification or hemorrhage. Spoke with neurology, Dr. Lyon. Unlikely hemorrhage, but can r/o with MRI. Will obtain MRI today. Plan/VTE VTE Prophylaxis Ordered?: Yes Plan 1. Acute metabolic encephalopathy 2/2 E.coli UTI -Resolved -Continue with Ceftin BID until 11/05/2020 2. Hypokalemia -Resolved 3. Fall 2/2 increased unsteadiness and confusion from UTI -Physical therapy worked with patient. Patient to return to [place] 4. History of COVID infection -Tested positive on 10/07/20 -Currently no symptoms, can be tested again on Tuesday 5. Hypertension -Continue amlodipine 6. IBS -Continue with bowel regimen 7. History of coccidiomycosis -Saturating well on RA, no SOB, denies coughing, chest pain, afebrile, not on antifungal meds -Abnormal CXR, unchanged from prior -Per patient, she was diagnosed in [place], [place] before moving here in 2019 -Following with Dr. Dennis as o/p, had recent bronchoscopy in 09/2020 8. Dementia -At baseline -Continue with Donepezil 9. Depression -Continue with venlafaxine 10. Dyslipidemia -Continue with atorvastatin and fenofibrate 11. GERD -Continue with PPI 12. DVT ppx -Continue with Lovenox Disposition: Pending MRI results. Patient will need COVID 19 PCR test on Tuesday. VS, I&O, 24H, Fishbone Vital Signs/I&O Vital Signs Date Time Temp Pulse Resp B/P (MAP) Pulse Ox O2 Delivery O2 Flow Rate FiO2 11/07/20 08:56 84 130/80 11/07/20 06:00 97.2 18 93 Room Air I&O- Last 24 Hours up to 6 AM 11/07/20 06:00 Intake Total 1460 ml Output Total 0 ml Balance 1460 ml Laboratory Data 24H LABS Laboratory Tests 2 11/07/20 07:17: Nucleated Red Blood Cells % (auto) 0.0, Anion Gap 7L, Glomerular Filtration Rate > 60.0, Calcium Level 9.8 CBC/BMP Laboratory Tests 11/07/20 07:17 Microbiology Microbiology 10/31/20 Blood Culture - Final, Complete NO GROWTH AFTER 5 DAYS 10/31/20 Blood Culture - Final, Complete NO GROWTH AFTER 5 DAYS 10/31/20 Respiratory Virus Panel (PCR) (WHIT) - Final, Complete 10/31/20 Urine Culture - Final, Complete Escherichia Coli 10/31/20 Blood Culture - Final, Complete NO GROWTH AFTER 5 DAYS PAO WILLS DO November 07, 2020 11:42
[2020-11-07] MEDS: METOCLOPRAMIDE 10 MG TAB PO PRN (13:03)
--- NOTE | 2020-11-07 20:10 | REPVR ---
PROCEDURE INFORMATION: Exam: MR Head Without Contrast Exam date and time: 11/07/2020 7:32 PM Age: 75 years old Clinical indication: Abnormal findings; Abnormal radiologic findings of head/skull; Intracranial mass/space-occupying lesion; Additional info: Evaluation of possible hemorrhage vs calcification on CT TECHNIQUE: Imaging protocol: MR of the head without contrast. COMPARISON: MRI-Brain without Contrast 06/21/2020 9:12 PM FINDINGS: Major vascular flow voids at the skull base are preserved. No extra-axial fluid collection. Nonspecific white matter gliosis, probable chronic microvascular ischemia. There is more confluent white matter hyperintensity involving the bilateral temporal lobes. There is susceptibility at the left temporal lobe in region small hyperdense focus from CT suspicious for hemorrhage. There are numerous scattered additional foci of susceptibility likely representing prior microhemorrhage. No diffusion restriction. Visualized paranasal sinuses and mastoid air cells are clear. IMPRESSION: 1. There is signal blooming at the left temporal lobe in region of hyperdensity visualized on CT examination compatible with small hemorrhagic focus. 2. There is prominent white matter hyperintensity involving the bilateral temporal lobes, greater than expected for chronic microvascular ischemic disease. Differential considerations include infectious/inflammatory process or infiltrative neoplasia. Follow-up is recommended. Electronically signed by: Balbir Benavides On 11/07/2020 20:09:42 PM
[2020-11-07] MEDS: RAMELTEON 8 MG TAB (ROZEREM) PO PRN (21:45)
[2020-11-07] MEDS: ATORVASTATIN 20 MG TAB PO SCH (21:46)
[2020-11-07] MEDS: DONEPEZIL 5 MG TAB PO SCH (21:46)
[2020-11-07] MEDS: oxyBUTYnin *DITROPAN XL* 5 MG TABCR PO SCH (21:46)
--- NOTE | 2020-11-08 01:49 | IPNPDOC ---
Date Seen The patient was seen on 11/08/20. Progress Note Called by RN, informed of MRI brain results. S/p unwitnessed fall on 11/06/20. Examined patient at bedside. Alert and oriented to person and place. Appears as baseline level of mentation. Hx dementia. Neuro exam completed. No nystagmus. CN2-12 intact. 5/5 strength in all 4 extremities. Speech clear. No vision changes. No unsteady gait. MRI brain wo contrast (11/07/20): IMPRESSION: 1. There is signal blooming at the left temporal lobe in region of hyperdensity visualized on CT examination compatible with small hemorrhagic focus. 2. There is prominent white matter hyperintensity involving the bilateral temporal lobes, greater than expected for chronic microvascular ischemic disease. Differential considerations include infectious/inflammatory process or infiltrative neoplasia. Follow-up is recommended. Discussed findings with Dr. Lyon which were concerning for ICH. Recommends holding aspirin (has been already DC). Recommends to repeat CT head in am. O rdered study. VS, I&O, 24H, Fishbone Vital Signs/I&O Vital Signs Date Time Temp Pulse Resp B/P (MAP) Pulse Ox O2 Delivery O2 Flow Rate FiO2 11/07/20 21:46 82 128/63 11/07/20 06:00 97.2 18 93 Room Air I&O- Last 24 Hours up to 6 AM 11/08/20 06:00 Intake Total 1200 ml Output Total 0 ml Balance 1200 ml Laboratory Data 24H LABS Laboratory Tests 2 11/07/20 07:17: Nucleated Red Blood Cells % (auto) 0.0, Anion Gap 7L, Glomerular Filtration Rate > 60.0, Calcium Level 9.8 CBC/BMP Laboratory Tests 11/07/20 07:17 Microbiology Microbiology 10/31/20 Blood Culture - Final, Complete NO GROWTH AFTER 5 DAYS 10/31/20 Blood Culture - Final, Complete NO GROWTH AFTER 5 DAYS 10/31/20 Respiratory Virus Panel (PCR) (WHIT) - Final, Complete 10/31/20 Urine Culture - Final, Complete Escherichia Coli 10/31/20 Blood Culture - Final, Complete NO GROWTH AFTER 5 DAYS YADI HERNÁNDEZ MD November 08, 2020 01:49
[2020-11-08] MEDS: ACETAMINOPHEN TAB 650MG DOSE (2X325MG) PO PRN ×4 (02:52→22:11)
[2020-11-08] MEDS: hydrOXYzine 25 MG TAB PO PRN ×2 (02:52→16:56)
[2020-11-08 06:00] VITALS: BP 132/62
[2020-11-08 06:59] LABS: HEMOGLOBIN 12.3 g/dl (12.0-15.5); MEAN CORPUSCULAR HEMOGLOBIN 32.5 pg (27.0-33.0); MEAN CORPUSCULAR HGB CONC 32.4 g/dl (32.0-36.5); MEAN CORPUSCULAR VOLUME 100.5 fl (80.0-96.0); PLATELET COUNT, AUTOMATED 368 10^3/uL (150-450); RED BLOOD COUNT 3.78 10^6/uL (4.00-5.40)
[2020-11-08 07:39] LABS: BLOOD UREA NITROGEN 14 MG/DL (7-18); CALCIUM LEVEL 9.9 MG/DL (8.8-10.2); CARBON DIOXIDE LEVEL 31 MEQ/L (21-32); CHLORIDE LEVEL 101 MEQ/L (98-107); CREATININE FOR GFR 0.56 MG/DL (0.55-1.30); GLOMERULAR FILTRATION RATE > 60.0 (>39); GLUCOSE, FASTING 108 MG/DL (70-100); POTASSIUM SERUM 3.5 MEQ/L (3.5-5.1); SODIUM LEVEL 140 MEQ/L (136-145)
--- NOTE | 2020-11-08 08:11 | REPVR ---
PROCEDURE INFORMATION: Exam: CT Head Without Contrast Exam date and time: 11/08/2020 7:51 AM Age: 75 years old Clinical indication: Condition or disease; Other: F/u L temporal hemorrhagic focus, seen on mri, S/P fall TECHNIQUE: Imaging protocol: Computed tomography of the head without contrast. Radiation optimization: All CT scans at this facility use at least one of these dose optimization techniques: automated exposure control; mA and/or kV adjustment per patient size (includes targeted exams where dose is matched to clinical indication); or iterative reconstruction. COMPARISON: CT Head without contrast 11/07/2020 8:01 AM FINDINGS: Brain: Patient shows a small high density area in the left temporal lobe on prior study which is best seen on the 1 mm images and only faintly seen on the 5 mm images. This is barely visible on the coronal 5 mm images of the prior study. This likely faintly identified in the same location on the current coronal images but is not well seen on the axial images which are 5 mm thickness on today's examination. Consider follow-up examination at 1 mm images to better compare this high density. There are patchy low-density areas scattered in the brain compatible with microvascular change. Cerebral ventricles: No ventriculomegaly. Paranasal sinuses: Visualized sinuses are unremarkable. No fluid levels. Mastoid air cells: No significant mastoid effusion. Bones/joints: No acute fracture. Soft tissues: Unremarkable as visualized. IMPRESSION: Small high density area which may be calcification or hemorrhage in left temporal lobe is not well visualized on current study which is performed at 5 mm. This high density was best seen on the prior 1 mm images. Consider follow-up study at 1 mm axial thickness to better compare to the prior study. Electronically signed by: Amber Joseph On 11/08/2020 08:11:01 AM
[2020-11-08] MEDS: FENOFIBRATE 145 MG TAB (TRICOR) PO SCH (08:14)
[2020-11-08] MEDS: VENLAFAXINE **XR** 75MG CAPSULE PO SCH ×2 (08:14→16:57)
[2020-11-08] MEDS: OMEPRAZOLE 20 MG CAP PO SCH (08:14)
[2020-11-08] MEDS: METOPROLOL TART 25 MG TABLET PO SCH ×2 (08:15→22:10)
[2020-11-08] MEDS: amLODIPine 5 MG TAB PO SCH (08:15)
--- NOTE | 2020-11-08 14:35 | IPNPDOC ---
Subjective Date Seen The patient was seen on 11/08/20. Subjective Chief Complaint/HPI Mrs. Fisher is a 75 year old female from [facility] with dementia who is here with AMS 2/2 E.coli UTI. Last night, MRI results returned reporting that the density was consistent with the bleed. Night attending reached out to neurology, Dr. Lyon. Recommended repeat CT head in the morning. when I saw patient in the morning, she said she was fine. Denied chest pain or dyspnea. Repeated the CT head, but the image slices were 5mm. Recommended 1mm slices. Ordered for CT head with 1mm slices as the density was not seen very well with 5mm slices. Radiologist re- read the images and wrote an addendum. Addendum won't be updated until Tuesday due to the holiday. We have a faxed copy here. I have retyped it into this note seen below Addendum by Anand Henry 1 mm thick slice images have been evaluated and again demonstrate a punctate focal area of density in the left temporal lobe which is unchanged in appearance and certainly without increase in size or surrounding changes to suggest increased trauma/pathology. Findings likely represents a small focal area of chronic calcification. Further follow up is unnecessary unless patient's symptoms deteriorate. Otherwise, I reached out to neurology, Dr. Lyon and let him know what the radiologist read. Dr. Lyon saw that the patient has amyloid angiopathy. The density is a micro bleed, but it is small. There is nothing to do about it at this time. Recommending no anticoagulation and no antiplatelet agents at this time. Antiplatelet agents will have to be re-evaluated in a couple of weeks to a few months as patient has history of TIA. The risks vs benefits will need to be weighed on antiplatelet agents. No further imaging is needed unless patient's symptoms deteriorate. Objective Physical Examination General Exam: Positive: Alert, Cooperative Eye Exam: Negative: Sclera icteric Chest Exam: Positive: Clear to auscultation Heart Exam: Positive: Rate Normal, Regular Rhythm Abdomen Exam: Positive: Normal bowel sounds, Soft; Negative: Tenderness Extremity Exam: Negative: Edema Neuro Exam: Positive: Normal Speech, Cranial Nerves 3-12 NL Psych Exam: Positive: Anxiety Assessment /Plan Assessment Mrs. Fisher is a 75 year old female from [facility] with dementia who is here with AMS 2/2 E.coli UTI. This had resolved and patient was supposed to return back to [facility], but then tested positive for COVID 19. Patient has no respiratory symptoms. Patient first tested positive about a month ago. Patient can be tested again on Tuesday. Patient has amyloid angiopathy and they are prone to microbleeds. Patient should not be on anticoagulation unless there is a strong indication for it such as in secondary prevention in CAD. For now, we will hold aspirin. The risks vs benefits of aspirin in TIA will have to be revisited in the next few weeks/months. Plan/VTE VTE Prophylaxis Ordered?: Yes Plan 1. Acute metabolic encephalopathy 2/2 E.coli UTI -Resolved -Continue with Ceftin BID until 11/05/2020 2. Hypokalemia -Resolved 3. Fall 2/2 increased unsteadiness and confusion from UTI -Physical therapy worked with patient. [facility] 4. History of COVID infection -Tested positive on 10/07/20 -Currently no symptoms, can be tested again on Tuesday 5. Hypertension -Continue amlodipine 6. IBS -Continue with bowel regimen 7. History of coccidiomycosis -Saturating well on RA, no SOB, denies coughing, chest pain, afebrile, not on antifungal meds -Abnormal CXR, unchanged from prior -Per patient, she was diagnosed in [place], [place] before moving here in 2019 -Following with Dr. Dennis as o/p, had recent bronchoscopy in 09/2020 8. Dementia -At baseline -Continue with Donepezil 9. Depression -Continue with venlafaxine 10. Dyslipidemia -Continue with atorvastatin and fenofibrate 11. GERD -Continue with PPI 12. Amyloid angiopathy with microbleeding -Patient's with amyloid angiopathy are prone to microbleeds -This microbleed is small. Neurology does not recommend any more imaging for it. -No anticoagulation or antiplatelet agents unless if there is a strong indication for it such as secondary prevention in patients with CAD 13. DVT ppx -Continue with Lovenox Disposition: Patient is medically cleared to return to [facility]. Patient is ALC status. VS, I&O, 24H, Fishbone Vital Signs/I&O Vital Signs Date Time Temp Pulse Resp B/P (MAP) Pulse Ox O2 Delivery O2 Flow Rate FiO2 11/08/20 08:15 71 161/80 11/08/20 06:00 98.3 18 95 Room Air I&O- Last 24 Hours up to 6 AM 11/08/20 06:00 Intake Total 1740 ml Output Total 0 ml Balance 1740 ml Laboratory Data 24H LABS Laboratory Tests 2 11/08/20 06:44: Nucleated Red Blood Cells % (auto) 0.0, Anion Gap 8, Glomerular Filtration Rate > 60.0, Calcium Level 9.9 CBC/BMP Laboratory Tests 11/08/20 06:44 Microbiology Microbiology 10/31/20 Blood Culture - Final, Complete NO GROWTH AFTER 5 DAYS 10/31/20 Blood Culture - Final, Complete NO GROWTH AFTER 5 DAYS 10/31/20 Respiratory Virus Panel (PCR) (WHIT) - Final, Complete 10/31/20 Urine Culture - Final, Complete Escherichia Coli 10/31/20 Blood Culture - Final, Complete NO GROWTH AFTER 5 DAYS PAO WILLS DO November 08, 2020 14:35
[2020-11-08] MEDS: RAMELTEON 8 MG TAB (ROZEREM) PO PRN (22:09)
[2020-11-08] MEDS: oxyBUTYnin *DITROPAN XL* 5 MG TABCR PO SCH (22:10)
[2020-11-08] MEDS: DONEPEZIL 5 MG TAB PO SCH (22:10)
[2020-11-08] MEDS: ATORVASTATIN 20 MG TAB PO SCH (22:11)
[2020-11-09] MEDS: ACETAMINOPHEN TAB 650MG DOSE (2X325MG) PO PRN ×3 (02:24→20:47)
[2020-11-09 06:00] VITALS: BP 122/58
[2020-11-09 06:20] LABS: HEMOGLOBIN 12.7 g/dl (12.0-15.5); MEAN CORPUSCULAR HGB CONC 32.6 g/dl (32.0-36.5); MEAN CORPUSCULAR VOLUME 101.3 fl (80.0-96.0); PLATELET COUNT, AUTOMATED 385 10^3/uL (150-450); RED BLOOD COUNT 3.85 10^6/uL (4.00-5.40); WHITE BLOOD COUNT 8.3 10^3/uL (4.0-10.0)
[2020-11-09 06:39] LABS: BLOOD UREA NITROGEN 24 MG/DL (7-18); CALCIUM LEVEL 9.8 MG/DL (8.8-10.2); CARBON DIOXIDE LEVEL 28 MEQ/L (21-32); CHLORIDE LEVEL 104 MEQ/L (98-107); CREATININE FOR GFR 0.76 MG/DL (0.55-1.30); GLOMERULAR FILTRATION RATE > 60.0 (>39); GLUCOSE, FASTING 94 MG/DL (70-100); POTASSIUM SERUM 3.7 MEQ/L (3.5-5.1); SODIUM LEVEL 140 MEQ/L (136-145)
[2020-11-09] MEDS: METOPROLOL TART 25 MG TABLET PO SCH ×2 (08:29→20:45)
[2020-11-09] MEDS: OMEPRAZOLE 20 MG CAP PO SCH (08:29)
[2020-11-09] MEDS: FENOFIBRATE 145 MG TAB (TRICOR) PO SCH (08:29)
[2020-11-09] MEDS: VENLAFAXINE **XR** 75MG CAPSULE PO SCH ×2 (08:30→16:03)
[2020-11-09] MEDS: hydrOXYzine 25 MG TAB PO PRN ×2 (08:30→23:03)
[2020-11-09] MEDS: amLODIPine 5 MG TAB PO SCH (08:30)
[2020-11-09 12:22] VITALS: BP 137/64
[2020-11-09] MEDS ORDERED: CALCIUM CARBONATE 500 MG CHEW U/D PO ONE (13:00)
--- NOTE | 2020-11-09 19:19 | ECGEPIP ---
[facility] Test Date: 2020-11-09 Pat Name: TAY SOSA Department: Room: [place] [address] Gender: Female Frame Stylist: ALISHA : 1945 Requested By: PAO Castillo Order Number: [id number] Reading MD: Alverto Russell Measurements Intervals Lucan Rate: 74 P: 49 OK: 144 QRS: 6 QRSD: 90 T: 78 QT: 442 QTc: 490 Interpretive Statements Normal sinus rhythm with premature atrial complexes Left ventricular hypertrophy with repolarization abnormality No significant change when compared to prior tracing of 11/06/2020 Electronically Signed on 11-09-2020 19:18:55 EDT by Alverto Russell
[2020-11-09] MEDS: RAMELTEON 8 MG TAB (ROZEREM) PO PRN (20:42)
[2020-11-09] MEDS: ATORVASTATIN 20 MG TAB PO SCH (20:43)
[2020-11-09] MEDS: oxyBUTYnin *DITROPAN XL* 5 MG TABCR PO SCH (20:43)
[2020-11-09] MEDS: DONEPEZIL 5 MG TAB PO SCH (20:43)
[2020-11-10 06:00] VITALS: BP 135/57
[2020-11-10] MEDS: OMEPRAZOLE 20 MG CAP PO SCH (09:01)
[2020-11-10] MEDS: FENOFIBRATE 145 MG TAB (TRICOR) PO SCH (09:01)
[2020-11-10] MEDS: VENLAFAXINE **XR** 75MG CAPSULE PO SCH ×2 (09:01→16:19)
[2020-11-10] MEDS: hydrOXYzine 25 MG TAB PO PRN ×2 (09:01→22:58)
[2020-11-10] MEDS: amLODIPine 5 MG TAB PO SCH (09:02)
[2020-11-10] MEDS: METOPROLOL TART 25 MG TABLET PO SCH ×2 (09:03→20:12)
[2020-11-10] MEDS: ONDANSETRON 4 MG ORAL DISINTEGRATING TAB PO PRN (09:17)
[2020-11-10] MEDS: METOCLOPRAMIDE 10 MG TAB PO PRN (11:01)
[2020-11-10] MEDS: ACETAMINOPHEN TAB 650MG DOSE (2X325MG) PO PRN ×2 (12:54→22:59)
[2020-11-10] MEDS: ATORVASTATIN 20 MG TAB PO SCH (20:12)
[2020-11-10] MEDS: oxyBUTYnin *DITROPAN XL* 5 MG TABCR PO SCH (20:12)
[2020-11-10] MEDS: DONEPEZIL 5 MG TAB PO SCH (20:12)
[2020-11-10] MEDS: RAMELTEON 8 MG TAB (ROZEREM) PO PRN (20:14)
[2020-11-11 06:00] VITALS: BP 129/59
[2020-11-11 06:24] LABS: HEMATOCRIT 36.6 % (36.0-47.0); HEMOGLOBIN 11.8 g/dl (12.0-15.5); MEAN CORPUSCULAR HEMOGLOBIN 32.4 pg (27.0-33.0); MEAN CORPUSCULAR HGB CONC 32.2 g/dl (32.0-36.5); MEAN CORPUSCULAR VOLUME 100.5 fl (80.0-96.0); PLATELET COUNT, AUTOMATED 389 10^3/uL (150-450); RED BLOOD COUNT 3.64 10^6/uL (4.00-5.40)
[2020-11-11 06:46] LABS: BLOOD UREA NITROGEN 16 MG/DL (7-18); CALCIUM LEVEL 8.8 MG/DL (8.8-10.2); CARBON DIOXIDE LEVEL 32 MEQ/L (21-32); CHLORIDE LEVEL 102 MEQ/L (98-107); CREATININE FOR GFR 0.57 MG/DL (0.55-1.30); GLOMERULAR FILTRATION RATE > 60.0 (>39); GLUCOSE, FASTING 88 MG/DL (70-100); POTASSIUM SERUM 3.4 MEQ/L (3.5-5.1); SODIUM LEVEL 140 MEQ/L (136-145)
[2020-11-11] MEDS ORDERED: POTASSIUM CHLORIDE 10 MEQ SR TABLET PO ONE (07:15)
[2020-11-11] MEDS: FENOFIBRATE 145 MG TAB (TRICOR) PO SCH (08:10)
[2020-11-11] MEDS: VENLAFAXINE **XR** 75MG CAPSULE PO SCH (08:10)
[2020-11-11] MEDS: OMEPRAZOLE 20 MG CAP PO SCH (08:10)
[2020-11-11 08:12] VITALS: BP 125/63
[2020-11-11] MEDS: METOPROLOL TART 25 MG TABLET PO SCH (08:12)
[2020-11-11] MEDS: amLODIPine 5 MG TAB PO SCH (08:12)
[2020-11-11] MEDS: ONDANSETRON 4 MG ORAL DISINTEGRATING TAB PO PRN (08:48)
[2020-11-11] MEDS: METOCLOPRAMIDE 10 MG TAB PO PRN (11:06)
[2020-11-11] MEDS ORDERED: HYDR-3363 PO (11:39)
[2020-11-11] MEDS ORDERED: METO10TA2 PO (11:39)
[2020-11-11] MEDS ORDERED: METO1TAB87 PO (11:39)
[2020-11-11] MEDS ORDERED: ONDA4TAB6 PO (11:39)
[2020-11-11] MEDS: hydrOXYzine 25 MG TAB PO PRN (12:42)
--- NOTE | 2020-11-11 15:20 | DS.PDOC ---
Discharge Summary General Date of Admission October 31, 2020 at 09:12 Date of Discharge November 11, 2020 Discharge Summary PROCEDURES PERFORMED DURING STAY: None ADMITTING DIAGNOSES: 1. Acute metabolic encephalopathy 2/2 UTI 2. UTI 3. Hypokalemia 4. History of COVID-19 infection 5. Hypertension 6. IBS 7. Chronic nausea/diarrhea 8. History of coccidiomycosis 9. Urinary incontinence 10. History of TIA 11. Chronic small vessel ischemic disease 12. Dementia 13. Depression 14. Dyslipidemia 15. GERD DISCHARGE DIAGNOSES: 1. Acute metabolic encephalopathy 2/2 E.coli UTI 2. E.coli UTI 3. Hypokalemia 4. History of COVID-19 infection 5. Hypertension 6. IBS 7. Chronic nausea/diarrhea 8. History of coccidiomycosis 9. Urinary incontinence 10. History of TIA 11. Chronic small vessel ischemic disease 12. Dementia 13. Depression 14. Dyslipidemia 15. GERD 16. Amyloid angiopathy with microbleeding COMPLICATIONS/CHIEF COMPLAINT: Fall, Metabolic Encephalopathy, & UTI. HISTORY OF PRESENT ILLNESS: Copied from admitting physician's H&P " Patient is a 75-year-old female with past medical history of Covid 19 infection, hypertension, chronic nausea, hx of pulmonary coccidiomycosis, depression, hyperlipidemia, history of TIA who was sent to the emergency room today status post fall with increased altered mental status. The patient lives in assisted living facility and was found down for an unknown amount of time. No known LOC, no bowel or bladder incontinence, tongue biting or post ictal phase documented/noted. She appeared more confused and was unable to recall her name, date of or the people around her. The patient has baseline dementia but is normally able to recall all of these faxed along with familiar faces. She had another fall several weeks ago for which she was hospitalized 10/05/2104/ 1 where she was treated for metabolic encephalopathy seemed to have resolved rapidly with IV fluids, no new infections were identified aside from Covid 19 which she was asymptomatic for and found on a routine Covid 19 tests to send back to assisted living. The patient was kept at the hospital until her quarantine time was up. The patient does not remember the events of falling but there is no documented tremoring, post ictal phase, hitting of her head, document of chest pain, shortness of breath, fevers, chills and has been eating well at this visit living facility. Due to the events of today she was sent to the emergency room for further evaluation. In the emergency room, vital signs were 97.6F, heart rate [id number] sinus tachycardia, RR 18, blood pressure 853142/6886, 96% on room air. With ER staff she was greatly confused and could not even recommend her son at the bedside. She was started on IV fluids. The VBC was normal H&H stable, potassium low at 3.0, lactic acid high at 3.1. QTc was found to be 500 and ECG was similar to prior on file, sinus arrhythmia. UA positive, blood cultures collected and sent. CT head was negative for any acute intracranial abnormalities. CXR: Persistent changes right lower lobe. She complained of chills and was tremoring. Also complained of dysuria, increased urinary frequency, some suprapubic discomfort on exam. She denied CVA tenderness, n/v/d, decreased appetite. She was more awake and conversant with me by the time I was able to come and see her. She was still lethargic; however, and not Ox3. She was admitted for further workup/treatment of acute metabolic encephalopathy, r/o 2/2 to UTI, sepsis, fall. " HOSPITAL COURSE: Her UTI was treated with Rocephin, and her acute metabolic encephalopathy improved. Urine culture grew cartagena-sensitive E.coli and patient was planned to transition to Ceftin to be transferred back to [facility]. Overnight, she was given Haldol and her discharged was delayed. After that, she tested positive for COVID-19. Patient had to stay over the weekend. Patient felt anxious and had palpitations. She told me her palpitations were making her more anxious. Her EKG demonstrated frequent PACs. Started patient on Lopressor. She tolerated the medication and was less anxious. Over the weekend (11/06/20), she tried to sit on her bed and missed the bed and landed on the floor. It was an unwitnessed fall. She was complaining of upper back pain. CT thoracic spine was obtained which demonstrated an age indeterminate compression deformity at T12 which may be acute. Otherwise a CT head was obtained which demonstrated a small density that may either be calcification or hemorrhage. Patient was neurologic ally intact without any weakness. Spoke with Dr. Lyon, who recommended an MRI. MRI suggested a bleed and a repeat CT head was obtained. CT head read as unchanged in size. Neurology, Dr. Lyon, looked at the images and the MRI. Patient has amyloid angiopathy, and they are prone to microbleeds. There is no further work up needed. Patient should not be on anticoagulation unless there is a strong indic ation for it such as in secondary prevention in CAD. For now, we will hold aspirin. The risks vs benefits of aspirin in TIA will have to be revisited in the next few weeks/months. Otherwise, today, she tested negative for COVID. She felt well and felt ready to return back to [facility]. Patient was discharged back to [facility]. She had already completed her antibiotic course for the UTI and does not need antibiotics at this time. DISCHARGE MEDICATIONS: Please see below. ALLERGIES: Please see below. PHYSICAL EXAMINATION ON DISCHARGE: VITAL SIGNS: Please see below. GENERAL: Comfortable, in no apparent distress. HEENT: Head normocephalic/atraumatic, EOMI, sclera clear. NECK: Supple. RESPIRATORY: Lungs clear to auscultation bilaterally, no rales, wheeze or rhonchi. CARDIOVASCULAR: Regular rate and rhythm. ABDOMEN: Soft, nontender, no guarding or rebound tenderness. Normal bowel sounds. MUSCLE SKELETAL: No pitting edema bilaterally. NEUROLOGICAL: CN 312 grossly intact, no focal deficits noted. PSYCHOLOGICAL: Mildly anxious LABORATORY DATA: Please see below. IMAGING: Radiologist interpretation CT cervical spine 1. Rotatory subluxation at C1-C2, not seen on the recent prior CT scan. This may be related to acute ligamentous injury or chronic ligamentous laxity. There are degenerative changes at the odontoid process and anterior arch of C1. 2. No acute fractures identified. 3. Anterior fusion of C4 through C6 without evidence of complication. 4. Multilevel hypertrophic facet arthropathy. CT head 10/31/2020 1. Mild diffuse parenchymal volume loss and heterogeneous low attenuation in the white matter bilaterally, unchanged from the prior exam, and probably related to chronic small vessel ischemic disease. 2. No evidence of acute infarct or hemorrhage. CT head 11/06/2020 1. There is mild parenchymal volume loss. White matter changes are demonstrated in the subcortical, centrum semiovale and periventricular white matter consistent with chronic age related small vessel ischemic changes. 2. The degree of ventricular dilatation is normal for age and/or degree of atrophy present. 3. 2.7 mm punctate density in the left temporal lobe as described above. Differential diagnosis includes a small focus of calcification and less likely a small focal hemorrhage. Further evaluation with thin section imaging suggested. CT thoracic spine 1. Age indeterminate compression deformity at T12. Clinical correlation to exclude acute fracture suggested. 2. Findings consistent with remote intrathoracic granulomatous infection. MRI brain 1. There is signal blooming at the left temporal lobe in region of hyperdensity visualized on CT examination compatible with small hemorrhagic focus. 2. There is prominent white matter hyperintensity involving the bilateral temporal lobes, greater than expected for chronic microvascular ischemic disease. Differential considerations include infectious/inflammatory process or infiltrative neoplasia. Follow-up is recommended. PROGNOSIS: Good ACTIVITY: As tolerated. DIET: 2gm sodium DISCHARGE PLAN: Return to [facility] DISPOSITION: [facility]. DISCHARGE INSTRUCTIONS: 1. Follow up with your PCP within 1 week DISCHARGE CONDITION: Stable. Total time spent on discharge planning, discharge summary, and medication reconciliation: 45 minutes Vital Signs/I&Os Vital Signs Date Time Temp Pulse Resp B/P (MAP) Pulse Ox O2 Delivery O2 Flow Rate FiO2 11/11/20 08:12 70 125/63 11/11/20 06:00 97.2 18 95 Room Air I&O- Last 24 Hours up to 6 AM 11/11/20 06:00 Intake Total 2130 ml Balance 2130 ml Laboratory Data Labs 24H Laboratory Tests 2 11/11/20 05:46: Nucleated Red Blood Cells % (auto) 0.0, Anion Gap 6L, Glomerular Filtration Rate > 60.0, Calcium Level 8.8 11/11/20 05:49: Coronavirus (COVID-19)(PCR) NEGATIVE CBC/BMP Laboratory Tests 11/11/20 05:46 Discharge Medications Scheduled Amlodipine Besylate (Amlodipine Besylate) 5 Mg Tablet, 5 MG PO DAILY, (Reported) Aspirin (Aspirin) 81 Mg Tab.chew, 81 MG PO DAILY, (Reported) Atorvastatin Calcium (Atorvastatin Calcium) 40 Mg Tablet, 40 MG PO QHS, (Repor gayle) Cyanocobalamin (Vitamin B-12) (B-12) 1,000 Mcg Tablet, 1,000 MCG PO DAILY, (Reported) Donepezil HCl (Donepezil HCl) 10 Mg Tablet, 10 MG PO QHS, (Reported) Fenofibrate (Fenofibrate) 160 Mg Tablet, 160 MG PO DAILY, (Reported) Metoprolol Tartrate (Metoprolol Tartrate) 25 Mg Tablet, 25 MG PO BID Omeprazole (Omeprazole) 20 Mg Capsule.dr, 40 MG PO DAILY, (Reported) STARTED 10/28/20, ENDS 11/26/20 Oxybutynin Chloride (Ditropan Xl) 5 Mg Tab.er.24, 5 MG PO QHS, (Reported) Venlafaxine HCl (Venlafaxine HCl ER) 150 Mg Cap.er.24h, 150 MG PO BID, (Reported) 0800, 1700 Scheduled PRN Acetaminophen (Acetaminophen) 325 Mg Tablet, 650 MG PO Q4H PRN for PAIN, (Reported) Diclofenac Sodium (Voltaren) 100 Gm Gel..gram., 4 GRAM TD QID PRN for PAIN, (Reported) APPLY TO NECK, UPPER BACK, ANKLES, FEET, AND TOES Hydroxyzine HCl (Hydroxyzine HCl) 25 Mg Tablet, 25 MG PO BIDP PRN for ANXIETY Magnesium Hydroxide (Milk of Magnesia) 400 Mg/5 Ml Oral.susp, 30 ML PO DAILY PRN for CONSTIPATION, (Reported) Metoclopramide HCl (Metoclopramide HCl) 10 Mg Tablet, 10 MG PO Q6H PRN for NAUSEA OR VOMITING Ondansetron (Ondansetron Odt) 4 Mg Tab.rapdis, 4 MG PO BID PRN for NAUSEA Polyethylene Glycol 3350 (Miralax) 17 Gm Powd.pack, 17 GM PO DAILY PRN for CONSTIPATION, (Reported) Ramelteon (Rozerem) 8 Mg Tablet, 8 MG PO QHS PRN for INSOMNIA, (Reported) Allergies Coded Allergies: morphine (Verified Adverse Reaction, Mild, restlessness, 10/01/20) PAO WILLS 1, 2021 15:09
== END 2020-11-11 12:50 | DRG 689 ==
LOC: M ED 04:48 → M ED INP 09:12 → ENRESERV 14:13 → M MSPAV 14:42
PROVIDERS: ADMIT Internal Medicine; ATTEND Internal Medicine
DX: N39.0 Urinary tract infection, site not specified (principal); G93.41 Metabolic encephalopathy; B38.2 Pulmonary coccidioidomycosis, unspecified; E85.4 Organ-limited amyloidosis; I10 Essential (primary) hypertension; F32.9 Major depressive disorder, single episode, unspecified; E78.5 Hyperlipidemia, unspecified; Z86.73 Personal history of transient ischemic attack (TIA), and cerebral infarction without residual deficits; F03.90 Unspecified dementia, unspecified severity, without behavioral disturbance, psychotic disturbance, mood disturbance, and anxiety; K76.0 Fatty (change of) liver, not elsewhere classified; Z72.3 Lack of physical exercise; I73.9 Peripheral vascular disease, unspecified; K21.9 Gastro-esophageal reflux disease without esophagitis; Z86.16 Personal history of COVID-19; Z87.19 Personal history of other diseases of the digestive system; Z90.49 Acquired absence of other specified parts of digestive tract; Z98.1 Arthrodesis status; E87.6 Hypokalemia; E86.0 Dehydration; K58.0 Irritable bowel syndrome with diarrhea; E73.9 Lactose intolerance, unspecified; R32 Unspecified urinary incontinence; Z79.899 Other long term (current) drug therapy; Z88.5 Allergy status to narcotic agent; Z20.822 Contact with and (suspected) exposure to COVID-19; B96.20 Unspecified Escherichia coli [E. coli] as the cause of diseases classified elsewhere; I68.0 Cerebral amyloid angiopathy; S40.021A Contusion of right upper arm, initial encounter; S22.080S Wedge compression fracture of T11-T12 vertebra, sequela; W01.0XXA Fall on same level from slipping, tripping and stumbling without subsequent striking against object, initial encounter; Y92.230 Patient room in hospital as the place of occurrence of the external cause

== ENCOUNTER → 2020-12-09 | Outpatient (REF) | payer MEDICAID, MEDICARE ==
[~2020-12-09] MED LIST changes: +CEFU50TA PO; +METO1TAB87 PO; +OMEP1CAP73 PO
== END ==
LOC: M SFHCCLAY 15:09
PROVIDERS: ATTEND Physician Assistant
DX: R35.0 Frequency of micturition (principal)

== ENCOUNTER → 2020-12-09 | Outpatient (CLI) | payer MEDICAID, MEDICARE ==
--- NOTE | 2020-12-09 15:43 | REP ---
INDICATION: M54.5 ACUTE BILATERAL LOW BACK PAIN WITHOUT SCIATICA. COMPARISON: Comparison is made with images from CT study of the abdomen and pelvis July 25, 2020.. TECHNIQUE: Five views of the lumbar spine are acquired. FINDINGS: There is straightening of the normal lumbar lordosis. Lumbar vertebral body heights are preserved. There is a grade 1 degenerative L4-5 spondylolisthesis which measures 5 mm. This is unchanged from the CT images from July 25, 2020. There is no evidence of spondylolysis. There is advanced osteoarthritic facet hypertrophy and sclerosis bilaterally at 4 5 and on the left at 5 1 and 3 4. There is advanced degenerative disc disease at L1-2 and L2-3. Vacuum phenomena are seen at these 2 disc levels which are narrowed. There is reactive sclerosis at L1-2 and L2-3. Mild narrowing of the L4-5 disc is also noted. AP view shows a levoconvex rotoscoliotic curve in the lumbar spine. 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 Levoconvex curvature. Degenerative 5 mm grade 1 L4-5 spondylolisthesis. No acute bony abnormality <Electronically signed by Akbar Rdz > 12/09/20 [id number]
== END ==
LOC: M CLY 15:11
PROVIDERS: ATTEND Physician Assistant
DX: M43.16 Spondylolisthesis, lumbar region (principal); M54.5 Low back pain
CPT/HCPCS: 72110; 81002; 87086; G0463

== ENCOUNTER → 2020-12-25 | Outpatient (CLI) | payer MEDICAID, MEDICARE ==
--- NOTE | 2020-12-25 11:50 | REP ---
INDICATION: ABN FINDINGS OF LUNG FIELD. COMPARISON: Comparison CT study August 19, 2020.. TECHNIQUE: Helical scanning is acquired. 3 mm axial images are generated. Coronal and sagittal MPR and coronal MIP images are generated. 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 On axial CT images, there is extensive bronchiectasis and lobar collapse in the distribution of the right middle lobe. This is similar in appearance to the right middle lobe changes seen on August 19, 2020. There is also bronchiectasis in the right lower lobe distribution but the right lower lobe is improved in aeration compared with the August 19, 2020 study. There is evidence of bronchial stenosis at the origin of the right middle lobe bronchus and moderate stenosis is seen in the right lower lobe bronchus. The left lung is well aerated and clear. There is a tiny 2 mm noncalcified scratch there is a tiny 3 mm noncalcified nodule in the left lower lobe on page 63 of 100 in series 201 of today's study. This is unchanged from the August 19, 2020 study. There are 2 calcified granulomas in the right lower lobe as previously noted. There is no evidence of pleural or pericardial effusion. No hilar or mediastinal mass is seen. No evidence of adenopathy. Normal adrenal glands are observed. The visualized upper abdominal structures are unremarkable. 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 There is improved aeration in the right lower lobe when compared with the August 19, 2020 study <Electronically signed by Akbar Rdz > 12/25/20 [id number]
== END ==
LOC: M RAD 11:21
PROVIDERS: ATTEND Internal Medicine Pulmonary Disease
DX: R91.8 Other nonspecific abnormal finding of lung field (principal)

== ENCOUNTER → 2020-12-31 | Outpatient (REF) | payer MEDICARE ==
[2020-12-31 13:29] LABS: BLOOD UREA NITROGEN 18 MG/DL (7-18); CALCIUM LEVEL 9.6 MG/DL (8.8-10.2); CARBON DIOXIDE LEVEL 30 MEQ/L (21-32); CHLORIDE LEVEL 104 MEQ/L (98-107); CREATININE FOR GFR 0.77 MG/DL (0.55-1.30); GLOMERULAR FILTRATION RATE > 60.0 (>39); GLUCOSE, FASTING 93 MG/DL (70-100); NT-PRO BNP 279 PG/ML (<450); POTASSIUM SERUM 3.6 MEQ/L (3.5-5.1); SODIUM LEVEL 141 MEQ/L (136-145)
== END ==
PROVIDERS: ATTEND Physician Assistant
DX: R60.0 Localized edema (principal)

== ENCOUNTER → 2021-01-12 | Outpatient (CLI) | payer MEDICARE ==
[~2021-01-12] MED LIST changes: +OMEP-173 PO; -OMEP-218 PO
== END ==
LOC: M RAD 10:29
PROVIDERS: ATTEND Internal Medicine Pulmonary Disease
DX: R60.0 Localized edema (principal); M79.605 Pain in left leg

== ENCOUNTER → 2021-03-31 | Outpatient (REF) | payer MEDICARE ==
[~2021-03-31] MED LIST changes: -OMEP-173 PO; +OMEP-218 PO
== END ==
PROVIDERS: ATTEND Family Medicine
DX: R19.5 Other fecal abnormalities (principal)

== ENCOUNTER → 2021-06-08 | Outpatient (CLI) | payer MEDICARE ==
[~2021-06-08] MED LIST changes: +OMEP-173 PO; -OMEP-218 PO
== END ==
LOC: M WHC 09:11
PROVIDERS: ATTEND Family Medicine
DX: Z12.31 Encounter for screening mammogram for malignant neoplasm of breast (principal); Z78.0 Asymptomatic menopausal state; Z80.3 Family history of malignant neoplasm of breast

== ENCOUNTER → 2021-06-25 | Outpatient (REF) | payer MEDICARE ==
[~2021-06-25] MED LIST changes: -OMEP-173 PO; +OMEP-218 PO
== END ==
PROVIDERS: ATTEND Family Medicine
DX: Z20.822 Contact with and (suspected) exposure to COVID-19 (principal)

== ENCOUNTER → 2021-08-20 | Outpatient (CLI) | payer MEDICARE ==
[~2021-08-20] MED LIST changes: +OMEP-173 PO; -OMEP-218 PO
== END ==
LOC: M RAD 12:44
PROVIDERS: ATTEND Internal Medicine Pulmonary Disease
DX: R91.8 Other nonspecific abnormal finding of lung field (principal)

== ENCOUNTER → 2021-09-02 | Outpatient (CLI) | payer MEDICARE | LOC: M RAD 10:18 | PROVIDERS: ATTEND Internal Medicine Pulmonary Disease | DX: J47.9 Bronchiectasis, uncomplicated (principal) ==

== ENCOUNTER 2021-09-07 10:08 | Outpatient (RCR) | payer MEDICARE | END 2021-09-10 | LOC: M ST 10:08 | PROVIDERS: ATTEND Internal Medicine Pulmonary Disease | DX: Z87.01 Personal history of pneumonia (recurrent) (principal) ==

== ENCOUNTER 2021-10-05 12:08 | Outpatient (RCR) | payer MEDICARE | END 2021-10-10 | LOC: M ST 12:08 | PROVIDERS: ATTEND Internal Medicine Pulmonary Disease | DX: Z87.01 Personal history of pneumonia (recurrent) (principal) ==

== ENCOUNTER → 2021-11-18 | Outpatient (CLI) | payer MEDICARE ==
[~2021-11-18] MED LIST changes: +E-Z-GAS II EFFERVESCENT PACKET (SODIUM BICARB./CITRIC ACID/SIMETHICONE) As Ordered ONE; +E-Z-HD 98% w/w 340GM SUSP BTL As Ordered ONE; +E-Z-PAQUE 96% w/w SUSP 176GM BTL As Ordered ONE
== END ==
LOC: M RAD 09:11
PROVIDERS: ATTEND Family Medicine
DX: R13.12 Dysphagia, oropharyngeal phase (principal); K22.9 Disease of esophagus, unspecified

== ENCOUNTER → 2022-05-19 | Outpatient (REF) | payer MEDICARE ==
[~2022-05-19] MED LIST changes: -E-Z-GAS II EFFERVESCENT PACKET (SODIUM BICARB./CITRIC ACID/SIMETHICONE) As Ordered ONE; -E-Z-HD 98% w/w 340GM SUSP BTL As Ordered ONE; -E-Z-PAQUE 96% w/w SUSP 176GM BTL As Ordered ONE
[2022-05-19 12:24] LABS: HEMATOCRIT 40.3 % (36.0-47.0); MEAN CORPUSCULAR HEMOGLOBIN 32.9 pg (27.0-33.0); MEAN CORPUSCULAR HGB CONC 32.3 g/dl (32.0-36.5); PLATELET COUNT, AUTOMATED 318 10^3/uL (150-450); RED BLOOD COUNT 3.95 10^6/uL (4.00-5.40); WHITE BLOOD COUNT 5.3 10^3/uL (4.0-10.0)
[2022-05-19 13:36] LABS: ALBUMIN 3.9 G/DL (3.2-5.2); ALKALINE PHOSPHATASE 71 U/L (46-116); ALT/SGPT 14 U/L (7.0-40); AST/SGOT 15 U/L (<34); BILIRUBIN,TOTAL 0.4 MG/DL (0.3-1.2); BLOOD UREA NITROGEN 13 MG/DL (9-23); CALCIUM LEVEL 9.1 MG/DL (8.3-10.6); CARBON DIOXIDE LEVEL 29 MMOL/L (20-31); CHLORIDE LEVEL 100 MMOL/L (98-107); CREATININE FOR GFR 0.81 MG/DL (0.55-1.30); GLOMERULAR FILTRATION RATE > 60.0 (>39); GLUCOSE, FASTING 102 MG/DL (74-106); POTASSIUM SERUM 3.9 MMOL/L (3.5-5.1); SODIUM LEVEL 137 MMOL/L (136-145); TOTAL PROTEIN 6.9 G/DL (5.7-8.2)
[2022-05-19 13:37] LABS: FREE T4 1.29 NG/DL (0.89-1.76)
== END ==
PROVIDERS: ATTEND Family Medicine
DX: I10 Essential (primary) hypertension (principal); K58.2 Mixed irritable bowel syndrome

== ENCOUNTER → 2022-05-20 | Outpatient (CLI) | payer MEDICARE | LOC: M RAD 11:48 | PROVIDERS: ATTEND Physician Assistant Medical | DX: R19.8 Other specified symptoms and signs involving the digestive system and abdomen (principal); J98.11 Atelectasis ==

== ENCOUNTER → 2022-08-17 | Outpatient (REF) | payer MEDICARE | PROVIDERS: ATTEND Family Medicine | DX: Z20.822 Contact with and (suspected) exposure to COVID-19 (principal) ==

== ENCOUNTER → 2022-08-27 | Outpatient (CLI) | payer MEDICARE | LOC: M WHC 12:47 | PROVIDERS: ATTEND Family Medicine | DX: Z12.31 Encounter for screening mammogram for malignant neoplasm of breast (principal); R91.8 Other nonspecific abnormal finding of lung field; J98.11 Atelectasis; J47.9 Bronchiectasis, uncomplicated ==

== ENCOUNTER → 2022-08-27 | Outpatient (CLI) | payer MEDICARE | LOC: M PLAIMG 13:26 | PROVIDERS: ATTEND Internal Medicine Pulmonary Disease | DX: R91.8 Other nonspecific abnormal finding of lung field (principal); J98.11 Atelectasis; J47.9 Bronchiectasis, uncomplicated ==

== ENCOUNTER → 2023-01-31 | Outpatient (REF) | payer MEDICARE, MEDICAID ==
[2023-01-31 08:28] LABS: BASO % 0.5 % (0.0-1.0); EOS # 0.1 10^3/uL (0.0-0.5); EOS % 2.1 % (0.0-3.0); HEMATOCRIT 35.3 % (36.0-47.0); HEMOGLOBIN 11.9 g/dl (12.0-15.5); LYMPH # 1.9 10^3/uL (1.5-5.0); LYMPH % 32.6 % (24.0-44.0); MEAN CORPUSCULAR HEMOGLOBIN 33.2 pg (27.0-33.0); MEAN CORPUSCULAR HGB CONC 33.7 g/dl (32.0-36.5); MEAN CORPUSCULAR VOLUME 98.6 fl (80.0-96.0); MONO # 0.8 10^3/uL (0.0-0.8); MONO % 14.1 % (2.0-8.0); NEUTROPHILS # 2.9 10^3/uL (1.5-8.5); NEUTROPHILS % 50.4 % (36.0-66.0); PLATELET COUNT, AUTOMATED 280 10^3/uL (150-450); RED BLOOD COUNT 3.58 10^6/uL (4.00-5.40); WHITE BLOOD COUNT 5.7 10^3/uL (4.0-10.0)
[2023-01-31 09:14] LABS: ALBUMIN 3.4 G/DL (3.2-5.2); ALKALINE PHOSPHATASE 71 U/L (46-116); ALT/SGPT 14 U/L (7.0-40); AST/SGOT 9 U/L (<34); BILIRUBIN,TOTAL 0.3 MG/DL (0.3-1.2); BLOOD UREA NITROGEN 9 MG/DL (9-23); CALCIUM LEVEL 8.6 MG/DL (8.3-10.6); CARBON DIOXIDE LEVEL 28 MMOL/L (20-31); CHLORIDE LEVEL 98 MMOL/L (98-107); CHOLESTEROL LEVEL 139 MG/DL (<200); CHOLESTEROL RISK RATIO 2.34 (<5); GLOMERULAR FILTRATION RATE > 60.0 (>39); GLUCOSE, FASTING 96 MG/DL (74-106); HDL CHOLESTEROL 59.3 MG/DL (>40); LDL CHOLESTEROL 55.3 MG/DL (<100); NON-HDL-C 79.7 MG/DL; POTASSIUM SERUM 3.2 MMOL/L (3.5-5.1); SODIUM LEVEL 135 MMOL/L (136-145); THYROID STIMULATING HORMONE 2.569 uIU/ML (0.55-4.78); TOTAL PROTEIN 6.1 G/DL (5.7-8.2); TRIGLYCERIDES LEVEL 122 MG/DL (<150)
[2023-01-31 09:15] LABS: FREE T4 1.21 NG/DL (0.89-1.76)
== END ==
PROVIDERS: ATTEND Family Medicine
DX: K58.2 Mixed irritable bowel syndrome (principal); I10 Essential (primary) hypertension; E78.5 Hyperlipidemia, unspecified

== ENCOUNTER → 2023-02-03 | Outpatient (REF) | payer MEDICARE ==
[~2023-02-03] MED LIST changes: -PREG200C PO; +PREG200C2 PO
[2023-02-03 17:41] LABS: LDH LACTATE DEHYDROGENASE 184 U/L (120-246)
[2023-02-03 17:46] LABS: FOLATE 8.13 NG/ML (>5.4); VITAMIN B12 LEVEL > 2000 PG/ML (211-911)
== END ==
LOC: M SFHCCLAY 14:05
PROVIDERS: ATTEND Family Medicine
DX: B34.9 Viral infection, unspecified (principal); D53.9 Nutritional anemia, unspecified

== ENCOUNTER → 2023-04-28 | Outpatient (REF) | payer MEDICARE ==
[~2023-04-28] MED LIST changes: -OXYB5TAB10 PO; +OXYB5TAB11 PO
[2023-04-28 18:10] LABS: BLOOD UREA NITROGEN 10 MG/DL (9-23); CALCIUM LEVEL 9.7 MG/DL (8.3-10.6); CARBON DIOXIDE LEVEL 29 MMOL/L (20-31); CHLORIDE LEVEL 96 MMOL/L (98-107); CREATININE FOR GFR 0.73 MG/DL (0.55-1.30); GLOMERULAR FILTRATION RATE > 60.0 (>39); GLUCOSE, FASTING 102 MG/DL (74-106); POTASSIUM SERUM 4.9 MMOL/L (3.5-5.1); SODIUM LEVEL 133 MMOL/L (136-145)
== END ==
LOC: M SFHCCLAY 11:30
PROVIDERS: ATTEND Family Medicine
DX: R30.0 Dysuria (principal); E87.6 Hypokalemia

== ENCOUNTER → 2023-07-27 | Outpatient (REF) | payer MEDICARE ==
[~2023-07-27] MED LIST changes: -MIRA1POW3 PO; +MIRA33506 PO; -OXYB5TAB11 PO; +OXYB5TAB14 PO
[2023-07-27 10:38] LABS: HEMATOCRIT 36.5 % (36.0-47.0); HEMOGLOBIN 12.3 g/dl (12.0-15.5); MEAN CORPUSCULAR HEMOGLOBIN 34.3 pg (27.0-33.0); MEAN CORPUSCULAR HGB CONC 33.7 g/dl (32.0-36.5); MEAN CORPUSCULAR VOLUME 101.7 fl (80.0-96.0); PLATELET COUNT, AUTOMATED 270 10^3/uL (150-450); RED BLOOD COUNT 3.59 10^6/uL (4.00-5.40); WHITE BLOOD COUNT 4.9 10^3/uL (4.0-10.0)
[2023-07-27 11:10] LABS: ALBUMIN 3.8 G/DL (3.2-5.2); ALKALINE PHOSPHATASE 52 U/L (46-116); ALT/SGPT 16 U/L (7.0-40); AST/SGOT 13 U/L (<34); BILIRUBIN,TOTAL 0.3 MG/DL (0.3-1.2); BLOOD UREA NITROGEN 13 MG/DL (9-23); CALCIUM LEVEL 8.6 MG/DL (8.3-10.6); CARBON DIOXIDE LEVEL 29 MMOL/L (20-31); CHLORIDE LEVEL 100 MMOL/L (98-107); CHOLESTEROL LEVEL 147 MG/DL (<200); CHOLESTEROL RISK RATIO 2.58 (<5); CREATININE FOR GFR 0.77 MG/DL (0.55-1.30); GLOMERULAR FILTRATION RATE > 60.0 (>39); GLUCOSE, FASTING 97 MG/DL (74-106); HDL CHOLESTEROL 56.8 MG/DL (>40); LDL CHOLESTEROL 69.4 MG/DL (<100); NON-HDL-C 90.2 MG/DL; SODIUM LEVEL 134 MMOL/L (136-145); TOTAL PROTEIN 5.9 G/DL (5.7-8.2); TRIGLYCERIDES LEVEL 104 MG/DL (<150)
[2023-07-27 11:11] LABS: THYROID STIMULATING HORMONE 1.969 uIU/ML (0.55-4.78)
== END ==
PROVIDERS: ATTEND Physician Assistant
DX: E78.5 Hyperlipidemia, unspecified (principal); D53.9 Nutritional anemia, unspecified

== ENCOUNTER → 2023-08-24 | Outpatient (CLI) | payer MEDICARE | LOC: M PLAIMG 11:11 | PROVIDERS: ATTEND Internal Medicine Pulmonary Disease | DX: J47.9 Bronchiectasis, uncomplicated (principal) ==

== ENCOUNTER 2023-12-08 14:32 | Emergency (ER) | payer MEDICAID, MEDICARE ==
[~2023-12-08] VITALS: Ht 157.5 cm; Wt 55.7 kg
[~2023-12-08 14:32] MED LIST changes: +ONDA-282 PO; -ONDA4TAB6 PO
[2023-12-08] MEDS ORDERED: MEMA10TA (14:41)
[2023-12-08 15:18] LABS: BASO % 0.7 % (0.0-1.0); EOS # 0.1 10^3/uL (0.0-0.5); HEMOGLOBIN 13.6 g/dl (12.0-15.5); LYMPH # 1.4 10^3/uL (1.5-5.0); LYMPH % 23.5 % (24.0-44.0); MEAN CORPUSCULAR HEMOGLOBIN 34.6 pg (27.0-33.0); MEAN CORPUSCULAR VOLUME 101.8 fl (80.0-96.0); MONO # 0.7 10^3/uL (0.0-0.8); MONO % 12.5 % (2.0-8.0); NEUTROPHILS # 3.7 10^3/uL (1.5-8.5); PLATELET COUNT, AUTOMATED 331 10^3/uL (150-450); RED BLOOD COUNT 3.93 10^6/uL (4.00-5.40); WHITE BLOOD COUNT 5.9 10^3/uL (4.0-10.0)
[2023-12-08 15:45] LABS: ALBUMIN 4.3 G/DL (3.2-5.2); ALKALINE PHOSPHATASE 70 U/L (46-116); ALT/SGPT 21 U/L (7.0-40); AST/SGOT 14 U/L (<34); BILIRUBIN,DIRECT 0.1 MG/DL (<0.4); BILIRUBIN,TOTAL 0.4 MG/DL (0.3-1.2); BLOOD UREA NITROGEN 14 MG/DL (9-23); CALCIUM LEVEL 9.7 MG/DL (8.3-10.6); CARBON DIOXIDE LEVEL 30 MMOL/L (20-31); CHLORIDE LEVEL 100 MMOL/L (98-107); CREATININE FOR GFR 0.74 MG/DL (0.55-1.30); GLOMERULAR FILTRATION RATE > 60.0 (>32); GLUCOSE, FASTING 112 MG/DL (74-106); POTASSIUM SERUM 4.3 MMOL/L (3.5-5.1); SODIUM LEVEL 133 MMOL/L (136-145); TOTAL PROTEIN 7.1 G/DL (5.7-8.2)
[2023-12-08 15:50] LABS: THYROID STIMULATING HORMONE 1.272 uIU/ML (0.55-4.78)
[2023-12-08] MEDS: NS 500 ML IV ONE (16:04)
[2023-12-08] MEDS: NS 1,000 ML IV SCH (16:04)
[2023-12-08 16:48] LABS: OSMOLALITY SERUM 293 MOSM/KG (280-301)
[2023-12-08 22:00] VITALS: O2SAT 96
[2023-12-08 22:16] VITALS: BP 141/75; TEMP 98; O2SAT 96
[2023-12-10] MEDS ORDERED: AMOX875T PO (11:45)
== END 2023-12-08 22:19 | disposition home or self-care (01) ==
LOC: M ED 14:32
DX: R42 Dizziness and giddiness (principal); I68.0 Cerebral amyloid angiopathy; E78.5 Hyperlipidemia, unspecified; F32.A Depression, unspecified; R41.9 Unspecified symptoms and signs involving cognitive functions and awareness; Z86.73 Personal history of transient ischemic attack (TIA), and cerebral infarction without residual deficits

== ENCOUNTER → 2023-12-28 | Outpatient (REF) | payer MEDICARE ==
[~2023-12-28] MED LIST changes: +AMOX875T PO; +MEMA10TA
[2023-12-28 12:12] LABS: BLOOD UREA NITROGEN 15 MG/DL (9-23); CALCIUM LEVEL 9.6 MG/DL (8.3-10.6); CARBON DIOXIDE LEVEL 29 MMOL/L (20-31); CHLORIDE LEVEL 98 MMOL/L (98-107); CREATININE FOR GFR 0.79 MG/DL (0.55-1.30); GLOMERULAR FILTRATION RATE > 60.0 (>32); GLUCOSE, FASTING 101 MG/DL (74-106); POTASSIUM SERUM 4.3 MMOL/L (3.5-5.1); SODIUM LEVEL 134 MMOL/L (136-145)
== END ==
PROVIDERS: ATTEND Family Medicine
DX: E85.89 Other amyloidosis (principal); I68.0 Cerebral amyloid angiopathy

== ENCOUNTER → 2024-05-30 | Outpatient (CLI) | payer MEDICARE | LOC: M WHC 14:08 | PROVIDERS: ATTEND Family Medicine | DX: Z12.31 Encounter for screening mammogram for malignant neoplasm of breast (principal) ==

== ENCOUNTER 2024-07-06 10:57 | Emergency (ER) | payer MEDICARE ==
[~2024-07-06] VITALS: Ht 157.5 cm; Wt 57.7 kg
[2024-07-06 14:22] VITALS: BP 137/62; TEMP 98.1; O2SAT 96
== END 2024-07-06 14:23 | disposition home or self-care (01) ==
LOC: M ED 10:57
DX: S06.0X0A Concussion without loss of consciousness, initial encounter (principal); W18.30XA Fall on same level, unspecified, initial encounter; Y92.129 Unspecified place in nursing home as the place of occurrence of the external cause; Y93.9 Activity, unspecified; Y99.9 Unspecified external cause status; I10 Essential (primary) hypertension; Z86.73 Personal history of transient ischemic attack (TIA), and cerebral infarction without residual deficits; Z79.82 Long term (current) use of aspirin; Z79.899 Other long term (current) drug therapy; Z88.5 Allergy status to narcotic agent

== ENCOUNTER → 2024-08-02 | Outpatient (CLI) | payer MEDICARE | LOC: M WHC 09:51 | PROVIDERS: ATTEND Nurse Practitioner Family | DX: Z78.0 Asymptomatic menopausal state (principal) ==

== ENCOUNTER → 2024-12-25 | Outpatient (CLI) | payer MEDICARE, MEDICAID ==
[2024-12-25 18:28] LABS: BASO # 0.0 10^3/uL (0.0-0.2); BASO % 0.5 % (0.0-1.0); EOS # 0.1 10^3/uL (0.0-0.5); EOS % 1.4 % (0.0-3.0); LYMPH # 1.6 10^3/uL (1.5-5.0); LYMPH % 26.7 % (24.0-44.0); MONO # 0.8 10^3/uL (0.0-0.8); MONO % 13.7 % (2.0-8.0); NEUTROPHILS # 3.4 10^3/uL (1.5-8.5); NEUTROPHILS % 57.4 % (36.0-66.0); PLATELET COUNT, AUTOMATED 313 10^3/uL (150-450)
[2024-12-25 18:32] LABS: ALT/SGPT 24.0 U/L (7.0-40); AST/SGOT 22.0 U/L (<34); CALCIUM LEVEL 10.3 MG/DL (8.3-10.6); CARBON DIOXIDE LEVEL 30.0 MMOL/L (20-31); CHLORIDE LEVEL 94.0 MMOL/L (98-107); CHOLESTEROL LEVEL 154.0 MG/DL (<200); CHOLESTEROL RISK RATIO 2.01 (<5); CREATININE FOR GFR 0.77 MG/DL (0.55-1.30); GLOMERULAR FILTRATION RATE 77.5 (>32); LDL CHOLESTEROL 61.5 MG/DL (<100); NON-HDL-C 77.5 MG/DL; POTASSIUM SERUM 4.8 MMOL/L (3.5-5.1); SODIUM LEVEL 134.0 MMOL/L (136-145); TRIGLYCERIDES LEVEL 80.0 MG/DL (<150)
[2024-12-25 18:36] LABS: FREE T4 1.46 NG/DL (0.89-1.76)
== END ==
LOC: M PLALAB 14:19
PROVIDERS: ATTEND Nurse Practitioner Family
DX: E78.5 Hyperlipidemia, unspecified (principal); I10 Essential (primary) hypertension; K21.9 Gastro-esophageal reflux disease without esophagitis; D53.9 Nutritional anemia, unspecified

== ENCOUNTER → 2025-06-04 | Outpatient (CLI) | payer MEDICARE, MEDICAID ==
[~2025-06-04] MED LIST changes: -PROC5TAB57 PO; +PROC5TAB81 PO
== END ==
LOC: M WHC 13:59
PROVIDERS: ATTEND Nurse Practitioner Family
DX: Z12.31 Encounter for screening mammogram for malignant neoplasm of breast (principal); R92.313 Mammographic fatty tissue density, bilateral breasts